=== PATIENT | female | born 1960 | race Caucasian/White ===

== ENCOUNTER → 2017-10-14 12:03 | Outpatient (CLI) | payer OTHER, SELFPAY | PROVIDERS: Family Provider Family Medicine; PCP Family Medicine; Visit Provider Family Medicine | DX: Z12.31 Encounter for screening mammogram for malignant neoplasm of breast (principal); N63.10 Unspecified lump in the right breast, unspecified quadrant | CPT/HCPCS: 77063; 77067 ==

== ENCOUNTER → 2017-10-19 12:13 | Outpatient (CLI) | payer OTHER, SELFPAY | PROVIDERS: Family Provider Family Medicine; PCP Family Medicine; Visit Provider Family Medicine | DX: R92.8 Other abnormal and inconclusive findings on diagnostic imaging of breast (principal) | CPT/HCPCS: 76642 ==

== ENCOUNTER → 2017-11-11 12:15 | Outpatient (CLI) | payer OTHER, SELFPAY ==
--- NOTE | 2017-11-11 12:17 | US_ITS ---
STUDY: ULTRASOUND BREAST - RIGHT REASON FOR EXAM: Female, 57 years old. Attempted ultrasound-guided biopsy of the 7 mm x 7 mm x 3 mm hypoechoic nodule at 11:00 position of the breast at 4 cm from the nipple. TECHNIQUE: Axial and longitudinal images of the RIGHT breast were performed with a high resolution ultrasound transducer. COMPARISON: Comparison is made with prior ultrasound dated October 19, 2017. FINDINGS: RIGHT Breast: Not technically able to do a biopsy of the mentioned nodular density due to limited visualization. US/Breast Limited Unilateral IMPRESSION: Incomplete biopsy of the hypoechoic nodular density at the 11:00 position breast at 4 cm from the nipple. A 3 month follow-up sonogram is recommended. ASSESSMENT CATEGORY: BIRADS Category 3: Probably Benign - Short-Interval Follow-up Suggested. A letter regarding these results will be sent to the patient by the facility within 30 days. Electronically Signed: Miguel Ackerman MD at 15:34 EDT Tel [phone], Service support ,
== END ==
PROVIDERS: Family Provider Family Medicine; PCP Family Medicine; Visit Provider Surgery
DX: N63.10 Unspecified lump in the right breast, unspecified quadrant (principal)
CPT/HCPCS: 76642

== ENCOUNTER → 2017-12-02 09:16 | Outpatient (CLI) | payer OTHER, SELFPAY ==
--- NOTE | 2017-12-02 09:19 | CT_ITS ---
STUDY: CT ABDOMEN AND PELVIS WITHOUT CONTRAST REASON FOR EXAM: Female, 57 years old. Kidney stone. Right lower quadrant pain x1 month. RADIATION DOSAGE (If Supplied By Facility): CTDIvol = ( 6.61 ) mGy, DLP = ( 307.08 ) mGycm TECHNIQUE: Transaxial images were obtained from the dome of the diaphragm to the symphysis pubis without oral contrast, and without intravenous contrast. Sagittal and coronal images were reconstructed. Individualized dose optimization techniques were used for this CT. COMPARISON: November 19, 2016 FINDINGS: The visualized lung bases are unremarkable. The visualized portions of the heart are within normal limits. There is a stable too small to characterize low-attenuation focus within segment 4 of the liver. Normal gallbladder and extrahepatic biliary system. Normal spleen. Normal pancreas. Normal bilateral adrenal glands. Normal right kidney. There is a nonobstructing 2.3 mm left renal calculus. Normal visualized stomach. Normal small intestine. Normal colon. There is non-visualization of the appendix. Normal abdominal aorta. Normal inferior vena cava. Normal retroperitoneum. Normal urinary bladder. Normal abdominal wall. There is degenerative disc disease noted at L5-S1. CT/Abdomen/Pelvis without Cont IMPRESSION: No acute intra-abdominal process. Nonobstructing 2.3 mm left renal calculus. L5-S1 degenerative disc disease. Electronically Signed: Radha Chung MD at 16:27 EDT Tel , Service support ,
== END ==
PROVIDERS: Family Provider Family Medicine; PCP Family Medicine; Referring Provider Urology; Visit Provider Urology
DX: N20.0 Calculus of kidney (principal); M51.37 Other intervertebral disc degeneration, lumbosacral region
CPT/HCPCS: 74176

== ENCOUNTER → 2018-11-01 09:56 | Outpatient (CLI) | payer OTHER, SELFPAY ==
[2017-10-31 13:55] VITALS: BMI 23.6
[2018-11-01 12:14] LABS: Hematocrit 40.8 % (37-47); Hemoglobin 12.9 g/dL (12.0-15.0); Mean Corp Hgb Conc 31.6 g/dL (32-36); Mean Corpuscular Hgb 31.5 pg (27.0-32.0); Mean Corpuscular Volume 99.8 fL (81-99); Mean Platelet Vol. 11.2 fl (6.2-12.0); Platelet Count 151 K/mm3 (150-450); RBC Distribution Width CV 11.9 % (11.6-14.6); RBC Distribution Width SD 43.5 fl (35.1-43.9); Red Blood Count 4.09 M/mm3 (4.2-5.4); White Blood Count 2.9 K/mm3 (4.4-11.0)
[2018-11-01 12:30] LABS: Iron 116 ug/dL (50-170)
== END ==
PROVIDERS: Family Provider Family Medicine; PCP Family Medicine; Referring Provider Internal Medicine Gastroenterology; Visit Provider Internal Medicine Gastroenterology
DX: K62.5 Hemorrhage of anus and rectum (principal); D64.9 Anemia, unspecified
CPT/HCPCS: 36415; 83540; 85027

== ENCOUNTER → 2018-11-01 10:22 | Outpatient (CLI) | payer OTHER, SELFPAY ==
[2017-10-31 13:55] VITALS: BMI 23.6
--- NOTE | 2018-11-01 10:28 | BI_ITS ---
MAMMOGRAPHY - BILATERAL SCREENING REASON FOR EXAM: Female, 58 years old. Routine annual screening examination. PERTINENT HISTORY: Grandmother with breast cancer. TECHNIQUE: Digital bilateral breast tiffanie (3D mammographic acquisition) in the CC and MLO projections. 2-D mediolateral oblique (MLO) and craniocaudad (CC) views of both breasts were obtained. CAD: Full Field Digital Mammography with Computer Added Detection was performed. COMPARISON: Comparison is made with prior examination dated October 14, 2017. FINDINGS: Breast Composition: There are scattered areas of fibroglandular density. There are no dominant masses or suspicious calcifications. The previously seen 4 mm nodule in the upper outer aspect of the right breast is not visualized at this time. No other significant abnormalities are identified. There has been no significant change since the prior study. BI/SCREEN MAMM (CAD) W/TIFFANIE BILAT IMPRESSION: Stable bilateral screening mammogram. Yearly follow-up mammogram recommended. (A) ASSESSMENT CATEGORY: BIRADS Category 2: Benign. A letter regarding these results will be sent to the patient by the facility within 30 days. Approximately 10% of breast cancers are not detected by mammography. A normal mammogram should not delay biopsy of a clinically suspicious abnormality. [id number] Electronically Signed: Miguel Ackerman, at 13:13 EDT , Service support ,
== END ==
PROVIDERS: Family Provider Family Medicine; PCP Family Medicine; Referring Provider Family Medicine; Visit Provider Family Medicine
DX: Z12.31 Encounter for screening mammogram for malignant neoplasm of breast (principal); Z80.3 Family history of malignant neoplasm of breast
CPT/HCPCS: 77063; 77067

== ENCOUNTER 2018-12-10 18:43 | Emergency (ER) | payer OTHER, SELFPAY ==
[2018-12-10 18:44] VITALS: BP 121/56; PULSE 82; RESP 12; TEMP 37.2; O2SAT 99; BMI 24.1
--- NOTE | 2018-12-10 19:28 | CT_ITS ---
STUDY: CT ABDOMEN AND PELVIS WITHOUT CONTRAST REASON FOR EXAM: Female, 58 years old. Left-sided abdominal pain. History of kidney stones. RADIATION DOSAGE (If Supplied By Facility): CTDIvol = ( 6.31 ) mGy, DLP = ( 291.64 ) mGycm TECHNIQUE: Transaxial images were obtained from the dome of the diaphragm to the symphysis pubis without oral contrast, and without intravenous contrast. Sagittal and coronal images were reconstructed. Individualized dose optimization techniques were used for this CT. COMPARISON: December 02, 2017. FINDINGS: Lung bases: Stable nonspecific 1 mm right middle lobe nodule (statistically benign given unchanged appearance; axial image 6 series 2). Minimal lingular atelectasis/scar. Heart: Unremarkable. Liver: Mild hepatic steatosis. Small hepatic hypodense lesion measuring cyst (axial image 51 series 2). Gallbladder/biliary ducts: Unremarkable. Pancreas: Unremarkable. Spleen: Unremarkable. Adrenal glands: Unremarkable. Kidneys/ureters/bladder: Mild urinary bladder underdistention/minimal wall thickening with subtle periureteral fat stranding (axial image 142 series 2). Nondilated ureters. No renal stones identified. No urinary tract stones identified. Bilateral symmetric noncontrast renal parenchyma. Uterus/adnexa: Physiologic appearance. Large bowel/small bowel: No acute process. Appendix: Unremarkable (coronal image 44 series 601). Gastroesophageal junction/stomach: Unremarkable. Retroperitoneum/lymph nodes: No intra-abdominal free air. No ascites. No pathologically enlarged lymph nodes. Vascular: Unremarkable. Osseous structures: Minimal degenerative features at L5-S1. No acute process. Subcutaneous/soft tissues: Tiny fat-containing umbilical hernia. No acute process. CT/Abdomen/Pelvis without Cont IMPRESSION: Mild urinary bladder wall thickening with stranding (suspected mild cystitis; correlate urinalysis) No obstructive uropathy or bladder/renal/ureteral stones Additional nonemergent findings, as above Electronically Signed: Eric Delatorre DO at 20:55 EDT Tel , Service support ,
--- NOTE | 2018-12-10 19:33 | ED.DCSUM_ITS ---
History of Present Illness Chief Complaint: Flank Pain Informant: Patient Onset: Days Context: Gradual Onset Timing: Intermittent Current Severity: Moderate Maximum Severity: Moderate Narrative: The patient presents to the emergency department with dysuria and flank pain. Patient has a history of kidney stone. She has required multiple lithotripsies in the past. She states over the past 3 days, she is had some pain with urination, increased frequency, urgency. She is began to have episodic flank pain. She denies any nausea vomiting. She denies any fevers or chills. She states this feels different than her normal kidney stones. Prior similar symptoms: No Recent Illness/Hospitalization: No Past Medical History - Allergies and Home Meds Allergies/Adverse Reactions: Allergies amoxicillin Allergy (Verified 12/10/18 18:44) Rash hydrocodone [From Vicodin] Allergy (Verified 12/10/18 18:44) Rash hydromorphone [From Dilaudid] Adverse Reaction (Verified 12/10/18 18:44) Other CHEYANNE BLOOD PRESSURE sulfamethoxazole [From Bactrim] Adverse Reaction (Verified 12/10/18 18:44) Nausea trimethoprim [From Bactrim] Adverse Reaction (Verified 12/10/18 18:44) Nausea Primary Care Physician: Red Hernandez MD [Primary Care Provider] - Prior records reviewed: Yes Past Medical History: - Surgical History: - - nephrolithiasis, cystoscopy, 2 c/s ablation Smoking Status: Former smoker - Family History Maternal Family History: Family History (Last Reviewed 10/31/17 @ 14:28 by Jayson Harrison MD) Daughter Cancer Asthma Father Cancer Mother Hypertension Thyroid disorder Family History: Reports: No pertinent history Paternal Family History: Family History (Last Reviewed 10/31/17 @ 14:28 by Jayson Harrison MD) Daughter Cancer Asthma Father Cancer Mother Hypertension Thyroid disorder Family History: Reports: No pertinent history Review of Systems ROS: - Recurrent kidney stone General: Denies: Chills, Fever, Sweats Eyes: Denies: Visual changes - bilaterally, Diplopia ENT: Denies: Rhinorrhea, Sore throat Cardiovascular: Denies: Chest pain, Palpitations Respiratory: Denies: Dyspnea, Cough, Dyspnea on exertion Gastrointestinal: Reports: Nausea. Denies: Abdominal pain, Vomiting, Diarrhea, Melena, Hematochezia Genitourinary: Reports: Dysuria, Hematuria, Frequency Musculoskeletal: Reports: Back pain. Denies: Extremity Pain Skin: Denies: Rash, Wounds Neurological: Denies: Headache, Weakness, Numbness Physical Exam Vital Signs/Narrative: Vital Signs Temp Pulse Resp BP Pulse Ox 12/10/18 18:44 98.9 F 82 12 121/56 H 99 Inital Vital Signs reviewed: Yes General: Well nourished, Well developed, No Acute Distress Head: Normocephalic, Atraumatic Eyes: Perrl, EOMI ENT: Moist mucous membranes, No rhinorrhea Neck: Supple, Nontender Cardiovascular: Regular rate, Regular rhythm, No murmurs Respiratory: No distress, CTA bilaterally, Chest nontender Abdomen: Soft, Nontender, Nondistended, Normal bowel sounds Back: Normal Inspection, CVA tenderness Extremities: Nontender, No edema Skin: Normal color, No rash Neurological: Alert, Oriented x3, Cranial nerves II-XII grossly intact, Normal Strength, Normal Sensation Psychological: Normal affect, Normal Mood Diagnostic/Tx/Re-eval Clinical Impression(s) from Imaging Studies Abdomen/Pelvis CT 12/10/18 19:28 IMPRESSION: Mild urinary bladder wall thickening with stranding (suspected mild cystitis; correlate urinalysis) No obstructive uropathy or bladder/renal/ureteral stones Additional nonemergent findings, as above Electronically Signed: Eric Delatorre DO at 20:55 EDT Tel , Service support , Abnormal Lab Results 12/10/18 12/10/18 12/10/18 20:00 20:05 20:05 WBC 6.7 RBC 3.94 L Hgb 12.3 Hct 39.4 MCV 100.0 H MCH 31.2 MCHC 31.2 L RDW Std Deviation 47.8 H RDW Coeff of Cathy 12.8 Plt Count 142 L MPV 10.8 Immature Gran % (Auto) 0.300 Neut % (Auto) 74.3 H Lymph % (Auto) 17.0 L Dickens % (Auto) 6.7 Eos % (Auto) 1.3 Baso % (Auto) 0.4 Absolute Neuts (auto) 5.0 Absolute Lymphs (auto) 1.14 Nucleated RBC % 0 Sodium 143 Potassium 3.7 Chloride 115 H Carbon Dioxide 24.0 Anion Gap 4 L BUN 14 Creatinine 0.98 Estim Creat Clear Calc 48.37 Est GFR (MDRD) Af Amer 76 Est GFR (MDRD) Non-Af 63 BUN/Creatinine Ratio 14.4 Glucose 89 Calcium 8.7 Urine Color Yellow Urine Clarity Cloudy Urine pH 6.0 Ur Specific [place] 1.020 Urine Protein 100 H Urine Glucose (UA) Normal Urine Ketones 5 H Urine Occult Blood 150 H Urine Nitrite Positive H Urine Bilirubin Negative Urine Urobilinogen Normal Ur Leukocyte Esterase 500 H Urine RBC 0-5 SEEN Urine WBC >100 SEEN Ur Squamous Epith Cells 0-5 SEEN Urine Bacteria 3+ Urine Mucus 0 SEEN - Medical Decision Making The patient presents to the emergency department with flank pain with dysuria. She does have history of rather large kidney stone. Her urine does appear to be infected, but I did want to rule out obstructing stone as this would complicate her recovery. The labs were obtained were unremarkable. The patient underwent CT imaging which does not show any acute renal pathology or obstructing stone. Given her allergies, the patient will be kept on Cipro. Urine culture was added. At this point, I do feel that she is safe for outpatient therapy. She is comfortable with this plan of care. Impression 1. Pyelonephritis ED Disposition - Plan for ED Patient: Instructions: PYELONEPHRITIS, Female (Adult) Prescriptions: Ciprofloxacin [Cipro] 500 mg PO BID #14 tab Prescription Printed Oxycodone HCl/Acetaminophen [Percocet 5/325] 1 tab PO Q6H PRN PRN 3 Days #12 tab PRN Reason: Pain Prescription Printed Referrals: Red Hernandez MD [Primary Care Provider] -
[2018-12-10] MEDS: 0.9% Normal Saline 1,000 ML 250 ML IV (19:59)
[2018-12-10] MEDS: Morphine 4 MG/ML Syringe IV (19:59)
[2018-12-10] MEDS: Ondansetron 4 MG/2 ML Vial IV (20:00)
[2018-12-10] MEDS: Ketorolac 30 MG/ML Syringe IV (20:00)
[2018-12-10 20:08] LABS: Mucous, Urine 0 SEEN /hpf (<or=2+)
[2018-12-10 20:10] LABS: Absolute Lymphocyte Count 1.14 X10^3/uL (0.83-4.51); Basophil# 0.03 X10^3/uL; Basophil% 0.4 % (0-1); Eosinophil# 0.09 X10^3/uL; Eosinophils% 1.3 % (0-5); Hematocrit 39.4 % (37-47); Hemoglobin 12.3 g/dL (12.0-15.0); Lymphocyte # 1.14 X10^3/ul (4.0); Mean Corp Hgb Conc 31.2 g/dL (32-36); Mean Corpuscular Hgb 31.2 pg (27.0-32.0); Mean Platelet Vol. 10.8 fl (6.2-12.0); Monocyte# 0.45 X10^3/uL; Monocyte% 6.7 % (0-10); NRBC Flagged by Analyzer 0 % (0-5); Neutrophil # 4.96 X10^3/uL (2.7-7.7); Neutrophil % 74.3 % (47-70); Platelet Count 142 K/mm3 (150-450); RBC Distribution Width CV 12.8 % (11.6-14.6); RBC Distribution Width SD 47.8 fl (35.1-43.9); Red Blood Count 3.94 M/mm3 (4.2-5.4); White Blood Count 6.7 K/mm3 (4.4-11.0)
[2018-12-10 20:11] LABS: Color, Urine Yellow (Yellow); Glucose, Dipstick Normal (Normal); Ketone-Dipstick 5 mg/dl (Negative); Leukocyte Esterase-Dipstick 500 /ul (Negative); Nitrite-Dipstick Positive (Negative); Occult Blood-Urine 150 /ul (Negative); Protein-Dipstick 100 mg/dl (Negative); Urine Bilirubin Dipstick Negative (Negative); Urine Clarity Cloudy (Clear); Urine Urobilinogen Normal (Normal)
[2018-12-10 20:19] LABS: White Blood Cells >100 SEEN /hpf (0-5)
[2018-12-10 20:20] LABS: Bacteria 3+ /hpf (None Seen); Red Blood Cells-Urine 0-5 SEEN /hpf (0-5); Squamous Epithelial Cells - UA 0-5 SEEN /hpf (5-10)
[2018-12-10 20:27] LABS: Anion Gap 4 (5-15); BUN 14 mg/dL (7-18); BUN/Creat Ratio 14.4 RATIO (10-20); Calcium,Total 8.7 mg/dL (8.5-10.1); Chloride 115 mmol/L (98-107); Creatinine, Serum 0.98 mg/dL (0.55-1.02); EST Glomerular Filtration Rate 63 mL/min (>60); Est Glom Filt Rate - Afr Amer 76 mL/min (>60); Estimated Creatinine Clearance 48.37 ml/min; Glucose 89 mg/dL (74-106); Potassium 3.7 mmol/L (3.5-5.1); Sodium Level 143 mmol/L (136-145)
[2018-12-10] MEDS: Ciprofloxacin 400 MG/200 ML BAG 200 MG IV (20:32)
[2018-12-10 21:26] VITALS: BP 111/58; PULSE 68; RESP 16; O2SAT 98
== END 2018-12-10 21:46 | disposition home or self-care (01) ==
LOC: ED 19:31
PROVIDERS: Emergency Provider Emergency Medicine; Family Provider Family Medicine; PCP Family Medicine
DX: N12 Tubulo-interstitial nephritis, not specified as acute or chronic (principal); Z87.442 Personal history of urinary calculi; Z87.891 Personal history of nicotine dependence
CPT/HCPCS: 74176; 80048; 81001; 85025; 87086; 87088; 87186; 96361; 96365; 96375; 99283; J7030; J0744; J2405

== ENCOUNTER → 2019-07-13 13:36 | Outpatient (CLI) | payer OTHER, SELFPAY ==
[2019-07-13 15:19] LABS: Color, Urine Yellow (Yellow); Glucose, Dipstick Normal (Normal); Leukocyte Esterase-Dipstick 500 /ul (Negative); Nitrite-Dipstick Negative (Negative); Occult Blood-Urine 150 /ul (Negative); Protein-Dipstick 30 mg/dl (Negative); Urine Bilirubin Dipstick Negative (Negative); Urine Clarity Clear (Clear); Urine Urobilinogen Normal (Normal)
[2019-07-13 15:24] LABS: Ketone-Dipstick 150 mg/dl (Negative)
== END ==
PROVIDERS: PCP Family Medicine; Referring Provider Urology; Visit Provider Urology
DX: N39.0 Urinary tract infection, site not specified (principal)
CPT/HCPCS: 81002; 87086

== ENCOUNTER 2020-07-22 20:35 | Observation (INO) | payer SELFPAY ==
[2020-06-11 10:02] VITALS: BMI 27.0
[2020-07-02 08:47] VITALS: BMI 27.0
--- NOTE | 2020-07-17 09:17 | EKG12_ITS ---
Test Reason : PREOP Blood Pressure : / mmHG Vent. Rate : 075 BPM Atrial Rate : 075 BPM P-R Int : 164 ms QRS Dur : 068 ms QT Int : 374 ms P-R-T Axes : 031 010 023 degrees QTc Int : 417 ms Normal sinus rhythm Low voltage QRS Borderline ECG Confirmed by ARCADIO BERGMAN, MICHELE ([id number]), supervising editor news reel HAWA CROUCH ([id number]) on 07/18/2020 10:31:59 AM Referred By: Devaughn Diaz Confirmed By:MICHELE ERVIN MD
--- NOTE | 2020-07-21 22:27 | HP.PCM_ITS ---
History and Physical Date of Admission: 07/22/20 HISTORY OF PRESENT ILLNESS Patient is a 60 year old female who presents for evaluation for abdominoplasty.? She has lost 50 lbs over the past couple years.? She is currently at a stable weight of 143 lbs.? Her ideal weight would be 120 lbs, but she states she does not know if that is a realistic weight for her. ? Because of her weight loss, she has developed redundant skin and subcutaneous tissue involving the lower anterior abdominal wall and the supra-umbilical abdominal wall.? With her history of pregnancies, she has developed permanent overstretching of her lower anterior abdominal wall and associated diastasis of her abdominal recti muscles.? She also presents with complaints of bilateral macromastia as well as associated painful symptomatology of neck pain, thoracic back pain, bilateral shoulder pain from shoulder grooving from the weight of her breasts on her bra straps, and inframammary intertrigo for which she uses powders for relief. She denies any trauma to her breasts.? Denies any nipple discharge.? She has been seeing a chiropractor for years for her neck and back pain without much relief in her painful symptomatology. ? Her last mammogram was done more than a couple of years ago.? She states her grandmother had a history of breast cancer.? She comes in today for a preop visit for her upcoming abdominoplasty surgery that is scheduled for 07/22/20. PAST MEDICAL HISTORY Anemia Chronic neck pain Chronic thoracic back pain Diastasis of rectus abdominis Excessive and redundant skin and subcutaneous tissue Excessive body weight loss Fatigue Frequent headaches Hemorrhoids HLD (hyperlipidemia) Hydronephrosis with urinary obstruction due to renal calculus Intertrigo Left ureteral stone Macromastia Nausea Nephrolithiasis Shoulder pain PAST SURGICAL HISTORY ear surgery section ALLERGIES amoxicillin hydrocodone [From Vicodin] hydromorphone [From Dilaudid] Adverse Reaction sulfamethoxazole [From Bactrim] trimethoprim [From Bactrim] MEDICATIONS topiramate FAMILY HISTORY Daughter - Thyroid cancer, Asthma Father - Cancer, bone Mother - Hypertension, Thyroid disorder, Dementia Other - Family history of breast cancer SOCIAL HISTORY Smoking Status:? Former smoker second hand exposure:? No alcohol intake:? current alcohol intake frequency: a few times a month substance use type:? does not use REVIEW OF SYSTEMS General - Denies fever, fatigue.? She has had an intentional 50 lb weight loss over the past couple years. Eyes - Denies cataracts and glaucoma. ENT - Denies nasal congestion and sore throat. History of ear surgery 2016. Endocrine - Denies excessive thirst and urination.? She does experience heat and cold intolerance. Skin - Denies suspicious lesions and skin cancer. Has inframammary intertrigo for which she uses powders for relief. Musculoskeletal - Denies joint pain, joint stiffness, weakness of muscles and joints, and arthritis. She has a history of neck and thoracic back pain.? She sees a chiropractor with no pain relief. Neuro - Has a history of headaches and migraines. Cardiovascular - Denies chest pain, fatigue, and shortness of breath with exertion. Psych - Denies anxiety and depression. Respiratory - Denies chronic cough and shortness of breath. ? Patient is a former smoker. Gastrointestinal - Denies nausea, vomiting, diarrhea, and constipation. Hematologic - Denies abnormal bruising and bleeding. She states she has a history of anemia. Genitourinary - Denies hematuria and urinary frequency.? She has a history of having x 2. PHYSICAL EXAMINATION General - Alert and oriented.? Bra size DD. HEENT - PERRL. EOMI. Throat is clear. Neck - Supple and no bony tenderness.? There is some pericervical soft tissue te nderness.? No cervical adenopathy. Lungs- Clear to auscultation. Heart - Regular rate and rhythm. Breasts - Patient has bilateral macromastia.? No breast masses palpable. No axillary adenopathy noted. Distance from midclavicular line on the left to the nipple is 27 cm and from the nipple to the inframammary fold is 10 cm. Distance from midclavicular line on the right to the nipple is 28 cm and from nipple to the inframammary fold is 10 cm. Nipple areolar complex diameter is 6 cm bilaterally.? No active inframammary intertrigo noted at this time. Abdomen - Soft and non distended. She has a low transverse scar in the pubic area.? She has redundant skin and subcutaneous tissue in the lower anterior abdominal wall and in the supra-umbilical area.? Has clinical diastasis of her abdominal recti muscles of about 5 cm. Back - No bony tenderness noted.? There is perivertebral soft tissue tenderness in the upper thoracic area. Extremities - FROM.? No axillary adenopathy.? Radial pulses are palpable. There is some bilateral shoulder tenderness with shoulder grooving from the weight of her breasts on her bra straps. Neuro - CN II-XII grossly intact. Psych - Normal mood and affect. ASSESSMENT 1.? Redundant skin and subcutaneous tissue abdominal wall. 2.? Diastasis of abdominal recti muscles. 3.? Recent weight loss. 4.? Unacceptable cosmetic appearance. 5.? Bilateral macromastia. 6.? Chronic neck pain. 7.? Chronic thoracic back pain. 8.? Bilateral shoulder pain from shoulder grooving from the weight of her breasts on her bra straps. 9.? Inframammary intertrigo. 10.? Family history of breast cancer. 11.? Former smoker. PLAN Patient is interested in rejuvenation of her abdominal wall due to redundant skin and subcutaneous tissue from recent weight loss. She has good skin elasticity.? She is a candidate for an abdominoplasty which dissects the abdominal wall skin to the subcostal margins.? The lower anterior abdominal wall skin and subcutaneous tissue would be excised.? Repair of the diastasis of her abdominal recti muscles would also be done. Discussed the extent of the scarring with the patient.? It is an horizontal incision located in the pubic area and extending laterally to the flank.? To help with contouring laterally in the flank areas, some power assisted lipoplasty may be done.? Will have drains in for several days and be maintained on antibiotics until the drains are removed.? She will wear an abdominal binder for 6 weeks. ? She will be on a lifting restriction for 6 weeks as well. Surgery would be done under general anesthesia with a surgical observation overnight stay in the hospital. Discussed with the patient that her insurance carrier will consider the abdominoplasty surgery as cosmetic, and she would be financially responsible for the procedure. She voices understanding.? Her abdominoplasty surgery is scheduled for 07/22/20. Any last minute questions the patient had with regard to her upcoming surgery were answered personally and to her satisfaction. Patient was informed of the risks and complications of the procedure including alternatives to surgery.? These were discussed with the patient personally.? Patient voices understanding and wishes to proceed. Some of the risks and complications were included in a form from the [place] [employer]. Potential risks and complications included but not inclusive of bleeding, infection, seroma, hematoma, bruising, swelling, prolonged need for drains, loss of sensation to skin, partial or complete loss of skin flap and/or nipple graft, wound breakdown, need for wound care, poor scarring, poor aesthetic outcome, intra operative cardiac or neurologic events, DVT, PE, and reaction to anesthesia. After her abdominoplasty surgery, will discuss timing of her breast reduction surgery. Discussed with the patient the procedure of breast reduction mammoplasty.? I feel this procedure would be beneficial in this patient as it would help relieve her painful symptomatology. Patient states she has not had a mammogram in a couple of years.? She will need one preoperatively.? Postoperatively, she would get a breast reduction baseline mammogram at some point. I would remove approximately 400 g of breast tissue per side.? We will send the tissue to pathology for analysis to rule out carcinoma. Discussed with patient the extent of scarring for this procedure.? The biggest risk for wound healing problems is the T-zone area.? Usually wound care and sometimes antibiotics are necessary for healing in this area. ? She would have drains in for a few days depending on the amount of tissue that is removed.? She will be on antibiotics until the drains are removed. In general, the final breast size ranges from a high B to a low C cup.? Patient voices understanding and would like to be in the C cup range. Surgery will be done under general anesthesia with a surgical observation overnight stay in the hospital. We will write a letter to her insurance carrier for medical approval after her abdominoplasty surgery. Patient was informed of the risks and complications of the procedure including alternatives to surgery.? These were discussed with her personally.? She voices understanding and wishes to proceed with the current plan of sending a letter to her insurance carrier for medical approval. Once approved for the breast reduction surgery, she will return for a preop visit to answer any last minute questions and to sign the office consent. We discussed the current risks associated with COVID-19. While it is understood that there is a community spread of COVID-19, the risk of evan COVID-19 while at [facility] ([facility]) is very low; however, the risk cannot be completely mitigated because of the community spread of the disease. We discussed in detail the risk of exposure to and/or potential harm posed by the COVID-19 virus with having a surgery/procedure at this time versus the risk of delaying the surgery/procedure. It is not possible to know either the risk of delaying the surgery or procedure or chance of getting an infection with perfect accuracy, but a joint decision was made to proceed at this time with the scheduled surgery/procedure as indicated on the consent form. Patient was notified that we will need to comply with any screening or testing WC wishes to perform or that surgery may be delayed for any positive results. Discussed with the patient that I was tested for COVID-19 on 08/23/19 which was negative and on 09/06/19 which was negative and on 09/20/19 which was negative and on 10/04/19 which was negative and on 10/18/19 which was negative and on 11/08/19 which was negative and on 11/29/19 which was negative and on 01/03/20 which was negative and on 01/24/20 which was negative and on 02/12/20 which was negative. ? My testing regimen at this time is to be COVID-19 tested every 2 weeks or so.? I received the COVID-19 vaccine (Moderna) on 02/20/20 and the second vaccine dose was received on 03/19/20.? When I was hospitalized on 04/21/20 I was tested for COVID-19 which was negative.? I was also? tested for COVID-19 on 05/06/20 which was negative and on 06/02/20 which was negative. Procedure Criteria Procedure Type:?Elective COVID Risk Discussion: The surgeon/proceduralist and patient have discussed in detail the risk of exposure to and/or potential harm posed by the COVID-19 virus with having a surgery/procedure at this time versus the risk of delaying the surgery/procedu re.? It is not possible to know either the risk of delaying the surgery or procedure or chance of getting an infection with perfect accuracy, but a joint decision was made between the patient and the surgeon/proceduralist to proceed at this time with the scheduled surgery/procedure as indicated on the consent form.
[2020-07-22] VITALS (17 sets, daily range): BP systolic 96–116; BP diastolic 49–67; PULSE 75–112; RESP 16–18; TEMP 36.2–37.2; O2SAT 94–97; BMI 27.3
[2020-07-22] MEDS: Lactated Ringers 1,000 ML 100 ML IV ×3 (06:45→13:39)
[2020-07-22] MEDS: Lidocaine 1% /Epi 1:100 (20ml) 20 ML Vial (08:59)
[2020-07-22] MEDS: Mupirocin Ointment 22gm Tube 1 APPLIC (12:35)
--- NOTE | 2020-07-22 13:47 | OP.PCM_ITS ---
Report of Operation Date of Procedure: 07/22/20 Pre-Operative Diagnosis: 1. Redundant skin and subcutaneous tissue abdominal w all. 2. Diastasis of abdominal recti muscles. 3. Recent weight loss. 4. Unacceptable cosmetic appearance. 5. Former smoker. Post-Operative Diagnosis: Same. Surgery/Procedure Performed:: Abdominoplasty. Description of Surgical Findings:: Patient is a 60 year old female who presents for evaluation for abdominoplasty. She has lost 50 lbs over the past couple years. She is currently at a stable weight of 143 lbs. Her ideal weight would be 120 lbs, but she states she does not know if that is a realistic weight for her. Because of her weight loss, she has developed redundant skin and subcutaneous tissue involving the lower anterior abdominal wall and the supra- umbilical abdominal wall. With her history of pregnancies, she has developed permanent overstretching of her lower anterior abdominal wall and associated diastasis of her abdominal recti muscles. Patient was informed of the risks and complications of the procedure including alternatives to surgery. These were discussed with the patient personally. Patient voices understanding and wishes to proceed. Some of the risks and complications were included in a form from the [employer]. Potential risks and complications included but not inclusive of bleeding, infection, seroma, hematoma, bruising, swelling, prolonged need for drains, loss of sensation to skin, partial or complete loss of skin flap and/or nipple graft, wound breakdown, need for wound care, poor scarring, poor aesthetic outcome, intra operative cardiac or neurologic events, DVT, PE, and reaction to anesthesia. I used Bk absorbable hemostat, (I used 2 vials). Reference Number - [id number]. Lot Number - [id number]. Expiration - December 18, 2024. I used 500 ml Tumescent Anesthetic Solution 0.05%. Normal Saline- 936.5 ml. Lidocaine 1% - 50 ml. Epinephrine (1 mg/ml) - 1 ml. Sodium Bicarbonate - 12.5 mEq I removed 300 ml fatty aspirate from the flank areas bilaterally. Surgeon: Devaughn Diaz paediatric thoracic physician: Charles Beltran Type of Anesthesia: General Specimen's removed: None. Drains: Mykel x2. Estimated Blood Loss (mL): 150. Fluids Replaced: 1600 ml (IV Fluids 1500 ml, Urine Output 100 ml). Description of Procedure: In the preop area, the patient stood for markings. I marked the sternum to the umbilicus and from the umbilicus to the pubic area. I sandor horizontal markings in the abdominal wall skin crease by the pubis. Laterally the markings extended to the anterior superior iliac spine. Patient was taken to OR in supine position and was placed under general anesthesia. The abdomen was prepped and draped in the usual fashion. Ioban draping was also used. SCD's were placed for DVT prophylaxis. Perioperative antibiotics were given intravenously. A florentino catheter was placed. Using xylocaine with e pinephrine, the horizontal marking was infiltrated. After waiting 5 minutes for the anesthetic to take effect, I made incision in the pubic area down through Mendez's fascia to the abdominal wall fascia. Dissection proceeded superiorly to the umbilicus. I made a marino incision in the umbilicus and dissected the abdominal wall skin flap off the umbilicus. I then proceeded with dissection up to the xiphoid. Lateral dissection was done to the lateral rectus sheath. There was about 4 cm of diastasis of his abdominal recti muscles. The wound was irrigated with saline. Hemostasis was obtained with electrocautery. Repair of her diastasis of abdominal recti muscles was done with 0 Surgipro in two layers. The first layer was horizontal mattress interrupted buried sutures. This was followed with a simple running suture. I placed two size 15 Mykel drains through separate stab incisions in the pubic area and secured to the skin with 3-0 Nylon suture. I then excised sub-Mendez's fat in the abdominal wall skin flap to minimize seroma postoperatively. I sprayed Bk absorbable hemostat into the wound also to minimize seroma formation postoperatively. I used two vials. I temporarily closed the incision with the patient flexed 30 degrees with 2-0 Vicryl interrupted sutures. The excess skin laterally was placed on a small amount of stretch and excised. After temporarily closing the incision, I placed vertical markings to aid in wound closure. I palpated the umbilicus through the skin and made an inferior V shaped incision. The temporary sutures were removed. Where the umbilical incision was made, I thinned out some of the subcutaneous tissue around the incision. I placed 3-0 Vicryl sutures from the dermis of the abdominal wall skin flap to the abdominal wall fascia and then the dermis of the umbilicus. I then placed 2-0 Vicryl sutures from the underlying fascia of the abdominal wall skin flap to the abdominal wall fascia with the flap placed on a little stretch to help minimize seroma formation. I placed 3 sutures on either side of the umbilicus. There was some redundant subcutaneous tissue in the pubic area that was excised to help with final contouring. Additional saline irrigation was done followed by Hemostasis with electrocautery. I then closed the abdominal incision with 2-0 Vicryl figure of eight interrupted sutures for Mendez's fascial layer. The deep dermis and subcutaneous tissue was approximated with 3-0 Monocryl interrupted sutures. The skin was approximated with 3-0 V lock unidirectional barbed running subcuticular suture. The 3-0 Vicryl sutures were then closed around the umbilicus in the four quadrants. Additional 3-0 Vicryl interrupted sutures were used for final umbilical closure. To help feather out and improve the contouring at the lateral ends of the incision into the flank areas, I used power assisted lipoplasty to help with the contouring in this area. I used the existing wound for the infiltration of the tumescent solution into the lateral aspects of the incision bilaterally. I infiltrated about 500 mL into the area. I then used power-assisted lipoplasty and removed about 300 mL of fatty aspirate from the lateral aspects of the incision bilaterally. I stopped when there was minimal friction and the areas felt clinically smooth and started developing some blood in the aspirate. This was followed by Histoacryl skin tissue adhesive. Kerlix gauze was placed over the lower incision followed by ABD pads for compression. An abdominal binder was then placed. Patient tolerated the procedure well and was sent to PACU in satisfactory condition. Patient will be sent home tomorrow when tolerating po analgesia. The drains will be removed in 10-14 days. She will be maintained on antibiotics until the drains are removed. She will maintain the abdominal wall binder for several weeks and keep head elevated and maintain lifting restriction. Grafts/Implants Used: None. Complications None. Admit VTE Documentation VTE Present on Admission: No VTE Mechan Device Prophylaxis: SCD's VTE Pharm Prophylaxis ordered?: Yes Addendum Addendum: Surgery Charges (This is a cosmetic procedure and the patient already paid) CPT - 36174 ICD-10 - L98.7, M62.08, R63.4, Z41.1, Z87.891 [id number] L98.7, M62.08, R63.4, Z41.1, Z87.891
[2020-07-22] MEDS: oxyCODONE 5 MG Tablet 10 MG PO ×2 (18:38→22:48)
[2020-07-22] MEDS: Juven (unflavored) Packet 1 PACKET PO (18:39)
[2020-07-22] MEDS: 0.9% Saline Lock 10 ML Syringe IV (20:42)
[2020-07-22] MEDS: Morphine 4 MG/ML Syringe IV (20:43)
[2020-07-22] MEDS: traZODone 100 MG Tablet PO (22:42)
[2020-07-22] MEDS: Docusate Sodium 100 MG Capsule PO (22:42)
[2020-07-22] MEDS: Lactated Ringers 1,000 ML 60 ML IV (22:48)
[2020-07-23] MEDS: 0.9% Saline Lock 10 ML Syringe IV (01:59)
[2020-07-23] MEDS: Morphine 4 MG/ML Syringe IV (01:59)
[2020-07-23 02:02] VITALS: BP 97/60; PULSE 96; RESP 16; TEMP 36.8; O2SAT 96
[2020-07-23] MEDS: oxyCODONE 5 MG Tablet 10 MG PO ×2 (05:37→12:48)
[2020-07-23] MEDS: Enoxaparin 40 MG/0.4 ML Syringe SC (05:42)
[2020-07-23] MEDS: Acetaminophen 500 MG Tablet PO (06:07)
[2020-07-23] MEDS: DiphenhydrAMINE 25 MG Capsule 50 MG PO ×2 (06:08→12:48)
[2020-07-23 07:30] LABS: Hematocrit 31.1 % (37-47); Hemoglobin 9.7 g/dL (12.0-15.0); Mean Corp Hgb Conc 31.2 g/dL (32-36); Mean Corpuscular Hgb 31.5 pg (27.0-32.0); Mean Platelet Vol. 10.4 fl (6.2-12.0); Platelet Count 136 K/mm3 (150-450); RBC Distribution Width CV 12.9 % (11.6-14.6); RBC Distribution Width SD 47.9 fl (35.1-43.9); Red Blood Count 3.08 M/mm3 (4.2-5.4); White Blood Count 4.1 K/mm3 (4.4-11.0)
[2020-07-23] MEDS: Juven (unflavored) Packet 1 PACKET PO (08:01)
[2020-07-23] MEDS: Docusate Sodium 100 MG Capsule PO (08:01)
[2020-07-23 08:05] VITALS: BP 98/78; PULSE 96; RESP 16; TEMP 36.6; O2SAT 95
[2020-07-23 08:06] LABS: Anion Gap 3 (5-15); BUN 9 mg/dL (7-18); BUN/Creat Ratio 11.3 RATIO (10-20); Calcium,Total 8.2 mg/dL (8.5-10.1); Chloride 107 mmol/L (98-107); EST Glomerular Filtration Rate 79 mL/min (>60); Est Glom Filt Rate - Afr Amer 95 mL/min (>60); Estimated Creatinine Clearance 57.84 ml/min; Glucose 98 mg/dL (74-106); Potassium 3.6 mmol/L (3.5-5.1); Prealbumin 17.5 mg/dL (20.0-40.0); Sodium Level 141 mmol/L (136-145)
--- NOTE | 2020-07-23 13:32 | PCM.PN.SRG ---
Subjective Subjective Postop #1 Patient resting comfortably. Has some itching probably from the Cleocin. Will send home on Levaquin until the drains are removed. She is tolerating po analgesia. Objective Data Objective Data Vital Signs: Vital Signs Temp Pulse Resp BP Pulse Ox 97.8 F 96 16 98/78 95 07/23/20 08:05 07/23/20 08:05 07/23/20 08:05 07/23/20 08:05 07/23/20 08:05 Oxygen Delivery Method Room Air Weight: 144 lb 13.499 oz Body Mass Index (BMI) 27.3 Intake & Output: Intake and Output for Last 24 Hours 07/21/20 07/22/20 07/23/20 23:59 23:59 23:59 Intake Total 3556 / 3556 2208 / 2208 Output Total 1100 / 1100 2710 / 2710 Balance 2456 / 2456 -502 / -502 Drainage 150 ml yesterday, 60 ml today. Lab / Micro Data Attestation: I reviewed the patient's lab results. Lab results narrative: Her Hgb was 9.7. Back in 2019, it was 12.3. Will start Iron supplementation. There is no clinical evidence of ongoing blood loss at this time. Will recheck a Hgb next week in the office. Result Diagrams: 07/23/20 06:25 07/23/20 06:25 Labs: Laboratory Results - last 24 hr 07/23/20 07/23/20 06:25 06:25 WBC 4.1 L RBC 3.08 L Hgb 9.7 L Hct 31.1 L MCV 101.0 H MCH 31.5 MCHC 31.2 L RDW Std Deviation 47.9 H RDW Coeff of Cathy 12.9 Plt Count 136 L MPV 10.4 Sodium 141 Potassium 3.6 Chloride 107 Carbon Dioxide 31.0 Anion Gap 3 L BUN 9 Creatinine 0.80 Estim Creat Clear Calc 57.84 Est GFR (MDRD) Af Amer 95 Est GFR (MDRD) Non-Af 79 BUN/Creatinine Ratio 11.3 Glucose 98 Calcium 8.2 L Prealbumin 17.5 L Physical Exam Const alert and oriented x3 Constitutional Narrative: She has been a little sleepy from the pain medication. General Appearance: comfortable HEENT HEENT Narrative: PERRL. EOMI. Neck no lymphadenopathy and supple Neck Narrative: nontender Skin Skin Narrative: Abdominal incision dry and intact. Umbilicus viable. No clinical evidence of hematoma. Mild bruising at skin edge. Will observe. Good abdominal contour noted. Neuro Neuro Narrative: CN II-XII grossly intact. Psych mental status grossly normal and affect normal Assessment & Plan Assessment/Plan (1) Excessive and redundant skin and subcutaneous tissue: (2) Diastasis of rectus abdominis: (3) Excessive body weight loss: (4) Elective procedure for unacceptable cosmetic appearance: (5) Former smoker: (6) Drug-induced pruritus: (7) Acute postoperative anemia due to expected blood loss: PLAN: Abdominal incision is dry and intact. No clinical evidence of hematoma. No clinical evidence of ongoing blood loss at this time. Her Hgb was 9.7. Her I's/O's are positive 2 liters so there is some IV dilution. The operative blood loss was 150 ml. The postop drainage was 150 ml yesterday and 60 ml today. Will start Iron supplementation. Will send a script for it to her Pharmacy. Will recheck a Hgb in the office next week. Her itching is better. I suspect allergy to her antibiotic, Cleocin. Switched to Levaquin. Her Prealbumin was 17.5. Encourage nutritional supplementation with protein to help the healing process. She is tolerating po analgesia. She is ambulating without problems. Will discharge home today. Wrote script for Levaquin (14 tabs) until the drains are removed. Wrote scripts for Percocet for pain, 2.5 mg, (28 tabs) and for Valium for spasm, 2 mg, (14 tabs). Wrote script for Hydroxyzine for her itching (30 tabs) and a refill. Wrote script for Iron supplementation (30 tabs) and 3 refills. Wrote scripts for Phenergan for nausea (30 tabs) and a refill and for Colace for constipation (60 tabs). Keep head elevated. Continue 20 lb lifting restriction. Continue dry dressings daily. Continue abdominal binder. Will remove the drains in the office in 10-14 days. Followup office one week.
--- NOTE | 2020-07-23 13:45 | PCM.DC ---
Discharge Instructions Diet Discharge Diet: No restrictions (encourage nutritional supplementation with protein to help the healing process.) Activity Discharge Activity: May Not Drive, May Not Shower (until the drains are removed. ) and - (keep head elevated. no heavy lifting. wear abdominal binder.) May shower in (days): 14 (after the drains are removed.) May resume sexual activity in: 4-6 weeks Weight Bearing Status: Weight bearing as tolerated Lifting Restrictions: 20 lbs. Keep extremity elevated above heart level: - (elevate head.) Dressing / Incision Call your doctor if your incision/area has: Continuous Slow Oozing, Sudden Increased Bleeding, Foul Smelling Discharge and Swelling at the incision site Call your doctor if you observe: Fever of 101 or Higher, Coldness, Increased Pain, Shortness of breath, Dizziness, Chest pain, Calf discomfort and Uncontrolled pain Suture Line Care: Avoid Pulling/Pushing (dry dressings daily followed by abdominal binder.) Change Dressing in: 1 day (dry dressings daily followed by abdominal binder.) Cleanse incision/area with: Do not get Incision Wet (until the drains are removed.) and Keep Dressing Clean & Dry Drain: Suction (davina drain x2 to bulb suction. empty and record drainage output daily.) Follow Up Care Please Follow Up With: Devaughn Diaz MD When: one week. call [phone] for appt. Test Results: Test results from this visit will be discussed in further detail at your follow-up appointment, if applicable. Discharge Plan Admission Admit Date/Time: 07/22/20 20:35 Attending Provider: Devaughn Diaz Primary Care Provider: Red Hernandez Instructions Patient Instructions: Anemia Discharge Orders/Prescriptions Prescriptions: New levofloxacin 500 mg tablet 500 mg PO DAILY Qty: 14 RF: 0 oxycodone-acetaminophen [Percocet] 2.5-325 mg tablet 1 tab PO Q6H PRN (Reason: pain (scale score 7-10)) 7 Days RF: 0 diazepam [Valium] 2 mg tablet 2 mg PO BID PRN (Reason: spasms) Qty: 14 RF: 0 iron ps [id number] acid 150-25-1 mg-mcg-mg capsule 1 cap PO DAILY Qty: 30 RF: 3 hydroxyzine HCl 25 mg tablet 25 mg PO TID PRN (Reason: itching) Qty: 30 RF: 1 docusate sodium [Colace] 100 mg capsule 100 mg PO BID Qty: 60 RF: 0 promethazine 25 mg tablet 25 mg PO Q6H PRN (Reason: nausea and vomiting) Qty: 30 RF: 1 oxycodone-acetaminophen [Percocet] 2.5-325 mg tablet 1 tab PO Q6H PRN (Reason: pain (scale score 7-10)) 7 Days Qty: 28 RF: 0 Continued trazodone 100 mg Tablet 100 mg PO QHS RF: 0 Other Ambulatory Orders: CBC-Complete Blood Cnt No Diff (Routine) Timeframe: 1 Week Facility: [facility] - Location: Laboratory, [facility] Ordered By: Dr. Devaughn Diaz Referrals / Follow Up: Red Hernandez MD [Primary Care Provider] - Disposition Disposition (needs filled in before D/C Order can be placed): Home, self care
[2020-07-23 16:00] VITALS: BP 112/62; PULSE 108; RESP 16; TEMP 36.6; O2SAT 97
== END 2020-07-23 16:15 | disposition home or self-care (01) ==
LOC: SDC 21:55 → MS3 21:55
PROVIDERS: Admitting Provider Surgery; PCP Family Medicine; Referring Provider Surgery; Visit Provider Surgery
PROC: (CPT 15830; principal; 2020-07-22 07:15)
DX: L98.7 Excessive and redundant skin and subcutaneous tissue (principal); M62.08 Separation of muscle (nontraumatic), other site; N62 Hypertrophy of breast; M54.6 Pain in thoracic spine; M25.512 Pain in left shoulder; M25.511 Pain in right shoulder; M54.2 Cervicalgia; E78.5 Hyperlipidemia, unspecified; L30.4 Erythema intertrigo; L29.9 Pruritus, unspecified; Z87.891 Personal history of nicotine dependence; Z79.899 Other long term (current) drug therapy; G25.81 Restless legs syndrome
CPT/HCPCS: 00802; 15830; 15847; 36415; 80048; 84134; 85027; 93005; 96365; 96366; 96372; 96375; 96376; 99218; 99251; J7030; J7120; A4216; G0378; G0379; G0463; J2405

== ENCOUNTER → 2020-07-30 15:42 | Outpatient (CLI) | payer OTHER, SELFPAY ==
[2020-07-30 15:25] VITALS: BMI 27.3
[2020-07-30 16:19] LABS: Hematocrit 35.3 % (37-47); Hemoglobin 11.3 g/dL (12.0-15.0); Mean Corpuscular Hgb 31.2 pg (27.0-32.0); Mean Corpuscular Volume 97.5 fL (81-99); Mean Platelet Vol. 10.1 fl (6.2-12.0); Platelet Count 220 K/mm3 (150-450); RBC Distribution Width CV 12.9 % (11.6-14.6); RBC Distribution Width SD 45.6 fl (35.1-43.9); Red Blood Count 3.62 M/mm3 (4.2-5.4); White Blood Count 4.3 K/mm3 (4.4-11.0)
== END ==
PROVIDERS: PCP Family Medicine; Referring Provider Surgery; Visit Provider Surgery
DX: D62 Acute posthemorrhagic anemia (principal)
CPT/HCPCS: 36415; 85027

== ENCOUNTER → 2020-10-10 09:05 | Outpatient (CLI) | payer OTHER, SELFPAY ==
[2020-09-18 13:35] VITALS: BMI 27.3
--- NOTE | 2020-10-10 10:16 | NEURO ---
NCS and/or EMG Patient Report Ordering Doctor: Kieran Sultana DATE OF SERVICE: 10/10/20 Indication: Tingling and intermittent numbness of the middle digits on the right hand. No associated weakness, neck pain or radicular symptoms. Findings: Nerve conduction studies were performed in the right upper extremity. The right median motor study recording the abductor pollicis brevis showed a normal amplitude, normal distal latency and normal conduction velocity. The right ulnar motor study recording the abductor digiti minimi showed a normal amplitude, normal distal latency and normal conduction velocity. No conduction block or focal slowing was present across the elbow. The right median sensory response recording digit two showed a normal amplitude, latency and conduction velocity. The right ulnar sensory response recording digit five showed a normal amplitude, latency and conduction velocity. The right radial sensory response recording over the extensor snuff box showed a normal amplitude, latency and conduction velocity. As the sensory symptoms of a C6-7 radiculopathy are similar to those of median entrapment at the wrist, additional internal comparison studies were done to help exclude a possible median neuropathy at the wrist. Right median-ulnar lumbrical / interosseous motor latencies showed a mild prolongation of the median response compared to the ulnar. Needle EMG of the right upper extremity and cervical paraspinal muscles was performed. No denervation was seen in any muscle. All motor unit morphology, activation and recruitment patterns were normal. Impression: This is a borderline study. There is no electrophysiologic evidence of cervical radiculopathy in either the right upper extremity. Please note: the electrodiagnosis of radiculopathy is made on the basis of excluding peripheral nerve lesions on nerve conduction studies and the needle EMG demonstrating denervation and/or reinnervation in the distribution of one or more nerve roots (i.e., acute and/or chronic axonal loss). Thus, electrodiagnostic studies are insensitive in detecting radiculopathy in the absence of axonal loss (e.g., in the setting of compression resulting in intermittent ischemia or mechanical deformation; or demyelination without axonal loss). Thus, clinical correlation is required in the interpretation of this negative electrodiagnostic study for radiculopathy. The mildly abnormal internal comparison study showing relative median nerve slowing at the wrist is of unclear significance. There is no other data to support an entrapment neuropathy at the carpal tunnel. If desired, a neuromuscular ultrasound of the wrist could be considered. Dionisio Ledezma D.O.
== END ==
PROVIDERS: PCP Family Medicine; Referring Provider Orthopaedic Surgery; Visit Provider Orthopaedic Surgery
DX: R20.2 Paresthesia of skin (principal)
CPT/HCPCS: 95886; 95910

== ENCOUNTER → 2021-02-03 10:28 | Outpatient (CLI) | payer OTHER, SELFPAY ==
--- NOTE | 2021-02-03 10:29 | BI_ITS ---
MAMMOGRAPHY - BILATERAL SCREENING REASON FOR EXAM: Female, 61 years old. Routine annual screening examination. PERTINENT HISTORY: Grandmothers with breast cancer. TECHNIQUE: Digital bilateral breast tiffanie (3D mammographic acquisition) in the CC and MLO projections. 2-D mediolateral oblique (MLO) and craniocaudad (CC) views of both breasts were obtained. CAD: Full Field Digital Mammography with Computer Added Detection was performed. COMPARISON: Comparison is made with prior study 11/01/2018 and 10/14/2017. FINDINGS: Breast Composition: There are scattered areas of fibroglandular density. There are no dominant masses or suspicious calcifications. No other significant abnormalities are identified. There has been no significant change since the prior study. BI/SCRN MAMM (CAD)W/TIFFANIE BILAT IMPRESSION: Stable bilateral screening mammogram. Yearly follow-up mammogram recommended. (A) ASSESSMENT CATEGORY: BIRADS Category 1: Negative. A letter regarding these results will be sent to the patient by the facility within 30 days. Approximately 10% of breast cancers are not detected by mammography. A normal mammogram should not delay biopsy of a clinically suspicious abnormality. [id number] Electronically Signed: Miguel Ackerman MD at 11:03 EST , Service support ,
== END ==
PROVIDERS: PCP Family Medicine; Visit Provider Surgery
DX: Z12.31 Encounter for screening mammogram for malignant neoplasm of breast (principal); N62 Hypertrophy of breast; Z80.3 Family history of malignant neoplasm of breast
CPT/HCPCS: 77063; 77067

== ENCOUNTER 2021-04-15 16:21 | Observation (INO) | payer OTHER, SELFPAY ==
[2021-04-15] VITALS (12 sets, daily range): BP systolic 97–110; BP diastolic 48–80; PULSE 71–98; RESP 15–16; TEMP 36.4–36.7; O2SAT 88–100; BMI 28.7
--- NOTE | 2021-04-15 | BR_PTH ---
PATIENT: MARK ANDERSON LOC: MS3 U#:[id number] AGE/SX: 61/F ROOM: [facility] [place] RE04/15/[address]: Dr. Devaughn Diaz MD : 1960 BED: 1 DIS: 04/16/2021 SPEC #: [id number] RECD: 04/15/21 15:04 STATUS: ANA SILVAPb #: [id number] ANDREY: 04/15/21 00:[address]: Devaughn Diaz DEPT: SURGICAL PATHOLOGY RECD BY: Isreal Marks ENTERED: 04/16/21 08:37 SP TYPE: MAMOPLASTY OTHR DR: Dr. Red Hernandez MD Tissues: B - Right breast, NOS A - Left breast, NOS Procedures: Surgery Specimen Level IV HEADER OPERATION: ERAS, breast reduction mammoplasty, revision painful scar PRE-OP DIAGNOSIS: Bilateral macromastia; neck and thoracic back pain; bilateral shoulder pain, inframammary intertrigo TISSUE SUBMITTED: A ? Left breast tissue, B ? Right breast tissue MICROSCOPIC DIAGNOSIS A. Left breast tissue, reduction mammoplasty: Focal nonproliferative fibrocystic change. Skin with no pathologic change. B. Right breast tissue, reduction mammoplasty: Focal nonproliferative fibrocystic change. Skin with no pathologic change. Microscopic fibroadenoma. AM:kristie 04/17/2021 MICROSCOPIC DESCRIPTION Slides are reviewed. GROSS DESCRIPTION A - Received in fixative is one container labeled with the patient's name and designated left breast tissue. The specimen consists of multiple irregular fragments of yellow-aggarwal fibrofatty tissue. Several of the larger fragments contain adherent pink-aggarwal skin with no skin lesions. The fragments range in size from 0.3-10.5 cm and in aggregate weigh 589 gm. Serial sections reveal yellow fatty tissue interrupted occasionally by dense white fibrous streaks. No distinct mass lesions are identified. Attached skin ranges in size from 6-8 cm. Electronic Bench Technician sections are submitted in five cassettes. B - Received in fixative is one container labeled with the patient's name and designated right breast tissue. The specimen consists of multiple irregular fragments of yellow-aggarwal fibrofatty tissue. Several of the larger fragments contain adherent pink-aggarwal skin with no skin lesions. The fragments range in size from 1-12 cm and in aggregate weigh 520 gm. Serial sections reveal yellow fatty tissue interrupted occasionally by dense white fibrous streaks. No distinct mass lesions are identified. Attached skin ranges in size from 3-10 cm. Electronic Bench Technician sections are submitted in five cassettes. / AM:kristie 04/16/2021 TC:5 CPT: 78732 x2
--- NOTE | 2021-04-15 01:08 | PCM.HP.BLA ---
History and Physical Date of Admission: 04/15/21 HISTORY OF PRESENT ILLNESS 61 year old woman presents with complaints of bilateral macromastia as well as associated painful symptomatology of neck pain, thoracic back pain, bilateral shoulder pain from shoulder grooving from the weight of her breasts on her bra straps, and inframammary intertrigo for which she uses powders for relief. She denies any trauma to her breasts. Denies any nipple discharge. She has been seeing a chiropractor for years for her neck and back pain without much relief in her painful symptomatology. She had a mammogram on 02/03/21. It showed There are scattered areas of fibroglandular density. There are no dominant masses or suspicious calcifications. No other significant abnormalities are identified. She states her grandmother had a history of breast cancer. She has lost 50 lbs over the past couple years. She is currently at a stable weight of 149 lbs. She presents at this time for further evaluation and treatment. PAST MEDICAL HISTORY Acute postoperative anemia due to expected blood loss Alcohol use Anemia Chronic neck pain Chronic thoracic back pain Diastasis of rectus abdominis Drug-induced pruritus Excessive and redundant skin and subcutaneous tissue Excessive body weight loss Fatigue Frequent headaches, migraine Hemorrhoids HLD (hyperlipidemia) Hydronephrosis with urinary obstruction due to renal calculus Intertrigo Left ureteral stone Macromastia Nausea Nephrolithiasis Restless legs Shoulder pain Wears glasses PAST SURGICAL HISTORY History of abdominoplasty History of ear surgery Hx of section Hx of cystoscopy (~11/17/16) Hx of tubal ligation ALLERGIES clindamycin [From Cleocin] amoxicillin hydrocodone [From Vicodin] hydromorphone [From Dilaudid] sulfamethoxazole [From Bactrim] trimethoprim [From Bactrim] MEDICATIONS trazodone FAMILY HISTORY Daughter Cancer Thyroid cancer Asthma Father Cancer bone Mother Hypertension Thyroid disorder Dementia Other Family history of breast cancer SOCIAL HISTORY Smoking Status: Former smoker second hand exposure: No alcohol intake: current alcohol intake frequency: a few times a month substance use type: does not use REVIEW OF SYSTEMS General - Denies fever, fatigue. She has had an intentional 50 lb weight loss over the past couple years. Eyes - Denies cataracts and glaucoma. ENT - Denies nasal congestion and sore throat. History of ear surgery 2016. Endocrine - Denies excessive thirst and urination. She does experience heat and cold intolerance. Has family history of breast cancer. Skin - Denies suspicious lesions and skin cancer. Has inframammary intertrigo for which she uses powders for relief. Musculoskeletal - Denies joint pain, joint stiffness, weakness of muscles and joints, and arthritis. She has a history of neck and thoracic back pain. She sees a chiropractor with no pain relief. Neuro - Has a history of headaches and migraines. Cardiovascular - Denies chest pain, fatigue, and shortness of breath with exertion. Psych - Denies anxiety and depression. Respiratory - Denies chronic cough and shortness of breath. Patient is a former smoker. Gastrointestinal - Denies nausea, vomiting, diarrhea, and constipation. Hematologic - Denies abnormal bruising and bleeding. She states she has a history of anemia. Genitourinary - Denies hematuria and urinary frequency. She has a history of having x 2. PHYSICAL EXAMINATION General - Alert and oriented. Bra size DD. HEENT - PERRL. EOMI. Throat is clear. Neck - Supple and no bony tenderness. There is some pericervical soft tissue tenderness. No cervical adenopathy. Lungs- Clear to auscultation. Heart - Regular rate and rhythm. Breasts - Patient has bilateral macromastia. No breast masses palpable. No axillary adenopathy noted. Distance from midclavicular line on the left to the nipple is 27 cm and from the nipple to the inframammary fold is 10 cm. Distance from midclavicular line on the right to the nipple is 28 cm and from nipple to the inframammary fold is 10 cm. Nipple areolar complex diameter is 6 cm bilaterally. No active inframammary intertrigo noted at this time. Abdomen - Soft and non distended. She has a low transverse abdominal wall scar that is well healed. Has some mild redundant skin laterally about 5 cm on each side. Mild tenderness to palpation. No evidence of infection. Back - No bony tenderness noted. There is perivertebral soft tissue tenderness in the upper thoracic area. Extremities - FROM. No axillary adenopathy. Radial pulses are palpable. There is some bilateral shoulder tenderness with shoulder grooving from the weight of her breasts on her bra straps. Neuro - CN II-XII grossly intact. Psych - Normal mood and affect. ASSESSMENT 1. Bilateral macromastia. 2. Neck pain. 3. Thoracic back pain. 4. Bilateral shoulder pain from shoulder grooving from the weight of the breasts on her bra straps. 5. Inframammary intertrigo. 6. Family history of breast cancer. 7. Recent weight loss. 8. Former smoker. 9. History of abdominoplasty. 10. Painful scar contour deformity abdominal wall. PLAN Discussed with the patient the procedure of breast reduction mammoplasty. I feel this procedure would be beneficial in this patient as it would help relieve her painful symptomatology. Patient had a mammogram on . It showed There are scattered areas of fibroglandular density. There are no dominant masses or suspicious calcifications. No other significant abnormalities are identified. Postoperatively, she would get a breast reduction baseline mammogram at some point. I would remove approximately 500 g of breast tissue per side. We will send the tissue to pathology for analysis to rule out carcinoma. Discussed with patient the extent of scarring for this procedure. The biggest risk for wound healing problems is the T-zone area. Usually wound care and sometimes antibiotics are necessary for healing in this area. She would have drains in for a few days depending on the amount of tissue that is removed. She will be on antibiotics until the drains are removed. In general, the final breast size ranges from a high B to a low C cup. Patient voices understanding and would like to be in the B cup range. Surgery will be done under general anesthesia with a surgical observation overnight stay in the hospital. We have received medical approval for the breast reduction surgery from her insurance carrier. Patient was informed of the risks and complications of the procedure including alternatives to surgery. These were discussed with her personally. She voices understanding and wishes to proceed. Some of the risks and complications were included in a form from the [employer]. Potential risks and complications included but not inclusive of bleeding, infection seroma, hematoma, bruising, swelling, prolonged need for drains, loss of sensation to skin, partial or complete loss of skin flap and/or nipple, wound breakdown, need for wound care, poor scarring, poor aesthetic outcome, intra operative cardiac or neurologic events, DVT, PE, and reaction to anesthesia. She returned for a preop visit to answer any last minute questions and to sign the office consent. Her answers were answered personally and to her satisfaction. At the time of the breast reduction mammaplasty, will excise the mild redundant skin contour deformity on the lateral aspects of the abdominal wall scar. We discussed the current risks associated with COVID-19. While it is understood that there is a community spread of COVID-19, the risk of evan COVID-19 while at [facility] ([facility]) is very low; however, the risk cannot be completely mitigated because of the community spread of the disease. We discussed in detail the risk of exposure to and/or potential harm posed by the COVID-19 virus with having a surgery/procedure at this time versus the risk of delaying the surgery/procedure. It is not possible to know either the risk of delaying the surgery or procedure or chance of getting an infection with perfect accuracy, but a joint decision was made to proceed at this time with the scheduled surgery/procedure as indicated on the consent form. Patient was notified that we will need to comply with any screening or testing [facility] wishes to perform or that surgery may be delayed for any positive results.
[2021-04-15 07:09] LABS: Hematocrit 41.1 % (37-47); Hemoglobin 13.4 g/dL (12.0-15.0); Mean Corp Hgb Conc 32.6 g/dL (32-36); Mean Corpuscular Hgb 31.7 pg (27.0-32.0); Mean Corpuscular Volume 97.2 fL (81-99); Mean Platelet Vol. 11.4 fl (6.2-12.0); Platelet Count 144 K/mm3 (150-450); RBC Distribution Width CV 12.2 % (11.6-14.6); RBC Distribution Width SD 43.8 fl (35.1-43.9); Red Blood Count 4.23 M/mm3 (4.2-5.4); White Blood Count 2.9 K/mm3 (4.4-11.0)
[2021-04-15] MEDS: Scopolamine 1mg/72hr Patch 1 PATCH TD (07:19)
[2021-04-15] MEDS: Acetaminophen 500 MG Tablet 1000 MG PO ×2 (07:20→23:40)
[2021-04-15] MEDS: Gabapentin 600 MG Tablet PO ×2 (07:20)
[2021-04-15] MEDS: Lactated Ringers 1,000 ML 40 ML IV ×3 (07:20→11:45)
[2021-04-15 07:49] LABS: Magnesium 2.1 mg/dL (1.6-2.6)
[2021-04-15 08:11] LABS: Bedside Glucose 71 mg/dL (70-110)
[2021-04-15] MEDS: Cefazolin 2 GM in 0.9% Normal Saline 100 ML IV (08:50)
[2021-04-15] MEDS: Lidocaine 1% /Epi 1:100 (50ml) 50 ML VIAL (09:30)
[2021-04-15] MEDS: Lactated Ringers 1,000 ML 60 ML IV ×2 (14:30→18:16)
--- NOTE | 2021-04-15 15:01 | OP.PCM_ITS ---
Problems Associated Problem List Diagnoses (1) Macromastia: (2) Chronic neck pain: (3) Chronic thoracic back pain: (4) Shoulder pain: (5) Intertrigo: (6) Family history of breast cancer: (7) Excessive body weight loss: (8) Former smoker: (9) History of abdominoplasty: Report of Operation Date of Procedure: 04/15/21 Pre-Operative Diagnosis: 1. Bilateral macromastia. 2. Neck pain. 3. Thoracic back pain. 4. Bilateral shoulder pain from shoulder grooving from the weight of the breasts on her bra straps. 5. Inframammary intertrigo. 6. Family history of breast cancer. 7. Recent weight loss. 8. Former smoker. 9. History of abdominoplasty. 10. Painful scar contour deformity abdominal wall. Post-Operative Diagnosis: Same. Surgery/Procedure Performed:: 1. Bilateral breast reduction mammoplasty. 2. Excision painful scar contour deformity abdominal wall. Description of Surgical Findings:: 61 year old woman presents with complaints of bilateral macromastia as well as associated painful symptomatology of neck pain, thoracic back pain, bilateral shoulder pain from shoulder grooving from the weight of her breasts on her bra straps, and inframammary intertrigo for which she uses powders for relief. She denies any trauma to her breasts. Denies any nipple discharge. She has been seeing a chiropractor for years for her neck and back pain without much relief in her painful symptomatology. She had a mammogram on 02/03/21. It showed There are scattered areas of fibroglandular density. There are no dominant masses or suspicious calcifications. No other significant abnormalities are identified. She states her grandmother had a history of breast cancer. She has lost 50 lbs over the past couple years. She is currently at a stable weight of 149 lbs. Patient was informed of the risks and complications of the procedure including alternatives to surgery. These were discussed with the patient personally. Patient voices understanding and wishes to proceed. Some of the risks and complications were included in a form from the [employer]. IV Fluids - 3250 ml. Urine Output - 350 ml. Tissue removed from the left breast - 584 grams. Tissue removed from the right breast - 502 grams. I used AmnioFix Placental Connective Tissue Graft, (I used 2 grafts, one in each breast at [facility]). Catalog Number - [id number]. Lot Number - [id number]. Expiration - December 22, 2025, (left breast). Catalog Number - [id number]. Lot Number - [id number]. Expiration - December 22, 2025, (right breast). I used Bk absorbable hemostat, (I used 2 vials, one in each breast). Reference Number - [id number]. Lot Number - [id number]. Expiration - December 18, 2025. Surgeon: Devaughn Diaz skip pitman: Zachery Leon Type of Anesthesia: General Specimen's removed: 1. Left breast tissue to Pathology. 2. Right breast tissue to Pathology. Drains: Mykel x2 (one in each breast). Estimated Blood Loss (mL): 250. Fluids Replaced: 3600 ml (IV Fluids - 3250 ml, Urine Output - 350 ml). Description of Procedure: In the preop area, the patient was placed in the sitting position and preoperative markings were made. The sternum midline was marked down to the umbilicus. The inframammary folds were marked bilaterally. The midclavicular line was then marked down to the nipple, then from the nipple to the inframammary fold. The inframammary fold was then superimposed on the midclavicular line and I made a point 1 cm below that to be the new position of the nipple-areolar complex. 7 cm lines were then drawn divergent from that point to encompass the nipple-areolar complex. The distance between the divergent lines was 9 cm. The patient was then placed in the supine position and taken to the operating room and placed under general anesthesia and her breasts were prepped and draped in usual fashion. Ioban draping was also used. SCDs were placed for DVT prophylaxis. Perioperative antibiotics were given intravenously. A Andrews catheter was also placed. I then sandor straight lines down from the lines drawn divergent around the nipple-areolar complex down to the inframammary fold. The width of the pedicle is 9 cm. I then used a 42 mm circular template for a new size of the nipple-areolar complex. The central markings were infiltrated with Xylocaine and epinephrine. The central skin was then deepithelialized. I started on the left side first and then went to the right side. I then mobilized medial and lateral breast flaps at the level of Mendez's fascia down to about 1-2 cm from the chest wall. This was met in the midline of the breast with dissection at the level of Mendez's fascia down to about 1-2 cm from the chest wall. Once the central breast mound pedicle was from the skin envelope, the reduction was then begun. Most of the tissue was removed from the superior aspect of the breast and the lateral aspect of the breast. I then sutured the leading edge of the medial and lateral breast flaps to the midline of the inframammary fold with 2-0 Vicryl suture. The vertical incision was approximated using surgical clips. The excess tissue from the medial and lateral breast flaps were excised and the horizontal incision was approximated using surgical clips. The patient was then placed in a sitting position. Using a vertical limb length of 5 cm, I sandor the new position of the new nipple-areolar complexes on both breasts. They were in good position on the central aspect of the breast mound. Good symmetry was noted between the left breast and the right breast. Good shape and contour and projection were noted and appeared clinically to be a B cup. The patient was then placed back in the supine position and the surgical clips were removed. The breast wounds were then irrigated with Irrisept 0.05% Chlorhexidine solution which was followed by saline irrigation. Hemostasis was obtained using electrocautery. The tissue removed from the left breast was 584 grams. The tissue removed from the right breast was 502 grams. The tissue that was removed from the breasts was sent to Pathology for analysis to rule out carcinoma. After hemostasis was obtained using electrocautery, I then sprayed Bk absorbable hemostat into both breast wounds. I used one vial for each side. I then placed a size 15 Mykel drain into each breast wound to be brought through the lateral aspect of the horizontal incision. I then closed the breast wounds by first approximating the leading edge of the medial and lateral breast flaps to the midline of the inframammary fold with 2-0 Vicryl suture. I then placed AmnioFix placental connective tissue graft into both wounds at the level of the Tzone to help with the healing process. I used 2 x 12 cm for each Tzone cut into 2 strips. The deep dermis and subcutaneous tissue of the vertical incision and the horizontal incisions were approximated using 3-0 Monocryl interrupted sutures. The horizontal incision was then approximated using 4-0 V-Loc unidirectional barbed running subcuticular suture. I also placed a few 4-0 Prolene vertical mattress interrupted sutures at the level of the Tzone. The vertical incision was then closed on the skin with 4-0 Prolene interrupted sutures. With a vertical limb length of 5 cm, I sandor a circular incision where the nipple-areolar complex would be brought through this keyhole incision. Incisions were made and the nipple areolar complex was brought through the keyhole incision. The nipple- areolar complex was secured to the breast skin using 3-0 Monocryl interrupted sutures for deep dermis and subcutaneous tissue. The skin was approximated us ing 4-0 Prolene simple interrupted sutures. This was then covered with Histoacryl skin tissue adhesive. I sutured the drains to the skin using 3-0 nylon suture. At the end of the procedure, the breasts were soft with no evidence of vascular compromise. No evidence of hematomas were noted. The nipples were viable. I then dressed the breasts with a Kerlix gauze and a compression dontrell wrap. I then excised the painful scar contour deformity in two areas down into the subcutaneous tissue. Hemostasis was obtained with electrocautery. The wounds were closed with 3-0 Monocryl interrupted sutures for the deep dermis and subcutaneous tissue. The skin was approximated with 3-0 V lock unidirectional barbed running subcuticular sutures followed by Histoacryl skin tissue adhesive. Both wounds measured 3 cm. Gauze dressing was applied. The patient tolerated the procedure well and will be sent to the recovery room in satisfactory condition. [facility] She will go home tomorrow once she is tolerating oral pain medication. I will remove the drains in a few days. She will keep her head elevated during the initial postoperative period. She will be maintained on a lifting restriction and keep her head elevated during the initial postoperative period. Post-discharge, she may get a compression sports bra as well. She will have the Andrews removed in the morning. She will be sent home on antibiotics and pain medicine. Sutures will be removed in 1-2 weeks. Grafts/Implants Used: AmnioFix x2, Bk. Complications None. Admit VTE Documentation VTE Present on Admission: No VTE Mechan Device Prophylaxis: SCD's VTE Pharm Prophylaxis ordered?: Yes Addendum Addendum: Surgery Charges CPT - 34272-30 ICD-10 - N62, M54.2, M54.6, M25.519, L30.4, Z80.3, R63.4, Z87.891, Z98.890 58802 N62, M54.2, M54.6, M25.519, L30.4, Z80.3, R63.4, Z87.891, Z98.890
[2021-04-15] MEDS: Docusate Sodium 100 MG Capsule PO (21:35)
[2021-04-15] MEDS: Cefazolin 1 GM/50 ML BAG IV (21:37)
[2021-04-16 02:09] VITALS: BP 108/69; PULSE 86; RESP 16; TEMP 37.2; O2SAT 98
[2021-04-16] MEDS: oxyCODONE 5 MG Tablet PO ×2 (03:41→09:15)
[2021-04-16] MEDS: Acetaminophen 500 MG Tablet 1000 MG PO ×2 (05:16→11:08)
[2021-04-16] MEDS: Cefazolin 1 GM/50 ML BAG IV (05:19)
[2021-04-16 05:58] VITALS: BP 106/76; PULSE 82; RESP 16; TEMP 37.2; O2SAT 97
[2021-04-16 06:33] LABS: Hematocrit 25.9 % (37-47); Hemoglobin 8.5 g/dL (12.0-15.0); Mean Corp Hgb Conc 32.8 g/dL (32-36); Mean Corpuscular Hgb 31.5 pg (27.0-32.0); Mean Corpuscular Volume 95.9 fL (81-99); Platelet Count 139 K/mm3 (150-450); RBC Distribution Width CV 12.4 % (11.6-14.6); RBC Distribution Width SD 43.3 fl (35.1-43.9); White Blood Count 7.1 K/mm3 (4.4-11.0)
[2021-04-16 06:59] LABS: Anion Gap 2 (5-15); BUN 14 mg/dL (7-18); BUN/Creat Ratio 16.8 RATIO (10-20); Calcium,Total 7.6 mg/dL (8.5-10.1); Chloride 110 mmol/L (98-107); Creatinine, Serum 0.83 mg/dL (0.55-1.02); EST Glomerular Filtration Rate 75 mL/min (>60); Est Glom Filt Rate - Afr Amer 90 mL/min (>60); Estimated Creatinine Clearance 55.07 ml/min; Glucose 114 mg/dL (74-106); Potassium 4.1 mmol/L (3.5-5.1); Prealbumin 15.7 mg/dL (20.0-40.0); Sodium Level 140 mmol/L (136-145)
[2021-04-16 07:15] VITALS: O2SAT 94
[2021-04-16 07:16] VITALS: O2SAT 94
[2021-04-16 08:50] VITALS: BP 91/51; PULSE 110; RESP 16; TEMP 36.7; O2SAT 95
[2021-04-16] MEDS: Enoxaparin 40 MG/0.4 ML Syringe SC (09:14)
[2021-04-16] MEDS: Docusate Sodium 100 MG Capsule PO (09:19)
[2021-04-16] MEDS: DiphenhydrAMINE 25 MG Capsule PO (12:39)
--- NOTE | 2021-04-16 13:07 | PCM.PN.SRG ---
Subjective Subjective Postop #1 Patient is resting comfortably. Able to ambulate without unsteadiness. Objective Data Objective Data Vital Signs: Vital Signs Temp Pulse Resp BP Pulse Ox 98.1 F 110 H 16 91/51 L 95 04/16/21 08:50 04/16/21 08:50 04/16/21 08:50 04/16/21 08:50 04/16/21 08:50 Oxygen Flow Rate (L/min) 2 Oxygen Delivery Method Room Air Weight: 152 lb 1.903 oz Body Mass Index (BMI) 28.7 Intake & Output: Intake and Output for Last 24 Hours 04/14/21 04/15/21 04/16/21 23:59 23:59 23:59 Intake Total 3761 / 3761 450 / 450 Output Total 1240 / 1240 1200 / 1200 Balance 2521 / 2521 -750 / -750 Drainage 170 ml yesterday, 100 ml today. Lab / Micro Data Attestation: I reviewed the patient's lab results. (With Hgb of 8.5, will start her on Iron and recheck in a week. Breasts are soft and symmetrical without clinical evidence of hematoma.) Result Diagrams: 04/16/21 05:40 04/16/21 05:40 Labs: Laboratory Results - last 24 hr 04/16/21 05:40: WBC 7.1, RBC 2.70 L, Hgb 8.5 L, Hct 25.9 L, MCV 95.9, MCH 31.5, MCHC 32.8, RDW Std Deviation 43.3, RDW Coeff of Cathy 12.4, Plt Count 139 L, MPV 11.0 04/16/21 05:40: Sodium 140, Potassium 4.1, Chloride 110 H, Carbon Dioxide 28.0, Anion Gap 2 L, BUN 14, Creatinine 0.83, Estim Creat Clear Calc 55.07, Est GFR (MDRD) Af Amer 90, Est GFR (MDRD) Non-Af 75, BUN/Creatinine Ratio 16.8, Glucose 114 H, Calcium 7.6 L, Prealbumin 15.7 L Micro: Microbiology 04/14/21 10:30 Interface Orders SARS-CoV-2 Antigen (Rapid) - Final Physical Exam Narrative General - Alert and Oriented HEENT - PERRL. EOMI. Neck - Supple and no bony tenderness. Breasts - soft and symmetrical. Incisions are dry and intact. No clinical evidence of hematoma. Good contour noted. Minor bruising noted on the skin flaps, mostly in the Tzone areas. Nipples are viable. Abdomen - Soft and nondistended. Lower anterior abdominal scars, present laterally. Incisions are dry and intact. Extremities - FROM. No axillary adenopathy. Radial pulses are palpable. Neuro - CN II-XII grossly intact. Psych - Normal mood and affect. Assessment & Plan Assessment/Plan (1) Macromastia: (2) Chronic neck pain: (3) Chronic thoracic back pain: (4) Shoulder pain: (5) Intertrigo: (6) Family history of breast cancer: (7) Excessive body weight loss: (8) Former smoker: (9) Acute postoperative anemia due to expected blood loss: (10) History of abdominoplasty: PLAN: Her breasts are soft and symmetrical. Incisions are dry and intact. No clinical evidence of hematoma. Good breast contour noted. Nipples are viable. Abdominal wall incisions are dry and intact. She is tolerating po analgesia and is steady on her feet with ambulation. Her Prealbumin was 15.7. Encourage nutritional supplementation with protein to help the healing process. Hgb was 8.5. Clinically there is no evidence of continued bleeding. Drainage has been 270 ml. Operative blood loss was 250 ml. Intraoperatively she was positive almost 3 liters. Some of the decrease was operative blood loss as well as IV fluid dilution from the surgery. Will start her on Iron supplements. She states she has some Iron at home to take. Will recheck a Hgb in a week in the office. Discharge home today. No showering until the drains are removed. Wrote scripts for Levaquin until the drains are removed. Wrote scripts for Percocet for pain (40 tabs) and for Valium for spasm (10 tabs). Wrote scripts for Phenergan for nausea (30 tabs) and for Colace for constipation (30 tabs). Continue head elevation, lifting restriction, and dontrell wrap compression. Followup office Tuesday04/20/21 to remove the drains.
--- NOTE | 2021-04-16 13:13 | PCM.DC ---
Discharge Instructions Diet Discharge Diet: No restrictions (Increase protein intake) Activity Discharge Activity: May Not Shower (until drains out) May resume sexual activity in: 1-2 weeks Lifting Restrictions: 20 lb weight lifting restriction Additional Activity Instructions:: Keep head elevated Dressing / Incision Call your doctor if your incision/area has: Continuous Slow Oozing, Sudden Increased Bleeding, Increased Pain/ Swelling, Increased Redness, Foul Smelling Discharge and Swelling at the incision site Call your doctor if you observe: Fever of 101 or Higher, Inability to urinate, Inability to have a bowel movement, Shortness of breath, Chest pain, Calf discomfort and Uncontrolled pain Suture Line Care: Avoid Pulling/Pushing Change Dressing in: as needed Cleanse incision/area with: Do not get Incision Wet (until drain out) Drain: Suction (empty drains and record output daily) Additional Dressing/Incision Instructions:: Wear compression over breasts, either surgical bra or OLGA wrap Follow Up Care Please Follow Up With: Dr. Diaz/Amanda When: Tuesday04/20/21. [phone] Test Results: Test results from this visit will be discussed in further detail at your follow-up appointment, if applicable. will recheck hemoglobin in one week Discharge Plan Admission Admit Date/Time: 04/15/21 16:21 Attending Provider: Devaughn Diaz Primary Care Provider: Red Hernandez Discharge Orders/Prescriptions Prescriptions: New levofloxacin 500 mg tablet 500 mg PO DAILY Qty: 5 RF: 0 oxycodone-acetaminophen [Percocet] 5-325 mg tablet 1 tab PO Q4H PRN (Reason: pain (scale score 7-10)) 7 Days Qty: 40 RF: 0 diazepam [Valium] 5 mg tablet 5 mg PO BID PRN (Reason: muscle spasm) 5 Days Qty: 10 RF: 0 docusate sodium [Colace] 100 mg capsule 100 mg PO DAILY 30 Days Qty: 30 RF: 0 diphenhydramine HCl [Benadryl] 25 mg capsule 25 mg PO TID PRN (Reason: itching) 10 Days Qty: 30 RF: 0 Continued trazodone 100 mg Tablet 100 mg PO QHS RF: 0 Referrals / Follow Up: Red Hernandez MD [Primary Care Provider] -
[2021-04-16 14:10] VITALS: BP 106/68; PULSE 100; RESP 16; TEMP 36.8; O2SAT 96
--- NOTE | 2021-04-16 14:25 | CASEMGMT ---
SHARIF CM in to pt room. Pt dressed and anxious to go home. Pt states she has had drains in the past and feels comfortable with them. She denies any issues/needs with going home.
== END 2021-04-16 14:20 | disposition home or self-care (01) ==
LOC: SDC 16:53 → MS3 16:53
PROVIDERS: Anesthesiology; Admitting Provider Surgery; PCP Family Medicine; Referring Provider Surgery; Visit Provider Surgery
PROC: 0H0U0ZZ Alteration of Left Breast, Open Approach (ICD-10-PCS; CPT 19318; principal; 2021-04-15 08:15)
DX: N62 Hypertrophy of breast (principal); M54.2 Cervicalgia; D62 Acute posthemorrhagic anemia; M25.511 Pain in right shoulder; M54.6 Pain in thoracic spine; G89.29 Other chronic pain; E78.5 Hyperlipidemia, unspecified; M25.512 Pain in left shoulder; Z87.891 Personal history of nicotine dependence; Z79.899 Other long term (current) drug therapy; L30.4 Erythema intertrigo; L90.5 Scar conditions and fibrosis of skin
CPT/HCPCS: 19318; 00402; 80048; 82962; 83735; 84134; 85027; 87426; 88305; 96365; 96366; 96372; 99218; 99251; C9803; J7120; G0378; G0463; J2405; Q9968

== ENCOUNTER 2021-04-20 15:48 | Outpatient (CLI) | payer OTHER, SELFPAY ==
[2021-04-20 16:05] LABS: Hematocrit 30.1 % (37-47); Hemoglobin 10.1 g/dL (12.0-15.0); Mean Corp Hgb Conc 33.6 g/dL (32-36); Mean Corpuscular Hgb 32.6 pg (27.0-32.0); Mean Corpuscular Volume 97.1 fL (81-99); Mean Platelet Vol. 10.5 fl (6.2-12.0); Platelet Count 191 K/mm3 (150-450); RBC Distribution Width CV 12.9 % (11.6-14.6); RBC Distribution Width SD 45.8 fl (35.1-43.9); White Blood Count 4.7 K/mm3 (4.4-11.0)
== END 2021-04-20 23:59 | disposition home or self-care (01) ==
LOC: PAVLAB 15:49
PROVIDERS: PCP Family Medicine; Referring Provider Surgery; Visit Provider Surgery
DX: D62 Acute posthemorrhagic anemia (principal); Z98.890 Other specified postprocedural states
CPT/HCPCS: 36415; 85027

== ENCOUNTER 2021-05-19 11:48 | Outpatient (CLI) | payer OTHER, SELFPAY ==
[2021-05-19 15:29] LABS: Absolute Lymphocyte Count 1.05 X10^3/uL (0.83-4.51); Basophil# 0.03 X10^3/uL; Basophil% 0.9 % (0-1); Eosinophil# 0.07 X10^3/uL; Hematocrit 36.2 % (37-47); Hemoglobin 11.6 g/dL (12.0-15.0); Lymphocyte # 1.05 X10^3/ul (0.83-4.51); Lymphocyte % 30.6 % (19-41); Mean Corpuscular Hgb 30.6 pg (27.0-32.0); Mean Corpuscular Volume 95.5 fL (81-99); Mean Platelet Vol. 11.2 fl (6.2-12.0); Monocyte# 0.23 X10^3/uL; Monocyte% 6.7 % (0-10); NRBC Flagged by Analyzer 0 % (0-5); Neutrophil # 2.04 X10^3/uL (2.7-7.7); Neutrophil % 59.5 % (47-70); Platelet Count 148 K/mm3 (150-450); RBC Distribution Width CV 13.1 % (11.6-14.6); RBC Distribution Width SD 46.5 fl (35.1-43.9); Red Blood Count 3.79 M/mm3 (4.2-5.4); White Blood Count 3.4 K/mm3 (4.4-11.0)
[2021-05-19 15:43] LABS: Iron 38 ug/dL (50-170)
== END 2021-05-19 23:59 | disposition home or self-care (01) ==
LOC: MTLAB 11:48
PROVIDERS: PCP Family Medicine; Referring Provider Family Medicine; Visit Provider Family Medicine
DX: D50.9 Iron deficiency anemia, unspecified (principal)
CPT/HCPCS: 36415; 83540; 85025

== ENCOUNTER 2021-05-22 10:21 | Outpatient (CLI) | payer OTHER, SELFPAY ==
--- NOTE | 2021-05-22 11:10 | MRI_ITS ---
EXAM: MR HEAD WITHOUT AND WITH INTRAVENOUS CONTRAST CLINICAL INDICATION: ATAXIA, DIZZINESS TECHNIQUE: Multiplanar and multisequence MR images of the brain were obtained without and with intravenous contrast. This report was created using [employer] report generation technology. CONTRAST: 13ml Dotarem via IV COMPARISON: None. FINDINGS: BRAIN AND EXTRA-AXIAL SPACES: Small less than 1 cm CSF density lesion inferior left lenticular nuclei likely represents a prominent perivascular space. No intra- or extra-axial hemorrhage. No evidence of acute infarct. No intracranial mass or mass effect. There is preservation of the sandoval/white matter interface. Posterior fossa structures are unremarkable. Basal cisterns are patent. SELLA: Unremarkable. Normal sella turcica, pituitary gland, infundibular stalk, optic chiasm and hypothalamus. AUDITORY SYSTEM: Unremarkable. The internal auditory canals are patent. BONES/JOINTS: Unremarkable. No discrete lytic or blastic abnormalities. SINUSES: Unremarkable as visualized. Clear. MASTOID AIR CELLS: Unremarkable as visualized. Clear. ORBITS: Unremarkable as visualized. Both globes, extraocular muscles, optic nerves and retrobulbar fat appear unremarkable. VASCULATURE: Unremarkable as visualized. Normal flow voids in the major intracranial circulation. MRI/Brain W/WO Contrast IMPRESSION: No acute findings in the head/brain. No masses. Electronically Signed: Shin Botello MD at 23:39 EDT ,
== END 2021-05-22 23:59 | disposition home or self-care (01) ==
LOC: MRI 10:21
PROVIDERS: PCP Family Medicine; Referring Provider Otolaryngology; Visit Provider Otolaryngology
DX: R27.0 Ataxia, unspecified (principal); R42 Dizziness and giddiness
CPT/HCPCS: 70553; A9575

== ENCOUNTER 2022-01-25 19:50 | Inpatient (IN) | payer OTHER, SELFPAY ==
[2022-01-25] VITALS (9 sets, daily range): BP systolic 121–142; BP diastolic 61–106; PULSE 95–141; RESP 16–22; TEMP 36.7–37; O2SAT 96–99; BMI 32.5
--- NOTE | 2022-01-25 20:20 | EKG12_ITS ---
Test Reason : DYSRHYTHMIA Blood Pressure : / mmHG Vent. Rate : 120 BPM Atrial Rate : 120 BPM P-R Int : 142 ms QRS Dur : 060 ms QT Int : 308 ms P-R-T Axes : 058 002 084 degrees QTc Int : 435 ms Sinus tachycardia with frequent Premature ventricular complexes Low voltage QRS Borderline ECG Confirmed by ARCADIO BERGMAN, MICHELE ([id number]), writer editor HAWA CROUCH ([id number]) on 01/27/2022 8:52:50 AM Referred By: KARIN Confirmed By:MICHELE ERVIN MD
[2022-01-25 20:29] LABS: Color, Urine Yellow (Yellow); Glucose, Dipstick Normal (Normal); Ketone-Dipstick Negative (Negative); Leukocyte Esterase-Dipstick Negative /ul (Negative); Nitrite-Dipstick Negative (Negative); Occult Blood-Urine Negative /ul (Negative); Protein-Dipstick Negative (Negative); Specific Gravity, Urine 1.005 (1.002-1.030); Urine Bilirubin Dipstick Negative (Negative); Urine Clarity Clear (Clear); Urine Urobilinogen Normal (Normal)
[2022-01-25 20:30] LABS: Bacteria 0 SEEN /hpf (None Seen); Mucous, Urine 0 SEEN /hpf (<or=2+); Red Blood Cells-Urine 0 SEEN /hpf (0-5); Squamous Epithelial Cells - UA 0 SEEN /hpf (5-10); White Blood Cells 0 SEEN /hpf (0-5)
--- NOTE | 2022-01-25 20:54 | RAD_ITS ---
EXAM: XR CHEST, 1 VIEW CLINICAL INDICATION: chest pain TECHNIQUE: Frontal view of the chest. This report was created using [employer] report generation technology. COMPARISON: None. FINDINGS: LUNGS AND PLEURAL SPACES: Unremarkable. No consolidation or edema. No pneumothorax. No effusion. HEART: Unremarkable. Cardiac silhouette not enlarged. MEDIASTINUM: Central airways and mediastinal contour are unremarkable. BONES/JOINTS: Degenerative changes of the spine and acromioclavicular joints. SOFT TISSUES: Unremarkable. RAD/Chest 1 View (Portable) IMPRESSION: No acute disease. Electronically Signed: Gualberto Wallace MD at 21:24 EST ,
[2022-01-25 21:03] LABS: Absolute Lymphocyte Count 0.24 X10^3/uL (0.83-4.51); Absolute Neutrophil Count 3.7 X10^3/uL (2.0-7.7); Basophil# 0.01 X10^3/uL; Basophil% 0.2 % (0-1); Eosinophil# 0.04 X10^3/uL; Hematocrit 41.9 % (37-47); Hemoglobin 13.6 g/dL (12.0-15.0); Lymphocyte # 0.24 X10^3/ul (0.83-4.51); Lymphocyte % 5.8 % (19-41); Mean Corp Hgb Conc 32.5 g/dL (32-36); Mean Corpuscular Hgb 30.8 pg (27.0-32.0); Mean Corpuscular Volume 94.8 fL (81-99); Mean Platelet Vol. 10.1 fl (6.2-12.0); Monocyte# 0.14 X10^3/uL; Monocyte% 3.4 % (0-10); NRBC Flagged by Analyzer 0 % (0-5); Neutrophil # 3.67 X10^3/uL (2.7-7.7); Neutrophil % 89.1 % (47-70); POSITIVE DIFFERENTIAL YES; Platelet Count 141 K/mm3 (150-450); RBC Distribution Width CV 12.4 % (11.6-14.6); RBC Distribution Width SD 43.6 fl (35.1-43.9); Red Blood Count 4.42 M/mm3 (4.2-5.4); White Blood Count 4.1 K/mm3 (4.4-11.0)
--- NOTE | 2022-01-25 21:16 | EX.ED.DYSGE1 ---
HPI History of Present Illness Chief Complaint: Palpitations Narrative Narrative: 62-year-old female presenting with palpitations and shortness of breath. She states has had it for months. She states she was initially seen by her primary care physician who did an EKG and said it was normal. She has not made any follow-up since then and reports that is progressively worse. She states she feels a sensation of palpitations especially when she walks. She can only go 6 feet. She does not have any lower extremity edema. She is never cough. She sleeps flat at night. No fevers, chills. No nausea or vomiting. She does report a headache tonight which is mild. [facility] Medical History Acute postoperative anemia due to expected blood loss Alcohol use Anemia Chronic neck pain Chronic thoracic back pain Diastasis of rectus abdominis Drug-induced pruritus Excessive and redundant skin and subcutaneous tissue Excessive body weight loss Fatigue Former smoker Frequent headaches Hemorrhoids HLD (hyperlipidemia) Hydronephrosis with urinary obstruction due to renal calculus Intertrigo Left ureteral stone Macromastia Migraine headache Nausea Nephrolithiasis Restless legs Shoulder pain Wears glasses Home Medications trazodone 100 mg tablet 100 mg PO QHS 07/15/20 [History Last Taken Unknown] Allergy/AdvReac Type Severity Reaction Status Date / Time clindamycin [From Cleocin] Allergy Mild itching Verified 01/25/22 20:44 amoxicillin Allergy Rash Verified 01/25/22 20:44 hydrocodone [From Vicodin] Allergy Rash Verified 01/25/22 20:44 hydromorphone [From Dilaudid] AdvReac Other Verified 01/25/22 20:44 sulfamethoxazole AdvReac Nausea Verified 01/25/22 20:44 [From Bactrim] trimethoprim [From Bactrim] AdvReac Nausea Verified 01/25/22 20:44 Family History Daughter Cancer Thyroid cancer Asthma Father Cancer bone Mother Hypertension Thyroid disorder Dementia Other Family history of breast cancer Surgical History History of abdominoplasty History of ear surgery Hx of section Hx of cystoscopy (~11/17/16) Hx of tubal ligation Status post bilateral breast reduction Social History Smoking Status: Former smoker second hand exposure: No alcohol intake: current alcohol intake frequency: a few times a month substance use type: does not use caffeine: No what type of physical activity do you participate in: none frequency: does not exercise seatbelt use: always additional social history: Does Not take Aspirin Does take Ibuprofen as needed ROS ROS ED Constitutional Constitutional ED: Denies chills or fever(s) Eyes Eyes: Denies change in vision ENT ENT ED: Denies rhinorrhea or sore throat Cardiovascular Cardiovascular: Reports palpitations and racing heartbeat Respiratory/Chest Respiratory/Chest: Reports dyspnea and dyspnea on exertion Gastrointestinal Gastrointestinal: Denies abdominal pain Genitourinary Genitourinary ED: Denies dysuria or hematuria Musculoskeletal Musculoskeletal: Denies back pain or neck pain Integumentary Denies abscess or Abrasions Neurologic Neurologic: Reports headache(s); Denies paresthesias or weakness Psychiatric Psychiatric: Denies anxiety or depression EXAM Physical Exam Const Vital Signs: 01/25/22 19:53 01/25/22 19:59 01/25/22 20:41 Temperature 98.6 F 98.6 F Temperature Source Temporal Temporal Pulse Rate 141 H 141 H Pulse Rate [Lying] Pulse Rate [Sitting (for 1 minute prior to obtaining)] Pulse Rate [Standing (for 1 minute prior to obtaining)] Respiratory Rate 18 18 Respiratory Effort Short of Breath Respiratory Pattern Tachypnea Blood Pressure 135/83 H 135/83 H Blood Pressure [Lying] Blood Pressure [Sitting (for 1 minute prior to obtaining)] Blood Pressure [Standing (for 1 minute prior to obtaining)] Blood Pressure Mean 100 100 Blood Pressure Mean [Lying] Blood Pressure Mean [Sitting (for 1 minute prior to obtaining)] Blood Pressure Mean [Standing (for 1 minute prior to obtaining)] Pulse Ox 96 96 Oxygen Delivery Method Room Air Room Air 01/25/22 20:56 01/25/22 20:56 01/25/22 21:00 Temperature Temperature Source Pulse Rate 113 H 112 H Pulse Rate [Lying] Pulse Rate [Sitting (for 1 minute prior to obtaining)] Pulse Rate [Standing (for 1 minute prior to obtaining)] Respiratory Rate 22 H 16 Respiratory Effort Respiratory Pattern Blood Pressure 133/61 H 126/74 H Blood Pressure [Lying] Blood Pressure [Sitting (for 1 minute prior to obtaining)] Blood Pressure [Standing (for 1 minute prior to obtaining)] Blood Pressure Mean 85 91 Blood Pressure Mean [Lying] Blood Pressure Mean [Sitting (for 1 minute prior to obtaining)] Blood Pressure Mean [Standing (for 1 minute prior to obtaining)] Pulse Ox 98 99 Oxygen Delivery Method Room Air Room Air Room Air 01/25/22 22:00 01/25/22 22:33 Temperature Temperature Source Pulse Rate 103 H Pulse Rate [Lying] 95 Pulse Rate [Sitting (for 1 minute prior to obtaining)] 130 H Pulse Rate [Standing (for 1 minute prior to obtaining)] 126 H Respiratory Rate 21 H Respiratory Effort Respiratory Pattern Blood Pressure 142/106 H Blood Pressure [Lying] 132/76 H Blood Pressure [Sitting (for 1 minute prior to obtaining)] 138/92 H Blood Pressure [Standing (for 1 minute prior to obtaining)] 138/80 H Blood Pressure Mean 118 Blood Pressure Mean [Lying] 94 Blood Pressure Mean [Sitting (for 1 minute prior to obtaining)] 107 Blood Pressure Mean [Standing (for 1 minute prior to obtaining)] 99 Pulse Ox 96 Oxygen Delivery Method Room Air MDM MDM MDM Narrative Medical decision making narrative: Patient presenting with palpitations and shortness of breath which is ongoing for months. No history of COPD or asthma. She is a former smoker from many years ago. Vital signs are stable and she is afebrile. I obtained an EKG which on my interpretation shows a sinus rhythm with a ventricular 120 bpm with frequent PVCs. There are no ST elevations or depressions. Chest x-ray my interpretation shows no acute cardiopulmonary process. Radiology services agrees. CBC shows leukopenia however this is chronic for the patient. Hemoglobin hematocrit are stable. Platelets are normal. Urinalysis negative for infection. High-sensitivity troponin is 5. D-dimer was elevated at 0.68. Patient had CTA of the chest which was negative for dissection or PE. There is no other infiltrate noted on CTA. I checked orthostatic vital signs and the patient's blood pressure stayed normal however her heart rate is 130 and she is off balance and having to grab the wall to stand. On the monitor while doing orthostatics to see if she sits forward or stands she goes into frequent PVCs and bigeminy. She was assisted to the restroom and appears to be very unsteady. Given this I feel the patient will need to be admitted. Patient amenable to this. I discussed this with the hospitalist. Impression: 1. Palpitations 2. Lightheadedness 3. PVCs 4. Bigeminy Lab Data Labs: Laboratory Results - last 24 hr 01/25/22 01/25/22 01/25/22 20:20 20:51 20:51 WBC 4.1 L RBC 4.42 Hgb 13.6 Hct 41.9 MCV 94.8 MCH 30.8 MCHC 32.5 RDW Std Deviation 43.6 RDW Coeff of Cathy 12.4 Plt Count 141 L MPV 10.1 Immature Gran % (Auto) 0.500 Neut % (Auto) 89.1 H Lymph % (Auto) 5.8 L [place] % (Auto) 3.4 Eos % (Auto) 1.0 Baso % (Auto) 0.2 Absolute Neuts (auto) 3.7 Absolute Lymphs (auto) 0.24 L Nucleated RBC % 0 Differential Comment SEE COMMENT Diff Path Review May foll Platelet Estimate SLT DEC RBC Morphology N CHROM Anisocytosis RARE Macrocytosis RARE D-Dimer Quant (PE/DVT) 0.68 H* Sodium Potassium Chloride Carbon Dioxide Anion Gap BUN Creatinine Estim Creat Clear Calc Est GFR (MDRD) Af Amer Est GFR (MDRD) Non-Af BUN/Creatinine Ratio Glucose Calcium Troponin I High Sens Urine Color Yellow Urine Clarity Clear Urine pH 7.0 Ur Specific [place] 1.005 Urine Protein Negative Urine Glucose (UA) Normal Urine Ketones Negative Urine Occult Blood Negative Urine Nitrite Negative Urine Bilirubin Negative Urine Urobilinogen Normal Ur Leukocyte Esterase Negative Urine RBC 0 SEEN Urine WBC 0 SEEN Ur Squamous Epith Cells 0 SEEN Urine Bacteria 0 SEEN Urine Mucus 0 SEEN 01/25/22 20:51 WBC RBC Hgb Hct MCV MCH MCHC RDW Std Deviation RDW Coeff of Cathy Plt Count MPV Immature Gran % (Auto) Neut % (Auto) Lymph % (Auto) [place] % (Auto) Eos % (Auto) Baso % (Auto) Absolute Neuts (auto) Absolute Lymphs (auto) Nucleated RBC % Differential Comment Diff Path Review Platelet Estimate RBC Morphology Anisocytosis Macrocytosis D-Dimer Quant (PE/DVT) Sodium 138 Potassium 4.0 Chloride 109 H Carbon Dioxide 25.0 Anion Gap 4 L BUN 20 H Creatinine 0.84 Estim Creat Clear Calc 53.74 Est GFR (MDRD) Af Amer 89 Est GFR (MDRD) Non-Af 74 BUN/Creatinine Ratio 23.9 H Glucose 114 H Calcium 9.0 Troponin I High Sens 5 Urine Color Urine Clarity Urine pH Ur Specific [place] Urine Protein Urine Glucose (UA) Urine Ketones Urine Occult Blood Urine Nitrite Urine Bilirubin Urine Urobilinogen Ur Leukocyte Esterase Urine RBC Urine WBC Ur Squamous Epith Cells Urine Bacteria Urine Mucus Radiography Diagnostic Testing: Clinical Impression(s) from Imaging Studies Chest X-Ray 01/25/22 20:54 IMPRESSION: No acute disease. Electronically Signed: Gualberto Wallace MD at 21:24 EST , Chest CTA 01/25/22 21:22 IMPRESSION: No PE, pneumonia or other acute disease. Electronically Signed: Gualberto Wallace MD at 22:11 EST , Discharge Plan Triage Chief Complaint: Palpitations ED Provider: Behzad Green Dx/Rx/DC Orders Prescriptions: No Action trazodone 100 mg Tablet 100 mg PO QHS Primary Care Provider: Red Hernandez Referrals: Red Hernandez MD [Primary Care Provider] -
[2022-01-25 21:21] LABS: D-Dimer Quantitative (DVT/PE) 0.68 FEU/ug/m (0.27-0.49)
--- NOTE | 2022-01-25 21:22 | CT_ITS ---
EXAM: CT ANGIOGRAPHY CHEST WITHOUT AND WITH INTRAVENOUS CONTRAST CLINICAL INDICATION: dyspnea TECHNIQUE: Helically acquired angiography images were obtained of the chest without and with intravenous contrast. CTDIvol = ( 11.17 ) mGy, DLP = ( 460.46 ) mGycm This CT exam was performed using one or more of the following dose reduction techniques: automated exposure control, adjustment of the mA and/or kV according to patient size, and/or use of iterative reconstruction technique. This report was created using [employer] report generation technology. MIP reconstructed images were created and reviewed. CONTRAST: IV 100mL [id number]-370 COMPARISON: None. FINDINGS: PULMONARY ARTERIES: Unremarkable. Normal in caliber. No evidence of pulmonary embolism. AORTA: Unremarkable. Normal in caliber. No evidence of dissection. GREAT VESSELS OF AORTIC ARCH: Unremarkable. Normal in caliber. No evidence of dissection. LUNGS AND PLEURAL SPACES: Unremarkable. No mass. No consolidation or edema. No pleural effusion or thickening. No pneumothorax. HEART: Unremarkable. Heart size is normal. No pericardial effusion. No signs of right heart strain, ratio of right ventricle to left ventricle measures less than 1. MEDIASTINUM: Unremarkable. No mediastinal or hilar adenopathy. Esophagus is unremarkable. No hiatal hernia. THYROID: Unremarkable. No thyroid lesions. BONES/JOINTS: Mild degenerative changes of the spine at multiple levels. No suspicious lytic or blastic abnormality. CT/CTA Chest W/WO Contrast IMPRESSION: No PE, pneumonia or other acute disease. Electronically Signed: Gualberto Wallace MD at 22:11 [facility] ,
[2022-01-25 21:27] LABS: Anion Gap 4 (5-15); BUN 20 mg/dL (7-18); BUN/Creat Ratio 23.9 RATIO (10-20); Chloride 109 mmol/L (98-107); Creatinine, Serum 0.84 mg/dL (0.55-1.02); EST Glomerular Filtration Rate 74 mL/min (>60); Est Glom Filt Rate - Afr Amer 89 mL/min (>60); Estimated Creatinine Clearance 53.74 ml/min; Glucose 114 mg/dL (74-106); Sodium Level 138 mmol/L (136-145); Troponin-I HS (w/2H Reflex) 5 pg/mL (3.0-54.0)
[2022-01-25 21:38] LABS: Differential Indicated SCAN CRITERIA MET
[2022-01-25 21:41] LABS: Anisocytosis RARE; Macrocytosis RARE; Platelet Estimate SLT DEC (ADEQ); Red Cell Morphology N CHROM NORMAL (NORM C&C)
--- NOTE | 2022-01-25 22:42 | ED.RN ---
Pt O2 with ambulation 98% to 96%. Pt HR increased from 95 to 135.
[2022-01-25] MEDS: 0.9% Normal Saline 1,000 ML 999 ML IV (22:56)
[2022-01-25 23:01] LABS: Reflex Troponin-HS? (from REC) Y
--- NOTE | 2022-01-25 23:04 | PCM.HP.STD ---
HPI - General General Date of Admission: 01/25/22 Date of Service: 01/25/22 Chief Complaint: Palpitations HPI Narrative MARK ANDERSON, is a 62 F who presents to the emergency room with chief complaint of heart palpitations. Onset of symptoms began approximately 2 months ago however,today the patient became symptomatic feeling lightheaded and she describes both legs as feeling heavy and having difficulty walking. She feels a heaviness on her mid chest that is nonradiating. The patient admits she does not like to seek medical attention and has avoided getting medical care to this point. She denies feeling shortness of breath and denies any fevers or chills recently. Laboratory studies are unremarkable however, she did have slightly elevated D-dimer and a CT angiogram of chest was obtained and was negative for pulmonary embolism. She remains tachycardic and symptomatic at the time of my evaluation. EKG reveals frequent unifocal PVCs with an underlying rhythm of sinus tachycardia. She will be admitted for further management of her tachycardia in the PCU. [facility] Medical History Acute postoperative anemia due to expected blood loss Alcohol use Anemia Chronic neck pain Chronic thoracic back pain Diastasis of rectus abdominis Drug-induced pruritus Excessive and redundant skin and subcutaneous tissue Excessive body weight loss Fatigue Former smoker Frequent headaches Hemorrhoids HLD (hyperlipidemia) Hydronephrosis with urinary obstruction due to renal calculus Intertrigo Left ureteral stone Macromastia Migraine headache Nausea Nephrolithiasis Restless legs Shoulder pain Wears glasses Home Medications trazodone 100 mg tablet 100 mg PO QHS 07/15/20 [History Last Taken Unknown] Allergy/AdvReac Type Severity Reaction Status Date / Time clindamycin [From Cleocin] Allergy Mild itching Verified 01/25/22 20:44 amoxicillin Allergy Rash Verified 01/25/22 20:44 hydrocodone [From Vicodin] Allergy Rash Verified 01/25/22 20:44 hydromorphone [From Dilaudid] AdvReac Other Verified 01/25/22 20:44 sulfamethoxazole AdvReac Nausea Verified 01/25/22 20:44 [From Bactrim] trimethoprim [From Bactrim] AdvReac Nausea Verified 01/25/22 20:44 Family History (Reviewed 06/18/21 @ 12:00 by Amanda Hays FAMILY PRACTICE MEDICAL DOCTOR, FAMILY PRACTICE MEDICAL DOCTOR-C) Daughter Cancer Thyroid cancer Asthma Father Cancer bone Mother Hypertension Thyroid disorder Dementia Other Family history of breast cancer Surgical History History of abdominoplasty History of ear surgery Hx of section Hx of cystoscopy (~11/17/16) Hx of tubal ligation Status post bilateral breast reduction Social History Smoking Status: Former smoker second hand exposure: No alcohol intake: current alcohol intake frequency: a few times a month substance use type: does not use caffeine: No what type of physical activity do you participate in: none frequency: does not exercise seatbelt use: always additional social history: Does Not take Aspirin Does take Ibuprofen as needed ROS Constitutional Constitutional: Denies chills or fever(s) Eyes Eyes: Denies change in vision ENT HEENT: Denies abnormal hearing Cardiovascular Cardiovascular: Reports chest pain and palpitations Respiratory/Chest Respiratory/Chest: Denies cough or shortness of breath at rest Gastrointestinal Gastrointestinal: Denies abdominal pain Genitourinary Genitourinary: Denies dysuria Musculoskeletal Musculoskeletal: Denies back pain Integumentary Integumentary: Denies dry skin Neurologic Neurologic: Denies abnormal speech or confusion Psychiatric Psychiatric: Reports anxiety Vital Signs Vital Signs Vital Signs: 01/25/22 19:53 01/25/22 19:59 01/25/22 20:41 Temperature 98.6 F 98.6 F Temperature Source Temporal Temporal Pulse Rate 141 H 141 H Pulse Rate [Lying] Pulse Rate [Sitting (for 1 minute prior to obtaining)] Pulse Rate [Standing (for 1 minute prior to obtaining)] Respiratory Rate 18 18 Respiratory Effort Short of Breath Respiratory Pattern Tachypnea Blood Pressure 135/83 H 135/83 H Blood Pressure [Lying] Blood Pressure [Sitting (for 1 minute prior to obtaining)] Blood Pressure [Standing (for 1 minute prior to obtaining)] Blood Pressure Mean 100 100 Blood Pressure Mean [Lying] Blood Pressure Mean [Sitting (for 1 minute prior to obtaining)] Blood Pressure Mean [Standing (for 1 minute prior to obtaining)] Pulse Ox 96 96 Oxygen Delivery Method Room Air Room Air 01/25/22 20:56 01/25/22 20:56 01/25/22 21:00 Temperature Temperature Source Pulse Rate 113 H 112 H Pulse Rate [Lying] Pulse Rate [Sitting (for 1 minute prior to obtaining)] Pulse Rate [Standing (for 1 minute prior to obtaining)] Respiratory Rate 22 H 16 Respiratory Effort Respiratory Pattern Blood Pressure 133/61 H 126/74 H Blood Pressure [Lying] Blood Pressure [Sitting (for 1 minute prior to obtaining)] Blood Pressure [Standing (for 1 minute prior to obtaining)] Blood Pressure Mean 85 91 Blood Pressure Mean [Lying] Blood Pressure Mean [Sitting (for 1 minute prior to obtaining)] Blood Pressure Mean [Standing (for 1 minute prior to obtaining)] Pulse Ox 98 99 Oxygen Delivery Method Room Air Room Air Room Air 01/25/22 22:00 01/25/22 22:33 Temperature Temperature Source Pulse Rate 103 H Pulse Rate [Lying] 95 Pulse Rate [Sitting (for 1 minute prior to obtaining)] 130 H Pulse Rate [Standing (for 1 minute prior to obtaining)] 126 H Respiratory Rate 21 H Respiratory Effort Respiratory Pattern Blood Pressure 142/106 H Blood Pressure [Lying] 132/76 H Blood Pressure [Sitting (for 1 minute prior to obtaining)] 138/92 H Blood Pressure [Standing (for 1 minute prior to obtaining)] 138/80 H Blood Pressure Mean 118 Blood Pressure Mean [Lying] 94 Blood Pressure Mean [Sitting (for 1 minute prior to obtaining)] 107 Blood Pressure Mean [Standing (for 1 minute prior to obtaining)] 99 Pulse Ox 96 Oxygen Delivery Method Room Air Weight Weight: 172 lb 6.424 oz Body Mass Index (BMI) 32.5 Results Lab / Micro Data Result Diagrams: 01/25/22 20:51 01/25/22 20:51 Labs: Laboratory Results - last 24 hr 01/25/22 20:20: Urine Color Yellow, Urine Clarity Clear, Urine pH 7.0, Ur Specific [place] 1.005, Urine Protein Negative, Urine Glucose (UA) Normal, Urine Ketones Negative, Urine Occult Blood Negative, Urine Nitrite Negative, Urine Bilirubin Negative, Urine Urobilinogen Normal, Ur Leukocyte Esterase Negative, Urine RBC 0 SEEN, Urine WBC 0 SEEN, Ur Squamous Epith Cells 0 SEEN, Urine Bacteria 0 SEEN, Urine Mucus 0 SEEN 01/25/22 20:51: WBC 4.1 L, RBC 4.42, Hgb 13.6, Hct 41.9, MCV 94.8, MCH 30.8, MCHC 32.5, RDW Std Deviation 43.6, RDW Coeff of Cathy 12.4, Plt Count 141 L, MPV 10.1, Immature Gran % (Auto) 0.500, Neut % (Auto) 89.1 H, Lymph % (Auto) 5.8 L, [place] % (Auto) 3.4, Eos % (Auto) 1.0, Baso % (Auto) 0.2, Absolute Neuts (auto) 3.7, Absolute Lymphs (auto) 0.24 L, Nucleated RBC % 0, Differential Comment SEE COMMENT, Diff Path Review May foll, Platelet Estimate SLT DEC, RBC Morphology N CHROM, Anisocytosis RARE, Macrocytosis RARE 01/25/22 20:51: D-Dimer Quant (PE/DVT) 0.68 H* 01/25/22 20:51: Sodium 138, Potassium 4.0, Chloride 109 H, Carbon Dioxide 25.0, Anion Gap 4 L, BUN 20 H, Creatinine 0.84, Estim Creat Clear Calc 53.74, Est GFR (MDRD) Af Amer 89, Est GFR (MDRD) Non-Af 74, BUN/Creatinine Ratio 23.9 H, Glucose 114 H, Calcium 9.0, Troponin I High Sens 5 Radiology Impression Chest X-Ray 01/25/22 20:54 IMPRESSION: No acute disease. Electronically Signed: Gualberto Wallace MD at 21:24 EST , Chest CTA 01/25/22 21:22 IMPRESSION: No PE, pneumonia or other acute disease. Electronically Signed: Gualberto Wallace MD at 22:11 EST , Assessment & Plan Assessment/Plan (1) Former smoker: (2) HLD (hyperlipidemia): (3) Sinus tachycardia by electrocardiogram: (4) Bigeminy: PLAN: Plan 1 palpitations?underlying rhythm sinus tachycardia with frequent PVCs and at times bigeminy?patient will be admitted to the progressive care unit, will start metoprolol 50 mg p.o. twice daily, order echocardiogram for a.m., cycle cardiac enzymes due to chest pain and add as needed nitroglycerin and supportive oxygen per routine protocol. We will consult cardiology regarding her irregular cardiac rhythm that is symptomatic at this time. 2. Hyperlipidemia?continue statin medication 3. DVT prophylaxis?low molecular weight heparin Charges/Coding Visit Charges Inpatient E&M: 98260 Init Hosp L3
[2022-01-25 23:46] LABS: Troponin-I HS 5 pg/mL (3.0-54.0)
--- NOTE | 2022-01-25 23:59 | ECHOD_ITS ---
Reason For Study: Arrhythmia Procedure This was a 2D Doppler, Color Flow transthoracic echocardiogram. Exam performed portable in patient room. Left Ventricle Normal LV size. Left ventricular systolic function is normal. The estimated ejection fraction is 55 %. No regional wall motion abnormalities noted. Right Ventricle Normal RV size. Normal systolic function. Atria Normal left atrium. Normal right atrium. Mitral Valve Normal mitral valve. Trivial eccentric mitral valve insufficiency. Tricuspid Valve Normal tricuspid valve. Mild (1+) tricuspid valve insufficiency. Pulmonary artery systolic pressure is 21 mmHg. Aortic Valve Trisinus/trileaflet aortic valve. Pulmonic Valve Normal pulmonic valve. Great Vessels Normal aortic root. The pulmonary artery is normal size. Normal inferior vena cava. Pericardium/Pleural No pericardial effusion. MMode/2D Measurements & Calculations LVIDd: 3.7 cm IVSd: 1.2 cm Ao root diam: 3.2 cm LVIDs: 2.5 cm LVPWd: 1.1 cm RVDd: 3.2 cm FS: 33.5 % LAV(MOD-bp): 36.0 ml LVAd ap4: 20.7 cm2 LVAd ap2: 25.7 cm2 LAV(MOD-bp) Indexed: 20.6 ml/m2 LVLd ap4: 7.1 cm LVLd ap2: 7.5 cm LAV(MOD-sp2): 43.4 ml EDV(MOD-sp4): 51.6 ml EDV(MOD-sp2): 73.5 ml LAV(MOD-sp4): 27.1 ml EDV(sp4-el): 51.3 ml EDV(sp2-el): 74.1 ml LVAs ap4: 12.0 cm2 LVAs ap2: 13.6 cm2 LVLs ap4: 5.9 cm LVLs ap2: 6.2 cm ESV(MOD-sp4): 21.3 ml ESV(MOD-sp2): 25.8 ml ESV(sp4-el): 20.7 ml ESV(sp2-el): 25.4 ml EF(MOD-sp4): 58.7 % EF(MOD-sp2): 65.0 % EF(sp4-el): 59.6 % SV(MOD-sp4): 30.3 ml SV(MOD-sp2): 47.7 ml SV(sp4-el): 30.6 ml LA dimension(2D): 2.8 cm LA A4 area: 13.3 cm2 RA A4 area: 14.7 cm2 Time Measurements MV dec time: 0.17 sec Doppler Measurements & Calculations MV E max tian: 76.1 cm/sec Lat Peak E' Tian: 13.3 cm/sec Med Peak E' Tian: 11.3 cm/sec MV A max tian: 70.5 cm/sec E/E' lat: 5.7 E/E' med: 6.7 MV E/A: 1.1 MV dec slope: 450.9 cm/sec2 Ao V2 max: 135.7 cm/sec LV V1 max: 99.9 cm/sec Ao max P.4 mmHg LV V1 max P.0 mmHg Ao V2 mean: 99.5 cm/sec LV V1 mean P.5 mmHg Ao mean P.4 mmHg LV V1 mean: 75.5 cm/sec Ao V2 VTI: 30.5 cm LV V1 VTI: 23.3 cm AV (velocity ratio): 0.76 PA V2 max: 65.3 cm/sec TR max tian: 211.3 cm/sec TR max P.9 mmHg ECHO/Echo Complete Interpretation Summary Normal LV size. Left ventricular systolic function is normal. The estimated ejection fraction is 55 %. Trivial eccentric mitral valve insufficiency. Pulmonary artery systolic pressure is 21 mmHg. Ordering Physician: Cristi Srivastava Referring Physician: Dylan Hernandez M.D. Performed By: Bella Hudson RDCS
[2022-01-26] VITALS (13 sets, daily range): BP systolic 90–121; BP diastolic 51–74; PULSE 69–112; RESP 18–20; TEMP 36.3–36.9; O2SAT 95–97; BMI 31.7
[2022-01-26] MEDS: 0.9% Normal Saline 1,000 ML 75 ML IV ×2 (00:26→10:47)
[2022-01-26] MEDS: 0.9% Saline Lock 10 ML Syringe IV ×2 (00:29→22:51)
[2022-01-26] MEDS: Acetaminophen 325 MG Tablet 650 MG PO ×2 (01:17→08:20)
[2022-01-26] MEDS: Metoprolol Tartrate 50 MG Tablet PO ×2 (01:17→22:42)
[2022-01-26] MEDS: traZODone 100 MG Tablet PO (01:18)
[2022-01-26 03:15] LABS: Absolute Lymphocyte Count 0.41 X10^3/uL (0.83-4.51); Absolute Neutrophil Count 2.7 X10^3/uL (2.0-7.7); Basophil# 0.01 X10^3/uL; Basophil% 0.3 % (0-1); Eosinophil# 0.02 X10^3/uL; Eosinophils% 0.6 % (0-5); Hematocrit 38.5 % (37-47); Hemoglobin 12.5 g/dL (12.0-15.0); Lymphocyte # 0.41 X10^3/ul (0.83-4.51); Lymphocyte % 12.5 % (19-41); Mean Corp Hgb Conc 32.5 g/dL (32-36); Mean Corpuscular Hgb 31.1 pg (27.0-32.0); Mean Corpuscular Volume 95.8 fL (81-99); Mean Platelet Vol. 10.1 fl (6.2-12.0); Monocyte# 0.14 X10^3/uL; Monocyte% 4.3 % (0-10); NRBC Flagged by Analyzer 0 % (0-5); Neutrophil # 2.68 X10^3/uL (2.7-7.7); POSITIVE DIFFERENTIAL YES; Platelet Count 129 K/mm3 (150-450); RBC Distribution Width CV 12.4 % (11.6-14.6); RBC Distribution Width SD 44.7 fl (35.1-43.9); Red Blood Count 4.02 M/mm3 (4.2-5.4); White Blood Count 3.3 K/mm3 (4.4-11.0)
[2022-01-26 03:32] LABS: Anion Gap 4 (5-15); BUN 14 mg/dL (7-18); BUN/Creat Ratio 18.3 RATIO (10-20); Calcium,Total 7.9 mg/dL (8.5-10.1); Chloride 113 mmol/L (98-107); Creatinine, Serum 0.77 mg/dL (0.55-1.02); EST Glomerular Filtration Rate 82 mL/min (>60); Est Glom Filt Rate - Afr Amer 99 mL/min (>60); Estimated Creatinine Clearance 58.63 ml/min; Glucose 109 mg/dL (74-106); Potassium 3.4 mmol/L (3.5-5.1); Sodium Level 142 mmol/L (136-145)
[2022-01-26 03:34] LABS: Differential Indicated SCAN CRITERIA MET
[2022-01-26 03:37] LABS: Troponin-I HS 5 pg/mL (3.0-54.0)
[2022-01-26 04:08] LABS: Differential Comment SCANNED
--- NOTE | 2022-01-26 06:48 | PCM.CONS.C ---
Assessment & Plan Assessment/Plan (1) Sinus tachycardia by electrocardiogram: PLAN: Patient appears to have symptomatic sinus tachycardia by EKG. I would recommend that we obtain a TSH and also correct her potassium as this may be causing her premature ventricular complexes. Magnesium level should also be corrected. Will like to obtain an echocardiogram to assess ventricular function and depending on the findings of the above further recommendations will be made. Thank you for allowing me to participate in the care of your patient. Please don't hesitate to call if any issues arise. HPI Consult Data Date of Consult: 01/26/22 HPI Narrative HPI Narrative: MARK ANDERSON, is a 62 F who presents to the emergency room with chief complaint of heart palpitations.? She started complaining of heaviness in her mid chest that was nonradiating and this is what brought her to the emergency room. She has been having these palpitations and yesterday became symptomatic feeling like she was going to pass out. She usually does not see physicians. She does not have a history of hypertension or previous thyroid disease. In the emergency room she was noted to have a mildly elevated D-dimer and underwent a CT scan of her chest which was unremarkable. EKG revealed sinus rhythm with premature ventricular complexes noted. Her hemoglobin was noted to be stable her potassium was low. This morning she says she still feels uncomfortable but her monitor reads sinus rhythm. [facility] Medical History Acute postoperative anemia due to expected blood loss Alcohol use Anemia Chronic neck pain Chronic thoracic back pain Diastasis of rectus abdominis Drug-induced pruritus Excessive and redundant skin and subcutaneous tissue Excessive body weight loss Fatigue Former smoker Frequent headaches Hemorrhoids HLD (hyperlipidemia) Hydronephrosis with urinary obstruction due to renal calculus Intertrigo Left ureteral stone Macromastia Migraine headache Nausea Nephrolithiasis Restless legs Shoulder pain Wears glasses Home Medications trazodone 100 mg tablet 100 mg PO QHS 07/15/20 [History Last Taken Unknown] Allergy/AdvReac Type Severity Reaction Status Date / Time clindamycin [From Cleocin] Allergy Mild itching Verified 01/25/22 20:44 amoxicillin Allergy Rash Verified 01/25/22 20:44 hydrocodone [From Vicodin] Allergy Rash Verified 01/25/22 20:44 hydromorphone [From Dilaudid] AdvReac Other Verified 01/25/22 20:44 sulfamethoxazole AdvReac Nausea Verified 01/25/22 20:44 [From Bactrim] trimethoprim [From Bactrim] AdvReac Nausea Verified 01/25/22 20:44 Family History Daughter Cancer Thyroid cancer Asthma Father Cancer bone Mother Hypertension Thyroid disorder Dementia Other Family history of breast cancer Surgical History History of abdominoplasty History of ear surgery Hx of section Hx of cystoscopy (~11/17/16) Hx of tubal ligation Status post bilateral breast reduction Social History Smoking Status: Former smoker second hand exposure: No alcohol intake: current alcohol intake frequency: a few times a month substance use type: does not use caffeine: No what type of physical activity do you participate in: none frequency: does not exercise seatbelt use: always additional social history: Does Not take Aspirin Does take Ibuprofen as needed ROS Constitutional Constitutional: Denies fever(s) or weight loss Eyes Eyes: Reports systems reviewed and no addt'l complaints, except as documented ENT HEENT: Reports systems reviewed and no addt'l complaints, except as documented Cardiovascular Cardiovascular: Denies chest pain at rest, chest pain with activity, dyspnea at rest, dyspnea on exertion, edema, palpitations or paroxysmal nocturnal dyspnea Respiratory/Chest Respiratory/Chest: Denies dyspnea on exertion, productive cough, shortness of breath at rest or shortness of breath with exertion Gastrointestinal Gastrointestinal: Denies change in bowel habits, nausea, vomiting or weight changes Genitourinary Genitourinary: Denies difficulty urinating Musculoskeletal Musculoskeletal: Denies joint stiffness or muscle weakness Integumentary Integumentary: Denies lesions Neurologic Neurologic: Denies dizziness or syncope Psychiatric Psychiatric: Denies anxiety Endocrine Endocrinology: Denies excessive sweating or fatigue Hematologic/Lymphatic Hematologic/Lymphatic: Denies anemia Allergic/Immunologic Allergic/Immunologic: Denies seasonal rhinorrhea Physical Exam Const alert, oriented x3 and no apparent distress General Appearance: cooperative HEENT hearing grossly normal bilaterally Head and Scalp: atraumatic Eyes EOMs intact bilaterally Neck General: normal visual inspection Chest inspection of chest normal and palpation of chest normal Resp normal respiratory effort Auscultation: clear to auscultation bilaterally Cardio regular rate, regular rhythm, S1 normal heart sound and S2 normal heart sound Jugular Venous Distention: JVD GI normal to inspection, nondistended, normoactive bowel sounds Extremity normal capillary refill and no pedal edema Peripheral Pulses: Yes pulses 2+ throughout and femoral pulses present Skin no rashes or lesions noted Neuro oriented x3 and CN's II-XII intact bilaterally Psych Appearance: grossly normal and appropriate Risk Stratification Risk Stratification Applicable: No Objective Data Vital Signs: Vital Signs Temp Pulse Resp BP Pulse Ox O2 Del Method 97.7 F L 78 18 101/56 L 97 Room Air 01/26/22 06:46 01/26/22 06:46 01/26/22 06:46 01/26/22 06:46 01/26/22 06:46 01/26/22 06:46 Oxygen Delivery Method Room Air Weight: 167 lb 15.876 oz Body Mass Index (BMI) 31.7 Intake & Output: Intake and Output for Last 24 Hours 01/24/22 01/25/22 01/26/22 23:59 23:59 23:59 Intake Total 1000 / 1000 Balance 1000 / 1000 Lab / Micro Data Result Diagrams: 01/26/22 02:08 01/26/22 02:08 Labs: Laboratory Results - last 24 hr 01/25/22 20:20: Urine Color Yellow, Urine Clarity Clear, Urine pH 7.0, Ur Specific [place] 1.005, Urine Protein Negative, Urine Glucose (UA) Normal, Urine Ketones Negative, Urine Occult Blood Negative, Urine Nitrite Negative, Urine Bilirubin Negative, Urine Urobilinogen Normal, Ur Leukocyte Esterase Negative, Urine RBC 0 SEEN, Urine WBC 0 SEEN, Ur Squamous Epith Cells 0 SEEN, Urine Bacteria 0 SEEN, Urine Mucus 0 SEEN 01/25/22 20:51: WBC 4.1 L, RBC 4.42, Hgb 13.6, Hct 41.9, MCV 94.8, MCH 30.8, MCHC 32.5, RDW Std Deviation 43.6, RDW Coeff of Cathy 12.4, Plt Count 141 L, MPV 10.1, Immature Gran % (Auto) 0.500, Neut % (Auto) 89.1 H, Lymph % (Auto) 5.8 L, [place] % (Auto) 3.4, Eos % (Auto) 1.0, Baso % (Auto) 0.2, Absolute Neuts (auto) 3.7, Absolute Lymphs (auto) 0.24 L, Nucleated RBC % 0, Differential Comment SEE COMMENT, Diff Path Review June dudley, Platelet Estimate SLT DEC, RBC Morphology N CHROM, Anisocytosis RARE, Macrocytosis RARE 01/25/22 20:51: D-Dimer Quant (PE/DVT) 0.68 H* 01/25/22 20:51: Sodium 138, Potassium 4.0, Chloride 109 H, Carbon Dioxide 25.0, Anion Gap 4 L, BUN 20 H, Creatinine 0.84, Estim Creat Clear Calc 53.74, Est GFR (MDRD) Af Amer 89, Est GFR (MDRD) Non-Af 74, BUN/Creatinine Ratio 23.9 H, Glucose 114 H, Calcium 9.0, Troponin I High Sens 5 01/25/22 23:15: Troponin I High Sens 5 01/26/22 02:08: WBC 3.3 L, RBC 4.02 L, Hgb 12.5, Hct 38.5, MCV 95.8, MCH 31.1, MCHC 32.5, RDW Std Deviation 44.7 H, RDW Coeff of Cathy 12.4, Plt Count 129 L, MPV 10.1, Immature Gran % (Auto) 0.300, Neut % (Auto) 82.0 H, Lymph % (Auto) 12.5 L, [place] % (Auto) 4.3, Eos % (Auto) 0.6, Baso % (Auto) 0.3, Absolute Neuts (auto) 2.7, Absolute Lymphs (auto) 0.41 L, Nucleated RBC % 0, Differential Comment SCANNED, Diff Path Review Carrie buckner 01/26/22 02:08: Sodium 142, Potassium 3.4 L, Chloride 113 H, Carbon Dioxide 25.0, Anion Gap 4 L, BUN 14, Creatinine 0.77, Estim Creat Clear Calc 58.63, Est GFR (MDRD) Af Amer 99, Est GFR (MDRD) Non-Af 82, BUN/Creatinine Ratio 18.3, Glucose 109 H, Calcium 7.9 L 01/26/22 02:08: Troponin I High Sens 5 Cardiology Labs/Tests 01/25/22 20:20: Urine Color Yellow, Urine Clarity Clear, Urine pH 7.0, Ur Specific [place] 1.005, Urine Protein Negative, Urine Glucose (UA) Normal, Urine Ketones Negative, Urine Occult Blood Negative, Urine Nitrite Negative, Urine Bilirubin Negative, Urine Urobilinogen Normal, Ur Leukocyte Esterase Negative, Urine RBC 0 SEEN, Urine WBC 0 SEEN 01/25/22 20:51: WBC 4.1 L, RBC 4.42, Hgb 13.6, Hct 41.9, MCV 94.8, MCH 30.8, MCHC 32.5, Plt Count 141 L, MPV 10.1, Immature Gran % (Auto) 0.500, Neut % (Auto) 89.1 H, Lymph % (Auto) 5.8 L, [place] % (Auto) 3.4, Eos % (Auto) 1.0, Baso % (Auto) 0.2, Absolute Neuts (auto) 3.7, Nucleated RBC % 0 01/25/22 20:51: D-Dimer Quant (PE/DVT) 0.68 H* 01/25/22 20:51: Sodium 138, Potassium 4.0, Chloride 109 H, Carbon Dioxide 25.0, Anion Gap 4 L, BUN 20 H, Creatinine 0.84, Est GFR (MDRD) Af Amer 89, Est GFR (MDRD) Non-Af 74, BUN/Creatinine Ratio 23.9 H, Glucose 114 H, Calcium 9.0 01/26/22 02:08: WBC 3.3 L, RBC 4.02 L, Hgb 12.5, Hct 38.5, MCV 95.8, MCH 31.1, MCHC 32.5, Plt Count 129 L, MPV 10.1, Immature Gran % (Auto) 0.300, Neut % (Auto) 82.0 H, Lymph % (Auto) 12.5 L, [place] % (Auto) 4.3, Eos % (Auto) 0.6, Baso % (Auto) 0.3, Absolute Neuts (auto) 2.7, Nucleated RBC % 0 01/26/22 02:08: Sodium 142, Potassium 3.4 L, Chloride 113 H, Carbon Dioxide 25.0, Anion Gap 4 L, BUN 14, Creatinine 0.77, Est GFR (MDRD) Af Amer 99, Est GFR (MDRD) Non-Af 82, BUN/Creatinine Ratio 18.3, Glucose 109 H, Calcium 7.9 L Rhythm: EKG: ECHO: Stress Test: Cardiac Cath: PCI: CT Surgery: Holter monitor: EPS: PPM: CXR: Chest CT Scan: Radiography Diagnostic Testing: Radiology Impression Chest X-Ray 01/25/22 20:54 IMPRESSION: No acute disease. Electronically Signed: Gualberto Wallace MD at 21:24 EST , Chest CTA 01/25/22 21:22 IMPRESSION: No PE, pneumonia or other acute disease. Electronically Signed: Gualberto Wallace MD at 22:11 EST ,
[2022-01-26 07:32] LABS: Magnesium 1.8 mg/dL (1.6-2.6)
[2022-01-26 07:36] LABS: Thyroid Stim Hormone (TSH) 1.03 uIU/mL (0.358-3.74)
--- NOTE | 2022-01-26 08:13 | PCM.PN.HOSP ---
Subjective Subjective Has some improved chest pain. Has had palpitations at times, but this episode last longer. Complains of near daily headaches. Worse in AM. Only sleeps 4-5 hours. Unknown if has HARRY. Objective Data Objective Data Vital Signs: Vital Signs Temp Pulse Resp BP Pulse Ox O2 Del Method 36.5 C L 73 18 101/56 L 97 Room Air 01/26/22 06:46 01/26/22 07:01 01/26/22 06:46 01/26/22 06:46 01/26/22 06:46 01/26/22 06:46 Oxygen Delivery Method Room Air Weight: 76.2 kg Body Mass Index (BMI) 31.7 Intake & Output: Intake and Output for Last 24 Hours 01/24/22 01/25/22 01/26/22 23:59 23:59 23:59 Intake Total 1000 / 1000 Balance 1000 / 1000 Lab / Micro Data Result Diagrams: 01/26/22 02:08 01/26/22 02:08 Labs: Laboratory Results - last 24 hr 01/25/22 20:20: Urine Color Yellow, Urine Clarity Clear, Urine pH 7.0, Ur Specific [place] 1.005, Urine Protein Negative, Urine Glucose (UA) Normal, Urine Ketones Negative, Urine Occult Blood Negative, Urine Nitrite Negative, Urine Bilirubin Negative, Urine Urobilinogen Normal, Ur Leukocyte Esterase Negative, Urine RBC 0 SEEN, Urine WBC 0 SEEN, Ur Squamous Epith Cells 0 SEEN, Urine Bacteria 0 SEEN, Urine Mucus 0 SEEN 01/25/22 20:51: WBC 4.1 L, RBC 4.42, Hgb 13.6, Hct 41.9, MCV 94.8, MCH 30.8, MCHC 32.5, RDW Std Deviation 43.6, RDW Coeff of Cathy 12.4, Plt Count 141 L, MPV 10.1, Immature Gran % (Auto) 0.500, Neut % (Auto) 89.1 H, Lymph % (Auto) 5.8 L, [place] % (Auto) 3.4, Eos % (Auto) 1.0, Baso % (Auto) 0.2, Absolute Neuts (auto) 3.7, Absolute Lymphs (auto) 0.24 L, Nucleated RBC % 0, Differential Comment SEE COMMENT, Diff Path Review May foll, Platelet Estimate SLT DEC, RBC Morphology N CHROM, Anisocytosis RARE, Macrocytosis RARE 01/25/22 20:51: D-Dimer Quant (PE/DVT) 0.68 H* 01/25/22 20:51: Sodium 138, Potassium 4.0, Chloride 109 H, Carbon Dioxide 25.0, Anion Gap 4 L, BUN 20 H, Creatinine 0.84, Estim Creat Clear Calc 53.74, Est GFR (MDRD) Af Amer 89, Est GFR (MDRD) Non-Af 74, BUN/Creatinine Ratio 23.9 H, Glucose 114 H, Calcium 9.0, Troponin I High Sens 5 01/25/22 23:15: Troponin I High Sens 5 01/26/22 02:08: WBC 3.3 L, RBC 4.02 L, Hgb 12.5, Hct 38.5, MCV 95.8, MCH 31.1, MCHC 32.5, RDW Std Deviation 44.7 H, RDW Coeff of Cathy 12.4, Plt Count 129 L, MPV 10.1, Immature Gran % (Auto) 0.300, Neut % (Auto) 82.0 H, Lymph % (Auto) 12.5 L, [place] % (Auto) 4.3, Eos % (Auto) 0.6, Baso % (Auto) 0.3, Absolute Neuts (auto) 2.7, Absolute Lymphs (auto) 0.41 L, Nucleated RBC % 0, Differential Comment SCANNED, Diff Path Review June01/26/22 02:08: Sodium 142, Potassium 3.4 L, Chloride 113 H, Carbon Dioxide 25.0, Anion Gap 4 L, BUN 14, Creatinine 0.77, Estim Creat Clear Calc 58.63, Est GFR (MDRD) Af Amer 99, Est GFR (MDRD) Non-Af 82, BUN/Creatinine Ratio 18.3, Glucose 109 H, Calcium 7.9 L 01/26/22 02:08: Troponin I High Sens 5 01/26/22 02:08: TSH 1.03 01/26/22 02:08: Magnesium 1.8 Radiography Diagnostic Testing: Radiology Impression Chest X-Ray 01/25/22 20:54 IMPRESSION: No acute disease. Electronically Signed: Gualberto Wallace MD at 21:24 EST , Chest CTA 01/25/22 21:22 IMPRESSION: No PE, pneumonia or other acute disease. Electronically Signed: Gualberto Wallace MD at 22:11 EST , Physical Exam Const alert and no apparent distress Resp normal respiratory effort, no retractions, no use of accessory muscles and clear to auscultation bilaterally Cardio regular rate, regular rhythm, S1 normal heart sound and S2 normal heart sound GI normal to inspection, nondistended, normoactive bowel sounds, soft to palpation, non-tender and non-distended Assessment & Plan Assessment/Plan (1) Bigeminy: PLAN: palpitations?underlying rhythm sinus tachycardia with frequent PVCs and at times bigeminy?patient will be admitted to the progressive care unit, will start metoprolol 50 mg p.o. twice daily, order echocardiogram for a.m., cycle cardiac enzymes due to chest pain and add as needed nitroglycerin and supportive oxygen per routine protocol. We will consult cardiology regarding her irregular cardiac rhythm that is symptomatic at this time. Echo shows an EF 55%. (2) Migraine: PLAN: Chronic. Ongoing for months. Takes 800 mg ibuprofen every AM when she has a migraine. More days w migraine, than without. Will administer 10 mg IV dexamethasone and Compazine and diphenhydramine Start topiramate for prophylaxis. Patient had an MRI of her brain back in May. Head CT showed 5.3 mm lacuna in the posterior aspect of the left insular cortex which was unchanged from that MRI in May. PLAN: Plan Hyperlipidemia?continue statin medication DVT prophylaxis?low molecular weight heparin Patient with migraines. We will administer the medications overnight and observe her. Patient is doing better on the seventh then we can discharge her. Patient also due for screening tests. Patient has not had colonoscopy in about 10 years. Does have a history of iron deficiency anemia and that her hemoglobin currently is 12.5. Did recommend patient follow-up with gastroenterology for colonoscopy. Greater than 35 minutes of which greater than 50% of the time was counseling the patient at bedside about the palpitations, appropriate follow-ups with specialist for screening tests and as well as discussing and getting further history regards to her chronic migraines. Charges/Coding Visit Charges Inpatient E&M: 68589 Subs Hosp L3
[2022-01-26] MEDS: Potassium Chloride Oral Tablet 20 MEQ 40 MEQ PO ×2 (08:19→16:08)
--- NOTE | 2022-01-26 09:46 | CT_ITS ---
STUDY: CT BRAIN WITHOUT CONTRAST REASON FOR EXAM: Female, 62 years old. Dizziness. Tachycardia. Near syncopal episode. RADIATION DOSAGE (If Supplied By Facility): CTDIvol = ( 44.99 ) mGy, DLP = ( 796.11 ) mGycm TECHNIQUE: Transaxial CT imaging of the brain was performed without administration of intravenous contrast material. Individualized dose optimization techniques were used for this CT. COMPARISON: Comparison is made with prior study 12/29/2012. FINDINGS: Normal soft tissue structures. Normal calvarium. Normal size ventricles and extra-axial spaces for the patient''s age. Normal white matter tracts of the cerebral hemispheres. 5.3 mm lacuna in the posterior aspect of the insular cortex of the left temporal lobe. This is unchanged from prior MRI dated 05/22/2021. Normal brainstem. Normal cerebellum. There is no intracranial hemorrhage. There are no findings of an acute ischemic infarction. Normal visualized paranasal sinuses. CT/Brain/Head without Contrast IMPRESSION: 5.3 mm lacuna in the posterior aspect of the left insular cortex. Electronically Signed: Miguel Ackerman MD at 12:19 EST ,
--- NOTE | 2022-01-26 10:25 | CASEMGMT ---
RN RENEE Face to Face with patient for initial transition planning/care coordination assessment. RN CM introduced self and role at [facility]. Patient lying in bed, alert and oriented. Patient willing to participate in assessment and is able to answer all questions appropriately. Care providers, pharmacy, and demographics verified. Patient wishes to discharge home, denies need for home health at this time. Patient states he has no further needs or concerns at this time. CM to follow for discharge planning needs that may arise. PCP: David Specialists: none Preferred Pharmacy: [facility] Insurance: MMO Prescription Benefit: yes Living Will/HPOA: yes, daughter Natasha LNOK: , daughter Living Arrangements: patient lives with in a split level home with 6 steps and railing between levels. Patient states she is independent and able to ambulate stairs. Transportation: self, DME/HHC: Patient denies DME in the home. Patient denies previous HHC Disposition Plan: Patient to discharge home with family support and follow-up plans in place. Cady ROSA, RN, CM
[2022-01-26] MEDS: DiphenhydrAMINE 50 MG/ML Syringe 25 MG IV ×3 (10:48→22:43)
[2022-01-26] MEDS: dexAMETHasone 10 MG/ML Vial IV (10:48)
[2022-01-26] MEDS: proCHLORPERazine 10 MG/2 ML Vial IV ×3 (10:49→22:47)
--- NOTE | 2022-01-26 15:42 | CHAPLAIN ---
Type of Pastoral Visit ___ Initial Visit ___ Follow-up Visit ___ On-call Visit ___ General Patient Visit ___ Spiritual Assessment ___ Family Conference ___ Bereavement ___ Rapid Response ___ Code Blue _x__ Other (describe below) Pastoral Care Referral From ___ Patient ___ Family ___ Nurse ___ Physician ___ Environmental Auditor ___ Dispatch Clerk ___ Other (describe below) Sacrament/Intervention ___ Active listening ___ Anointing ___ Methodist ___ Bereavement ___ Communion ___ Mitali exploration ___ ___ Life review ___ Prayer ___ Reconciliation ___ Sacrament of Sick ___ Supportive presence ___ Wedding ___ Other (describe below) Pastoral Comments two attempts made to visit with this patient; pt is sleeping on both occasions and family member ask that she not be awakened
[2022-01-26] MEDS: Topiramate 25 MG Tablet PO (22:42)
[2022-01-27 03:00] VITALS: PULSE 69
[2022-01-27 04:05] VITALS: BP 104/52; PULSE 64; RESP 18; TEMP 36.6; O2SAT 98
[2022-01-27] MEDS: proCHLORPERazine 10 MG/2 ML Vial IV (04:12)
[2022-01-27] MEDS: DiphenhydrAMINE 50 MG/ML Syringe 25 MG IV (04:13)
[2022-01-27] MEDS: 0.9% Saline Lock 10 ML Syringe IV (04:16)
[2022-01-27 07:01] VITALS: PULSE 53
--- NOTE | 2022-01-27 07:18 | NURSING ---
Documentation reviewed with Harriett OLGUIN.
[2022-01-27 07:35] VITALS: PULSE 69; RESP 16; O2SAT 96
[2022-01-27 07:45] VITALS: BP 102/60; PULSE 69; RESP 16; TEMP 36.8; O2SAT 96
[2022-01-27 08:23] VITALS: BP 113/78; PULSE 74
[2022-01-27] MEDS: Enoxaparin 40 MG/0.4 ML Syringe SC (08:23)
[2022-01-27] MEDS: Metoprolol Tartrate 50 MG Tablet PO (08:23)
[2022-01-27] MEDS: Potassium Chloride Oral Tablet 20 MEQ 40 MEQ PO (08:23)
--- NOTE | 2022-01-27 09:09 | PCM.PN.HOSP ---
Subjective Subjective Headache resolved. Feels great. Objective Data Objective Data Vital Signs: Vital Signs Temp Pulse Resp BP Pulse Ox O2 Del Method 36.8 C 74 16 113/78 96 Room Air 01/27/22 07:45 01/27/22 08:23 01/27/22 07:45 01/27/22 08:23 01/27/22 07:45 01/27/22 08:00 Oxygen Delivery Method Room Air Weight: 76.2 kg Body Mass Index (BMI) 31.7 Intake & Output: Intake and Output for Last 24 Hours 01/25/22 01/26/22 01/27/22 23:59 23:59 23:59 Intake Total 2362.50 / 2362.50 Balance 2362.50 / 2362.50 Lab / Micro Data Result Diagrams: 01/26/22 02:08 01/26/22 02:08 Radiography Diagnostic Testing: Radiology Impression Echocardiogram 01/25/22 23:59 Interpretation Summary Normal LV size. Left ventricular systolic function is normal. The estimated ejection fraction is 55 %. Trivial eccentric mitral valve insufficiency. Pulmonary artery systolic pressure is 21 mmHg. Ordering Physician: Cristi Srivastava Referring Physician: Dylan Hernandez M.D. Performed By: Bella Hudson RDCS Brain CT 01/26/22 09:46 IMPRESSION: 5.3 mm lacuna in the posterior aspect of the left insular cortex. Electronically Signed: Miguel Ackerman MD at 12:19 EST , Physical Exam Const alert and no apparent distress Resp normal respiratory effort, no retractions, no use of accessory muscles and clear to auscultation bilaterally Cardio regular rate, regular rhythm, S1 normal heart sound and S2 normal heart sound GI normal to inspection, nondistended, normoactive bowel sounds, soft to palpation, non-tender and non-distended Assessment & Plan Assessment/Plan (1) Bigeminy: PLAN: palpitations?underlying rhythm sinus tachycardia with frequent PVCs and at times bigeminy?patient will be admitted to the progressive care unit, will start metoprolol 50 mg p.o. twice daily, order echocardiogram for a.m., cycle cardiac enzymes due to chest pain and add as needed nitroglycerin and supportive oxygen per routine protocol. We will consult cardiology regarding her irregular cardiac rhythm that is symptomatic at this time. Echo shows an EF 55%. (2) Migraine: PLAN: Chronic. Resolved Ongoing for months. Takes 800 mg ibuprofen every AM when she has a migraine. More days w migraine, than without. Will administer 10 mg IV dexamethasone and Compazine and diphenhydramine Start topiramate for prophylaxis. Patient had an MRI of her brain back in May. Head CT showed 5.3 mm lacuna in the posterior aspect of the left insular cortex which was unchanged from that MRI in May. Continue with Topamax for migraine prophylaxis. Patient states that she had been on in the past but had stopped it due to concern about potential interaction with the trazodone that she takes for sleep. I told her that she is on a low-dose and that I would not have any concerns about safety with the trazodone. PLAN: Plan Hyperlipidemia?continue statin medication DVT prophylaxis?low molecular weight heparin Patient with migraines. We will administer the medications overnight and observe her. Patient is doing better on the seventh then we can discharge her. Patient also due for screening tests. Patient has not had colonoscopy in about 10 years. Does have a history of iron deficiency anemia and that her hemoglobin currently is 12.5. Did recommend patient follow-up with gastroenterology for colonoscopy, pulmonary for PSG for HARRY eval.
--- NOTE | 2022-01-27 09:36 | PCM.DC ---
Discharge Instructions Diet Discharge Diet: No restrictions Dressing / Incision Call your doctor if you observe: Increased palpitations (irregular heartbeat) Follow Up Care Test Results: Test results from this visit will be discussed in further detail at your follow-up appointment, if applicable. Discharge Plan Admission Admit Date/Time: 01/25/22 23:21 Primary Reason for Your Visit: Ventricular bigeminy. Migraine. Attending Provider: Eric Pulido Primary Care Provider: Red Hernandez Consulting Providers: Eric Cuevas ; Cristi Srivastava Discharge Orders/Prescriptions Prescriptions: New metoprolol tartrate 50 mg Tablet 50 mg PO BID Qty: 60 0RF topiramate 25 mg Tablet 25 mg PO QHS Qty: 30 0RF Continued trazodone 100 mg Tablet 100 mg PO QHS Referrals / Follow Up: [facility] [Provider Group] - Within 3 Months (colonoscopy screening. ) Pulmonary Medicine [facility] [Provider Group] - Within 3 Months (evaluation for HARRY.) Eric Cuevas MD [Med Staff - Active Staff] - Within 1 Month Red Hernandez MD [Primary Care Provider] - Within 2 Weeks Disposition Disposition (needs filled in before D/C Order can be placed): Home, Self Care
[2022-01-27 09:39] LABS: Pathologist Review Reviewed
--- NOTE | 2022-01-27 09:40 | DS.PCM_ITS ---
Providers Date of Admission: 01/25/22 Primary Care Physician: Dr. Red Hernandez MD Consultations 01/25/22 23:59 Consult: Cardiology Routine Consulting Provider: Erci Cuevas Reason for Consult: Palpitations with syncope EMERGENT Consult: Yes MD Notified: Yes Date Notified: 01/25/22 Time Notified: 23:23 Method of Notification: Verbal Method of Consult:: In-Person Reason For Visit: PALPITATIONS WITH NEAR SYNCOPE Diagnosis Discharge Diagnosis (1) Bigeminy: Status: Acute Code(s): I49.8 - Other specified cardiac arrhythmias Plan: palpitations?underlying rhythm sinus tachycardia with frequent PVCs and at times bigeminy?patient will be admitted to the progressive care unit, will start metoprolol 50 mg p.o. twice daily, order echocardiogram for a.m., cycle cardiac enzymes due to chest pain and add as needed nitroglycerin and supportive oxygen per routine protocol. We will consult cardiology regarding her irregular cardiac rhythm that is symptomatic at this time. Echo shows an EF 55%. (2) Migraine: Status: Acute Code(s): G43.909 - Migraine, unspecified, not intractable, without status migrainosus Plan: Chronic. Resolved Ongoing for months. Takes 800 mg ibuprofen every AM when she has a migraine. More days w migraine, than without. Will administer 10 mg IV dexamethasone and Compazine and diphenhydramine Start topiramate for prophylaxis. Patient had an MRI of her brain back in May. Head CT showed 5.3 mm lacuna in the posterior aspect of the left insular cortex which was unchanged from that MRI in May. Continue with Topamax for migraine prophylaxis. Patient states that she had been on in the past but had stopped it due to concern about potential interaction with the trazodone that she takes for sleep. I told her that she is on a low-dose and that I would not have any concerns about safety with the trazodone. Plan Hyperlipidemia?continue statin medication DVT prophylaxis?low molecular weight heparin Patient with migraines. We will administer the medications overnight and observe her. Patient is doing better on the seventh then we can discharge her. Patient also due for screening tests. Patient has not had colonoscopy in about 10 years. Does have a history of iron deficiency anemia and that her hemoglobin currently is 12.5. Did recommend patient follow-up with gastroenterology for colonoscopy, pulmonary for PSG for HARRY eval. Medications at Discharge Home Medications trazodone 100 mg tablet 100 mg PO QHS 07/15/20 metoprolol tartrate 50 mg tablet 50 mg PO BID #60 tabs 01/27/22 topiramate 25 mg tablet 25 mg PO QHS #30 tabs 01/27/22 Hospital Course Operations None Procedures 2-D Echocardiogram Summary of Care Provided Minutes Spent on Discharge: 28 Weight / BMI Weight Weight: 76.2 kg Body Mass Index (BMI) 31.7 ABG / Lab / Microbiology Data Result Diagrams: 01/26/22 02:08 01/26/22 02:08 Laboratory: Laboratory Results - last 24 hr 01/26/22 02:08: Diff Path Review Reviewed Radiography Diagnostic Testing: Radiology Impression Echocardiogram 01/25/22 23:59 Interpretation Summary Normal LV size. Left ventricular systolic function is normal. The estimated ejection fraction is 55 %. Trivial eccentric mitral valve insufficiency. Pulmonary artery systolic pressure is 21 mmHg. Ordering Physician: Cristi Srivastava Referring Physician: Dylan Hernandez M.D. Performed By: Bella Hudson RDCS Brain CT 01/26/22 09:46 IMPRESSION: 5.3 mm lacuna in the posterior aspect of the left insular cortex. Electronically Signed: Miguel Ackerman MD at 12:19 EST , D/C Instructions Discharge Diet: No restrictions Call your doctor if you observe: Increased palpitations (irregular heartbeat) Meaningful Use Info Meaningful Use Diagnoses (Choose all that apply): None applicable Discharge Plan Admission Admit Date/Time: 01/25/22 23:21 Primary Reason for Your Visit: Ventricular bigeminy. Migraine. Attending Provider: Eric Pulido Primary Care Provider: Red Hernandez Consulting Providers: Eric Cuevas ; Cristi Srivastava Discharge Orders/Prescriptions Prescriptions: New metoprolol tartrate 50 mg Tablet 50 mg PO BID Qty: 60 0RF topiramate 25 mg Tablet 25 mg PO QHS Qty: 30 0RF Continued trazodone 100 mg Tablet 100 mg PO QHS Referrals / Follow Up: [facility] [Provider Group] - Within 3 Months (colonoscopy screening. ) Pulmonary Medicine [facility] [Provider Group] - Within 3 Months (evaluation for HARRY.) Eric Cuevas MD [Med Staff - Active Staff] - Within 1 Month Red Hernandez MD [Primary Care Provider] - Within 2 Weeks Disposition Disposition (needs filled in before D/C Order can be placed): Home, Self Care Charges/Coding Visit Charges Inpatient E&M: 56892 Disch Hosp
[2022-01-27 09:42] LABS: Pathologist Review Reviewed
--- NOTE | 2022-01-27 10:51 | PHA.DC.MC ---
Pharmacy Service has performed discharge medication reconciliation and counseling for this patient. 1. METOPROLOL TARTRATE 50MG PO BID The patient's discharge medication list was reviewed for discrepancies and discrepancies were resolved. Home Medications trazodone 100 mg tablet 100 mg PO QHS sleep 07/15/20 metoprolol tartrate 50 mg tablet 50 mg PO BID #60 tabs 01/27/22 topiramate 25 mg tablet 25 mg PO QHS #30 tabs 01/27/22 The patient was counseled on the following discharge medications and changes in medications for homegoing were reviewed. The Reason for Use, instructions for use, and potential side effects were reviewed for all new medications. The patient's questions regarding all of their medications were answered. The patient was able to verbally demonstrate an understanding of their discharge medications.
== END 2022-01-27 11:11 | disposition home or self-care (01) | DRG 310 ==
LOC: ED 21:40 → PCU 01-26 04:19
PROVIDERS: Internal Medicine Cardiovascular Disease; Admitting Provider Family Medicine; Emergency Provider Student in an Organized Health Care Education/Training Program; PCP Family Medicine
DX: I49.8 Other specified cardiac arrhythmias (principal); E78.5 Hyperlipidemia, unspecified; M54.2 Cervicalgia; G43.909 Migraine, unspecified, not intractable, without status migrainosus; G89.29 Other chronic pain; R00.2 Palpitations; Z87.891 Personal history of nicotine dependence
CPT/HCPCS: 36415; 70450; 71045; 71275; 80048; 81001; 83735; 84443; 84484; 85025; 85379; 93005; 93306; 99285; J7030; Q9967; A4216

== ENCOUNTER → 2022-01-28 | Outpatient (CLI) | payer OTHER, SELFPAY ==
--- NOTE | 2022-01-28 13:03 | MRI_ITS ---
STUDY: MRI LEFT SHOULDER REASON FOR EXAM: Female, 62 years old. PAIN NO SPECIFIC INJURY, DECREASED ROM TECHNIQUE: Standardized fat and water weighted pulse sequences were obtained in all 3 orthogonal planes. COMPARISON: Chest x-ray dated January 25, 2022 FINDINGS: There is mild supraspinatus tendinosis with tendon thickening at the greater tuberosity insertion site anteriorly, but without a demonstrated tendon tear. Normal infraspinatus tendon. Normal subscapularis tendon. Normal teres minor tendon. Normal supraspinatus muscle. Normal infraspinatus muscle. Normal subscapularis muscle. Normal teres minor muscle. Normal glenohumeral articulation. A tiny joint effusion is present. Normal humeral head and visualized proximal humerus. Normal biceps labral complex. Normal intracapsular long biceps tendon. Normal labrum. Normal capsulo- ligamentous complex. Normal rotator interval. There is moderate osteoarthritis of the acromioclavicular articulations, with mild underlying impingement at the musculotendinous junction of the supraspinatus. There is a Type II morphology (curved), with a neutral orientation. There is no subacromial-subdeltoid bursal fluid. Normal visualized coracohumeral and coracoacromial ligaments. Normal quadrilateral space. Normal axillary space. Normal deltoid muscle. Normal trapezius muscle. MRI/Upper Ext Joint Only(Routine) IMPRESSION: 1. Mild supraspinatus tendinosis 2. 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
== END | disposition home or self-care (01) ==
LOC: MRI 12:47
PROVIDERS: PCP Family Medicine; Referring Provider Orthopaedic Surgery; Visit Provider Orthopaedic Surgery
DX: M25.512 Pain in left shoulder (principal)
CPT/HCPCS: 73221

== ENCOUNTER → 2022-02-26 | Outpatient (CLI) | payer OTHER, SELFPAY ==
[2022-02-26 16:45] LABS: Bacteria 0 SEEN /hpf (None Seen); Mucous, Urine 0 SEEN /hpf (<or=2+); Red Blood Cells-Urine 0 SEEN /hpf (0-5)
[2022-02-26 17:23] LABS: Color, Urine Yellow (Yellow); Glucose, Dipstick Normal (Normal); Leukocyte Esterase-Dipstick Negative /ul (Negative); Nitrite-Dipstick Negative (Negative); Occult Blood-Urine 10 /ul (Negative); Protein-Dipstick 15 mg/dl (Negative); Urine Bilirubin Dipstick Negative (Negative); Urine Clarity Clear (Clear); Urine Urobilinogen 1 mg/dl (Normal)
[2022-02-26 17:38] LABS: Ketone-Dipstick 150 mg/dl (Negative)
[2022-02-26 17:53] LABS: Squamous Epithelial Cells - UA 0-5 SEEN /hpf (5-10); White Blood Cells 0-5 SEEN /hpf (0-5)
[2022-02-26 17:54] LABS: Hyaline Cast 0-5 SEEN /lpf (0-5); Uric Acid Crystals Ur 2+ /hpf (<or=1+)
== END | disposition home or self-care (01) ==
LOC: LABSPEC 16:42
PROVIDERS: PCP Family Medicine; Referring Provider Physician Assistant Surgical; Visit Provider Physician Assistant Surgical
DX: R30.0 Dysuria (principal)
CPT/HCPCS: 81001; 87086; 87088

== ENCOUNTER 2022-03-02 19:37 | Emergency (ER) | payer OTHER, SELFPAY ==
[2022-03-02 19:38] VITALS: BP 120/76; PULSE 88; RESP 15; TEMP 37.2; O2SAT 96; BMI 29.5
--- NOTE | 2022-03-02 20:46 | ED.VIS.GI ---
HPI HPI - GI History of Present Illness Chief Complaint: Abd Pain Narrative Narrative: 62-year-old female presenting with pain all over her abdomen. She states it seems to be worse in the right upper quadrant but it hurts everywhere. Patient states this has been ongoing for 2 weeks. She has not had a bowel movement in that time. Since she has been constipated she states she has tried nothing to have a bowel movement. She states I do not know what to take. She also has not taken anything for pain such as Tylenol or ibuprofen. Patient again states I do not know what to take for this. She do not have any urinary complaints. She does have nausea and vomiting which started today but states has been difficult to eat and drink secondary to pain. She has not had a fever. She denies urinary or vaginal complaints. No diarrhea. No intra-abdominal surgeries in the past but she did have a tummy tuck couple years ago. [facility] Medical History Acute postoperative anemia due to expected blood loss Alcohol use Anemia Chronic neck pain Chronic thoracic back pain Diastasis of rectus abdominis Drug-induced pruritus Elective procedure for unacceptable cosmetic appearance Excessive and redundant skin and subcutaneous tissue Excessive body weight loss Family history of breast cancer Fatigue Former smoker Former smoker Frequent headaches Hemorrhoids HLD (hyperlipidemia) Hydronephrosis with urinary obstruction due to renal calculus Intertrigo Left ureteral stone Macromastia Migraine Migraine headache Nausea Nephrolithiasis Restless legs Shoulder pain Wears glasses Home Medications trazodone 100 mg tablet 100 mg PO QHS sleep 07/15/20 [History Last Taken Unknown] metoprolol tartrate 50 mg tablet 50 mg PO BID #60 tabs 01/27/22 [Rx Last Taken Unknown] topiramate 25 mg tablet 25 mg PO QHS #30 tabs 01/27/22 [Rx Last Taken Unknown] ondansetron HCl 8 mg tablet 8 mg PO Q8H PRN nausea and vomiting #10 tabs 02/26/22 [Rx Last Taken Unknown] ondansetron 4 mg disintegrating tablet 4 mg PO Q8H PRN nausea and vomiting #10 tabs 03/02/22 [Rx Last Taken Unknown] peg 3350-electrolytes 236 gram-22.74 gram-6.74 gram-5.86 gram solution (GaviLyte-G) 240 ml PO Q10M PRN #4,000 mL 03/02/22 [Rx Last Taken Unknown] Allergy/AdvReac Type Severity Reaction Status Date / Time clindamycin [From Cleocin] Allergy Mild itching Verified 03/02/22 19:42 amoxicillin Allergy Rash Verified 03/02/22 19:42 hydrocodone [From Vicodin] Allergy Rash Verified 03/02/22 19:42 hydromorphone [From Dilaudid] AdvReac Other Verified 03/02/22 19:42 sulfamethoxazole AdvReac Nausea Verified 03/02/22 19:42 [From Bactrim] trimethoprim [From Bactrim] AdvReac Nausea Verified 03/02/22 19:42 Family History Daughter Cancer Thyroid cancer Asthma Father Cancer bone Mother Hypertension Thyroid disorder Dementia Other Family history of breast cancer Surgical History History of abdominoplasty History of ear surgery Hx of section Hx of cystoscopy (~11/17/16) Hx of tubal ligation Status post bilateral breast reduction Social History Smoking Status: Former smoker second hand exposure: No alcohol intake: current alcohol intake frequency: a few times a month substance use type: does not use caffeine: No what type of physical activity do you participate in: none frequency: does not exercise seatbelt use: always additional social history: Does Not take Aspirin Does take Ibuprofen as needed ROS ROS ED Constitutional Constitutional ED: Denies chills, fever(s) or subjective ENT ENT ED: Denies rhinorrhea or sore throat Cardiovascular Cardiovascular: Denies chest pain or palpitations Respiratory/Chest Respiratory/Chest: Denies cough or dyspnea Gastrointestinal Gastrointestinal: Reports abdominal pain, constipation, nausea and vomiting; Denies diarrhea or melena Genitourinary Genitourinary ED: Denies dysuria or hematuria Musculoskeletal Musculoskeletal: Denies arthralgias Integumentary Denies abscess or Abrasions Neurologic Neurologic: Denies headache(s) or paresthesias Psychiatric Psychiatric: Denies anxiety or depression EXAM Physical Exam Const Vital Signs: 03/02/22 19:38 03/02/22 22:34 Temperature 98.9 F Temperature Source Temporal Pulse Rate 88 Respiratory Rate 15 Blood Pressure 120/76 Blood Pressure Mean 90 Pulse Ox 96 99 Oxygen Delivery Method Room Air Room Air Positive well nourished General Appearance ED: NAD; Negative for pallor HEENT Reports moist mucous membranes normocephalic and atraumatic Eyes PERRL and EOMs intact bilaterally General Eye ED: Negative for pale conjunctiva or scleral icterus Neck no lymphadenopathy Resp normal respiratory effort Effort and Inspection: Negative for respiratory distress Cardio regular rate and regular rhythm GI GI Narrative: Acutely tender abdomen worse in the right upper quadrant and epigastric region. Abdomen soft. Nonperitoneal Extremity full ROM Neuro CN's II-XII intact bilaterally and moves all extremities Sensorium / Orientation: alert Motor Exam: strength 5/5 throughout Psych mental status grossly normal and thought process normal Skin no wounds General Skin Exam: Negative for jaundice or pallor MDM MDM MDM Narrative Medical decision making narrative: Patient presenting with abdominal pain which is diffuse and worse in the epigastrium and right upper quadrant. She does not have a ja Bhat sign. She reports she is been constipated for 2 weeks. She is not tried anything for constipation such as a laxative, stool softener, enemas. She has not taken anything for pain such as Tylenol or ibuprofen. She reports no fever. No urinary or vaginal complaints. It sounds as if the patient is constipated and she states that she does have a history of constipation and normally goes 3 to 4 days but she is never had not had a bowel movement this long. Given her symptoms I did order basic lab work. CBC to look for leukocytosis, hemoglobin, differential. CMP was ordered to assess her liver function, electrolytes, renal function. Lipase was ordered to check her pancreas. Patient was medicated with Zofran for her nausea. She was given a liter of IV fluids due to vomiting and concern for dehydration. We did discuss holding off on narcotic pain medication at this time because the patient does not like it, and if he ends up being just constipated this would work against her. CBC shows leukopenia which she has chronically. Hemoglobin however stable. Platelets are normal. Renal function electrolytes are normal. Patient's got a slight bump in her ALT at 101 and alkaline phosphatase at 384 with a normal bilirubin. Since she is having some right upper quadrant pain I did obtain an right upper quadrant ultrasound which is negative. She also had a CT of the abdomen pelvis with IV contrast which shows constipation without other acute abnormality. I counseled the patient on all findings. She states that laxatives typically make her nauseous. I counseled her that we would give her some Zofran here as well as some GoLytely. I educated her at length on high-fiber foods because she states that she has no idea what the right foods to eat are. She is counseled stay well-hydrated. Return precautions discussed. Impression: 1. Abdominal pain 2. Nausea/vomiting 3. Constipation Lab Data Attestation: I reviewed the patient's lab results. Labs: Laboratory Results - last 24 hr 03/02/22 03/02/22 03/02/22 20:45 20:45 21:12 WBC 3.7 L RBC 4.63 Hgb 14.8 Hct 44.3 MCV 95.7 MCH 32.0 MCHC 33.4 RDW Std Deviation 47.3 H RDW Coeff of Cathy 13.4 Plt Count 194 MPV 10.2 Immature Gran % (Auto) 0.500 Neut % (Auto) 63.0 Lymph % (Auto) 23.9 [place] % (Auto) 7.5 Eos % (Auto) 4.0 Baso % (Auto) 1.1 H Absolute Neuts (auto) 2.3 Absolute Lymphs (auto) 0.89 Nucleated RBC % 0 Sodium 140 Potassium 3.7 Chloride 110 H Carbon Dioxide 25.0 Anion Gap 5 BUN 14 Creatinine 0.89 Estim Creat Clear Calc 50.72 Est GFR (MDRD) Af Amer 83 Est GFR (MDRD) Non-Af 69 BUN/Creatinine Ratio 15.7 Glucose 103 Calcium 9.0 Total Bilirubin 0.50 AST 35 ALT 101 H Alkaline Phosphatase 384 H Total Protein 6.7 Albumin 3.1 L Globulin 3.6 Albumin/Globulin Ratio 0.9 Lipase 181 Urine Color Yellow Urine Clarity Clear Urine pH 6.0 Ur Specific [place] 1.010 Urine Protein Negative Urine Glucose (UA) Normal Urine Ketones 15 H Urine Occult Blood Negative Urine Nitrite Negative Urine Bilirubin Negative Urine Urobilinogen Normal Ur Leukocyte Esterase Negative Urine RBC 0 SEEN Urine WBC 0 SEEN Ur Squamous Epith Cells 0 SEEN Urine Bacteria 0 SEEN Urine Mucus 0 SEEN Radiography Diagnostic Testing: Clinical Impression(s) from Imaging Studies Abdomen/Pelvis CT 03/02/22 20:48 IMPRESSION: No acute findings in the abdomen or pelvis. Colonic fecal burden consistent with clinical constipation. Electronically Signed: Matt Duncan MD at 22:13 EST , Gallbladder Ultrasound 03/02/22 21:51 IMPRESSION: No acute findings. Electronically Signed: Matt Duncan MD at 22:52 EST , Discharge Plan Triage Chief Complaint: Abd Pain ED Provider: Behzad Green Dx/Rx/DC Orders Instructions: ED Abdominal Pain Unkn Cause Fem, ED Constipation (Adult) Prescriptions: New peg 3350-electrolytes [GaviLyte-G] 236-22.74-6.74 -5.86 gram recon soln 240 ml PO Q10M PRN Qty: 4000 0RF Rx Instructions: until fecal effluent is clear ondansetron 4 mg tablet,disintegrating 4 mg PO Q8H PRN (Reason: nausea and vomiting) Qty: 10 0RF No Action ondansetron HCl 8 mg tablet 8 mg PO Q8H PRN (Reason: nausea and vomiting) Qty: 10 0RF trazodone 100 mg Tablet 100 mg PO QHS metoprolol tartrate 50 mg Tablet 50 mg PO BID Qty: 60 0RF topiramate 25 mg Tablet 25 mg PO QHS Qty: 30 0RF Primary Care Provider: Red Hernandez Referrals: Red Hernandez MD [Primary Care Provider] - Disposition Disposition: Home, Self Care
--- NOTE | 2022-03-02 20:48 | CT_ITS ---
INDICATION: abdominal pain EXAMINATION: CT ABDOMEN AND PELVIS WITH CONTRAST - CT Abdomen And Pelvis W/ Contrast Injection TECHNIQUE: Helically acquired images were obtained of the abdomen and pelvis following IV contrast. A radiation dose optimization technique was used for this scan. IV Contrast dosage and agent: 100 cc Isovue-370 Oral contrast: None. COMPARISON: 12/10/2018, 11/19/2016 FINDINGS: LOWER CHEST: Lung bases are clear. No cardiomegaly or pericardial effusion. LIVER: Minimal increase in size in a hypodense lesion right lobe consistent with hemangioma. No concerning focal mass. GALLBLADDER AND BILIARY TREE: No calcified gallstones. No gallbladder distension or wall edema. No intra- or extrahepatic biliary ductal dilation. PANCREAS: No focal cystic or solid mass. SPLEEN: Normal size without focal cystic or solid mass. ADRENAL GLANDS: No nodules. KIDNEYS AND URETERS: Normal renal size and position. No hydronephrosis. PERITONEUM: No ascites or free air. BOWEL: Normal appendix. No stomach or bowel distension. No focal inflammatory change. Diffusely increased colonic fecal burden. LYMPH NODES: No enlarged mesenteric or retroperitoneal lymph nodes. VESSELS: Aorta is non-dilated. URINARY BLADDER: Unremarkable. REPRODUCTIVE ORGANS: No pelvic masses. ABDOMINAL WALL: Small fat-containing umbilical hernia. BONES: No acute or aggressive osseous abnormality. CT/Abdomen/Pelvis W IV Cont ONLY IMPRESSION: No acute findings in the abdomen or pelvis. Colonic fecal burden consistent with clinical constipation. Electronically Signed: Matt Duncan MD at 22:13 EST ,
[2022-03-02 20:52] LABS: Absolute Lymphocyte Count 0.89 X10^3/uL (0.83-4.51); Absolute Neutrophil Count 2.3 X10^3/uL (2.0-7.7); Basophil# 0.04 X10^3/uL; Basophil% 1.1 % (0-1); Eosinophil# 0.15 X10^3/uL; Hematocrit 44.3 % (37-47); Hemoglobin 14.8 g/dL (12.0-15.0); Lymphocyte # 0.89 X10^3/ul (0.83-4.51); Lymphocyte % 23.9 % (19-41); Mean Corp Hgb Conc 33.4 g/dL (32-36); Mean Corpuscular Volume 95.7 fL (81-99); Mean Platelet Vol. 10.2 fl (6.2-12.0); Monocyte# 0.28 X10^3/uL; Monocyte% 7.5 % (0-10); NRBC Flagged by Analyzer 0 % (0-5); Neutrophil # 2.34 X10^3/uL (2.7-7.7); Platelet Count 194 K/mm3 (150-450); RBC Distribution Width CV 13.4 % (11.6-14.6); RBC Distribution Width SD 47.3 fl (35.1-43.9); Red Blood Count 4.63 M/mm3 (4.2-5.4); White Blood Count 3.7 K/mm3 (4.4-11.0)
[2022-03-02] MEDS: 0.9% Normal Saline 1,000 ML 999 ML IV (21:05)
[2022-03-02] MEDS: Ondansetron 4 MG/2 ML Vial IV (21:05)
[2022-03-02 21:10] LABS: ALB/GLOB Ratio 0.9 RATIO (0.9-2.4); AST(SGOT) 35 U/L (15-37); Alanine Aminotransfer ALT/SGPT 101 U/L (13-56); Albumin, Serum 3.1 g/dL (3.2-5.0); Alkaline Phosphatase 384 U/L (45-117); Anion Gap 5 (5-15); BUN 14 mg/dL (7-18); BUN/Creat Ratio 15.7 RATIO (10-20); Chloride 110 mmol/L (98-107); Creatinine, Serum 0.89 mg/dL (0.55-1.02); EST Glomerular Filtration Rate 69 mL/min (>60); Est Glom Filt Rate - Afr Amer 83 mL/min (>60); Estimated Creatinine Clearance 50.72 ml/min; Globulin 3.6 g/dL (2.2-4.2); Glucose 103 mg/dL (74-106); Lipase 181 U/L (73-393); Potassium 3.7 mmol/L (3.5-5.1); Protein, Total 6.7 g/dL (6.4-8.2); Sodium Level 140 mmol/L (136-145)
[2022-03-02 21:24] LABS: Bacteria 0 SEEN /hpf (None Seen); Mucous, Urine 0 SEEN /hpf (<or=2+); Red Blood Cells-Urine 0 SEEN /hpf (0-5); Squamous Epithelial Cells - UA 0 SEEN /hpf (5-10); White Blood Cells 0 SEEN /hpf (0-5)
[2022-03-02 21:40] LABS: Color, Urine Yellow (Yellow); Glucose, Dipstick Normal (Normal); Ketone-Dipstick 15 mg/dl (Negative); Leukocyte Esterase-Dipstick Negative /ul (Negative); Nitrite-Dipstick Negative (Negative); Occult Blood-Urine Negative /ul (Negative); Protein-Dipstick Negative (Negative); Urine Bilirubin Dipstick Negative (Negative); Urine Clarity Clear (Clear); Urine Urobilinogen Normal (Normal)
--- NOTE | 2022-03-02 21:51 | US_ITS ---
PROCEDURE: ABDOMINAL ULTRASOUND, RIGHT UPPER QUADRANT COMPARISONS: CT abdomen and pelvis same date. CLINICAL INDICATION: ruq pain TECHNIQUE: Real-time sandoval-scale abdominal ultrasound. Limited color Doppler evaluation is performed. FINDINGS: Liver: Normal in size and echogenicity. 1.2 cm cyst right lobe. Appropriate hepatopetal flow is present in the main portal vein. Gallbladder: Normal wall thickness. No gallstones. Sonographic Bhat''s sign is absent. No pericholecystic fluid is present. Biliary Tree: Nondilated. Common bile duct measures 5.5 mm. Pancreas: Limited evaluation of the head and body is unremarkable. Right kidney: Normal in size and echogenicity. No hydronephrosis or stones. The right kidney measures 10.3 cm in long axis. No free fluid. US/Gallbladder IMPRESSION: No acute findings. Electronically Signed: Matt Duncan MD at 22:52 EST ,
[2022-03-02 22:34] VITALS: O2SAT 99
== END 2022-03-02 23:19 | disposition home or self-care (01) ==
PROVIDERS: Emergency Provider Student in an Organized Health Care Education/Training Program; PCP Family Medicine; Visit Provider Student in an Organized Health Care Education/Training Program
DX: K59.00 Constipation, unspecified (principal); Z87.891 Personal history of nicotine dependence
CPT/HCPCS: 74177; 76705; 80053; 81001; 83690; 85025; 96361; 96374; 99283; J7030; Q9967; A4216; J2405

== ENCOUNTER 2022-03-05 07:24 | Day surgery (SDC) | payer OTHER, SELFPAY ==
[2022-03-04 14:53] LABS: Prothrombin Time (Protime)PT. 13.3 SECONDS (11.7-14.9)
--- NOTE | 2022-03-05 09:18 | CL.D_ITS ---
Patient Name: MARK ANDERSON Study Date: 03/05/2022 Performing: Eric Cuevas MD Ht: 61 inches 154.94 cm : 1960 Wt: 159 lbs 72.12 kg Age: 62 Gender: female BSA: 1.71 PROCEDURE(S) PERFORMED DC01-(53260)LHC/COR/LV CLINICAL PROFILE AND INDICATIONS Indications: Suspected CAD Heart Failure: None Stress/Imaging Stress/Image Study Performed: No CAD Presentations: Symptom unlikely to be ischemic. CONCLUSIONS Normal coronary arteries Normal LV size, wall motion,and systolic function RECOMMENDATIONS Medical therapy DESCRIPTION OF PROCEDURE The patient arrived to the procedure lab. The risks and benefits of the procedure as well as a full description of our services here and current unavailability of surgical backup were fully explained to the patient and/or their significant other prior to the catheterization. The Timeout was completed, verifying the correct patient and procedure. The patient's procedural site was prepped and draped in the usual fashion. Local anesthetic was given subcutaneously to right radial region with Lidocaine 2%. Using a modified Seldinger technique, arterial access was obtained via the right radial artery, a 6Fr sheath was inserted. Right Coronary Artery selective angiography was then performed in multiple views using a 5 Fr. 4.0 [place] catheter. Left Coronary Artery selective angiography was performed in multiple views using a 5 Fr. 4.0 [place] catheter. Left Ventriculography was performed in RAMIRES projection using a 5 Fr. [place] catheter. LV to AO pullback pressures were then recorded.The arterial sheath was pulled and a TR Band was applied for hemostasis CORONARY ANGIOGRAPHY DOMINANCE: Right Dominant LEFT HEART ASSESSMENT Left Ventricular Ejection Fraction: by LV Gram 60 % Normal LV wall motion LEFT MAIN: Angiographically normal LEFT ANTERIOR DESCENDING ARTERY: Angiographically normal CIRCUMFLEX ARTERY: No significant disease noted RIGHT CORONARY ARTERY: No significant disease noted COMPLICATIONS No Complications PROCEDURE MEDICATIONS Versed 1 mg IV Fentanyl 50 mcg IV Oxygen: 2 L/min via nasal cannula Benadryl 50 mg IV @ 03/05/2022 08:47:14 Heparin given IA 03/05/2022 08:51:23 Solu-medrol 125 mg IV 03/05/2022 08:47:05 SUMMARY OF HEMODYNAMIC DATA Time AIR REST ECG 07:44:15 AO 114/74 (93) SA 08:52:19 LV 113/7, 19 08:56:59 LV 104/6, 25 08:57:08 LV 103/15, 19 08:57:48 LV 106/15, 19 08:57:57 LVp 113/17, 20 08:58:00 AO 117/74 (96) 08:58:07 09:10:12 Signed By Eric Cuevas MD On 03/05/2022 09:17:18 Eric Cuevas MD
== END 2022-03-05 11:10 | disposition home or self-care (01) ==
LOC: CLSP 07:24
PROVIDERS: Physician Assistant Medical; PCP Family Medicine; Referring Provider Internal Medicine Cardiovascular Disease; Visit Provider Internal Medicine Cardiovascular Disease
DX: I25.10 Atherosclerotic heart disease of native coronary artery without angina pectoris (principal); R06.02 Shortness of breath; Z87.891 Personal history of nicotine dependence
CPT/HCPCS: 36415; 85610; 85730; 93458; 99152; 99153; J7040; C1769; C1894; Q9967

== ENCOUNTER → 2022-03-08 | Outpatient (CLI) | payer OTHER, SELFPAY ==
[2022-03-08 12:49] LABS: ALB/GLOB Ratio 0.9 RATIO (0.9-2.4); AST(SGOT) 15 U/L (15-37); Alanine Aminotransfer ALT/SGPT 39 U/L (13-56); Albumin, Serum 3.4 g/dL (3.2-5.0); Alkaline Phosphatase 233 U/L (45-117); Anion Gap 9 (5-15); BUN 13 mg/dL (7-18); Calcium,Total 9.7 mg/dL (8.5-10.1); Chloride 108 mmol/L (98-107); EST Glomerular Filtration Rate 60 mL/min (>60); Est Glom Filt Rate - Afr Amer 73 mL/min (>60); Ferritin 33 ng/mL (8-252); Globulin 3.7 g/dL (2.2-4.2); Glucose 94 mg/dL (74-106); Iron 131 ug/dL (50-170); Iron Binding Capacity,Total 375 ug/dL (250-450); PERCENT IRON SATURATION 34.9 % (15.0-55.0); Potassium 4.3 mmol/L (3.5-5.1); Protein, Total 7.1 g/dL (6.4-8.2); Sodium Level 142 mmol/L (136-145)
[2022-03-08 12:58] LABS: Vitamin D,25 Hydroxy 52.6 ng/mL
== END | disposition home or self-care (01) ==
LOC: BIMLAB 11:17
PROVIDERS: PCP Internal Medicine; Referring Provider Internal Medicine; Visit Provider Internal Medicine
DX: R94.5 Abnormal results of liver function studies (principal); E61.1 Iron deficiency; E55.9 Vitamin D deficiency, unspecified
CPT/HCPCS: 36415; 80053; 82306; 82728; 83540; 83550

== ENCOUNTER → 2022-04-02 | Outpatient (CLI) | payer OTHER, SELFPAY | END | disposition home or self-care (01) | LOC: SL 20:10 | PROVIDERS: PCP Internal Medicine; Referring Provider Internal Medicine; Visit Provider Internal Medicine | DX: G47.10 Hypersomnia, unspecified (principal); R29.818 Other symptoms and signs involving the nervous system | CPT/HCPCS: 95810 ==

== ENCOUNTER → 2022-04-13 | Outpatient (CLI) | payer OTHER, SELFPAY | END | disposition home or self-care (01) | PROVIDERS: PCP Internal Medicine; Visit Provider Physician Assistant Medical | DX: R53.82 Chronic fatigue, unspecified (principal); I49.3 Ventricular premature depolarization | CPT/HCPCS: 93225; 93226 ==

== ENCOUNTER → 2022-04-15 | Outpatient (CLI) | payer OTHER, SELFPAY ==
[2022-04-15 11:23] LABS: Creatinine, Serum 1.04 mg/dL (0.55-1.02); EST Glomerular Filtration Rate 57 mL/min (>60); Est Glom Filt Rate - Afr Amer 69 mL/min (>60)
== END | disposition home or self-care (01) ==
LOC: LAB 10:04
PROVIDERS: PCP Internal Medicine; Referring Provider Orthopaedic Surgery; Visit Provider Orthopaedic Surgery
DX: R22.32 Localized swelling, mass and lump, left upper limb (principal)
CPT/HCPCS: 36415; 82565

== ENCOUNTER → 2022-04-19 | Outpatient (CLI) | payer OTHER, SELFPAY ==
[2022-04-19 15:57] LABS: Absolute Neutrophil Count 2.4 X10^3/uL (2.0-7.7); Basophil# 0.03 X10^3/uL; Basophil% 0.8 % (0-1); Eosinophil# 0.06 X10^3/uL; Eosinophils% 1.6 % (0-5); Hematocrit 42.7 % (37-47); Hemoglobin 13.6 g/dL (12.0-15.0); Lymphocyte % 26.2 % (19-41); Mean Corp Hgb Conc 31.9 g/dL (32-36); Mean Corpuscular Hgb 31.3 pg (27.0-32.0); Mean Corpuscular Volume 98.4 fL (81-99); Mean Platelet Vol. 10.1 fl (6.2-12.0); Monocyte# 0.34 X10^3/uL; Monocyte% 8.9 % (0-10); NRBC Flagged by Analyzer 0 % (0-5); Neutrophil # 2.38 X10^3/uL (2.7-7.7); Neutrophil % 62.2 % (47-70); Platelet Count 177 K/mm3 (150-450); RBC Distribution Width CV 13.4 % (11.6-14.6); RBC Distribution Width SD 49.3 fl (35.1-43.9); Red Blood Count 4.34 M/mm3 (4.2-5.4); White Blood Count 3.8 K/mm3 (4.4-11.0)
[2022-04-19 16:18] LABS: Erythrocyte Sedimentation Rate 3 mm/hr (0-30)
[2022-04-19 16:20] LABS: AST(SGOT) 22 U/L (15-37); Alanine Aminotransfer ALT/SGPT 32 U/L (13-56); Albumin, Serum 3.4 g/dL (3.2-5.0); Alkaline Phosphatase 94 U/L (45-117); Anion Gap 4 (5-15); BUN 20 mg/dL (7-18); BUN/Creat Ratio 21.7 RATIO (10-20); CRP < 2.90 mg/L (0.0-3.0); Calcium,Total 9.2 mg/dL (8.5-10.1); Chloride 112 mmol/L (98-107); Creatinine, Serum 0.92 mg/dL (0.55-1.02); EST Glomerular Filtration Rate 66 mL/min (>60); Est Glom Filt Rate - Afr Amer 80 mL/min (>60); Globulin 3.3 g/dL (2.2-4.2); Glucose 91 mg/dL (74-106); Potassium 4.2 mmol/L (3.5-5.1); Protein, Total 6.7 g/dL (6.4-8.2); Sodium Level 140 mmol/L (136-145)
[2022-04-21 14:09] LABS: Anti-Centromere B Ab <0.2 AI (0.0-0.9); Anti-Chromatin <0.2 AI (0.0-0.9); Anti-Jo <0.2 AI (0.0-0.9); Anti-Scleroderma-70 AB <0.2 AI (0.0-0.9); RNP Ab <0.2 AI (0.0-0.9); SJOGREN'S Anti-SS-A test < 0.2 AI (0.0-0.9); SJOGREN'S Anti-SS-B test < 0.2 AI (0.0-0.9); Smith Ab <0.2 AI (0.0-0.9)
[2022-04-21 18:53] LABS: Anti-dsDNA Ab 29 IU/mL (0-9)
[2022-04-26 13:08] LABS: ANTINUCLEAR ANTIBODIES DIRECT Positive (Negative)
== END | disposition home or self-care (01) ==
LOC: BIMLAB 11:42
PROVIDERS: PCP Internal Medicine; Visit Provider Internal Medicine
DX: R53.82 Chronic fatigue, unspecified (principal)
CPT/HCPCS: 36415; 80053; 85025; 85652; 86038; 86140; 86225; 86235

== ENCOUNTER → 2022-04-27 | Outpatient (CLI) | payer OTHER, SELFPAY ==
[2022-04-27 15:22] LABS: EXAGEN MAILED SPECIMEN
[2022-04-27 17:44] LABS: Absolute Lymphocyte Count 1.31 X10^3/uL (0.83-4.51); Basophil# 0.03 X10^3/uL; Basophil% 0.6 % (0-1); Eosinophil# 0.07 X10^3/uL; Eosinophils% 1.5 % (0-5); Hematocrit 42.4 % (37-47); Hemoglobin 13.8 g/dL (12.0-15.0); Lymphocyte # 1.31 X10^3/ul (0.83-4.51); Lymphocyte % 27.8 % (19-41); Mean Corp Hgb Conc 32.5 g/dL (32-36); Mean Corpuscular Hgb 31.4 pg (27.0-32.0); Mean Corpuscular Volume 96.4 fL (81-99); Mean Platelet Vol. 9.7 fl (6.2-12.0); Monocyte# 0.33 X10^3/uL; NRBC Flagged by Analyzer 0 % (0-5); Neutrophil # 2.97 X10^3/uL (2.7-7.7); Neutrophil % 62.9 % (47-70); Platelet Count 191 K/mm3 (150-450); RBC Distribution Width CV 12.9 % (11.6-14.6); RBC Distribution Width SD 46.7 fl (35.1-43.9); White Blood Count 4.7 K/mm3 (4.4-11.0)
[2022-04-27 17:46] LABS: International Normalized Ratio 1.1; Partial Thromboplast Time 29.5 Seconds (24.1-36.2); Prothrombin Time (Protime)PT. 13.5 SECONDS (11.7-14.9)
[2022-04-27 18:01] LABS: Color, Urine Yellow (Yellow); Glucose, Dipstick Normal (Normal); Ketone-Dipstick Negative (Negative); Leukocyte Esterase-Dipstick 25 /ul (Negative); Nitrite-Dipstick Negative (Negative); Occult Blood-Urine Negative /ul (Negative); Protein-Dipstick Negative (Negative); Urine Bilirubin Dipstick Negative (Negative); Urine Clarity Clear (Clear); Urine Urobilinogen Normal (Normal)
[2022-04-27 18:06] LABS: Protein, Urine (Random) 9.7 mg/dL (<11.9); Protein:Creat Ratio 91 mg/g CRE (0-200)
[2022-04-27 18:18] LABS: ALB/GLOB Ratio 1.2 RATIO (0.9-2.4); AST(SGOT) 21 U/L (15-37); Alanine Aminotransfer ALT/SGPT 28 U/L (13-56); Albumin, Serum 3.7 g/dL (3.2-5.0); Alkaline Phosphatase 94 U/L (45-117); Anion Gap 9 (5-15); BUN 17 mg/dL (7-18); BUN/Creat Ratio 16.8 RATIO (10-20); Chloride 110 mmol/L (98-107); Creatinine, Serum 1.01 mg/dL (0.55-1.02); EST Glomerular Filtration Rate 59 mL/min (>60); Est Glom Filt Rate - Afr Amer 72 mL/min (>60); Globulin 3.1 g/dL (2.2-4.2); Glucose 95 mg/dL (74-106); Potassium 4.1 mmol/L (3.5-5.1); Protein, Total 6.8 g/dL (6.4-8.2); Sodium Level 141 mmol/L (136-145)
[2022-04-27 18:38] LABS: Hepatitis B Surface Antibody Reactive; Hepatitis B Surface Antigen Non-Reactive (Nonreactive); Hepatitis C Antibody Non-Reactive (Nonreactive)
[2022-04-29 19:36] LABS: Thrombin Time 17.8 sec (0.0-23.0)
[2022-04-30 18:07] LABS: Dilute Prothrombin Time (dPT) 44.3 sec (0.0-47.6); Dilute Russell Viper Venom 35.4 sec (0.0-47.0); Hexagonal Phase Phospholipid 5 sec (0-11); PTT-LA 35.5 sec (0.0-43.5); Thrombin Time 18.2 sec (0.0-23.0); dPT Confirm Ratio 1.14 Ratio (0.00-1.34)
[2022-04-30 20:59] LABS: Interpretation Comment: (.)
== END | disposition home or self-care (01) ==
LOC: MTLAB 14:11
PROVIDERS: PCP Internal Medicine; Referring Provider Internal Medicine Rheumatology; Visit Provider Internal Medicine Rheumatology
DX: R76.8 Other specified abnormal immunological findings in serum (principal); M06.4 Inflammatory polyarthropathy; K58.1 Irritable bowel syndrome with constipation
CPT/HCPCS: 36415; 80053; 81002; 82570; 84156; 85025; 85598; 85610; 85670; 85730; 86706; 86803; 87340

== ENCOUNTER 2022-06-02 10:22 | Inpatient (IN) | payer OTHER, SELFPAY ==
[2022-06-02] VITALS (7 sets, daily range): BP systolic 100–121; BP diastolic 53–100; PULSE 97–119; RESP 14–20; TEMP 36.6–37; O2SAT 94–98; BMI 30.2; BMI 30.4
--- NOTE | 2022-06-02 10:44 | EKG12_ITS ---
Test Reason : CP Blood Pressure : / mmHG Vent. Rate : 106 BPM Atrial Rate : 106 BPM P-R Int : 160 ms QRS Dur : 070 ms QT Int : 316 ms P-R-T Axes : 030 014 068 degrees QTc Int : 419 ms Sinus tachycardia Low voltage QRS T wave abnormality, consider anterior ischemia Abnormal ECG Confirmed by JÚNIOR JUNG ([id number]), features editor HAWA CROUCH ([id number]) on 06/08/2022 7:48:22 AM Referred By: Zachery Vanegas Confirmed By:JÚNIOR JUNG
--- NOTE | 2022-06-02 10:55 | RAD_ITS ---
STUDY: X-RAY CHEST REASON FOR EXAM: Female, 62 years old. Chest pain TECHNIQUE: Frontal view of the chest COMPARISON: 01/25/2022 FINDINGS: The lungs are clear. There are no pleural effusions. There is no pneumothorax. The heart is normal in size. The visualized osseous structures are within normal limits. RAD/Chest 1 View (Portable) IMPRESSION: No acute thoracic pathology. Electronically Signed: Joo Melissa MD at 11:09 EDT ,
[2022-06-02 11:03] LABS: Absolute Lymphocyte Count 0.97 X10^3/uL (0.83-4.51); Absolute Neutrophil Count 8.4 X10^3/uL (2.0-7.7); Basophil# 0.02 X10^3/uL; Basophil% 0.2 % (0-1); Eosinophil# 0.04 X10^3/uL; Eosinophils% 0.4 % (0-5); Hematocrit 44.1 % (37-47); Hemoglobin 14.4 g/dL (12.0-15.0); Lymphocyte # 0.97 X10^3/ul (0.83-4.51); Lymphocyte % 9.8 % (19-41); Mean Corp Hgb Conc 32.7 g/dL (32-36); Mean Corpuscular Hgb 31.8 pg (27.0-32.0); Mean Corpuscular Volume 97.4 fL (81-99); Mean Platelet Vol. 10.3 fl (6.2-12.0); Monocyte# 0.41 X10^3/uL; Monocyte% 4.1 % (0-10); NRBC Flagged by Analyzer 0 % (0-5); Neutrophil # 8.43 X10^3/uL (2.7-7.7); Platelet Count 183 K/mm3 (150-450); RBC Distribution Width CV 12.6 % (11.6-14.6); RBC Distribution Width SD 44.5 fl (35.1-43.9); Red Blood Count 4.53 M/mm3 (4.2-5.4); White Blood Count 9.9 K/mm3 (4.4-11.0)
[2022-06-02] MEDS: Ondansetron 4 MG/2 ML Vial IV ×2 (11:07→21:03)
[2022-06-02] MEDS: Morphine 4 MG/ML Syringe IV ×2 (11:07→20:56)
--- NOTE | 2022-06-02 11:12 | EX.ED.DYSGE1 ---
HPI History of Present Illness Chief Complaint: Chest Pain Detail of Chief Complaint: Left chest wall pain with a tender red rash. Informant: patient and family Onset/Context/Timing Onset: Today and Hours Context: Gradual Onset Timing: Continuous Current Severity: Mild Maximum Severity: Mild Narrative Narrative: 62-year-old female history of an inflammatory polyarthropathy and Sjogren's. States she started having left chest wall pain that hurts to touch this morning. Associated nausea. No vomiting. No diarrhea. No fever. She has no history of coronary disease with prior IL. She had a prior heart cath within the last 6 months which showed no blockage according to her. She has never had a DVT or PE. She states she noticed a red rash on her chest wall this morning also. Prior similar symptoms: No Recent Illness/Hospitalization: No PFSH [facility] Medical History Acute postoperative anemia due to expected blood loss Alcohol use Anemia Chronic neck pain Chronic thoracic back pain Diastasis of rectus abdominis Drug-induced pruritus Elective procedure for unacceptable cosmetic appearance Excessive and redundant skin and subcutaneous tissue Excessive body weight loss Family history of breast cancer Fatigue Former smoker Hemorrhoids HLD (hyperlipidemia) Hydronephrosis with urinary obstruction due to renal calculus Intertrigo Irritable bowel syndrome Left ureteral stone Macromastia Migraine headache Restless legs Shoulder pain Tachycardia UTI (urinary tract infection) Wears glasses Home Medications trazodone 100 mg tablet 150 mg PO QHS SLEEP 07/15/20 [History Last Taken 06/01/22] diltiazem HCl 120 mg capsule,extended release 24 hr 120 mg PO DAILY #30 caps 03/05/22 [Rx Last Taken Unknown] escitalopram oxalate 10 mg tablet 10 mg PO QHS 06/02/22 [History Last Taken 06/01/22] folic acid 1 mg tablet 1 mg PO BID supplement 06/02/22 [History Last Taken 3 Days Ago ~05/30/22] linaclotide 72 mcg capsule (Linzess) 72 mcg PO DAILY IRRITABLE BOWELS 06/02/22 [History Last Taken 3 Days Ago ~05/30/22] methotrexate sodium 2.5 mg tablet 12.5 mg PO SA 06/02/22 [History Last Taken 05/29/22] ondansetron 8 mg disintegrating tablet 5 mg PO DAILY NAUSEA 06/02/22 [History Last Taken Unknown] semaglutide (weight loss) 0.25 mg/0.5 mL subcutaneous pen injector 0.25 mg subcut QWEEK 06/02/22 [History Last Taken Unknown] topiramate 25 mg tablet 25 mg PO QHS MOOD 06/02/22 [History Last Taken 06/01/22] Allergy/AdvReac Type Severity Reaction Status Date / Time clindamycin [From Cleocin] Allergy Mild itching Verified 06/02/22 10:25 amoxicillin Allergy Rash Verified 06/02/22 10:25 hydrocodone [From Vicodin] Allergy Rash Verified 06/02/22 10:25 hydromorphone [From Dilaudid] AdvReac Other Verified 06/02/22 10:25 sulfamethoxazole AdvReac Nausea Verified 06/02/22 10:25 [From Bactrim] trimethoprim [From Bactrim] AdvReac Nausea Verified 06/02/22 10:25 Family History Daughter Cancer Thyroid cancer Asthma Father Cancer bone Alcoholism Mother Hypertension Thyroid disorder Dementia CAD (coronary artery disease) Sister Anemia Grandmother Cancer colon, breast Brother Alcoholism Dementia Frontal lobe Other Family history of breast cancer Surgical History History of abdominoplasty History of ear surgery History of left heart catheterization Hx of section Hx of cystoscopy (~11/17/16) Hx of tubal ligation Status post bilateral breast reduction Social History household members: spouse current occupational status: employed and retired 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 Red rash. Review of Systems ROS Unobtainable: Denies due to encephalopathy Constitutional Constitutional ED: Denies chills or fever(s) Eyes Eyes: Denies blurry vision ENT ENT ED: Denies ear pain Cardiovascular Cardiovascular: Reports chest pain Respiratory/Chest Respiratory/Chest: Denies cough or dyspnea Gastrointestinal Gastrointestinal: Reports nausea; Denies abdominal pain, diarrhea or vomiting Genitourinary Genitourinary ED: Denies dysuria or hematuria Musculoskeletal Musculoskeletal: Denies arthralgias Integumentary Denies abscess Neurologic Neurologic: Denies headache(s) Psychiatric Psychiatric: Denies anxiety or depression Hematologic/Lymphatic Hematologic/Lymphatic: Reports none Allergic/Immunologic Allergic/Immunologic ED: Denies mouth swelling or tongue swelling EXAM Physical Exam Narrative Exam Narrative: 8-year-old female no acute distress. Vital signs stable afebrile. Pulse ox 97% room air no signs hypoxia. H EENT exam unremarkable. Neck nontender no JVD. No lymphadenopathy. Lungs clear to auscultation bilaterally. Heart tachycardic rate about 150 no murmur. Chest wall her left lower breast left chest wall and left lateral rib cage has a rectangular area probably 6 inches wide and 8 to 10 inches in length of cellulitis. There is no crepitance or subcu air. There is no necrotic tissue. It is mildly tender to touch. This is cellulitis and not shingles. At this time it does not extend into her back or right chest wall. Abdomen soft nontender. Normal bowel sounds. No peritoneal signs. Moving all 4 extremities. Calves are nontender without edema or cords. Neurologic exam she is awake alert with no focal motor deficits. Const Vital Signs: 06/02/22 10:23 06/02/22 10:32 06/02/22 11:03 Temperature 98.5 F Temperature Source Temporal Pulse Rate 119 H Respiratory Rate 16 Respiratory Effort Normal Non-Labored Blood Pressure 120/100 H Blood Pressure Mean 106 Pulse Ox 97 97 Oxygen Delivery Method Room Air Room Air 06/02/22 11:29 Temperature Temperature Source Pulse Rate 97 Respiratory Rate 14 Respiratory Effort Blood Pressure 110/84 H Blood Pressure Mean 92 Pulse Ox 95 Oxygen Delivery Method Room Air Positive well nourished and well developed; Negative for obese, cachectic, contractures or unkempt General Appearance ED: well developed and NAD; Negative for unkempt, cachectic, contractures, cyanotic, diaphoretic or pallor Nutritional Appearance: Negative for cachectic or obese HEENT Reports moist mucous membranes; Denies dry mucous membranes Negative for trauma or tenderness Mouth ED: No dry mucous membranes Mouth: No dry mucous membranes Eyes PERRL and EOMs intact bilaterally General Eye ED: Negative for pale conjunctiva or scleral icterus Neck no lymphadenopathy, supple and no JVD General: Negative for tenderness Lymph Lymphatic: Negative for other Chest Wall Negative for inspection of chest normal or palpation of chest normal Chest Narrative: Rash consistent with cellulitis left lower chest wall left lower breast and left lateral rib cage. Approximately 6 inches in width and 8 to 10 inches in length. No blisters. No shingles. No crepitance. Chest: Negative for other Resp normal respiratory effort and clear to auscultation bilaterally Effort and Inspection: Negative for retractions Auscultation: Negative for rales, rhonchi or wheezes Cardio regular rhythm, S1 normal heart sound, S2 normal heart sound and no murmurs; Negative for regular rate Rate: tachycardic Rhythm: Negative for abnormal rhythm GI normal to inspection, nondistended, normoactive bowel sounds, non-tender and non-distended Inspection: Negative for abdominal distention Auscultation: normoactive bowel sounds Palpation: soft; Negative for tender or guarding Back/Spine no CVA tenderness General Back: Negative for CVA tenderness Cervical Spine: Negative for cervical spine tenderness Thoracic Spine / Upper Back: Negative for thoracic spinal tenderness Extremity normal to inspection General Extremety ED: Negative for edema or tenderness General Extremity: Negative for edema Neuro oriented x3 and CN's II-XII intact bilaterally Sensorium / Orientation: alert; Negative for orientation impaired Sensory Exam: No sensory level loss detected Motor Exam: strength 5/5 throughout Psych mental status grossly normal Appearance: Negative for unkempt Attitude: No agitated Mood & Affect: Negative for depressed, anxious or tearful Skin No no rashes or lesions noted, no wounds and skin turgor normal General Skin Exam: Negative for jaundice or pallor Lesions: No lesion noted Rashes: rashes noted Trauma: Negative for abrasion Wounds: Negative for wounds noted MDM MDM MDM Narrative Medical decision making narrative: 62-year-old female with a known inflammatory poly arthropathy with cellulitis of her left chest wall. She is allergies to penicillin will be started on IV clindamycin. They had clindamycin listed as allergy but she denies that. And cannot member any problem of her with that medication. We will do screening labs. She initially came in his chest pain even though this is chest wall pain and obvious soft tissue infection. Started on IV clindamycin morphine for pain and Zofran. Repeat exam patient is doing well at 12:40 PM. The rash is more painful. I do not see any necrotic tissue. I do not feel any subcu air. I am obtaining a CAT scan to rule out necrotizing fasciitis which I do not clinically think this is I think it is cellulitis. It is not gotten significantly worse since my initial evaluation of her. She stefanie receive IV clindamycin. I will speak to hospitalist about admission. History & Record Review Discussion w/independent historian: Patient and Family Lab Data Attestation: I reviewed the patient's lab results. Lab results narrative: CBC normal white count 9.9. H&H 14.4 and 44. Platelets 183. Chemistry is unremarkable gap 1. BUN of 12 creatinine 1. Glucose 108. Chest x-ray unremarkable. CT abdomen to evaluate for subcu air is unremarkable. Awaiting radiology formal interpretation. Labs: Laboratory Results - last 24 hr 06/02/22 06/02/22 10:55 10:55 WBC 9.9 RBC 4.53 Hgb 14.4 Hct 44.1 MCV 97.4 MCH 31.8 MCHC 32.7 RDW Std Deviation 44.5 H RDW Coeff of Cathy 12.6 Plt Count 183 MPV 10.3 Immature Gran % (Auto) 0.500 Neut % (Auto) 85.0 H Lymph % (Auto) 9.8 L [place] % (Auto) 4.1 Eos % (Auto) 0.4 Baso % (Auto) 0.2 Absolute Neuts (auto) 8.4 H Absolute Lymphs (auto) 0.97 Nucleated RBC % 0 Sodium 137 Potassium 3.5 Chloride 113 H Carbon Dioxide 23.0 Anion Gap 1 L BUN 12 Creatinine 1.07 H Estim Creat Clear Calc 42.19 Est GFR (MDRD) Af Amer 67 Est GFR (MDRD) Non-Af 56 L BUN/Creatinine Ratio 11.2 Glucose 108 H Calcium 9.4 Radiography Chest X-Ray - ED: 1 View, Read by ED Physician, Normal, Heart, Lungs, Mediastinum, Bony Structures and No Acute Disease Diagnostic Testing: Clinical Impression(s) from Imaging Studies Chest X-Ray 06/02/22 10:55 IMPRESSION: No acute thoracic pathology. Electronically Signed: Joo Melissa MD at 11:09 EDT , Chest x-ray, portable, single view, interpreted by the myself and the radiologist shows no acute abnormality. Normal cardiac silhouette mediastinum. Rhythm Strip Rhythm Strip: Sinus Tach Rate: 106 Ectopy: None EKG Initial EKG: Attestation: I personally reviewed and interpreted this EKG as follows: Interpretation: No Acute Injury Pattern and Sinus Tachycardia Comments: Sinus tachycardia rate of 106 no acute signs of IL or ischemia. Discharge Plan Dx/Rx/DC Orders Clinical Impression: Cellulitis of chest wall, Immunocompromised Disposition Disposition: Acute Care Hospital [facility] [place] [facility]
[2022-06-02 11:16] LABS: Anion Gap 1 (5-15); BUN 12 mg/dL (7-18); BUN/Creat Ratio 11.2 RATIO (10-20); Calcium,Total 9.4 mg/dL (8.5-10.1); Chloride 113 mmol/L (98-107); Creatinine, Serum 1.07 mg/dL (0.55-1.02); EST Glomerular Filtration Rate 56 mL/min (>60); Est Glom Filt Rate - Afr Amer 67 mL/min (>60); Estimated Creatinine Clearance 42.19 ml/min; Glucose 108 mg/dL (74-106); Potassium 3.5 mmol/L (3.5-5.1); Sodium Level 137 mmol/L (136-145)
--- NOTE | 2022-06-02 12:50 | CT_ITS ---
STUDY: CT ABDOMEN WITHOUT CONTRAST REASON FOR EXAM: Female, 62 years old. Abdominal pain and distention RADIATION DOSAGE (If Supplied By Facility): CTDIvol = ( 8.55 ) mGy, DLP = ( 434.60 ) mGycm TECHNIQUE: Transaxial images were obtained without intravenous contrast, and without oral contrast. Sagittal and coronal images were reconstructed. Individualized dose optimization techniques were used for this CT. COMPARISON: 03/02/2022 FINDINGS: The visualized lung bases are unremarkable. The visualized portions of the heart are within normal limits. Liver is unremarkable aside from stable simple cysts. Gallbladder is unremarkable. There is stable nonspecific dilatation of the common bile duct in the head of the pancreas but there is no obstructing stone. Common bile duct measures 7.5 mm in the head of the pancreas. Normal spleen. Normal pancreas. Normal bilateral adrenal glands. Normal right kidney. Normal left kidney. Normal visualized stomach. Normal small intestine. Normal colon. There is non-visualization of the appendix. Normal abdominal aorta. Normal inferior vena cava. Normal retroperitoneum. Normal abdominal wall. Normal osseous structures. CT/Abdomen without IV Contrast IMPRESSION: No suspicious solid organ and amount, simple hepatic cysts, no specific follow-up needed Stable nonspecific extrahepatic common bile duct dilatation at 7.5 mm but no obstructing stone is noted. No free peritoneal fluid, air, or suspicious adenopathy No significant interval change Electronically Signed: Leonardo Wan MD at 13:28 EDT ,
--- NOTE | 2022-06-02 13:06 | NURSING ---
DR STEPH JAMES
--- NOTE | 2022-06-02 13:21 | NURSING ---
MED SURG OLEGHE CHEST WALL CELLULITIS, IMMUNOCOMPROMISED
[2022-06-02] MEDS: morphine 8 MG/ML Syringe 6 MG IV (13:28)
[2022-06-02] MEDS: Clindamycin 900 MG/50 ML BAG 75 MG IV (13:28)
--- NOTE | 2022-06-02 14:10 | HP.PCM_ITS ---
HPI - General General Date of Admission: 06/02/22 Date of Service: 06/02/22 Chief Complaint: Pain, redness and swelling involving the left upper chest and upper abdomen x1 day HPI Narrative MARK ANDERSON, is a 62 F with a history of depression and anxiety, Sjogren's syndrome and inflammatory polyarthropathy for which she was recently started on methotrexate about 2 weeks ago. Presented to the hospital with 1 day history of pain, redness and swelling and exquisite tenderness involving the left lower chest, lower breast and upper abdomen and flank. Patient has a mole in the center of this area which she has been picking and she believes this may have been the inciting event. Denies any fever denies any chills per se. States she always feels cold. Denies any nausea or vomiting. [facility] Medical History Acute postoperative anemia due to expected blood loss Alcohol use Anemia Chronic neck pain Chronic thoracic back pain Diastasis of rectus abdominis Drug-induced pruritus Elective procedure for unacceptable cosmetic appearance Excessive and redundant skin and subcutaneous tissue Excessive body weight loss Family history of breast cancer Fatigue Former smoker Hemorrhoids HLD (hyperlipidemia) Hydronephrosis with urinary obstruction due to renal calculus Intertrigo Irritable bowel syndrome Left ureteral stone Macromastia Migraine headache Restless legs Shoulder pain Tachycardia UTI (urinary tract infection) Wears glasses Home Medications trazodone 100 mg tablet 150 mg PO QHS SLEEP 07/15/20 [History Last Taken 06/01/22] diltiazem HCl 120 mg capsule,extended release 24 hr 120 mg PO DAILY #30 caps 03/05/22 [Rx Last Taken Unknown] escitalopram oxalate 10 mg tablet 10 mg PO QHS 06/02/22 [History Last Taken 06/01/22] folic acid 1 mg tablet 1 mg PO BID supplement 06/02/22 [History Last Taken 3 Days Ago ~05/30/22] linaclotide 72 mcg capsule (Linzess) 72 mcg PO DAILY IRRITABLE BOWELS 06/02/22 [History Last Taken 3 Days Ago ~05/30/22] methotrexate sodium 2.5 mg tablet 12.5 mg PO SA 06/02/22 [History Last Taken 05/29/22] ondansetron 8 mg disintegrating tablet 5 mg PO DAILY NAUSEA 06/02/22 [History Last Taken Unknown] semaglutide (weight loss) 0.25 mg/0.5 mL subcutaneous pen injector 0.25 mg subcut QWEEK 06/02/22 [History Last Taken Unknown] topiramate 25 mg tablet 25 mg PO QHS MOOD 06/02/22 [History Last Taken 06/01/22] Allergy/AdvReac Type Severity Reaction Status Date / Time clindamycin [From Cleocin] Allergy Mild itching Verified 06/02/22 10:25 amoxicillin Allergy Rash Verified 06/02/22 10:25 hydrocodone [From Vicodin] Allergy Rash Verified 06/02/22 10:25 hydromorphone [From Dilaudid] AdvReac Other Verified 06/02/22 14:21 sulfamethoxazole AdvReac Nausea Verified 06/02/22 10:25 [From Bactrim] trimethoprim [From Bactrim] AdvReac Nausea Verified 06/02/22 10:25 Family History Daughter Cancer Thyroid cancer Asthma Father Cancer bone Alcoholism Mother Hypertension Thyroid disorder Dementia CAD (coronary artery disease) Sister Anemia Grandmother Cancer colon, breast Brother Alcoholism Dementia Frontal lobe Other Family history of breast cancer Surgical History History of abdominoplasty History of ear surgery History of left heart catheterization Hx of section Hx of cystoscopy (~11/17/16) Hx of tubal ligation Status post bilateral breast reduction Social History household members: spouse current occupational status: employed and retired 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 Denies any nausea vomiting. All other systems reviewed and essentially negative as above in the part of the history. Vital Signs Vital Signs Vital Signs: 06/02/22 10:23 06/02/22 10:32 06/02/22 11:03 Temperature 36.9 C Temperature Source Temporal Pulse Rate 119 H Respiratory Rate 16 Respiratory Effort Normal Non-Labored Blood Pressure 120/100 H Blood Pressure Mean 106 Pulse Ox 97 97 Oxygen Delivery Method Room Air Room Air 06/02/22 11:29 06/02/22 13:21 Temperature 36.6 C Temperature Source Temporal Pulse Rate 97 98 Respiratory Rate 14 14 Respiratory Effort Blood Pressure 110/84 H 121/61 H Blood Pressure Mean 92 81 Pulse Ox 95 98 Oxygen Delivery Method Room Air Room Air Weight Weight: 72.575 kg Body Mass Index (BMI) 30.2 Physical Exam Narrative General exam. Middle-aged man, acutely ill-appearing, anxious appearing, in painful distress HEENT. Oral mucosa dry, no pallor or jaundice. Neck. Neck Supple. Lungs. Clear to auscultation, nonlabored breathing Heart. First and second heart sounds heard no murmurs. Abdomen. Moves with respiration. Skin. Area of induration, redness, exquisite tenderness and hypersensitivity, swelling and warmth extending from the lower chest and upper abdomen anteriorly and extending to the left flank. [employer]. Conscious alert and oriented x3. Cranial nerves II 12 grossly intact Extremities. No pedal edema. All other organ systems examined and essentially normal. Results Medical Records Data Attestation: I reviewed the patient's medical records Lab / Micro Data Attestation: I reviewed the patient's lab results. Lab results narrative: No leukocytosis noted and all other blood tests largely normal. Result Diagrams: 06/02/22 10:55 06/02/22 10:55 Labs: Laboratory Results - last 24 hr 06/02/22 10:55: WBC 9.9, RBC 4.53, Hgb 14.4, Hct 44.1, MCV 97.4, MCH 31.8, MCHC 32.7, RDW Std Deviation 44.5 H, RDW Coeff of Cathy 12.6, Plt Count 183, MPV 10.3, Immature Gran % (Auto) 0.500, Neut % (Auto) 85.0 H, Lymph % (Auto) 9.8 L, [place] % (Auto) 4.1, Eos % (Auto) 0.4, Baso % (Auto) 0.2, Absolute Neuts (auto) 8.4 H, Absolute Lymphs (auto) 0.97, Nucleated RBC % 0 06/02/22 10:55: Sodium 137, Potassium 3.5, Chloride 113 H, Carbon Dioxide 23.0, Anion Gap 1 L, BUN 12, Creatinine 1.07 H, Estim Creat Clear Calc 42.19, Est GFR (MDRD) Af Amer 67, Est GFR (MDRD) Non-Af 56 L, BUN/Creatinine Ratio 11.2, Glucose 108 H, Calcium 9.4 Rhythm Strip Rhythm Strip: Sinus Tach Rate: 106 Ectopy: None Radiology Impression Chest X-Ray 06/02/22 10:55 IMPRESSION: No acute thoracic pathology. Electronically Signed: Joo Melissa MD at 11:09 EDT , Abdomen CT 06/02/22 12:50 IMPRESSION: No suspicious solid organ and amount, simple hepatic cysts, no specific follow-up needed Stable nonspecific extrahepatic common bile duct dilatation at 7.5 mm but no obstructing stone is noted. No free peritoneal fluid, air, or suspicious adenopathy No significant interval change Electronically Signed: Leonardo Wan MD at 13:28 EDT , Assessment & Plan Assessment/Plan (1) Cellulitis of chest wall: (2) Immunocompromised: PLAN: Plan 1. Chest wall cellulitis. Start on IV antibiotics with IV clindamycin 600 mg every 8 hours and vancomycin 1 g every 12 hours. Multimodal analgesics for optimal pain control. 2. Inflammatory polyarthropathy. Patient on methotrexate for this and so relatively immunocompromised. We will hold methotrexate for now. Can resume after resolution of infection. 3. Anxiety and depression. Continue antidepressant therapy. Charges/Coding Visit Charges Inpatient E&M: 64213 Init Hosp L3
[2022-06-02 14:41] LABS: Erythrocyte Sedimentation Rate 4 mm/hr (0-30)
[2022-06-02 15:10] LABS: CRP < 2.90 mg/L (0.0-3.0)
[2022-06-02] MEDS: Acetaminophen 500 MG Tablet 1000 MG PO ×2 (16:32→21:21)
[2022-06-02] MEDS: Vancomycin IV 1,000 MG/200 ML BAG 200 MG IV (16:33)
[2022-06-02] MEDS: Enoxaparin 40 MG/0.4 ML Syringe SC (16:33)
--- NOTE | 2022-06-02 16:39 | PCM.RX.CS ---
Consult Pharmacy has been consulted to manage selected antiobiotic: Vancomycin Type of Consult: New start Suspected Infection: Skin/Soft tissue Prior Doses of Antibiotics Received/Current Regimen: Received 1gm iv x 1 as initial dose. Labs: Sodium 137 mmol/L (136-145) 06/02/22 10:55 Potassium 3.5 mmol/L (3.5-5.1) 06/02/22 10:55 Chloride 113 mmol/L (98-107) H 06/02/22 10:55 Carbon Dioxide 23.0 mmol/L (21.0-32.0) 06/02/22 10:55 Anion Gap 1 (5-15) L 06/02/22 10:55 BUN 12 mg/dL (7-18) 06/02/22 10:55 Creatinine 1.07 mg/dL (0.55-1.02) H 06/02/22 10:55 Est GFR (MDRD) Af Amer 67 mL/min (>60) 06/02/22 10:55 Est GFR (MDRD) Non-Af 56 mL/min (>60) L 06/02/22 10:55 BUN/Creatinine Ratio 11.2 RATIO (10-20) 06/02/22 10:55 Glucose 108 mg/dL (74-106) H 06/02/22 10:55 Weight used for dosin kg Estimated Creatinine Clearance: ~50 ml/min Goal Trough: 10-15 mcg/mL Pharmacy Plan for Drug Dosing: A calculation of CrCl using adjusted body weight is ~50ml/min. Will start patient on dosing schedule of 750mg iv q12h per policy. Trough level ordered for before 4th total dose. Pharmacy Service will continue to monitor and adjust dosing as required. Follow-Up Labs: Trough Vancomycin - 4.14.23 @0430 before 0500 dose
[2022-06-02] MEDS: Ketorolac 30 MG/ML Syringe IV (16:43)
[2022-06-02] MEDS: 0.9% Saline Lock 10 ML Syringe IV (21:04)
[2022-06-02] MEDS: Topiramate 25 MG Tablet PO (21:20)
[2022-06-02] MEDS: Escitalopram Oxalate 10 MG Tablet PO (21:20)
[2022-06-02] MEDS: traZODone 100 MG Tablet 150 MG PO (21:21)
[2022-06-02] MEDS: Clindamycin 600 MG/50 ML BAG 100 MG IV (22:06)
[2022-06-03] MEDS: Ketorolac 30 MG/ML Syringe IV ×4 (01:46→16:54)
[2022-06-03] MEDS: 0.9% Saline Lock 10 ML Syringe IV ×4 (01:49→16:55)
[2022-06-03 03:20] VITALS: BP 93/50; PULSE 105; RESP 16; TEMP 36.8; O2SAT 97
[2022-06-03] MEDS: Acetaminophen 500 MG Tablet 1000 MG PO ×3 (05:16→21:05)
[2022-06-03 05:51] LABS: Absolute Lymphocyte Count 0.39 X10^3/uL (0.83-4.51); Basophil# 0.01 X10^3/uL; Basophil% 0.2 % (0-1); Hematocrit 38.6 % (37-47); Hemoglobin 12.5 g/dL (12.0-15.0); Lymphocyte # 0.39 X10^3/ul (0.83-4.51); Mean Corp Hgb Conc 32.4 g/dL (32-36); Mean Corpuscular Hgb 32.2 pg (27.0-32.0); Mean Corpuscular Volume 99.5 fL (81-99); Mean Platelet Vol. 10.3 fl (6.2-12.0); Monocyte# 0.13 X10^3/uL; NRBC Flagged by Analyzer 0 % (0-5); Neutrophil # 5.95 X10^3/uL (2.7-7.7); Neutrophil % 91.3 % (47-70); POSITIVE DIFFERENTIAL YES; Platelet Count 121 K/mm3 (150-450); RBC Distribution Width CV 12.7 % (11.6-14.6); RBC Distribution Width SD 46.3 fl (35.1-43.9); Red Blood Count 3.88 M/mm3 (4.2-5.4); White Blood Count 6.5 K/mm3 (4.4-11.0)
[2022-06-03 05:53] LABS: Differential Indicated SCAN CRITERIA MET
[2022-06-03 06:10] LABS: Differential Comment SCANNED
[2022-06-03 06:20] LABS: ALB/GLOB Ratio 0.9 RATIO (0.9-2.4); AST(SGOT) 22 U/L (15-37); Alanine Aminotransfer ALT/SGPT 27 U/L (13-56); Albumin, Serum 2.7 g/dL (3.2-5.0); Alkaline Phosphatase 57 U/L (45-117); Anion Gap 6 (5-15); BUN 16 mg/dL (7-18); BUN/Creat Ratio 11.5 RATIO (10-20); Calcium,Total 8.3 mg/dL (8.5-10.1); Chloride 107 mmol/L (98-107); Creatinine, Serum 1.39 mg/dL (0.55-1.02); EST Glomerular Filtration Rate 41 mL/min (>60); Est Glom Filt Rate - Afr Amer 50 mL/min (>60); Estimated Creatinine Clearance 32.48 ml/min; Globulin 2.9 g/dL (2.2-4.2); Glucose 124 mg/dL (74-106); Potassium 3.3 mmol/L (3.5-5.1); Protein, Total 5.6 g/dL (6.4-8.2); Sodium Level 134 mmol/L (136-145)
[2022-06-03] MEDS: Clindamycin 600 MG/50 ML BAG 100 MG IV (06:43)
--- NOTE | 2022-06-03 07:38 | PCM.RX.CS ---
Consult Type of Consult: Follow-up Suspected Infection: Skin/Soft tissue - chest wall cellulitis Labs: Sodium 134 mmol/L (136-145) L 06/03/22 05:15 Potassium 3.3 mmol/L (3.5-5.1) L 06/03/22 05:15 Chloride 107 mmol/L (98-107) 06/03/22 05:15 Carbon Dioxide 21.0 mmol/L (21.0-32.0) 06/03/22 05:15 Anion Gap 6 (5-15) 06/03/22 05:15 BUN 16 mg/dL (7-18) 06/03/22 05:15 Creatinine 1.39 mg/dL (0.55-1.02) H 06/03/22 05:15 Est GFR (MDRD) Af Amer 50 mL/min (>60) L 06/03/22 05:15 Est GFR (MDRD) Non-Af 41 mL/min (>60) L 06/03/22 05:15 BUN/Creatinine Ratio 11.5 RATIO (10-20) 06/03/22 05:15 Glucose 124 mg/dL (74-106) H 06/03/22 05:15 Goal Trough: 10-15 mcg/mL Pharmacy Plan for Drug Dosing: DAILY ASSESSMENT Current Vancomycin Dose: 750mg Q12H Number of Doses Received: 1000mg x1, 750mg x1 Current Renal Function: sCr 1.39 mg/dL (CrCl 39.3 mL/min using AdjBW 57.9kg) Renal Function Trend: declining Any Change in Vanc Plan: Yes - adjust Vancomycin dosing regimen to 750mg Q24H Pending Level: Vancomycin trough @ 0430 06/05/22 Pharmacy Service will continue to monitor and adjust dosing as required. Labs to be done on [date and time ordered]: Vancomycin trough @ 0430 06/05/22
[2022-06-03 08:40] VITALS: BP 84/47; PULSE 93; RESP 14; TEMP 36.6; O2SAT 96
[2022-06-03] MEDS: LINACLOTIDE 72 MCG CAPSULE PO (08:47)
[2022-06-03] MEDS: Ondansetron 4 MG/2 ML Vial IV (08:48)
[2022-06-03] MEDS: Enoxaparin 40 MG/0.4 ML Syringe SC (08:51)
[2022-06-03] MEDS: Folic Acid 1 MG Tablet PO ×2 (08:51→21:05)
[2022-06-03] MEDS: Potassium Chloride Oral Tablet 20 MEQ PO ×2 (09:11→16:55)
[2022-06-03] MEDS: 0.9% Normal Saline 1,000 ML 125 ML IV ×2 (09:11→16:55)
--- NOTE | 2022-06-03 10:39 | CON.PCM.ID_ITS ---
Assessment & Plan Assessment/Plan (1) Cellulitis of chest wall: PLAN: Seems consistent with erysipelas, concern for strep. Will treat with vanc/ceftriaxone and monitor for cross reaction with PCN allergy. Will follow, thank you, demond primary team (2) Immunocompromised: HPI Consult Data Date of Consult: 06/03/22 HPI Narrative Reason for Consultation: cellulitis HPI Narrative: MARK ANDERSON, is a 62 F on methotrexate for sjogren's and polyarthropathy, presented 06/02 with one day h/o rapidly progressive L chest/abd redness, pain, swelling, and tenderness. No fever or chills. Had been picking at a mole on that side. No prior h/o cellulitis or skin abscess. Came to ED, admitted on vanc/clinda. Some nausea. Some itching. Redness cont to spread this AM. Reports hives with PCN and amox. Full ROS performed and neg except as noted above. [facility] Medical History Acute postoperative anemia due to expected blood loss Alcohol use Anemia Anxiety Chest pain Chronic neck pain Chronic thoracic back pain Diastasis of rectus abdominis Drug-induced pruritus Elective procedure for unacceptable cosmetic appearance Excessive and redundant skin and subcutaneous tissue Excessive body weight loss Family history of breast cancer Fatigue Former smoker Hemorrhoids HLD (hyperlipidemia) Hydronephrosis with urinary obstruction due to renal calculus Intertrigo Irritable bowel syndrome Kidney stones Left ureteral stone Macromastia Migraine headache Restless legs Shoulder pain Tachycardia UTI (urinary tract infection) Wears glasses Home Medications trazodone 100 mg tablet 150 mg PO QHS SLEEP 07/15/20 [History Last Taken 06/01/22] diltiazem HCl 120 mg capsule,extended release 24 hr 120 mg PO DAILY #30 caps 03/05/22 [Rx Last Taken Unknown] escitalopram oxalate 10 mg tablet 10 mg PO QHS 06/02/22 [History Last Taken 06/01/22] folic acid 1 mg tablet 1 mg PO BID supplement 06/02/22 [History Last Taken 3 Days Ago ~05/30/22] linaclotide 72 mcg capsule (Linzess) 72 mcg PO DAILY IRRITABLE BOWELS 06/02/22 [History Last Taken 3 Days Ago ~05/30/22] methotrexate sodium 2.5 mg tablet 12.5 mg PO SA 06/02/22 [History Last Taken 05/29/22] ondansetron 8 mg disintegrating tablet 5 mg PO DAILY NAUSEA 06/02/22 [History Last Taken Unknown] semaglutide (weight loss) 0.25 mg/0.5 mL subcutaneous pen injector 0.25 mg subcut QWEEK 06/02/22 [History Last Taken Unknown] topiramate 25 mg tablet 25 mg PO QHS MOOD 06/02/22 [History Last Taken 06/01/22] Allergy/AdvReac Type Severity Reaction Status Date / Time clindamycin [From Cleocin] Allergy Mild itching Verified 06/02/22 10:25 amoxicillin Allergy Rash Verified 06/02/22 10:25 hydrocodone [From Vicodin] Allergy Rash Verified 06/02/22 10:25 hydromorphone [From Dilaudid] AdvReac Other Verified 06/02/22 14:21 sulfamethoxazole AdvReac Nausea Verified 06/02/22 10:25 [From Bactrim] trimethoprim [From Bactrim] AdvReac Nausea Verified 06/02/22 10:25 Family History Daughter Cancer Thyroid cancer Asthma Father Cancer bone Alcoholism Mother Hypertension Thyroid disorder Dementia CAD (coronary artery disease) Sister Anemia Grandmother Cancer colon, breast Brother Alcoholism Dementia Frontal lobe Other Family history of breast cancer Surgical History History of abdominoplasty History of ear surgery History of left heart catheterization Hx of section Hx of cystoscopy (~11/17/16) Hx of tubal ligation Status post bilateral breast reduction Social History household members: spouse current occupational status: employed and retired 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, 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 Smoking Status: Former smoker quit date: 02/21/89 pack-years: 20 Electronic Cigarette Use: not used second hand exposure: No alcohol intake: former details: never a heavy drinker substance use type: does not use caffeine: No what type of physical activity do you participate in: none frequency: does not exercise seatbelt use: always do you feel safe at home: Yes additional social history: Does Not take Aspirin Does take Ibuprofen as needed Physical Exam Const alert, oriented x3 and no apparent distress General Appearance: cooperative HEENT normocephalic and head/scalp atraumatic Eyes PERRL and EOMs intact bilaterally Neck supple and No nodes Resp normal air movement and clear to auscultation bilaterally Cardio regular rate and regular rhythm GI soft to palpation, non-tender and non-distended Extremity General Extremity: Negative for edema Skin Skin Narrative: L chest/abd/flank raised mildly tender and warmth erythema Neuro CN's II-XII intact bilaterally Lab / Micro Data Attestation: I reviewed the patient's lab results. Result Diagrams: 06/03/22 05:15 06/03/22 05:15 Labs: Laboratory Results - last 24 hr 06/02/22 10:55: WBC 9.9, RBC 4.53, Hgb 14.4, Hct 44.1, MCV 97.4, MCH 31.8, MCHC 32.7, RDW Std Deviation 44.5 H, RDW Coeff of Cathy 12.6, Plt Count 183, MPV 10.3, Immature Gran % (Auto) 0.500, Neut % (Auto) 85.0 H, Lymph % (Auto) 9.8 L, Eddy % (Auto) 4.1, Eos % (Auto) 0.4, Baso % (Auto) 0.2, Absolute Neuts (auto) 8.4 H, Absolute Lymphs (auto) 0.97, Nucleated RBC % 0 06/02/22 10:55: Sodium 137, Potassium 3.5, Chloride 113 H, Carbon Dioxide 23.0, Anion Gap 1 L, BUN 12, Creatinine 1.07 H, Estim Creat Clear Calc 42.19, Est GFR (MDRD) Af Amer 67, Est GFR (MDRD) Non-Af 56 L, BUN/Creatinine Ratio 11.2, Glucose 108 H, Calcium 9.4 06/02/22 10:55: ESR 4 06/02/22 10:55: C-React Prot Ext Range < 2.90 06/03/22 05:15: WBC 6.5, RBC 3.88 L, Hgb 12.5, Hct 38.6, MCV 99.5 H, MCH 32.2 H, MCHC 32.4, RDW Std Deviation 46.3 H, RDW Coeff of Cathy 12.7, Plt Count 121 L, MPV 10.3, Immature Gran % (Auto) 0.500, Neut % (Auto) 91.3 H, Lymph % (Auto) 6.0 L, Eddy % (Auto) 2.0, Eos % (Auto) 0.0, Baso % (Auto) 0.2, Absolute Neuts (auto) 6.0, Absolute Lymphs (auto) 0.39 L, Nucleated RBC % 0, Differential Comment SCANNED 06/03/22 05:15: Sodium 134 L, Potassium 3.3 L, Chloride 107, Carbon Dioxide 21.0, Anion Gap 6, BUN 16, Creatinine 1.39 H, Estim Creat Clear Calc 32.48, Est GFR (MDRD) Af Amer 50 L, Est GFR (MDRD) Non-Af 41 L, BUN/Creatinine Ratio 11.5, Glucose 124 H, Calcium 8.3 L, Total Bilirubin 0.50, AST 22, ALT 27, Alkaline Phosphatase 57, Total Protein 5.6 L, Albumin 2.7 L, Globulin 2.9, Albumin/Globulin Ratio 0.9 Rhythm Strip Rhythm Strip: Sinus Tach Rate: 106 Ectopy: None Radiology Impression Chest X-Ray 06/02/22 10:55 IMPRESSION: No acute thoracic pathology. Electronically Signed: Joo Melissa MD at 11:09 EDT , Abdomen CT 06/02/22 12:50 IMPRESSION: No suspicious solid organ and amount, simple hepatic cysts, no specific follow-up needed Stable nonspecific extrahepatic common bile duct dilatation at 7.5 mm but no obstructing stone is noted. No free peritoneal fluid, air, or suspicious adenopathy No significant interval change Electronically Signed: Leonardo Wan MD at 13:28 EDT ,
[2022-06-03 12:35] VITALS: BP 88/52; PULSE 86; RESP 14; TEMP 36.6; O2SAT 95
--- NOTE | 2022-06-03 15:55 | CASEMGMT ---
RN?CM?WEAPONS OFFICER?CM?to room to meet with patient for initial transition planning/care coordination?assessment.?RN?CM?introduced self and role at [facility].? Pt voices understanding and consents to?assessment?at this time.? Pt resting in bed. Pt c/o headache and lights are dimmed in room. Pt is A/O at this time and answers all questions appropriately.?? Care providers, pharmacy, and demographics verified/updated at this time. PCP: Dr Mcfarlane Specialists:Dr Costello-directional drill operator, [facility]/cardiology Preferred Pharmacy: [facility] Retail Insurance:MMO Prescription Benefit:?Yes Living Will/HPOA:?Pt states she does not think she has done LW, but has done a HCPOA, who is her and then dtr, Natasha, is 1st alternative. LNOK: , Devaughn. 2 dtrs. Living Arrangements: Lives w/her in split-level home w/4 steps to enter. Pt denies difficulty w/stairs. Indep. Transportation:?Pt states drives self and states no transportation concerns at this time.? also drives. DME: ? Denies using any DME and denies needs.? HHC/SNF: No hx of either. No needs identified. Pt denies need for HHC or OP therapy. Pt wishes to return home and states has no concerns with going home at time of discharge.? CM?to follow for home oxygen needs and any discharge planning/needs.? Pt voices no concerns/needs at this time.? Advised pt to ask for?CM?if any questions/concerns/needs arise.? Voices understanding. PLAN:??Home Pranav JEANN?RN?CM
[2022-06-03 16:50] VITALS: BP 100/54; PULSE 99; RESP 16; TEMP 37.3; O2SAT 97
--- NOTE | 2022-06-03 19:02 | PN.HOSP_ITS ---
Reason for Visit Reason for Visit: Diagnoses Immunodeficiency, unspecified (06/02/22) Cellulitis of chest wall (06/02/22) Subjective Subjective Patient was seen and examined today, I had infectious diseases see the patient today for evaluation of her antibiotic coverage, I talked briefly with infectious diseases and they took the patient off clindamycin. The area under the patient's left breast remains reddened and indurated at this time. Objective Data Objective Data Vital Signs: Vital Signs Temp Pulse Resp BP Pulse Ox O2 Del Method 99.1 F 99 16 100/54 L 97 Room Air 06/03/22 16:50 06/03/22 16:50 06/03/22 16:50 06/03/22 16:50 06/03/22 16:50 06/03/22 16:50 Oxygen Delivery Method Room Air Weight: 73.043 kg Body Mass Index (BMI) 30.4 Intake & Output: Intake and Output for Last 24 Hours 06/01/22 06/02/22 06/03/22 23:59 23:59 23:59 Intake Total 675 / 675 2707.91 / 2707.91 Balance 675 / 675 2707.91 / 2707.91 Lab / Micro Data Result Diagrams: 06/03/22 05:15 06/03/22 05:15 Labs: Laboratory Results - last 24 hr 06/03/22 05:15: WBC 6.5, RBC 3.88 L, Hgb 12.5, Hct 38.6, MCV 99.5 H, MCH 32.2 H, MCHC 32.4, RDW Std Deviation 46.3 H, RDW Coeff of Cathy 12.7, Plt Count 121 L, MPV 10.3, Immature Gran % (Auto) 0.500, Neut % (Auto) 91.3 H, Lymph % (Auto) 6.0 L, [place] % (Auto) 2.0, Eos % (Auto) 0.0, Baso % (Auto) 0.2, Absolute Neuts (auto) 6.0, Absolute Lymphs (auto) 0.39 L, Nucleated RBC % 0, Differential Comment SCANNED 06/03/22 05:15: Sodium 134 L, Potassium 3.3 L, Chloride 107, Carbon Dioxide 21.0, Anion Gap 6, BUN 16, Creatinine 1.39 H, Estim Creat Clear Calc 32.48, Est GFR (MDRD) Af Amer 50 L, Est GFR (MDRD) Non-Af 41 L, BUN/Creatinine Ratio 11.5, Glucose 124 H, Calcium 8.3 L, Total Bilirubin 0.50, AST 22, ALT 27, Alkaline Phosphatase 57, Total Protein 5.6 L, Albumin 2.7 L, Globulin 2.9, Albumin/Globulin Ratio 0.9 Rhythm Strip Rhythm Strip: Sinus Tach Rate: 106 Ectopy: None Physical Exam Const alert, oriented x3, no apparent distress, average body habitus and healthy appearing General Appearance: cooperative, well kempt and well developed Orientation / Consciousness: awake, oriented to person, oriented to place and oriented to time HEENT normocephalic, head/scalp atraumatic and moist oral mucous membranes Eyes PERRL, EOMs intact bilaterally and conjunctivae normal Neck supple, no JVD, thyroid normal and no carotid bruits General: trachea midline Resp normal respiratory effort and clear to auscultation bilaterally Auscultation: Negative for rales, rhonchi or wheezes Cardio regular rate, regular rhythm, no murmurs, no rub and no gallops GI normal to inspection, nondistended, normoactive bowel sounds, soft to palpation, non-tender and non-distended Extremity no clubbing, cyanosis or edema Skin Skin Narrative: The area under the patient's left breast area is indurated and reddened, this area is extensive and is several centimeters in diameter by several centimeters in width, there is a small break in the skin over the midportion of this area, there is no visible purulent drainage however. Neuro oriented x3, CN's II-XII intact bilaterally, moves all extremities, no focal motor deficits and no sensory deficits noted Sensorium / Orientation: awake, alert, oriented to person, oriented to place and oriented to time Speech: speech normal Psych affect normal Assessment & Plan Assessment/Plan (1) Cellulitis of chest wall: PLAN: Plan 1. Cellulitis of the left chest wall-antibiotic coverage per infectious diseases at this time #2 essential hypertension-patient will remain on her current medications #3 chronic depression-patient will remain on Lexapro #4 connective tissue disease-patient states she sees a website designer for Sjogren's syndrome and polyarthropathy, she takes methotrexate, this is being held at this time Total clinical time spent by myself addressing the patient's medical problems, reviewing all of her data, and collaborating with patient's care team: 35 minutes Charges/Coding Visit Charges Inpatient E&M: 55915 Subs Hosp L2
[2022-06-03 21:00] VITALS: BP 102/60; PULSE 80; RESP 16; TEMP 36.7; O2SAT 96
[2022-06-03] MEDS: traZODone 50 MG Tablet 150 MG PO (21:04)
[2022-06-03] MEDS: Escitalopram Oxalate 10 MG Tablet PO (21:05)
[2022-06-03] MEDS: Topiramate 25 MG Tablet PO (21:05)
[2022-06-03 22:21] VITALS: BP 104/60
[2022-06-03] MEDS: Morphine 4 MG/ML Syringe IV (22:22)
[2022-06-04 00:31] VITALS: BP 114/63; PULSE 96; RESP 16; TEMP 36.7; O2SAT 93
[2022-06-04] MEDS: Ketorolac 30 MG/ML Syringe IV ×5 (00:32→23:50)
[2022-06-04] MEDS: 0.9% Normal Saline 1,000 ML 125 ML IV ×3 (00:33→20:18)
[2022-06-04 05:46] VITALS: BP 119/61; PULSE 96; RESP 16; TEMP 36.7; O2SAT 93
[2022-06-04] MEDS: Acetaminophen 500 MG Tablet 1000 MG PO ×3 (05:54→22:35)
[2022-06-04] MEDS: Potassium Chloride Oral Tablet 20 MEQ PO ×2 (08:03→17:00)
[2022-06-04] MEDS: Folic Acid 1 MG Tablet PO ×2 (08:04→22:35)
[2022-06-04] MEDS: LINACLOTIDE 72 MCG CAPSULE PO (08:04)
[2022-06-04] MEDS: Ondansetron 4 MG/2 ML Vial IV ×2 (08:06→22:39)
[2022-06-04 08:23] VITALS: BP 98/61; PULSE 96; RESP 18; TEMP 36.6; O2SAT 96
[2022-06-04] MEDS: Enoxaparin 40 MG/0.4 ML Syringe SC (10:39)
[2022-06-04 12:00] VITALS: BP 96/55; PULSE 85; RESP 18; TEMP 36.8; O2SAT 95
[2022-06-04] MEDS: DiphenhydrAMINE 25 MG Capsule PO (12:50)
--- NOTE | 2022-06-04 13:17 | PCM.PN.ID ---
Physical Exam Narrative Feeling a little better, no fever, no nausea, chest less sore. Some mild itching. Const alert and no apparent distress Resp normal air movement and clear to auscultation bilaterally Cardio regular rate and regular rhythm GI soft to palpation, non-tender and non-distended Skin Skin Narrative: L chest and abd erythema no longer spreading, less raised ID ID: Route of nutrition/ use of supplements: [] Nutritional Intake: [] IV Site: [] Andrews Catheter: [] Assessment & Plan Assessment/Plan (1) Cellulitis of chest wall: PLAN: Seems consistent with erysipelas, concern for strep. Cont with vanc/ceftriaxone and monitor for cross reaction with PCN allergy. Will follow (2) Immunocompromised:
[2022-06-04 16:53] VITALS: BP 108/59; PULSE 83; RESP 18; TEMP 36.8; O2SAT 97
--- NOTE | 2022-06-04 20:02 | PCM.PN.HOSP ---
Reason for Visit Reason for Visit: Diagnoses Immunodeficiency, unspecified (06/02/22) Cellulitis of chest wall (06/02/22) Subjective Subjective Patient was seen and examined today, her left chest wall is still reddened and indurated, she remains on IV antibiotics at this time. Infectious diseases feels that her presentation is consistent with erysipelas. Objective Data Objective Data Vital Signs: Vital Signs Temp Pulse Resp BP Pulse Ox O2 Del Method 98.2 F 83 18 108/59 L 97 Room Air 06/04/22 16:53 06/04/22 16:53 06/04/22 16:53 06/04/22 16:53 06/04/22 16:53 06/04/22 16:53 Oxygen Delivery Method Room Air Weight: 73.043 kg Body Mass Index (BMI) 30.4 Intake & Output: Intake and Output for Last 24 Hours 06/02/22 06/03/22 06/04/22 23:59 23:59 23:59 Intake Total 675 / 675 2707.91 / 2707.91 2269.17 / 2269.17 Balance 675 / 675 2707.91 / 2707.91 2269.17 / 2269.17 Lab / Micro Data Result Diagrams: 06/03/22 05:15 06/03/22 05:15 Rhythm Strip Rhythm Strip: Sinus Tach Rate: 106 Ectopy: None Physical Exam Narrative alert, oriented x3, no apparent distress, average body habitus and healthy appearing General Appearance: cooperative, well kempt and well developed Orientation / Consciousness: awake, oriented to person, oriented to place and oriented to time HEENT normocephalic, head/scalp atraumatic and moist oral mucous membranes Eyes PERRL, EOMs intact bilaterally and conjunctivae normal Neck supple, no JVD, thyroid normal and no carotid bruits General: trachea midline Resp normal respiratory effort and clear to auscultation bilaterally Auscultation: Negative for rales, rhonchi or wheezes Cardio regular rate, regular rhythm, no murmurs, no rub and no gallops GI normal to inspection, nondistended, normoactive bowel sounds, soft to palpation, non-tender and non-distended Extremity no clubbing, cyanosis or edema Skin Skin Narrative: The area under the patient's left breast area is indurated and reddened, this area is extensive and is several centimeters in diameter by several centimeters in width, there is a small break in the skin over the midportion of this area, there is no visible purulent drainage however. Neuro oriented x3, CN's II-XII intact bilaterally, moves all extremities, no focal motor deficits and no sensory deficits noted Sensorium / Orientation: awake, alert, oriented to person, oriented to place and oriented to time Speech: speech normal Psych affect normal Assessment & Plan Assessment/Plan (1) Cellulitis of chest wall: (2) Immunocompromised: PLAN: Plan 1. Cellulitis of the left chest wall-antibiotic coverage per infectious diseases at this time #2 essential hypertension-patient will remain on her current medications #3 chronic depression-patient will remain on Lexapro #4 connective tissue disease-patient states she sees a field mechanical meter tester for Sjogren's syndrome and polyarthropathy, she takes methotrexate, this is being held at this time Total clinical time spent by myself addressing the patient's medical problems, reviewing all of her data, and collaborating with patient's care team: 25 minutes Charges/Coding Visit Charges Inpatient E&M: 43489 Subs Hosp L1
[2022-06-04] MEDS: Topiramate 25 MG Tablet PO (22:35)
[2022-06-04] MEDS: Escitalopram Oxalate 10 MG Tablet PO (22:35)
[2022-06-04] MEDS: traZODone 50 MG Tablet 150 MG PO (22:36)
[2022-06-04] MEDS: 0.9% Saline Lock 10 ML Syringe IV (22:39)
[2022-06-04 22:42] VITALS: BP 130/84; PULSE 88; RESP 18; TEMP 36.4; O2SAT 98
[2022-06-05 03:51] VITALS: BP 116/63; PULSE 84; RESP 18; TEMP 37.1; O2SAT 97
[2022-06-05] MEDS: 0.9% Normal Saline 1,000 ML 125 ML IV (04:31)
[2022-06-05 05:44] LABS: Vancomycin, Trough Level 5.7 ug/mL (5.0-15.0)
[2022-06-05] MEDS: Ketorolac 30 MG/ML Syringe IV (05:48)
[2022-06-05] MEDS: Acetaminophen 500 MG Tablet 1000 MG PO (05:51)
--- NOTE | 2022-06-05 06:00 | PCM.RX.CS ---
Consult Pharmacy has been consulted to manage selected antiobiotic: Vancomycin Type of Consult: Follow-up Suspected Infection: Skin/Soft tissue Prior Doses of Antibiotics Received/Current Regimen: Medications Vancomycin HCl 750 mg/ Sodium (Chloride) 265 mls @ 250 mls/hr IV Q24H [facility] Stop: 06/05/22 07:00 Last Admin: 06/05/22 05:49 Dose: 250 mls/hr Vancomycin HCl 750 mg/ Sodium (Chloride) 265 mls @ 250 mls/hr IV Q12H [facility] Labs: Sodium 134 mmol/L (136-145) L 06/03/22 05:15 Potassium 3.3 mmol/L (3.5-5.1) L 06/03/22 05:15 Chloride 107 mmol/L (98-107) 06/03/22 05:15 Carbon Dioxide 21.0 mmol/L (21.0-32.0) 06/03/22 05:15 Anion Gap 6 (5-15) 06/03/22 05:15 BUN 16 mg/dL (7-18) 06/03/22 05:15 Creatinine 1.39 mg/dL (0.55-1.02) H 06/03/22 05:15 Est GFR (MDRD) Af Amer 50 mL/min (>60) L 06/03/22 05:15 Est GFR (MDRD) Non-Af 41 mL/min (>60) L 06/03/22 05:15 BUN/Creatinine Ratio 11.5 RATIO (10-20) 06/03/22 05:15 Glucose 124 mg/dL (74-106) H 06/03/22 05:15 Vancomycin Trough 5.7 ug/mL (5.0-15.0) 06/05/22 04:52 Weight used for dosin kg Estimated Creatinine Clearance: 39 Goal Trough: 10-15 mcg/mL Pharmacy Plan for Drug Dosing: Vancomycin trough level, drawn 23 hours post-dose, was low at 5.7. Target range is 10-15. Per dosing calculator, a new dose of 750mg q12h will give an estimated trough of 15.8. Will draw another level prior to 4th dose of new regimen. Pharmacy Service will continue to monitor and adjust dosing as required. Follow-Up Labs: Trough Vancomycin Labs to be done on [date and time ordered]: 06/06/22 @0162
[2022-06-05] MEDS: Ondansetron 4 MG/2 ML Vial IV (09:36)
[2022-06-05] MEDS: Magnesium Hydroxide 30 ML UDC PO (09:37)
[2022-06-05] MEDS: Potassium Chloride Oral Tablet 20 MEQ PO (09:39)
[2022-06-05] MEDS: Enoxaparin 40 MG/0.4 ML Syringe SC (09:39)
[2022-06-05] MEDS: LINACLOTIDE 72 MCG CAPSULE PO (09:39)
[2022-06-05] MEDS: Folic Acid 1 MG Tablet PO (09:39)
[2022-06-05 09:50] VITALS: BP 105/79; PULSE 67; RESP 14; TEMP 36.6; O2SAT 98
--- NOTE | 2022-06-05 10:30 | NURSING ---
0600 dose of Vancomycin scanned at 0549 by HS RN. Medication spiked but clamp locked so medication did not infuse. This RN instructed by pharmacist to infuse medication at this time. Medication infusing at 1030.
--- NOTE | 2022-06-05 13:43 | DCINST_ITS ---
Discharge Instructions Diet Discharge Diet: No restrictions Activity Discharge Activity: Return to Normal Activity Weight Bearing Status: Full weight bearing Follow Up Care Test Results: Test results from this visit will be discussed in further detail at your follow- up appointment, if applicable. Discharge Plan Admission Admit Date/Time: 06/02/22 19:25 Primary Reason for Your Visit: cellulitis Attending Provider: Peterson Cordoba Primary Care Provider: Jayla Mcfarlane Consulting Providers: Quiana Dodd ; Herb Valenzuela Discharge Orders/Prescriptions Prescriptions: New cephalexin 500 mg capsule 500 mg PO Q8H Qty: 21 0RF Rx Instructions: start 06/06/22 prochlorperazine maleate [Compazine] 5 mg tablet 5 mg PO TID PRN (Reason: nausea and vomiting) Qty: 20 0RF Rx Instructions: one or two three times a day as needed for nausea Continued trazodone 100 mg Tablet 150 mg PO QHS ondansetron 8 mg tablet,disintegrating 5 mg PO DAILY folic acid 1 mg tablet 1 mg PO BID topiramate 25 mg tablet 25 mg PO QHS escitalopram oxalate 10 mg tablet 10 mg PO QHS Linzess 72 mcg capsule 72 mcg PO DAILY semaglutide (weight loss) 0.25 mg/0.5 mL Pen Injector 0.25 mg SUBCUT QWEEK Rx Instructions: administer weeks 1 through 4 of therapy diltiazem HCl 120 mg capsule,extended release 24hr 120 mg PO DAILY Qty: 30 6RF Held methotrexate sodium 2.5 mg tablet 12.5 mg PO SA Hold Instructions: hold for one more week Referrals / Follow Up: Jayla Mcfarlane MD [Primary Care Provider] - In 1 Week Disposition Disposition (needs filled in before D/C Order can be placed): Home, Self Care
--- NOTE | 2022-06-05 13:59 | DS.PCM_ITS ---
Providers Date of Admission: 06/02/22 Date of Discharge: 06/05/22 Primary Care Physician: Dr. Jayla Mcfarlane MD Consultations 06/03/22 08:46 Consult: Infectious Disease Routine Consulting Provider: Herb Valenzuela Reason for Consult: cellulitis and multiple allergies to atb EMERGENT Consult: No MD Notified: Yes Date Notified: 06/03/22 Time Notified: 08:46 Method of Notification: Text Reason For Visit: CELLULITIS Diagnosis Discharge Diagnosis (1) Cellulitis of chest wall: Status: Acute Code(s): L03.313 - Cellulitis of chest wall (2) Immunocompromised: Status: Acute Code(s): D84.9 - Immunodeficiency, unspecified Plan 1. 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 for Sjogren's syndrome and polyarthropathy, she takes methotrexate, this is being held at this time Total clinical time spent by myself addressing the patient's medical problems, reviewing all of her data, and collaborating with patient's care team: 35 minutes Medications at Discharge Home Medications trazodone 100 mg tablet 150 mg PO QHS SLEEP 07/15/20 escitalopram oxalate 10 mg tablet 10 mg PO QHS 06/02/22 folic acid 1 mg tablet 1 mg PO BID supplement 06/02/22 linaclotide 72 mcg capsule (Linzess) 72 mcg PO DAILY IRRITABLE BOWELS 06/02/22 methotrexate sodium 2.5 mg tablet 12.5 mg PO SA 06/02/22 ondansetron 8 mg disintegrating tablet 5 mg PO DAILY NAUSEA 06/02/22 semaglutide (weight loss) 0.25 mg/0.5 mL subcutaneous pen injector 0.25 mg subcut QWEEK 06/02/22 topiramate 25 mg tablet 25 mg PO QHS MOOD 06/02/22 cephalexin 500 mg capsule 500 mg PO Q8H #21 caps 06/05/22 prochlorperazine maleate 5 mg tablet (Compazine) 5 mg PO TID PRN nausea and vomiting #20 tabs 06/05/22 diltiazem HCl 120 mg capsule,extended release 24 hr 120 mg PO DAILY #90 caps 06/07/22 Hospital Course Operations None Procedures None Summary of Care Provided Minutes Spent on Discharge: 31 Hospital Course: Patient was seen in the emergency room at [facility] with a chief complaint of redness and induration of her skin over the left side of her chest wall extending around to her left mid back area. Labs obtained on the patient showed a normal white blood cell count, chemistry profile was remarkable for creatinine 1.07. Patient was admitted to PCU, she was placed on IV antibiotics and seen in consultation by infectious diseases, they recommended antibiotic changes, patient improved during her hospitalization. On 06/05/2022, patient was seen and examined:alert, oriented x3, no apparent distress, average body habitus and healthy appearing General Appearance: cooperative, well kempt and well developed Orientation / Consciousness: awake, oriented to person, oriented to place and oriented to time HEENT normocephalic, head/scalp atraumatic and moist oral mucous membranes Eyes PERRL, EOMs intact bilaterally and conjunctivae normal Neck supple, no JVD, thyroid normal and no carotid bruits General: trachea midline Resp normal respiratory effort and clear to auscultation bilaterally Auscultation: Negative for rales, rhonchi or wheezes Cardio regular rate, regular rhythm, no murmurs, no rub and no gallops GI normal to inspection, nondistended, normoactive bowel sounds, soft to palpation, non-tender and non-distended Extremity no clubbing, cyanosis or edema Skin Skin Narrative: The area under the patient's left breast area is indurated and reddened, this area is extensive and is several centimeters in diameter by several centimeters in width, there is a small break in the skin over the midportion of this area, there is no visible purulent drainage however. Neuro oriented x3, CN's II-XII intact bilaterally, moves all extremities, no focal motor deficits and no sensory deficits noted Sensorium / Orientation: awake, alert, oriented to person, oriented to place and oriented to time Speech: speech normal Psych affect normal Patient was felt to be stable for discharge home on 06/05/2022 Weight / BMI Weight Weight: 73.043 kg Body Mass Index (BMI) 30.4 ABG / Lab / Microbiology Data Result Diagrams: 06/03/22 05:15 06/03/22 05:15 Laboratory: Laboratory Results - last 24 hr 04/15/23 04:52: Vancomycin Trough 5.7 D/C Instructions Discharge Diet: No restrictions Weight Bearing Status: Full weight bearing Meaningful Use Info Meaningful Use Diagnoses (Choose all that apply): None applicable Discharge Plan Admission Admit Date/Time: 06/02/22 19:25 Primary Reason for Your Visit: cellulitis Attending Provider: Peterson Cordoba Primary Care Provider: Jayla Mcfarlane Consulting Providers: Quiana Dodd ; Herb Valenzuela Discharge Orders/Prescriptions Prescriptions: New cephalexin 500 mg capsule 500 mg PO Q8H Qty: 21 0RF Rx Instructions: start 06/06/22 prochlorperazine maleate [Compazine] 5 mg tablet 5 mg PO TID PRN (Reason: nausea and vomiting) Qty: 20 0RF Rx Instructions: one or two three times a day as needed for nausea Continued trazodone 100 mg Tablet 150 mg PO QHS ondansetron 8 mg tablet,disintegrating 5 mg PO DAILY folic acid 1 mg tablet 1 mg PO BID topiramate 25 mg tablet 25 mg PO QHS escitalopram oxalate 10 mg tablet 10 mg PO QHS Linzess 72 mcg capsule 72 mcg PO DAILY semaglutide (weight loss) 0.25 mg/0.5 mL Pen Injector 0.25 mg SUBCUT QWEEK Rx Instructions: administer weeks 1 through 4 of therapy Held methotrexate sodium 2.5 mg tablet 12.5 mg PO SA Hold Instructions: hold for one more week No Action diltiazem HCl 120 mg capsule,extended release 24hr 120 mg PO DAILY Qty: 90 3RF Referrals / Follow Up: Jayla Mcfarlane MD [Primary Care Provider] - In 1 Week Disposition Disposition (needs filled in before D/C Order can be placed): Home, Self Care Charges/Coding Visit Charges Inpatient E&M: 95296 Disch Hosp >30min
[2022-06-05] MEDS: proCHLORPERazine 5 MG Tablet 10 MG PO (14:50)
[2022-06-05 14:53] VITALS: BP 112/66; PULSE 72; RESP 12; TEMP 36.7; O2SAT 97
== END 2022-06-05 15:11 | disposition home or self-care (01) | DRG 603 ==
LOC: ED 12:53 → PCU 19:32
PROVIDERS: Admitting Provider Internal Medicine; Emergency Provider Emergency Medicine; PCP Internal Medicine; Referring Provider Emergency Medicine; Visit Provider Internal Medicine
DX: L03.313 Cellulitis of chest wall (principal); D84.9 Immunodeficiency, unspecified; M06.4 Inflammatory polyarthropathy; M35.00 Sjogren syndrome, unspecified; I10 Essential (primary) hypertension; F32.A Depression, unspecified; B95.5 Unspecified streptococcus as the cause of diseases classified elsewhere; Z79.899 Other long term (current) drug therapy; Z87.891 Personal history of nicotine dependence
CPT/HCPCS: 36415; 71045; 74150; 80048; 80053; 80202; 85025; 85652; 86140; 93005; 99285; J7030; J7040; J7050; Q9957; Q9967; A4216; J0696; J2405

== ENCOUNTER → 2022-07-07 | Outpatient (CLI) | payer OTHER, SELFPAY ==
[2022-07-07 12:38] LABS: Absolute Lymphocyte Count 1.48 X10^3/uL (0.83-4.51); Absolute Neutrophil Count 3.4 X10^3/uL (2.0-7.7); Basophil# 0.05 X10^3/uL; Basophil% 0.9 % (0-1); Eosinophil# 0.09 X10^3/uL; Eosinophils% 1.7 % (0-5); Hematocrit 42.3 % (37-47); Hemoglobin 13.5 g/dL (12.0-15.0); Lymphocyte # 1.48 X10^3/ul (0.83-4.51); Lymphocyte % 27.8 % (19-41); Mean Corp Hgb Conc 31.9 g/dL (32-36); Mean Corpuscular Hgb 31.9 pg (27.0-32.0); Monocyte% 5.6 % (0-10); NRBC Flagged by Analyzer 0 % (0-5); Neutrophil # 3.39 X10^3/uL (2.7-7.7); Neutrophil % 63.8 % (47-70); Platelet Count 180 K/mm3 (150-450); RBC Distribution Width CV 13.3 % (11.6-14.6); RBC Distribution Width SD 48.8 fl (35.1-43.9); Red Blood Count 4.23 M/mm3 (4.2-5.4); White Blood Count 5.3 K/mm3 (4.4-11.0)
[2022-07-07 12:39] LABS: ALB/GLOB Ratio 1.1 RATIO (0.9-2.4); AST(SGOT) 24 U/L (15-37); Alanine Aminotransfer ALT/SGPT 24 U/L (13-56); Albumin, Serum 3.6 g/dL (3.2-5.0); Alkaline Phosphatase 89 U/L (45-117); Anion Gap 6 (5-15); BUN 16 mg/dL (7-18); BUN/Creat Ratio 19.5 RATIO (10-20); Chloride 107 mmol/L (98-107); Creatinine, Serum 0.82 mg/dL (0.55-1.02); EST Glomerular Filtration Rate 75 mL/min (>60); Est Glom Filt Rate - Afr Amer 91 mL/min (>60); Globulin 3.2 g/dL (2.2-4.2); Glucose 88 mg/dL (74-106); Potassium 3.9 mmol/L (3.5-5.1); Protein, Total 6.8 g/dL (6.4-8.2); Sodium Level 138 mmol/L (136-145)
== END | disposition home or self-care (01) ==
LOC: MTLAB 10:21
PROVIDERS: PCP Internal Medicine; Referring Provider Internal Medicine Rheumatology; Visit Provider Internal Medicine Rheumatology
DX: M06.4 Inflammatory polyarthropathy (principal); M79.7 Fibromyalgia; R76.8 Other specified abnormal immunological findings in serum; Z79.899 Other long term (current) drug therapy
CPT/HCPCS: 36415; 80053; 85025

== ENCOUNTER → 2022-09-03 | Outpatient (CLI) | payer OTHER, SELFPAY ==
[2022-09-03 12:33] LABS: Absolute Lymphocyte Count 1.02 X10^3/uL (0.83-4.51); Absolute Neutrophil Count 1.5 X10^3/uL (2.0-7.7); Basophil# 0.02 X10^3/uL; Basophil% 0.7 % (0-1); Eosinophil# 0.04 X10^3/uL; Eosinophils% 1.4 % (0-5); Hematocrit 39.3 % (37-47); Hemoglobin 12.7 g/dL (12.0-15.0); Lymphocyte # 1.02 X10^3/ul (0.83-4.51); Lymphocyte % 35.5 % (19-41); Mean Corp Hgb Conc 32.3 g/dL (32-36); Mean Corpuscular Hgb 32.3 pg (27.0-32.0); Mean Platelet Vol. 10.8 fl (6.2-12.0); Monocyte# 0.28 X10^3/uL; Monocyte% 9.8 % (0-10); NRBC Flagged by Analyzer 0 % (0-5); Neutrophil # 1.51 X10^3/uL (2.7-7.7); Neutrophil % 52.6 % (47-70); Platelet Count 158 K/mm3 (150-450); RBC Distribution Width CV 13.2 % (11.6-14.6); Red Blood Count 3.93 M/mm3 (4.2-5.4); White Blood Count 2.9 K/mm3 (4.4-11.0)
[2022-09-03 12:52] LABS: ALB/GLOB Ratio 1.2 RATIO (0.9-2.4); AST(SGOT) 20 U/L (15-37); Alanine Aminotransfer ALT/SGPT 21 U/L (13-56); Albumin, Serum 3.4 g/dL (3.2-5.0); Alkaline Phosphatase 70 U/L (45-117); Anion Gap 4 (5-15); BUN 10 mg/dL (7-18); BUN/Creat Ratio 10.6 RATIO (10-20); Calcium,Total 8.9 mg/dL (8.5-10.1); Chloride 111 mmol/L (98-107); Creatinine, Serum 0.94 mg/dL (0.55-1.02); EST Glomerular Filtration Rate 64 mL/min (>60); Est Glom Filt Rate - Afr Amer 78 mL/min (>60); Globulin 2.8 g/dL (2.2-4.2); Glucose 86 mg/dL (74-106); Potassium 3.8 mmol/L (3.5-5.1); Protein, Total 6.2 g/dL (6.4-8.2); Sodium Level 141 mmol/L (136-145)
== END | disposition home or self-care (01) ==
LOC: MTLAB 09:52
PROVIDERS: PCP Internal Medicine; Referring Provider Internal Medicine Rheumatology; Visit Provider Internal Medicine Rheumatology
DX: M06.4 Inflammatory polyarthropathy (principal); R76.8 Other specified abnormal immunological findings in serum; M79.7 Fibromyalgia; Z79.899 Other long term (current) drug therapy
CPT/HCPCS: 36415; 80053; 85025

== ENCOUNTER → 2022-09-27 | Outpatient (CLI) | payer OTHER, SELFPAY ==
[2022-09-27 09:57] LABS: Mucous, Urine 0 SEEN /hpf (<or=2+); Red Blood Cells-Urine 0 SEEN /hpf (0-5)
[2022-09-27 12:19] LABS: Color, Urine Yellow (Yellow); Glucose, Dipstick Normal (Normal); Ketone-Dipstick 5 mg/dl (Negative); Leukocyte Esterase-Dipstick 500 /ul (Negative); Nitrite-Dipstick Positive (Negative); Occult Blood-Urine 25 /ul (Negative); Protein-Dipstick 30 mg/dl (Negative); Specific Gravity, Urine 1.025 (1.002-1.030); Urine Bilirubin Dipstick 1 mg/dL (Negative); Urine Clarity Sl. Cloudy (Clear); Urine Urobilinogen Normal (Normal)
[2022-09-27 12:38] LABS: Bacteria 1+ /hpf (None Seen); Squamous Epithelial Cells - UA 0-5 SEEN /hpf (5-10); White Blood Cells 50-100 SEEN /hpf (0-5)
== END | disposition home or self-care (01) ==
LOC: LABSPEC 09:56
PROVIDERS: PCP Internal Medicine; Referring Provider Internal Medicine; Visit Provider Internal Medicine
DX: R30.0 Dysuria (principal)
CPT/HCPCS: 81001

== ENCOUNTER → 2022-11-08 | Outpatient (CLI) | payer OTHER, SELFPAY ==
[2022-11-08 12:19] LABS: Absolute Lymphocyte Count 1.11 X10^3/uL (0.83-4.51); Absolute Neutrophil Count 2.3 X10^3/uL (2.0-7.7); Basophil# 0.04 X10^3/uL; Basophil% 1.1 % (0-1); Eosinophil# 0.04 X10^3/uL; Eosinophils% 1.1 % (0-5); Hematocrit 42.7 % (37-47); Hemoglobin 13.6 g/dL (12.0-15.0); Lymphocyte # 1.11 X10^3/ul (0.83-4.51); Lymphocyte % 29.8 % (19-41); Mean Corp Hgb Conc 31.9 g/dL (32-36); Mean Corpuscular Hgb 31.9 pg (27.0-32.0); Mean Platelet Vol. 10.3 fl (6.2-12.0); Monocyte# 0.26 X10^3/uL; NRBC Flagged by Analyzer 0 % (0-5); Neutrophil # 2.27 X10^3/uL (2.7-7.7); Platelet Count 178 K/mm3 (150-450); RBC Distribution Width CV 11.9 % (11.6-14.6); RBC Distribution Width SD 43.5 fl (35.1-43.9); Red Blood Count 4.27 M/mm3 (4.2-5.4); White Blood Count 3.7 K/mm3 (4.4-11.0)
[2022-11-08 13:12] LABS: ALB/GLOB Ratio 1.2 RATIO (0.9-2.4); AST(SGOT) 17 U/L (15-37); Alanine Aminotransfer ALT/SGPT 25 U/L (13-56); Albumin, Serum 3.7 g/dL (3.2-5.0); Alkaline Phosphatase 90 U/L (45-117); Anion Gap 8 (5-15); BUN 10 mg/dL (7-18); BUN/Creat Ratio 10.5 RATIO (10-20); Calcium,Total 9.1 mg/dL (8.5-10.1); Chloride 108 mmol/L (98-107); Creatinine, Serum 0.95 mg/dL (0.55-1.02); EST Glomerular Filtration Rate 64 mL/min (>60); Est Glom Filt Rate - Afr Amer 77 mL/min (>60); Globulin 3.1 g/dL (2.2-4.2); Glucose 128 mg/dL (74-106); Potassium 3.7 mmol/L (3.5-5.1); Protein, Total 6.8 g/dL (6.4-8.2); Sodium Level 140 mmol/L (136-145)
[2022-11-10 16:09] LABS: G6PD Quant Test 283 (127-427); Red Blood Cell Count Test/G6PD 4.24 x10E6/uL (3.77-5.28)
== END | disposition home or self-care (01) ==
LOC: MTLAB 10:39
PROVIDERS: PCP Internal Medicine; Referring Provider Internal Medicine Rheumatology; Visit Provider Internal Medicine Rheumatology
DX: M06.4 Inflammatory polyarthropathy (principal); K58.1 Irritable bowel syndrome with constipation; R76.8 Other specified abnormal immunological findings in serum; Z79.899 Other long term (current) drug therapy
CPT/HCPCS: 36415; 80053; 82955; 85025

== ENCOUNTER → 2022-11-24 | Outpatient (CLI) | payer OTHER, SELFPAY ==
--- NOTE | 2022-11-24 10:27 | RAD_ITS ---
STUDY: X-RAY - ABDOMEN/PELVIS REASON FOR EXAM: Female, 62 years old. Constipation . Sitz markers. TECHNIQUE: Single AP view of the abdomen / pelvis. COMPARISON: None. FINDINGS: There is an abundance of fecal material throughout the colon. The majority of the Stitz markers are seen in the left hemicolon. The visualized liver, spleen and kidneys are grossly normal in size and morphology. Normal soft tissue structures. Normal visualized osseous structures. RAD/Abdomen Single View IMPRESSION: The majority of the Stitz markers are within the left hemicolon. Electronically Signed: Miguel Ackerman MD at 9:01 EDT ,
== END | disposition home or self-care (01) ==
LOC: RAD 10:24
PROVIDERS: PCP Internal Medicine; Referring Provider Internal Medicine Gastroenterology; Visit Provider Internal Medicine Gastroenterology
DX: K59.04 Chronic idiopathic constipation (principal)
CPT/HCPCS: 74018

== ENCOUNTER → 2022-11-26 | Outpatient (CLI) | payer OTHER, SELFPAY ==
--- NOTE | 2022-11-26 10:10 | RAD_ITS ---
INDICATION: constipation COMPARISON: Abdominal radiograph 11/24/2022. FINDINGS: 2 frontal views of the abdomen. Nonobstructive bowel gas pattern. No obvious free air. No definite suspicious calcifications. No mass appreciated. RAD/Abdomen Single View IMPRESSION: Unremarkable abdomen. Electronically Signed: Leon Luevano MD at 7:11 EDT ,
== END | disposition home or self-care (01) ==
LOC: RAD 09:57
PROVIDERS: PCP Internal Medicine; Referring Provider Internal Medicine Gastroenterology; Visit Provider Internal Medicine Gastroenterology
DX: K59.04 Chronic idiopathic constipation (principal)
CPT/HCPCS: 74018

== ENCOUNTER → 2022-11-30 | Outpatient (CLI) | payer OTHER, SELFPAY ==
--- NOTE | 2022-12-01 10:38 | NM_ITS ---
CLINICAL: 62-year-old female with history of abdominal pain. SEMI-SOLID PHASE 99m Tc SULFUR COLLOID GASTRIC EMPTYING STUDY COMPARISON: None available FINDINGS: The patient was administered 1.1 mCi of 99m Tc sulfur colloid mixed with oatmeal and consumed per os. Image acquisitions in the anterior-posterior projections were obtained for 60 minutes. There is prompt visualization of the stomach. There is no gastroesophageal reflux identified. The T ? raw data emptying was calculated to be 26.32 minutes, (Normal: 12-56 minutes). NM/Gastric Emptying Study IMPRESSION: 1. NORMAL 99m Tc sulfur colloid semi-solid phase (oatmeal) gastric emptying imaging examination. A. There is normal and preserved semi-solid phase gastric emptying compared to normal controls. (Jorge Luis et al, J Nucl Med Tech 38: 186, 2010). Electronically Signed: Tian Su DO at 23:22 EDT ,
== END | disposition home or self-care (01) ==
PROVIDERS: PCP Internal Medicine; Referring Provider Internal Medicine Gastroenterology; Visit Provider Internal Medicine Gastroenterology
DX: K59.04 Chronic idiopathic constipation (principal); R11.0 Nausea
CPT/HCPCS: 78264; A9541

== ENCOUNTER → 2022-12-14 | Outpatient (CLI) | payer OTHER, SELFPAY ==
[2022-12-14 12:32] LABS: Absolute Lymphocyte Count 1.02 X10^3/uL (0.83-4.51); Absolute Neutrophil Count 1.8 X10^3/uL (2.0-7.7); Basophil# 0.02 X10^3/uL; Basophil% 0.6 % (0-1); Eosinophil# 0.04 X10^3/uL; Eosinophils% 1.3 % (0-5); Hematocrit 40.8 % (37-47); Hemoglobin 12.9 g/dL (12.0-15.0); Lymphocyte # 1.02 X10^3/ul (0.83-4.51); Lymphocyte % 32.5 % (19-41); Mean Corp Hgb Conc 31.6 g/dL (32-36); Mean Corpuscular Hgb 31.5 pg (27.0-32.0); Mean Corpuscular Volume 99.5 fL (81-99); Mean Platelet Vol. 10.7 fl (6.2-12.0); Monocyte# 0.25 X10^3/uL; NRBC Flagged by Analyzer 0 % (0-5); Neutrophil % 57.3 % (47-70); Platelet Count 169 K/mm3 (150-450); RBC Distribution Width CV 11.4 % (11.6-14.6); RBC Distribution Width SD 41.9 fl (35.1-43.9); White Blood Count 3.1 K/mm3 (4.4-11.0)
== END | disposition home or self-care (01) ==
LOC: MTLAB 10:49
PROVIDERS: PCP Internal Medicine; Referring Provider Internal Medicine Rheumatology; Visit Provider Internal Medicine Rheumatology
DX: M06.4 Inflammatory polyarthropathy (principal); M79.7 Fibromyalgia; R76.8 Other specified abnormal immunological findings in serum; Z79.899 Other long term (current) drug therapy
CPT/HCPCS: 36415; 85025

== ENCOUNTER → 2023-01-24 | Outpatient (CLI) | payer OTHER, SELFPAY ==
[2023-01-24 12:33] LABS: Absolute Lymphocyte Count 1.26 X10^3/uL (0.83-4.51); Absolute Neutrophil Count 2.4 X10^3/uL (2.0-7.7); Basophil# 0.02 X10^3/uL; Basophil% 0.5 % (0-1); Eosinophil# 0.03 X10^3/uL; Eosinophils% 0.8 % (0-5); Hematocrit 42.3 % (37-47); Hemoglobin 13.5 g/dL (12.0-15.0); Lymphocyte # 1.26 X10^3/ul (0.83-4.51); Lymphocyte % 31.7 % (19-41); Mean Corp Hgb Conc 31.9 g/dL (32-36); Mean Corpuscular Hgb 31.3 pg (27.0-32.0); Mean Corpuscular Volume 97.9 fL (81-99); Mean Platelet Vol. 10.7 fl (6.2-12.0); Monocyte# 0.28 X10^3/uL; Monocyte% 7.1 % (0-10); NRBC Flagged by Analyzer 0 % (0-5); Neutrophil # 2.38 X10^3/uL (2.7-7.7); Neutrophil % 59.9 % (47-70); Platelet Count 181 K/mm3 (150-450); RBC Distribution Width CV 11.8 % (11.6-14.6); RBC Distribution Width SD 42.9 fl (35.1-43.9); Red Blood Count 4.32 M/mm3 (4.2-5.4)
[2023-01-24 13:55] LABS: ALB/GLOB Ratio 1.2 RATIO (0.9-2.4); AST(SGOT) 23 U/L (15-37); Alanine Aminotransfer ALT/SGPT 25 U/L (13-56); Albumin, Serum 3.6 g/dL (3.2-5.0); Alkaline Phosphatase 76 U/L (45-117); Anion Gap 5 (5-15); BUN 12 mg/dL (7-18); BUN/Creat Ratio 13.1 RATIO (10-20); Chloride 108 mmol/L (98-107); Creatinine, Serum 0.92 mg/dL (0.55-1.02); EST Glomerular Filtration Rate 66 mL/min (>60); Est Glom Filt Rate - Afr Amer 80 mL/min (>60); Globulin 2.9 g/dL (2.2-4.2); Glucose 82 mg/dL (74-106); Potassium 4.3 mmol/L (3.5-5.1); Protein, Total 6.5 g/dL (6.4-8.2); Sodium Level 139 mmol/L (136-145)
== END | disposition home or self-care (01) ==
PROVIDERS: PCP Internal Medicine; Referring Provider Internal Medicine Rheumatology; Visit Provider Internal Medicine Rheumatology
DX: M06.4 Inflammatory polyarthropathy (principal); Z79.899 Other long term (current) drug therapy; R76.8 Other specified abnormal immunological findings in serum; M79.7 Fibromyalgia
CPT/HCPCS: 36415; 80053; 85025

== ENCOUNTER → 2023-07-25 | Outpatient (CLI) | payer OTHER, SELFPAY ==
[2023-07-25 17:35] LABS: Absolute Lymphocyte Count 1.36 X10^3/uL (0.83-4.51); Absolute Neutrophil Count 1.7 X10^3/uL (2.0-7.7); Basophil# 0.02 X10^3/uL; Basophil% 0.6 % (0-1); Eosinophil# 0.08 X10^3/uL; Eosinophils% 2.4 % (0-5); Hematocrit 38.8 % (37-47); Hemoglobin 12.5 g/dL (12.0-15.0); Lymphocyte # 1.36 X10^3/ul (0.83-4.51); Lymphocyte % 40.2 % (19-41); Mean Corp Hgb Conc 32.2 g/dL (32-36); Mean Corpuscular Hgb 31.1 pg (27.0-32.0); Mean Corpuscular Volume 96.5 fL (81-99); Mean Platelet Vol. 10.2 fl (6.2-12.0); Monocyte# 0.24 X10^3/uL; Monocyte% 7.1 % (0-10); NRBC Flagged by Analyzer 0 % (0-5); Neutrophil # 1.68 X10^3/uL (2.7-7.7); Neutrophil % 49.7 % (47-70); Platelet Count 177 K/mm3 (150-450); RBC Distribution Width CV 12.4 % (11.6-14.6); RBC Distribution Width SD 44.2 fl (35.1-43.9); Red Blood Count 4.02 M/mm3 (4.2-5.4); White Blood Count 3.4 K/mm3 (4.4-11.0)
[2023-07-25 17:55] LABS: Erythrocyte Sedimentation Rate 1 mm/hr (0-30)
[2023-07-25 18:05] LABS: ALB/GLOB Ratio 1.2 RATIO (0.9-2.4); AST(SGOT) 18 U/L (15-37); Alanine Aminotransfer ALT/SGPT 20 U/L (13-56); Albumin, Serum 3.5 g/dL (3.2-5.0); Alkaline Phosphatase 70 U/L (45-117); Anion Gap 6 (5-15); BUN 16 mg/dL (7-18); BUN/Creat Ratio 18.5 RATIO (10-20); CRP < 2.90 mg/L (0.0-3.0); Calcium,Total 9.1 mg/dL (8.5-10.1); Chloride 106 mmol/L (98-107); Creatinine, Serum 0.87 mg/dL (0.55-1.02); EST Glomerular Filtration Rate 71 mL/min (>60); Est Glom Filt Rate - Afr Amer 85 mL/min (>60); Glucose 82 mg/dL (74-106); Potassium 3.7 mmol/L (3.5-5.1); Protein, Total 6.5 g/dL (6.4-8.2); Sodium Level 137 mmol/L (136-145)
== END | disposition home or self-care (01) ==
PROVIDERS: PCP Internal Medicine; Referring Provider Internal Medicine Rheumatology; Visit Provider Internal Medicine Rheumatology
DX: M06.4 Inflammatory polyarthropathy (principal); R76.8 Other specified abnormal immunological findings in serum; M79.7 Fibromyalgia; Z79.899 Other long term (current) drug therapy
CPT/HCPCS: 36415; 80053; 85025; 85652; 86140

== ENCOUNTER 2023-09-16 05:56 | Day surgery (SDC) | payer OTHER, SELFPAY ==
[2023-09-16] VITALS (8 sets, daily range): BP systolic 95–105; BP diastolic 47–69; PULSE 72–90; RESP 14–16; TEMP 36.1–36.6; O2SAT 94–99; BMI 24.2
[2023-09-16] MEDS: Lactated Ringers 1,000 ML 15 ML IV (06:25)
--- NOTE | 2023-09-16 06:33 | HP.PCM_ITS ---
History and Physical Date of Admission: 09/16/23 MARK ANDERSON, is a 63 F who presents to the office today for follow up. OV 6.11.24 pt reports continued constipation; reports a firm painful bm once every 4-5 days; denies blood in the stool. Pt reports N/V, abdominal pain, and bloating that she reports go along with not being able to have a bm. ROS Const Constitutional: Positive for fatigue and headache(s); No fever(s) or weight change ENT ENT: Positive for headache(s); No difficulty swallowing Gastro GI: Positive for abdominal pain, bloating, constipation, excessive flatus, nausea/dyspepsia and vomiting; No belching, change in bowel habits, change in stool character, coffee ground emesis, cramping, diarrhea, heartburn, difficulty swallowing, feeling full early, incontinent of stools, Vomiting blood/hematemesis, Blood in stool, loose stools, Black,tarry stools, pain with swallowing or other Musc Musculoskeletal: Positive for joint pain, back pain, numbness, stiffness, tingling, Arthritis and restless legs Skin Skin: No yellowing of the eye or itchy eyes Neuro Neurology: Positive for headache(s), numbness, tingling and restless legs Psych Psychiatric: Positive for anxiety and No depression Endo Endocrine: Positive for fatigue; No weight change Aller/Imm Allergy/Immunologic: No itchy eyes Dani/Lymp Hematologic/Lymphatic: Positive for easy bruising; No easy bleeding Exam Const General: cooperative, healthy appearing, no acute distress, well developed, not diaphoretic and not ill appearing Nutritional Appearance: well nourished Orientation: alert and oriented x3 Limitations: mental status not altered [facility] Head: normal to inspection, normocephalic and atraumatic Ears: hearing grossly normal bilaterally Face and sinus: normal facial exam Mouth: oral mucosae normal and moist mucous membranes Teeth and gingiva: dentition normal Throat: posterior oropharynx normal Eyes Conjunctivae: conjunctivae normal Sclera: sclerae normal Pupils: PERRL Chest Chest palpation & inspection: normal inspection of the chest Resp Effort & Inspection: normal respiratory effort, able to speak in complete sentences, no audible wheezes and no cough Auscultation: Bilateral: Clear to Auscultation Cardio Rate: regular rate Rhythm: regular rhythm Heart Sounds: S1 normal, S2 normal and no murmurs GI Inspection: non-distended Auscultation: normal bowel sounds Palpation: soft and no hepatosplenomegaly Skin General: no rashes or lesions noted and dry skin Wounds: no wounds Neuro General: patient alert and patient oriented x3 Cranial Nerves: PERRL Speech: speech normal Extrem General: normal to inspection and no edema Psych Appearance: grossly normal Mental Status: mental status grossly normal Affect: normal affect Attitude: cooperative Assessment and Plan Assessment and Plan (1) Nausea alone: Status: Acute Plan: Nausea with early satiety for least the last year. Patient does admit that she may have a eating disorder. However she is not binging and avoiding food probably. She wants to lose weight. She used to take laxatives to avoid gaining weight. She does not take any laxatives at this time. She gets very bloated and gassy. She also has a recent diagnosis of Sjogren syndrome. We went over the GI effects of Sjogren syndrome including delayed gastric emptying and delayed small bowel intestinal motility. I think she should undergo a gastric emptying study to evaluate the motility in her stomach and she should undergo an MR enterography. (2) Constipation: Status: Acute Qualifiers: Constipation type: chronic idiopathic constipation Qualified Code(s): K59.04 - Chronic idiopathic constipation Plan: The differential diagnosis for her includes slow transit constipation versus pelvic floor dysfunction. 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 She had a normal colonoscopy almost 10 years ago. She does not have any obstructive symptoms. She has agreed to undergo screening colonoscopy. She had nausea and diarrhea after taking prucalopride. I would like to get a sits marker test first to evaluate her colonic transit time as we evaluate her gastric transit time and small bowel. Her sits marker test is still slow transit constipation without any signs of pelvic floor dysfunction. Also displayed severe chronic constipation. Depending on what those studies show she may need endoscopy however a lot of her issues could be autoimmune disease affecting the GI tract. I have examined the patient and the H&P has been reviewed. There are no clinical changes since date of exam.
--- NOTE | 2023-09-16 07:07 | PCM.PRE.AN2 ---
ASA Classification* ASA Classification ASA Classification: 2 Assessment & Plan Anesthesia* Anesthesia Assessment Anesthesia Assessment: Discussed sedation and/or anesthesia options, risks, benefits, and alternatives with patient/parents/legal guardian/POA. Questions invited. The patient/parents/legal guardian/POA seems to understand and agrees to proceed with anesthesia plan. Reviewed the physical assessment, medical history, allergy history and patient home medications list prior to surgery/procedure/anesthetic and documented any changes. Performed airway and anesthesia risk assessments. Anesthesia Type Anesthesia Type: MAC Anesthesia Focused Assessment* Temperature: 97.8 F Pulse Rate: 90 Blood Pressure: 100/47 Respiratory Rate: 16 Pulse Ox: 97 Airway Assessment Mouth opens: >3 cm Mallampati Score: II Focused Labs Anesthesia Preop lab: CBC WBC 3.4 K/mm3 (4.4-11.0) L 07/25/23 15:53 RBC 4.02 M/mm3 (4.2-5.4) L 07/25/23 15:53 Hgb 12.5 g/dL (12.0-15.0) 07/25/23 15:53 Hct 38.8 % (37-47) 07/25/23 15:53 Plt Count 177 K/mm3 (150-450) 07/25/23 15:53 CHEMISTRY Potassium 3.7 mmol/L (3.5-5.1) 07/25/23 15:53 Sodium 137 mmol/L (136-145) 07/25/23 15:53 Magnesium 1.8 mg/dL (1.6-2.6) 01/26/22 02:08 BUN 16 mg/dL (7-18) 07/25/23 15:53 Creatinine 0.87 mg/dL (0.55-1.02) 07/25/23 15:53 Glucose 82 mg/dL (74-106) 07/25/23 15:53 POC Glucose 71 mg/dL (70-110) 04/15/21 07:11 TSH 1.03 uIU/mL (0.358-3.74) 01/26/22 02:08 COAG PT 13.5 SECONDS (11.7-14.9) 04/27/22 14:22 Urine Test Negative Negative 01/17/16 16:00 Pre-Assessment Diagnosis/Proposed Procedure Planned Operative Procedure(s): COLONOSCOPY Anesthesia History Anesthesia History - trimmer operator three 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 When Was Last Pacemaker Check QUESTION #4 FULL TEXT: You/Your Family Experience fever (hyperthermia) with Anesthesia Last Oral Intake Last Oral intake: Last Oral Intake NPO since 23:00 09/16/23 06:17 Meds taken in AM with sips of No 09/16/23 06:17 water? Meds patient instructed to take am of surgery PONV PONV - trimmer operator three knife: PONV - trimmer operator three knife Female Yes 08/22/23 10:57 HX of Motion Sickness No 08/22/23 10:57 HX of N/V After Surgery No 08/22/23 10:57 Non-Smoker Yes 08/22/23 10:57 Duration of Surgery greater No 08/22/23 10:57 than 60 minutes Number of Risk Factors 2 08/22/23 10:57 PONV Score Moderate Risk 08/22/23 10:57 Height & Weight Height & Weight: Anesthesia: Height & Weight Height 5 ft 1 in 09/16/23 06:17 Weight: 58.1 kg 09/16/23 06:17 Body Mass Index (BMI) 24.2 09/16/23 06:17 Respiratory Assessment Respiratory Assessment - trimmer operator three knife: Respiratory Tract Infection Hx - trimmer operator three knife Hx Respiratory Tract Infection No 08/22/23 10:57 STOP Sleep Apnea STOP Sleep Apnea - trimmer operator three knife: STOP Sleep Apnea - trimmer operator three knife Hx Hypertension No 08/22/23 10:57 Hx Sleep Apnea No 08/22/23 10:57 CPAP No 02/25/23 10:30 BIPAP No 02/25/23 10:30 Do you snore loudly (louder No 08/22/23 10:57 than talking or can be heard Do you often feel tired/ No 08/22/23 10:57 fatigued/ sleepy during daytime? Has anyone observed you stop No 08/22/23 10:57 breathing during sleep? STOP Results Negative 08/22/23 10:57 QUESTION #5 FULL TEXT : Do you snore loudly (louder than talking or can be heard through closed doors)? 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 Specify any problems Hx of Preganancy in last 3 No 08/22/23 10:57 Months Nurse Filling Out Transfusion VANIA 08/22/23 10:57 & Questions: Date: 08/22/23 08/22/23 10:57 Time: 11:01 08/22/23 10:57 Patient unable to answer at this time (ie. confused, unrespo /Reproduction History /Reproductive History - trimmer operator three knife: /Reproductive Hx- trimmer operator three knife Hx Now No 08/22/23 10:57 Gestational Age (in weeks): EDC: Hx Hx Para Hx Section SAB No 08/22/23 10:57 Active Medications Active Medications: Current Medications Generic Name Dose Route Start Last Admin Trade Name Freq PRN Reason Stop Dose Admin Lactated Ringer's 1,000 mls @ 15 mls/hr 09/16/23 06:15 09/16/23 06:25 IV 15 mls/hr .Q48H JULIAN Administration PFSH Medical History Sjogren syndrome Post-menopausal History of steroid therapy Rheumatoid arthritis Anemia History of echocardiogram Cardiology follow-up encounter Chronic constipation Anxiety Kidney stones Chest pain UTI (urinary tract infection) Irritable bowel syndrome Tachycardia Former smoker Acute postoperative anemia due to expected blood loss Drug-induced pruritus Wears glasses Alcohol use Restless legs Migraine headache Family history of breast cancer Intertrigo Shoulder pain Chronic thoracic back pain Chronic neck pain Macromastia Elective procedure for unacceptable cosmetic appearance Diastasis of rectus abdominis Excessive and redundant skin and subcutaneous tissue Excessive body weight loss Anemia Hemorrhoids Fatigue Hydronephrosis with urinary obstruction due to renal calculus HLD (hyperlipidemia) Left ureteral stone Home Medications ?Medication ?Instructions ?Recorded ?Last Taken ?Type hydroxychloroquine 200 mg tablet 200 mg PO DAILY 05/11/23 Unknown History (Plaquenil) escitalopram oxalate 20 mg tablet 20 mg PO QHS #90 TABLETS 05/13/23 Unknown Rx duloxetine 40 mg capsule,delayed 40 mg PO DAILY #90 caps 07/25/23 Unknown Rx release trazodone 100 mg tablet 100 mg PO QHS for insomnia #90 07/27/23 Unknown Rx TABLETS sumatriptan succinate 25 mg tablet See Rx Instructions PO .COMPLEX 08/22/23 Unknown History (Imitrex) PRN migraine headache peg 3350-electrolytes 236 240 ml PO Q10M #4,000 mL 08/26/23 Unknown Rx gram-22.74 gram-6.74 gram-5.86 gram solution (Golytely) Allergy/AdvReac Type Severity Reaction Status Date / Time clindamycin (From Cleocin) Allergy Mild itching Verified 09/16/23 06:16 amoxicillin Allergy Rash Verified 09/16/23 06:16 hydrocodone (From Vicodin) Allergy Rash Verified 09/16/23 06:16 doxycycline AdvReac Intermediate Rash Verified 09/16/23 06:16 hydromorphone (From Dilaudid) AdvReac Other Verified 09/16/23 06:16 sulfamethoxazole (From AdvReac Nausea Verified 09/16/23 06:16 Bactrim) trimethoprim (From Bactrim) AdvReac Nausea Verified 09/16/23 06:16 Family History Daughter Cancer Thyroid cancer Asthma Father Cancer bone Alcoholism Mother Hypertension Thyroid disorder Dementia CAD (coronary artery disease) Sister Anemia Grandmother Cancer colon, breast Brother Alcoholism Dementia Frontal lobe Other Family history of breast cancer Surgical History History of left heart catheterization Status post bilateral breast reduction History of abdominoplasty Hx of tubal ligation Hx of cystoscopy (~11/17/16) History of ear surgery Hx of section Social History household members: spouse current occupational status: employed and retired 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, 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
--- NOTE | 2023-09-16 07:33 | OP.COLON_ITS ---
Patient Name: Stella Benítez Procedure Date: 09/16/2023 7:05 AM Date of : 1960 Age: 63 Procedure: Colonoscopy Indications: Screening for colorectal malignant neoplasm Providers: Panchito Khan DO Referring MD: Jayla Mcfarlane Md Medicines: Monitored Anesthesia Care Patient Profile: This is a 63 year old female. Refer to note in patient chart for documentation of history and physical. Last Colonoscopy: date unknown. Unable to locate last colonoscopy report. Complications: No immediate complications. Procedure: Pre-Anesthesia Assessment: - Prior to the procedure, a History and Physical was performed, and patient medications and allergies were reviewed. The risks and benefits of the procedure and the sedation options and risks were discussed with the patient. All questions were answered and informed consent was obtained. Patient identification and proposed procedure were verified by the physician in the pre-procedure area. Mental Status Examination: alert and oriented. Airway Examination: normal oropharyngeal airway and neck mobility. Respiratory Examination: clear to auscultation. CV Examination: normal. Prophylactic Antibiotics: The patient does not require prophylactic antibiotics. Prior Anticoagulants: The patient has taken no anticoagulant or antiplatelet agents. ASA Grade Assessment: II - A patient with mild systemic disease. After reviewing the risks and benefits, the patient was deemed in satisfactory condition to undergo the procedure. The anesthesia plan was to use monitored anesthesia care (MAC). Immediately prior to administration of medications, the patient was re-assessed for adequacy to receive sedatives. The heart rate, respiratory rate, oxygen saturations, blood pressure, adequacy of pulmonary ventilation, and response to care were monitored throughout the procedure. The physical status of the patient was re-assessed after the procedure. After I obtained informed consent, the scope was passed under direct vision. Throughout the procedure, the patient's blood pressure, pulse, and oxygen saturations were monitored continuously. The Colonoscope was introduced through the anus and advanced to the cecum, identified by appendiceal orifice and ileocecal valve. The colonoscopy was performed without difficulty. The patient tolerated the procedure well. The quality of the bowel preparation was inadequate. The ileocecal valve and the appendiceal orifice were photographed. Scope In: 7:12:56 AM Scope Withdrawal Time 0 hours 4 minutes 32 seconds Scope Out: 7:23:14 AM Total Procedure Duration Time 0 hours 10 minutes 18 seconds Findings: The perianal and digital rectal examinations were normal. Multiple small and large-mouthed diverticula were found in the recto-sigmoid colon and sigmoid colon. A large amount of liquid semi-liquid semi-solid solid stool was found in the entire colon, precluding visualization. Impression: - Preparation of the colon was inadequate. - Diverticulosis in the recto-sigmoid colon and in the sigmoid colon. - Stool in the entire examined colon. - No specimens collected. Recommendation: - Discharge patient to home. - Resume previous diet. - Continue present medications. - Repeat colonoscopy at the next available appointment because the bowel preparation was suboptimal. Procedure Code(s): --- Professional --- G0121, Colorectal cancer screening; colonoscopy on individual not meeting criteria for high risk CPT copyright 2021 [employer]. All rights reserved. The codes documented in this report are preliminary and upon metalizing machine operator automatic review may be revised to meet current compliance requirements. Panchito Khan DO 09/16/2023 7:32:55 AM This report has been signed electronically. Number of Addenda: 0 Note Initiated On: 09/16/2023 7:05 AM
--- NOTE | 2023-09-16 07:33 | OP.CCLET_ITS ---
09/16/2023 Jayla Mcfarlane Md Re : Colonoscopy procedure for Stella Benítez Dear Denys This procedure was performed on Saturday, September 16, 2023. My impressions and recommendations are as follows: Impressions : - Preparation of the colon was inadequate. - Diverticulosis in the recto-sigmoid colon and in the sigmoid colon. - Stool in the entire examined colon. - No specimens collected. Recommendations : - Discharge patient to home. - Resume previous diet. - Continue present medications. - Repeat colonoscopy at the next available appointment because the bowel preparation was suboptimal. My findings are described in the full procedure note, which is enclosed. If I can be of further assistance, please feel free to contact me at . Sincerely, Panchito Khan, 09/16/2023 7:32:55 AM This report has been signed electronically.
--- NOTE | 2023-09-16 07:33 | PCM.POST.ANE ---
Anesthesia: Postop Eval I Current Vital Signs Temperature: 97.2 F Pulse Rate: 72 Blood Pressure: 105/66 Respiratory Rate: 16 Pulse Ox: 99 Oxygen Delivery Method: Room Air Assessment Airway patent: Yes Spontaneous unlabored respirations: Yes Mental status: Asleep nausea: No Vomiting: No Anesthesia Complication: No Fluid Hydration Crystalloid volume administer (ml): 1,000 Total IV fluid infused: 1,000 Progress Note Anesthesia document: Postop Eval 1 completed: Yes
--- NOTE | 2023-09-16 07:35 | PCM.POSTANE2 ---
Anesthesia Postop Eval I Sum Postop Eval Completion status Anesthesia document: Postop Eval 1 completed: Yes Anesthesia Postop Eval I Summary Anesthesia Postop Eval I Summary: Anesthesia Postop Eval I: Assessment Summary Airway patent Yes 09/16/23 07:34 [email or web address] Spontaneous unlabored Yes 09/16/23 07:34 [email or web address] respirations Mental status Asleep 09/16/23 07:34 [email or web address] nausea No 09/16/23 07:34 [email or web address] Vomiting No 09/16/23 07:34 [email or web address] Anesthesia Postop Eval I: Fluid Summary Crystalloid volume administer 1,000 09/16/23 07:34 [email or web address] (ml) Colloids volume administered ( ml) Blood Product volume administered (ml) Total IV fluid infused 1,000 09/16/23 07:34 [email or web address] Anesthesia Postop Eval I: Summary Notes Anesthesia Complication No 09/16/23 07:34 [email or web address] Anesthesia Complication Comment: Post-operative progress note Anesthesia: Postop Eval II Evaluation Mental status: Awake Pain Level: 0 nausea: No Vomiting: No Complications Anesthesia Complication: No
== END 2023-09-16 08:14 | disposition home or self-care (01) ==
LOC: EN 05:56 → AC 05:56
PROVIDERS: PCP Internal Medicine; Referring Provider Internal Medicine; Visit Provider Internal Medicine Gastroenterology
PROC: 0DJD8ZZ Inspection of Lower Intestinal Tract, Via Natural or Artificial Opening Endoscopic (ICD-10-PCS; CPT 45378; principal; 2023-09-16 06:55)
DX: Z12.11 Encounter for screening for malignant neoplasm of colon (principal); K57.30 Diverticulosis of large intestine without perforation or abscess without bleeding; Z79.899 Other long term (current) drug therapy; Z87.891 Personal history of nicotine dependence
CPT/HCPCS: G0121; J7120; J2405

== ENCOUNTER → 2023-12-12 | Outpatient (CLI) | payer OTHER, SELFPAY ==
[2023-12-12 15:48] LABS: Vitamin B12 405 pg/mL (211-911)
[2023-12-12 15:53] LABS: Cholesterol 200 mg/dL (200); High Density Lipoprotein 66 mg/dL; Triglycerides 47 mg/dL; Very Low Density Lipoprotein 9 mg/dL (5-40)
== END | disposition home or self-care (01) ==
LOC: BIMLAB 13:37
PROVIDERS: PCP Internal Medicine; Referring Provider Internal Medicine; Visit Provider Internal Medicine
DX: D89.89 Other specified disorders involving the immune mechanism, not elsewhere classified (principal); Z13.6 Encounter for screening for cardiovascular disorders
CPT/HCPCS: 36415; 80061; 82607

== ENCOUNTER → 2024-01-11 | Outpatient (CLI) | payer OTHER, SELFPAY ==
[2024-01-11 12:20] LABS: Absolute Lymphocyte Count 0.99 X10^3/uL (0.83-4.51); Absolute Neutrophil Count 1.7 X10^3/uL (2.0-7.7); Basophil# 0.03 X10^3/uL; Eosinophil# 0.03 X10^3/uL; Hematocrit 40.4 % (37-47); Hemoglobin 12.8 g/dL (12.0-15.0); Lymphocyte # 0.99 X10^3/ul (0.83-4.51); Mean Corp Hgb Conc 31.7 g/dL (32-36); Mean Corpuscular Hgb 31.1 pg (27.0-32.0); Mean Corpuscular Volume 98.3 fL (81-99); Mean Platelet Vol. 10.3 fl (6.2-12.0); Monocyte% 6.9 % (0-10); NRBC Flagged by Analyzer 0 % (0-5); Neutrophil # 1.65 X10^3/uL (2.7-7.7); Neutrophil % 56.8 % (47-70); Platelet Count 157 K/mm3 (150-450); RBC Distribution Width CV 11.7 % (11.6-14.6); RBC Distribution Width SD 42.5 fl (35.1-43.9); Red Blood Count 4.11 M/mm3 (4.2-5.4); White Blood Count 2.9 K/mm3 (4.4-11.0)
[2024-01-11 12:43] LABS: ALB/GLOB Ratio 1.2 RATIO (0.9-2.4); AST(SGOT) 18 U/L (15-37); Alanine Aminotransfer ALT/SGPT 20 U/L (13-56); Albumin, Serum 3.5 g/dL (3.2-5.0); Alkaline Phosphatase 70 U/L (45-117); Anion Gap 4 (5-15); BUN 13 mg/dL (7-18); BUN/Creat Ratio 14.6 RATIO (10-20); Chloride 109 mmol/L (98-107); Creatinine, Serum 0.89 mg/dL (0.55-1.02); EST Glomerular Filtration Rate 68 mL/min (>60); Est Glom Filt Rate - Afr Amer 82 mL/min (>60); Globulin 2.8 g/dL (2.2-4.2); Glucose 89 mg/dL (74-106); Potassium 4.3 mmol/L (3.5-5.1); Protein, Total 6.3 g/dL (6.4-8.2); Sodium Level 140 mmol/L (136-145)
== END | disposition home or self-care (01) ==
LOC: MTLAB 09:57
PROVIDERS: PCP Internal Medicine; Referring Provider Internal Medicine Rheumatology; Visit Provider Internal Medicine Rheumatology
DX: M06.4 Inflammatory polyarthropathy (principal); R76.8 Other specified abnormal immunological findings in serum; M79.7 Fibromyalgia; Z79.899 Other long term (current) drug therapy
CPT/HCPCS: 36415; 80053; 85025

== ENCOUNTER → 2024-04-04 | Outpatient (CLI) | payer OTHER, SELFPAY ==
[2024-04-04 12:42] LABS: Absolute Neutrophil Count 1.9 X10^3/uL (2.0-7.7); Basophil# 0.03 X10^3/uL; Basophil% 0.9 % (0-1); Eosinophil# 0.04 X10^3/uL; Eosinophils% 1.2 % (0-5); Hematocrit 39.5 % (37-47); Hemoglobin 12.5 g/dL (12.0-15.0); Lymphocyte % 35.4 % (19-41); Mean Corp Hgb Conc 31.6 g/dL (32-36); Mean Corpuscular Hgb 30.4 pg (27.0-32.0); Mean Corpuscular Volume 96.1 fL (81-99); Mean Platelet Vol. 10.3 fl (6.2-12.0); Monocyte# 0.21 X10^3/uL; Monocyte% 6.2 % (0-10); NRBC Flagged by Analyzer 0 % (0-5); Platelet Count 168 K/mm3 (150-450); Red Blood Count 4.11 M/mm3 (4.2-5.4); White Blood Count 3.4 K/mm3 (4.4-11.0)
[2024-04-04 13:10] LABS: ALB/GLOB Ratio 1.2 RATIO (0.9-2.4); AST(SGOT) 28 U/L (15-37); Alanine Aminotransfer ALT/SGPT 32 U/L (13-56); Albumin, Serum 3.6 g/dL (3.2-5.0); Alkaline Phosphatase 75 U/L (45-117); Anion Gap 4 (5-15); BUN 16 mg/dL (7-18); BUN/Creat Ratio 17.7 RATIO (10-20); Calcium,Total 9.3 mg/dL (8.5-10.1); Chloride 109 mmol/L (98-107); EST Glomerular Filtration Rate 67 mL/min (>60); Est Glom Filt Rate - Afr Amer 81 mL/min (>60); Globulin 2.9 g/dL (2.2-4.2); Glucose 87 mg/dL (74-106); Potassium 4.4 mmol/L (3.5-5.1); Protein, Total 6.5 g/dL (6.4-8.2); Sodium Level 141 mmol/L (136-145)
== END | disposition home or self-care (01) ==
LOC: MTLAB 09:57
PROVIDERS: PCP Internal Medicine; Referring Provider Internal Medicine Rheumatology; Visit Provider Internal Medicine Rheumatology
DX: M06.4 Inflammatory polyarthropathy (principal); R76.8 Other specified abnormal immunological findings in serum; M79.7 Fibromyalgia; Z79.899 Other long term (current) drug therapy
CPT/HCPCS: 36415; 80053; 85025

== ENCOUNTER → 2024-07-31 | Outpatient (CLI) | payer OTHER, SELFPAY ==
--- NOTE | 2024-07-31 16:55 | CT_ITS ---
PROCEDURE: ABDOMEN/PELVIS WITH CONTRAST 07/31/2024 REASON FOR EXAM: CHRONIC CONSTIPATION, NAUSEA TECHNIQUE: Abdomen and pelvis CT with intravenous contrast. Coronal and Sagittal reconstruction series were provided. PATIENT PREPARATION: Per protocol ORAL CONTRAST TYPE: Patient ingested oral contrast. CONTRAST: Isovue-350 VOLUME: 100 mL One or more dose reduction techniques were used (e.g., Automated exposure control, adjustment of the mA and/or kV according to patient size, use of iterative reconstruction technique. RADIATION DOSE SUMMARY: CTDlvol: 8.59 mGy DLP: 451 mGycm COMPARISON: 06/02/2022. FINDINGS: Unchanged scattered simple hepatic cysts. Unchanged nonspecific dilatation of the common bile duct in the head of the pancreas without obstructing stone. The common bile duct measures 7.5 mm in the head of the pancreas, unchanged. Moderate amount of fecal residue in the large bowels, probably constipation. The visualized lung bases are unremarkable. Normal remaining liver. Normal gallbladder and remaining biliary system. Normal spleen. Normal pancreas. Normal bilateral adrenal glands. Normal size of the right kidney. There is no right renal mass. There are no right renal calculi. There is no right hydronephrosis. Normal visualized right ureter. Normal size of the left kidney. There is no left renal mass. There are no left renal calculi. There is no left hydronephrosis. Normal visualized left ureter. Normal visualized stomach. Normal small intestine. The appendix is visualized and appears normal. There is no demonstrated peritoneal fluid. Normal abdominal aorta. Normal inferior vena cava. Normal retroperitoneum. Normal urinary bladder. There is no pelvic mass lesion or lymphadenopathy. There is no pelvic fluid. Normal abdominal wall. Mild diffuse spondylosis. CT/Abdomen/Pelvis WITH Contrast IMPRESSION: Unchanged scattered simple hepatic cysts. Unchanged nonspecific dilatation of the common bile duct in the head of the lee creas without obstructing stone. The common bile duct measures 7.5 mm in the head of the pancreas, unchanged. Moderate amount of fecal residue in the large bowels, probably constipation. Reading Location: [place] [id number]
== END | disposition home or self-care (01) ==
LOC: CT 16:38
PROVIDERS: PCP Internal Medicine; Referring Provider Internal Medicine Gastroenterology; Visit Provider Internal Medicine Gastroenterology
DX: R11.0 Nausea (principal); K59.09 Other constipation
CPT/HCPCS: 74177; Q9967

== ENCOUNTER → 2024-09-13 | Outpatient (CLI) | payer OTHER, SELFPAY ==
--- NOTE | 2024-09-13 13:55 | EKG12_ITS ---
Test Reason : PRE OP Blood Pressure : */* mmHG Vent. Rate : 77 BPM Atrial Rate : 77 BPM P-R Int : 166 ms QRS Dur : 70 ms QT Int : 368 ms P-R-T Axes : 24 4 53 degrees QTcB Int : 416 ms Normal sinus rhythm Low voltage QRS Borderline ECG Confirmed by RANDY BERGMAN, MARY ANN ([id number]), photograph editor ELIZABETH BROWN ([id number]) on 09/14/2024 1:21:55 PM Referred By: Jayla Mcfarlane Confirmed By: MARY ANN PADILLA MD
--- NOTE | 2024-09-13 14:00 | RAD_ITS ---
PROCEDURE: CHEST PA AND LATERAL 09/13/2024 REASON FOR EXAM: PREOPERATIVE CLEARANCE TECHNIQUE: CHEST PA AND LATERAL COMPARISON: 06/02/2022 FINDINGS: No focal consolidation. No pleural effusion or pneumothorax. Cardiac silhouette is within normal limits. No acute fractures. RAD/Chest PA and Lateral IMPRESSION: No focal consolidations. Reading Location: [id number]
[2024-09-13 15:33] LABS: Hematocrit 39.4 % (37-47); Hemoglobin 12.8 g/dL (12.0-15.0); Immature Granulocytes Count 0.010 X10^3/uL (0.0-0.0); Mean Corp Hgb Conc 32.5 g/dL (32-36); Mean Corpuscular Volume 96.1 fL (81-99); Mean Platelet Vol. 10.3 fl (6.2-12.0); NRBC Flagged by Analyzer 0 % (0-5); Platelet Count 168 K/mm3 (150-450); RBC Distribution Width CV 12.1 % (11.6-14.6); RBC Distribution Width SD 42.6 fl (35.1-43.9); Red Blood Count 4.10 M/mm3 (4.2-5.4); White Blood Count 5.1 K/mm3 (4.4-11.0)
[2024-09-13 15:53] LABS: AST(SGOT) 29 U/L (<=31); Alanine Aminotransfer ALT/SGPT 19 U/L (<=34); Albumin, Serum 4.2 g/dL (3.4-4.8); Alkaline Phosphatase 76 U/L (35-104); Anion Gap 9 (5-15); BUN 11 mg/dL (4-19); BUN/Creat Ratio 11.7 RATIO (10-20); Calcium,Total 9.1 mg/dL (7.6-11.0); Carbon Dioxide 24.7 mmol/L (21.0-32.0); Chloride 105 mmol/L (98-108); Globulin 2.2 g/dL (2.2-4.2); Glucose 93 mg/dL (70-99); Potassium 3.9 mmol/L (3.3-5.1)
== END | disposition home or self-care (01) ==
PROVIDERS: PCP Internal Medicine; Referring Provider Internal Medicine; Visit Provider Internal Medicine
DX: Z01.818 Encounter for other preprocedural examination (principal)
CPT/HCPCS: 36415; 71046; 80053; 85025; 93005

== ENCOUNTER → 2024-09-20 | Outpatient (CLI) | payer OTHER, SELFPAY ==
--- OUTSIDE RECORDS SUMMARY | 2024-09-20 07:09 | XMS RPT_ITS | CCD ---
Author Organization [facility] Providers Care Core Java Engineer Name Role Phone KristynluisaNa trevino Unavailable Unavailable PROVIDER, UNKNOWN Unavailable Ritesh Rodriguez Unavailable Unavailable Dr. Ritesh Antonio Primary Care Provider Dr. Devaughn Diaz Attending Provider Dr. Devaughn Diaz Referring Provider Dr. Devaughn Diaz Other Provider Dr. Devaughn Diaz Admit Provider Dr. Ritesh Antonio Referring Provider Lis SKEWER UP, SKEWER UP-Joshua Lin Attending Provider DR RITESH ANTONIO MD Primary Care Physician Ritesh Antonio MD Primary Care Provider Ritesh Antonio MD Primary Care Provider NAHEED BERGMAN, MANOJ Attending Evan ANTONIO MD., DR. AWAD Primary Care MANOJ Gomes MD Attending Evan ANTONIO MD., DR. AWAD Primary Care Dr. Ritesh Cardozo Primary Care Provider Dr. Behzad Green Emergency Provider Dr. Cristi Srivastava Admit Provider Dr. Cristi Srivastava Attending Provider [phone] Dr. Cristi Srivastava Other Provider Dr. Eric Cuevas Attending Provider Dr. Eric Cuevas Other Provider Dr. Eric Pulido Attending Provider Dr. Eric Pulido Other Provider Ritesh Antonio MD Primary Care Provider Dr. Ritesh Antonio Referring Provider RENETTA Orta Attending Provider RITESH ANTONIO Attending Unavailab le MARISELA, RITESH RIVERA Primary Care Unavailab le MARISELA, RITESH RIVERA Referring Unavailab le MARISELA, RITESH RIVERA Primary Care Unavailab le KAMALJIT BROWN Attending Unavailable MARISELA, RITESH RIVERA Primary Care Unavailab le KAMALJIT BROWN Referring Unavailable MARISELA, RITESH RIVERA Primary Care Unavailab le RENETTA Fierro Attending Provider Dr. Violetta Mcfarlane Attending Provider Dr. Violetta Mcfarlane Primary Care Provider Ritesh Antonio MD Primary Care Provider Violetta Mcfarlane MD Primary Care Provider Unava ilable Dr. Ritesh Antonio Primary Care Provider Dr. Ritesh Antonio Referring Provider RENETTA Orta Attending Provider RENETTA Fierro Attending Provider Dr. Violetta Mcfarlane Attending Provider Dr. Violetta Mcfarlane Primary Care Provider Dr. Zachery Vanegas Referring Provider Dr. Zachery Vanegas Emergency Provider Dr. Quiana Dodd Admit Provider Dr. Quiana Dodd Attending Provider Dr. Quiana Dodd Other Provider Dr. Peterson Cordoba Attending Provider Dr. Peterson Cordoba Other Provider Dr. Herb Valenzuela Other Provider [phone] Dr. Violetta Mcfarlane Primary Care Provider Dr. Violetta Mcfarlane Attending Provider [phone]) Dr. Violetta Mcfarlane Referring Provider [phone]) Bre JACKSON, RENETTA Mcnulty Attending Provider Dr. Violetta Mcfarlane Primary Care Provider Dr. Violetta Mcfarlane Attending Provider 1(330) Dr. Violetta Mcfarlane Referring Provider 1(330) Erin, Dr. Flanagan Attending Provider 1(330) Dr. Violetta Mcfarlane Primary Care Provider Dr. Violetta Mcfarlane Attending Provider 1(330) Dr. Violetta Mcfarlane Referring Provider 1(330) Friend, Dr. Flanagan Attending Provider 1(330) DENYS, VIOLETTA G Primary Care Unavailable DENYS, VIOLETTA G Primary Care Unavailable DENYS, VIOLETTA G Primary Care Unavailable Dr. Violetta Mcfarlane MD Primary Care Provider 1( [phone]) Dr. Violetta Mcfarlane MD Referring Provider Friend Dr. Panchito CARTER Attending Provider Dr. Herb Simons MD Attending Provider Friend Dr. Panchito CARTER Referring Provider Dr. Violetta Mcfarlane MD Attending Provider Denys, Violetta Primary Care Unavailable Denys, Violetta Attending Unavailable [place], Violetta Referring Unavailable Denys, Violetta Primary Care Unavailable Denys, Violetta Attending Unavailable Denys, Violetta Referring Unavailable Denys, Violetta Primary Care Unavailable Vellanki, America Attending Unavailable Vellanki, America Referring Unavailable [place], Violetta Primary Care Unavailable Vellanki, America Attending Unavailable Vellanki, America Referring Unavailable Denys, Violetta Primary Care Unavailable Friend, Panchito Attending Unavailable Friend, Panchito Referring Unavailable Denys, Violetta Primary Care Unavailable [place], Violetta Attending Unavailable [place], Violetta Referring Unavailable Denys, Violetta Primary Care Unavailable Friend, Panchito Consulting Unavailable Friend, Panchito Attending Unavailable Denys, Violetta Referring Unavailable Denys, Violetta Primary Care Unavailable Friend, Panchito Attending Unavailable Denys, Violetta Referring Unavailable [place], Violetta Primary Care Unavailable Friend, Panchito Attending Unavailable [place], Violetta Referring Unavailable [place], Violetta Primary Care Unavailable Denys, Violetta Referring Unavailable Herb Simons Attending Unavailable Denys, Violetta Referring Unavailable [place], Violetta Primary Care Unavailable Denys, Violetta Attending Unavailable Friend, Panchito Attending Unavailable [place], Violetta Referring Unavailable Denys, Violetta Attending Unavailable Elisabeth Mcgill Attending Unavailable Denys, Violetta Primary Care Unavailable [place], Violetta Referring Unavailable Allergies Allergy Classification Reported Allergen(s) Allergy Type Date of Onset Reaction(s) Facility (20 sources) Amoxicillin; Translations: [amoxicillin] Drug Allergy 5 Eruption of skin (disorder), Rash, Hives, Itching [facility] Work Phone: (20 sources) Clindamycin Drug Allergy [address] [facility] (20 sources) HYDROcodone Drug Allergy [address] [facility] (20 sources) HYDROmorphone Drug Allergy [address] [facility] Comment on above: LOw BLOOD PRESSURE, makes her crazy (20 sources) Sulfamethoxazole Drug Allergy [address] [facility] (20 sources) Trimethoprim Drug Allergy [address] [facility] (11 sources) Acetaminophen / HYDROcodone; Translations: [acetaminophen-hydro codone] Drug Allergy 4 Mental state finding (finding), Rash, Hives, Itching, Mental Status Change [facility] (11 sources) Penicillins; Translations: [PENICILLINS] Drug Allergy 5 Hives, Itching, Rash [facility] (11 sources) rosuvastatin; Translations: [ROSUVASTATIN] Drug Allergy 9 Other: See Comments [facility] (2 sources) Acetaminophen / HYDROcodone; Translations: [HYDROCODONE-ACETAMI NOPHEN] Drug Allergy 4 [facility] Rep[facility] (3 sources) Doxycycline Drug Allergy [address] [facility] Comment on above: vomitting, rash (1 source) Amoxicillin Drug Allergy 5 [facility] Repository (1 source) Clindamycin Drug Allergy 5 [facility] (1 source) Doxycycline Drug Allergy 5 [facility] (1 source) HYDROcodone Drug Allergy 5 [facility] Rep[facility] (1 source) HYDROmorphone Drug Allergy 5 [facility] Rep[facility] (1 source) Sulfamethoxazole Drug Allergy 5 [facility] Rep[facility] (1 source) Trimethoprim Drug Allergy 5 [facility] Rep[facility] Medications Current Medications Medication Drug Class(es) Dates Sig (Normalized) Sig (Original) doxycycline monohydrate 100 mg oral tablet (2 sources) Tetracycline-clas s Drug Start: 09-06-2021 End: 09-11-2021 take 1 tablet by mouth twice daily doxycycline monohydrate 100 mg tablet Take 1 tablet by mouth twice daily for 5 days. 10 tablet 0 09/06/2021 09/11/2021 Active Start: 06-30-2018 End: 09-06-2021 take 1 capsule by mouth twice daily doxycycline monohydrate (MONODOX) 100 mg capsule Indications: Sinobronchitis Take 1 capsule by mouth twice daily. 20 capsule 0 06/30/2018 09/06/2021 Discontinued Comment on above: Take 1 tablet by chayo th twice daily for 5 days. Take 1 capsule by mo [facility] twice daily. magnesium citrate (3 sources) Start: take 1 mL by mouth twice daily as needed for constipation Magnesium Citrate solution Active 300 mL PO TWICE A DAY as needed for constipation 600 30 10 June 26, 2024 12:00am Start: 06-26-2024 take 1 mL by mouth t wice daily as needed for constipation Magnesium Citrate solution Active 300 mL PO TWICE A DAY as needed for constipation 600 30 June 26, 2024 12:00am Semaglutide 2 mg/dose (8 mg/3 mL) pen injector (3 sources) Start: 09-19-2023 Semaglutide 2 mg/dose (8 mg/3 mL) pen injector Active 2 mg SC EVERY WEEK September 19, 2023 12:00am traZODone hydrochloride 100 mg oral tablet (20 sources) Serotonin Reuptake Inhibitor Start: 12-12-2023 End: 02-23-2024 take 1 tablet by mouth at bedtime as needed Trazodone 100 mg tablet Active 100 mg PO AT BEDTIME as needed for for insomnia 90 0 February 23, 2024 8:41am Start: 10-12-2023 End: 12-12-2023 take 1 tablet by mouth at bedtime as needed Trazodone 50 mg tablet Discontinued 50 mg PO AT BEDTIME as needed for for insomnia 60 2 December 12, 2023 11:06am December 12, 2023 1:31pm Start: 09-27-2022 End: 10-12-2023 take 1 tablet by mouth at bedtime Trazodone 100 mg tablet Discontinued 100 mg PO AT BEDTIME 90 0 July 27, 2023 4:12pm October 12, 2023 4:52pm for insomnia Start: 10-12-2021 End: 10-12-2022 take 1.5 tablets by mouth once daily at bedtime traZODone (DESYREL) 100 mg tablet Take 1.5 tablets by mouth daily at bedtime. 135 tablet 3 10/12/2021 10/12/2022 Active Start: 07-15-2020 End: 09-27-2022 Trazodone 100 mg Tablet Disc ontinued 150 mg PO AT BEDTIME July 15, 2020 12:00am September 27, 2022 9:53am SLEEP Start: 07-15-2020 End: 09-27-2022 take 150 mg by mouth at bedtime Trazodone Discontinued 150 MG PO AT BEDTIME July 14, 2020 11:00pm September 27, 2022 8:53am Start: 10-31-2017 End: 10-12-2021 take 1 tablet by mouth at bedtime Trazodone 100 mg tablet Discontinued 100 mg PO AT BEDTIME October 31, 2017 12:00am June 11, 2020 10:04am Comment on above: TAKE ONE TABLET BY M OUTH AT BEDTIME Take 1.5 tablets by mouth daily at bedtime. Completed/Discontinued Medications Medication Drug Class(es) Dates Sig (Normalized) Sig (Original) acarbose 25 mg oral tablet (3 sources) alpha-Glucosidas e Inhibitor Start: 09-11-2015 End: 10-12-2021 take 1 tablet by mouth three times daily at mealtime Acarbose 25 mg tablet Indications: Reactive hypoglycemia , Impaired glucose tolerance test Take 25 mg by mouth three times daily with meals. 90 tablet 4 09/11/2015 10/12/2021 Discontinued Comment on above: Take 25 mg by mouth three times daily with meals. acetaminophen 325 mg / oxyCODONE hydrochloride 5 mg oral tablet (20 sources) Opioid Agonist Start: 04-16-2021 End: 04-28-2021 Oxycodone-Acetaminop hen (Percocet) 5-325 mg tablet Discontinued 1 {tbl} PO Q4H as needed for pain (scale score 7-10) 40 7 0 April 16, 2021 April 28, 2021 11:52am Acute postoperative pain Other acute postprocedural pain Start: 07-23-2020 End: 01-06-2021 take 7-10 tablets by mouth every six hours as needed for pain Oxycodone-Acetaminophen (Percocet) 2.5-325 mg tablet Discontinued 1 {tbl} PO EVERY 6 HOURS as needed for pain (scale score 7-10) 28 7 0 July 23, 2020 January 06, 2021 2:32pm Acute postoperative pain Other acute postprocedural pain 28 tabs (twenty-eight) Start: 12-10-2018 End: 12-21-2018 Oxycodone-Acetaminophen 1 TA BLET tablet Discontinued 1 {tbl} PO EVERY 6 HOURS NEEDED as needed for Pain 12 3 0 December 10, 2018 December 12, 2018 12:00am December 21, 2018 12:09am Calculus of left ureter Calculus of ureter Start: 12-10-2018 End: 12-21-2018 take 1 tablet by mouth every six hours as needed Oxycodone-Acetaminophen Discontinued 1 TABLET PO EVERY 6 HOURS NEEDED 12 3 December 10, 2018 December 20, 2018 11:09pm Start: 11-17-2016 End: 10-31-2017 Oxycodone-Acetaminophen 1 TA BLET tablet Discontinued 1 - 2 {tbl} PO EVERY 6 HOURS NEEDED as needed for Pain 10 November 17, 2016 12:00am October 31, 2017 1:57pm Start: 11-17-2016 End: 10-31-2017 take 1 tablet by mouth every six hours as needed Oxycodone-Acetaminophen Discontinued 1 - 2 TABLET PO EVERY 6 HOURS NEEDED November 16, 2016 11:00pm October 31, 2017 12:57pm Start: 11-07-2016 End: 10-31-2017 Oxycodone-Acetaminophen 1 TA BLET tablet Discontinued 1 {tbl} PO EVERY 4 HOURS NEEDED as needed for Pain November 07, 2016 12:00am October 31, 2017 1:57pm Start: 11-07-2016 End: 10-31-2017 take 1 tablet by mouth every four hours as needed Oxycodone-Acetaminophen Discontinued 1 TABLET PO EVERY 4 HOURS NEEDED November 06, 2016 11:00pm October 31, 2017 12:57pm aspirin 81 mg chewable tablet (15 sources) Platelet Aggregation Inhibitor, Nonsteroidal Anti-inflammatory Drug Start: 03-05-2022 End: 03-08-2022 take 1 tablet by mouth once daily Aspirin (Baby Aspirin) 81 mg Tablet,Chewable Discontinued 81 mg PO DAILY March 05, 2022 1:00am March 08, 2022 10:52am azithromycin 250 mg oral tablet (3 sources) Macrolide Antimicrobial Start: 02-25-2023 End: 03-03-2023 Azithromycin (Zithromax Z-Chu) 250 mg tablet Discontinued 0 PO .COMPLEX 6 0 February 25, 2023 1:00am March 03, 2023 3:03pm For 250 mg dose pack: take 500 mg today (day 1), then 250 mg for 4 days (days 2-5) PO cephalexin 500 mg oral capsule (12 sources) Cephalosporin Antibacterial Start: 03-03-2023 End: 03-13-2023 take 1 capsule by mouth every twelve hours Cephalexin 500 mg capsule Discontinued 500 mg PO Q12H 20 10 0 March 03, 2023 1:00am March 12, 2023 1:00am March 13, 2023 1:04am Start: 06-05-2022 End: 06-15-2022 take 1 capsule by mouth every eight hours Cephalexin 500 mg capsule Discontinued 500 mg PO Q8H 21 0 June 05, 2022 12:00am June 15, 2022 1:34pm start 06/06/22 ciprofloxacin 500 mg oral tablet (20 sources) Quinolone Antimicrobial Start: 12-10-2018 End: 06-11-2020 take 1 tablet by mouth twice daily Ciprofloxacin Hcl 500 MG tablet Discontinued 500 mg PO TWICE A DAY 14 0 December 10, 2018 12:00am June 11, 2020 9:51am Start: 11-17-2016 End: 10-31-2017 take 1 tablet by mouth twice daily Ciprofloxacin Hcl 250 MG tablet Discontinued 250 mg PO TWICE A DAY 8 0 November 17, 2016 12:00am October 31, 2017 1:57pm Start: 11-07-2016 End: 10-31-2017 take 1 tablet by mouth twice daily Ciprofloxacin Hcl 500 MG tablet Discontinued 500 mg PO TWICE A DAY 6 0 November 07, 2016 12:00am October 31, 2017 1:57pm diazePAM 5 mg oral tablet (20 sources) Benzodiazepine Start: 04-16-2021 End: 04-28-2021 take 1 tablet by mouth twice daily as needed for muscle spasms Diazepam (Valium) 5 mg tablet Discontinued 5 mg PO TWICE A DAY as needed for muscle spasm 10 5 0 April 16, 2021 1:00am April 28, 2021 11:51am Start: 07-23-2020 End: 09-18-2020 take 1 tablet by mouth twice daily as needed for muscle spasms Diazepam (Valium) 2 mg tablet Discontinued 2 mg PO TWICE A DAY as needed for spasms 14 0 July 23, 2020 12:00am September 18, 2020 1:34pm 14 tabs (fourteen) 24 hr dilTIAZem hydrochloride 120 mg extended release oral capsule (20 sources) Calcium Channel Reese Start: 03-05-2022 End: 10-18-2022 take 1 capsule by mouth once daily Diltiazem Hcl 120 mg capsule,extended release 24hr Discontinued 120 mg PO DAILY 90 3 June 07, 2022 4:42pm October 18, 2022 11:15am diphenhydrAMINE hydrochloride 25 mg oral capsule (20 sources) Histamine-1 Receptor Antagonist Start: 04-16-2021 End: 04-28-2021 take 1 capsule by mouth three times daily as needed Diphenhydramine Hcl (Benadryl) 25 mg capsule Discontinued 25 mg PO THREE TIMES A DAY as needed for itching 30 10 0 April 16, 2021 1:00am April 28, 2021 11:52am docusate sodium 100 mg oral capsule (20 sources) Start: 04-16-2021 End: 05-19-2021 take 1 capsule by mouth once daily Docusate Sodium (Colace) 100 mg capsule Discontinued 100 mg PO DAILY 30 30 0 April 16, 2021 1:00am May 19, 2021 10:59am Start: 07-23-2020 End: 01-06-2021 take 1 capsule by mouth twice daily Docusate Sodium (Colace) 100 mg capsule Discontinued 100 mg PO TWICE A DAY 60 0 July 23, 2020 12:00am January 06, 2021 2:32pm DULoxetine 40 mg delayed release oral capsule (20 sources) Serotonin and Norepinephrine Reuptake Inhibitor Start: 12-09-2023 End: 08-08-2024 take 1 capsule by mouth once daily Duloxetine 40 mg capsule,delayed release(DR/EC) Discontinued 40 mg PO daily 90 0 May 27, 2024 8:33pm August 08, 2024 9:11am Start: 12-09-2023 End: 12-09-2023 Duloxetine 40 mg capsule,del ayed release(DR/EC) Discontinued 40 mg PO .q48 60 0 December 09, 2023 7:59am December 09, 2023 9:48am Start: 11-07-2023 End: 12-09-2023 Duloxetine 20 mg capsule,del ayed release(DR/EC) Discontinued 20 mg PO .q48 30 0 November 07, 2023 11:59am December 09, 2023 7:59am Start: 10-12-2023 End: 11-07-2023 take 1 capsule by mouth once daily Duloxetine 20 mg capsule,delayed release(DR/EC) Discontinued 20 mg PO DAILY 60 0 October 12, 2023 4:51pm November 07, 2023 12:01pm Start: 05-11-2023 End: 10-12-2023 take 1 capsule by mouth once daily Duloxetine 40 mg capsule,delayed release(DR/EC) Discontinued 40 mg PO DAILY 90 0 July 25, 2023 8:22am October 12, 2023 4:52pm Start: 09-27-2022 End: 05-11-2023 take 1 capsule by mouth once daily Duloxetine (Cymbalta) 20 mg capsule,delayed release(DR/EC) Discontinued 20 mg PO DAILY 90 0 March 01, 2023 5:27pm May 11, 2023 11:25am escitalopram 10 mg oral tablet (20 sources) Serotonin Reuptake Inhibitor Start: 03-13-2024 End: 09-04-2024 take 5 mg by mouth at bedtime Escitalopram Oxalate 10 mg tablet Discontinued 5 mg PO AT BEDTIME March 13, 2024 2:15pm September 04, 2024 2:16pm Start: 12-12-2023 End: 03-13-2024 take 1 tablet by mouth at bedtime Escitalopram Oxalate 10 mg tablet Discontinued 10 mg PO AT BEDTIME 90 0 February 23, 2024 8:41am March 13, 2024 2:15pm Start: 09-27-2022 End: 12-12-2023 take 1 tablet by mouth at bedtime Escitalopram Oxalate 20 mg tablet Discontinued 20 mg PO AT BEDTIME 30 0 November 07, 2023 12:00pm December 12, 2023 1:31pm Start: 06-15-2022 End: 09-27-2022 Escitalopram Oxalate 10 mg t ablet Discontinued 15 mg PO AT BEDTIME June 15, 2022 2:22pm September 27, 2022 9:53am Start: 06-15-2022 End: 09-27-2022 take 15 mg by mouth at bedtime Escitalopram Oxalate Di scontinued 15 MG PO AT BEDTIME June 15, 2022 1:22pm September 27, 2022 8:53am Start: 04-26-2022 End: 06-15-2022 take 1 tablet by mouth at bedtime Escitalopram Oxalate 10 mg tablet Discontinued 10 mg PO AT BEDTIME June 02, 2022 11:53am June 15, 2022 2:23pm Start: 04-19-2022 End: 04-26-2022 take 5 mg by mouth once daily Escitalopram Oxalate 10 mg tablet Discontinued 5 mg PO DAILY 90 1 April 19, 2022 12:33pm April 26, 2022 9:58am Start: 04-19-2022 End: 04-26-2022 take 5 mg by mouth once daily Escitalopram Oxalate Dis continued 5 MG PO DAILY April 19, 2022 11:33am April 26, 2022 8:58am Start: 03-08-2022 End: 04-19-2022 take 1 tablet by mouth once daily Escitalopram Oxalate (Lexapro) 5 mg tablet Discontinued 5 mg PO DAILY 22 03March 30, 2022 4:05pm April 19, 2022 12:35pm fluticasone propionate 0.05 mg/actuat metered dose nasal spray (3 sources) Corticosteroid Start: 06-30-2018 End: 10-12-2021 take 2 spray(s) by mouth once daily fluticasone (FLONASE) 50 mcg/actuation nasal spray Indications: Sinobronchitis Use 2 Sprays in each nostril once daily. Rinse mouth after use. 1 Bottle 0 06/30/2018 10/12/2021 Discontinued (Course of therapy completed) Comment on above: Use 2 Sprays in each nostril once daily. Rinse mouth after use. folic acid 1 mg oral tablet (10 sources) Start: 06-02-2022 End: 09-27-2022 take 1 tablet by mouth twice daily Folic Acid 1 mg tablet Discontinued 1 mg PO TWICE A DAY June 02, 2022 12:00am September 27, 2022 8:44am supplement folic acid 1 mg / polysaccharide iron complex 150 mg / vitamin b12 0.025 mg oral capsule (20 sources) Vitamin B12 Start: 06-23-2021 End: 01-28-2022 take 1 capsule by mouth once daily POLY-IRON 150 FORTE 150-25-1 mg-mcg-mg cap Take 1 capsule by mouth once daily. 0 06/23/2021 01/28/2022 Discontinued Start: 04-16-2021 take 1 capsule by [facility] once daily Iron Ps [id number] Acid (Poly-Iron 150 Forte) 150-25-1 mg-mcg-mg capsule Active 1 CAP PO DAILY April 16, 2021 2:40pm Start: 07-23-2020 End: 01-06-2021 Iron Ps [id number] Ac id 150-25-1 mg-mcg-mg capsule Discontinued 1 NMA PO DAILY 30 July 23, 2020 12:00am January 06, 2021 2:33pm Start: 07-23-2020 End: 01-06-2021 take 1 capsule by mouth once daily Iron Ps [id number]-R76-[id number] Acid Discontinued 1 CAP PO DAILY July 22, 2020 11:00pm January 06, 2021 1:33pm Comment on above: Take 1 capsule by [facility] once daily. 12 hr guaiFENesin 600 mg extended release oral tablet (3 sources) Start: 2018 End: 2021 take 2 tablets by mouth twice daily guaiFENesin (MUCINEX) 600 mg 12 hr tablet Indications: Bronchitis Take 2 tablets by mouth twice daily. 60 tablet 0 06/07/2018 10/12/2021 Discontinued (Course of therapy completed) Comment on above: Take 2 tablets by [facility] twice daily. hydroxychloroquine sulfate 200 mg oral tablet (3 sources) Antimalarial, Antirheumatic Agent Start: 2023 End: 2023 take 1 tablet by mouth once daily Hydroxychloroquine (Plaquenil) 200 mg tablet Discontinued 200 mg PO DAILY May 11, 2023 12:00am December 12, 2023 12:51pm hydrOXYzine hydrochloride 25 mg oral tablet (20 sources) Antihistamine Start: 2020 End: 2020 take 1 tablet by mouth three times daily as needed Hydroxyzine Hcl 25 mg tablet Discontinued 25 mg PO THREE TIMES A DAY as needed for itching 22 03July 23, 2020 12:00am January 06, 2021 2:34pm Lactulose (3 sources) Osmotic Laxative Start: 2024 End: 2024 take 10 g by mouth once daily Lactulose 10 gram/15 mL solution Discontinued 10 g PO daily 473 0 April 16, 2024 1:00am June 26, 2024 10:38am Start: 04-16-2024 End: 06-26-2024 take 10 g by mouth once daily Lactulose 10 gram/15 mL solution Discontinued 10 g PO daily April 16, 2024 1:00am June 26, 2024 10:38am levoFLOXacin 500 mg oral tablet (20 sources) Quinolone Antimicrobial Start: 04-16-2021 End: 04-28-2021 take 1 tablet by mouth once daily Levofloxacin 500 mg tablet Discontinued 500 mg PO DAILY 5 April 16, 2021 1:00am April 28, 2021 11:52am Start: 07-23-2020 End: 01-06-2021 take 1 tablet by mouth once daily Levofloxacin 500 mg tablet Discontinued 500 mg PO DAILY 14 July 23, 2020 12:00am January 06, 2021 2:33pm linaclotide 0.072 mg oral capsule (20 sources) Guanylate Cyclase-C Agonist Start: 01-05-2023 End: 01-10-2023 take 1 capsule by mouth once daily Linaclotide (Linzess) 72 mcg capsule Discontinued 72 ug PO DAILY 30 30 January 05, 2023 1:00am January 10, 2023 3:52pm Start: 06-15-2022 End: 10-18-2022 take 1 capsule by mouth once daily Linaclotide 145 mcg capsule Discontinued 145 ug PO DAILY 90 September 06, 2022 8:17am October 18, 2022 11:16am IRRITABLE BOWELS Start: 04-19-2022 End: 06-15-2022 take 1 capsule by mouth once daily Linaclotide (Linzess) 72 mcg capsule Discontinued 72 ug PO DAILY June 02, 2022 11:53am June 15, 2022 2:22pm IRRITABLE BOWELS loratadine 10 mg oral tablet (3 sources) Start: 06-30-2018 End: 10-12-2021 take 1 tablet by mouth once daily loratadine (CLARITIN) 10 mg tablet Indications: Sinobronchitis Take 1 tablet by mouth once daily. 30 tablet 0 06/30/2018 10/12/2021 Discontinued (Course of therapy completed) Comment on above: Take 1 tablet by [facility] once daily. lubiprostone 0.024 mg oral capsule (10 sources) Chloride Channel Activator Start: 01-10-2023 End: 08-22-2023 take 1 capsule by mouth once daily Lubiprostone (Amitiza) 24 mcg capsule Discontinued 24 ug PO DAILY 30 June 17, 2023 10:56am August 22, 2023 10:48am Magnesium Citrate,Mag Oxide 250 mg capsule (3 sources) Start: 03-26-2024 End: 06-26-2024 take 4 capsules by mouth twice daily Magnesium Citrate,Mag Oxide 250 mg capsule Discontinued 1000 mg PO TWICE A DAY 240 30 March 26, 2024 1:00am June 26, 2024 10:39am Start: 03-26-2024 End: 06-26-2024 take 4 capsules by mouth twice daily Magnesium Citrate,Mag Oxide 250 mg capsule Discontinued 1000 mg PO TWICE A DAY 240 March 26, 2024 1:00am June 26, 2024 10:39am meclizine hydrochloride 25 mg oral tablet (2 sources) Antiemetic Start: 04-22-2021 End: 10-12-2021 take 1 tablet by mouth every eight hours as needed meclizine (ANTIVERT) 25 mg tab Take 1 tablet by mouth three times daily as needed. 0 04/22/2021 10/12/2021 Discontinued (Course of therapy completed) Comment on above: Take 1 tablet by chayo th three times daily as needed. methotrexate 2.5 mg oral tablet (10 sources) Folate Analog Metabolic Inhibitor Start: 06-02-2022 End: 09-27-2022 take 5 tablets by mouth once Methotrexate Sodium 2.5 mg tablet Discontinued 12.5 mg PO SA June 02, 2022 12:00am September 27, 2022 8:44am On Hold: hold for one more week Start: 06-02-2022 End: 09-27-2022 Methotrexate Sodium Disconti nued 12.5 MG PO June 01, 2022 11:00pm September 27, 2022 7:44am methylPREDNISolone 4 mg oral tablet (3 sources) Corticosteroid Start: 03-03-2023 End: 03-09-2023 take 1 tablet by mouth once Methylprednisolone (Medrol (Chu)) 4 mg tablets,dose pack Discontinued 4 mg PO per package directions 21 6 0 March 03, 2023 1:00am March 08, 2023 1:00am March 09, 2023 1:05am metoclopramide 5 mg oral tablet (6 sources) Dopamine-2 Receptor Antagonist Start: 03-26-2024 End: 06-26-2024 take 1 tablet by mouth twice daily Metoclopramide Hcl 5 mg tablet Discontinued 5 mg PO TWICE A DAY 60 0 March 26, 2024 1:00am June 26, 2024 10:38am Start: 12-26-2023 End: 01-16-2024 take 1 tablet by mouth twice daily 30 minutes before mealtime Metoclopramide Hcl 5 mg tablet Discontinued 5 mg PO TWICE A DAY 42 21 0 December 26, 2023 1:00am January 15, 2024 1:00am January 16, 2024 1:08am administer 30 minutes before meals metoprolol tartrate 50 mg oral tablet (20 sources) beta-Adrenergic Reese Start: 01-27-2022 End: 03-05-2022 take 1 tablet by mouth twice daily Metoprolol Tartrate 50 mg Tablet Discontinued 50 mg PO TWICE A DAY 60 0 January 27, 2022 1:00am March 05, 2022 10:23am Comment on above: Take 1 tablet by chayo th twice daily. miconazole nitrate 40 mg/ml vaginal cream (8 sources) Azole Antifungal Start: 06-15-2022 End: 06-18-2022 Miconazole Nitrate (Monistat 3) 200 mg/5 gram (4 %) cream Discontinued 1 NMA VAGINAL AT BEDTIME 15 3 0 June 15, 2022 12:00am June 17, 2022 12:00am June 18, 2022 12:05am Start: 06-15-2022 End: 06-18-2022 Miconazole Nitrate (Monistat 3) 200 mg/5 gram (4 %) cream Discontinued 1 APPFUL VAGINAL AT BEDTIME 15 3 June 14, 2022 11:00pm June 17, 2022 11:05pm nitrofurantoin, macrocrystals 25 mg / nitrofurantoin, monohydrate 75 mg oral capsule (7 sources) Nitrofuran Antibacterial Start: 09-27-2022 End: 10-02-2022 take 1 capsule by mouth every twelve hours at mealtime Nitrofurantoin Monohyd/M-Cryst (Macrobid) 100 mg capsule Discontinued 100 mg PO Q12H 10 5 0 September 27, 2022 12:00am October 01, 2022 12:00am October 02, 2022 12:10am must administer with a meal/food ondansetron 8 mg disintegrating oral tablet (20 sources) Serotonin-3 Receptor Antagonist Start: 06-02-2022 End: 06-15-2022 take 5 mg by mouth once daily Ondansetron 8 mg tablet,disintegrati ng Discontinued 5 mg PO DAILY June 02, 2022 12:00am June 15, 2022 1:35pm NAUSEA Start: 06-02-2022 End: 06-15-2022 take 5 mg by mouth once daily Ondansetron Discontinued 5 MG PO DAILY June 01, 2022 11:00pm June 15, 2022 12:35pm Start: 03-02-2022 End: 03-08-2022 take 1 tablet by mouth every eight hours as needed for nausea and vomiting Ondansetron 4 mg tablet,disintegrating Discontinued 4 mg PO Q8H as needed for nausea and vomiting 10 0 March 02, 2022 1:00am March 08, 2022 10:53am Start: 02-26-2022 End: 03-08-2022 take 1 tablet by mouth every eight hours as needed for nausea and vomiting Ondansetron Hcl 8 mg tablet Discontinued 8 mg PO Q8H as needed for nausea and vomiting 10 0 February 26, 2022 1:00am March 08, 2022 10:53am phentermine hydrochloride 37.5 mg oral tablet (5 sources) Sympathomimetic Amine Anorectic Start: 09-11-2021 End: 01-28-2022 take 1 tablet by mouth once daily 1 hour(s) after mealtime Phentermine HCl 37.5 mg tablet TAKE 1 TABLET BY MOUTH EVERY DAY AT LEAST 1 HOUR AFTER MEALS 0 09/11/2021 01/28/2022 Discontinued Comment on above: TAKE 1 TABLET BY CHAYO EVERY DAY AT LEAST 1 HOUR AFTER MEALS plecanatide 3 mg oral tablet (3 sources) Start: 09-20-2023 End: 12-26-2023 take 1 tablet by mouth once daily Plecanatide (Trulance) 3 mg tablet Discontinued 3 mg PO DAILY 30 0 September 20, 2023 12:00am December 26, 2023 1:51pm polyethylene glycol 3350 50823 mg powder for oral solution (20 sources) Osmotic Laxative Start: 01-17-2016 End: 10-31-2017 Polyethylene Glycol 3350 17 GM packet Discontinued 17 g PO NEEDED as needed for Constipation January 17, 2016 1:00am October 31, 2017 1:58pm polyethylene glycol 3350 356309 mg / potassium chloride 2970 mg / sodium bicarbonate 6740 mg / sodium chloride 5860 mg / sodium sulfate 91310 mg powder for oral solution (20 sources) Osmotic Laxative Start: 08-26-2023 End: 09-19-2023 Peg 3350-Electrolytes (Golytely) 236-22.74-6.74 -5.86 gram recon soln Discontinued 240 mL PO Q10M 4000 0 August 26, 2023 12:00am September 19, 2023 11:08am until fecal effluent is clear Start: 03-03-2022 End: 05-12-2022 GAVILYTE-G 236-22.74-6.74 -5 .86 gram suspension Start: 03-02-2022 End: 03-08-2022 Peg 3350-Electrolytes (Gavil yte-G) 236-22.74-6.74 -5.86 gram recon soln Discontinued 240 mL PO EVERY 10 MINUTES NEEDED 4000 0 March 02, 2022 1:00am March 08, 2022 10:53am until fecal effluent is clear Start: 03-02-2022 End: 03-08-2022 Peg 3350-Electrolytes (Gavil yte-G) 236-22.74-6.74 -5.86 gram recon soln Discontinued 240 ML PO EVERY 10 MINUTES NEEDED 3999March 02, 2022 12:00am March 08, 2022 9:53am until fecal effluent is clear polysaccharide iron complex 150 mg oral capsule (2 sources) Start: 09-12-2021 End: 10-12-2021 iron polysaccharide complex (FERREX-150) 150 mg iron capsule Take 150 mg by mouth once daily. 0 09/12/2021 10/12/2021 Discontinued (Course of therapy completed) Comment on above: Take 150 mg by mouth once daily. potassium citrate 15 meq extended release oral tablet (20 sources) Start: 11-07-2016 End: 10-31-2017 take 1 tablet by mouth twice daily Potassium Citrate 15 MEQ tablet extended release Discontinued 15 meq PO TWICE A DAY 60 November 07, 2016 12:00am October 31, 2017 1:58pm prochlorperazine 5 mg oral tablet (20 sources) Phenothiazine Start: 06-05-2022 End: 09-27-2022 take 1 tablet by mouth three times daily as needed for nausea and vomiting Prochlorperazine Maleate (Compazine) 5 mg tablet Discontinued 5 mg PO THREE TIMES A DAY as needed for nausea and vomiting 20 August 04, 2022 10:50am September 27, 2022 8:43am promethazine hydrochloride 25 mg oral tablet (20 sources) Phenothiazine Start: 07-23-2020 End: 01-06-2021 take 1 tablet by mouth every six hours as needed for nausea and vomiting Promethazine 25 mg tablet Discontinued 25 mg PO EVERY 6 HOURS as needed for nausea and vomiting 30 July 23, 2020 12:00am January 06, 2021 2:33pm Semaglutide (Weight Loss) (10 sources) Start: 06-02-2022 End: 10-18-2022 Semaglutide (Weight Loss) 0.25 mg/0.5 mL Pen Injector Discontinued 0.25 mg SC EVERY WEEK June 02, 2022 12:00am October 18, 2022 11:16am administer weeks 1 through 4 of therapy Start: 06-02-2022 End: 10-18-2022 Semaglutide (Weight Loss) Di scontinued 0.25 MG SC EVERY WEEK June 01, 2022 11:00pm October 18, 2022 10:16am administer weeks 1 through 4 of therapy Start: 06-02-2022 End: 10-18-2022 Semaglutide (Weight Loss) Di scontinued 0.25 MG SC EVERY WEEK June 02, 2022 12:00am October 18, 2022 11:16am administer weeks 1 through 4 of therapy Start: 06-02-2022 Semaglutide (W eight Loss) Active 0.25 MG SC EVERY WEEK June 02, 2022 12:00am administer weeks 1 through 4 of therapy SUMAtriptan 25 mg oral tablet (20 sources) Serotonin-1b and Serotonin-1d Receptor Agonist Start: 08-22-2023 End: 12-12-2023 take 1 tablet by mouth every hour as needed for headache Sumatriptan Succinate (Imitrex) 25 mg tablet Discontinued 0 mg PO .COMPLEX as needed for migraine headache August 22, 2023 12:00am December 12, 2023 3:26pm take 1 tab at onset of headache; if no relief may repeat 1 tab after at least 2 hrs; max = 4 tabs/24 hr orally PRN; Start: 10-18-2022 End: 08-22-2023 take 1 tablet by mouth every two hours Sumatriptan Succinate (Imitrex) 25 mg tablet Discontinued 0 PO .COMPLEX 10 December 15, 2022 8:32am February 25, 2023 4:59pm take 1 tab at onset of headache; if no relief may repeat 1 tab after at least 2 hrs; max = 4 tabs/24 hr PO Tenapanor (Ibsrela) 50 mg tablet (3 sources) Start: 03-14-2024 End: 06-26-2024 take 1 tablet by mouth once daily at dinner Tenapanor (Ibsrela) 50 mg tablet Discontinued 50 mg PO TWICE A DAY 60 5 March 14, 2024 1:00am June 26, 2024 10:38am must administer immediately before first meal of day/breakfast and dinner Start: 03-14-2024 End: 06-26-2024 take 1 tablet by mouth once daily at dinner Tenapanor (Ibsrela) 50 mg tablet Discontinued 50 mg PO TWICE A DAY 60 March 14, 2024 1:00am June 26, 2024 10:38am must administer immediately before first meal of day/breakfast and dinner Tenapanor 50 mg tablet (6 sources) Start: 12-27-2023 End: 06-26-2024 take 1 tablet by mouth once daily at dinner Tenapanor 50 mg tablet Discontinued 50 mg PO TWICE A DAY 60 2 December 27, 2023 8:13am June 26, 2024 10:38am must administer immediately before first meal of day/breakfast and dinner Start: 12-27-2023 End: 06-26-2024 take 1 tablet by mouth once daily at dinner Tenapanor 50 mg tablet Discontinued 50 mg PO TWICE A DAY 60 December 27, 2023 8:13am June 26, 2024 10:38am must administer immediately before first meal of day/breakfast and dinner Start: 12-26-2023 End: 12-27-2023 take 1 tablet by mouth once daily at dinner Tenapanor 50 mg tablet Discontinued 50 mg PO TWICE A DAY 60 2 December 26, 2023 1:00am December 27, 2023 8:21am must administer immediately before first meal of day/breakfast and dinner Start: 12-26-2023 End: 12-27-2023 take 1 tablet by mouth once daily at dinner Tenapanor 50 mg tablet Discontinued 50 mg PO TWICE A DAY 60 December 26, 2023 1:00am December 27, 2023 8:21am must administer immediately before first meal of day/breakfast and dinner topiramate 25 mg oral tablet (20 sources) Start: 01-27-2022 End: 06-25-2022 take 1 tablet by mouth at bedtime Topiramate 25 mg tablet Discontinued 25 mg PO AT BEDTIME 30 2 May 12, 2022 2:49pm June 02, 2022 11:54am End: 10-12-2021 take 1 tablet by mouth once daily at bedtime topiramate 200 mg tablet Take 200 mg by mouth daily at bedtime. 0 10/12/2021 Discontinued Comment on above: Take 200 mg by mouth daily at bedtime. Take 1 tablet by chayo th once daily. Problems Active Problems Problem Classification Problem Date Documented Da te Episodic/Chronic Acute bronchitis (3 sources) Acute bronchitis; Translations: [Acute bronchitis, unspecified] 03-03-2023 Episodic Acute posthemorrhagic anemia (20 sources) Anemia following acute postoperative blood loss; Translations: [Acute posthemorrhagic anemia] Onset: 2 Episodic Comment on above: will begin Iron supp lements and recheck in a week Administrative/social admission (6 sources) Persons encountering health services in other specified circumstances; Translations: [Other reasons for seeking consultation] 03-08-2022 Episodic Anxiety disorders (20 sources) Anxiety disorder, unspecified; Translations: [Anxiety state, unspecified] 03-08-2022 Chronic Cardiac dysrhythmias (20 sources) Ventricular bigeminy; Translations: [Other specified cardiac arrhythmias] Onset: 2 Chronic Cardiac dysrhythmias (20 sources) Palpitations; Translations: [Palpitations] Onset: 2 10-09-2021 Episodic Deficiency and other anemia (20 sources) Anemia; Translations: [Anemia, unspecified] Onset: 2 10-09-2021 Episodic Comment on above: IN THE PAST Disorders of lipid metabolism (20 sources) Hyperlipidemia; Translations: [Hyperlipidemia, unspecified] Onset: 2 10-09-2021 Chronic E Codes: Adverse effects of medical drugs (3 sources) Adverse reaction to drug; Translations: [Adverse effect of unspecified drugs, medicaments and biological substances, initial encounter] 02-25-2023 Episodic Genitourinary symptoms and ill-defined conditions (3 sources) Dysuria; Translations: [Dysuria] 09-27-2022 Episodic Headache; including migraine (20 sources) Migraine; Translations: [Migraine, unspecified, not intractable, without status migrainosus] Onset: 2 Chronic Immunity disorders (20 sources) Patient immunocompromised; Translations: [Immunodeficiency, unspecified] Onset: 4 06-02-2022 Chronic Immunizations and screening for infectious disease (20 sources) Contact with and (suspected) exposure to other viral communicable diseases; Translations: [Contact with or suspected exposure to other viral communicable disease] Episodic Malaise and fatigue (20 sources) Malaise and fatigue; Translations: [Other malaise] Onset: 6 12-31-2005 Episodic Mood disorders (19 sources) Major depressive disorder, single episode, moderate; Translations: [Major depressive affective disorder, single episode, moderate] 03-08-2022 Chronic Nausea and vomiting (20 sources) Nausea; Translations: [Nausea] Onset: 2 10-09-2021 Episodic Comment on above: r/t GLP-1 Nonmalignant breast conditions (20 sources) Large breast; Translations: [Hypertrophy of breast] Onset: 2 Episodic Nutritional deficiencies (6 sources) Vitamin D deficiency, unspecified; Translations: [Unspecified vitamin D deficiency] 03-08-2022 Chronic Nutritional deficiencies (6 sources) Iron deficiency; Translations: [Iron deficiency anemia, unspecified] 03-08-2022 Episodic Other aftercare (4 sources) Encounter for follow-up examination after completed treatment for conditions other than malignant neoplasm; Translations: [Other follow-up examination] Onset: 8 06-15-2022 Episodic Other connective tissue disease (20 sources) Diastasis recti; Translations: [Separation of muscle (nontraumatic), other site] 02-04-2022 Episodic Other connective tissue disease (6 sources) Other symptoms and signs involving the nervous system; Translations: [Other symptoms involving nervous and musculoskeletal systems] 03-08-2022 Episodic Other connective tissue disease (1 source) Ganglion cyst; Translations: [Ganglion, unspecified site] 09-04-2024 Episodic Other ear and sense organ disorders (3 sources) Other specified disorders of ear, unspecified ear; Translations: [Other disorders of ear] 10-18-2022 Episodic Other endocrine disorders (10 sources) Reactive hypoglycemia; Translations: [Other hypoglycemia] Onset: 6 09-11-2015 Chronic Other female genital disorders (2 sources) Other specified noninflammatory disorders of vagina; Translations: [Pruritus of genital organs] 06-15-2022 Episodic Other gastrointestinal disorders (19 sources) Irritable bowel syndrome with constipation; Translations: [Irritable bowel syndrome] 03-08-2022 Chronic Other gastrointestinal disorders (2 sources) Irritable bowel syndrome characterized by constipation; Translations: [Irritable bowel syndrome with constipation] 09-04-2024 Chronic Other gastrointestinal disorders (9 sources) Constipation; Translations: [Constipation, unspecified] 11-03-2022 Episodic Other gastrointestinal disorders (3 sources) Constipation, unspecified; Translations: [Constipation, unspecified] 11-03-2022 Episodic Other gastrointestinal disorders (3 sources) Chronic constipation; Translations: [Other constipation] 08-02-2023 Episodic Other hereditary and degenerative nervous system conditions (9 sources) Restless legs; Translations: [Restless legs syndrome] Onset: 7 10-09-2021 Chronic Other inflammatory condition of skin (20 sources) Intertrigo; Translations: [Erythema intertrigo] Onset: 2 10-09-2021 Episodic Comment on above: inframammary intertr igo Other inflammatory condition of skin (20 sources) Pruritus caused by drug; Translations: [Other pruritus] Onset: 2 10-09-2021 Episodic Comment on above: probably medication related from the [facility] add to allergy list Other inflammatory condition of skin (5 sources) Erythema intertrigo; Translations: [Other specified erythematous conditions] Episodic Other liver diseases (1 source) Elevated liver enzymes level; Translations: [Abnormal levels of other serum enzymes] Episodic Other liver diseases (6 sources) Abnormal levels of other serum enzymes; Translations: [Other nonspecific abnormal serum enzyme levels] 03-08-2022 Episodic Other lower respiratory disease (15 sources) Dyspnea on exertion; Translations: [Other forms of dyspnea] 03-04-2022 Episodic Other lower respiratory disease (7 sources) Other forms of dyspnea; Translations: [Other respiratory abnormalities] Episodic Other nervous system disorders (20 sources) Acute postoperative pain; Translations: [Other acute postprocedural pain] Onset: 2 10-09-2021 Episodic Other nervous system disorders (1 source) Other acute postprocedural pain; Translations: [Other acute postoperative pain] Episodic Other non-traumatic joint disorders (20 sources) Shoulder pain; Translations: [Pain in unspecified shoulder] Onset: 2 10-09-2021 Episodic Comment on above: bilateral shoulder p ain from shoulder grooving from the weight of her breasts on her bra straps Other non-traumatic joint disorders (5 sources) Pain in unspecified shoulder; Translations: [Pain in joint, shoulder region] Episodic Other non-traumatic joint disorders (1 source) Pain in left shoulder; Translations: [Left shoulder pain] 09-04-2024 Episodic Other nutritional; endocrine; and metabolic disorders (9 sources) Disorder of ketone metabolism; 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] Onset: 8 10-09-2021 Chronic Other nutritional; endocrine; and metabolic disorders (20 sources) Excessive weight loss; Translations: [Abnormal weight loss] Onset: 2 10-09-2021 Episodic Comment on above: 50 lbs over 2 years Other nutritional; endocrine; and metabolic disorders (5 sources) Abnormal weight loss; Translations: [Loss of weight] Episodic Other nutritional; endocrine; and metabolic disorders (10 sources) Abnormal weight gain; Translations: [Abnormal weight gain] 04-19-2022 Episodic Other skin disorders (20 sources) Disorder of skin and/or subcutaneous tissue; Translations: [Excessive and redundant skin and subcutaneous tissue] Onset: 2 10-09-2021 Episodic Other upper respiratory disease (1 source) Congestion of nasal sinus; Translations: [Nasal congestion] Episodic Other upper respiratory infections (3 sources) Acute sinusitis; Translations: [Acute sinusitis, unspecified] 02-25-2023 Episodic Comment on above: Patient has a histor y of recurrent sinusitis and has followed with ENT in the past. Symptoms have been present for 14 days, reasonable to pursue antibiotic treatment. Patient has multiple allergies to antibiotics most recently doxycycline. She states she has had success with Zithromax in the past. We discussed high resistance rates to Zithromax per recent studies however patient would like to continue with Zithromax therapy. Will prescribe Z-Chu with caution given duloxetine. Will avoid fluoroquinolones currently as patient is on both duloxetine and trazodone which are QT prolonging medications. Try to avoid trazodone over the next 5 days while on zithromax.Patient encouraged to try intranasal steroids she states she has tried this in the past with little to no relief. Patient also encouraged may try nasal saline irrigation. Drink plenty of fluids to thin secretions. If no improvement, symptoms worsen call office. Residual codes; unclassified (6 sources) Family history of malignant neoplasm of breast; Translations: [Family history of malignant neoplasm of breast] Onset: 8 Episodic Residual codes; unclassified (20 sources) Procedure related finding; Translations: [Encounter for cosmetic surgery] 02-04-2022 Episodic Residual codes; unclassified (20 sources) Family history of breast cancer; Translations: [Family history of malignant neoplasm of breast] Onset: 8 10-09-2021 Episodic Residual codes; unclassified (4 sources) Other specified postprocedural states; Translations: [Other postprocedural status] Episodic Residual codes; unclassified (6 sources) Procedure and treatment not carried out because of patient's decision for unspecified reasons; Translations: [Surgical or other procedure not carried out because of patient's decision] 03-08-2022 Episodic Residual codes; unclassified (6 sources) Immunization not carried out because of patient refusal; Translations: [Vaccination not carried out because of patient refusal] 03-08-2022 Episodic Residual codes; unclassified (6 sources) Patient encounter status; Translations: [Encounter for cosmetic surgery] 07-15-2024 Episodic Rheumatoid arthritis and related disease (1 source) Inflammatory polyarthropathy; Translations: [Inflammatory polyarthropathy] Onset: 5 Chronic Screening and history of mental health and substance abuse codes (20 sources) Ex-smoker; Translations: [Personal history of nicotine dependence] Onset: 2 Episodic Skin and subcutaneous tissue infections (16 sources) Cellulitis of chest wall ; Translations: [Cellulitis of chest wall] 06-02-2022 Episodic Spondylosis; intervertebral disc disorders; other back problems (20 sources) Chronic thoracic back pain; Translations: [Pain in thoracic spine] Onset: 2 Episodic Substance-related disorders (9 sources) Chronic abuse of laxatives; Translations: [Abuse of laxatives] Onset: 10-09-2021 Chronic Viral infection (1 source) Viral disease; Translations: [Viral infection, unspecified] Episodic Past or Other Problems Problem Classification Problem Date Documented Da te Episodic/Chronic Calculus of urinary tract (9 sources) Kidney stone; Translations: [Calculus of kidney] Onset: 06-16-2017 10-09-2021 Episodic Conditions associated with dizziness or vertigo (9 sources) Dizziness; Translations: [Dizziness and giddiness] Onset: 04-22-2021 10-09-2021 Episodic Deficiency and other anemia (10 sources) Iron deficiency anemia; Translations: [Iron deficiency anemia, unspecified] Onset: 05-18-2021 10-09-2021 Episodic Deficiency and other anemia (1 source) Other iron deficiency anemias; Translations: [Other iron deficiency anemia] Onset: 10-09-2021 Episodic Hemorrhoids (9 sources) Hemorrhoids; Translations: [Unspecified hemorrhoids] Onset: 10-09-2021 10-09-2021 Episodic Other and unspecified benign neoplasm (9 sources) Melanocytic nevus; Translations: [Melanocytic nevi, unspecified] Onset: 03-17-2018 10-09-2021 Episodic Other connective tissue disease (9 sources) Disorder of tendon; Translations: [Unspecified disorder of synovium and tendon, unspecified site] Onset: 03-17-2018 10-09-2021 Episodic Other diseases of kidney and ureters (9 sources) Hydronephrosis; Translations: [Unspecified hydronephrosis] Onset: 10-09-2021 10-09-2021 Episodic Other eye disorders (9 sources) Disorder of eye region; Translations: [Unspecified disorder of eye and adnexa] Onset: 10-08-2016 10-09-2021 Episodic Other screening for suspected conditions (not mental disorders or infectious disease) (20 sources) Other abnormal and inconclusive findings on diagnostic imaging of breast; Translations: [Mammography abnormal] Onset: 09-29-2017 10-09-2021 Episodic Other skin disorders (9 sources) Skin tag; Translations: [Other hypertrophic disorders of the skin] Onset: 01-27-2018 10-09-2021 Episodic Residual codes; unclassified (9 sources) Insomnia; Translations: [Insomnia, unspecified] Onset: 05-20-2017 10-09-2021 Episodic Results Test Name Value Interpretation Reference Range Facility Electrocardiogram reportOrde red By: Ana Salinas on 09-14-2024 EKG study [facility] [address] [place] [address] 12 Lead EKG 09/13/24 1359 MR#: [id number] Acct: [id number] Name: MARK ANDERSON MAURICIO Rep #:[id number] : 1960 64 From: Aan hall MD Attending Dr: Dr. Violetta Mcfarlane MD Status: REG CLI Ordering Dr: Violetta Mcfarlane MD Date: 09/13/24 Location: [facility] Sex: F C Admitted: Test Reason : PRE OP Blood Pressure : */* mmHG Vent. Rate : 77 BPM Atrial Rate : 77 BPM P-R Int : 166 ms QRS Dur : 70 ms QT Int : 368 ms P-R-T Axes : 24 4 53 degrees QTcB Int : 416 ms Normal sinus rhythm Low voltage QRS Borderline ECG Confirmed by RANDY BERGMAN, MARY ANN ([id number]), editor continuity and script ELIZABETH BROWN ([id number]) on 09/14/2024 1:21:55 PM Referred By: Violetta Mcfarlane Confirmed By: MARY ANN SALINAS MD 09/14/24 1322 Date _ Ana Salinas MD CC: Dr. Violetta Mcfarlane MD ~ Signed [facility] Other Phone: 12 Lead EKGon 09-13-2024 12 Lead EKG [facility] [address] [place] [address] 12 Lead EKG 09/13/24 1359 MR#: [id number] Acct: [id number] Name: MARK ANDERSON MAURICIO Rep #: [id number] : 1960 64 From: Ana Salinas MD Attending Dr: Dr. Violetta Mcfarlane MD Status: RE G CLI Ordering Dr: Violetta Mcfarlane MD Date: 09/13/24 Location: [facility] Sex: F C Admitted: Test Reason : PRE OP Blood Pressure : */* mmHG Vent. Rate : 77 BPM Atrial Rate : 77 BPM P-R Int : 166 ms QRS Dur : 70 ms QT Int : 368 ms P-R-T Axes : 24 4 53 degrees QTcB Int : 416 ms Normal sinus rhythm Low voltage QRS Borderline ECG Confirmed by RANDY BERGMAN, MARY ANN ([id number]), editor continuity and script ELIZABETH BROWN ([id number]) on 09/14/2024 1:21:55 PM Referred By: Violetta Mcfarlane Confirmed By: MARY ANN SALINAS MD 09/14/24 1322 Date Ana Salinas MD CC: Dr. Violetta Mcfarlane MD Signed Normal [facility] Absolute lymphocyte countOrd ered By: Violetta Mcfarlane on 09-13-2024 Lymphocytes Auto (Unsp spec) [#/Vol] 1.45 10*3/uL 0.83-4.51 [facility] Absolute neutrophil countOrd ered By: Violetta Mcfarlane on 09-13-2024 Neutrophils (Bld) [#/Vol] 3.3 10*3/uL 2.0-7.7 [facility] Anion gap in Serum or Plasma Ordered By: Violetta Mcfarlane on 09-13-2024 Anion gap [Moles/Vol] 9 mmol/L 5-15 [facility] Automated lymphocyte count a s percentage of total leukocytesOrdered By: Violetta Mcfarlane on 09-13-2024 Lymphocytes/100 WBC Auto (Unsp spec) 28.7 % 19-41 [facility] BUN/creatinine ratioOrdered By: Violetta Mcfarlane on 09-13-2024 Urea nitrogen/Creatinine [Mass ratio] 11.7 mg/mg 10-20 [facility] Basophil percentageOrdered B y: Violetta Mcfarlane on 09-13-2024 Basophils/100 WBC (Bld) 0.6 % 0-1 [facility] Bilirubin, totalOrdered By: Violetta Mcfarlane on 09-13-2024 Bilirubin [Mass/Vol] 0.41 mg/dL 0.00-1.30 [facility] CBC W/Diff, Automatedon 08-22 Absolute Lymph 1.45 X10 3/uL Normal 0.83-4.51 [facility] Comment on above: Performed By: #### L 100.0100, L500.4050 ####[facility] [address] [place], [address] Absolute Neut 3.3 X10 3/uL Normal 2.0-7.7 [facility] Comment on above: Performed By: #### L 100.0100, L500.4050 ####[facility] [address] [place], [address] Basophils/100 WBC (Bld) 0.6 % Normal 0-1 [facility] Comment on above: Performed By: #### L 100.0100, L500.4050 ####[facility] [address] [place], [address] Eosinophils/100 WBC (Bld) 0.8 % Normal 0-5 [facility] Comment on above: Performed By: #### L 100.0100, L500.4050 ####[facility] [address] [place], [address] Erythrocyte distribution width (RBC) [Ratio] 12.1 % Normal 11.6-14.6 [facility] Comment on above: Performed By: #### L 100.0100, L500.4050 ####[facility] [address] [place], [address] Hematocrit (Bld) [Volume fraction] 39.4 % Normal 37-47 [facility] Comment on above: Performed By: #### L 100.0100, L500.4050 ####[facility] [address] [place], [address] Hemoglobin (Bld) [Mass/Vol] 12.8 g/dL Normal 12.0-15.0 [facility] Comment on above: Performed By: #### L 100.0100, L500.4050 ####[facility] [address] [place], [address] IG% 0.200 Normal 0.0-0.9 [facility] Comment on above: Result Comment: IG% - Immature Granulocytes (promyelocytes, myelocytes and metamyelocytes) > 1% indicates that a LEFT SHIFT is Present. Performed By: #### L 100.0100, L500.4050 ####[facility] [address] [place], [address] Lymphocytes/100 WBC (Bld) 28.7 % Normal 19-41 [facility] Comment on above: Performed By: #### L 100.0100, L500.4050 ####[facility] [address] [place], [address] MCH (RBC) [Entitic mass] 31.2 pg Normal 27.0-32.0 [facility] Comment on above: Performed By: #### L 100.0100, L500.4050 ####[facility] [address] [place], [address] MCHC (RBC) [Mass/Vol] 32.5 g/dL Normal 32-36 [facility] Comment on above: Performed By: #### L 100.0100, L500.4050 ####[facility] [address] [place], [address] MCV (RBC) [Entitic vol] 96.1 fL Normal 81-99 [facility] Comment on above: Performed By: #### L 100.0100, L500.4050 ####[facility] [address] [place], [address] Monocytes/100 WBC (Bld) 5.3 % Normal 0-10 [facility] Comment on above: Performed By: #### L 100.0100, L500.4050 ####[facility] [address] [place], [address] Neutrophils/100 WBC (Bld) 64.4 % Normal 47-70 [facility] Comment on above: Performed By: #### L 100.0100, L500.4050 ####[facility] [address] [place], [address] Nucleated RBC (Bld) [#/Vol] 0 10*3/uL Normal 0-5 [facility] Comment on above: Performed By: #### L 100.0100, L500.4050 ####[facility] [address] [place], [address] Platelet mean volume (Bld) [Entitic vol] 10.3 fL Normal 6.2-12.0 [facility] Comment on above: Performed By: #### L 100.0100, L500.4050 ####[facility] [address] [place], [address] Platelets (Bld) [#/Vol] 168 10*3/uL Normal 150-450 [facility] Comment on above: Performed By: #### L 100.0100, L500.4050 ####[facility] [address] [place], [address] RBC (Bld) [#/Vol] 4.10 10*6/uL Low 4.2-5.4 [facility] Comment on above: Performed By: #### L 100.0100, L500.4050 ####[facility] [address] [place], [address] RDW SD 42.6 fl Normal 35.1-43.9 [facility] Comment on above: Performed By: #### L 100.0100, L500.4050 ####[facility] [address] [place], [address] WBC (Bld) [#/Vol] 5.1 10*3/uL Normal 4.4-11.0 [facility] Comment on above: Performed By: #### L 100.0100, L500.4050 ####[facility] [address] [place], [address] Carbon dioxide, total [Moles /volume] in Central venous bloodOrdered By: Violetta Mcfarlane on 09-13-2024 CO2 [Moles/Vol] 24.7 mmol/L 21.0-32.0 [facility] Chest PA and Lateralon 09-13 Chest PA and Lateral [facility] [address] [place] [address] Chest PA and Lateral MR#: [id number] Acct: [id number] Name: MARK ANDERSON Rep #: [id number] : 1960 F 64 From: Tawny Braswell PCP: Dr. Violetta Mcfarlane MD Status: REG CLI Study: Chest PA and Lateral Date of Exam: 09/13/24 Exam# [id number] Ordering Dr: Violetta Mcfarlane MD PROCEDURE: CHEST PA AND LATERAL 09/13/2024 REASON FOR EXAM: PREOPERATIVE CLEARANCE TECHNIQUE: CHEST PA AND LATERAL COMPARISON: 06/02/2022 FINDINGS: No focal consolidation. No pleural effusion or pneumothorax. Cardiac silhouette is within normal limits. No acute fractures. RAD/Chest PA and Lateral IMPRESSION: No focal consolidations. Reading Location: [facility] CC: Dr. Violetta Mcfarlane MD Spa Associate: Signed Normal [facility] Chloride assayOrdered By: Bob Mcfarlane on 09-13-2024 Chloride [Moles/Vol] 105 mmol/L 98-108 [facility] Comprehensive Metabolic Prof ilon 09-13-2024 Albumin [Mass/Vol] 4.2 g/dL Normal 3.4-4.8 [facility] Comment on above: Performed By: #### L 100.0100, L500.4050 ####[facility] [address] [place], [address] Albumin/Globulin [Mass ratio] 1.9 {ratio} Normal 0.9-2.4 [facility] Comment on above: Performed By: #### L 100.0100, L500.4050 ####[facility] [address] [place], [address] ALK PHOS 76 U/L Normal 35-104 [facility] Comment on above: Performed By: #### L 100.0100, L500.4050 ####[facility] [address] [place], [address] ALT [Catalytic activity/Vol] 19 U/L Normal <=34 [facility] Comment on above: Performed By: #### L 100.0100, L500.4050 ####[facility] [address] [place], [address] AST [Catalytic activity/Vol] 29 U/L Normal <=31 [facility] Comment on above: Performed By: #### L 100.0100, L500.4050 ####[facility] [address] [place], [address] Bilirubin [Mass/Vol] 0.41 mg/dL Normal 0.00-1.30 [facility] Comment on above: Performed By: #### L 100.0100, L500.4050 ####[facility] [address] [place], [address] BUN/CRE 11.7 RATIO Normal 10-20 [facility] Comment on above: Performed By: #### L 100.0100, L500.4050 ####[facility] [address] [place], [address] Calcium [Mass/Vol] 9.1 mg/dL Normal 7.6-11.0 [facility] Comment on above: Performed By: #### L 100.0100, L500.4050 ####[facility] [address] [place], [address] Chloride [Moles/Vol] 105 mmol/L Normal 98-108 [facility] Comment on above: Performed By: #### L 100.0100, L500.4050 ####[facility] [address] [place], [address] CO2 [Moles/Vol] 24.7 mmol/L Normal 21.0-32.0 [facility] Comment on above: Performed By: #### L 100.0100, L500.4050 ####[facility] [address] [place], [address] Creatinine [Mass/Vol] 0.92 mg/dL Normal 0.70-1.20 [facility] Comment on above: Performed By: #### L 100.0100, L500.4050 ####[facility] [address] [place], [address] GAP 9 Normal 5-15 [facility] Comment on above: Performed By: #### L 100.0100, L500.4050 ####[facility] [address] [place], [address] GFR/1.73 sq M.predicted among non-blacks MDRD (S/P/Bld) [Vol rate/Area] 70 mL/min/{1.73_m2} Normal >60 [facility] Comment on above: Result Comment: mL/m in/1.73m2 CKD-EPI Creatinine Equation (2020) Performed By: #### L 100.0100, L500.4050 ####[facility] [address] [place], [address] Globulin (S) [Mass/Vol] 2.2 g/dL Normal 2.2-4.2 [facility] Comment on above: Performed By: #### L 100.0100, L500.4050 ####[facility] [address] [place], [address] Glucose [Mass/Vol] 93 mg/dL Normal 70-99 [facility] Comment on above: Performed By: #### L 100.0100, L500.4050 ####[facility] [address] [place], [address] Potassium [Moles/Vol] 3.9 mmol/L Normal 3.3-5.1 [facility] Comment on above: Performed By: #### L 100.0100, L500.4050 ####[facility] [address] [place], [address] Sodium [Moles/Vol] 139 mmol/L Normal 133-145 [facility] Comment on above: Performed By: #### L 100.0100, L500.4050 ####[facility] [address] [place], [address] T PROT 6.4 g/dL Normal 5.9-8.4 [facility] Comment on above: Performed By: #### L 100.0100, L500.4050 ####[facility] [address] [place], [address] Urea nitrogen [Mass/Vol] 11 mg/dL Normal 4-19 [facility] Comment on above: Performed By: #### L 100.0100, L500.4050 ####[facility] [address] [place], [address] Eosinophil percentageOrdered By: Violetta Mcfarlane on 09-13-2024 Eosinophils/100 WBC (Bld) 0.8 % 0-5 [facility] Erythrocyte distribution wid th ratioOrdered By: Violetta Mcfarlane on 09-13-2024 Erythrocyte distribution width (RBC) [Ratio] 12.1 % 11.6-14.6 [facility] Erythrocyte distribution wid th standard deviationOrdered By: Violetta Mcfarlane on 09-13-2024 Erythrocyte distribution width (RBC) [Ratio] 42.6 fl 35.1-43.9 [facility] Glomerular filtration rate ( GFR) estimation/1.73 sq m using serum, plasma, or whole bOrdered By: Violetta Mcfarlane on 09-13-2024 GFR/1.73 sq M.predicted among non-blacks MDRD (S/P/Bld) [Vol rate/Area] 70 mL/min/{1.73_m2} >60 [facility] Comment on above: mL/min/1.73m2 CKD-EP I Creatinine Equation (2020) Hematocrit Auto (Bld) [Volum e fraction]Ordered By: Violetta Mcfarlane on 09-13-2024 Hematocrit (Bld) [Volume fraction] 39.4 % 37-47 [facility] Hemoglobin measurementOrdere d By: Violetta Mcfarlane on 09-13-2024 Hemoglobin (Bld) [Mass/Vol] 12.8 g/dL 12.0-15.0 [facility] Immature granulocytes/100 WB C Auto (Bld)Ordered By: Violetta Mcfarlane on 09-13-2024 Immature granulocytes/100 WBC (Bld) 0.200 % 0.0-0.9 [facility] Comment on above: IG% - Immature Granu locytes (promyelocytes, myelocytes and metamyelocytes) > 1% indicates that a LEFT SHIFT is Present. Laboratory - Chemistry and C hemistry - challengeOrdered By: Violetta Mcfarlane on 09-13-2024 AST [Catalytic activity/Vol] 29 U/L <32 [facility] MCV (mean corpuscular volume ) determinationOrdered By: Violetta Mcfarlane on 09-13-2024 MCV (RBC) [Entitic vol] 96.1 fL 81-99 [facility] Mean corpuscular hemoglobin (MCH) determinationOrdered By: Violetta Mcfarlane on 09-13-2024 MCH (RBC) [Entitic mass] 31.2 pg 27.0-32.0 [facility] Mean corpuscular hemoglobin concentration (MCHC) determinationOrdered By: Violetta Mcfarlane on 09-13-2024 MCHC (RBC) [Mass/Vol] 32.5 g/dL 32-36 [facility] Mean platelet volume determi nationOrdered By: Violetta Mcfarlane on 09-13-2024 Platelet mean volume (Bld) [Entitic vol] 10.3 fL 6.2-12.0 [facility] Monocyte percentageOrdered B y: Violetta Mcfarlane on 09-13-2024 Monocytes/100 WBC (Bld) 5.3 % 0-10 [facility] Neutrophil percentageOrdered By: Violetta Mcfarlane on 09-13-2024 Neutrophils/100 WBC (Bld) 64.4 % 47-70 [facility] Nucleated red blood cell per centageOrdered By: Violetta Mcfarlane on 09-13-2024 Nucleated RBC/100 WBC (Bld) [Ratio] 0 % 0-5 [facility] Platelet countOrdered By: Bob Mcfarlane on 09-13-2024 Platelets (Bld) [#/Vol] 168 10*3/uL 150-450 [facility] Potassium measurement (mass/ volume)Ordered By: Violetta Mcfarlane on 09-13-2024 Potassium (Unsp spec) [Mass/Vol] 3.9 mmol/L 3.3-5.1 [facility] RBC Auto (Bld) [#/Vol]Ordere d By: Violetta Mcfarlane on 09-13-2024 RBC (Bld) [#/Vol] 4.10 10*6/uL Low 4.2-5.4 [facility] Serum creatinine measurement (mass/volume)Ordered By: Violetta Mcfarlane on 09-13-2024 Creatinine [Mass/Vol] 0.92 mg/dL 0.70-1.20 [facility] Serum globulin measurementOr dered By: Violetta Mcfarlane on 09-13-2024 Globulin (S) [Mass/Vol] 2.2 g/dL 2.2-4.2 [facility] Serum glucose measurement (m ass/volume)Ordered By: Violetta Mcfarlane on 09-13-2024 Glucose [Mass/Vol] 93 mg/dL 70-99 [facility] Serum or plasma alanine xie otransferase (ALT) measurementOrdered By: Violetta Mcfarlane on 09-13-2024 ALT [Catalytic activity/Vol] 19 U/L <35 [facility] Serum or plasma albumin elijah urement (mass/volume)Ordered By: Violetta Mcfarlane on 09-13-2024 Albumin [Mass/Vol] 4.2 g/dL 3.4-4.8 [facility] Serum or plasma albumin/glob ulin mass ratioOrdered By: Violetta Mcfarlane on 09-13-2024 Albumin/Globulin [Mass ratio] 1.9 {ratio} 0.9-2.4 [facility] Serum or plasma alkaline ulises sphatase measurementOrdered By: Violetta Mcfarlane on 09-13-2024 ALP [Catalytic activity/Vol] 76 U/L 35-104 [facility] Serum or plasma calcium elijah urement (mass/volume)Ordered By: Violetta Mcfarlane on 09-13-2024 Calcium [Mass/Vol] 9.1 mg/dL 7.6-11.0 [facility] Serum or plasma urea nitroge n measurement (mass/volume)Ordered By: Violetta Mcfarlane on 09-13-2024 Urea nitrogen [Mass/Vol] 11 mg/dL 4-19 [facility] Sodium levelOrdered By: Adalid Mcfarlane on 09-13-2024 Sodium [Moles/Vol] 139 mmol/L 133-145 [facility] Total proteinOrdered By: Edgar Mcfarlane on 09-13-2024 Protein [Mass/Vol] 6.4 g/dL 5.9-8.4 [facility] White blood cell (WBC) count Ordered By: Violetta Mcfarlane on 09-13-2024 WBC (Bld) [#/Vol] 5.1 10*3/uL 4.4-11.0 [facility] Internal Medicine Office Vis iton 09-03-2024 Internal Medicine Office Visit [facility] [address] [place], [place] [address] OFFICE VISIT Date of Service: 09/04/24 MR#: [id number] Acct: [id number] Name: MARK ANDERSON Rep #: [id number] : 1960 Provider: Dr. 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 Accompanied by: Self Is patient in pain?: No Allergies clindamycin (From Cleocin) Allergy (Mild, Verified 09/04/24 13:46) itching amoxicillin Allergy (Verified 09/04/24 13:46) Rash hydrocodone (From Vicodin) Allergy (Verified 09/04/24 13:46) Rash doxycycline Adverse Reaction (Intermediate, Verified 09/04/24 13:46) Rash hydromorphone (From Dilaudid) Adverse Reaction (Verified 09/04/24 13:46) Other sulfamethoxazole (From Bactrim) Adverse Reaction (Verified 09/04/24 13:46) Nausea trimethoprim (From Bactrim) Adverse Reaction (Verified 09/04/24 13:46) Nausea Medications ???Medication ???Instructions ???Recorded ???Confirmed ???Type semaglutide 2 mg/dose (8 mg/3 mL) 2 mg subcut QWEEK 09/19/23 History subcutaneous pen injector trazodone 100 mg tablet 100 mg PO QHS PRN for insomnia #90 02/23/24 09/04/24 Rx TABLETS magnesium citrate 300 ml PO BID PRN constipation 1 0 06/26/24 09/04/24 Rx month #600 mL duloxetine 40 mg capsule,delayed 40 mg PO QDAY #90 caps 08/08/24 Rx release Nurse's Note: surgical clearance for ganglion cyst on left foot PFSH Medical History Sjogren syndrome Post-menopausal History of steroid therapy Rheumatoid arthritis Anemia History of echocardiogram Cardiology follow-up encounter Chronic constipation Anxiety Kidney stones Chest pain UTI (urinary tract infection) Irritable bowel syndrome Tachycardia Former smoker Acute postoperative anemia due to expected blood loss Drug-induced pruritus Wears glasses Alcohol use Restless legs Migraine headache Family history of breast cancer Intertrigo Shoulder pain Chronic thoracic back pain Chronic neck pain Macromastia Elective procedure for unacceptable cosmetic appearance Diastasis of rectus abdominis Excessive and redundant skin and subcutaneous tissue Excessive body weight loss Anemia Hemorrhoids Fatigue Hydronephrosis with urinary obstruction due to renal calculus HLD (hyperlipidemia) Left ureteral stone Surgical History History of left heart catheterization Status post bilateral breast reduction History of abdominoplasty Hx of tubal ligation Hx of cystoscopy ( 11/17/16) History of ear surgery Hx of section Family History Daughter Cancer Thyroid cancer Asthma Father Cancer bone Alcoholism Mother Hypertension Thyroid disorder Dementia CAD (coronary artery disease) Sister Anemia Grandmother Cancer colon, breast Brother Alcoholism Dementia Frontal lobe Other Family history of breast cancer Social History household members: spouse current occupational status: employed and retired 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 HPI HPI Chief Complaint: SGY CLEARANCE Details: MARK ANDERSON, is a 64 F who presents to the office today for a follow up.??? She is up to date on her routine blood work.??? She is up to date on her colon cancer screening. She previously declined any other screening nor any immunizations.??? She doesn't smoke and does need refills today.??? She reports she is eating healthy. She reports her activity level is about the same. The patient continues to follow with GI for her chronic constipation. She last saw them in June and had her medications changed again. She continues to (more content not included)... Normal [facility] Abdomen/Pelvis WITH Contrast on 07-31-2024 Abdomen/Pelvis WITH Contrast [facility] [address] [place] [address] Abdomen/Pelvis WITH Contrast MR#: [id number] Acct: [id number] Name: MARK ANDERSON Rep #: [id number] : 1960 F 64 From: Kristal cintron MD PCP: Dr. Violetta Mcfarlane MD Status: REG CLI Study: Abdomen/Pelvis WITH Contrast Date of Exam: 12/15 Exam# [id number] Ordering Dr: Panchito Khan DO PROCEDURE: ABDOMEN/PELVIS WITH CONTRAST 07/31/2024 REASON FOR EXAM: CHRONIC CONSTIPATION, NAUSEA TECHNIQUE: Abdomen and pelvis CT with intravenous contrast. Coronal and Sagittal reconstruction series were provided. PATIENT PREPARATION: Per protocol ORAL CONTRAST TYPE: Patient ingested oral contrast. CONTRAST: Isovue-350 VOLUME: 100 mL One or more dose reduction techniques were used (e.g., Automated exposure control, adjustment of the mA and/or kV according to patient size, use of iterative reconstruction technique. RADIATION DOSE SUMMARY: CTDlvol: 8.59 mGy DLP: 451 mGycm COMPARISON: 06/02/2022. FINDINGS: Unchanged scattered simple hepatic cysts. Unchanged nonspecific dilatation of the common bile duct in the head of the pancreas without obstructing stone. The common bile duct measures 7.5 mm in the head of the pancreas, unchanged. Moderate amount of fecal residue in the large bowels, probably constipation. The visualized lung bases are unremarkable. Normal remaining liver. Normal gallbladder and remaining biliary system. Normal spleen. Normal pancreas. Normal bilateral adrenal glands. Normal size of the right kidney. There is no right renal mass. There are no right renal calculi. There is no right hydronephrosis. Normal visualized right ureter. Normal size of the left kidney. There is no left renal mass. There are no left renal calculi. There is no left hydronephrosis. Normal visualized left ureter. Normal visualized stomach. Normal small intestine. The appendix is visualized and appears normal. There is no demonstrated peritoneal fluid. Normal abdominal aorta. Normal inferior vena cava. Normal retroperitoneum. Normal urinary bladder. There is no pelvic mass lesion or lymphadenopathy. There is no pelvic fluid. Normal abdominal wall. Mild diffuse spondylosis. CT/Abdomen/Pelvis WITH Contrast IMPRESSION: Unchanged scattered simple hepatic cysts. Unchanged nonspecific dilatation of the common bile duct in the head of the pancreas without obstructing stone. The common bile duct measures 7.5 mm in the head of the pancreas, unchanged. Moderate amount of fecal residue in the large bowels, probably constipation. Reading Location: [place] [address] CC: Dr. Violetta Mcfarlane MD; Panchito Khan DO Spa Associate: Signed Normal [facility] Plastic Surgery Visit Report on 07-13-2024 Plastic Surgery Visit Report [facility] Pl[facility] Surgery [address] [facility], [address] [place] [address] OFFICE VISIT Date of Service: 07/13/24 MR#: [id number] Acct: [id number] Name: MARK ANDERSON Rep #: [id number] : 1960 Provider: Dr. Herb Simons MD Age/Sex: 64/F Location: [facility] Status: Signed Intake Vital Signs 03/13/24 12:46 07/13/24 15:17 Height 5 ft 1 in 5 ft Weight: 124 lb 129 lb BMI 23.4 25.2 BP 118/62 102/71 Blood Pressure Location Lt brachial Lt brachial Position Sitting Sitting Respiration 16 16 Pulse 102 H 75 Pulse Source Monitor Temp 97.1 F L 97.7 F L Temp Source Temporal Temporal Pulse Oximetry (%) 97 95 Oxygen Delivery Method room air room air Intake Visit Reasons: LIPOSUCTION Chief Complaint: liposuction Allergies clindamycin (From Cleocin) Allergy (Mild, Verified 07/13/24 15:11) itching amoxicillin Allergy (Verified 07/13/24 15:11) Rash hydrocodone (From Vicodin) Allergy (Verified 07/13/24 15:11) Rash doxycycline Adverse Reaction (Intermediate, Verified 07/13/24 15:11) Rash hydromorphone (From Dilaudid) Adverse Reaction (Verified 07/13/24 15:11) Other sulfamethoxazole (From Bactrim) Adverse Reaction (Verified 07/13/24 15:11) Nausea trimethoprim (From Bactrim) Adverse Reaction (Verified 07/13/24 15:11) Nausea Medications ???Medication ???Instructions ???Recorded ???Confirmed ???Type semaglutide 2 mg/dose (8 mg/3 mL) 2 mg subcut QWEEK 09/19/23 History subcutaneous pen injector trazodone 100 mg tablet 100 mg PO QHS PRN for insomnia #90 02/23/24 07/13/24 Rx TABLETS escitalopram oxalate 10 mg tablet 5 mg PO QHS 03/13/24 06/26/24 His tory duloxetine 40 mg capsule,delayed 40 mg PO QDAY #90 caps 05/27/24 Rx release magnesium citrate 300 ml PO BID PRN constipation 1 0 06/26/24 06/26/24 Rx month #600 mL Have you fallen in the past year?: No Nurse's Note: pt here for liposuction upper abdomen, and back flanks PFSH Medical History Sjogren syndrome Post-menopausal History of steroid therapy Rheumatoid arthritis Anemia History of echocardiogram Cardiology follow-up encounter Chronic constipation Anxiety Kidney stones Chest pain UTI (urinary tract infection) Irritable bowel syndrome Tachycardia Former smoker Acute postoperative anemia due to expected blood loss Drug-induced pruritus Wears glasses Alcohol use Restless legs Migraine headache Family history of breast cancer Intertrigo Shoulder pain Chronic thoracic back pain Chronic neck pain Macromastia Elective procedure for unacceptable cosmetic appearance Diastasis of rectus abdominis Excessive and redundant skin and subcutaneous tissue Excessive body weight loss Anemia Hemorrhoids Fatigue Hydronephrosis with urinary obstruction due to renal calculus HLD (hyperlipidemia) Left ureteral stone Surgical History History of left heart catheterization Status post bilateral breast reduction History of abdominoplasty Hx of tubal ligation Hx of cystoscopy ( 11/17/16) History of ear surgery Hx of section Family History Daughter Cancer Thyroid cancer Asthma Father Cancer bone Alcoholism Mother Hypertension Thyroid disorder Dementia CAD (coronary artery disease) Sister Anemia Grandmother Cancer colon, breast Brother Alcoholism Dementia Frontal lobe Other Family history of breast cancer Social History household members: spouse current occupational status: employed and retired 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 Diaz several years ago who presents today for further body contouring consultation in the setting of further weight loss (approximately 20 pounds) since the other procedures. Patient is very healthy and stays active. She is most concerned about the (more content not included)... Normal [facility] Gastroenterology Visit Repor ton 06-26-2024 Gastroenterology Visit Report [facility] [address] [place] [address] OFFICE VISIT Date of Service: 06/26/24 MR#: [id number] Acct: [id number] Name: MARK ANDERSON Rep #: [id number] : 1960 Provider: Panchito Khan DO Age/Sex: 64/F Location: [facility] [place] Status: Signed Intake Vital Signs 03/13/24 12:46 Height 5 ft 1 in Weight: 124 lb BMI 23.4 BP 118/62 Blood Pressure Location Lt brachial Position Sitting Respiration 16 Pulse 102 H Pulse Source Monitor Temp 97.1 F L Temp Source Temporal Pulse Oximetry (%) 97 Oxygen Delivery Method room air Intake Visit Reasons: 3 M FU Chief Complaint: follow up Allergies clindamycin (From Cleocin) Allergy (Mild, Verified 03/13/24 12:43) itching amoxicillin Allergy (Verified 03/13/24 12:43) Rash hydrocodone (From Vicodin) Allergy (Verified 03/13/24 12:43) Rash doxycycline Adverse Reaction (Intermediate, Verified 03/13/24 12:43) Rash hydromorphone (From Dilaudid) Adverse Reaction (Verified 03/13/24 12:43) Other sulfamethoxazole (From Bactrim) Adverse Reaction (Verified 03/13/24 12:43) Nausea trimethoprim (From Bactrim) Adverse Reaction (Verified 03/13/24 12:43) Nausea Medications ???Medication ???Instructions ???Recorded ???Confirmed ???Type semaglutide 2 mg/dose (8 mg/3 mL) 2 mg subcut QWEEK 09/19/23 History subcutaneous pen injector trazodone 100 mg tablet 100 mg PO QHS PRN for insomnia #90 02/23/24 06/26/24 Rx TABLETS escitalopram oxalate 10 mg tablet 5 mg PO QHS 03/13/24 06/26/24 His tory duloxetine 40 mg capsule,delayed 40 mg PO QDAY #90 caps 05/27/24 Rx release magnesium citrate 300 ml PO BID PRN constipation 1 0 06/26/24 06/26/24 Rx month #600 mL PFSH Medical History Sjogren syndrome Post-menopausal History of steroid therapy Rheumatoid arthritis Anemia History of echocardiogram Cardiology follow-up encounter Chronic constipation Anxiety Kidney stones Chest pain UTI (urinary tract infection) Irritable bowel syndrome Tachycardia Former smoker Acute postoperative anemia due to expected blood loss Drug-induced pruritus Wears glasses Alcohol use Restless legs Migraine headache Family history of breast cancer Intertrigo Shoulder pain Chronic thoracic back pain Chronic neck pain Macromastia Elective procedure for unacceptable cosmetic appearance Diastasis of rectus abdominis Excessive and redundant skin and subcutaneous tissue Excessive body weight loss Anemia Hemorrhoids Fatigue Hydronephrosis with urinary obstruction due to renal calculus HLD (hyperlipidemia) Left ureteral stone Surgical History History of left heart catheterization Status post bilateral breast reduction History of abdominoplasty Hx of tubal ligation Hx of cystoscopy ( 11/17/16) History of ear surgery Hx of section Family History Daughter Cancer Thyroid cancer Asthma Father Cancer bone Alcoholism Mother Hypertension Thyroid disorder Dementia CAD (coronary artery disease) Sister Anemia Grandmother Cancer colon, breast Brother Alcoholism Dementia Frontal lobe Other Family history of breast cancer Social History household members: spouse current occupational status: employed and retired 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 SITZ day 3 The majority of the Stitz markers are within the left hemicolon. day 5 Unremarkable abdomen. GET 10..23 normal 26.32 minutes OV 6.24 pt reports continued constipation; reports a firm painful bm once every 4-5 days; denies blood in the stool. Pt reports N/V, abdominal pain, and bloating that she reports go along with not being able to have a bm. Colonoscopy 09.16.23 Preparation of the colon was inadequate. Diverticulosis in the recto-sigmoid colon and in the sigmoid colon. Stool in the entire examined colon. No specimens collected. OV 7. pt reports daily nausea since starting Ozempic a little over a y (more content not included)... Normal [facility] CBC W/Diff, Automatedon 03-24 Absolute Lymph 1.20 X10 3/uL Normal 0.83-4.51 [facility] Comment on above: Performed By: #### L 500.4050, L100.0100 #### [facility] [address] [place], [address] Absolute Neut 1.9 X10 3/uL Low 2.0-7.7 [facility] Comment on above: Performed By: #### L 500.4050, L100.0100 #### [facility] [address] [place], [address] Basophils/100 WBC (Bld) 0.9 % Normal 0-1 [facility] Comment on above: Performed By: #### L 500.4050, L100.0100 #### [facility] [address] [place], [address] Eosinophils/100 WBC (Bld) 1.2 % Normal 0-5 [facility] Comment on above: Performed By: #### L 500.4050, L100.0100 #### [facility] [address] [place], [address] Erythrocyte distribution width (RBC) [Ratio] 12.0 % Normal 11.6-14.6 [facility] Comment on above: Performed By: #### L 500.4050, L100.0100 #### [facility] [address] [place], [address] Hematocrit (Bld) [Volume fraction] 39.5 % Normal 37-47 [facility] Comment on above: Performed By: #### L 500.4050, L100.0100 #### [facility] [address] [place], [address] Hemoglobin (Bld) [Mass/Vol] 12.5 g/dL Normal 12.0-15.0 [facility] Comment on above: Performed By: #### L 500.4050, L100.0100 #### [facility] [address] [place], [address] IG% 0.300 Normal 0.0-0.9 [facility] Comment on above: Result Comment: IG% - Immature Granulocytes (promyelocytes, myelocytes and metamyelocytes) > 1% indicates that a LEFT SHIFT is Present. Performed By: #### L 500.4050, L100.0100 #### [facility] [address] [place], [address] Lymphocytes/100 WBC (Bld) 35.4 % Normal 19-41 [facility] Comment on above: Performed By: #### L 500.4050, L100.0100 #### [facility] [address] [place], [address] MCH (RBC) [Entitic mass] 30.4 pg Normal 27.0-32.0 [facility] Comment on above: Performed By: #### L 500.4050, L100.0100 #### [facility] [address] [place], [address] MCHC (RBC) [Mass/Vol] 31.6 g/dL Low 32-36 [facility] Comment on above: Performed By: #### L 500.4050, L100.0100 #### [facility] [address] [place], [address] MCV (RBC) [Entitic vol] 96.1 fL Normal 81-99 [facility] Comment on above: Performed By: #### L 500.4050, L100.0100 #### [facility] [address] [place], [address] Monocytes/100 WBC (Bld) 6.2 % Normal 0-10 [facility] Comment on above: Performed By: #### L 500.4050, L100.0100 #### [facility] [address] [place], [address] Neutrophils/100 WBC (Bld) 56.0 % Normal 47-70 [facility] Comment on above: Performed By: #### L 500.4050, L100.0100 #### [facility] [address] [place], [address] Nucleated RBC (Bld) [#/Vol] 0 10*3/uL Normal 0-5 [facility] Comment on above: Performed By: #### L 500.4050, L100.0100 #### [facility] [address] [place], [address] Platelet mean volume (Bld) [Entitic vol] 10.3 fL Normal 6.2-12.0 [facility] Comment on above: Performed By: #### L 500.4050, L100.0100 #### [facility] [address] [place], [address] Platelets (Bld) [#/Vol] 168 10*3/uL Normal 150-450 [facility] Comment on above: Performed By: #### L 500.4050, L100.0100 #### [facility] [address] [place], [address] RBC (Bld) [#/Vol] 4.11 10*6/uL Low 4.2-5.4 [facility] Comment on above: Performed By: #### L 500.4050, L100.0100 #### [facility] [address] [place], [address] RDW SD 42.0 fl Normal 35.1-43.9 [facility] Comment on above: Performed By: #### L 500.4050, L100.0100 #### [facility] [address] [place], [address] WBC (Bld) [#/Vol] 3.4 10*3/uL Low 4.4-11.0 [facility] Comment on above: Performed By: #### L 500.4050, L100.0100 #### [facility] [address] [place], [address] Comprehensive Metabolic Prof ilon 04-04-2024 Albumin [Mass/Vol] 3.6 g/dL Normal 3.2-5.0 [facility] Comment on above: Performed By: #### L 500.4050, L100.0100 #### [facility] [address] [place], [address] Albumin/Globulin [Mass ratio] 1.2 {ratio} Normal 0.9-2.4 [facility] Comment on above: Performed By: #### L 500.4050, L100.0100 #### [facility] [address] [place], [address] ALK P 75 U/L Normal 45-117 [facility] Comment on above: Performed By: #### L 500.4050, L100.0100 #### [facility] [address] [place], [address] ALT [Catalytic activity/Vol] 32 U/L Normal 13-56 [facility] Comment on above: Performed By: #### L 500.4050, L100.0100 #### [facility] [address] [place], [address] AST [Catalytic activity/Vol] 28 U/L Normal 15-37 [facility] Comment on above: Performed By: #### L 500.4050, L100.0100 #### [facility] [address] [place], [address] Bilirubin [Mass/Vol] 0.40 mg/dL Normal 0.20-1.00 [facility] Comment on above: Result Comment: For patients on eltrombopag therapy, use of Dimension [place] TBIL is not recommended. Performed By: #### L 500.4050, L100.0100 #### [facility] [address] [place], [address] BUN/CRE 17.7 RATIO Normal 10-20 [facility] Comment on above: Performed By: #### L 500.4050, L100.0100 #### [facility] [address] [place], [address] CA,Total 9.3 mg/dL Normal 8.5-10.1 [facility] Comment on above: Performed By: #### L 500.4050, L100.0100 #### [facility] [address] [place], [address] Chloride [Moles/Vol] 109 mmol/L High 98-107 [facility] Comment on above: Performed By: #### L 500.4050, L100.0100 #### [facility] [address] [place], [address] CO2 [Moles/Vol] 28.0 mmol/L Normal 21.0-32.0 [facility] Comment on above: Performed By: #### L 500.4050, L100.0100 #### [facility] [address] [place], [address] Creatinine [Mass/Vol] 0.90 mg/dL Normal 0.55-1.02 [facility] Comment on above: Result Comment: The validity of the calculated GFR GFRAA in patients over 70 years has not been determined. Clinical correlation is essential. Performed By: #### L 500.4050, L100.0100 #### [facility] [address] [place], [address] EST GFR - AA 81 mL/min Normal >60 [facility] Comment on above: Result Comment: Afri can [place]olan GFR Calc Performed By: #### L 500.4050, L100.0100 #### [facility] [address] [place], [address] GAP 4 Low 5-15 [facility] Comment on above: Performed By: #### L 500.4050, L100.0100 #### [facility] [address] [place], [address] GFR/1.73 sq M.predicted among non-blacks MDRD (S/P/Bld) [Vol rate/Area] 67 mL/min/{1.73_m2} Normal >60 [facility] Comment on above: Result Comment: Non- GFR Calc Performed By: #### L 500.4050, L100.0100 #### [facility] [address] [place], [address] Globulin (S) [Mass/Vol] 2.9 g/dL Normal 2.2-4.2 [facility] Comment on above: Performed By: #### L 500.4050, L100.0100 #### [facility] [address] [place], [address] Glucose [Mass/Vol] 87 mg/dL Normal 74-106 [facility] Comment on above: Performed By: #### L 500.4050, L100.0100 #### [facility] [address] [place], [address] Potassium [Moles/Vol] 4.4 mmol/L Normal 3.5-5.1 [facility] Comment on above: Performed By: #### L 500.4050, L100.0100 #### [facility] [address] [place], [address] Sodium [Moles/Vol] 141 mmol/L Normal 136-145 [facility] Comment on above: Performed By: #### L 500.4050, L100.0100 #### [facility] [address] [place], [address] T PROT 6.5 g/dL Normal 6.4-8.2 [facility] Comment on above: Performed By: #### L 500.4050, L100.0100 #### [facility] [address] [place], [address] Urea nitrogen [Mass/Vol] 16 mg/dL Normal 7-18 [facility] Comment on above: Performed By: #### L 500.4050, L100.0100 #### [facility] [address] [place], [address] Gastroenterology Visit Repor ton 03-26-2024 Gastroenterology Visit Report [facility] [address] [place] [address] OFFICE VISIT Date of Service: 03/26/24 MR#: [id number] Acct: [id number] Name: MARK ANDERSON Rep #: [id number] : 1960 Provider: Pnachito Khan DO Age/Sex: 64/F Location: [facility] [place] Status: Signed Intake Vital Signs 12/12/23 12:52 03/13/24 12:46 Height 5 ft 1 in 5 ft 1 in Weight: 124 lb BMI 23.4 BP 118/62 Blood Pressure Location Lt brachial Position Sitting Respiration 16 Pulse 102 H Pulse Source Monitor Temp 97.1 F L Temp Source Temporal Pulse Oximetry (%) 97 Oxygen Delivery Method room air Intake Visit Reasons: 3 M FU Chief Complaint: follow up Allergies clindamycin (From Cleocin) Allergy (Mild, Verified 03/13/24 12:43) itching amoxicillin Allergy (Verified 03/13/24 12:43) Rash hydrocodone (From Vicodin) Allergy (Verified 03/13/24 12:43) Rash doxycycline Adverse Reaction (Intermediate, Verified 03/13/24 12:43) Rash hydromorphone (From Dilaudid) Adverse Reaction (Verified 03/13/24 12:43) Other sulfamethoxazole (From Bactrim) Adverse Reaction (Verified 03/13/24 12:43) Nausea trimethoprim (From Bactrim) Adverse Reaction (Verified 03/13/24 12:43) Nausea Medications ???Medication ???Instructions ???Recorded ???Confirmed ???Type semaglutide 2 mg/dose (8 mg/3 mL) 2 mg subcut QWEEK 09/19/23 History subcutaneous pen injector tenapanor 50 mg tablet 50 mg PO BID #60 tabs 12/27/2305/15 Rx trazodone 100 mg tablet 100 mg PO QHS PRN for insomnia #90 02/23/24 03/26/24 Rx TABLETS duloxetine 40 mg capsule,delayed 40 mg PO QDAY #90 caps 03/13/24 Rx release escitalopram oxalate 10 mg tablet 5 mg PO QHS 03/13/24 03/26/24 His tory tenapanor 50 mg tablet (Ibsrela) 50 mg PO BID #60 tabs 03/14/2405/15 Rx magnesium citrate,mag oxide 250 mg 1,000 mg (4 x 250 mg) PO BID 30 03/26/24 03/26/24 Rx capsule days #240 caps metoclopramide HCl 5 mg tablet 5 mg PO BID #60 tabs 03/26/2405/15 Rx PFSH Medical History Sjogren syndrome Post-menopausal History of steroid therapy Rheumatoid arthritis Anemia History of echocardiogram Cardiology follow-up encounter Chronic constipation Anxiety Kidney stones Chest pain UTI (urinary tract infection) Irritable bowel syndrome Tachycardia Former smoker Acute postoperative anemia due to expected blood loss Drug-induced pruritus Wears glasses Alcohol use Restless legs Migraine headache Family history of breast cancer Intertrigo Shoulder pain Chronic thoracic back pain Chronic neck pain Macromastia Elective procedure for unacceptable cosmetic appearance Diastasis of rectus abdominis Excessive and redundant skin and subcutaneous tissue Excessive body weight loss Anemia Hemorrhoids Fatigue Hydronephrosis with urinary obstruction due to renal calculus HLD (hyperlipidemia) Left ureteral stone Surgical History History of left heart catheterization Status post bilateral breast reduction History of abdominoplasty Hx of tubal ligation Hx of cystoscopy ( 11/17/16) History of ear surgery Hx of section Family History Daughter Cancer Thyroid cancer Asthma Father Cancer bone Alcoholism Mother Hypertension Thyroid disorder Dementia CAD (coronary artery disease) Sister Anemia Grandmother Cancer colon, breast Brother Alcoholism Dementia Frontal lobe Other Family history of breast cancer Social History household members: spouse current occupational status: employed and retired 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 OV 08.02.23 pt reports continued constipation; reports a firm painful bm once every 4-5 days; denies blood in the stool. Pt reports N/V, abdominal pain, and bloating that she reports go along with not being able to have a bm. Colonoscopy 09.16.23 Preparation of the colon was inadequate. Diverticulosis in the recto-sigmoid colon and in the sigmoid colon. Stool in (more content not included)... Normal [facility] Internal Medicine Office Vis amadou 03-12-2024 Internal Medicine Office Visit [facility] [place] [address] [place] [address] OFFICE VISIT Date of Service: 03/13/24 MR#: [id number] Acct: [id number] Name: MARK ANDERSON Rep #: [id number] : 1960 Provider: Dr. 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 Accompanied by: Self Is patient in pain?: No Allergies clindamycin (From Cleocin) Allergy (Mild, Verified 03/13/24 12:43) itching amoxicillin Allergy (Verified 03/13/24 12:43) Rash hydrocodone (From Vicodin) Allergy (Verified 03/13/24 12:43) Rash doxycycline Adverse Reaction (Intermediate, Verified 03/13/24 12:43) Rash hydromorphone (From Dilaudid) Adverse Reaction (Verified 03/13/24 12:43) Other sulfamethoxazole (From Bactrim) Adverse Reaction (Verified 03/13/24 12:43) Nausea trimethoprim (From Bactrim) Adverse Reaction (Verified 03/13/24 12:43) Nausea Medications ???Medication ???Instructions ???Recorded ???Confirmed ???Type semaglutide 2 mg/dose (8 mg/3 mL) 2 mg subcut QWEEK 09/19/23 03/13/24 History subcutaneous pen injector tenapanor 50 mg tablet 50 mg PO BID #60 tabs 12/27/23 03/13/24 Rx trazodone 100 mg tablet 100 mg PO QHS PRN for insomnia #90 02/23/24 03/13/24 Rx TABLETS duloxetine 40 mg capsule,delayed 40 mg PO QDAY #90 caps 03/13/24 03/13/24 Rx release escitalopram oxalate 10 mg tablet 5 mg PO QHS 03/13/24 History PFSH Medical History Sjogren syndrome Post-menopausal History of steroid therapy Rheumatoid arthritis Anemia History of echocardiogram Cardiology follow-up encounter Chronic constipation Anxiety Kidney stones Chest pain UTI (urinary tract infection) Irritable bowel syndrome Tachycardia Former smoker Acute postoperative anemia due to expected blood loss Drug-induced pruritus Wears glasses Alcohol use Restless legs Migraine headache Family history of breast cancer Intertrigo Shoulder pain Chronic thoracic back pain Chronic neck pain Macromastia Elective procedure for unacceptable cosmetic appearance Diastasis of rectus abdominis Excessive and redundant skin and subcutaneous tissue Excessive body weight loss Anemia Hemorrhoids Fatigue Hydronephrosis with urinary obstruction due to renal calculus HLD (hyperlipidemia) Left ureteral stone Surgical History History of left heart catheterization Status post bilateral breast reduction History of abdominoplasty Hx of tubal ligation Hx of cystoscopy ( 11/17/16) History of ear surgery Hx of section Family History Daughter Cancer Thyroid cancer Asthma Father Cancer bone Alcoholism Mother Hypertension Thyroid disorder Dementia CAD (coronary artery disease) Sister Anemia Grandmother Cancer colon, breast Brother Alcoholism Dementia Frontal lobe Other Family history of breast cancer Social History household members: spouse current occupational status: employed and retired 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 She is up to date on her routine blood work.??? She is up to date on her colon cancer screening. She previously declined any other screening nor any immunizations.??? She doesn't smoke and does need refills today.??? She reports she is eating healthy. She remains limited in terms of her activity level, and states it is even less with the cold weather. The patient continues to follow with GI for her chronic constipation. She last saw them in December and had her medications changed again. She states she still has ongoing symptoms. She was again counseled on the semaglutide as a contributor to her s (more content not included)... Normal [facility] CBC W/Diff, Automatedon 12-23 Absolute Lymph 0.99 X10 3/uL Normal 0.83-4.51 [facility] Comment on above: Performed By: #### L 100.0100, L500.4050 ####[facility] [address] [place], [address] Absolute Neut 1.7 X10 3/uL Low 2.0-7.7 [facility] Comment on above: Performed By: #### L 100.0100, L500.4050 ####[facility] [address] [place], [address] Basophils/100 WBC (Bld) 1.0 % Normal 0-1 [facility] Comment on above: Performed By: #### L 100.0100, L500.4050 ####[facility] [address] [place], [address] Eosinophils/100 WBC (Bld) 1.0 % Normal 0-5 [facility] Comment on above: Performed By: #### L 100.0100, L500.4050 ####[facility] [address] [place], [address] Erythrocyte distribution width (RBC) [Ratio] 11.7 % Normal 11.6-14.6 [facility] Comment on above: Performed By: #### L 100.0100, L500.4050 ####[facility] [address] [place], [address] Hematocrit (Bld) [Volume fraction] 40.4 % Normal 37-47 [facility] Comment on above: Performed By: #### L 100.0100, L500.4050 ####[facility] [address] [place], [address] Hemoglobin (Bld) [Mass/Vol] 12.8 g/dL Normal 12.0-15.0 [facility] Comment on above: Performed By: #### L 100.0100, L500.4050 ####[facility] [address] [place], [address] IG% 0.300 Normal 0.0-0.9 [facility] Comment on above: Result Comment: IG% - Immature Granulocytes (promyelocytes, myelocytes and metamyelocytes) > 1% indicates that a LEFT SHIFT is Present. Performed By: #### L 100.0100, L500.4050 ####[facility] [address] [place], [address] Lymphocytes/100 WBC (Bld) 34.0 % Normal 19-41 [facility] Comment on above: Performed By: #### L 100.0100, L500.4050 ####[facility] [address] [place], [address] MCH (RBC) [Entitic mass] 31.1 pg Normal 27.0-32.0 [facility] Comment on above: Performed By: #### L 100.0100, L500.4050 ####[facility] [address] [place], [address] MCHC (RBC) [Mass/Vol] 31.7 g/dL Low 32-36 [facility] Comment on above: Performed By: #### L 100.0100, L500.4050 ####[facility] [address] [place], [address] MCV (RBC) [Entitic vol] 98.3 fL Normal 81-99 [facility] Comment on above: Performed By: #### L 100.0100, L500.4050 ####[facility] [address] [place], [address] Monocytes/100 WBC (Bld) 6.9 % Normal 0-10 [facility] Comment on above: Performed By: #### L 100.0100, L500.4050 ####[facility] [address] [place], [address] Neutrophils/100 WBC (Bld) 56.8 % Normal 47-70 [facility] Comment on above: Performed By: #### L 100.0100, L500.4050 ####[facility] [address] [place], [address] Nucleated RBC (Bld) [#/Vol] 0 10*3/uL Normal 0-5 [facility] Comment on above: Performed By: #### L 100.0100, L500.4050 ####[facility] [address] [place], [address] Platelet mean volume (Bld) [Entitic vol] 10.3 fL Normal 6.2-12.0 [facility] Comment on above: Performed By: #### L 100.0100, L500.4050 ####[facility] [address] [place], [address] Platelets (Bld) [#/Vol] 157 10*3/uL Normal 150-450 [facility] Comment on above: Performed By: #### L 100.0100, L500.4050 ####[facility] [address] [place], [address] RBC (Bld) [#/Vol] 4.11 10*6/uL Low 4.2-5.4 [facility] Comment on above: Performed By: #### L 100.0100, L500.4050 ####[facility] [address] [place], [address] RDW SD 42.5 fl Normal 35.1-43.9 [facility] Comment on above: Performed By: #### L 100.0100, L500.4050 ####[facility] [address] [place], [address] WBC (Bld) [#/Vol] 2.9 10*3/uL Low 4.4-11.0 [facility] Comment on above: Performed By: #### L 100.0100, L500.4050 ####[facility] [address] [place], [address] Comprehensive Metabolic Prof [facility] 01-11-2024 Albumin [Mass/Vol] 3.5 g/dL Normal 3.2-5.0 [facility] Comment on above: Performed By: #### L 100.0100, L500.4050 ####[facility] [address] [place], [address] Albumin/Globulin [Mass ratio] 1.2 {ratio} Normal 0.9-2.4 [facility] Comment on above: Performed By: #### L 100.0100, L500.4050 ####[facility] [address] [place], [address] ALK P 70 U/L Normal 45-117 [facility] Comment on above: Performed By: #### L 100.0100, L500.4050 ####[facility] [address] [place], [address] ALT [Catalytic activity/Vol] 20 U/L Normal 13-56 [facility] Comment on above: Performed By: #### L 100.0100, L500.4050 ####[facility] [address] [place], [address] AST [Catalytic activity/Vol] 18 U/L Normal 15-37 [facility] Comment on above: Performed By: #### L 100.0100, L500.4050 ####[facility] [address] [place], [address] Bilirubin [Mass/Vol] 0.50 mg/dL Normal 0.20-1.00 [facility] Comment on above: Result Comment: For patients on eltrombopag therapy, use of Dimension [place] TBIL is not recommended. Performed By: #### L 100.0100, L500.4050 ####[facility] [address] [place], [address] BUN/CRE 14.6 RATIO Normal 10-20 [facility] Comment on above: Performed By: #### L 100.0100, L500.4050 ####[facility] [address] [place], [address] CA,Total 9.0 mg/dL Normal 8.5-10.1 [facility] Comment on above: Performed By: #### L 100.0100, L500.4050 ####[facility] [address] [place], [address] Chloride [Moles/Vol] 109 mmol/L High 98-107 [facility] Comment on above: Performed By: #### L 100.0100, L500.4050 ####[facility] [address] [place], [address] CO2 [Moles/Vol] 27.0 mmol/L Normal 21.0-32.0 [facility] Comment on above: Performed By: #### L 100.0100, L500.4050 ####[facility] [address] [place], [address] Creatinine [Mass/Vol] 0.89 mg/dL Normal 0.55-1.02 [facility] Comment on above: Result Comment: The validity of the calculated GFR GFRAA in patients over 70 years has not been determined. Clinical correlation is essential. Performed By: #### L 100.0100, L500.4050 ####[facility] [address] [place], [address] EST GFR - AA 82 mL/min Normal >60 [facility] Comment on above: Result Comment: Afri can Angolan GFR Calc Performed By: #### L 100.0100, L500.4050 ####[facility] [address] [place], [address] GAP 4 Low 5-15 [facility] Comment on above: Performed By: #### L 100.0100, L500.4050 ####[facility] [address] [place], [address] GFR/1.73 sq M.predicted among non-blacks MDRD (S/P/Bld) [Vol rate/Area] 68 mL/min/{1.73_m2} Normal >60 [facility] Comment on above: Result Comment: Non- GFR Calc Performed By: #### L 100.0100, L500.4050 ####[facility] [address] [place], [address] Globulin (S) [Mass/Vol] 2.8 g/dL Normal 2.2-4.2 [facility] Comment on above: Performed By: #### L 100.0100, L500.4050 ####[facility] [address] [place], [address] Glucose [Mass/Vol] 89 mg/dL Normal 74-106 [facility] Comment on above: Performed By: #### L 100.0100, L500.4050 ####[facility] [address] [place], [address] Potassium [Moles/Vol] 4.3 mmol/L Normal 3.5-5.1 [facility] Comment on above: Performed By: #### L 100.0100, L500.4050 ####[facility] [address] [place], [address] Sodium [Moles/Vol] 140 mmol/L Normal 136-145 [facility] Comment on above: Performed By: #### L 100.0100, L500.4050 ####[facility] [address] [place], [address] T PROT 6.3 g/dL Low 6.4-8.2 [facility] Comment on above: Performed By: #### L 100.0100, L500.4050 ####[facility] [address] [place], [address] Urea nitrogen [Mass/Vol] 13 mg/dL Normal 7-18 [facility] Comment on above: Performed By: #### L 100.0100, L500.4050 ####[facility] [address] [place], [id number] Gastroenterology Visit Repor ton 12-26-2023 Gastroenterology Visit Report [facility] [address] [place] [address] OFFICE VISIT Date of Service: 12/26/23 MR#: [id number] Acct: [id number] Name: MARK ANDERSON Rep #: [id number] : 1960 Provider: CATHIE hess Age/Sex: 63/F Location: [facility] Status: Signed Intake Vital Signs 09/16/23 06:17 12/12/23 12:52 Height 5 ft 1 in 5 ft 1 in Intake Visit Reasons: 4 Month f/u Chief Complaint: follow up Allergies clindamycin (From Cleocin) Allergy (Mild, Verified 12/26/23 12:27) itching amoxicillin Allergy (Verified 12/26/23 12:27) Rash hydrocodone (From Vicodin) Allergy (Verified 12/26/23 12:27) Rash doxycycline Adverse Reaction (Intermediate, Verified 12/26/23 12:27) Rash hydromorphone (From Dilaudid) Adverse Reaction (Verified 12/26/23 12:27) Other sulfamethoxazole (From Bactrim) Adverse Reaction (Verified 12/26/23 12:27) Nausea trimethoprim (From Bactrim) Adverse Reaction (Verified 12/26/23 12:27) Nausea Medications ???Medication ???Instructions ???Recorded ???Confirmed ???Type semaglutide 2 mg/dose (8 mg/3 mL) 2 mg subcut QWEEK 09/19/23 12/26/23 History subcutaneous pen injector duloxetine 40 mg capsule,delayed 40 mg PO QDAY #60 caps 12/09/23 12/26/23 Rx release escitalopram oxalate 10 mg tablet 10 mg PO QHS #90 TABLETS 12/12/23 12/26/23 Rx trazodone 100 mg tablet 100 mg PO QHS PRN for insomnia #90 12/12/23 12/26/23 Rx TABLETS metoclopramide HCl 5 mg tablet 5 mg PO BID 3 weeks #42 tabs 12/26/23 12/26/23 Rx tenapanor 50 mg tablet 50 mg PO BID #60 tabs 12/26/23 12/26/23 Rx PFSH Medical History Sjogren syndrome Post-menopausal History of steroid therapy Rheumatoid arthritis Anemia History of echocardiogram Cardiology follow-up encounter Chronic constipation Anxiety Kidney stones Chest pain UTI (urinary tract infection) Irritable bowel syndrome Tachycardia Former smoker Acute postoperative anemia due to expected blood loss Drug-induced pruritus Wears glasses Alcohol use Restless legs Migraine headache Family history of breast cancer Intertrigo Shoulder pain Chronic thoracic back pain Chronic neck pain Macromastia Elective procedure for unacceptable cosmetic appearance Diastasis of rectus abdominis Excessive and redundant skin and subcutaneous tissue Excessive body weight loss Anemia Hemorrhoids Fatigue Hydronephrosis with urinary obstruction due to renal calculus HLD (hyperlipidemia) Left ureteral stone Surgical History History of left heart catheterization Status post bilateral breast reduction History of abdominoplasty Hx of tubal ligation Hx of cystoscopy ( 11/17/16) History of ear surgery Hx of section Family History Daughter Cancer Thyroid cancer Asthma Father Cancer bone Alcoholism Mother Hypertension Thyroid disorder Dementia CAD (coronary artery disease) Sister Anemia Grandmother Cancer colon, breast Brother Alcoholism Dementia Frontal lobe Other Family history of breast cancer Social History household members: spouse current occupational status: employed and retired 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, 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.) Smoking Status: Former smoker quit date: 02/21/89 pack-years: 20 Electronic Cigarette Use: not used second hand exposure: No alcohol intake: former details: never a heavy drinker substance use type: does not use caffeine: No what type of physical activity do you participate in: none frequency: does not exercise seatbelt use: always do you feel safe at home: Yes additional social history: Does Not take Aspirin Does take Ibuprofen as needed HPI HPI Chief Complaint: follow up Details: MARK ANDERSON, is a 63 F who presents to the office today for OV 6 pt reports continued constipation; reports a firm painful bm once every 4-5 days; denies blood in the stool. Pt reports N/V, abdominal pain, and bloating that she reports go along with not being able to have a bm. Colonoscopy 09.16.23 Preparation of the colon was inadequate. Diverticulosis in the recto-sigmoid colon and in the sigmoid colon. Stool in the entire examined colon. No specimens collected. OV 09.19.23 pt reports daily nausea since starting Ozempic a little over a year ago. Pt also reports continued constipation; denies blood in the stool. Notes difficulty swallowing her saliva and having dry mouth since starting duloxetine a few months ago. OV 12.26.23 pt continues to report daily nausea, abdominal bloating, BMs firm, painful 4-5 times week w/tenesmus. Failed Austin Salmeron, now [place] (more content not included)... Normal [facility] Lipid Profileon 12-12-2023 Cholesterol [Mass/Vol] 200 mg/dL Normal 200 [facility] Comment on above: Result Comment: <200 mg/dL Desirable 200-240 mg/dL Borderline >240 mg/dL High Risk Performed By: #### L 500.4100, L503.0105 ####[facility] [address] [place], [address] Cholesterol in HDL [Mass/Vol] 66 mg/dL Normal [facility] Comment on above: Result Comment: The drugs N-Acetylcysteine and Metamizole may falsely depress this assay. Reference Range HDL <40 mg/dL Low HDL Cholesterol HDL >or= 60 mg/dL High HDL Cholesterol Performed By: #### L 500.4100, L503.0105 ####[facility] [address] [place], [address] Cholesterol in LDL [Mass/Vol] 125 mg/dL Normal 0-130 [facility] Comment on above: Performed By: #### L 500.4100, L503.0105 ####[facility] [address] [place], [address] Cholesterol in VLDL [Mass/Vol] 9 mg/dL Normal 5-40 [facility] Comment on above: Performed By: #### L 500.4100, L503.0105 ####[facility] [address] [place], [address] Triglyceride [Mass/Vol] 47 mg/dL Normal [facility] Comment on above: Result Comment: The drugs N-Acetylcysteine and Metamizole may falsely depress this assay. Serum Triglycerides Reference Interval Normal <150 mg/dL Borderline high 150 - 199 mg/dL High 200 - 499 mg/dL Very High > or = 500 mg/dL Performed By: #### L 500.4100, L503.0105 ####[facility] [address] [place], [address] Vitamin B12on 12-12-2023 Cobalamin (Vitamin B12) [Mass/Vol] 405 pg/mL Normal 211-911 [facility] Comment on above: Performed By: #### L 500.4100, L503.0105 ####[facility] [address] [place], [address] Internal Medicine Office Vis amadou 12-08-2023 Internal Medicine Office Visit [facility] [address] [place] [address] [place] [address] OFFICE VISIT Date of Service: 12/12/23 MR#: [id number] Acct: [id number] Name: MARK ANDERSON Rep #: [id number] : 1960 Provider: Dr. 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 Accompanied by: Self Is patient in pain?: No Allergies clindamycin (From Cleocin) Allergy (Mild, Verified 12/12/23 12:47) itching amoxicillin Allergy (Verified 12/12/23 12:47) Rash hydrocodone (From Vicodin) Allergy (Verified 12/12/23 12:47) Rash doxycycline Adverse Reaction (Intermediate, Verified 12/12/23 12:47) Rash hydromorphone (From Dilaudid) Adverse Reaction (Verified 12/12/23 12:47) Other sulfamethoxazole (From Bactrim) Adverse Reaction (Verified 12/12/23 12:47) Nausea trimethoprim (From Bactrim) Adverse Reaction (Verified 12/12/23 12:47) Nausea Medications ???Medication ???Instructions ???Recorded ???Confirmed ???Type semaglutide 2 mg/dose (8 mg/3 mL) 2 mg subcut QWEEK 09/19/23 12/12/23 History subcutaneous pen injector plecanatide 3 mg tablet (Trulance) 3 mg PO DAILY #30 tabs 09/20/23 12/12/23 Rx duloxetine 40 mg capsule,delayed 40 mg PO QDAY #60 caps 12/09/23 12/12/23 Rx release escitalopram oxalate 10 mg tablet 10 mg PO QHS #90 TABLETS 12/12/23 12/12/23 Rx trazodone 100 mg tablet 100 mg PO QHS PRN for insomnia #90 12/12/23 12/12/23 Rx TABLETS PFSH Medical History Sjogren syndrome Post-menopausal History of steroid therapy Rheumatoid arthritis Anemia History of echocardiogram Cardiology follow-up encounter Chronic constipation Anxiety Kidney stones Chest pain UTI (urinary tract infection) Irritable bowel syndrome Tachycardia Former smoker Acute postoperative anemia due to expected blood loss Drug-induced pruritus Wears glasses Alcohol use Restless legs Migraine headache Family history of breast cancer Intertrigo Shoulder pain Chronic thoracic back pain Chronic neck pain Macromastia Elective procedure for unacceptable cosmetic appearance Diastasis of rectus abdominis Excessive and redundant skin and subcutaneous tissue Excessive body weight loss Anemia Hemorrhoids Fatigue Hydronephrosis with urinary obstruction due to renal calculus HLD (hyperlipidemia) Left ureteral stone Surgical History History of left heart catheterization Status post bilateral breast reduction History of abdominoplasty Hx of tubal ligation Hx of cystoscopy ( 11/17/16) History of ear surgery Hx of section Family History Daughter Cancer Thyroid cancer Asthma Father Cancer bone Alcoholism Mother Hypertension Thyroid disorder Dementia CAD (coronary artery disease) Sister Anemia Grandmother Cancer colon, breast Brother Alcoholism Dementia Frontal lobe Other Family history of breast cancer Social History household members: spouse current occupational status: employed and retired 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 She hasn't done her lipid panel as previously ordered.??? She is up to date on her colon cancer screening. She previously still doesn't want to do any other screening nor any immunizations.??? She doesn't smoke and does need refills today.??? She reports she is eating healthy. She remains limited in terms of her activity level. The patient continues to follow with GI for her chronic constipation. At her most recent visit in August, she had her medications adjusted. She reports that her trulance is still not helping. She goes back to him nex (more content not included)... Normal [facility] Gastroenterology Visit Repor ton 09-19-2023 Gastroenterology Visit Report [facility] [address] [place] [address] OFFICE VISIT Date of Service: 09/19/23 MR#: [id number] Acct: [id number] Name: MARK ANDERSON MAURICIO Rep #: [id number] : 1960 Provider: Panchito Khan, Age/Sex: 63/F Location: [facility] [place] Status: Signed Intake Vital Signs 05/11/23 10:43 09/16/23 06:17 Height 5 ft 1 in 5 ft 1 in Intake Visit Reasons: 3 M FU Chief Complaint: follow up Allergies clindamycin (From Cleocin) Allergy (Mild, Verified 09/16/23 06:16) itching amoxicillin Allergy (Verified 09/16/23 06:16) Rash hydrocodone (From Vicodin) Allergy (Verified 09/16/23 06:16) Rash doxycycline Adverse Reaction (Intermediate, Verified 09/16/23 06:16) Rash hydromorphone (From Dilaudid) Adverse Reaction (Verified 09/16/23 06:16) Other sulfamethoxazole (From Bactrim) Adverse Reaction (Verified 09/16/23 06:16) Nausea trimethoprim (From Bactrim) Adverse Reaction (Verified 09/16/23 06:16) Nausea Medications ???Medication ???Instructions ???Recorded ???Confirmed ???Type hydroxychloroquine 200 mg tablet 200 mg PO DAILY 05/11/23 09/19/23 History (Plaquenil) escitalopram oxalate 20 mg tablet 20 mg PO QHS #90 TABLETS 05/13/23 09/19/23 Rx duloxetine 40 mg capsule,delayed 40 mg PO DAILY #90 caps 07/25/23 09/19/23 Rx release trazodone 100 mg tablet 100 mg PO QHS for insomnia #90 07/27/23 09/19/23 Rx TABLETS sumatriptan succinate 25 mg tablet See Rx Instructions PO .COMPLEX 08/22/23 09/19/23 History (Imitrex) PRN migraine headache semaglutide 2 mg/dose (8 mg/3 mL) 2 mg subcut QWEEK 09/19/23 09/19/23 History subcutaneous pen injector [facility] Medical History Sjogren syndrome Post-menopausal History of steroid therapy Rheumatoid arthritis Anemia History of echocardiogram Cardiology follow-up encounter Chronic constipation Anxiety Kidney stones Chest pain UTI (urinary tract infection) Irritable bowel syndrome Tachycardia Former smoker Acute postoperative anemia due to expected blood loss Drug-induced pruritus Wears glasses Alcohol use Restless legs Migraine headache Family history of breast cancer Intertrigo Shoulder pain Chronic thoracic back pain Chronic neck pain Macromastia Elective procedure for unacceptable cosmetic appearance Diastasis of rectus abdominis Excessive and redundant skin and subcutaneous tissue Excessive body weight loss Anemia Hemorrhoids Fatigue Hydronephrosis with urinary obstruction due to renal calculus HLD (hyperlipidemia) Left ureteral stone Surgical History History of left heart catheterization Status post bilateral breast reduction History of abdominoplasty Hx of tubal ligation Hx of cystoscopy ( 11/17/16) History of ear surgery Hx of section Family History Daughter Cancer Thyroid cancer Asthma Father Cancer bone Alcoholism Mother Hypertension Thyroid disorder Dementia CAD (coronary artery disease) Sister Anemia Grandmother Cancer colon, breast Brother Alcoholism Dementia Frontal lobe Other Family history of breast cancer Social History household members: spouse current occupational status: employed and retired 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 OV 6 pt reports continued constipation; reports a firm painful bm once every 4-5 days; denies blood in the stool. Pt reports N/V, abdominal pain, and bloating that she reports go along with not being able to have a bm. Colonoscopy 09.16.23 Preparation of the colon was inadequate. Diverticulosis in the recto- sigmoid colon and in the sigmoid colon. Stool in the entire examined colon. No specimens collected. OV 09.19.23 pt reports daily nausea since starting Ozempic a little over a year ago. Pt also reports continued constipation; denies blood in the stool. Notes difficulty swallowing her saliva and having dry mouth since starting duloxetine a few months ago. ROS Const Constitutional: Positive for fatigue, headache(s) and weight hamilton (more content not included)... Normal [facility] Colonoscopy Reporton 024 Colonoscopy Report [facility] Medical Records Department [address] [place] [address] Colonoscopy Report MR#: [id number] Acct: [id number] Name: MARK ANDERSON Rep #: [id number] : 1960 63 From: Panchito Khan DO PCP: Dr. Violetta Mcfarlane MD [place] [facility] Name: Mark Anderson Procedure Date: 09/16/2023 7:05 AM Date of : 1960 Age: 63 Procedure: Colonoscopy Indications: Screening for colorectal malignant neoplasm Providers: Panchito Khan DO Referring MD: Violetta Mcfarlane Md Medicines: Monitored Anesthesia Care Patient Profile: This is a 63 year old female. Refer to note in patient chart for documentation of history and physical. Last Colonoscopy: date unknown. Unable to locate last colonoscopy report. Complications: No immediate complications. Procedure: Pre-Anesthesia Assessment: - Prior to the procedure, a History and Physical was performed, and patient medications and allergies were reviewed. The risks and benefits of the procedure and the sedation options and risks were discussed with the patient. All questions were answered and informed consent was obtained. Patient identification and proposed procedure were verified by the physician in the pre-procedure area. Mental Status Examination: alert and oriented. Airway Examination: normal oropharyngeal airway and neck mobility. Respiratory Examination: clear to auscultation. CV Examination: normal. Prophylactic Antibiotics: The patient does not require prophylactic antibiotics. Prior Anticoagulants: The patient has taken no anticoagulant or antiplatelet agents. ASA Grade Assessment: II - A patient with mild systemic disease. After reviewing the risks and benefits, the patient was deemed in satisfactory condition to undergo the procedure. The anesthesia plan was to use monitored anesthesia care (MAC). Immediately prior to administration of medications, the patient was re-assessed for adequacy to receive sedatives. The heart rate, respiratory rate, oxygen saturations, blood pressure, adequacy of pulmonary ventilation, and response to care were monitored throughout the procedure. The physical status of the patient was re-assessed after the procedure. After I obtained informed consent, the scope was passed under direct vision. Throughout the procedure, the patient's blood pressure, pulse, and oxygen saturations were monitored continuously. The Colonoscope was introduced through the anus and advanced to the cecum, identified by appendiceal orifice and ileocecal valve. The colonoscopy was performed without difficulty. The patient tolerated the procedure well. The quality of the bowel preparation was inadequate. The ileocecal valve and the appendiceal orifice were photographed. Scope In: 7:12:56 AM Scope Withdrawal Time 0 hours 4 minutes 32 seconds Scope Out: 7:23:14 AM Total Procedure Duration Time 0 hours 10 minutes 18 seconds Findings: The perianal and digital rectal examinations were normal. Multiple small and large-mouthed diverticula were found in the recto-sigmoid colon and sigmoid colon. A large amount of liquid semi-liquid semi-solid solid stool was found in the entire colon, precluding visualization. Impression: - Preparation of the colon was inadequate. - Diverticulosis in the recto-sigmoid colon and in the sigmoid colon. - Stool in the entire examined colon. - No specimens collected. Recommendation: - Discharge patient to home. - Resume previous diet. - Continue present medications. - Repeat colonoscopy at the next available appointment because the bowel preparation was suboptimal. Procedure Code(s): --- Professional --- G0121, Colorectal cancer screening; colonoscopy on individual not meeting criteria for high risk CPT copyright 2021 [employer]. All rights reserved. The codes documented in this report are preliminary and upon rad tech review may be revised to meet current compliance requirements. Panchito Khan DO 09/16/2023 7:32:55 AM This report has been signed electronically. Number of Addenda: 0 Note Initiated On: 09/16/2023 7:05 AM 09/16/23 0733 Date Panchito Cloud Signature: Date (if indicated) CC: Dr. Violetta Mcfarlane MD; Panchito Khan, Date Dictated: 09/16/23704 Date Transcribed: Spa Associate: RF Signed [facility] MR/POSTOP.ANEon 09-16-2023 MR/POSTOP.[facility] Medical Records Department [address] [place] [address] Anesthesia Postop Eval I 09/16/23732 MR#: [id number] Acct: [id number] Name: MARK ANDERSON Rep #: [id number] : 1960 63 From: Erivn Cornejo PCP: Dr. Violetta Mcfarlane MD [place] [facility] Race: C Location: [place] [address] Anesthesia: Postop Eval I Current Vital Signs Temperature: 97.2 F Pulse Rate: 72 Blood Pressure: 105/66 Respiratory Rate: 16 Pulse Ox: 99 Oxygen Delivery Method: Room Air Assessment Airway patent: Yes Spontaneous unlabored respirations: Yes Mental status: Asleep nausea: No Vomiting: No Anesthesia Complication: No Fluid Hydration Crystalloid volume administer (ml): 1,000 Total IV fluid infused: 1,000 Progress Note Anesthesia document: Postop Eval 1 completed: Yes 09/16/23733 Date Ervin Fried Signature: Date CC: Signed [facility] MR/LHEPBPLB6ph 09-16-2023 MR/POSTOPAN2 [facility] Medical Records Department [address] [place] [address] Anesthesia Postop Eval II 09/16/23734 MR#: [id number] Acct: [id number] Name: MARK ANDERSON Rep #: [id number] : 1960 63 From: Andrea Carter MD PCP: Dr. Violetta Mcfarlane MD Status:REG [facility] Y Race: C Location: [facility] Anesthesia Postop Eval I Sum Postop Eval Completion status Anesthesia document: Postop Eval 1 completed: Yes Anesthesia Postop Eval I Summary Anesthesia Postop Eval I Summary: Anesthesia Postop Eval I: Assessment Summary Airway patent Yes 09/16/23 07:34 [email or web address] Spontaneous unlabored Yes 09/16/23 07:34 [email or web address] respirations Mental status Asleep 09/16/23 07:34 [email or web address] nausea No 09/16/23 07:34 [email or web address] Vomiting No 09/16/23 07:34 [email or web address] Anesthesia Postop Eval I: Fluid Summary Crystalloid volume administer 1,000 09/16/23 07:34 [email or web address] (ml) Colloids volume administered ( ml) Blood Product volume administered (ml) Total IV fluid infused 1,000 09/16/23 07:34 [email or web address] Anesthesia Postop Eval I: Summary Notes Anesthesia Complication No 09/16/23 07:34 [email or web address] Anesthesia Complication Comment: Post-operative progress note Anesthesia: Postop Eval II Evaluation Mental status: Awake Pain Level: 0 nausea: No Vomiting: No Complications Anesthesia Complication: No 09/16/23 0735 Date [facility] Carter MD [facility] Signature: Date CC: Signed [facility] CNOVon 02-24-2023 CNOV Office Visit (UCWSTR ) MARK ANDERSON ([id number]) 1960 F Date Time Provider Department 02/24/23 4:45 PM DANY HOOK WSTR During your visit today, we recorded the following information about you: Temperature Pulse Respiration Blood pressure 97.9 degrees 78/minute 18/minute 136/84 Weight 64.4 kg Dany Hook PA-C 02/24/2023 4:17 PM Signed Flonase and decongestants otc Dany Hook PA-C 02/24/2023 4:44 PM Signed This note was created using NoteWriter. Subjective Mark Anderson is a 63 year old female. HPI Presents with a chief complaint of sinus pressure and congestion worsening over the past 12 days. She did have a cough with that but that seems to have improved. She did try some Robitussin cough and cold medicine [id number]. She denies chest pain or shortness of breath. No fever. She did not do a home COVID test. Review of Systems Constitutional: Negative. HENT: Positive for congestion, ear pain, postnasal drip, sinus pressure and sinus pain. Respiratory: Positive for cough. Negative for shortness of breath and wheezing. All other systems reviewed and are negative. PAST MEDICAL HISTORY Diagnosis Date Anemia B12 deficiency Hypoglycemia Irregular menstrual bleeding s/p ablation Migraine headache Current Outpatient Medications Medication Sig Dispense Refill traZODone (DESYREL) 100 mg tablet TAKE 1 AND 1/2 TABLETS AT BEDTIME 135 tablet 3 escitalopram oxalate (LEXAPRO) 10 mg tablet doxycycline (VIBRA-TABS) 100 mg tablet Take 1 tablet by mouth two times a day for 7 days. 14 tablet 0 topiramate (TOPAMAX) 25 mg tablet Take 1 tablet by mouth once daily. (Patient not taking: Reported on 09/13/2022) 90 tablet 0 metoprolol tartrate, short acting, (LOPRESSOR) 50 mg tablet Take 1 tablet by mouth twice daily. (Patient not taking: Reported on 09/13/2022) 180 tablet 0 No current facility-administered medications for this visit. PAST SURGICAL HISTORY Procedure Laterality Date PAST SURGICAL HISTORY OF 2 PAST SURGICAL HISTORY OF kidney stone = lithotripsy PAST SURGICAL HISTORY OF ablation uterus FAMILY HISTORY Problem Relation Age of Onset Cancer Father lung other (thyroid cancer [Other]) Daughter Thyroid Mother Lipids Mother Cancer Maternal Grandmother colon Cancer Paternal Grandmother breast Social History Tobacco Use Smoking status: Former Types: Cigarettes Quit date: 11/18/1989 Years since quittin.2 Passive exposure: Never Smokeless tobacco: Never Vaping Use Vaping Use: Never used Substance Use Topics Alcohol use: Yes Comment: Socially Drug use: No Objective BP 136/84 Pulse 78 Temp 36.6 ?C (97.9 ?F) (Tympanic) Resp 18 Wt 64.4 kg (142 lb) SpO2 96% BMI 26.83 kg/m? Physical Exam Vitals reviewed. Constitutional: Appearance: Normal appearance. HENT: Head: Normocephalic and atraumatic. Right Ear: Tympanic membrane, ear canal and external ear normal. Left Ear: Tympanic membrane, ear canal and external ear normal. Nose: Congestion present. Right Sinus: Maxillary sinus tenderness and frontal sinus tenderness present. Left Sinus: Maxillary sinus tenderness and frontal sinus tenderness present. Cardiovascular: Rate and Rhythm: Normal rate and regular rhythm. Heart sounds: Normal heart sounds. Pulmonary: Effort: Pulmonary effort is normal. Breath sounds: Normal breath sounds. Musculoskeletal: Cervical back: Neck supple. Skin: General: Skin is warm and dry. Neurological: Mental Status: She is alert. Assessment and Plan ASSESSMENT/PLAN: 1. Acute non-recurrent pansinusitis - ICD9: 461.8, ICD10: J01.40 - Will begin treatment with Doxycycline d/t pcn allergy, recommend flonase otc. - Follow up in 3-5 days if symptoms persist or worsen. PRO SteinerC Allergies As of Date: 02/24/2023 Noted Allergy Reaction AMOXIL (AMOXICILLIN) 11/18/2004 2 - Rash 4 - Hives 9 - Itching HYDROCODONE-ACETAMINO PHEN 03/15/2013 2 - Rash 4 - Hives 9 - Itching 1 - Mental Status Change PENICILLINS 11/18/2004 4 - Hives 9 - Itching 2 - Rash ROSUVASTATIN 10/09/2018 14 - Other: See Comments Date Reviewed: 09/13/2022 Reviewed by: Bushra Lemus - Fully Assessed Reason for Visit: Ear Pain [817] Cmt: Bilateral ear pain and sinus x 12 days Primary Visit Diagnosis:Acute non-recurrent pansinusitis [J01.40] Order(s):doxycycline (VIBRA-TABS) 100 mg tabletTake 1 tablet by mouth two times a day for 7 days.Disp: 14 tabletRfl: 0 Prescriptions as of 02/24/2023 - doxycycline (VIBRA-TABS) 100 mg tablet Take 1 tablet by mouth two times a day for 7 days. - traZODone (DESYREL) 100 mg tablet TAKE 1 AND 1/2 TABLETS AT BEDTIME - escitalopram oxalate (LEXAPRO) 10 mg tablet - topiramate (TOPAMAX) 25 mg tablet Take 1 tablet by mouth once daily. - metoprolol tartrate, short acting, (LOPRESSOR) 50 m (more content not included)... Normal [facility] Absolute lymphocyte countOrd ered By: America Costello on 01-24-2023 Lymphocytes Auto (Unsp spec) [#/Vol] 1.26 10*3/uL 0.83-4.51 [facility] Basophil percentageOrdered B y: America Costello on 01-24-2023 Basophils/100 WBC (Bld) 0.5 % 0-1 [facility] Bilirubin [Mass/Vol] 0.40 mg/dL 0.20-1.00 [facility] Comment on above: For patients on eltr ombopag therapy, use of Dimension [place] TBIL is not recommended. Chloride [Moles/Vol] 108 mmol/L 98-107 [facility] Eosinophils/100 WBC (Bld) 0.8 % 0-5 [facility] Glucose [Mass/Vol] 82 mg/dL 74-106 [facility] Neutrophils (Bld) [#/Vol] 2.4 10*3/uL 2.0-7.7 [facility] Neutrophils/100 WBC (Bld) 59.9 % 47-70 [facility] Potassium [Moles/Vol] 4.3 mmol/L 3.5-5.1 [facility] Protein [Mass/Vol] 6.5 g/dL 6.4-8.2 [facility] Sodium [Moles/Vol] 139 mmol/L 136-145 [facility] WBC (Bld) [#/Vol] 4.0 10*3/uL 4.4-11.0 [facility] Blood erythrocytes count (nu mber/volume)Ordered By: America Costello on 01-24-2023 RBC (Bld) [#/Vol] 4.32 10*6/uL 4.2-5.4 [facility] Blood hemoglobin measurement (mass/volume)Ordered By: America Costello on 01-24-2023 Hemoglobin (Bld) [Mass/Vol] 13.5 g/dL 12.0-15.0 [facility] Blood lymphocytes/100 leukoc ytesOrdered By: America Costello on 01-24-2023 Lymphocytes/100 WBC (Bld) 31.7 % 19-41 [facility] Blood monocytes/100 leukocyt esOrdered By: America Costello on 01-24-2023 Monocytes/100 WBC (Bld) 7.1 % 0-10 [facility] Blood platelet mean volumeOr dered By: America Costello on 01-24-2023 Platelet mean volume (Bld) [Entitic vol] 10.7 fL 6.2-12.0 [facility] Determination of erythrocyte mean corpuscular volume (MCV)Ordered By: America Costello on 01-24-2023 MCV (RBC) [Entitic vol] 97.9 fL 81-99 [facility] Hematocrit Auto (Bld) [Volum e fraction]Ordered By: America Costello on 01-24-2023 Hematocrit (Bld) [Volume fraction] 42.3 % 37-47 [facility] Laboratory - Chemistry and C hemistry - challengeOrdered By: America Costello on 01-24-2023 ALP [Catalytic activity/Vol] 76 U/L 45-117 [facility] ALT [Catalytic activity/Vol] 25 U/L 13-56 [facility] CO2 [Moles/Vol] 26.0 mmol/L 21.0-32.0 [facility] Globulin (S) [Mass/Vol] 2.9 g/dL 2.2-4.2 [facility] Urea nitrogen/Creatinine [Mass ratio] 13.1 mg/mg 10-20 [facility] Laboratory - Hematology and Cell countsOrdered By: America Costello on 01-24-2023 Erythrocyte distribution width (RBC) [Entitic vol] 42.9 fL 35.1-43.9 [facility] Erythrocyte distribution width (RBC) [Ratio] 11.8 % 11.6-14.6 [facility] Immature granulocytes/100 WBC (Bld) 0.000 % 0.0-0.9 [facility] Comment on above: IG% - Immature Granu locytes (promyelocytes, myelocytes and metamyelocytes) > 1% indicates that a LEFT SHIFT is Present. MCH (RBC) [Entitic mass] 31.3 pg 27.0-32.0 [facility] Nucleated RBC/100 WBC (Bld) [Ratio] 0 % 0-5 [facility] MCHC Auto (RBC) [Mass/Vol]Or dered By: America Costello on 01-24-2023 MCHC (RBC) [Mass/Vol] 31.9 g/dL 32-36 [facility] No Panel InformationOrdered By: America Costello on 01-24-2023 Estimated GFR (MDRD) Amer 80 mL/min >60 [facility] Comment on above: GFR Calc Estimated GFR (MDRD) Non-Af Amer 66 mL/min >60 [facility] Comment on above: Non- GFR Calc Platelets bldOrdered By: Naga Costello on 01-24-2023 Platelets (Bld) [#/Vol] 181 10*3/uL 150-450 [facility] Serum or plasma albumin elijah urement (mass/volume)Ordered By: America Costello on 01-24-2023 Albumin [Mass/Vol] 3.6 g/dL 3.2-5.0 [facility] Serum or plasma albumin/glob ulin mass ratioOrdered By: America Costello on 01-24-2023 Albumin/Globulin [Mass ratio] 1.2 {ratio} 0.9-2.4 [facility] Serum or plasma calcium elijah urement (mass/volume)Ordered By: America Costello on 01-24-2023 Calcium [Mass/Vol] 9.0 mg/dL 8.5-10.1 [facility] Serum or plasma creatinine m easurement (mass/volume)Ordered By: America Costello on 01-24-2023 Creatinine [Mass/Vol] 0.92 mg/dL 0.55-1.02 [facility] Comment on above: The validity of the calculated GFR & GFRAA in patients over 70 years has not been determined. Clinical correlation is essential. Serum or plasma urea nitroge n measurement (mass/volume)Ordered By: America Costello on 01-24-2023 Urea nitrogen [Mass/Vol] 12 mg/dL 7-18 [facility] Thin prep Papanicolaou smear with manual screeningOrdered By: America Costello on 01-24-2023 Thin prep Papanicolaou smear with manual screening 23 U/L 15-37 [facility] Thin prep Papanicolaou smear with manual screening 5 5-15 [facility] Absolute lymphocyte countOrd ered By: Amreica Costello on 12-14-2022 Lymphocytes Auto (Unsp spec) [#/Vol] 1.02 10*3/uL 0.83-4.51 [facility] Basophil percentageOrdered B y: America Costello on 12-14-2022 Basophils/100 WBC (Bld) 0.6 % 0-1 [facility] Eosinophils/100 WBC (Bld) 1.3 % 0-5 [facility] Neutrophils (Bld) [#/Vol] 1.8 10*3/uL 2.0-7.7 [facility] Neutrophils/100 WBC (Bld) 57.3 % 47-70 [facility] WBC (Bld) [#/Vol] 3.1 10*3/uL 4.4-11.0 [facility] Blood erythrocytes count (nu mber/volume)Ordered By: America Costello on 12-14-2022 RBC (Bld) [#/Vol] 4.10 10*6/uL 4.2-5.4 [facility] Blood hemoglobin measurement (mass/volume)Ordered By: America Costello on 12-14-2022 Hemoglobin (Bld) [Mass/Vol] 12.9 g/dL 12.0-15.0 [facility] Blood lymphocytes/100 leukoc ytesOrdered By: America Costello on 12-14-2022 Lymphocytes/100 WBC (Bld) 32.5 % 19-41 [facility] Blood monocytes/100 leukocyt esOrdered By: America Costello on 12-14-2022 Monocytes/100 WBC (Bld) 8.0 % 0-10 [facility] Blood platelet mean volumeOr dered By: America Costello on 12-14-2022 Platelet mean volume (Bld) [Entitic vol] 10.7 fL 6.2-12.0 [facility] Determination of erythrocyte mean corpuscular volume (MCV)Ordered By: America Costello on 12-14-2022 MCV (RBC) [Entitic vol] 99.5 fL 81-99 [facility] Hematocrit Auto (Bld) [Volum e fraction]Ordered By: America Costello on 12-14-2022 Hematocrit (Bld) [Volume fraction] 40.8 % 37-47 [facility] Laboratory - Hematology and Cell countsOrdered By: America Costello on 12-14-2022 Erythrocyte distribution width (RBC) [Entitic vol] 41.9 fL 35.1-43.9 [facility] Erythrocyte distribution width (RBC) [Ratio] 11.4 % 11.6-14.6 [facility] Immature granulocytes/100 WBC (Bld) 0.300 % 0.0-0.9 [facility] Comment on above: IG% - Immature Granu locytes (promyelocytes, myelocytes and metamyelocytes) > 1% indicates that a LEFT SHIFT is Present. MCH (RBC) [Entitic mass] 31.5 pg 27.0-32.0 [facility] Nucleated RBC/100 WBC (Bld) [Ratio] 0 % 0-5 [facility] MCHC Auto (RBC) [Mass/Vol]Or dered By: America Costello on 12-14-2022 MCHC (RBC) [Mass/Vol] 31.6 g/dL 32-36 [facility] Platelets bldOrdered By: Naga Costello on 12-14-2022 Platelets (Bld) [#/Vol] 169 10*3/uL 150-450 [facility] Absolute lymphocyte countOrd ered By: America Costello on 11-08-2022 Lymphocytes Auto (Unsp spec) [#/Vol] 1.11 10*3/uL 0.83-4.51 [facility] Basophil percentageOrdered B y: America Costello on 11-08-2022 Basophils/100 WBC (Bld) 1.1 % 0-1 [facility] Bilirubin [Mass/Vol] 0.60 mg/dL 0.20-1.00 [facility] Comment on above: For patients on eltr ombopag therapy, use of Dimension [place] TBIL is not recommended. Chloride [Moles/Vol] 108 mmol/L 98-107 [facility] Eosinophils/100 WBC (Bld) 1.1 % 0-5 [facility] Glucose [Mass/Vol] 128 mg/dL 74-106 [facility] Comment on above: Fasting Glucose resu lt greater than or equal to 126 mg/dL suggests DIABETES MELLITUS per A.D.A. criteria. Neutrophils (Bld) [#/Vol] 2.3 10*3/uL 2.0-7.7 [facility] Neutrophils/100 WBC (Bld) 61.0 % 47-70 [facility] Potassium [Moles/Vol] 3.7 mmol/L 3.5-5.1 [facility] Protein [Mass/Vol] 6.8 g/dL 6.4-8.2 [facility] Sodium [Moles/Vol] 140 mmol/L 136-145 [facility] WBC (Bld) [#/Vol] 3.7 10*3/uL 4.4-11.0 [facility] Blood erythrocytes count (nu mber/volume)Ordered By: America Costello on 11-08-2022 RBC (Bld) [#/Vol] 4.27 10*6/uL 4.2-5.4 [facility] RBC (Bld) [#/Vol] 4.24 10*6/uL 3.77-5.28 [facility] Blood hemoglobin measurement (mass/volume)Ordered By: America Costello on 11-08-2022 Hemoglobin (Bld) [Mass/Vol] 13.6 g/dL 12.0-15.0 [facility] Blood lymphocytes/100 leukoc ytesOrdered By: America Costello on 11-08-2022 Lymphocytes/100 WBC (Bld) 29.8 % 19-41 [facility] Blood monocytes/100 leukocyt esOrdered By: America Costello on 11-08-2022 Monocytes/100 WBC (Bld) 7.0 % 0-10 [facility] Blood platelet mean volumeOr dered By: America Costello on 11-08-2022 Platelet mean volume (Bld) [Entitic vol] 10.3 fL 6.2-12.0 [facility] Determination of erythrocyte mean corpuscular volume (MCV)Ordered By: America Costello on 11-08-2022 MCV (RBC) [Entitic vol] 100.0 fL 81-99 [facility] Erythrocyte [id number] ate dehydrogenase (enzymatic activity/mass)Ordered By: America Costello on 11-08-2022 G6PD (RBC) [Catalytic activity/Mass] 283 206-427 [facility] Comment on above: Result Units: U/10E1 2 RBCWhen decreased, G-6-PD, Quant. values are associated withacute hemolytic anemia when deficient individuals areexposed to oxidative stress, such as with certainmedications (e.g., primaquine), infection, or ingestion offava beans. Caution: In patients with acute hemolysis(e.g., abnormally low RBC values), testing for G-6-PD maybe falsely normal because older erythrocytes with a higherenzyme deficiency have been hemolyzed. Young erythrocytesand reticulocytes have normal or near-normal enzymeactivity. Normal values of G-6-PD may be measured forseveral weeks following a hemolytic event.Performed at: [facility] [address] [id number] Director: Kody Miller PhD, Phone: [phone] at: - [facility] [id number] Director: Matteo Gale MD, Phone: [phone] Hematocrit Auto (Bld) [Volum e fraction]Ordered By: America Costello on 11-08-2022 Hematocrit (Bld) [Volume fraction] 42.7 % 37-47 [facility] Laboratory - Chemistry and C hemistry - challengeOrdered By: America Costello on 11-08-2022 ALP [Catalytic activity/Vol] 90 U/L 45-117 [facility] ALT [Catalytic activity/Vol] 25 U/L 13-56 [facility] CO2 [Moles/Vol] 24.0 mmol/L 21.0-32.0 [facility] Globulin (S) [Mass/Vol] 3.1 g/dL 2.2-4.2 [facility] Urea nitrogen/Creatinine [Mass ratio] 10.5 mg/mg 10-20 [facility] Laboratory - Hematology and Cell countsOrdered By: America Costello on 11-08-2022 Erythrocyte distribution width (RBC) [Entitic vol] 43.5 fL 35.1-43.9 [facility] Erythrocyte distribution width (RBC) [Ratio] 11.9 % 11.6-14.6 [facility] Immature granulocytes/100 WBC (Bld) 0.000 % 0.0-0.9 [facility] Comment on above: IG% - Immature Granu locytes (promyelocytes, myelocytes and metamyelocytes) > 1% indicates that a LEFT SHIFT is Present. MCH (RBC) [Entitic mass] 31.9 pg 27.0-32.0 [facility] Nucleated RBC/100 WBC (Bld) [Ratio] 0 % 0-5 [facility] MCHC Auto (RBC) [Mass/Vol]Or dered By: America Costello on 11-08-2022 MCHC (RBC) [Mass/Vol] 31.9 g/dL 32-36 [facility] No Panel InformationOrdered By: America Costello on 11-08-2022 Estimated GFR (MDRD) Amer 77 mL/min >60 [facility] Comment on above: GFR Calc Estimated GFR (MDRD) Non-Af Amer 64 mL/min >60 [facility] Comment on above: Non- GFR Calc Platelets bldOrdered By: Naga Costello on 11-08-2022 Platelets (Bld) [#/Vol] 178 10*3/uL 150-450 [facility] Serum or plasma albumin elijah urement (mass/volume)Ordered By: America Costello on 11-08-2022 Albumin [Mass/Vol] 3.7 g/dL 3.2-5.0 [facility] Serum or plasma albumin/glob ulin mass ratioOrdered By: America Costello on 11-08-2022 Albumin/Globulin [Mass ratio] 1.2 {ratio} 0.9-2.4 [facility] Serum or plasma calcium elijah urement (mass/volume)Ordered By: America Costello on 11-08-2022 Calcium [Mass/Vol] 9.1 mg/dL 8.5-10.1 [facility] Serum or plasma creatinine m easurement (mass/volume)Ordered By: America Costello on 11-08-2022 Creatinine [Mass/Vol] 0.95 mg/dL 0.55-1.02 [facility] Comment on above: The validity of the calculated GFR & GFRAA in patients over 70 years has not been determined. Clinical correlation is essential. Serum or plasma urea nitroge n measurement (mass/volume)Ordered By: America Costello on 11-08-2022 Urea nitrogen [Mass/Vol] 10 mg/dL 7-18 [facility] Thin prep Papanicolaou smear with manual screeningOrdered By: America Costello on 11-08-2022 Thin prep Papanicolaou smear with manual screening 17 U/L 15-37 [facility] Thin prep Papanicolaou smear with manual screening 8 5-15 [facility] Basophil percentageOrdered B y: Violetta Mcfarlane on 09-27-2022 Basophil percentage 50-100 SEEN /hpf 0-5 [facility] Bilirubin Test strip Ql (U)O rdered By: Violetta Mcfarlane on 09-27-2022 Bilirubin Ql (U) 1 mg/dL Negative [facility] Comment on above: COLOR OF URINE MAY A FFECT DIPSTICK RESULTS. Ketones Test strip Ql (U)Ord ered By: Violetta Mcfarlane on 09-27-2022 Ketones Ql (U) 5 mg/dl Negative [facility] Mucus LM Ql (Urine sed)Order ed By: Violetta Mcfarlane on 09-27-2022 Mucus Ql (Urine sed) 0 SEEN /hpf [facility] Nitrite Test strip Ql (U)Ord ered By: Violetta Mcfarlane on 09-27-2022 Nitrite Ql (U) Positive Negative [facility] Protein Test strip Ql (U)Ord ered By: Violetta Mcfarlane on 08-07-2023 Protein Ql (U) 30 mg/dl Negative [facility] Squamous epithelial cells de tection in urine sediment by light microscopyOrdered By: Violetta Mcfarlane on 09-27-2022 Epithelial cells.squamous LM Ql (Urine sed) 0-5 SEEN /hpf 5-10 [facility] Urine blood detectionOrdered By: Violetta Mcfarlane on 09-27-2022 RBC Ql (U) 25 /ul Negative [facility] RBC Ql (U) 0 SEEN /hpf 0-5 [facility] Urine clarityOrdered By: Edgar Mcfarlane on 09-27-2022 Clarity (U) Sl. Cloudy Clear [facility] Urine color determinationOrd ered By: Violetta Mcfarlane on 09-27-2022 Color (U) Yellow Yellow [facility] Urine glucose detectionOrder ed By: Violetta Mcfarlane on 09-27-2022 Glucose Ql (U) Normal mg/dl Normal [facility] Urine leukocyte esterase det ection by dipstickOrdered By: Violetta Mcfarlane on 09-27-2022 Leukocyte esterase Test strip Ql (U) 500 /ul Negative [facility] Urine pHOrdered By: Violetta christy on 09-27-2022 pH (U) 5.0 [pH] 5.0 - 8.0 [facility] Urine sediment bacteria coun t by microscopy (number/high power field)Ordered By: Violetta Mcfarlane on 09-27-2022 Bacteria LM.HPF (Urine sed) [#/Area] 1 /[HPF] None Seen [facility] Urine specific gravity measu rementOrdered By: Violetta Mcfarlane on 09-27-2022 Specific gravity (U) [Rel density] 1.025 1.002-1.030 [facility] Urobilinogen Auto test strip Ql (U)Ordered By: Violetta Mcfarlane on 09-27-2022 Urobilinogen Ql (U) Normal mg/dl Normal [facility] CNOVon 09-13-2022 CNOV Office Visit (UCWSTR ) MARK ANDERSON ([id number]) 1960 F Date Time Provider Department 09/13/22 2:30 PM DANY HOOK WSTR During your visit today, we recorded the following information about you: Temperature Pulse Respiration Blood pressure 98.4 degrees 100/minute 16/minute 106/64 Weight 66.7 kg Dany Hook, MICKI 09/13/2022 4:12 PM Signed This note was created using [employer]. Subjective Mark Anderson is a 62 year old female. HPI Presents with left eye matting over the past 2 weeks. She noticed this morning and had worsening. She has had some redness off and on as well. She denies any cough or congestion. No fever. No vomiting or diarrhea. She has had a headache off and on as well. No weakness, numbness or tingling. Review of Systems Constitutional: Negative. HENT: Negative. Eyes: Positive for pain, discharge, redness and itching. Negative for photophobia and visual disturbance. Respiratory: Negative. Cardiovascular: Negative. Gastrointestinal: Negative. Genitourinary: Negative. Musculoskeletal: Negative. All other systems reviewed and are negative. PAST MEDICAL HISTORY Diagnosis Date Anemia B12 deficiency Hypoglycemia Irregular menstrual bleeding s/p ablation Migraine headache Current Outpatient Medications Medication Sig Dispense Refill traZODone (DESYREL) 100 mg tablet TAKE 1 AND 1/2 TABLETS AT BEDTIME 135 tablet 3 escitalopram oxalate (LEXAPRO) 10 mg tablet ofloxacin (OCUFLOX) 0.3 % ophthalmic solution Use 2 Drops in the left eye every 4 hours for 7 days. 5 mL 0 topiramate (TOPAMAX) 25 mg tablet Take 1 tablet by mouth once daily. (Patient not taking: Reported on 09/13/2022) 90 tablet 0 metoprolol tartrate, short acting, (LOPRESSOR) 50 mg tablet Take 1 tablet by mouth twice daily. (Patient not taking: Reported on 09/13/2022) 180 tablet 0 No current facility-administered medications for this visit. PAST SURGICAL HISTORY Procedure Laterality Date PAST SURGICAL HISTORY OF 2 PAST SURGICAL HISTORY OF kidney stone = lithotripsy PAST SURGICAL HISTORY OF ablation uterus FAMILY HISTORY Problem Relation Age of Onset Cancer Father lung other (thyroid cancer [Other]) Daughter Thyroid Mother Lipids Mother Cancer Maternal Grandmother colon Cancer Paternal Grandmother breast Social History Tobacco Use Smoking status: Former Types: Cigarettes Quit date: 11/18/1989 Years since quittin.8 Passive exposure: Never Smokeless tobacco: Never Vaping Use Vaping Use: Never used Substance Use Topics Alcohol use: Yes Comment: Socially Drug use: No Objective BP 106/64 Pulse 100 Temp 36.9 ?C (98.4 ?F) Resp 16 Wt 66.7 kg (147 lb) SpO2 96% BMI 27.78 kg/m? Physical Exam Vitals reviewed. Constitutional: Appearance: Normal appearance. HENT: Head: Normocephalic and atraumatic. Right Ear: Tympanic membrane, ear canal and external ear normal. Left Ear: Tympanic membrane, ear canal and external ear normal. Nose: Nose normal. Mouth/Throat: Mouth: Mucous membranes are moist. Pharynx: Oropharynx is clear. Eyes: Extraocular Movements: Extraocular movements intact. Comments: Patient has ptosis slightly of the left upper eyelid. Pupils are equil round and reactive bilaterally. Some slight erythema of the left conjunctiva. Watering of the eye. Cardiovascular: Rate and Rhythm: Normal rate and regular rhythm. Heart sounds: Normal heart sounds. Pulmonary: Effort: Pulmonary effort is normal. Breath sounds: Normal breath sounds. Musculoskeletal: Cervical back: Neck supple. Skin: General: Skin is warm and dry. Neurological: General: No focal deficit present. Mental Status: She is alert and oriented to person, place, and time. Cranial Nerves: No cranial nerve deficit. Sensory: No sensory deficit. Motor: No weakness. Coordination: Coordination normal. Assessment and Plan ASSESSMENT/PLAN: 1. Eye irritation - ICD9: 379.99, ICD10: H57.89 (primary diagnosis) Will treat with ofloxacin. Discussed the ptosis of the eyelid, patient states she has had issues with this in the past, seems to be worsening recently. Recommended she see her eye doctor tomorrow. 2. Ptosis of eyelid, left - ICD9: 374.30, ICD10: H02.402 Otherwise neurologically intact on exam. Recommend close followup with eye doctor. Dany Hook PA-C Allergies As of Date: 09/13/2022 Noted Allergy Reaction AMOXIL (AMOXICILLIN) 11/18/2004 2 - Rash 4 - Hives 9 - Itching HYDROCODONE-ACETAMINO PHEN 03/15/2013 2 - Rash 4 - Hives 9 - Itching 1 - Mental Status Change PENICILLINS 11/18/2004 4 - Hives 9 - Itching 2 - Rash ROSUVASTATIN 10/09/2018 14 - Other: See Comments Date Reviewed: 09/13/2022 Reviewed by: Bushra Lemus - Fully Assessed Reason for Visit: Eye Problem [43] Cmt: left eye swollen and matting x off and (more content not included)... Normal [facility] Absolute lymphocyte countOrd ered By: America Costello on 09-03-2022 Lymphocytes Auto (Unsp spec) [#/Vol] 1.02 10*3/uL 0.83-4.51 [facility] Basophil percentageOrdered B y: America Costello on 09-03-2022 Basophils/100 WBC (Bld) 0.7 % 0-1 [facility] Bilirubin [Mass/Vol] 0.40 mg/dL 0.20-1.00 [facility] Comment on above: For patients on eltr ombopag therapy, use of Dimension [place] TBIL is not recommended. Chloride [Moles/Vol] 111 mmol/L 98-107 [facility] Eosinophils/100 WBC (Bld) 1.4 % 0-5 [facility] Glucose [Mass/Vol] 86 mg/dL 74-106 [facility] Neutrophils (Bld) [#/Vol] 1.5 10*3/uL 2.0-7.7 [facility] Neutrophils/100 WBC (Bld) 52.6 % 47-70 [facility] Potassium [Moles/Vol] 3.8 mmol/L 3.5-5.1 [facility] Protein [Mass/Vol] 6.2 g/dL 6.4-8.2 [facility] Sodium [Moles/Vol] 141 mmol/L 136-145 [facility] WBC (Bld) [#/Vol] 2.9 10*3/uL 4.4-11.0 [facility] Blood erythrocytes count (nu mber/volume)Ordered By: America Costello on 09-03-2022 RBC (Bld) [#/Vol] 3.93 10*6/uL 4.2-5.4 [facility] Blood hemoglobin measurement (mass/volume)Ordered By: America Costello on 09-03-2022 Hemoglobin (Bld) [Mass/Vol] 12.7 g/dL 12.0-15.0 [facility] Blood lymphocytes/100 leukoc ytesOrdered By: America Costello on 09-03-2022 Lymphocytes/100 WBC (Bld) 35.5 % 19-41 [facility] Blood monocytes/100 leukocyt esOrdered By: America Costello on 09-03-2022 Monocytes/100 WBC (Bld) 9.8 % 0-10 [facility] Blood platelet mean volumeOr dered By: America Costello on 09-03-2022 Platelet mean volume (Bld) [Entitic vol] 10.8 fL 6.2-12.0 [facility] Determination of erythrocyte mean corpuscular volume (MCV)Ordered By: America Costello on 09-03-2022 MCV (RBC) [Entitic vol] 100.0 fL 81-99 [facility] Hematocrit Auto (Bld) [Volum e fraction]Ordered By: America Costello on 09-03-2022 Hematocrit (Bld) [Volume fraction] 39.3 % 37-47 [facility] Laboratory - Chemistry and C hemistry - challengeOrdered By: America Costello on 09-03-2022 ALP [Catalytic activity/Vol] 70 U/L 45-117 [facility] ALT [Catalytic activity/Vol] 21 U/L 13-56 [facility] CO2 [Moles/Vol] 26.0 mmol/L 21.0-32.0 [facility] Globulin (S) [Mass/Vol] 2.8 g/dL 2.2-4.2 [facility] Urea nitrogen/Creatinine [Mass ratio] 10.6 mg/mg 10-20 [facility] Laboratory - Hematology and Cell countsOrdered By: America Costello on 09-03-2022 Erythrocyte distribution width (RBC) [Entitic vol] 48.0 fL 35.1-43.9 [facility] Erythrocyte distribution width (RBC) [Ratio] 13.2 % 11.6-14.6 [facility] Immature granulocytes/100 WBC (Bld) 0.000 % 0.0-0.9 [facility] Comment on above: IG% - Immature Granu locytes (promyelocytes, myelocytes and metamyelocytes) > 1% indicates that a LEFT SHIFT is Present. MCH (RBC) [Entitic mass] 32.3 pg 27.0-32.0 [facility] Nucleated RBC/100 WBC (Bld) [Ratio] 0 % 0-5 [facility] MCHC Auto (RBC) [Mass/Vol]Or dered By: America Costello on 09-03-2022 MCHC (RBC) [Mass/Vol] 32.3 g/dL 32-36 [facility] No Panel InformationOrdered By: America Costello on 09-03-2022 Estimated GFR (MDRD) Amer 78 mL/min >60 [facility] Comment on above: GFR Calc Estimated GFR (MDRD) Non-Af Amer 64 mL/min >60 [facility] Comment on above: Non- GFR Calc Platelets bldOrdered By: Naga Costello on 09-03-2022 Platelets (Bld) [#/Vol] 158 10*3/uL 150-450 [facility] Serum or plasma albumin elijah urement (mass/volume)Ordered By: America Costello on 09-03-2022 Albumin [Mass/Vol] 3.4 g/dL 3.2-5.0 [facility] Serum or plasma albumin/glob ulin mass ratioOrdered By: Amreica Costello on 09-03-2022 Albumin/Globulin [Mass ratio] 1.2 {ratio} 0.9-2.4 [facility] Serum or plasma calcium elijah urement (mass/volume)Ordered By: America Costello on 09-03-2022 Calcium [Mass/Vol] 8.9 mg/dL 8.5-10.1 [facility] Serum or plasma creatinine m easurement (mass/volume)Ordered By: America Costello on 09-03-2022 Creatinine [Mass/Vol] 0.94 mg/dL 0.55-1.02 [facility] Comment on above: The validity of the calculated GFR & GFRAA in patients over 70 years has not been determined. Clinical correlation is essential. Serum or plasma urea nitroge n measurement (mass/volume)Ordered By: America Costello on 09-03-2022 Urea nitrogen [Mass/Vol] 10 mg/dL 7-18 [facility] Thin prep Papanicolaou smear with manual screeningOrdered By: America Costello on 09-03-2022 Thin prep Papanicolaou smear with manual screening 20 U/L 15-37 [facility] Thin prep Papanicolaou smear with manual screening 4 5-15 [facility] Absolute lymphocyte countOrd ered By: America Costello on 07-07-2022 Lymphocytes Auto (Unsp spec) [#/Vol] 1.48 10*3/uL 0.83-4.51 [facility] Basophil percentageOrdered B y: America Costello on 07-07-2022 Basophils/100 WBC (Bld) 0.9 % 0-1 [facility] Bilirubin [Mass/Vol] 0.30 mg/dL 0.20-1.00 [facility] Comment on above: For patients on eltr ombopag therapy, use of Dimension [place] TBIL is not recommended. Chloride [Moles/Vol] 107 mmol/L 98-107 [facility] Eosinophils/100 WBC (Bld) 1.7 % 0-5 [facility] Glucose [Mass/Vol] 88 mg/dL 74-106 [facility] Neutrophils (Bld) [#/Vol] 3.4 10*3/uL 2.0-7.7 [facility] Neutrophils/100 WBC (Bld) 63.8 % 47-70 [facility] Potassium [Moles/Vol] 3.9 mmol/L 3.5-5.1 [facility] Protein [Mass/Vol] 6.8 g/dL 6.4-8.2 [facility] Sodium [Moles/Vol] 138 mmol/L 136-145 [facility] WBC (Bld) [#/Vol] 5.3 10*3/uL 4.4-11.0 [facility] Blood erythrocytes count (nu mber/volume)Ordered By: America Costello on 07-07-2022 RBC (Bld) [#/Vol] 4.23 10*6/uL 4.2-5.4 [facility] Blood hemoglobin measurement (mass/volume)Ordered By: America Costello on 07-07-2022 Hemoglobin (Bld) [Mass/Vol] 13.5 g/dL 12.0-15.0 [facility] Blood lymphocytes/100 leukoc ytesOrdered By: America Costello on 07-07-2022 Lymphocytes/100 WBC (Bld) 27.8 % 19-41 [facility] Blood monocytes/100 leukocyt esOrdered By: America Costello on 07-07-2022 Monocytes/100 WBC (Bld) 5.6 % 0-10 [facility] Blood platelet mean volumeOr dered By: America Costello on 07-07-2022 Platelet mean volume (Bld) [Entitic vol] 11.0 fL 6.2-12.0 [facility] Determination of erythrocyte mean corpuscular volume (MCV)Ordered By: America Costello on 07-07-2022 MCV (RBC) [Entitic vol] 100.0 fL 81-99 [facility] Hematocrit Auto (Bld) [Volum e fraction]Ordered By: America Costello on 07-07-2022 Hematocrit (Bld) [Volume fraction] 42.3 % 37-47 [facility] Laboratory - Chemistry and C hemistry - challengeOrdered By: America Costello on 07-07-2022 ALP [Catalytic activity/Vol] 89 U/L 45-117 [facility] ALT [Catalytic activity/Vol] 24 U/L 13-56 [facility] CO2 [Moles/Vol] 25.0 mmol/L 21.0-32.0 [facility] Globulin (S) [Mass/Vol] 3.2 g/dL 2.2-4.2 [facility] Urea nitrogen/Creatinine [Mass ratio] 19.5 mg/mg 10-20 [facility] Laboratory - Hematology and Cell countsOrdered By: America Costello on 07-07-2022 Erythrocyte distribution width (RBC) [Entitic vol] 48.8 fL 35.1-43.9 [facility] Erythrocyte distribution width (RBC) [Ratio] 13.3 % 11.6-14.6 [facility] Immature granulocytes/100 WBC (Bld) 0.200 % 0.0-0.9 [facility] Comment on above: IG% - Immature Granu locytes (promyelocytes, myelocytes and metamyelocytes) > 1% indicates that a LEFT SHIFT is Present. MCH (RBC) [Entitic mass] 31.9 pg 27.0-32.0 [facility] Nucleated RBC/100 WBC (Bld) [Ratio] 0 % 0-5 [facility] MCHC Auto (RBC) [Mass/Vol]Or dered By: America Costello on 07-07-2022 MCHC (RBC) [Mass/Vol] 31.9 g/dL 32-36 [facility] No Panel InformationOrdered By: America Costello on 07-07-2022 Estimated GFR (MDRD) Amer 91 mL/min >60 [facility] Comment on above: GFR Calc Estimated GFR (MDRD) Non-Af Amer 75 mL/min >60 [facility] Comment on above: Non- GFR Calc Platelets bldOrdered By: Naga Costello on 07-07-2022 Platelets (Bld) [#/Vol] 180 10*3/uL 150-450 [facility] Serum or plasma albumin elijah urement (mass/volume)Ordered By: America Costello on 07-07-2022 Albumin [Mass/Vol] 3.6 g/dL 3.2-5.0 [facility] Serum or plasma albumin/glob ulin mass ratioOrdered By: America Costello on 07-07-2022 Albumin/Globulin [Mass ratio] 1.1 {ratio} 0.9-2.4 [facility] Serum or plasma calcium elijah urement (mass/volume)Ordered By: America Costello on 07-07-2022 Calcium [Mass/Vol] 9.0 mg/dL 8.5-10.1 [facility] Serum or plasma creatinine m easurement (mass/volume)Ordered By: America Costello on 07-07-2022 Creatinine [Mass/Vol] 0.82 mg/dL 0.55-1.02 [facility] Comment on above: The validity of the calculated GFR & GFRAA in patients over 70 years has not been determined. Clinical correlation is essential. Serum or plasma urea nitroge n measurement (mass/volume)Ordered By: America Costello on 07-07-2022 Urea nitrogen [Mass/Vol] 16 mg/dL 7- [facility] Thin prep Papanicolaou smear with manual screeningOrdered By: America Costello on 07-07-2022 Thin prep Papanicolaou smear with manual screening 24 U/L 15 [facility] Thin prep Papanicolaou smear with manual screening 6 5- [facility] Vancomycin troughOrdered By: Dr. Dodd on 06-05-2022 Vancomycin trough [Mass/Vol] 5.7 ug/mL 5.0-15.0 [facility] Comment on above: VANCOMYCIN STANDARED DRUG THERAPY TROUGH LEVEL: 5.0 - 15.0 mg/L VANCOMYCIN HIGH INTENSITY THERAPY TROUGH LEVEL: 15.0 - 20.0 mg/L High Intensity therapy recommended for serious lifethreatening infections include:- Fjltupoikc-Hzvkaworqpjp-Gughznfhd (Ventilator/Healtcare Associated)-Sepsis PLEASE CONTACT PHARMACY SERVICES (#[id number]) FOR INTERPRETATIONOF RESULTS. Absolute lymphocyte countOrd ered By: Dr. Dodd on 06-03-2022 Lymphocytes Auto (Unsp spec) [#/Vol] 0.39 10*3/uL 0.83-4.51 [facility] Basophil percentageOrdered B y: Dr. Dodd on 06-03-2022 Basophils/100 WBC (Bld) 0.2 % 0-1 [facility] Bilirubin [Mass/Vol] 0.50 mg/dL 0.20-1.00 [facility] Comment on above: For patients on eltr ombopag therapy, use of Dimension [place] TBIL is not recommended. Chloride [Moles/Vol] 107 mmol/L 98-107 [facility] Eosinophils/100 WBC (Bld) 0.0 % 0-5 [facility] Glucose [Mass/Vol] 124 mg/dL 74-106 [facility] Comment on above: Fasting Glucose resu lt from 100 to 125 mg/dL suggests IMPAIRED HOMEOSTASIS per A.D.A. criteria. Neutrophils (Bld) [#/Vol] 6.0 10*3/uL 2.0-7.7 [facility] Neutrophils/100 WBC (Bld) 91.3 % 47-70 [facility] Potassium [Moles/Vol] 3.3 mmol/L 3.5-5.1 [facility] Protein [Mass/Vol] 5.6 g/dL 6.4-8.2 [facility] Sodium [Moles/Vol] 134 mmol/L 136-145 [facility] WBC (Bld) [#/Vol] 6.5 10*3/uL 4.4-11.0 [facility] Blood erythrocytes count (nu mber/volume)Ordered By: Dr. Dodd on 06-03-2022 RBC (Bld) [#/Vol] 3.88 10*6/uL 4.2-5.4 [facility] Blood hemoglobin measurement (mass/volume)Ordered By: Dr. Dodd on 06-03-2022 Hemoglobin (Bld) [Mass/Vol] 12.5 g/dL 12.0-15.0 [facility] Blood lymphocytes/100 leukoc ytesOrdered By: Dr. Dodd on 06-03-2022 Lymphocytes/100 WBC (Bld) 6.0 % 19-41 [facility] Blood manual differential co mment interpretation (narrative result)Ordered By: Dr. Dodd on 06-03-2022 Manual differential comment Justin (Bld) [Interp] SCANNED [facility] Comment on above: LYMPHOPENIA NOTED Blood monocytes/100 leukocyt esOrdered By: Dr. Dodd on 06-03-2022 Monocytes/100 WBC (Bld) 2.0 % 0-10 [facility] Blood platelet mean volumeOr dered By: Dr. Dodd on 06-03-2022 Platelet mean volume (Bld) [Entitic vol] 10.3 fL 6.2-12.0 [facility] Determination of erythrocyte mean corpuscular volume (MCV)Ordered By: Dr. Dodd on 06-03-2022 MCV (RBC) [Entitic vol] 99.5 fL 81-99 [facility] Hematocrit Auto (Bld) [Volum e fraction]Ordered By: Dr. Dodd on 06-03-2022 Hematocrit (Bld) [Volume fraction] 38.6 % 37-47 [facility] Laboratory - Chemistry and C hemistry - challengeOrdered By: Dr. Dodd on 06-03-2022 ALP [Catalytic activity/Vol] 57 U/L 45-117 [facility] ALT [Catalytic activity/Vol] 27 U/L 13-56 [facility] CO2 [Moles/Vol] 21.0 mmol/L 21.0-32.0 [facility] Globulin (S) [Mass/Vol] 2.9 g/dL 2.2-4.2 [facility] Urea nitrogen/Creatinine [Mass ratio] 11.5 mg/mg 10-20 [facility] Laboratory - Hematology and Cell countsOrdered By: Dr. Dodd on 06-03-2022 Erythrocyte distribution width (RBC) [Entitic vol] 46.3 fL 35.1-43.9 [facility] Erythrocyte distribution width (RBC) [Ratio] 12.7 % 11.6-14.6 [facility] Immature granulocytes/100 WBC (Bld) 0.500 % 0.0-0.9 [facility] Comment on above: IG% - Immature Granu locytes (promyelocytes, myelocytes and metamyelocytes) > 1% indicates that a LEFT SHIFT is Present. MCH (RBC) [Entitic mass] 32.2 pg 27.0-32.0 [facility] Nucleated RBC/100 WBC (Bld) [Ratio] 0 % 0-5 [facility] MCHC Auto (RBC) [Mass/Vol]Or dered By: Dr. Dodd on 06-03-2022 MCHC (RBC) [Mass/Vol] 32.4 g/dL 32-36 [facility] No Panel InformationOrdered By: Dr. Dodd on 06-03-2022 Estimated Creatinine Clearance Calc 32.48 ml/min [facility] Estimated GFR (MDRD) Amer 50 mL/min >60 [facility] Comment on above: GFR Calc Estimated GFR (MDRD) Non-Af Amer 41 mL/min >60 [facility] Comment on above: Non- GFR Calc Platelets bldOrdered By: Dr. Dodd on 06-03-2022 Platelets (Bld) [#/Vol] 121 10*3/uL 150-450 [facility] Serum or plasma albumin elijah urement (mass/volume)Ordered By: Dr. Dodd on 06-03-2022 Albumin [Mass/Vol] 2.7 g/dL 3.2-5.0 [facility] Serum or plasma albumin/glob ulin mass ratioOrdered By: Dr. Dodd on 06-03-2022 Albumin/Globulin [Mass ratio] 0.9 {ratio} 0.9-2.4 [facility] Serum or plasma calcium elijah urement (mass/volume)Ordered By: Dr. Dodd on 06-03-2022 Calcium [Mass/Vol] 8.3 mg/dL 8.5-10.1 [facility] Serum or plasma creatinine m easurement (mass/volume)Ordered By: Dr. Dodd on 06-03-2022 Creatinine [Mass/Vol] 1.39 mg/dL 0.55-1.02 [facility] Comment on above: The validity of the calculated GFR & GFRAA in patients over 70 years has not been determined. Clinical correlation is essential. Serum or plasma urea nitroge n measurement (mass/volume)Ordered By: Dr. Dodd on 06-03-2022 Urea nitrogen [Mass/Vol] 16 mg/dL 7-18 [facility] Thin prep Papanicolaou smear with manual screeningOrdered By: Dr. Dodd on 06-03-2022 Thin prep Papanicolaou smear with manual screening 22 U/L 15-37 [facility] Thin prep Papanicolaou smear with manual screening 6 5-15 [facility] Absolute lymphocyte countOrd ered By: Dr. Vanegas on 06-02-2022 Lymphocytes Auto (Unsp spec) [#/Vol] 0.97 10*3/uL 0.83-4.51 [facility] Basophil percentageOrdered B y: Dr. Vanegas on 06-02-2022 Basophils/100 WBC (Bld) 0.2 % 0-1 [facility] Chloride [Moles/Vol] 113 mmol/L 98-107 [facility] Eosinophils/100 WBC (Bld) 0.4 % 0-5 [facility] Glucose [Mass/Vol] 108 mg/dL 74-106 [facility] Comment on above: Fasting Glucose resu lt from 100 to 125 mg/dL suggests IMPAIRED HOMEOSTASIS per A.D.A. criteria. Neutrophils (Bld) [#/Vol] 8.4 10*3/uL 2.0-7.7 [facility] Neutrophils/100 WBC (Bld) 85.0 % 47-70 [facility] Potassium [Moles/Vol] 3.5 mmol/L 3.5-5.1 [facility] Sodium [Moles/Vol] 137 mmol/L 136-145 [facility] WBC (Bld) [#/Vol] 9.9 10*3/uL 4.4-11.0 [facility] Blood erythrocytes count (nu mber/volume)Ordered By: Dr. Vanegas on 06-02-2022 RBC (Bld) [#/Vol] 4.53 10*6/uL 4.2-5.4 [facility] Blood hemoglobin measurement (mass/volume)Ordered By: Dr. Vanegas on 06-02-2022 Hemoglobin (Bld) [Mass/Vol] 14.4 g/dL 12.0-15.0 [facility] Blood lymphocytes/100 leukoc ytesOrdered By: Dr. Vanegas on 06-02-2022 Lymphocytes/100 WBC (Bld) 9.8 % 19-41 [facility] Blood monocytes/100 leukocyt esOrdered By: Dr. Vanegas on 06-02-2022 Monocytes/100 WBC (Bld) 4.1 % 0-10 [facility] Blood platelet mean volumeOr dered By: Dr. Vanegas on 06-02-2022 Platelet mean volume (Bld) [Entitic vol] 10.3 fL 6.2-12.0 [facility] Determination of erythrocyte mean corpuscular volume (MCV)Ordered By: Dr. Vanegas on 06-02-2022 MCV (RBC) [Entitic vol] 97.4 fL 81-99 [facility] Erythrocyte sedimentation ra teOrdered By: Dr. Dodd on 06-02-2022 ESR (Bld) [Velocity] 4 mm/h 0-30 [facility] Hematocrit Auto (Bld) [Volum e fraction]Ordered By: Dr. Vanegas on 06-02-2022 Hematocrit (Bld) [Volume fraction] 44.1 % 37-47 [facility] Laboratory - Chemistry and C hemistry - challengeOrdered By: Dr. Vanegas on 06-02-2022 CO2 [Moles/Vol] 23.0 mmol/L 21.0-32.0 [facility] Urea nitrogen/Creatinine [Mass ratio] 11.2 mg/mg 10-20 [facility] Laboratory - Hematology and Cell countsOrdered By: Dr. Vanegas on 06-02-2022 Erythrocyte distribution width (RBC) [Entitic vol] 44.5 fL 35.1-43.9 [facility] Erythrocyte distribution width (RBC) [Ratio] 12.6 % 11.6-14.6 [facility] Immature granulocytes/100 WBC (Bld) 0.500 % 0.0-0.9 [facility] Comment on above: IG% - Immature Granu locytes (promyelocytes, myelocytes and metamyelocytes) > 1% indicates that a LEFT SHIFT is Present. MCH (RBC) [Entitic mass] 31.8 pg 27.0-32.0 [facility] Nucleated RBC/100 WBC (Bld) [Ratio] 0 % 0-5 [facility] MCHC Auto (RBC) [Mass/Vol]Or dered By: Dr. Vanegas on 06-02-2022 MCHC (RBC) [Mass/Vol] 32.7 g/dL 32-36 [facility] No Panel InformationOrdered By: Dr. Vanegas on 06-02-2022 Estimated Creatinine Clearance Calc 42.19 ml/min [facility] Estimated GFR (MDRD) Amer 67 mL/min >60 [facility] Comment on above: GFR Calc Estimated GFR (MDRD) Non-Af Amer 56 mL/min >60 [facility] Comment on above: Non- GFR Calc Platelets bldOrdered By: Dr. Vanegas on 06-02-2022 Platelets (Bld) [#/Vol] 183 10*3/uL 150-450 [facility] Serum or plasma C reactive p rotein measurement (mass/volume)Ordered By: Dr. Dodd on 06-02-2022 CRP [Mass/Vol] mg/L 0.0-3.0 [facility] Comment on above: C-Reactive Protein ( CRP) provides useful information for thediagnosis, therapy and monitoring of inflammatory processesand associated diseases. For the evaluation of Relative Riskfor Cardiovascular Disease, a High Sensitivity CRP (HSCRP)should be ordered. Serum or plasma calcium elijah urement (mass/volume)Ordered By: Dr. Vanegas on 06-02-2022 Calcium [Mass/Vol] 9.4 mg/dL 8.5-10.1 [facility] Serum or plasma creatinine m easurement (mass/volume)Ordered By: Dr. Vanegas on 06-02-2022 Creatinine [Mass/Vol] 1.07 mg/dL 0.55-1.02 [facility] Comment on above: The validity of the calculated GFR & GFRAA in patients over 70 years has not been determined. Clinical correlation is essential. Serum or plasma urea nitroge n measurement (mass/volume)Ordered By: Dr. Vanegas on 06-02-2022 Urea nitrogen [Mass/Vol] 12 mg/dL 7-18 [facility] Thin prep Papanicolaou smear with manual screeningOrdered By: Dr. Vanegas on 06-02-2022 Thin prep Papanicolaou smear with manual screening 1 5-15 [facility] CNOVon 05-12-2022 CN Office Visit (UCWSTR ) MARK ANEDRSON ([id number]) 1960 F Date Time Provider Department 05/12/22 10:30 AM AWAIS ZHANG [facility] During your visit today, we recorded the following information about you: Temperature Pulse Respiration Blood pressure 98.1 degrees 77/minute 21/minute 108/78 Weight 77.1 kg Awais Zhang MD 05/12/2022 10:45 AM Signed Patient presents with: Sinus Problem: Congestion, MATHEW x 15 days HPI: Feeling sick for 15 days. Positive symptoms: Cough, Wheezing, Sore throat, Sinus pressure, Nasal Congestion, Rhinorrhea, Post nasal drainage, Headache, Negative symptoms: Fever, Vomiting, Diarrhea, OTC: Lozenges, allergy medicine, vicks, tylenol History of migraine headaches. This does not feel similar. Home COVID tests were negative. MEDICATIONS: Current Outpatient Medications Medication Sig escitalopram oxalate (LEXAPRO) 10 mg tablet topiramate (TOPAMAX) 25 mg tablet Take 1 tablet by mouth once daily. metoprolol tartrate, short acting, (LOPRESSOR) 50 mg tablet Take 1 tablet by mouth twice daily. traZODone (DESYREL) 100 mg tablet Take 1.5 tablets by mouth daily at bedtime. GAVILYTE-G 236-22.74-6.74 -5.86 gram suspension (Patient not taking: Reported on 05/12/2022) No current facility-administered medications for this visit. ALLERGIES: ALLERGIES Allergen Reactions Amoxil [Amoxicillin] Rash, Hives, Itching Hydrocodone-Acetami* Rash, Hives, Itching, Mental Status Change Penicillins Hives, Itching, Rash Rosuvastatin Other: See Comments VITALS: BP 108/78 Pulse 77 Temp 36.7 ?C (98.1 ?F) Resp 21 Wt 77.1 kg (170 lb) SpO2 96% BMI 32.12 kg/m? PHYSICAL EXAM: GEN: mildly ill appearing HEENT: PERRL, EOMI, conjunctiva clear Ears: canals clear. TMs without erythema, bulge, or effusion Sinuses: tender frontal sinus, tender maxillary sinuses Throat: moist mucous membranes, mild erythema, no exudate Neck: supple, no thyromegaly, no lymphadenopathy HEART: regular rate and rhythm, no murmurs LUNGS: clear to auscultation, no wheezes or crackles, no increased WOB ASSESSMENT/PLAN: 1. Acute non-recurrent sinusitis, unspecified location - ICD9: 461.9, ICD10: J01.90 - Discussed supportive care treatment with rest, cold medicine, and analgesia. - DOXYCYCLINE MONOHYDRATE 100 MG TABLET Awais Zhang MD Allergies As of Date: 05/12/2022 Noted Allergy Reaction AMOXIL (AMOXICILLIN) 11/18/2004 2 - Rash 4 - Hives 9 - Itching HYDROCODONE-ACETAMINO PHEN 03/15/2013 2 - Rash 4 - Hives 9 - Itching 1 - Mental Status Change PENICILLINS 11/18/2004 4 - Hives 9 - Itching 2 - Rash ROSUVASTATIN 10/09/2018 14 - Other: See Comments Date Reviewed: 05/12/2022 Reviewed by: Trish Escamilla MA - Fully Assessed Reason for Visit: Sinus Problem [99] Cmt: Congestion, MATHEW x 15 days Primary Visit Diagnosis:Acute non-recurrent sinusitis, unspecified location [J01.90] Order(s):doxycycline monohydrate 100 mg tabletTake 1 tablet by mouth twice daily for 5 days.Disp: 10 tabletRfl: 0 Prescriptions as of 05/12/2022 - escitalopram oxalate (LEXAPRO) 10 mg tablet - doxycycline monohydrate 100 mg tablet Take 1 tablet by mouth twice daily for 5 days. - topiramate (TOPAMAX) 25 mg tablet Take 1 tablet by mouth once daily. - metoprolol tartrate, short acting, (LOPRESSOR) 50 mg tablet Take 1 tablet by mouth twice daily. - traZODone (DESYREL) 100 mg tablet Take 1.5 tablets by mouth daily at bedtime. 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 Abnormal mammogram [R92.8] 11/25/2017 Acute postoperative pain [G89.18] 10/09/2021 Anemia [D64.9] 10/09/2021 Chronic laxative abuse [F55.2] 10/09/2018 Chronic thoracic back pain [M54.6, G89.29] 10/09/2021 Disorder of tendon [M67.90] 03/17/2018 Dizziness [R42] 04/22/2021 Drug-induced pruritus [L29.8, T50.905A] 10/09/2021 Excessive weight loss [R63.4] 10/09/2021 Family history of malignant neoplasm of breast *11/25/2017 Fatigue [R53.83] 10/09/2018 Former smoker [Z87.891] 10/09/2021 Hemorrhoids [K64.9] 10/09/2021 History of section [Z98.891] 10/09/2021 History of surgical procedure [Z98.890] 10/09/2021 Hydronephrosis [N13.30] 10/09/2021 Hyperlipidemia [E78.5] 10/09/2021 Intertrigo [L30.4] 10/09/2021 Insomnia [G47.00] 05/20/2017 Palpitations [R00.2] 04/22/2021 Nausea [R11.0] 10/09/2021 Melanocytic nevus [D22.9] 03/17/2018 Large breasts [N62] 10/09/2021 Iron deficiency anemia [D50.9] 05/18/2021 Postoperative anemia due to acute blood loss [D*10/09/2021 Restless leg syndrome [G25.81] 10/07/2016 Shoulder pain [M25.519] 10/09/2021 Skin tag [L91.8] 12/ (more content not included)... Normal [facility] Absolute lymphocyte countOrd ered By: Dr. Costello on 04-27-2022 Lymphocytes Auto (Unsp spec) [#/Vol] 1.31 10*3/uL 0.83-4.51 [facility] Basophil percentageOrdered B y: Dr. Costello on 04-27-2022 Basophils/100 WBC (Bld) 0.6 % 0-1 [facility] Bilirubin [Mass/Vol] 0.70 mg/dL 0.20-1.00 [facility] Comment on above: For patients on eltr ombopag therapy, use of Dimension [place] TBIL is not recommended. Chloride [Moles/Vol] 110 mmol/L 98-107 [facility] Eosinophils/100 WBC (Bld) 1.5 % 0-5 [facility] Glucose [Mass/Vol] 95 mg/dL 74-106 [facility] Neutrophils (Bld) [#/Vol] 3.0 10*3/uL 2.0-7.7 [facility] Neutrophils/100 WBC (Bld) 62.9 % 47-70 [facility] Potassium [Moles/Vol] 4.1 mmol/L 3.5-5.1 [facility] Protein [Mass/Vol] 6.8 g/dL 6.4-8.2 [facility] Sodium [Moles/Vol] 141 mmol/L 136-145 [facility] WBC (Bld) [#/Vol] 4.7 10*3/uL 4.4-11.0 [facility] Bilirubin Test strip Ql (U)O rdered By: Dr. Costello on 04-27-2022 Bilirubin Ql (U) Negative Negative [facility] Blood erythrocytes count (nu mber/volume)Ordered By: Dr. Costello on 04-27-2022 RBC (Bld) [#/Vol] 4.40 10*6/uL 4.2-5.4 [facility] Blood hemoglobin measurement (mass/volume)Ordered By: Dr. Costello on 04-27-2022 Hemoglobin (Bld) [Mass/Vol] 13.8 g/dL 12.0-15.0 [facility] Blood lymphocytes/100 leukoc ytesOrdered By: Dr. Costello on 04-27-2022 Lymphocytes/100 WBC (Bld) 27.8 % 19-41 [facility] Blood monocytes/100 leukocyt esOrdered By: Dr. Costello on 04-27-2022 Monocytes/100 WBC (Bld) 7.0 % 0-10 [facility] Blood platelet mean volumeOr dered By: Dr. Costello on 04-27-2022 Platelet mean volume (Bld) [Entitic vol] 9.7 fL 6.2-12.0 [facility] Determination of erythrocyte mean corpuscular volume (MCV)Ordered By: Dr. Costello on 04-27-2022 MCV (RBC) [Entitic vol] 96.4 fL 81-99 [facility] Dilute Dejon's viper venom timeOrdered By: Dr. Costello on 04-27-2022 dRVVT Coag (PPP) [Time] 35.4 s 0.0-47.0 [facility] Hematocrit Auto (Bld) [Volum e fraction]Ordered By: Dr. Costello on 04-27-2022 Hematocrit (Bld) [Volume fraction] 42.4 % 37-47 [facility] INR in Blood by Coagulation assayOrdered By: Dr. Costello on 04-27-2022 INR Coag (Bld) [Relative time] 1.1 {INR} [facility] Ketones Test strip Ql (U)Ord ered By: Dr. Costello on 04-27-2022 Ketones Ql (U) Negative Negative [facility] Laboratory - Chemistry and C hemistry - challengeOrdered By: Dr. Costello on 04-27-2022 ALP [Catalytic activity/Vol] 94 U/L 45-117 [facility] ALT [Catalytic activity/Vol] 28 U/L 13-56 [facility] CO2 [Moles/Vol] 22.0 mmol/L 21.0-32.0 [facility] Globulin (S) [Mass/Vol] 3.1 g/dL 2.2-4.2 [facility] Urea nitrogen/Creatinine [Mass ratio] 16.8 mg/mg 10-20 [facility] Laboratory - CoagulationOrde red By: Dr. Costello on 04-27-2022 aPTT Coag (Bld) [Time] 29.5 s 24.1-36.2 [facility] PT Coag (PPP) [Time] 13.5 s 11.7-14.9 [facility] Laboratory - Hematology and Cell countsOrdered By: Dr. Costello on 04-27-2022 Erythrocyte distribution width (RBC) [Entitic vol] 46.7 fL 35.1-43.9 [facility] Erythrocyte distribution width (RBC) [Ratio] 12.9 % 11.6-14.6 [facility] Immature granulocytes/100 WBC (Bld) 0.200 % 0.0-0.9 [facility] Comment on above: IG% - Immature Granu locytes (promyelocytes, myelocytes and metamyelocytes) > 1% indicates that a LEFT SHIFT is Present. MCH (RBC) [Entitic mass] 31.4 pg 27.0-32.0 [facility] Nucleated RBC/100 WBC (Bld) [Ratio] 0 % 0-5 [facility] Laboratory - Miscellaneous t estsOrdered By: Dr. Costello on 04-27-2022 Service comment (Unsp spec) [Interp] Comment . [facility] Comment on above: Results do not indic ate the presence of a LupusAnticoagulant: abnormal high screening results (PTT-LA,dRVVT, mixing studies), may be due to medication (heparin,warfarin, aspirin), Factor inhibitors, anticardiolipinantibodies, or poor specimen integrity.Performed at: [address] [id number] Director: Matteo Gale MD, Phone: [phone] [facility] Auto (RBC) [Mass/Vol]Or dered By: Dr. Costello on 04-27-2022 MCHC (RBC) [Mass/Vol] 32.5 g/dL 32-36 [facility] Nitrite Test strip Ql (U)Ord ered By: Dr. Costello on 04-27-2022 Nitrite Ql (U) Negative Negative [facility] No Panel InformationOrdered By: Dr. Costello on 04-27-2022 Estimated GFR (MDRD) Amer 72 mL/min >60 [facility] Comment on above: GFR Calc Estimated GFR (MDRD) Non-Af Amer 59 mL/min >60 [facility] Comment on above: Non- GFR Calc Hepatitis B Surface Antigen Non-Reactive Nonreactive [facility] Hepatitis C Antibody Non-Reactive Nonreactive [facility] Comment on above: Non Reactive: < 0.8 Equivocal: >/= 0.8 to < 1.0 Reactive: >/= 1.0The CDC recommends that a reactive/equivocal HCV antibody result be followed up by the HCV Nucleic Acid Amplificationtest ([id number]) Miscellaneous Test Comment MAILED SPECIMEN [facility] Platelets bldOrdered By: Dr. Costello on 04-27-2022 Platelets (Bld) [#/Vol] 191 10*3/uL 150-450 [facility] Protein Test strip Ql (U)Ord ered By: Dr. Costello on 04-27-2022 Protein Ql (U) Negative Negative [facility] Serum hepatitis B virus surf dontrell antibody IgG detectionOrdered By: Dr. Costello on 04-27-2022 HBV surface IgG Ql (S) Reactive [facility] Comment on above: Non Reactive: Incons istent with immunity less than <10 mIU/mL Reactive: Consistent with immunity greater than or equal to 10 mIU/mL Serum or plasma albumin elijah urement (mass/volume)Ordered By: Dr. Costello on 04-27-2022 Albumin [Mass/Vol] 3.7 g/dL 3.2-5.0 [facility] Serum or plasma albumin/glob ulin mass ratioOrdered By: Dr. Costello on 04-27-2022 Albumin/Globulin [Mass ratio] 1.2 {ratio} 0.9-2.4 [facility] Serum or plasma calcium elijah urement (mass/volume)Ordered By: Dr. Costello on 04-27-2022 Calcium [Mass/Vol] 9.0 mg/dL 8.5-10.1 [facility] Serum or plasma creatinine m easurement (mass/volume)Ordered By: Dr. Costello on 04-27-2022 Creatinine [Mass/Vol] 1.01 mg/dL 0.55-1.02 [facility] Comment on above: The validity of the calculated GFR & GFRAA in patients over 70 years has not been determined. Clinical correlation is essential. Serum or plasma urea nitroge n measurement (mass/volume)Ordered By: Dr. Costello on 04-27-2022 Urea nitrogen [Mass/Vol] 17 mg/dL 7-18 [facility] Thin prep Papanicolaou smear with manual screeningOrdered By: Dr. Costello on 04-27-2022 Thin prep Papanicolaou smear with manual screening 21 U/L 15-37 [facility] Thin prep Papanicolaou smear with manual screening 9 5-15 [facility] Thin prep Papanicolaou smear with manual screening 44.3 sec 0.0-47.6 [facility] Thin prep Papanicolaou smear with manual screening 1.14 Ratio 0.00-1.34 [facility] Thin prep Papanicolaou smear with manual screening 35.5 sec 0.0-43.5 [facility] Thin prep Papanicolaou smear with manual screening Comment: . [facility] Comment on above: No lupus anticoagula nt was detected. Thrombin time in platelet po or plasmaOrdered By: Dr. Costello on 04-27-2022 Thrombin time Coag (PPP) [Time] 18.2 sec 0.0-23.0 [facility] Urine blood detectionOrdered By: Dr. Costello on 04-27-2022 RBC Ql (U) Negative Negative [facility] Urine clarityOrdered By: Dr. Costello on 04-27-2022 Clarity (U) Clear Clear [facility] Urine color determinationOrd ered By: Dr. Costello on 04-27-2022 Color (U) Yellow Yellow [facility] Urine creatinine measurement (mass/volume)Ordered By: Dr. Costello on 04-27-2022 Creatinine (U) [Mass/Vol] 107.00 mg/dL NO RANGE EST. [facility] Urine glucose detectionOrder ed By: Dr. Costello on 04-27-2022 Glucose Ql (U) Normal mg/dl Normal [facility] Urine leukocyte esterase det ection by dipstickOrdered By: Dr. Costello on 04-27-2022 Leukocyte esterase Test strip Ql (U) 25 /ul Negative [facility] Urine pHOrdered By: Dr. Julio stringer on 04-27-2022 pH (U) 6.0 [pH] 5.0 - 8.0 [facility] Urine protein measurement (m ass/volume)Ordered By: Dr. Costello on 04-27-2022 Protein (U) [Mass/Vol] 9.7 mg/dL 0.0-11.8 [facility] Urine protein/creatinine mas s ratioOrdered By: Dr. Costello on 04-27-2022 Protein/Creatinine (U) [Mass ratio] 91 mg/g CRE 0-200 [facility] Urine specific gravity measu rementOrdered By: Dr. Costello on 04-27-2022 Specific gravity (U) [Rel density] 1.020 1.002-1.030 [facility] Urobilinogen Auto test strip Ql (U)Ordered By: Dr. Costello on 04-27-2022 Urobilinogen Ql (U) Normal mg/dl Normal [facility] Absolute lymphocyte countOrd ered By: Dr. Mcfarlane on 04-19-2022 Lymphocytes Auto (Unsp spec) [#/Vol] 1.00 10*3/uL 0.83-4.51 [facility] Basophil percentageOrdered B y: Dr. Mcfarlane on 04-19-2022 Basophil percentage < 0.2 AI 0.0-0.9 [facility] Basophils/100 WBC (Bld) 0.8 % 0-1 [facility] Bilirubin [Mass/Vol] 0.30 mg/dL 0.20-1.00 [facility] Comment on above: For patients on eltr ombopag therapy, use of Dimension [place] TBIL is not recommended. Chloride [Moles/Vol] 112 mmol/L 98-107 [facility] Eosinophils/100 WBC (Bld) 1.6 % 0-5 [facility] Glucose [Mass/Vol] 91 mg/dL 74-106 [facility] Neutrophils (Bld) [#/Vol] 2.4 10*3/uL 2.0-7.7 [facility] Neutrophils/100 WBC (Bld) 62.2 % 47-70 [facility] Potassium [Moles/Vol] 4.2 mmol/L 3.5-5.1 [facility] Protein [Mass/Vol] 6.7 g/dL 6.4-8.2 [facility] Sodium [Moles/Vol] 140 mmol/L 136-145 [facility] WBC (Bld) [#/Vol] 3.8 10*3/uL 4.4-11.0 [facility] Blood erythrocytes count (nu mber/volume)Ordered By: Dr. Mcfarlane on 04-19-2022 RBC (Bld) [#/Vol] 4.34 10*6/uL 4.2-5.4 [facility] Blood hemoglobin measurement (mass/volume)Ordered By: Dr. Mcfarlane on 04-19-2022 Hemoglobin (Bld) [Mass/Vol] 13.6 g/dL 12.0-15.0 [facility] Blood lymphocytes/100 leukoc ytesOrdered By: Dr. Mcfarlane on 04-19-2022 Lymphocytes/100 WBC (Bld) 26.2 % 19-41 [facility] Blood monocytes/100 leukocyt esOrdered By: Dr. Mcfarlane on 04-19-2022 Monocytes/100 WBC (Bld) 8.9 % 0-10 [facility] Blood platelet mean volumeOr dered By: Dr. Mcfarlane on 04-19-2022 Platelet mean volume (Bld) [Entitic vol] 10.1 fL 6.2-12.0 [facility] Determination of erythrocyte mean corpuscular volume (MCV)Ordered By: Dr. Mcfarlane on 04-19-2022 MCV (RBC) [Entitic vol] 98.4 fL 81-99 [facility] Erythrocyte sedimentation ra teOrdered By: Dr. Mcfarlane on 04-19-2022 ESR (Bld) [Velocity] 3 mm/h 0-30 [facility] Hematocrit Auto (Bld) [Volum e fraction]Ordered By: Dr. Mcfarlane on 04-19-2022 Hematocrit (Bld) [Volume fraction] 42.7 % 37-47 [facility] Laboratory - Chemistry and C hemistry - challengeOrdered By: Dr. Mcfarlane on 04-19-2022 ALP [Catalytic activity/Vol] 94 U/L 45-117 [facility] ALT [Catalytic activity/Vol] 32 U/L 13-56 [facility] CO2 [Moles/Vol] 24.0 mmol/L 21.0-32.0 [facility] Globulin (S) [Mass/Vol] 3.3 g/dL 2.2-4.2 [facility] Urea nitrogen/Creatinine [Mass ratio] 21.7 mg/mg 10-20 [facility] Laboratory - Hematology and Cell countsOrdered By: Dr. Mcfarlane on 04-19-2022 Erythrocyte distribution width (RBC) [Entitic vol] 49.3 fL 35.1-43.9 [facility] Erythrocyte distribution width (RBC) [Ratio] 13.4 % 11.6-14.6 [facility] Immature granulocytes/100 WBC (Bld) 0.300 % 0.0-0.9 [facility] Comment on above: IG% - Immature Granu locytes (promyelocytes, myelocytes and metamyelocytes) > 1% indicates that a LEFT SHIFT is Present. MCH (RBC) [Entitic mass] 31.3 pg 27.0-32.0 [facility] Nucleated RBC/100 WBC (Bld) [Ratio] 0 % 0-5 [facility] MCHC Auto (RBC) [Mass/Vol]Or dered By: Dr. Mcfarlane on 04-19-2022 MCHC (RBC) [Mass/Vol] 31.9 g/dL 32-36 [facility] No Panel InformationOrdered By: Dr. Mcfarlane on 04-19-2022 Anti-Nuclear Antibody Screen Not Reportable [facility] Anti-Nuclear Antibody Screen Positive Negative [facility] Centromere B Antibody <0.2 AI 0.0-0.9 [facility] Estimated GFR (MDRD) Amer 80 mL/min >60 [facility] Comment on above: GFR Calc Estimated GFR (MDRD) Non-Af Amer 66 mL/min >60 [facility] Comment on above: Non- GFR Calc DESKTOP ADMINISTRATOR Antibody <0.2 AI 0.0-0.9 [facility] Platelets bldOrdered By: Dr. Mcfarlane on 04-19-2022 Platelets (Bld) [#/Vol] 177 10*3/uL 150-450 [facility] Serum DNA double strand anti body assay (units/volume)Ordered By: Dr. Mcfarlane on 04-19-2022 DNA double strand Ab Qn (S) 29 [IU]/mL 0-9 [facility] Comment on above: Negative <5 Equivoca l 5 - 9 Positive >9 Serum Josefina-1 antibody assay (u nits/volume)Ordered By: Dr. Mcfarlane on 04-19-2022 Josefina-1 extractable nuclear Ab Qn (S) <0.2 AI 0.0-0.9 [facility] Serum Scl-70 extractable nuc lear antibody assay (units/volume)Ordered By: Dr. Mcfarlane on 04-19-2022 SCL-70 extractable nuclear Ab Qn (S) <0.2 AI 0.0-0.9 [facility] Serum Zambrano extractable nucl ear antibody detectionOrdered By: Dr. Mcfarlane on 04-19-2022 Zambrano extractable nuclear Ab Ql (S) <0.2 AI 0.0-0.9 [facility] Serum or plasma C reactive p rotein measurement (mass/volume)Ordered By: Dr. Mcfarlane on 04-19-2022 CRP [Mass/Vol] mg/L 0.0-3.0 [facility] Comment on above: C-Reactive Protein ( CRP) provides useful information for thediagnosis, therapy and monitoring of inflammatory processesand associated diseases. For the evaluation of Relative Riskfor Cardiovascular Disease, a High Sensitivity CRP (HSCRP)should be ordered. Serum or plasma albumin elijah urement (mass/volume)Ordered By: Dr. Mcfarlane on 04-19-2022 Albumin [Mass/Vol] 3.4 g/dL 3.2-5.0 [facility] Serum or plasma albumin/glob ulin mass ratioOrdered By: Dr. Mcfarlane on 04-19-2022 Albumin/Globulin [Mass ratio] 1.0 {ratio} 0.9-2.4 [facility] Serum or plasma calcium elijah urement (mass/volume)Ordered By: Dr. Mcfarlane on 04-19-2022 Calcium [Mass/Vol] 9.2 mg/dL 8.5-10.1 [facility] Serum or plasma creatinine m easurement (mass/volume)Ordered By: Dr. Mcfarlane on 04-19-2022 Creatinine [Mass/Vol] 0.92 mg/dL 0.55-1.02 [facility] Comment on above: The validity of the calculated GFR & GFRAA in patients over 70 years has not been determined. Clinical correlation is essential. Serum or plasma urea nitroge n measurement (mass/volume)Ordered By: Dr. Mcfarlane on 04-19-2022 Urea nitrogen [Mass/Vol] 20 mg/dL 7-18 [facility] Thin prep Papanicolaou smear with manual screeningOrdered By: Dr. Mcfarlane on 04-19-2022 Thin prep Papanicolaou smear with manual screening 22 U/L 15-37 [facility] Thin prep Papanicolaou smear with manual screening 4 5-15 [facility] No Panel InformationOrdered By: Dr. Hdez on 04-15-2022 Estimated GFR (MDRD) Amer 69 mL/min >60 [facility] Comment on above: GFR Calc Estimated GFR (MDRD) Non-Af Amer 57 mL/min >60 [facility] Comment on above: Non- GFR Calc Serum or plasma creatinine m easurement (mass/volume)Ordered By: Dr. Hdez on 04-15-2022 Creatinine [Mass/Vol] 1.04 mg/dL 0.55-1.02 [facility] Comment on above: The validity of the calculated GFR & GFRAA in patients over 70 years has not been determined. Clinical correlation is essential. Basophil percentageOrdered B y: Dr. Mcfarlane on 03-08-2022 Bilirubin [Mass/Vol] 0.40 mg/dL 0.20-1.00 [facility] Comment on above: For patients on eltr ombopag therapy, use of Dimension [place] TBIL is not recommended. Chloride [Moles/Vol] 108 mmol/L 98-107 [facility] Glucose [Mass/Vol] 94 mg/dL 74-106 [facility] Potassium [Moles/Vol] 4.3 mmol/L 3.5-5.1 [facility] Protein [Mass/Vol] 7.1 g/dL 6.4-8.2 [facility] Sodium [Moles/Vol] 142 mmol/L 136-145 [facility] Iron measurement (mass/mass) Ordered By: Dr. Mcfarlane on 03-08-2022 Iron (Unsp spec) [Mass/Mass] 131 ug/dL 50-170 [facility] Laboratory - Chemistry and C hemistry - challengeOrdered By: Dr. Mcfarlane on 03-08-2022 ALP [Catalytic activity/Vol] 233 U/L 45-117 [facility] ALT [Catalytic activity/Vol] 39 U/L 13-56 [facility] CO2 [Moles/Vol] 25.0 mmol/L 21.0-32.0 [facility] Globulin (S) [Mass/Vol] 3.7 g/dL 2.2-4.2 [facility] Urea nitrogen/Creatinine [Mass ratio] 13.0 mg/mg 10-20 [facility] No Panel InformationOrdered By: Dr. Mcfarlane on 03-08-2022 Estimated GFR (MDRD) Amer 73 mL/min >60 [facility] Comment on above: GFR Calc Estimated GFR (MDRD) Non-Af Amer 60 mL/min >60 [facility] Comment on above: Non- GFR Calc Total Iron Binding Capacity 375 ug/dL 250-450 [facility] Vitamin D 25-Hydroxy 52.6 ng/mL [facility] Comment on above: Vitamin D 25(OH) Sta tus Range Deficiency <20 ng/mL (50nmol/L) Insufficiency 20 - 30 ng/mL (50 - 75 nmol/L) Sufficiency 30 - 100 ng/mL (75 - 250 nmol/L) Toxicity >100 ng/mL (>250 nmol/L) Serum or plasma albumin elijah urement (mass/volume)Ordered By: Dr. Mcfarlane on 03-08-2022 Albumin [Mass/Vol] 3.4 g/dL 3.2-5.0 [facility] Serum or plasma albumin/glob ulin mass ratioOrdered By: Dr. Mcfarlane on 03-08-2022 Albumin/Globulin [Mass ratio] 0.9 {ratio} 0.9-2.4 [facility] Serum or plasma calcium elijah urement (mass/volume)Ordered By: Dr. Mcfarlane on 03-08-2022 Calcium [Mass/Vol] 9.7 mg/dL 8.5-10.1 [facility] Serum or plasma creatinine m easurement (mass/volume)Ordered By: Dr. Mcfarlane on 03-08-2022 Creatinine [Mass/Vol] 1.00 mg/dL 0.55-1.02 [facility] Comment on above: The validity of the calculated GFR & GFRAA in patients over 70 years has not been determined. Clinical correlation is essential. Serum or plasma ferritin reina surement (mass/volume)Ordered By: Dr. Mcfarlane on 03-08-2022 Ferritin [Mass/Vol] 33 ng/mL 8-252 [facility] Serum or plasma iron saturat ion measurement (mass fraction)Ordered By: Dr. Mcfarlane on 03-08-2022 Iron saturation [Mass fraction] 34.9 % 15.0-55.0 [facility] Serum or plasma urea nitroge n measurement (mass/volume)Ordered By: Dr. Mcfarlane on 03-08-2022 Urea nitrogen [Mass/Vol] 13 mg/dL 7-18 [facility] Thin prep Papanicolaou smear with manual screeningOrdered By: Dr. Mcfarlane on 03-08-2022 Thin prep Papanicolaou smear with manual screening 15 U/L 15-37 [facility] Thin prep Papanicolaou smear with manual screening 9 5-15 [facility] INR in Blood by Coagulation assayOrdered By: Linda Díaz on 03-04-2022 INR Coag (Bld) [Relative time] 1.0 {INR} [facility] Laboratory - CoagulationOrde red By: Linda Díaz on 03-04-2022 aPTT Coag (Bld) [Time] 28.0 s 24.1-36.2 [facility] PT Coag (PPP) [Time] 13.3 s 11.7-14.9 [facility] CNPNon 03-03-2022 ALTHEAN Telephone (FAMMAS) MARK ANDERSON ([id number]) 1960 F Date Time Provider Department 03/03/22 RITESH ANTONIO During your visit today, we recorded the following information about you: Josias De Dios LPN 03/03/2022 2:22 PM Signed Patient stated she was in the ER for severe constipation last night, patient stated they gave her colonoscopy prep to help, but she feels it is a blockage. This nurse advised for patient to schedule with Dr. Antonio for treatment if feels she needs to see him. Patient was transferred to schedule an appointment Josias De Dios LPN March 03, 2022 2:22 PM Allergies As of Date: 03/03/2022 Noted Allergy Reaction AMOXIL (AMOXICILLIN) 11/18/2004 2 - Rash 4 - Hives 9 - Itching HYDROCODONE-ACETAMINO PHEN 03/15/2013 2 - Rash 4 - Hives 9 - Itching 1 - Mental Status Change PENICILLINS 11/18/2004 4 - Hives 9 - Itching 2 - Rash ROSUVASTATIN 10/09/2018 14 - Other: See Comments Date Reviewed: 01/28/2022 Reviewed by: Kamaljit Brown, GOLF COURSE DESIGNER.[employer]ER WIND UP HELPER - Fully Assessed Reason for Visit: Patient Update [1234] Prescriptions as of 03/03/2022 - topiramate (TOPAMAX) 25 mg tablet Take 1 tablet by mouth once daily. - metoprolol tartrate, short acting, (LOPRESSOR) 50 mg tablet Take 1 tablet by mouth twice daily. - traZODone (DESYREL) 100 mg tablet Take 1.5 tablets by mouth daily at bedtime. 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 Abnormal mammogram [R92.8] 11/25/2017 Acute postoperative pain [G89.18] 10/09/2021 Anemia [D64.9] 10/09/2021 Chronic laxative abuse [F55.2] 10/09/2018 Chronic thoracic back pain [M54.6, G89.29] 10/09/2021 Disorder of tendon [M67.90] 03/17/2018 Dizziness [R42] 04/22/2021 Drug-induced pruritus [L29.8, T50.905A] 10/09/2021 Excessive weight loss [R63.4] 10/09/2021 Family history of malignant neoplasm of breast *11/25/2017 Fatigue [R53.83] 10/09/2018 Former smoker [Z87.891] 10/09/2021 Hemorrhoids [K64.9] 10/09/2021 History of section [Z98.891] 10/09/2021 History of surgical procedure [Z98.890] 10/09/2021 Hydronephrosis [N13.30] 10/09/2021 Hyperlipidemia [E78.5] 10/09/2021 Intertrigo [L30.4] 10/09/2021 Insomnia [G47.00] 05/20/2017 Palpitations [R00.2] 04/22/2021 Nausea [R11.0] 10/09/2021 Melanocytic nevus [D22.9] 03/17/2018 Large breasts [N62] 10/09/2021 Iron deficiency anemia [D50.9] 05/18/2021 Postoperative anemia due to acute blood loss [D*10/09/2021 Restless leg syndrome [G25.81] 10/07/2016 Shoulder pain [M25.519] 10/09/2021 Skin tag [L91.8] 01/27/2018 Unspecified disorder of eye and adnexa [H57.9] 10/08/2016 Visit for screening mammogram [Z12.31] 09/29/2017 Well adult health check [Z00.00] 10/08/2016 Sinus tachycardia by electrocardiography [R00.0]01/27/2022 Ventricular bigeminy [I49.8] 01/27/2022 Encounter Status:Closed by JOSIAS DE DIOS on 03/03/22 [facility] Absolute lymphocyte countOrd ered By: Dr. Green on 03-02-2022 Lymphocytes Auto (Unsp spec) [#/Vol] 0.89 10*3/uL 0.83-4.51 [facility] Basophil percentageOrdered B y: Dr. Green on 03-02-2022 Basophil percentage 0 SEEN /hpf 0-5 [facility] Basophils/100 WBC (Bld) 1.1 % 0-1 [facility] Bilirubin [Mass/Vol] 0.50 mg/dL 0.20-1.00 [facility] Comment on above: For patients on eltr ombopag therapy, use of Dimension [place] TBIL is not recommended. Chloride [Moles/Vol] 110 mmol/L 98-107 [facility] Eosinophils/100 WBC (Bld) 4.0 % 0-5 [facility] Glucose [Mass/Vol] 103 mg/dL 74-106 [facility] Comment on above: Fasting Glucose resu lt from 100 to 125 mg/dL suggests IMPAIRED HOMEOSTASIS per A.D.A. criteria. Neutrophils (Bld) [#/Vol] 2.3 10*3/uL 2.0-7.7 [facility] Neutrophils/100 WBC (Bld) 63.0 % 47-70 [facility] Potassium [Moles/Vol] 3.7 mmol/L 3.5-5.1 [facility] Protein [Mass/Vol] 6.7 g/dL 6.4-8.2 [facility] Sodium [Moles/Vol] 140 mmol/L 136-145 [facility] WBC (Bld) [#/Vol] 3.7 10*3/uL 4.4-11.0 [facility] Bilirubin Test strip Ql (U)O rdered By: Dr. Green on 03-02-2022 Bilirubin Ql (U) Negative Negative [facility] Blood erythrocytes count (nu mber/volume)Ordered By: Dr. Green on 03-02-2022 RBC (Bld) [#/Vol] 4.63 10*6/uL 4.2-5.4 [facility] Blood hemoglobin measurement (mass/volume)Ordered By: Dr. Green on 03-02-2022 Hemoglobin (Bld) [Mass/Vol] 14.8 g/dL 12.0-15.0 [facility] Blood lymphocytes/100 leukoc ytesOrdered By: Dr. Green on 03-02-2022 Lymphocytes/100 WBC (Bld) 23.9 % 19-41 [facility] Blood monocytes/100 leukocyt esOrdered By: Dr. Green on 03-02-2022 Monocytes/100 WBC (Bld) 7.5 % 0-10 [facility] Blood platelet mean volumeOr dered By: Dr. Green on 03-02-2022 Platelet mean volume (Bld) [Entitic vol] 10.2 fL 6.2-12.0 [facility] Determination of erythrocyte mean corpuscular volume (MCV)Ordered By: Dr. Green on 03-02-2022 MCV (RBC) [Entitic vol] 95.7 fL 81-99 [facility] Hematocrit Auto (Bld) [Volum e fraction]Ordered By: Dr. Green on 03-02-2022 Hematocrit (Bld) [Volume fraction] 44.3 % 37-47 [facility] Ketones Test strip Ql (U)Ord ered By: Dr. Green on 03-02-2022 Ketones Ql (U) 15 mg/dl Negative [facility] Laboratory - Chemistry and C hemistry - challengeOrdered By: Dr. Green on 03-02-2022 ALP [Catalytic activity/Vol] 384 U/L 45-117 [facility] ALT [Catalytic activity/Vol] 101 U/L 13-56 [facility] CO2 [Moles/Vol] 25.0 mmol/L 21.0-32.0 [facility] Globulin (S) [Mass/Vol] 3.6 g/dL 2.2-4.2 [facility] Lipase [Catalytic activity/Vol] 181 U/L 73-393 [facility] Urea nitrogen/Creatinine [Mass ratio] 15.7 mg/mg 10-20 [facility] Laboratory - Hematology and Cell countsOrdered By: Dr. Green on 03-02-2022 Erythrocyte distribution width (RBC) [Entitic vol] 47.3 fL 35.1-43.9 [facility] Erythrocyte distribution width (RBC) [Ratio] 13.4 % 11.6-14.6 [facility] Immature granulocytes/100 WBC (Bld) 0.500 % 0.0-0.9 [facility] Comment on above: IG% - Immature Granu locytes (promyelocytes, myelocytes and metamyelocytes) > 1% indicates that a LEFT SHIFT is Present. MCH (RBC) [Entitic mass] 32.0 pg 27.0-32.0 [facility] Nucleated RBC/100 WBC (Bld) [Ratio] 0 % 0-5 [facility] MCHC Auto (RBC) [Mass/Vol]Or dered By: Dr. Green on 03-02-2022 MCHC (RBC) [Mass/Vol] 33.4 g/dL 32-36 [facility] Mucus LM Ql (Urine sed)Order ed By: Dr. Green on 03-02-2022 Mucus Ql (Urine sed) 0 SEEN /hpf [facility] Nitrite Test strip Ql (U)Ord ered By: Dr. Green on 03-02-2022 Nitrite Ql (U) Negative Negative [facility] No Panel InformationOrdered By: Dr. Green on 03-02-2022 Estimated Creatinine Clearance Calc 50.72 ml/min [facility] Estimated GFR (MDRD) Amer 83 mL/min >60 [facility] Comment on above: GFR Calc Estimated GFR (MDRD) Non-Af Amer 69 mL/min >60 [facility] Comment on above: Non- GFR Calc Platelets bldOrdered By: Dr. Green on 03-02-2022 Platelets (Bld) [#/Vol] 194 10*3/uL 150-450 [facility] Protein Test strip Ql (U)Ord ered By: Dr. Green on 03-02-2022 Protein Ql (U) Negative Negative [facility] Serum or plasma albumin elijah urement (mass/volume)Ordered By: Dr. Green on 03-02-2022 Albumin [Mass/Vol] 3.1 g/dL 3.2-5.0 [facility] Serum or plasma albumin/glob ulin mass ratioOrdered By: Dr. Green on 03-02-2022 Albumin/Globulin [Mass ratio] 0.9 {ratio} 0.9-2.4 [facility] Serum or plasma calcium elijah urement (mass/volume)Ordered By: Dr. Green on 03-02-2022 Calcium [Mass/Vol] 9.0 mg/dL 8.5-10.1 [facility] Serum or plasma creatinine m easurement (mass/volume)Ordered By: Dr. Green on 03-02-2022 Creatinine [Mass/Vol] 0.89 mg/dL 0.55-1.02 [facility] Comment on above: The validity of the calculated GFR & GFRAA in patients over 70 years has not been determined. Clinical correlation is essential. Serum or plasma urea nitroge n measurement (mass/volume)Ordered By: Dr. Green on 03-02-2022 Urea nitrogen [Mass/Vol] 14 mg/dL 7-18 [facility] Squamous epithelial cells de tection in urine sediment by light microscopyOrdered By: Dr. Green on 03-02-2022 Epithelial cells.squamous LM Ql (Urine sed) 0 SEEN /hpf 5-10 [facility] Thin prep Papanicolaou smear with manual screeningOrdered By: Dr. Green on 03-02-2022 Thin prep Papanicolaou smear with manual screening 35 U/L 15-37 [facility] Thin prep Papanicolaou smear with manual screening 5 5-15 [facility] Urine blood detectionOrdered By: Dr. Green on 03-02-2022 RBC Ql (U) Negative Negative [facility] RBC Ql (U) 0 SEEN /hpf 0-5 [facility] Urine clarityOrdered By: Dr. Green on 03-02-2022 Clarity (U) Clear Clear [facility] Urine color determinationOrd ered By: Dr. Green on 03-02-2022 Color (U) Yellow Yellow [facility] Urine glucose detectionOrder ed By: Dr. Green on 03-02-2022 Glucose Ql (U) Normal mg/dl Normal [facility] Urine leukocyte esterase det ection by dipstickOrdered By: Dr. Green on 03-02-2022 Leukocyte esterase Test strip Ql (U) Negative Negative [facility] Urine pHOrdered By: Dr. Phoenix owens on 03-02-2022 pH (U) 6.0 [pH] 5.0 - 8.0 [facility] Urine sediment bacteria coun t by microscopy (number/high power field)Ordered By: Dr. Green on 03-02-2022 Bacteria LM.HPF (Urine sed) [#/Area] 0 /[HPF] None Seen [facility] Urine specific gravity measu rementOrdered By: Dr. Green on 03-02-2022 Specific gravity (U) [Rel density] 1.010 1.002-1.030 [facility] Urobilinogen Auto test strip Ql (U)Ordered By: Dr. Green on 03-02-2022 Urobilinogen Ql (U) Normal mg/dl Normal [facility] Culture, urineOrdered By: Gill Rangel on 02-28-2022 Bacteria identified Cx Nom (U) Positive [facility] Basophil percentageOrdered B y: Ricardo Rangel on 02-26-2022 Basophil percentage 0-5 SEEN /hpf 0-5 [facility] Bilirubin Test strip Ql (U)O rdered By: Ricardo Rangel on 02-26-2022 Bilirubin Ql (U) Negative Negative [facility] Hyaline casts LM.LPF (Urine sed) [#/Area]Ordered By: Ricardo Rangel on 02-26-2022 Hyaline casts (Urine sed) [#/Area] 0 /[LPF] 0-5 [facility] Ketones Test strip Ql (U)Ord ered By: Ricardo Rangel on 02-26-2022 Ketones Ql (U) 150 mg/dl Negative [facility] Comment on above: CRITICAL VALUE *HCRI TICAL VALUE VERIFIED. CALLED TO [id number]/06/23 Karolina Berry.RESULTS READ BACK BY SAME . Laboratory - Chemistry and C hemistry - challengeon 02-26-2022 Bilirubin Ql (U) Small (1+) [facility] Glucose Ql (U) Negative [facility] Ketones Ql (U) Large (80+) [facility] pH (U) 5.0 [pH] [facility] Specific gravity (U) [Rel density] 1.020 [facility] Urobilinogen (U) [Mass/Vol] 0.8084041 mg/dL [facility] Laboratory - Hematology and Cell countson 02-26-2022 Hemoglobin Ql (U) Negative [facility] Laboratory - Microbiology an d Antimicrobial susceptibilityon 02-26-2022 SARS-CoV-2 (COVID-19) RNA SALVATORE+probe Ql (Unsp spec) Not detected [facility] Laboratory - Specimen inform ationon 02-26-2022 Clarity (U) Clear [facility] Color (U) Yellow [facility] Laboratory - Urinalysison Nitrite Ql (U) Negative [facility] Protein Ql (U) Negative [facility] Mucus LM Ql (Urine sed)Order ed By: Ricardo Rangel on 02-26-2022 Mucus Ql (Urine sed) 0 SEEN /hpf [facility] Nitrite Test strip Ql (U)Ord ered By: Ricardo Rangel on 02-26-2022 Nitrite Ql (U) Negative Negative [facility] No Panel Informationon 02-[address] [facility] Urine Non-Hemolyzed Blood Negative [facility] Influenza Types A,B Rapid (Clinic) Not detected [facility] Protein Test strip Ql (U)Ord ered By: Ricardo Rangel on 02-26-2022 Protein Ql (U) 15 mg/dl Negative [facility] Squamous epithelial cells de tection in urine sediment by light microscopyOrdered By: Ricardo Rangel on 02-26-2022 Epithelial cells.squamous LM Ql (Urine sed) 0-5 SEEN /hpf 5-10 [facility] Urine blood detectionOrdered By: Ricardo Rangel on 02-26-2022 RBC Ql (U) 10 /ul Negative [facility] RBC Ql (U) 0 SEEN /hpf 0-5 [facility] Urine clarityOrdered By: Tutu Rangel on 02-26-2022 Clarity (U) Clear Clear [facility] Urine color determinationOrd ered By: Ricardo Rangel on 02-26-2022 Color (U) Yellow Yellow [facility] Urine glucose detectionOrder ed By: Ricardo Rangel on 02-26-2022 Glucose Ql (U) Normal mg/dl Normal [facility] Urine leukocyte esterase det ection by dipstickOrdered By: Ricardo Rangel on 02-26-2022 Leukocyte esterase Test strip Ql (U) Negative Negative [facility] Urine pHOrdered By: Ricardo lindsay on 02-26-2022 pH (U) 6.0 [pH] 5.0 - 8.0 [facility] Urine sediment bacteria coun t by microscopy (number/high power field)Ordered By: Ricardo Rangel on 02-26-2022 Bacteria LM.HPF (Urine sed) [#/Area] 0 /[HPF] None Seen [facility] Urine sediment uric acid cry stal count by microscopy (number/high power field)Ordered By: Ricardo Rangel on 02-26-2022 Urate crystals LM.HPF (Urine sed) [#/Area] 2 /[HPF] [facility] Urine specific gravity measu rementOrdered By: Ricardo Rangel on 02-26-2022 Specific gravity (U) [Rel density] 1.020 1.002-1.030 [facility] Urobilinogen Auto test strip Ql (U)Ordered By: Ricardo Rangel on 02-26-2022 Urobilinogen Ql (U) 1 mg/dl Normal [facility] 01-29-2022 ALTHEAN Telephone (MARIA TERESA) MARK ANDERSON ([id number]) 1960 F Date Time Provider Department 01/29/22 KAMALJIT BROWN During your visit today, we recorded the following information about you: Kamaljit Brown APRN.[facility] 02/01/2022 10:34 AM Addendum Please call and inform patient that her recent labs indicate and underactive thyroid. Patient to have repeat TSH, free T4, and TPO labs drawn in 2 weeks for reevaluation. Orders entered. Also, her liver enzymes are elevated. Patient to avoid alcohol and is to have repeat CMP in 2 weeks along with thyroid labs. Orders entered. Danuta Barrera LPN 02/01/2022 10:52 AM Signed I spoke with patient Mark Anderson and advised her of all information and instructions per Zachery's note. Patient did voice understanding and is agreeable. Danuta Barrera LPN February 01, 2022 10:52 AM Allergies As of Date: 01/29/2022 Noted Allergy Reaction AMOXIL (AMOXICILLIN) 11/18/2004 2 - Rash 4 - Hives 9 - Itching HYDROCODONE-ACETAMINO PHEN 03/15/2013 2 - Rash 4 - Hives 9 - Itching 1 - Mental Status Change PENICILLINS 11/18/2004 4 - Hives 9 - Itching 2 - Rash ROSUVASTATIN 10/09/2018 14 - Other: See Comments Date Reviewed: 01/28/2022 Reviewed by: Kamaljit Brown APRN.[employer] HEL[employer] - Fully Assessed Reason for Visit: Results [95] Primary Visit Diagnosis:Elevated TSH [R79.89] Other Visit Diagnosis:Elevated liver enzymes [R74.8] Order(s):TSH BLD [SQTSH] Order #: [id number] FUTURE T4 FREE/FREE THYROX [SQFT4] Order #: [id number] FUTURE THYROGLOBULIN AB [SQTGAB] Order #: [id number] FUTURE COMP METABOLIC PANEL [SQCMP] Order #: [id number] FUTURE Prescriptions as of 02/01/2022 - topiramate (TOPAMAX) 25 mg tablet Take 1 tablet by mouth once daily. - metoprolol tartrate, short acting, (LOPRESSOR) 50 mg tablet Take 1 tablet by mouth twice daily. - traZODone (DESYREL) 100 mg tablet Take 1.5 tablets by mouth daily at bedtime. 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] 02/21/2017 Abnormal mammogram [R92.8] 11/25/2017 Acute postoperative pain [G89.18] 10/09/2021 Anemia [D64.9] 10/09/2021 Chronic laxative abuse [F55.2] 10/09/2018 Chronic thoracic back pain [M54.6, G89.29] 10/09/2021 Disorder of tendon [M67.90] 03/17/2018 Dizziness [R42] 04/22/2021 Drug-induced pruritus [L29.8, T50.905A] 10/09/2021 Excessive weight loss [R63.4] 10/09/2021 Family history of malignant neoplasm of breast *11/25/2017 Fatigue [R53.83] 10/09/2018 Former smoker [Z87.891] 10/09/2021 Hemorrhoids [K64.9] 10/09/2021 History of section [Z98.891] 10/09/2021 History of surgical procedure [Z98.890] 10/09/2021 Hydronephrosis [N13.30] 10/09/2021 Hyperlipidemia [E78.5] 10/09/2021 Intertrigo [L30.4] 10/09/2021 Insomnia [G47.00] 05/20/2017 Palpitations [R00.2] 04/22/2021 Nausea [R11.0] 10/09/2021 Melanocytic nevus [D22.9] 03/17/2018 Large breasts [N62] 10/09/2021 Iron deficiency anemia [D50.9] 05/18/2021 Postoperative anemia due to acute blood loss [D*10/09/2021 Restless leg syndrome [G25.81] 10/07/2016 Shoulder pain [M25.519] 10/09/2021 Skin tag [L91.8] 01/27/2018 Unspecified disorder of eye and adnexa [H57.9] 10/08/2016 Visit for screening mammogram [Z12.31] 09/29/2017 Well adult health check [Z00.00] 10/08/2016 Sinus tachycardia by electrocardiography [R00.0]01/27/2022 Ventricular bigeminy [I49.8] 01/27/2022 Encounter Status:Closed by DANUTA BARRERA on 02/01/22 [facility] CBC W Auto Differential pane l (Bld)on 01-28-2022 Basophils (Bld) [#/Vol] 0.05 10*3/uL <0.11 k/uL [facility] Basophils/100 WBC (Bld) 1.1 % [facility] Differential cell count method Nom (Bld) Auto [facility] Eosinophils (Bld) [#/Vol] 0.07 10*3/uL <0.46 k/uL [facility] Eosinophils/100 WBC (Bld) 1.5 % [facility] Erythrocyte distribution width (RBC) [Ratio] 12.6 % 11.5 - 15.0 % [facility] Hematocrit (Bld) [Volume fraction] 41.4 % 36.0 - 46.0 % [facility] Hemoglobin (Bld) [Mass/Vol] 13.3 g/dL 11.5 - 15.5 g/dL [facility] Immature granulocytes (Bld) [#/Vol] <0.10 k/uL [facility] Immature granulocytes/100 WBC (Bld) 0.0 % [facility] Lymphocytes (Bld) [#/Vol] 1.85 10*3/uL 1.00 - 4.00 k/uL [facility] Lymphocytes/100 WBC (Bld) 39.6 % [facility] MCH (RBC) [Entitic mass] 30.6 pg 26.0 - 34.0 pg [facility] MCHC (RBC) [Mass/Vol] 32.1 g/dL 30.5 - 36.0 g/dL [facility] MCV (RBC) [Entitic vol] 95.4 fL 80.0 - 100.0 fL [facility] Monocytes (Bld) [#/Vol] 0.49 10*3/uL <0.87 k/uL [facility] Monocytes/100 WBC (Bld) 10.5 % [facility] Neutrophils (Bld) [#/Vol] 2.21 10*3/uL 1.45 - 7.50 k/uL [facility] Neutrophils/100 WBC (Bld) 47.3 % [facility] Nucleated RBC (Bld) [#/Vol] <0.01 k/uL [facility] Nucleated RBC/100 WBC (Bld) [Ratio] 0.0 /100 WBC [facility] Platelet mean volume (Bld) [Entitic vol] 11.0 fL 9.0 - 12.7 fL [facility] Platelets (Bld) [#/Vol] 168 10*3/uL 150 - 400 k/uL [facility] RBC (Bld) [#/Vol] 4.34 10*6/uL 3.90 - 5.2 0 m/uL [facility] WBC (Bld) [#/Vol] 4.67 10*3/uL 3.70 - 11. 00 k/uL [facility] Basophils (Bld) [#/Vol] 0.05 10*3/uL Normal <0.11 [facility] Comment on above: Order Comment: Speci men Type: BLOOD SPECIMEN Ordering Facility: [facility] Address: [address] [address] Performed By: #### 5 7021-8 #### [facility] CLIA [id number] [address] [place] [address] [place] Basophils/100 WBC (Bld) 1.1 % Normal [facility] Comment on above: Order Comment: Speci men Type: BLOOD SPECIMEN Ordering Facility: [facility] Address: [address] [place] [address] Performed By: #### 5 7021-8 #### [facility] CLIA [id number] [address] [place] [address] [place] Differential cell count method Nom (Bld) Auto Normal [facility] Comment on above: Order Comment: Speci men Type: BLOOD SPECIMEN Ordering Facility: [facility] Address: [address] [address] Performed By: #### 5 7021-8 #### [facility] CLIA [id number] [address] [place] [address] [place] Eosinophils (Bld) [#/Vol] 0.07 10*3/uL Normal <0.46 [facility] Comment on above: Order Comment: Speci men Type: BLOOD SPECIMEN Ordering Facility: [facility] Address: [address] [address] Performed By: #### 5 7021-8 #### [facility] CLIA [id number] [address] [place] [address] [place] Eosinophils/100 WBC (Bld) 1.5 % Normal [facility] Comment on above: Order Comment: Speci men Type: BLOOD SPECIMEN Ordering Facility: [facility] Address: [address] [address] Performed By: #### 5 7021-8 #### [facility] CLIA [id number] [address] [place] [address] [place] Erythrocyte distribution width (RBC) [Ratio] 12.6 % Normal 11.5-15.0 [facility] Comment on above: Order Comment: Speci men Type: BLOOD SPECIMEN Ordering Facility: [facility] Address: [address] Performed By: #### 5 7021-8 #### [facility] CLIA [id number] [address] [place] [address] [place] Hematocrit (Bld) [Volume fraction] 41.4 % Normal 36.0-46.0 [facility] Comment on above: Order Comment: Speci men Type: BLOOD SPECIMEN Ordering Facility: [facility] Address: [address] Performed By: #### 5 7021-8 #### [facility] CLIA [id number] [address] [place] [address] [place] Hemoglobin (Bld) [Mass/Vol] 13.3 g/dL Normal 11.5-15.5 [facility] Comment on above: Order Comment: Speci men Type: BLOOD SPECIMEN Ordering Facility: [facility] Address: [address] Performed By: #### 5 7021-8 #### [facility] CLIA [id number] [address] [place] [address] [place] Immature granulocytes (Bld) [#/Vol] 10*3/uL Normal <0.10 [facility] Comment on above: Order Comment: Speci men Type: BLOOD SPECIMEN Ordering Facility: [facility] Address: [address] [address] Performed By: #### 5 7021-8 #### [facility] CLIA [id number] [address] [place] [address] [place] Immature granulocytes/100 WBC (Bld) 0.0 % Normal [facility] Comment on above: Order Comment: Speci men Type: BLOOD SPECIMEN Ordering Facility: [facility] Address: [address] [place] [address] Performed By: #### 5 7021-8 #### [facility] CLIA [id number] [address] [place] [address] [place] Lymphocytes (Bld) [#/Vol] 1.85 10*3/uL Normal 1.00-4.00 [facility] Comment on above: Order Comment: Speci men Type: BLOOD SPECIMEN Ordering Facility: [facility] Address: [address] [place] [address] Performed By: #### 5 7021-8 #### [facility] CLIA [id number] [address] [place] [address] [place] Lymphocytes/100 WBC (Bld) 39.6 % Normal [facility] Comment on above: Order Comment: Speci men Type: BLOOD SPECIMEN Ordering Facility: [facility] Address: [address] [place] [address] Performed By: #### 5 7021-8 #### [facility] CLIA [id number] [address] [place] [address] [place] MCH (RBC) [Entitic mass] 30.6 pg Normal 26.0-34.0 [facility] Comment on above: Order Comment: Speci men Type: BLOOD SPECIMEN Ordering Facility: [facility] Address: [address] Performed By: #### 5 7021-8 #### [facility] CLIA [id number] [address] [place] [address] [place] MCHC (RBC) [Mass/Vol] 32.1 g/dL Normal 30.5-36.0 [facility] Comment on above: Order Comment: Speci men Type: BLOOD SPECIMEN Ordering Facility: [facility] Address: [address] [address] Performed By: #### 5 7021-8 #### [facility] CLIA [id number] [address] [place] [address] [place] MCV (RBC) [Entitic vol] 95.4 fL Normal 80.0-100.0 [facility] Comment on above: Order Comment: Speci men Type: BLOOD SPECIMEN Ordering Facility: [facility] Address: [address] [address] Performed By: #### 5 7021-8 #### [facility] CLIA [id number] [address] [place] [address] [place] Monocytes (Bld) [#/Vol] 0.49 10*3/uL Normal <0.87 [facility] Comment on above: Order Comment: Speci men Type: BLOOD SPECIMEN Ordering Facility: [facility] Address: [address] [address] Performed By: #### 5 7021-8 #### [facility] CLIA [id number] [address] [place] [address] [place] Monocytes/100 WBC (Bld) 10.5 % Normal [facility] Comment on above: Order Comment: Speci men Type: BLOOD SPECIMEN Ordering Facility: [facility] Address: [address] [address] Performed By: #### 5 7021-8 #### [facility] CLIA [id number] [address] [place] [address] [place] Neutrophils (Bld) [#/Vol] 2.21 10*3/uL Normal 1.45-7.50 [facility] Comment on above: Order Comment: Speci men Type: BLOOD SPECIMEN Ordering Facility: [facility] Address: [address] [address] Performed By: #### 5 7021-8 #### [facility] CLIA [id number] [address] [place] [address] [place] Neutrophils/100 WBC (Bld) 47.3 % Normal [facility] Comment on above: Order Comment: Speci men Type: BLOOD SPECIMEN Ordering Facility: [facility] Address: [address] Performed By: #### 5 7021-8 #### [facility] CLIA [id number] [address] [place] [address] [place] Nucleated RBC (Bld) [#/Vol] 10*3/uL Normal <0.01 [facility] Comment on above: Order Comment: Speci men Type: BLOOD SPECIMEN Ordering Facility: [facility] Address: [address] Performed By: #### 5 7021-8 #### [facility] CLIA [id number] [address] [place] [address] [place] Nucleated RBC/100 WBC (Bld) [Ratio] 0.0 /100 WBC Normal [facility] Comment on above: Order Comment: Speci men Type: BLOOD SPECIMEN Ordering Facility: [facility] Address: [address] Performed By: #### 5 7021-8 #### [facility] CLIA [id number] [address] [place] [address] [place] Platelet mean volume (Bld) [Entitic vol] 11.0 fL Normal 9.0-12.7 [facility] Comment on above: Order Comment: Speci men Type: BLOOD SPECIMEN Ordering Facility: [facility] Address: [address] Performed By: #### 5 7021-8 #### [facility] CLIA [id number] [address] [place] [address] [place] Platelets (Bld) [#/Vol] 168 10*3/uL Normal 150-400 [facility] Comment on above: Order Comment: Dorothea roche Type: BLOOD SPECIMEN Ordering Facility: [facility] Address: [address] [place] [address] Performed By: #### 5 7021-8 #### [facility] CLIA [id number] [address] [place] [address] [place] RBC (Bld) [#/Vol] 4.34 10*6/uL Normal 3.90-5.20 [facility] Comment on above: Order Comment: Speci men Type: BLOOD SPECIMEN Ordering Facility: [facility] Address: [address] [place] [address] Performed By: #### 5 7021-8 #### [facility] CLIA [id number] [address] [place] [address] [place] WBC (Bld) [#/Vol] 4.67 10*3/uL Normal 3.70-11.00 [facility] Comment on above: Order Comment: Krissyi kaley Type: BLOOD SPECIMEN Ordering Facility: [facility] Address: [address] [place] [address] Performed By: #### 5 7021-8 #### [facility] CLIA [id number] [address] [place] [address] OF RONNIE CNOVon 01-28-2022 CNOV Office Visit (FAMMAS ) MARK ANDERSON ([id number]) 1960 F Date Time Provider Department 01/28/22 10:00 AM KEVIN, JEFFERIE M FAMMAS During your visit today, we recorded the following information about you: Temperature Pulse Respiration Blood pressure 96.9 degrees 85/minute 14/minute 120/86 Weight Height 76.6 kg 1.549 m Kamaljit Brown APRN.CNP 01/28/2022 10:28 AM Signed - Follow up with cardiology, pulmonary, and GI as instructed by [facility] - Notify office if you have any difficulty getting appointments with these specialists - Continue current medication - Go back to ER if you experience any recurrent symptoms - Complete labs as ordered Kamaljit Brown APRN.CNP 01/28/2022 10:39 AM Signed This note was created using [employer]. Subjective Mark Anderson is a 62 year old female. Mark presents to the office today for a hospital follow up visit after being admitted to [facility] on 01/25/2022 and discharged on 01/27/2022 due to heart palpitations, shortness of breath, and migraines. Patient underwent a significant work up in the hospital, please see discharge summary for details. EKG and cardiac monitoring in hospital revealed sinus tachycardia with PVC's. Patient was initially found to have mild hypokalemia which may have contributed to palpitations. Patient was discharged from the hospital with metoprolol tartrate 50mg by mouth twice a day and topamax 25mg daily. Patient reports that since being discharged she has not been experiencing any chest pain, pressure, palpitations, racing heart beats, or shortness of breath. Patient reports that she does feel good. She was given referrals to follow up with cardiology, pulmonary for sleep apnea evaluation, and GI for colon cancer screening. Patient has not yet scheduled follow up visits with these specialists but she plans to call and schedule appointments with them. Patient would like to return to work and needs return to work paperwork completed. 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 Review of Systems Constitutional: Negative. HENT: Negative. Eyes: Negative. Respiratory: Negative. Cardiovascular: Negative. Gastrointestinal: Negative. Endocrine: Negative. Genitourinary: Negative. Musculoskeletal: Negative. Skin: Negative. Allergic/Immunologic: Negative. Neurological: Negative. Hematological: Negative. Psychiatric/Behaviora l: Negative. Objective BP 120/86 (BP Site: Left Arm, BP Position: Sitting) Pulse 85 Temp 36.1 ?C (96.9 ?F) (Temporal) Resp 14 Ht 154.9 cm (5' 1) Wt 76.6 kg (168 lb 12.8 oz) SpO2 97% BMI 31.89 kg/m? Physical Exam Constitutional: General: She is not in acute distress. Appearance: Normal appearance. She is obese. She is not ill-appearing, toxic-appearing or diaphoretic. HENT: Head: Normocephalic and atraumatic. Right Ear: Tympanic membrane, ear canal and external ear normal. Left Ear: Tympanic membrane, ear canal and external ear normal. Nose: Nose normal. Mouth/Throat: Mouth: Mucous membranes are moist. Pharynx: Oropharynx is clear. Eyes: Extraocular Movements: Extraocular movements intact. Conjunctiva/sclera: Conjunctivae normal. Pupils: Pupils are equal, round, and reactive to light. Cardiovascular: Rate and Rhythm: Normal rate and regular rhythm. Pulses: Normal pulses. Heart sounds: Normal heart sounds. No murmur heard. Pulmonary: Effort: Pulmonary effort is normal. No respiratory distress. Breath sounds: Normal breath sounds. Abdominal: General: Bowel sounds are normal. There is no distension. Palpations: Abdomen is soft. Musculoskeletal: General: Normal range of motion. Cervical back: Normal range of motion and neck supple. No rigidity. Skin: General: Skin is warm and dry. Capillary Refill: Capillary refill takes less than 2 seconds. Neurological: General: No focal deficit present. Mental Status: She is alert and oriented to person, place, and time. Psychiatric: Mood and Affect: Mood normal. Behavior: Behavior normal. Thought Content: Thought content normal. Judgment: Judgment normal. Assessment and Plan ASSESSMENT/PLAN: 1. Sinus tachycardia by electrocardiography - ICD9: 785.0, ICD10: R00.0 (primary diagnosis) Symptoms have resolved. Patient as regular rate and rhythm per auscultation in office today. Patient to continue medications listed below. Obtain labs below. Patient to follow up with cardiology for further evaluation as instructed when discharged from [facility] - METOPROLOL TARTRATE 50 MG TABLET - CBC + DIFF - COMP METABOLIC PANEL - MAGNESIUM BLD - TSH BLD 2. PVC (premature ventricular contraction) - ICD9: 427.69, ICD10: I49.3 Symptoms have resolved. Patient to follow up with cardiology 3. Migraine without aura and wit (more content not included)... Normal [facility] Comprehensive metabolic 2000 panelon 01-28-2022 Albumin [Mass/Vol] 3.6 g/dL 3.2 - 5.0 g/dL [facility] ALP [Catalytic activity/Vol] 136 U/L High 45 - 117 U/L [facility] ALT [Catalytic activity/Vol] 68 U/L High 13 - 61 U/L [facility] Anion gap [Moles/Vol] 7 mmol/L 5 - 16 mmol/L [facility] AST [Catalytic activity/Vol] 58 U/L High 8 - 34 U/L [facility] Bilirubin [Mass/Vol] 0.3 mg/dL 0.2 - 1 .0 mg/dL [facility] Calcium [Mass/Vol] 9.4 mg/dL 8.5 - 10. 5 mg/dL [facility] Chloride [Moles/Vol] 107 mmol/L 98 - 10 7 mmol/L [facility] CO2 [Moles/Vol] 27 mmol/L 21 - 32 mmol/L [facility] Creatinine [Mass/Vol] 0.98 mg/dL High 0.51 - 0.95 mg/dL [facility] Estimated Glomerular Filtration Rate 66 mL/min/1.73m >=60 mL/min/1.73m [facility] Glucose [Mass/Vol] 81 mg/dL 70 - 100 mg/dL [facility] Potassium [Moles/Vol] 4.7 mmol/L 3.5 - 5.1 mmol/L [facility] Protein [Mass/Vol] 6.2 g/dL 6.0 - 8.5 g/dL [facility] Sodium [Moles/Vol] 141 mmol/L 136 - 145 mmol/L [facility] Urea nitrogen [Mass/Vol] 20 mg/dL 7 - 26 mg/dL [facility] Albumin [Mass/Vol] 3.6 g/dL Normal 3.2-5.0 [facility] Comment on above: Order Comment: Speci men Type: BLOOD SPECIMEN Ordering Facility: [facility] Address: [address] [facility] [place] [address] Performed By: #### 2 4323-8, 21683-8, 3016-3 #### [facility] CLIA [id number] [address] [place] [address] [place] ALP [Catalytic activity/Vol] 136 U/L High 45-117 [facility] Comment on above: Order Comment: Speci kaley Type: BLOOD SPECIMEN Ordering Facility: [facility] Address: [address] [place] [address] Performed By: #### 2 4323-8, 51774-7, 3016-3 #### [facility] CLIA [id number] [address] [place] [address] [place] [facility] [place] ALT [Catalytic activity/Vol] 68 U/L High 13-61 [facility] Comment on above: Order Comment: Speci men Type: BLOOD SPECIMEN Ordering Facility: [facility] Address: [address] [place] [address] Result Comment: Resu lts may be falsely depressed after the administration of Sulfasalazine and/or Sulfapyridine. Performed By: #### 2 4323-8, 69125-3, 3015-3 #### [facility] CLIA [id number] [address] [place] [address] Anion gap [Moles/Vol] 7 mmol/L Normal 5-16 [facility] Comment on above: Order Comment: Dorothea roche Type: BLOOD SPECIMEN Ordering Facility: [facility] Address: [address] [place] [address] Performed By: #### 2 4323-8, 72515-1, 6-3 #### [facility] CLIA [id number] [address] [place] [address] [place] AST [Catalytic activity/Vol] 58 U/L High 8-34 [facility] Comment on above: Order Comment: Krissyi kaley Type: BLOOD SPECIMEN Ordering Facility: [facility] Address: [address] [place] [address] Result Comment: Resu lts may be falsely depressed after the administration of Sulfasalazine and/or Sulfapyridine. Performed By: #### 2 4323-8, 63605-1, 6-3 #### [facility] CLIA [id number] [address] [place] [address] [place] Bilirubin [Mass/Vol] 0.3 mg/dL Normal 0.2-1.0 [facility] Comment on above: Order Comment: Speci men Type: BLOOD SPECIMEN Ordering Facility: [facility] Address: [address] [place] [address] Performed By: #### 2 4323-8, 34201-3, 3015-3 #### [facility] CLIA [id number] [address] [place] [address] [place] Calcium [Mass/Vol] 9.4 mg/dL Normal 8.5-10.5 [facility] Comment on above: Order Comment: Speci men Type: BLOOD SPECIMEN Ordering Facility: [facility] Address: [address] [place] [address] Performed By: #### 2 4323-8, , 3 #### [facility] CLIA [id number] [address] [place] [address] [place] Chloride [Moles/Vol] 107 mmol/L Normal 98-107 [facility] Comment on above: Order Comment: Speci men Type: BLOOD SPECIMEN Ordering Facility: [facility] Address: [address] [place] [address] Performed By: #### 2 4323-8, , 3 #### [facility] CLIA [id number] [address] [place] [address] [place] CO2 [Moles/Vol] 27 mmol/L Normal 21-32 [facility] Comment on above: Order Comment: Speci men Type: BLOOD SPECIMEN Ordering Facility: [facility] Address: [address] [place] [address] Performed By: #### 2 4323-8, , 3 #### [facility] CLIA [id number] [address] [place] [address] [place] Creatinine [Mass/Vol] 0.98 mg/dL High 0.51-0.95 [facility] Comment on above: Order Comment: Speci men Type: BLOOD SPECIMEN Ordering Facility: [facility] Address: [place] [address] Result Comment: Josiane ents receiving either N-Acetylcysteine (NAC) or Metamizole prior to venipuncture, may have falsely depressed results. Performed By: #### 2 4323-8, 04424-1, 3015-3 #### [facility] CLIA [id number] [address] [place] [address] [place] ESTIMATED GLOMERULAR FILTRATION RATE 66 mL/min/1.73m??? Normal >=60 [facility] Comment on above: Order Comment: Dorothea roche Type: BLOOD SPECIMEN Ordering Facility: [facility] Address: [place] [address] Result Comment: Mirian mated Glomerular Filtration Rate (eGFR) is calculated using the 2020 CKD-EPI creatinine equation. This equation utilizes serum creatinine, sex, and age as parameters. The creatinine assay has traceable calibration to isotope dilution-mass spectrometry. Refer to KDIGO guidelines for clinical interpretation. In patients with unstable renal function, e.g. those with acute kidney injury, the eGFR may not accurately reflect actual GFR. Performed By: #### 2 4323-8, 39893-1, 3 #### [facility] CLIA [id number] [address] [place], [place] [address] [place] Glucose [Mass/Vol] 81 mg/dL Normal 70-100 [facility] Comment on above: Order Comment: Dorothea roche Type: BLOOD SPECIMEN Ordering Facility: [facility] Address: [place] [address] Result Comment: The [place] [employer] (ADA) provides guidance for cutoff values for fasting glucose and random glucose. The ADA defines fasting as no caloric intake for at least 8 hours. Fasting plasma glucose results between 100 to 125 mg/dL indicate increased risk for diabetes (prediabetes). Fasting plasma glucose results greater than or equal to 126 mg/dL meet the criteria for diagnosis of diabetes. In the absence of unequivocal hyperglycemia, results should be confirmed by repeat testing. In a patient with classic symptoms of hyperglycemia or hyperglycemic crisis, random plasma glucose results greater than or equal to 200 mg/dL meet the criteria for diagnosis of diabetes. Reference: Standards of Medical Care in Diabetes 2016, [place] [employer]. Diabetes Care. 2016.39(Suppl 1). Results may be falsely elevated after the administration of Sulfapyridine. Results may be falsely depressed after the administration of Sulfasalazine. Performed By: #### 2 4323-8, 10844-6, 3015-3 #### [facility] CLIA [id number] [address] [place], [place] [address] [place] Potassium [Moles/Vol] 4.7 mmol/L Normal 3.5-5.1 [facility] Comment on above: Order Comment: Speci men Type: BLOOD SPECIMEN Ordering Facility: [facility] Address: [address] [place] [address] Performed By: #### 2 4323-8, , 3 #### [facility] CLIA [id number] [address] [place] [address] [place] Protein [Mass/Vol] 6.2 g/dL Normal 6.0-8.5 [facility] Comment on above: Order Comment: Speci men Type: BLOOD SPECIMEN Ordering Facility: [facility] Address: [address] [place] [address] Performed By: #### 2 4323-8, , 3 #### [facility] CLIA [id number] [address] [place] [id number] [place] Sodium [Moles/Vol] 141 mmol/L Normal 136-145 [facility] Comment on above: Order Comment: Speci men Type: BLOOD SPECIMEN Ordering Facility: [facility] Address: [address] Performed By: #### 2 4323-8, , 3 #### [facility] CLIA [id number] [address] [place], [place] [id number] [place] Urea nitrogen [Mass/Vol] 20 mg/dL Normal 7-26 [facility] Comment on above: Order Comment: Speci men Type: BLOOD SPECIMEN Ordering Facility: [facility] Address: [place] [address] Performed By: #### 2 4323-8, , 3 #### [facility] CLIA [id number] [address] [place] [address] [place] MAGNESIUM BLDon 01-28-2022 Magnesium [Mass/Vol] 1.8 mg/dL 1.6 - 2 .6 mg/dL [facility] Magnesium SerPl-mCncon 01-28 Magnesium [Mass/Vol] 1.8 mg/dL Normal 1.6-2.6 [facility] Comment on above: Order Comment: Speci men Type: BLOOD SPECIMEN Ordering Facility: [facility] Address: [address] Performed By: #### 2 4323-8, , 3015-04 #### [facility] CLIA [id number] [address] [place] [address] [place] TSH BLDon 01-28-2022 TSH Qn 6.688 m[IU]/L High 0.358 - 3.740 mIU/L [facility] TSH SerPl-aCncon 01-28-2022 TSH Qn 6.688 m[IU]/L High 0.358-3.740 [facility] Comment on above: Order Comment: Speci men Type: BLOOD SPECIMENOrdering Facility: [facility] Address: [address] [place] [id number] Result Comment: 3rd generation ultra sensitive TSH. Performed By: #### 2 4323-8, , 3015-04 ####[facility] [id number] [place] [address] [place] Absolute lymphocyte countOrd ered By: Dr. Srivastava on 01-26-2022 Lymphocytes Auto (Unsp spec) [#/Vol] 0.41 10*3/uL 0.83-4.51 [facility] Basophil percentageOrdered B y: Dr. Srivastava on 01-26-2022 Basophils/100 WBC (Bld) 0.3 % 0-1 [facility] Chloride [Moles/Vol] 113 mmol/L 98-107 [facility] Eosinophils/100 WBC (Bld) 0.6 % 0-5 [facility] Glucose [Mass/Vol] 109 mg/dL 74-106 [facility] Comment on above: Fasting Glucose resu lt from 100 to 125 mg/dL suggests IMPAIRED HOMEOSTASIS per A.D.A. criteria. Neutrophils (Bld) [#/Vol] 2.7 10*3/uL 2.0-7.7 [facility] Neutrophils/100 WBC (Bld) 82.0 % 47-70 [facility] Potassium [Moles/Vol] 3.4 mmol/L 3.5-5.1 [facility] Sodium [Moles/Vol] 142 mmol/L 136-145 [facility] WBC (Bld) [#/Vol] 3.3 10*3/uL 4.4-11.0 [facility] Blood erythrocytes count (nu mber/volume)Ordered By: Dr. Srivastava on 01-26-2022 RBC (Bld) [#/Vol] 4.02 10*6/uL 4.2-5.4 [facility] Blood hemoglobin measurement (mass/volume)Ordered By: Dr. Srivastava on 01-26-2022 Hemoglobin (Bld) [Mass/Vol] 12.5 g/dL 12.0-15.0 [facility] Blood lymphocytes/100 leukoc ytesOrdered By: Dr. Srivastava on 01-26-2022 Lymphocytes/100 WBC (Bld) 12.5 % 19-41 [facility] Blood manual differential co mment interpretation (narrative result)Ordered By: Dr. Srivastava on 01-26-2022 Manual differential comment Justin (Bld) [Interp] SCANNED [facility] Blood monocytes/100 leukocyt esOrdered By: Dr. Srivastava on 01-26-2022 Monocytes/100 WBC (Bld) 4.3 % 0-10 [facility] Blood platelet mean volumeOr dered By: Dr. Srivastava on 01-26-2022 Platelet mean volume (Bld) [Entitic vol] 10.1 fL 6.2-12.0 [facility] Determination of erythrocyte mean corpuscular volume (MCV)Ordered By: Dr. Srivastava on 01-26-2022 MCV (RBC) [Entitic vol] 95.8 fL 81-99 [facility] Hematocrit Auto (Bld) [Volum e fraction]Ordered By: Dr. Srivastava on 01-26-2022 Hematocrit (Bld) [Volume fraction] 38.5 % 37-47 [facility] Laboratory - Chemistry and C hemistry - challengeOrdered By: Dr. Srivastava on 01-26-2022 CO2 [Moles/Vol] 25.0 mmol/L 21.0-32.0 [facility] Urea nitrogen/Creatinine [Mass ratio] 18.3 mg/mg 10-20 [facility] Laboratory - Chemistry and C hemistry - challengeOrdered By: Dr. Cuevas on 01-26-2022 Magnesium [Mass/Vol] 1.8 mg/dL 1.6-2.6 [facility] - Hematology and Cell countsOrdered By: Dr. Srivastava on 01-26-2022 Erythrocyte distribution width (RBC) [Entitic vol] 44.7 fL 35.1-43.9 [facility] Erythrocyte distribution width (RBC) [Ratio] 12.4 % 11.6-14.6 [facility] Immature granulocytes/100 WBC (Bld) 0.300 % 0.0-0.9 [facility] Comment on above: IG% - Immature Granu locytes (promyelocytes, myelocytes and metamyelocytes) > 1% indicates that a LEFT SHIFT is Present. MCH (RBC) [Entitic mass] 31.1 pg 27.0-32.0 [facility] Nucleated RBC/100 WBC (Bld) [Ratio] 0 % 0-5 [facility] MCHC Auto (RBC) [Mass/Vol]Or dered By: Dr. Srivastava on 01-26-2022 MCHC (RBC) [Mass/Vol] 32.5 g/dL 32-36 [facility] No Panel InformationOrdered By: Dr. Srivastava on 01-26-2022 Estimated Creatinine Clearance Calc 58.63 ml/min [facility] Estimated GFR (MDRD) Amer 99 mL/min >60 [facility] Comment on above: GFR Calc Estimated GFR (MDRD) Non-Af Amer 82 mL/min >60 [facility] Comment on above: Non- GFR Calc Troponin I High Sensitivity 5 pg/mL 3.0-54.0 [facility] Comment on above: Please Note: New Lillian t Units and Gender Specific Reference Ranges. For more information see Policy Stat Procedure [place] High Sensitivity Troponin (TNIH) and attachments. No Panel InformationOrdered By: Dr. Cuevas on 01-26-2022 Thyroid Stimulating Hormone (TSH) 1.03 uIU/mL 0.358-3.74 [facility] Platelets bldOrdered By: Dr. Srivastava on 01-26-2022 Platelets (Bld) [#/Vol] 129 10*3/uL 150-450 [facility] Review by pathologistOrdered By: Dr. Srivastava on 01-26-2022 Pathologist review Justin (Unsp spec) [Interp] Reviewed [facility] Comment on above: Previous reported re sult: Carrie buckner Edited by: DAVID on 01/27/22:0938LeukopeniaClinical correlation necessary.Ousmane Bowling M.D. 01/27/22 AMENDED REPORT 01/27/22 0938 PATH REV previously reported as: Carrie buckner Serum or plasma calcium elijah urement (mass/volume)Ordered By: Dr. Srivastava on 01-26-2022 Calcium [Mass/Vol] 7.9 mg/dL 8.5-10.1 [facility] Serum or plasma creatinine m easurement (mass/volume)Ordered By: Dr. Srivastava on 01-26-2022 Creatinine [Mass/Vol] 0.77 mg/dL 0.55-1.02 [facility] Comment on above: The validity of the calculated GFR & GFRAA in patients over 70 years has not been determined. Clinical correlation is essential. Serum or plasma urea nitroge n measurement (mass/volume)Ordered By: Dr. Srivastava on 01-26-2022 Urea nitrogen [Mass/Vol] 14 mg/dL 7-18 [facility] Thin prep Papanicolaou smear with manual screeningOrdered By: Dr. Srivastava on 01-26-2022 Thin prep Papanicolaou smear with manual screening 4 5-15 [facility] Absolute lymphocyte counton 01-25-2022 Lymphocytes Auto (Unsp spec) [#/Vol] 0.24 10*3/uL 0.83-4.51 [facility] Work Phone: Basophil percentageon 2021 Basophils/100 WBC (Bld) 0.2 % 0-1 [facility] Work Phone: Chloride [Moles/Vol] 109 mmol/L 98-107 [facility] Work Phone: Eosinophils/100 WBC (Bld) 1.0 % 0-5 [facility] Work Phone: Glucose [Mass/Vol] 114 mg/dL 74-106 [facility] Work Phone: Comment on above: Fasting Glucose resu lt from 100 to 125 mg/dL suggests IMPAIRED HOMEOSTASIS per A.D.A. criteria. Neutrophils (Bld) [#/Vol] 3.7 10*3/uL 2.0-7.7 [facility] Work Phone: Neutrophils/100 WBC (Bld) 89.1 % 47-70 [facility] Work Phone: Potassium [Moles/Vol] 4.0 mmol/L 3.5-5.1 [facility] Work Phone: Sodium [Moles/Vol] 138 mmol/L 136-145 [facility] Work Phone: WBC (Bld) [#/Vol] 4.1 10*3/uL 4.4-11.0 [facility] Work Phone: Basophil percentageOrdered B y: ED PROVIDER on 01-25-2022 Basophil percentage 0 SEEN /hpf 0-5 [facility] Bilirubin Test strip Ql (U)O rdered By: ED PROVIDER on 01-25-2022 Bilirubin Ql (U) Negative Negative [facility] Blood erythrocytes count (nu mber/volume)on 01-25-2022 RBC (Bld) [#/Vol] 4.42 10*6/uL 4.2-5.4 [facility] Work Phone: Blood hemoglobin measurement (mass/volume)on 01-25-2022 Hemoglobin (Bld) [Mass/Vol] 13.6 g/dL 12.0-15.0 [facility] Work Phone: Blood lymphocytes/100 leukoc yteson 01-25-2022 Lymphocytes/100 WBC (Bld) 5.8 % 19-41 [facility] Work Phone: Blood manual differential co mment interpretation (narrative result)on 01-25-2022 Manual differential comment Justin (Bld) [Interp] SEE COMMENT [facility] Work Phone: Comment on above: LYMPHOPENIA NOTED Blood monocytes/100 leukocyt eson 01-25-2022 Monocytes/100 WBC (Bld) 3.4 % 0-10 [facility] Work Phone: Blood platelet adequacy dete ction by light microscopyOrdered By: Dr. Green on 01-25-2022 Platelets LM Ql (Bld) SLT DEC ADEQ [facility] Blood platelet mean volumeon 01-25-2022 Platelet mean volume (Bld) [Entitic vol] 10.1 fL 6.2-12.0 [facility] Work Phone: Determination of erythrocyte mean corpuscular volume (MCV)on 01-25-2022 MCV (RBC) [Entitic vol] 94.8 fL 81-99 [facility] Work Phone: Hematocrit Auto (Bld) [Volum e fraction]on 01-25-2022 Hematocrit (Bld) [Volume fraction] 41.9 % 37-47 [facility] Work Phone: Ketones Test strip Ql (U)Ord ered By: ED PROVIDER on 01-25-2022 Ketones Ql (U) Negative Negative [facility] Laboratory - Chemistry and C hemistry - challengeon 01-25-2022 CO2 [Moles/Vol] 25.0 mmol/L 21.0-32.0 [facility] Work Phone: Urea nitrogen/Creatinine [Mass ratio] 23.9 mg/mg 10-20 [facility] Work Phone: [phone] Laboratory - Hematology and Cell countsOrdered By: Dr. Green on 01-25-2022 Anisocytosis Ql (Bld) RARE [facility] Laboratory - Hematology and Cell countson 01-25-2022 Erythrocyte distribution width (RBC) [Entitic vol] 43.6 fL 35.1-43.9 [facility] Work Phone: Erythrocyte distribution width (RBC) [Ratio] 12.4 % 11.6-14.6 [facility] Work Phone: Immature granulocytes/100 WBC (Bld) 0.500 % 0.0-0.9 [facility] Work Phone: Comment on above: IG% - Immature Granu locytes (promyelocytes, myelocytes and metamyelocytes) > 1% indicates that a LEFT SHIFT is Present. MCH (RBC) [Entitic mass] 30.8 pg 27.0-32.0 [facility] Work Phone: Nucleated RBC/100 WBC (Bld) [Ratio] 0 % 0-5 [facility] Work Phone: MCHC Auto (RBC) [Mass/Vol]on 01-25-2022 MCHC (RBC) [Mass/Vol] 32.5 g/dL 32-36 [facility] Work Phone: Macrocytes detectionOrdered By: Dr. Green on 01-25-2022 Macrocytes Ql (Bld) RARE [facility] Mucus LM Ql (Urine sed)Order ed By: ED PROVIDER on 01-25-2022 Mucus Ql (Urine sed) 0 SEEN /hpf [facility] Nitrite Test strip Ql (U)Ord ered By: ED PROVIDER on 01-25-2022 Nitrite Ql (U) Negative Negative [facility] No Panel Informationon 01-25 Troponin I High Sensitivity 5 pg/mL 3.0-54.0 [facility] Work Phone: Comment on above: Please Note: New Lillian t Units and Gender Specific Reference Ranges. For more information see Policy Stat Procedure [place] High Sensitivity Troponin (TNIH) and attachments. Estimated Creatinine Clearance Calc 53.74 ml/min [facility] Work Phone: Estimated GFR (MDRD) Amer 89 mL/min >60 [facility] Work Phone: Comment on above: GFR Calc Estimated GFR (MDRD) Non-Af Amer 74 mL/min >60 [facility] Work Phone: Comment on above: Non- GFR Calc No Panel InformationOrdered By: Dr. Green on 01-25-2022 D-Dimer Quantitative (PE/DVT) 0.68 FEU/ug/m 0.27-0.49 [facility] Comment on above: CRITICAL VALUE VERIF IED. CALLED TO TALHA BROWER RN ED01/25/[id number] Shin Colmenares.RESULTS READ BACK BY SAME . D-Dimer ELEVATED (>0.49): Additional studies and clinicalassessments are indicated to conclude diagnosis of:Deep Vein Thrombosis (DVT) or Pulmonary Embolism (PE) Platelets bldon 01-25-2022 Platelets (Bld) [#/Vol] 141 10*3/uL 150-450 [facility] Work Phone: Protein Test strip Ql (U)Ord ered By: ED PROVIDER on 01-25-2022 Protein Ql (U) Negative Negative [facility] RBC morphologyOrdered By: Dr Morena Green on 01-25-2022 RBC morphology finding Nom (Bld) N CHROM NORMAL NORM C&C [facility] Review by pathologistallegra Pathologist review Justin (Unsp spec) [Interp] June dudley [facility] Work Phone: Serum or plasma calcium elijah urement (mass/volume)on 01-25-2022 Calcium [Mass/Vol] 9.0 mg/dL 8.5-10.1 [facility] Work Phone: Serum or plasma creatinine m easurement (mass/volume)on 01-25-2022 Creatinine [Mass/Vol] 0.84 mg/dL 0.55-1.02 [facility] Work Phone: Comment on above: The validity of the calculated GFR & GFRAA in patients over 70 years has not been determined. Clinical correlation is essential. Serum or plasma urea nitroge n measurement (mass/volume)on 01-25-2022 Urea nitrogen [Mass/Vol] 20 mg/dL 7-18 [facility] Work Phone: Squamous epithelial cells de tection in urine sediment by light microscopyOrdered By: ED PROVIDER on 01-25-2022 Epithelial cells.squamous LM Ql (Urine sed) 0 SEEN /hpf 5-10 [facility] Thin prep Papanicolaou smear with manual screeningon 01-25-2022 Thin prep Papanicolaou smear with manual screening 4 5-15 [facility] Work Phone: Urine blood detectionOrdered By: ED PROVIDER on 01-25-2022 RBC Ql (U) Negative Negative [facility] RBC Ql (U) 0 SEEN /hpf 0-5 [facility] Urine clarityOrdered By: ED PROVIDER on 01-25-2022 Clarity (U) Clear Clear [facility] Urine color determinationOrd ered By: ED PROVIDER on 01-25-2022 Color (U) Yellow Yellow [facility] Urine glucose detectionOrder ed By: ED PROVIDER on 01-25-2022 Glucose Ql (U) Normal mg/dl Normal [facility] Urine leukocyte esterase det ection by dipstickOrdered By: ED PROVIDER on 01-25-2022 Leukocyte esterase Test strip Ql (U) Negative Negative [facility] Urine pHOrdered By: ED PROVI DMITRY on 01-25-2022 pH (U) 7.0 [pH] 5.0 - 8.0 [facility] Urine sediment bacteria coun t by microscopy (number/high power field)Ordered By: ED PROVIDER on 01-25-2022 Bacteria LM.HPF (Urine sed) [#/Area] 0 /[HPF] None Seen [facility] Urine specific gravity measu rementOrdered By: ED PROVIDER on 01-25-2022 Specific gravity (U) [Rel density] 1.005 1.002-1.030 [facility] Urobilinogen Auto test strip Ql (U)Ordered By: ED PROVIDER on 01-25-2022 Urobilinogen Ql (U) Normal mg/dl Normal [facility] CBC W Auto Differential pane l (Bld)on 10-12-2021 Basophils (Bld) [#/Vol] 0.05 10*3/uL Normal <0.11 [facility] Comment on above: Order Comment: Speci men Type: BLOOD SPECIMEN Ordering Facility: [facility] Address: [address] [place] [address] Performed By: #### 5 7021-8 #### [facility] CLIA [id number] [address] [place] [address] [place] Basophils/100 WBC (Bld) 1.4 % Normal [facility] Comment on above: Order Comment: Speci men Type: BLOOD SPECIMEN Ordering Facility: [facility] Address: [address] [place] [address] Performed By: #### 5 7021-8 #### [facility] CLIA [id number] [address] [place] [address] [place] Differential cell count method Nom (Bld) Auto Normal [facility] Comment on above: Order Comment: Speci men Type: BLOOD SPECIMEN Ordering Facility: [facility] Address: [address] [place] [address] Performed By: #### 5 7021-8 #### [facility] CLIA [id number] [address] [place] [address] [place] Eosinophils (Bld) [#/Vol] 0.06 10*3/uL Normal <0.46 [facility] Comment on above: Order Comment: Speci men Type: BLOOD SPECIMEN Ordering Facility: [facility] Address: [address] [place] [address] Performed By: #### 5 7021-8 #### [facility] CLIA [id number] [address] [place] [address] [place] Eosinophils/100 WBC (Bld) 1.6 % Normal [facility] Comment on above: Order Comment: Speci men Type: BLOOD SPECIMEN Ordering Facility: [facility] Address: [address] [place] [address] Performed By: #### 5 7021-8 #### [facility] CLIA [id number] [address] [place] [address] [place] Erythrocyte distribution width (RBC) [Ratio] 14.2 % Normal 11.5-15.0 [facility] Comment on above: Order Comment: Speci men Type: BLOOD SPECIMEN Ordering Facility: [facility] Address: [address] [place] [address] Performed By: #### 5 7021-8 #### [facility] CLIA [id number] [address] [place] [address] [place] Hematocrit (Bld) [Volume fraction] 41.6 % Normal 36.0-46.0 [facility] Comment on above: Order Comment: Speci men Type: BLOOD SPECIMEN Ordering Facility: [facility] Address: [address] [place] [address] Performed By: #### 5 7021-8 #### [facility] CLIA [id number] [address] [place] [address] [place] Hemoglobin (Bld) [Mass/Vol] 13.5 g/dL Normal 11.5-15.5 [facility] Comment on above: Order Comment: Speci men Type: BLOOD SPECIMEN Ordering Facility: [facility] Address: [address] [place] [address] Performed By: #### 5 7021-8 #### [facility] CLIA [id number] [address] [place] [address] [place] IMMATURE GRAN % 0.0 % Normal [facility] Comment on above: Order Comment: Speci men Type: BLOOD SPECIMEN Ordering Facility: [facility] Address: [address] [place], [place] [address] Performed By: #### 5 7021-8 #### [facility] CLIA [id number] [address] [place] [address] [place] IMMATURE GRAN ABS <0.03 Normal <0.10 [facility] Comment on above: Order Comment: Speci men Type: BLOOD SPECIMEN Ordering Facility: [facility] Address: [address] [place] [address] Performed By: #### 5 7021-8 #### [facility] CLIA [id number] [address] [place] [address] [place] Lymphocytes (Bld) [#/Vol] 1.41 10*3/uL Normal 1.00-4.00 [facility] Comment on above: Order Comment: Speci men Type: BLOOD SPECIMEN Ordering Facility: [facility] Address: [address] [place] [address] Performed By: #### 5 7021-8 #### [facility] CLIA [id number] [address] [place] [address] [place] Lymphocytes/100 WBC (Bld) 38.6 % Normal [facility] Comment on above: Order Comment: Speci men Type: BLOOD SPECIMEN Ordering Facility: [facility] Address: [address] [place] [address] Performed By: #### 5 7021-8 #### [facility] CLIA [id number] [address] [place] [address] [place] MCH (RBC) [Entitic mass] 29.9 pg Normal 26.0-34.0 [facility] Comment on above: Order Comment: Speci men Type: BLOOD SPECIMEN Ordering Facility: [facility] Address: [address] [place] [address] Performed By: #### 5 7021-8 #### [facility] CLIA [id number] [address] [place] [address] [place] MCHC (RBC) [Mass/Vol] 32.5 g/dL Normal 30.5-36.0 [facility] Comment on above: Order Comment: Speci men Type: BLOOD SPECIMEN Ordering Facility: [facility] Address: [address] [place] [address] Performed By: #### 5 7021-8 #### [facility] CLIA [id number] [address] [place] [address] [place] MCV (RBC) [Entitic vol] 92.2 fL Normal 80.0-100.0 [facility] Comment on above: Order Comment: Speci men Type: BLOOD SPECIMEN Ordering Facility: [facility] Address: [address] Performed By: #### 5 7021-8 #### [facility] CLIA [id number] [address] [place] [address] [place] Monocytes (Bld) [#/Vol] 0.30 10*3/uL Normal <0.87 [facility] Comment on above: Order Comment: Speci men Type: BLOOD SPECIMEN Ordering Facility: [facility] Address: [address] [place], [place] [address] Performed By: #### 5 7021-8 #### [facility] CLIA [id number] [address] [place] [address] [place] Monocytes/100 WBC (Bld) 8.2 % Normal [facility] Comment on above: Order Comment: Speci men Type: BLOOD SPECIMEN Ordering Facility: [facility] Address: [address] [place], [place] [address] Performed By: #### 5 7021-8 #### [facility] CLIA [id number] [address] [place] [address] [place] Neutrophils (Bld) [#/Vol] 1.83 10*3/uL Normal 1.45-7.50 [facility] Comment on above: Order Comment: Speci men Type: BLOOD SPECIMEN Ordering Facility: [facility] Address: [address] [place], [place] [address] Performed By: #### 5 7021-8 #### [facility] CLIA [id number] [address] [place] [address] [place] Neutrophils/100 WBC (Bld) 50.2 % Normal [facility] Comment on above: Order Comment: Speci men Type: BLOOD SPECIMEN Ordering Facility: [facility] Address: [address] [place], [place] [address] Performed By: #### 5 7021-8 #### [facility] CLIA [id number] [address] [place] [address] [place] Nucleated RBC (Bld) [#/Vol] 10*3/uL Normal <0.01 [facility] Comment on above: Order Comment: Speci men Type: BLOOD SPECIMEN Ordering Facility: [facility] Address: [address] Performed By: #### 5 7021-8 #### [facility] CLIA [id number] [address] [place] [address] [place] Nucleated RBC/100 WBC (Bld) [Ratio] 0.0 /100 WBC Normal [facility] Comment on above: Order Comment: Speci men Type: BLOOD SPECIMEN Ordering Facility: [facility] Address: [address] [place], [place] [address] Performed By: #### 5 7021-8 #### [facility] CLIA [id number] [address] [place] [address] [place] Platelet mean volume (Bld) [Entitic vol] 10.9 fL Normal 9.0-12.7 [facility] Comment on above: Order Comment: Speci men Type: BLOOD SPECIMEN Ordering Facility: [facility] Address: [address] [place], [place] [address] Performed By: #### 5 7021-8 #### [facility] CLIA [id number] [address] [place] [address] [place] Platelets (Bld) [#/Vol] 171 10*3/uL Normal 150-400 [facility] Comment on above: Order Comment: Speci men Type: BLOOD SPECIMEN Ordering Facility: [facility] Address: [address] Performed By: #### 5 7021-8 #### [facility] CLIA [id number] [address] [place] [address] [place] RBC (Bld) [#/Vol] 4.51 10*6/uL Normal 3.90-5.20 [facility] Comment on above: Order Comment: Speci men Type: BLOOD SPECIMEN Ordering Facility: [facility] Address: [address] [place], [place] [address] Performed By: #### 5 7021-8 #### [facility] CLIA [id number] [address] [place] [id number] [place] WBC (Bld) [#/Vol] 3.65 10*3/uL Low 3.70-11.00 [facility] Comment on above: Order Comment: Speci men Type: BLOOD SPECIMEN Ordering Facility: [facility] Address: [facility] [place] [address] Performed By: #### 5 7021-8 #### [facility] CLIA [id number] [address] [place] [address] [facility] CNOVon 10-12-2021 CNOV Office Visit (FAMMAS ) MARK ANDERSON ([id number]) 1960 F Date Time Provider Department 10/12/21 2:00 PM RITESH ANTONIO During your visit today, we recorded the following information about you: Temperature Pulse Respiration Blood pressure 96.8 degrees 106/minute 14/minute 120/78 Weight Height 70.1 kg 1.549 m Ritesh Antonio MD 10/12/2021 2:30 PM Signed This note was created using [employer]. Subjective Mark Anderson is a 61 year old female. Mark presents today for annual wellness exam. She is doing well. She has no new complaints today. Review of Systems Constitutional: Negative. HENT: Negative. Eyes: Negative. Respiratory: Negative. Cardiovascular: Negative. Gastrointestinal: Negative. Endocrine: Negative. Genitourinary: Negative. Musculoskeletal: Negative. Skin: Negative. Allergic/Immunologic: Negative. Neurological: Negative. Hematological: Negative. Psychiatric/Behaviora l: Negative. Objective BP 120/78 (BP Site: Left Arm, BP Cuff Size: Large Adult) Pulse 106 Temp 36 ?C (96.8 ?F) (Temporal) Resp 14 Ht 154.9 cm (5' 1) Wt 70.1 kg (154 lb 9.6 oz) SpO2 97% BMI 29.21 kg/m? Physical Exam Vitals reviewed. Constitutional: Appearance: Normal appearance. HENT: Head: Normocephalic and atraumatic. Nose: Nose normal. Eyes: Extraocular Movements: Extraocular movements intact. Pupils: Pupils are equal, round, and reactive to light. Cardiovascular: Rate and Rhythm: Normal rate and regular rhythm. Pulmonary: Effort: Pulmonary effort is normal. Breath sounds: Normal breath sounds. Abdominal: General: Bowel sounds are normal. Palpations: Abdomen is soft. Musculoskeletal: General: Normal range of motion. Cervical back: Normal range of motion and neck supple. Skin: General: Skin is warm and dry. Capillary Refill: Capillary refill takes less than 2 seconds. Neurological: General: No focal deficit present. Mental Status: She is alert and oriented to person, place, and time. Mental status is at baseline. Psychiatric: Mood and Affect: Mood normal. Behavior: Behavior normal. Assessment and Plan Mark was seen today for yearly exam. Diagnoses and all orders for this visit: Wellness examination - COMP METABOLIC PANEL; Future Mixed hyperlipidemia - LIPID PANEL BASIC; Future Other iron deficiency anemia - CBC + DIFF; Future Other orders - traZODone (DESYREL) 100 mg tablet; Take 1.5 tablets by mouth daily at bedtime. Referring Provider: SELF [200] Allergies As of Date: 10/12/2021 Noted Allergy Reaction AMOXIL (AMOXICILLIN) 11/18/2004 2 - Rash 4 - Hives 9 - Itching HYDROCODONE-ACETAMINO PHEN 03/15/2013 2 - Rash 4 - Hives 9 - Itching 1 - Mental Status Change PENICILLINS 11/18/2004 4 - Hives 9 - Itching 2 - Rash ROSUVASTATIN 10/09/2018 14 - Other: See Comments Date Reviewed: 10/12/2021 Reviewed by: Niharika Álvarez LPN - Fully Assessed Reason for Visit: Yearly Exam [187] Cmt: Work physical has questions about trazodone Primary Visit Diagnosis:Wellness examination [Z00.00] Other Visit Diagnoses:Mixed hyperlipidemia [E78.2] Other iron deficiency anemia [D50.8] Order(s):CBC + DIFF [SQCBCDIF] Order #: [id number] FUTURE COMP METABOLIC PANEL [SQCMP] Order #: [id number] FUTURE LIPID PANEL BASIC [SQLIPB] Order #: [id number] FUTURE traZODone (DESYREL) 100 mg tabletTake 1.5 tablets by mouth daily at bedtime.Disp: 135 tabletRfl: 3 Prescriptions as of 10/12/2021 - traZODone (DESYREL) 100 mg tablet Take 1.5 tablets by mouth daily at bedtime. - Phentermine HCl 37.5 mg tablet TAKE 1 TABLET BY MOUTH EVERY DAY AT LEAST 1 HOUR AFTER MEALS - POLY-IRON 150 FORTE 150-25-1 mg-mcg-mg cap Take 1 capsule by mouth once daily. 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 Abnormal mammogram [R92.8] 11/25/2017 Acute postoperative pain [G89.18] 10/09/2021 Anemia [D64.9] 10/09/2021 Chronic laxative abuse [F55.2] 10/09/2018 Chronic thoracic back pain [M54.6, G89.29] 10/09/2021 Disorder of tendon [M67.90] 03/17/2018 Dizziness [R42] 04/22/2021 Drug-induced pruritus [L29.8, T50.905A] 10/09/2021 Excessive weight loss [R63.4] 10/09/2021 Family history of malignant neoplasm of breast *11/25/2017 Fatigue [R53.83] 10/09/2018 Former smoker [Z87.891] 10/09/2021 Hemorrhoids [K64.9] 10/09/2021 History of section [Z98.891] 10/09/2021 History of surgical procedure [Z98.890] 10/09/2021 Hydronephrosis [N13.30] 10/09/2021 Hyperlipidemia [E78.5] 10/09/2021 Intertrigo [L30.4] 10/09/2021 Insomnia [G47.00] 05/20/2017 Palpitations [R00.2] 04/22/2021 Nausea (more content not included)... Normal [facility] Comprehensive metabolic 2000 panelon 10-12-2021 Albumin [Mass/Vol] 4.1 g/dL Normal 3.2-5.0 [facility] Comment on above: Order Comment: Speci men Type: BLOOD SPECIMEN Ordering Facility: [facility] Address: [address] [place] [address] Performed By: #### 2 4323-8 #### [facility] CLIA [id number] [address] [place] [address] #### 41645-1 #### [facility] CLIA [id number] [address] [place], [place] [address]N LAB CLIA [id number] [address] [place], [place] [address] [place] [address] STATES [facility] ALP [Catalytic activity/Vol] 69 U/L Normal 45-117 [facility] Comment on above: Order Comment: Speci men Type: BLOOD SPECIMEN Ordering Facility: [facility] Address: [address] [place] [address] Performed By: #### 2 4323-8 #### [facility] CLIA [id number] [address] [place] [address] OF [place] #### 42104-8 #### [facility] CLIA [id number] [address] [place], [place] [address] [place] OF [facility] [place]NOTE 2][place] [facility] CLIA [id number] [address] [place] [address] [place] ALT [Catalytic activity/Vol] 16 U/L Normal 13-61 [facility] Comment on above: Order Comment: Speci men Type: BLOOD SPECIMEN Ordering Facility: [facility] Address: [address] [place], [place] [address] Result Comment: Resu lts may be falsely depressed after the administration of Sulfasalazine and/or Sulfapyridine. Performed By: #### 2 4323-8 #### [facility] CLIA [id number] [address] [place] [address] [place] #### 11729-5 #### [facility] CLIA [id number] [address] [place], [place] [address] [facility] CLIA [id number] [address] [place] [address] STATES [facility] Anion gap [Moles/Vol] 5 mmol/L Normal 5-16 [facility] Comment on above: Order Comment: Speci men Type: BLOOD SPECIMEN Ordering Facility: [facility] Address: [address] [place] [address] Performed By: #### 2 4323-8 #### [facility] CLIA [id number] [address] [place] [address] #### 98568-2 #### [facility] CLIA [id number] [address] [place], [place] [address]N LAB CLIA [id number] [address] [place] [address] [place] AST [Catalytic activity/Vol] 20 U/L Normal 8-34 [facility] Comment on above: Order Comment: Speci men Type: BLOOD SPECIMEN Ordering Facility: [facility] Address: [address] [place] [address] Result Comment: Resu lts may be falsely depressed after the administration of Sulfasalazine and/or Sulfapyridine. Performed By: #### 2 4323-8 #### [facility] CLIA [id number] [address] [place] [address] [place] #### 71840-9 #### [facility] CLIA [id number] [address] [place], [place] [address]N LAB CLIA [id number] [address] [place] [address] OF [place] Bilirubin [Mass/Vol] 0.6 mg/dL Normal 0.2-1.0 [facility] Comment on above: Order Comment: Speci men Type: BLOOD SPECIMEN Ordering Facility: [facility] Performed By: #### 2 4323-8 #### [facility] CLIA [id number] [address] [place] [address] [place] #### 76802-8 #### [facility] CLIA [id number] [address] [place], [place] [address] [place] OF [facility] CLIA [id number] [address] STATES OF [facility] Calcium [Mass/Vol] 9.8 mg/dL Normal 8.5-10.5 [facility] Comment on above: Order Comment: Speci men Type: BLOOD SPECIMEN Ordering Facility: [facility] Address: [address] [place], [place] [address] [address] Performed By: #### 2 4323-8 #### [facility] CLIA [id number] [address] [place] [address] [place] #### 70238-7 #### [facility] CLIA [id number] [address] [place], [place] [address] [place] [facility] CLIA [id number] [address] [place] [address] [place] Chloride [Moles/Vol] 106 mmol/L Normal 98-107 [facility] Comment on above: Order Comment: Speci men Type: BLOOD SPECIMEN Ordering Facility: [facility] Address: [facility] [place] [address] Performed By: #### 2 4323-8 #### [facility] CLIA [id number] [address] [place] [address] [place] #### 07807-0 #### [facility] CLIA [id number] [address] [place], [place] [address] [facility] CLIA [id number] [address] [place] [address] [place] [facility] CO2 [Moles/Vol] 28 mmol/L Normal 21-32 [facility] Comment on above: Order Comment: Speci men Type: BLOOD SPECIMEN Ordering Facility: [facility] Address: [address] [place] [address] Performed By: #### 2 4323-8 #### [facility] CLIA [id number] [address] [place] [address] OF [place] #### 79640-5 #### [facility] CLIA [id number] [address] [place], [place] [address] [facility] CLIA [id number] [address] [place] [address] [place] Creatinine [Mass/Vol] 0.91 mg/dL Normal 0.51-0.95 [facility] Comment on above: Order Comment: Speci men Type: BLOOD SPECIMEN Ordering Facility: [facility] Address: [address] [place] [address] Result Comment: Josiane ents receiving either N-Acetylcysteine (NAC) or Metamizole prior to venipuncture, may have falsely depressed results. Performed By: #### 2 4323-8 #### [facility] CLIA [id number] [address] [place] [address] STATES OF [place] #### 83497-2 #### [facility] CLIA [id number] [address] [place], [place] [address] [facility] CLIA [id number] [address] [place] [address] STATES OF [place] ESTIMATED GLOMERULAR FILTRATION RATE 73 mL/min/1.73m??? Normal >=60 [facility] Comment on above: Order Comment: Speci men Type: BLOOD SPECIMEN Ordering Facility: [facility] Address: [address] [place] [address] Result Comment: Mirian mated Glomerular Filtration Rate (eGFR) is calculated using the 2020 CKD-EPI creatinine equation. This equation utilizes serum creatinine, sex, and age as parameters. The creatinine assay has traceable calibration to isotope dilution-mass spectrometry. Refer to KDIGO guidelines for clinical interpretation. In patients with unstable renal function, e.g. those with acute kidney injury, the eGFR may not accurately reflect actual GFR. Performed By: #### 2 4323-8 #### [facility] CLIA [id number] [address] [place] [address] #### 30637-5 #### [facility] CLIA [id number] [address] [place] [address] LAB CLIA [id number] [address] [place] [address] [facility] Glucose [Mass/Vol] 98 mg/dL Normal 70-100 [facility] Comment on above: Order Comment: Speci men Type: BLOOD SPECIMEN Ordering Facility: [facility] Address: [address] [place] [address] Result Comment: The [place] Diabetes Association (ADA) provides guidance for cutoff values for fasting glucose and random glucose. The ADA defines fasting as no caloric intake for at least 8 hours. Fasting plasma glucose results between 100 to 125 mg/dL indicate increased risk for diabetes (prediabetes). Fasting plasma glucose results greater than or equal to 126 mg/dL meet the criteria for diagnosis of diabetes. In the absence of unequivocal hyperglycemia, results should be confirmed by repeat testing. In a patient with classic symptoms of hyperglycemia or hyperglycemic crisis, random plasma glucose results greater than or equal to 200 mg/dL meet the criteria for diagnosis of diabetes. Reference: Standards of Medical Care in Diabetes 2016, [place] Diabetes Association. Diabetes Care. 2016.39(Suppl 1). Results may be falsely elevated after the administration of Sulfapyridine. Results may be falsely depressed after the administration of Sulfasalazine. Performed By: #### 2 4323-8 #### [facility] CLIA [id number] [address] [place] [address] #### 77229-6 #### [facility] CLIA [id number] [address] [place] [id number] [facility] CLIA [id number] [address] [place] [address] [place] Potassium [Moles/Vol] 3.9 mmol/L Normal 3.5-5.1 [facility] Comment on above: Order Comment: Speci men Type: BLOOD SPECIMEN Ordering Facility: [facility] Address: [address] [place] [address] Performed By: #### 2 4323-8 #### [facility] CLIA [id number] [address] [place] [address] [place] #### 25136-7 #### [facility] CLIA [id number] [address] [place] [address] [place] [facility] CLIA [id number] [address] [place] [address] [place] Protein [Mass/Vol] 6.6 g/dL Normal 6.0-8.5 [facility] Comment on above: Order Comment: Speci men Type: BLOOD SPECIMEN Ordering Facility: [facility] Address: [address] [place] [address] Performed By: #### 2 4323-8 #### [facility] CLIA [id number] [address] [place] [address] [place] #### 49745-9 #### [facility] CLIA [id number] [address] [place], [place] [address] [place] [facility] CLIA [id number] [address] [place] [address] [place] Sodium [Moles/Vol] 139 mmol/L Normal 136-145 [facility] Comment on above: Order Comment: Speci men Type: BLOOD SPECIMEN Ordering Facility: [facility] Address: [facility] [address] Performed By: #### 2 4323-8 #### [facility] CLIA [id number] [address] [place] [address] [place] #### 14294-6 #### [facility] CLIA [id number] [address] [place] [address] [place] [facility] CLIA [id number] [address] [place] [address] [place] Urea nitrogen [Mass/Vol] 10 mg/dL Normal 7-26 [facility] Comment on above: Order Comment: Speci men Type: BLOOD SPECIMEN Ordering Facility: [facility] Address: [address] [place], [place] [address] Performed By: #### 2 4323-8 #### [facility] CLIA [id number] [address] [place] [address] [place] #### 98529-8 #### [facility] CLIA [id number] [address] [place], [place] [address] [place] [facility] CLIA [id number] [address] [place] [address] [place] Lipid 1996 panelon 2 Cholesterol [Mass/Vol] 219 mg/dL High 0-199 [facility] Comment on above: Order Comment: Speci men Type: BLOOD SPECIMEN Ordering Facility: [facility] Address: [address] [place] [address] Result Comment: <200 mg/dL, Desirable 200-239 mg/dL, Borderline high >239 mg/dL, High Performed By: #### 2 4323-8 #### [facility] CLIA [id number] [address] [place] [address] [place] #### 80721-6 #### [facility] CLIA [id number] [address] [place] [address] [place] [facility] CLIA [id number] [address] [place], [place] [address] [place] [address] STATES OF [place] Cholesterol in HDL [Mass/Vol] 63 mg/dL Normal >40 [facility] Comment on above: Order Comment: Dorothea roche Type: BLOOD SPECIMEN Ordering Facility: [facility] Address: [address] [place], [place] [address] Result Comment: 40-5 9 mg/dL, Acceptable >59 mg/dL, High: Negative risk factor for coronary heart disease <40 mg/dL, Low: Positive risk factor for coronary heart disease Performed By: #### 2 4323-8 #### [facility] CLIA [id number] [address] [place] [address] OF [place] #### 52375-2 #### [facility] CLIA [id number] [address] [place], [place] [address]N LAB CLIA [id number] [address] [place] [address] Cholesterol in LDL [Mass/Vol] 141 mg/dL High 0-129 [facility] Comment on above: Order Comment: Dorothea roche Type: BLOOD SPECIMEN Ordering Facility: [facility] Address: [address] [place], [place] [address] Result Comment: <100 mg/dL, Optimal 100-129 mg/dL, Near optimal/above optimal 130-159 mg/dL, Borderline high 160-189 mg/dL, High >189 mg/dL, Very high Secondary prevention optimal LDL Cholesterol levels are recommended to be < 70 mg/dL Performed By: #### 2 4323-8 #### [facility] CLIA [id number] [address] [place] [address] OF [place] #### 58950-5 #### [facility] CLIA [id number] [address] [place], [place] [address] [facility] CLIA [id number] [address] [place] [address] Cholesterol in LDL/Cholesterol in HDL [Mass ratio] 2.24 {ratio} Normal <2.54 [facility] Comment on above: Order Comment: Dorothea roche Type: BLOOD SPECIMEN Ordering Facility: [facility] Address: [address] [place], [place] [address] Result Comment: Mely duarte: 1. National Cholesterol Education Program ATP III Guideline At-A-Glance Quick Desk Reference: National Heart, Lung, and Blood [place]. National Institutes of Health. 2001: NIH Publication No. 01-3305. 2. An International Atherosclerosis Society position paper: global recommendations for the management of dyslipidemia: executive summary, Atherosclerosis. 2014: 232(2):410-413. Performed By: #### 2 4323-8 #### [facility] CLIA [id number] [address] [place] [address] STATES OF [place] #### 66195-4 #### [facility] CLIA [id number] [address] [place] [address] [facility] CLIA [id number] [address] [place] [address] STATES OF [place] Cholesterol in VLDL [Mass/Vol] 15 mg/dL Normal <30 [facility] Comment on above: Order Comment: Dorothea roche Type: BLOOD SPECIMEN Ordering Facility: [facility] Address: [address] [place] [place] [id number] Performed By: #### 2 4323-8 #### [facility] CLIA [id number] [address] [place] [address] STATES OF [place] #### 41431-2 #### [facility] CLIA [id number] [address] [place] [address] STATES OF [facility] [place] [facility] CLIA [id number] [address] [place] [address] OF [place] Cholesterol non HDL [Mass/Vol] 156 mg/dL High <130 [facility] Comment on above: Order Comment: Dorothea roche Type: BLOOD SPECIMEN Ordering Facility: [facility] Address: [address] [id number] Result Comment: <130 mg/dL, Optimal 130-159 mg/dL, Near optimal/above optimal 160-189 mg/dL, Borderline high 190-219 mg/dL, High >219 mg/dL, Very high Secondary prevention optimal non HDL Cholesterol levels are recommended to be <100 mg/dL Performed By: #### 2 4323-8 #### [facility] CLIA [id number] [address] [place] [address] OF [place] #### 91824-0 #### [facility] CLIA [id number] [address] [place], [place] [address] [facility] CLIA [id number] [address] [place] [address] Cholesterol.total/Shelly sterol in HDL [Mass ratio] 3.48 {ratio} Normal <5.10 [facility] Comment on above: Order Comment: Speci men Type: BLOOD SPECIMEN Ordering Facility: [facility] Address: [address] [place] [address] Performed By: #### 2 4323-8 #### [facility] CLIA [id number] [address] [place] [address] OF [facility] #### 22858-7 #### [facility] CLIA [id number] [address] [place], [place] [address] [facility] [place] CLIA [id number] [address] [place] [address] FASTING TIME 12 hrs Normal [facility] Comment on above: Order Comment: Speci men Type: BLOOD SPECIMEN Ordering Facility: [facility] Address: [address] [place] [address] Performed By: #### 2 4323-8 #### [facility] CLIA [id number] [address] [place] [address] STATES OF [place] #### 54607-2 #### [facility] CLIA [id number] [address] [place], [place] [address] [place] STATES OF [facility], [facility] [place] [facility] CLIA [id number] [address] [place] [address] [place] Triglyceride [Mass/Vol] 76 mg/dL Normal 30-149 [facility] Comment on above: Order Comment: Speci men Type: BLOOD SPECIMEN Ordering Facility: [facility] Address: [place] [address] Result Comment: <150 mg/dL, Normal 150-199 mg/dL, Borderline high 200-499 mg/dL, High >499 mg/dL, Very high Patients receiving either N-Acetylcysteine (NAC) or Metamizole prior to venipuncture, may have falsely depressed results. Performed By: #### 2 4323-8 #### [facility] CLIA [id number] [address] [place] [address] [facility] #### 24830-2 #### [facility] CLIA [id number] [address] [place] [address] [facility] CLIA [id number] [address] [place] [address] [facility] CORTAon 08-28-2021 Cortisol, AM 29.7 mcg/dL High 6.5-26.0 [facility] ([place]) Comment on above: Order Comment: to be done 30 min and 60 min after cosyntropyn is given Performed By: #### G FR, VIDH, CMP, IBC, A1C, CRP, FERR, FE, TSH, FT4, FT3, LIPID #### [address] [address] #### THYAB, CORTA, DHEAS, INSLN, GINO #### [address] [address] Cortisol, AM 22.1 mcg/dL Normal 6.5-26.0 [facility] ([place]) Comment on above: Order Comment: to be done 30 min and 60 min after cosyntropyn is given Performed By: #### G FR, VIDH, CMP, IBC, A1C, CRP, FERR, FE, TSH, FT4, FT3, LIPID #### [address] [address] #### THYAB, CORTA, DHEAS, INSLN, GINO #### [address] [address] .RFon 07-18-2021 Rheumatoid Factor (sendout) <10 Normal <16 [facility] ([place]) Comment on above: Result Comment: Perf ormed By: [facility] [place] [address] [place] [address] Leaf Binner: David Cottrell III, M.D. CLIA#: [id number] Performed By: #### G FR, VIDH, CMP, IBC, A1C, CRP, FERR, FE, TSH, FT4, FT3, LIPID #### [address] [address] #### THYAB, CORTA, DHEAS, INSLN, GINO #### [address] [address] ANAon 07-17-2021 Nuclear Ab IF (S) [Titer] 40 {titer} Normal Neg 40 [facility] ([place]) Comment on above: Result Comment: GINO Screen and Titer methodology is an immunofluorescent technique utilizing Hep2 Substrate. Performed By: #### G FR, VIDH, CMP, IBC, A1C, CRP, FERR, FE, TSH, FT4, FT3, LIPID #### [place] [address] #### THYAB, CORTA, DHEAS, INSLN, GINO #### [address] [address] .Auto Diffon 07-16-2021 Basophil, Absolute 0.0 10 3/mcL Normal 0.0-0.2 [facility] ([place]) Comment on above: Performed By: #### G FR, VIDH, CMP, IBC, A1C, CRP, FERR, FE, TSH, FT4, FT3, LIPID #### [place] [address] #### THYAB, CORTA, DHEAS, INSLN, GINO #### [address] [address] Basophils/100 WBC (Bld) 1.1 % Normal 0.0-2.5 [facility] ([place]) Comment on above: Performed By: #### G FR, VIDH, CMP, IBC, A1C, CRP, FERR, FE, TSH, FT4, FT3, LIPID #### [address] [address] #### THYAB, CORTA, DHEAS, INSLN, GINO #### [address] [address] Eosinophil, Absolute 0.1 10 3/mcL Normal 0.0-0.4 [facility] ([place]) Comment on above: Performed By: #### G FR, VIDH, CMP, IBC, A1C, CRP, FERR, FE, TSH, FT4, FT3, LIPID #### [address] [address] #### THYAB, CORTA, DHEAS, INSLN, GINO #### [address] [address] Eosinophils/100 WBC (Bld) 1.9 % Normal 0.0-7.0 [facility] ([place]) Comment on above: Performed By: #### G FR, VIDH, CMP, IBC, A1C, CRP, FERR, FE, TSH, FT4, FT3, LIPID #### [address] [address] #### THYAB, CORTA, DHEAS, INSLN, GINO #### [address] [address] Lymphocyte, Absolute 1.1 10 3/mcL Normal 0.8-3.9 [facility] ([place]) Comment on above: Performed By: #### G FR, VIDH, CMP, IBC, A1C, CRP, FERR, FE, TSH, FT4, FT3, LIPID #### [address] [address] #### THYAB, CORTA, DHEAS, INSLN, GINO #### [address] [address] Lymphocytes/100 WBC (Bld) 32.7 % Normal 10.0-50.0 [facility] ([place]) Comment on above: Performed By: #### G FR, VIDH, CMP, IBC, A1C, CRP, FERR, FE, TSH, FT4, FT3, LIPID #### [address] [address] #### THYAB, CORTA, DHEAS, INSLN, GINO #### [address] [address] Monocyte, Absolute 0.2 10 3/mcL Normal 0.2-1.0 [facility] ([place]) Comment on above: Performed By: #### G FR, VIDH, CMP, IBC, A1C, CRP, FERR, FE, TSH, FT4, FT3, LIPID #### [address] [address] #### THYAB, CORTA, DHEAS, INSLN, GINO #### [address] [address] Monocytes/100 WBC (Bld) 7.4 % Normal 1.7-13.0 [facility] ([place]) Comment on above: Performed By: #### G FR, VIDH, CMP, IBC, A1C, CRP, FERR, FE, TSH, FT4, FT3, LIPID #### [address] [address] #### THYAB, CORTA, DHEAS, INSLN, GINO #### [address] [address] Neutrophils/100 WBC (Bld) 56.9 % Normal 37.0-80.0 [facility] ([place]) Comment on above: Performed By: #### G FR, VIDH, CMP, IBC, A1C, CRP, FERR, FE, TSH, FT4, FT3, LIPID #### [address] [address] #### THYAB, CORTA, DHEAS, INSLN, GINO #### [address] [address] .GFRon 07-16-2021 GFR Non- 58 ml/min/1.73sqm Normal [facility] ([place]) Comment on above: Result Comment: GFR Population mean for , Non- Americans Ages 20-29 = 116 mL/min/1.73 sq.m. Ages 30-39 = 107 mL/min/1.73 sq.m. Ages 40-49 = 99 mL/min/1.73 sq.m. Ages 50-59 = 93 mL/min/1.73 sq.m. Ages 60-69 = 85 mL/min/1.73 sq.m. Ages 70+ = 75 mL/min/1.73 sq.m. Chronic Kidney Disease: Less than 60 mL/min/1.73 square meters End Stage Renal Disease: Less than 15 mL/min/1.73 square meters Performed By: #### G FR, VIDH, CMP, IBC, A1C, CRP, FERR, FE, TSH, FT4, FT3, LIPID #### [address] [address] #### THYAB, CORTA, DHEAS, INSLN, GINO #### [address] [address] GFR 70 ml/min/1.73sqm Normal [facility] ([place]) Comment on above: Result Comment: GFR Population mean for , Non- Americans Ages 20-29 = 116 mL/min/1.73 sq.m. Ages 30-39 = 107 mL/min/1.73 sq.m. Ages 40-49 = 99 mL/min/1.73 sq.m. Ages 50-59 = 93 mL/min/1.73 sq.m. Ages 60-69 = 85 mL/min/1.73 sq.m. Ages 70+ = 75 mL/min/1.73 sq.m. Chronic Kidney Disease: Less than 60 mL/min/1.73 square meters End Stage Renal Disease: Less than 15 mL/min/1.73 square meters Performed By: #### G FR, VIDH, CMP, IBC, A1C, CRP, FERR, FE, TSH, FT4, FT3, LIPID #### [address] [address] #### THYAB, CORTA, DHEAS, INSLN, GINO #### [address] [address] .[facility] 07-16-2021 Monocyte Distribution Width Not performed Normal 0.00-20.00 [facility] ([place]) Comment on above: Result Comment: MDW testing performed only on adult ER patients between the ages of 18-89 years. Performed By: #### G FR, VIDH, CMP, IBC, A1C, CRP, FERR, FE, TSH, FT4, FT3, LIPID #### [place] [address] #### THYAB, CORTA, DHEAS, INSLN, GINO #### [place] [address] .NEUABSon 07-16-2021 Neutrophil, Absolute 1.9 10 3/mcL Low 2.9-6.2 [facility] ([place]) Comment on above: Performed By: #### G FR, VIDH, CMP, IBC, A1C, CRP, FERR, FE, TSH, FT4, FT3, LIPID #### [place] [address] #### THYAB, CORTA, DHEAS, INSLN, GINO #### [place] [address] A1Con 07-16-2021 HbA1c (Bld) [Mass fraction] 5.6 % Normal 4.3-6.4 [facility] ([place]) Comment on above: Performed By: #### G FR, VIDH, CMP, IBC, A1C, CRP, FERR, FE, TSH, FT4, FT3, LIPID #### [place] [address] #### THYAB, CORTA, DHEAS, INSLN, GINO #### [place] [address] CBCon 07-16-2021 Erythrocyte distribution width (RBC) [Ratio] 14.7 % High 11.5-14.5 [facility] ([place]) Comment on above: Performed By: #### G FR, VIDH, CMP, IBC, A1C, CRP, FERR, FE, TSH, FT4, FT3, LIPID #### [place] [address] #### THYAB, CORTA, DHEAS, INSLN, GINO #### [address] [address] Hematocrit (Bld) [Volume fraction] 37.7 % Normal 37.0-47.0 [facility] ([place]) Comment on above: Performed By: #### G FR, VIDH, CMP, IBC, A1C, CRP, FERR, FE, TSH, FT4, FT3, LIPID #### [place] [id number] #### THYAB, CORTA, DHEAS, INSLN, GINO #### [address] [address] Hgb 12.2 G/dL Normal 12.0-16.0 [facility] ([place]) Comment on above: Performed By: #### G FR, VIDH, CMP, IBC, A1C, CRP, FERR, FE, TSH, FT4, FT3, LIPID #### [place] [address] #### THYAB, CORTA, DHEAS, INSLN, GINO #### [address] [address] MCH (RBC) [Entitic mass] 28.4 pg Normal 27.0-31.2 [facility] ([place]) Comment on above: Performed By: #### G FR, VIDH, CMP, IBC, A1C, CRP, FERR, FE, TSH, FT4, FT3, LIPID #### [place] [id number] #### THYAB, CORTA, DHEAS, INSLN, GINO #### [address] [address] MCHC 32.2 G/dL Low 33.0-37.0 [facility] ([place]) Comment on above: Performed By: #### G FR, VIDH, CMP, IBC, A1C, CRP, FERR, FE, TSH, FT4, FT3, LIPID #### [place] [id number] #### THYAB, CORTA, DHEAS, INSLN, GINO #### [address] [address] MCV (RBC) [Entitic vol] 88.2 fL Normal 80.0-94.0 [facility] ([place]) Comment on above: Performed By: #### G FR, VIDH, CMP, IBC, A1C, CRP, FERR, FE, TSH, FT4, FT3, LIPID #### [address] [address] #### THYAB, CORTA, DHEAS, INSLN, GINO #### [address] [address] Platelet 152 10 3/mcL Normal 130-400 [facility] ([place]) Comment on above: Performed By: #### G FR, VIDH, CMP, IBC, A1C, CRP, FERR, FE, TSH, FT4, FT3, LIPID #### [place] [address] #### THYAB, CORTA, DHEAS, INSLN, GINO #### [address] [address] Platelet mean volume (Bld) [Entitic vol] 8.5 fL Normal 7.4-10.4 [facility] ([place]) Comment on above: Performed By: #### G FR, VIDH, CMP, IBC, A1C, CRP, FERR, FE, TSH, FT4, FT3, LIPID #### [address] [address] #### THYAB, CORTA, DHEAS, INSLN, GINO #### [address] [address] RBC 4.28 10 6/mcL Normal 4.20-5.40 [facility] ([place]) Comment on above: Performed By: #### G FR, VIDH, CMP, IBC, A1C, CRP, FERR, FE, TSH, FT4, FT3, LIPID #### [place] [id number] #### THYAB, CORTA, DHEAS, INSLN, GINO #### [address] [address] WBC 3.4 10 3/mcL Low 4.6-10.8 [facility] ([place]) Comment on above: Performed By: #### G FR, VIDH, CMP, IBC, A1C, CRP, FERR, FE, TSH, FT4, FT3, LIPID #### [address] [address] #### THYAB, CORTA, DHEAS, INSLN, GINO #### [address] [address] CMPon 07-16-2021 Albumin Level 3.6 G/dL Normal 3.5-5.0 [facility] ([place]) Comment on above: Performed By: #### G FR, VIDH, CMP, IBC, A1C, CRP, FERR, FE, TSH, FT4, FT3, LIPID #### [place] [address] #### THYAB, CORTA, DHEAS, INSLN, GINO #### [address] [address] Albumin/Globulin [Mass ratio] 1.2 {ratio} Normal 1.1-2.5 [facility] ([place]) Comment on above: Performed By: #### G FR, VIDH, CMP, IBC, A1C, CRP, FERR, FE, TSH, FT4, FT3, LIPID #### [place] [address] #### THYAB, CORTA, DHEAS, INSLN, GINO #### [address] [address] ALP [Catalytic activity/Vol] 87 U/L Normal 40-135 [facility] ([place]) Comment on above: Performed By: #### G FR, VIDH, CMP, IBC, A1C, CRP, FERR, FE, TSH, FT4, FT3, LIPID #### [address] [address] #### THYAB, CORTA, DHEAS, INSLN, GINO #### [address] [address] ALT [Catalytic activity/Vol] 27 U/L Normal 14-59 [facility] ([place]) Comment on above: Performed By: #### G FR, VIDH, CMP, IBC, A1C, CRP, FERR, FE, TSH, FT4, FT3, LIPID #### [address] [address] #### THYAB, CORTA, DHEAS, INSLN, GINO #### [address] [address] AST [Catalytic activity/Vol] 20 U/L Normal 10-40 [facility] ([place]) Comment on above: Performed By: #### G FR, VIDH, CMP, IBC, A1C, CRP, FERR, FE, TSH, FT4, FT3, LIPID #### [address] [address] #### THYAB, CORTA, DHEAS, INSLN, GINO #### [address] [address] Bili Total 0.3 mg/dL Normal 0.2-1.0 [facility] ([place]) Comment on above: Result Comment: Use of this assay is not recommended for patients undergoing treatment with eltrombopag due to the potential for falsely elevated results. Performed By: #### G FR, VIDH, CMP, IBC, A1C, CRP, FERR, FE, TSH, FT4, FT3, LIPID #### [address] [address] #### THYAB, CORTA, DHEAS, INSLN, GINO #### [address] [address] BUN/Creatinine Ratio 17 ratio Normal 7-27 [facility] ([place]) Comment on above: Performed By: #### G FR, VIDH, CMP, IBC, A1C, CRP, FERR, FE, TSH, FT4, FT3, LIPID #### [address] [address] #### THYAB, CORTA, DHEAS, INSLN, GINO #### [address] [address] Calcium [Mass/Vol] 9.0 mg/dL Normal 8.4-10.2 [facility] ([place]) Comment on above: Performed By: #### G FR, VIDH, CMP, IBC, A1C, CRP, FERR, FE, TSH, FT4, FT3, LIPID #### [address] [address] #### THYAB, CORTA, DHEAS, INSLN, GINO #### [address] [address] Chloride [Moles/Vol] 107 mmol/L Normal 98-107 [facility] ([place]) Comment on above: Performed By: #### G FR, VIDH, CMP, IBC, A1C, CRP, FERR, FE, TSH, FT4, FT3, LIPID #### [address] [address] #### THYAB, CORTA, DHEAS, INSLN, GINO #### [address] [address] CO2 [Moles/Vol] 29 mmol/L Normal 22-29 [facility] ([place]) Comment on above: Performed By: #### G FR, VIDH, CMP, IBC, A1C, CRP, FERR, FE, TSH, FT4, FT3, LIPID #### [address] [address] #### THYAB, CORTA, DHEAS, INSLN, GINO #### [address] [address] Creatinine [Mass/Vol] 0.98 mg/dL Normal 0.55-1.02 [facility] ([place]) Comment on above: Performed By: #### G FR, VIDH, CMP, IBC, A1C, CRP, FERR, FE, TSH, FT4, FT3, LIPID #### [address] [address] #### THYAB, CORTA, DHEAS, INSLN, GINO #### [address] [address] Electrolyte Balance 7.0 mEq/L Normal 4.0-15.0 [facility] ([place]) Comment on above: Performed By: #### G FR, VIDH, CMP, IBC, A1C, CRP, FERR, FE, TSH, FT4, FT3, LIPID #### [address] [address] #### THYAB, CORTA, DHEAS, INSLN, GINO #### [address] [address] Globulin 3.0 G/dL Normal [facility] ([place]) Comment on above: Performed By: #### G FR, VIDH, CMP, IBC, A1C, CRP, FERR, FE, TSH, FT4, FT3, LIPID #### [address] [address] #### THYAB, CORTA, DHEAS, INSLN, GINO #### [address] [address] Glucose [Mass/Vol] 84 mg/dL Normal 70-105 [facility] ([place]) Comment on above: Performed By: #### G FR, VIDH, CMP, IBC, A1C, CRP, FERR, FE, TSH, FT4, FT3, LIPID #### [address] [address] #### THYAB, CORTA, DHEAS, INSLN, GINO #### [address] [address] Potassium [Moles/Vol] 4.3 mmol/L Normal 3.5-5.1 [facility] ([place]) Comment on above: Performed By: #### G FR, VIDH, CMP, IBC, A1C, CRP, FERR, FE, TSH, FT4, FT3, LIPID #### [address] [address] #### THYAB, CORTA, DHEAS, INSLN, GINO #### [address] [address] Sodium [Moles/Vol] 143 mmol/L Normal 136-145 [facility] ([place]) Comment on above: Performed By: #### G FR, VIDH, CMP, IBC, A1C, CRP, FERR, FE, TSH, FT4, FT3, LIPID #### [address] [address] #### THYAB, CORTA, DHEAS, INSLN, GINO #### [address] [address] Total Protein 6.6 G/dL Normal 6.4-8.2 [facility] ([place]) Comment on above: Performed By: #### G FR, VIDH, CMP, IBC, A1C, CRP, FERR, FE, TSH, FT4, FT3, LIPID #### [address] [address] #### THYAB, CORTA, DHEAS, INSLN, GINO #### [address] [address] Urea nitrogen [Mass/Vol] 17 mg/dL Normal 7-18 [facility] ([place]) Comment on above: Performed By: #### G FR, VIDH, CMP, IBC, A1C, CRP, FERR, FE, TSH, FT4, FT3, LIPID #### [address] [address] #### THYAB, CORTA, DHEAS, INSLN, GINO #### [address] [address] CORTAon 07-16-2021 Cortisol, AM 3.8 mcg/dL Low 6.5-26.0 [facility] ([place]) Comment on above: Performed By: #### G FR, VIDH, CMP, IBC, A1C, CRP, FERR, FE, TSH, FT4, FT3, LIPID #### [address] [address] #### THYAB, CORTA, DHEAS, INSLN, GINO #### [address] [address] CRPon 07-16-2021 CRP [Mass/Vol] mg/L Normal 0.0-0.9 [facility] ([place]) Comment on above: Performed By: #### G FR, VIDH, CMP, IBC, A1C, CRP, FERR, FE, TSH, FT4, FT3, LIPID #### [address] [address] #### THYAB, CORTA, DHEAS, INSLN, GINO #### [address] [address] DHEASon 07-16-2021 DHEA-SO4 43.26 mcg/dL Normal 25.90-460.20 [facility] ([place]) Comment on above: Result Comment: No te - New Reference Range in effect 19 Performed By: #### G FR, VIDH, CMP, IBC, A1C, CRP, FERR, FE, TSH, FT4, FT3, LIPID #### [address] [address] #### THYAB, CORTA, DHEAS, INSLN, GINO #### [place] [id number] FEon 07-16-2021 Iron [Mass/Vol] 26 ug/dL Low 50-170 [facility] ([place]) Comment on above: Performed By: #### G FR, VIDH, CMP, IBC, A1C, CRP, FERR, FE, TSH, FT4, FT3, LIPID #### [address] [address] #### THYAB, CORTA, DHEAS, INSLN, GINO #### [address] [address] Sydnee 07-16-2021 Ferritin [Mass/Vol] 10.0 ng/mL Normal 8.0-252.0 [facility] ([place]) Comment on above: Performed By: #### G FR, VIDH, CMP, IBC, A1C, CRP, FERR, FE, TSH, FT4, FT3, LIPID #### [address] [address] #### THYAB, CORTA, DHEAS, INSLN, GINO #### [address] [address] FT3on 07-16-2021 Free T3 [Mass/Vol] 2.47 pg/mL Normal 2.30-4.00 [facility] ([place]) Comment on above: Performed By: #### G FR, VIDH, CMP, IBC, A1C, CRP, FERR, FE, TSH, FT4, FT3, LIPID #### [place] [address] #### THYAB, CORTA, DHEAS, INSLN, GINO #### [place] [address] FT4on 07-16-2021 Free T4 [Mass/Vol] 1.05 ng/dL Normal 0.76-1.46 [facility] ([place]) Comment on above: Performed By: #### G FR, VIDH, CMP, IBC, A1C, CRP, FERR, FE, TSH, FT4, FT3, LIPID #### [place] [address] #### THYAB, CORTA, DHEAS, INSLN, GINO #### [place] [address] IBCon 07-16-2021 TIBC 348 mcg/dL Normal 250-450 [facility] ([place]) Comment on above: Performed By: #### G FR, VIDH, CMP, IBC, A1C, CRP, FERR, FE, TSH, FT4, FT3, LIPID #### [place] [address] #### THYAB, CORTA, DHEAS, INSLN, GINO #### [place] [address] INSLNon 07-16-2021 Insulin 6.62 munit/L Normal 2.60-37.60 [facility] ([place]) Comment on above: Performed By: #### G FR, VIDH, CMP, IBC, A1C, CRP, FERR, FE, TSH, FT4, FT3, LIPID #### [place] [address] #### THYAB, CORTA, DHEAS, INSLN, GINO #### [place] [address] LABORATORYOrdered By: Cash Fall on 07-16-2021 Albumin BCP dye [Mass/Vol] 3.6 G/dL Invalid Interpretation Code 3.5 - 5.0 G/dL AO ADM SS Albumin/Globulin [Mass ratio] 1.2 {ratio} Invalid Interpretation Code 1.1 - 2.5 ratio AO ADM SS ALP [Catalytic activity/Vol] 87 U/L Invalid Interpretation Code 40 - 135 U/L AO ADM SS ALT With P-5'-P [Catalytic activity/Vol] 27 U/L Invalid Interpretation Code 14 - 59 U/L AO ADM SS AST With P-5'-P [Catalytic activity/Vol] 20 U/L Invalid Interpretation Code 10 - 40 U/L AO ADM SS Bilirubin [Mass/Vol] 0.3 mg/dL Invalid Interpretation Code 0.2 - 1.0 mg/dL AO ADM SS C-Reactive Protein mg/dL Invalid Interpretation Code 0.0 - 0.9 mg/dL AO Chemistry S Calcium [Mass/Vol] 9.0 mg/dL Invalid Interpretation Code 8.4 - 10.2 mg/dL AO ADM SS Chloride [Moles/Vol] 107 mmol/L Invalid Interpretation Code 98 - 107 mmol/L AO ADM SS Cholesterol [Mass/Vol] 225 mg/dL Invalid Interpretation Code 0 - 200 mg/dL AO ADM SS Cholesterol in HDL [Mass/Vol] 73 mg/dL Invalid Interpretation Code 40 - 60 mg/dL AO ADM SS Cholesterol in LDL [Mass/Vol] 144 mg/dL Invalid Interpretation Code 0 - 130 mg/dL AO ADM SS CO2 [Moles/Vol] 29 mmol/L Invalid Interpretation Code 22 - 29 mmol/L AO ADM SS Creatinine [Mass/Vol] 0.98 mg/dL Invalid Interpretation Code 0.55 - 1.02 mg/dL AO ADM SS Electrolyte Balance 7.0 mEq/L Invalid Interpretation Code 4.0 - 15.0 mEq/L AO ADM SS Ferritin [Mass/Vol] 10.0 ng/mL Invalid Interpretation Code 8.0 - 252.0 ng/mL AO ADM SS Free T3 [Mass/Vol] 2.47 pg/mL Invalid Interpretation Code 2.30 - 4.00 pg/mL AO ADM SS Free T4 [Mass/Vol] 1.05 ng/dL Invalid Interpretation Code 0.76 - 1.46 ng/dL AO ADM SS Globulin 3.0 G/dL Invalid Interpretation Code AO ADM SS Glucose [Mass/Vol] 84 mg/dL Invalid Interpretation Code 70 - 105 mg/dL AO ADM SS Iron [Mass/Vol] 26 ug/dL Invalid Interpretation Code 50 - 170 mcg/dL AO ADM SS Iron binding capacity [Mass/Vol] 348 mcg/dL Invalid Interpretation Code 250 - 450 mcg/dL AO ADM SS Potassium [Moles/Vol] 4.3 mmol/L Invalid Interpretation Code 3.5 - 5.1 mmol/L AO ADM SS Protein [Mass/Vol] 6.6 G/dL Invalid Interpretation Code 6.4 - 8.2 G/dL AO ADM SS Sodium [Moles/Vol] 143 mmol/L Invalid Interpretation Code 136 - 145 mmol/L AO ADM SS Triglyceride [Mass/Vol] 39 mg/dL Invalid Interpretation Code 0 - 150 mg/dL AO ADM SS TSH Qn 1.17 m[IU]/L Invalid Interpretation Code 0.36 - 3.74 mcIU/mL AO ADM SS Urea nitrogen [Mass/Vol] 17 mg/dL Invalid Interpretation Code 7 - 18 mg/dL AO ADM SS Urea nitrogen/Creatinine [Mass ratio] 17 ratio Invalid Interpretation Code 7 - 27 ratio AO ADM SS Vit. D 25-Hydroxy 65.4 ng/mL Invalid Interpretation Code AO ADM SS LABORATORYOrdered By: Huang Martinez on 07-16-2021 Basophil, Absolute 0.0 103/mcL Invalid Interpretation Code 0.0 - 0.2 10^3/mcL AO Workflow SS Basophils/100 WBC (Bld) 1.1 % Invalid Interpretation Code 0.0 - 2.5 % AO Workflow SS Eosinophil, Absolute 0.1 103/mcL Invalid Interpretation Code 0.0 - 0.4 10^3/mcL AO Workflow SS Eosinophils/100 WBC (Bld) 1.9 % Invalid Interpretation Code 0.0 - 7.0 % AO Workflow SS Erythrocyte distribution width (RBC) [Ratio] 14.7 % Invalid Interpretation Code 11.5 - 14.5 % AO Workflow SS Hematocrit (Bld) [Volume fraction] 37.7 % Invalid Interpretation Code 37.0 - 47.0 % AO Workflow SS Hgb 12.2 G/dL Invalid Interpretation Code 12.0 - 16.0 G/dL AO Workflow SS Lymphocyte, Absolute 1.1 103/mcL Invalid Interpretation Code 0.8 - 3.9 10^3/mcL AO Workflow SS Lymphocytes/100 WBC (Bld) 32.7 % Invalid Interpretation Code 10.0 - 50.0 % AO Workflow SS MCH (RBC) [Entitic mass] 28.4 pg Invalid Interpretation Code 27.0 - 31.2 pg AO Workflow SS MCHC 32.2 G/dL Invalid Interpretation Code 33.0 - 37.0 G/dL AO Workflow SS MCV (RBC) [Entitic vol] 88.2 fL Invalid Interpretation Code 80.0 - 94.0 fL AO Workflow SS Monocyte, Absolute 0.2 103/mcL Invalid Interpretation Code 0.2 - 1.0 10^3/mcL AO Workflow SS Monocytes/100 WBC (Bld) 7.4 % Invalid Interpretation Code 1.7 - 13.0 % AO Workflow SS Neutrophil, Absolute 1.9 103/mcL Invalid Interpretation Code 2.9 - 6.2 10^3/mcL AO Workflow SS Neutrophils/100 WBC (Bld) 56.9 % Invalid Interpretation Code 37.0 - 80.0 % AO Workflow SS Platelet 152 103/mcL Invalid Interpretation Code 130 - 400 10^3/mcL AO Workflow SS Platelet mean volume (Bld) [Entitic vol] 8.5 fL Invalid Interpretation Code 7.4 - 10.4 fL AO Workflow SS RBC 4.28 106/mcL Invalid Interpretation Code 4.20 - 5.40 10^6/mcL AO Workflow SS WBC 3.4 103/mcL Invalid Interpretation Code 4.6 - 10.8 10^3/mcL AO Workflow SS LABORATORYOrdered By: SYSTEM SYSTEM on 07-16-2021 Cortisol [Mass/Vol] 3.8 ug/dL Invalid Interpretation Code 6.5 - 26.0 mcg/dL AH ADM SS DHEA-S [Mass/Vol] 43.26 ug/dL Invalid Interpretation Code 25.90 - 460.20 mcg/dL AH ADM SS GFR 70 ml/min/1.73sqm Invalid Interpretation Code AO Chemistry S GFR Non- 58 ml/min/1.73sqm Invalid Interpretation Code AO Chemistry S Insulin Qn 6.62 munit/L Invalid Interpretation Code 2.60 - 37.60 mU/L AH ADM SS Monocyte distribution width Auto (Bld) [Entitic vol] Not Performed 1 *NA* (07/16/21 11:13 AM) Invalid Interpretation Code 0.00 - 20.00 AO Hematology S Comment on above: Result Comment: MDW testing performed only on adult ER patients between the ages of 18-89 years. Thyroglobulin Ab IA Qn unit/mL Invalid Interpretation Code 15 - 60 unit/mL AH ADM SS TPO Ab IA Qn 50 unit/mL Invalid Interpretation Code 0 - 60 unit/mL AH ADM SS LABORATORYOrdered By: Stefania Crowder on 07-16-2021 HbA1c (Bld) [Mass fraction] 5.6 % Invalid Interpretation Code 4.3 - 6.4 % AO ADM SS LIPIDon 07-16-2021 Cholesterol [Mass/Vol] 225 mg/dL High 0-200 [facility] ([place]) Comment on above: Result Comment: Chol esterol Reference Interval: Less than 200 Desirable 200-239 Borderline high risk 240 and above High risk Performed By: #### G FR, VIDH, CMP, IBC, A1C, CRP, FERR, FE, TSH, FT4, FT3, LIPID #### [place] [id number] #### THYAB, CORTA, DHEAS, INSLN, GINO #### [address] [address] Cholesterol in HDL [Mass/Vol] 73 mg/dL High 40-60 [facility] ([place]) Comment on above: Performed By: #### G FR, VIDH, CMP, IBC, A1C, CRP, FERR, FE, TSH, FT4, FT3, LIPID #### [address] [id number] #### THYAB, CORTA, DHEAS, INSLN, GINO #### [address] [address] Cholesterol in LDL [Mass/Vol] 144 mg/dL High 0-130 [facility] ([place]) Comment on above: Performed By: #### G FR, VIDH, CMP, IBC, A1C, CRP, FERR, FE, TSH, FT4, FT3, LIPID #### [address] [id number] #### THYAB, CORTA, DHEAS, INSLN, GINO #### [address] [address] Triglyceride [Mass/Vol] 39 mg/dL Normal 0-150 [facility] ([place]) Comment on above: Result Comment: Trig lyceride Reference Interval: Less than 150 Normal 150-199 Borderline high risk 200-499 High risk 500 or higher Very high risk Performed By: #### G FR, VIDH, CMP, IBC, A1C, CRP, FERR, FE, TSH, FT4, FT3, LIPID #### [place] [id number] #### THYAB, CORTA, DHEAS, INSLN, GINO #### [place] [address] THYABon 07-16-2021 anti-Thyroid Peroxidase 50 units/ml Normal 0-60 [facility] ([place]) Comment on above: Result Comment: No te - New Reference Range in effect 19 Performed By: #### G FR, VIDH, CMP, IBC, A1C, CRP, FERR, FE, TSH, FT4, FT3, LIPID #### [place] [id number] #### THYAB, CORTA, DHEAS, INSLN, GINO #### [place] [id number] Thyroglobulin Ab Qn [IU]/mL Normal 15-60 [facility] ([place]) Comment on above: Result Comment: No te - New Reference Range in effect 19 Performed By: #### G FR, VIDH, CMP, IBC, A1C, CRP, FERR, FE, TSH, FT4, FT3, LIPID #### [place] [id number] #### THYAB, CORTA, DHEAS, INSLN, GINO #### [place] [address] TSHon 07-16-2021 TSH Qn 1.17 m[IU]/L Normal 0.36-3.74 [facility] ([place]) Comment on above: Performed By: #### G FR, VIDH, CMP, IBC, A1C, CRP, FERR, FE, TSH, FT4, FT3, LIPID #### [address] [address] #### THYAB, CORTA, DHEAS, INSLN, GINO #### [address] [address] VIDHon 07-16-2021 Vit. D 25-Hydroxy 65.4 ng/mL Normal [facility] ([place]) Comment on above: Result Comment: Inte rpretive Values Based on Total 25(OH) Vitamin D: Deficient <20 ng/mL Insufficient 20 - <30 ng/mL Sufficient 30-100 ng/mL Performed By: #### G FR, VIDH, CMP, IBC, A1C, CRP, FERR, FE, TSH, FT4, FT3, LIPID #### [address] [address] #### THYAB, CORTA, DHEAS, INSLN, GINO #### [address] [address] Absolute lymphocyte counton 05-19-2021 Lymphocytes Auto (Unsp spec) [#/Vol] 1.05 10*3/uL 0.83-4.51 [facility] Work Phone: Basophil percentageon 2021 Basophils/100 WBC (Bld) 0.9 % 0-1 [facility] Work Phone: Eosinophils/100 WBC (Bld) 2.0 % 0-5 [facility] Work Phone: Neutrophils (Bld) [#/Vol] 2.0 10*3/uL 2.0-7.7 [facility] Work Phone: Neutrophils/100 WBC (Bld) 59.5 % 47-70 [facility] Work Phone: WBC (Bld) [#/Vol] 3.4 10*3/uL 4.4-11.0 [facility] Work Phone: Blood erythrocytes count (nu mber/volume)on 05-19-2021 RBC (Bld) [#/Vol] 3.79 10*6/uL 4.2-5.4 [facility] Work Phone: Blood hemoglobin measurement (mass/volume)on 05-19-2021 Hemoglobin (Bld) [Mass/Vol] 11.6 g/dL 12.0-15.0 [facility] Work Phone: Blood lymphocytes/100 leukoc yteson 05-19-2021 Lymphocytes/100 WBC (Bld) 30.6 % 19-41 [facility] Work Phone: [phone] Blood monocytes/100 leukocyt eson 05-19-2021 Monocytes/100 WBC (Bld) 6.7 % 0-10 [facility] Work Phone: [phone] Blood platelet mean volumeon 05-19-2021 Platelet mean volume (Bld) [Entitic vol] 11.2 fL 6.2-12.0 [facility] Work Phone: Determination of erythrocyte mean corpuscular volume (MCV)on 05-19-2021 MCV (RBC) [Entitic vol] 95.5 fL 81-99 [facility] Work Phone: Hematocrit Auto (Bld) [Volum e fraction]on 05-19-2021 Hematocrit (Bld) [Volume fraction] 36.2 % 37-47 [facility] Work Phone: Iron measurement (mass/mass) on 05-19-2021 Iron (Unsp spec) [Mass/Mass] 38 ug/dL 50-170 [facility] Work Phone: Laboratory - Hematology and Cell countson 05-19-2021 Erythrocyte distribution width (RBC) [Entitic vol] 46.5 fL 35.1-43.9 [facility] Work Phone: [phone] Erythrocyte distribution width (RBC) [Ratio] 13.1 % 11.6-14.6 [facility] Work Phone: [phone] Immature granulocytes/100 WBC (Bld) 0.300 % 0.0-0.9 [facility] Work Phone: Comment on above: IG% - Immature Granu locytes (promyelocytes, myelocytes and metamyelocytes) > 1% indicates that a LEFT SHIFT is Present. MCH (RBC) [Entitic mass] 30.6 pg 27.0-32.0 [facility] Work Phone: [phone] Nucleated RBC/100 WBC (Bld) [Ratio] 0 % 0-5 [facility] Work Phone: [phone] MCHC Auto (RBC) [Mass/Vol]on 05-19-2021 MCHC (RBC) [Mass/Vol] 32.0 g/dL 32-36 [facility] Work Phone: [phone] Platelets bldon 05-19-2021 Platelets (Bld) [#/Vol] 148 10*3/uL 150-450 [facility] Work Phone: [phone] Basophil percentageon 2021 WBC (Bld) [#/Vol] 4.7 10*3/uL 4.4-11.0 [facility] Work Phone: [phone] Blood erythrocytes count (nu mber/volume)on 04-20-2021 RBC (Bld) [#/Vol] 3.10 10*6/uL 4.2-5.4 [facility] Work Phone: [phone] Blood hemoglobin measurement (mass/volume)on 04-20-2021 Hemoglobin (Bld) [Mass/Vol] 10.1 g/dL 12.0-15.0 [facility] Work Phone: [phone] Blood platelet mean volumeon 04-20-2021 Platelet mean volume (Bld) [Entitic vol] 10.5 fL 6.2-12.0 [facility] Work Phone: [phone] Determination of erythrocyte mean corpuscular volume (MCV)on 04-20-2021 MCV (RBC) [Entitic vol] 97.1 fL 81-99 [facility] Work Phone: [phone] Hematocrit Auto (Bld) [Volum e fraction]on 04-20-2021 Hematocrit (Bld) [Volume fraction] 30.1 % 37-47 [facility] Work Phone: [phone] Laboratory - Hematology and Cell countson 04-20-2021 Erythrocyte distribution width (RBC) [Entitic vol] 45.8 fL 35.1-43.9 [facility] Work Phone: [phone] Erythrocyte distribution width (RBC) [Ratio] 12.9 % 11.6-14.6 [facility] Work Phone: [phone] MCH (RBC) [Entitic mass] 32.6 pg 27.0-32.0 [facility] Work Phone: [phone] MCHC Auto (RBC) [Mass/Vol]on 04-20-2021 MCHC (RBC) [Mass/Vol] 33.6 g/dL 32-36 [facility] Work Phone: [phone] Platelets bldon 04-20-2021 Platelets (Bld) [#/Vol] 191 10*3/uL 150-450 [facility] Work Phone: [phone] Basophil percentageon 2021 Chloride [Moles/Vol] 110 mmol/L 98-107 [facility] Work Phone: [phone] Glucose [Mass/Vol] 114 mg/dL 74-106 [facility] Work Phone: [phone] Comment on above: Fasting Glucose resu lt from 100 to 125 mg/dL suggests IMPAIRED HOMEOSTASIS per A.D.A. criteria. Potassium [Moles/Vol] 4.1 mmol/L 3.5-5.1 [facility] Work Phone: [phone] Sodium [Moles/Vol] 140 mmol/L 136-145 [facility] Work Phone: [phone] WBC (Bld) [#/Vol] 7.1 10*3/uL 4.4-11.0 [facility] Work Phone: [phone] Blood erythrocytes count (nu mber/volume)on 04-16-2021 RBC (Bld) [#/Vol] 2.70 10*6/uL 4.2-5.4 [facility] Work Phone: [phone] Blood hemoglobin measurement (mass/volume)on 04-16-2021 Hemoglobin (Bld) [Mass/Vol] 8.5 g/dL 12.0-15.0 [facility] Work Phone: [phone] Blood platelet mean volumeon 04-16-2021 Platelet mean volume (Bld) [Entitic vol] 11.0 fL 6.2-12.0 [facility] Work Phone: [phone] Determination of erythrocyte mean corpuscular volume (MCV)on 04-16-2021 MCV (RBC) [Entitic vol] 95.9 fL 81-99 [facility] Work Phone: [phone] Hematocrit Auto (Bld) [Volum e fraction]on 04-16-2021 Hematocrit (Bld) [Volume fraction] 25.9 % 37-47 [facility] Work Phone: [phone] Laboratory - Chemistry and C hemistry - challengeon 04-16-2021 CO2 [Moles/Vol] 28.0 mmol/L 21.0-32.0 [facility] Work Phone: [phone] Urea nitrogen/Creatinine [Mass ratio] 16.8 mg/mg 10-20 [facility] Work Phone: [phone] Laboratory - Hematology and Cell countson 04-16-2021 Erythrocyte distribution width (RBC) [Entitic vol] 43.3 fL 35.1-43.9 [facility] Work Phone: [phone] Erythrocyte distribution width (RBC) [Ratio] 12.4 % 11.6-14.6 [facility] Work Phone: [phone] MCH (RBC) [Entitic mass] 31.5 pg 27.0-32.0 [facility] Work Phone: [phone] MCHC Auto (RBC) [Mass/Vol]on 04-16-2021 MCHC (RBC) [Mass/Vol] 32.8 g/dL 32-36 [facility] Work Phone: [phone] Panel Informationon 04-16 Estimated Creatinine Clearance Calc 55.07 ml/min [facility] Work Phone: [phone] Estimated GFR (MDRD) Amer 90 mL/min >60 [facility] Work Phone: [phone] Comment on above: GFR Calc Estimated GFR (MDRD) Non-Af Amer 75 mL/min >60 [facility] Work Phone: Comment on above: Non- GFR Calc Platelets bldon 04-16-2021 Platelets (Bld) [#/Vol] 139 10*3/uL 150-450 [facility] Work Phone: Serum or plasma calcium elijah urement (mass/volume)on 04-16-2021 Calcium [Mass/Vol] 7.6 mg/dL 8.5-10.1 [facility] Work Phone: Serum or plasma creatinine m easurement (mass/volume)on 04-16-2021 Creatinine [Mass/Vol] 0.83 mg/dL 0.55-1.02 [facility] Work Phone: Comment on above: The validity of the calculated GFR & GFRAA in patients over 70 years has not been determined. Clinical correlation is essential. Serum or plasma transthyreti n measurement (mass/volume)on 04-16-2021 Prealbumin [Mass/Vol] 15.7 mg/dL 20.0-40.0 [facility] Work Phone: Serum or plasma urea nitroge n measurement (mass/volume)on 04-16-2021 Urea nitrogen [Mass/Vol] 14 mg/dL 7-18 [facility] Work Phone: Thin prep Papanicolaou smear with manual screeningon 04-16-2021 Thin prep Papanicolaou smear with manual screening 2 5-15 [facility] Work Phone: Glucose Glucometer (dC) [M ass/Vol]on 04-15-2021 Glucose [Mass/Vol] 71 mg/dL 70-110 [facility] Work Phone: Comment on above: MANAGEMENT OF PATIEN T CARE PER NURSING PROTOCOL Laboratory - Chemistry and C hemistry - challengeon 04-15-2021 Magnesium [Mass/Vol] 2.1 mg/dL 1.6-2.6 [facility] Work Phone: No Panel Informationon 04-14 SARS-CoV-2 Antigen (Rapid) [facility] Work Phone: CBC W/DIFFon 10-08-2020 BASO ABS 0.00 K/CU MM Normal 0-0.2 [facility] Comment on above: Performed By: #### L 200.09860 #### [facility] [address] [place] [address] Basophils/100 WBC (Bld) 0.8 % Normal 0-2 [facility] Comment on above: Performed By: #### L 200.35305 #### [facility] [address] [place] [address] EOS ABS 0.00 K/CU MM Normal 0-0.5 [facility] Comment on above: Performed By: #### L 200.05369 #### [facility] [address] [place] [address] Eosinophils/100 WBC (Bld) 0.8 % Normal 0-5 [facility] Comment on above: Performed By: #### L 200.44845 #### [facility] [address] [place] [address] Erythrocyte distribution width (RBC) [Ratio] 12.1 % Normal 11-14.5 [facility] Comment on above: Performed By: #### L 200.54012 #### [facility] [address] [place] [address] Hematocrit (Bld) [Volume fraction] 41.4 % Normal 35.0-47.0 [facility] Comment on above: Performed By: #### L 200.64105 #### [facility] [address] [place], [place] [id number] Hemoglobin (Bld) [Mass/Vol] 13.5 g/dL Normal 11.5-15.5 [facility] Comment on above: Performed By: #### L 200.36710 #### [facility] [address] [place] [address] IMMATR GRAN ABS 0.00 K/CU MM Normal Less than 2 [facility] Comment on above: Performed By: #### L 200.47243 #### [facility] [address] [place] [address] IMMATURE GRAN % 0.3 % Normal Less than 2 [facility] Comment on above: Performed By: #### L 200.39086 #### [facility] [address] [place] [address] LYMPH ABS 0.80 K/CU MM Low 0.9-4.4 [facility] Comment on above: Performed By: #### L 200.15348 #### [facility] [address] [place] [address] Lymphocytes/100 WBC (Bld) 20.2 % Normal 20-40 [facility] Comment on above: Performed By: #### L 200.02551 #### [facility] [address] [place] [address] MCHC (RBC) [Mass/Vol] 32.6 g/dL Normal 32.0-36.0 [facility] Comment on above: Performed By: #### L 200.92372 #### [facility] [address] [place] [address] MCV (RBC) [Entitic vol] 95.0 fL Normal 80.0-99.0 [facility] Comment on above: Performed By: #### L 200.81636 #### [facility] [address] [place] [address] MONO ABS 0.20 K/CU MM Normal 0.1-1.1 [facility] Comment on above: Performed By: #### L 200.47392 #### [facility] [address] [place] [address] Monocytes/100 WBC (Bld) 4.9 % Normal 2-10 [facility] Comment on above: Performed By: #### L 200.97510 #### [facility] [address] [place] [address] NEUTROPHIL ABS 2.70 K/CU MM Normal 2.0-8.3 [facility] Comment on above: Performed By: #### L 200.70853 #### [facility] [address] [place] [address] Neutrophils/100 WBC (Bld) 73.0 % Normal 45-75 [facility] Comment on above: Performed By: #### L 200.00916 #### [facility] [address] [place] [address] Nucleated RBC/100 WBC (Bld) [Ratio] 0.0 % Normal Less than 1 [facility] Comment on above: Performed By: #### L 200.04649 #### [facility] [address] [place] [address] Platelet mean volume (Bld) [Entitic vol] 11.1 fL Normal 9.4-12.4 [facility] Comment on above: Performed By: #### L 200.18230 #### [facility] [address] [place] [address] PLT 197 K/CU MM Normal 150-450 [facility] Comment on above: Performed By: #### L 200.53876 #### [facility] [address] [place] [address] RBC 4.36 M/CU MM Normal 3.90-5.30 [facility] Comment on above: Performed By: #### L 200.58790 #### [facility] [address] [place] [address] WBC 3.7 K/CUMM Low 4.5-11.0 [facility] Comment on above: Performed By: #### L 200.53656 #### [facility] [address] [place] [address] [facility] Albumin [Mass/Vol] 3.9 g/dL Normal 3.2-5.0 [facility] Comment on above: Performed By: #### L 500.56678, L500.19460, L500.27424, L500.91649 #### [facility] [address] [place] [address] Albumin/Globulin [Mass ratio] 1.3 {ratio} Normal 0.8-2.0 [facility] Comment on above: Performed By: #### L 500.05139, L500.72944, L500.10406, L500.29175 #### [facility] [address] [place] [address] ALK PHOS 94 U/L Normal 45-117 [facility] Comment on above: Performed By: #### L 500.54594, L500.04948, L500.78776, L500.50915 #### [facility] [address] [place] [address] ALT [Catalytic activity/Vol] 21 U/L Normal 13-61 [facility] Comment on above: Result Comment: RESU LTS MAY BE FALSELY DEPRESSED AFTER THE ADMINISTRATION OF SULFASALAZINE AND/OR SULFAPYRIDINE. Performed By: #### L 500.75088, L500.15971, L500.07162, L500.05020 #### [facility] [address] [place], [place] [id number] Anion gap [Moles/Vol] 4 mmol/L Low 5-16 [facility] Comment on above: Performed By: #### L 500.79404, L500.00830, L500.69793, L500.50513 #### [facility] [address] [place] [address] AST [Catalytic activity/Vol] 28 U/L Normal 8-34 [facility] Comment on above: Result Comment: RESU LTS MAY BE FALSELY DEPRESSED AFTER THE ADMINISTRATION OF SULFASALAZINE AND/OR SULFAPYRIDINE. Performed By: #### L 500.84660, L500.13408, L500.90349, L500.37426 #### [facility] [address] [place] [address] BILI TOTAL 0.50 MG/DL Normal 0.2-1.0 [facility] Comment on above: Performed By: #### L 500.33137, L500.17157, L500.94937, L500.90945 #### [facility] [address] [place] [address] Calcium [Mass/Vol] 9.8 mg/dL Normal 8.5-10.5 [facility] Comment on above: Result Comment: NOTE NEW NORMAL RANGE DUE TO REAGENT CHANGE Performed By: #### L 500.90682, L500.34254, L500.52167, L500.60102 #### [facility] [address] [place] [address] Chloride [Moles/Vol] 109 mmol/L High 98-107 [facility] Comment on above: Performed By: #### L 500.36665, L500.44835, L500.69540, L500.91220 #### [facility] [address] [place] [address] CO2 [Moles/Vol] 28.0 mmol/L Normal 21-32 [facility] Comment on above: Performed By: #### L 500.91137, L500.86401, L500.96480, L500.72749 #### [facility] [address] [place] [address] Creatinine [Mass/Vol] 0.99 mg/dL High 0.510-0.950 [facility] Comment on above: Result Comment: Josiane ents receiving either N-Acetylcysteine (NAC) or Metamizole prior to venipuncture, may have falsely depressed results. Performed By: #### L 500.59172, L500.42603, L500.80363, L500.68049 #### [facility] [address] [place] [address] Globulin (S) [Mass/Vol] 2.9 g/dL Normal 2.2-4.2 [facility] Comment on above: Performed By: #### L 500.85721, L500.58700, L500.44689, L500.15957 #### [facility] [address] [place] [address] Glucose [Mass/Vol] 105 mg/dL High 70-100 [facility] Comment on above: Result Comment: 70-1 00- Normal Fasting; 100-125 Impaired Fasting; greater than 126 on more than one result- Diabetes. ADA guidelines. Results may be falsely elevated after the administration of Sulfapyridine. Results may be falsely depressed after the administration of Sulfasalazine. Performed By: #### L 500.69505, L500.87734, L500.83949, L500.34720 #### [facility] [address] [place] [address] Potassium [Moles/Vol] 4.4 mmol/L Normal 3.5-5.1 [facility] Comment on above: Performed By: #### L 500.35432, L500.86052, L500.62115, L500.68101 #### [facility] [address] [place] [address] Protein [Mass/Vol] 6.8 g/dL Normal 6.0-8.5 [facility] Comment on above: Performed By: #### L 500.12491, L500.51657, L500.82069, L500.28612 #### [facility] [address] [place], [place] [address] Sodium [Moles/Vol] 141 mmol/L Normal 136-145 [facility] Comment on above: Performed By: #### L 500.72512, L500.11363, L500.02006, L500.32949 #### [facility] [address] [place] [address] Urea nitrogen [Mass/Vol] 11 mg/dL Normal 7-26 [facility] Comment on above: Performed By: #### L 500.59513, L500.15956, L500.51058, L500.35427 #### [facility] [address] [place] [address] Urea nitrogen/Creatinine [Mass ratio] 11 mg/mg Low 15-24 [facility] Comment on above: Performed By: #### L 500.83236, L500.52426, L500.66132, L500.49909 #### [facility] [address] [place] [address] GFR ESTon 10-08-2020 IF AMER Greater than 60 Normal [facility] Comment on above: Performed By: #### L 500.14621, L500.13272, L500.54646, L500.70406 #### [facility] [address] [place], [place] [address] IF non-AFR AMER 58 Normal [facility] Comment on above: Performed By: #### L 500.82937, L500.21004, L500.25584, L500.38863 #### [facility] [address] [place] [address] LIPIDon 10-08-2020 CHOL 232 MG/dL High 0-199 [facility] Comment on above: Performed By: #### L 500.94331, L500.55700, L500.89519, L500.06945 #### [facility] [address] [place] [address] Cholesterol in HDL [Mass/Vol] 77 mg/dL Normal GREATER THAN 40 [facility] Comment on above: Result Comment: Josiane ents receiving Metamizole prior to venipuncture, may have falsely depressed results. Performed By: #### L 500.00910, L500.97048, L500.59677, L500.53367 #### [facility] [address] [place] [address] Cholesterol in LDL [Mass/Vol] 143 mg/dL Normal [facility] Comment on above: Result Comment: ___C HOLESTEROL/HDL RATIO RISK___ CHD RISK = Total CHOL LDL HDL (CHOL/HDL) Recommended <200 <130 >40 <3.4 Borderline 200-239 130-159 3.4-4.99 High >240 >160 >5.0 Performed By: #### L 500.60093, L500.98125, L500.29462, L500.04951 #### [facility] [place] [address] Triglyceride [Mass/Vol] 62 mg/dL Normal 30-149 [facility] Comment on above: Result Comment: Josiane ents receiving either N-Acetylcysteine (NAC) or Metamizole prior to venipuncture, may have falsely depressed results. Performed By: #### L 500.85118, L500.76113, L500.40362, L500.58612 #### [facility] [address] [place] [address] TSHon 10-08-2020 TSH 1.519 UIU/ML Normal 0.358-3.740 [facility] Comment on above: Result Comment: 3rd generation ultra sensitive TSH Performed By: #### L 500.46289, L500.26888, L500.26613, L500.48598 #### [facility] [address] [place] [address] MG Breast Tomosynthesis Diag nostic Righton 12-16-2017 MG Breast Tomosynthesis Diagnostic Right Patient Name: MARK ANDERSON Mammography Exam Date/Time 12/16/2017 08:37:36 EDT Exam MG Breast Tomosynthesis Uni Ordering Physician Tracy ULLOA VICTORIA Accession Number [id number] CPT4 Codes 70410 (MG Breast Tomosynthesis Right), 69555 (MG MAMMO 2D DIAGNOSTIC) Reason For Exam abnormal mammogram Report PATIENT HISTORY: Family history of breast cancer at age 50 or over in maternal grandmother, breast cancer at age 50 or over in paternal grandmother. US BX Breast 1st Lesion Image RT of the right breast, November 11, 2017. Took hormonal contraceptives for 5 years. Patient is a former smoker. Patient's BMI is 23.6. TIME SINCE LAST MAMMOGRAM: Last mammogram was performed 2 months ago. REASON FOR EXAM: addl evaluation requested from abnormal screening. PROCEDURE: MG BREAST TOMOSYNTHESIS RIGHT: DECEMBER 16, 2017 - 2D/3D Procedure 3D views: Spot compression CC, spot compression MLO, ML, CCRL, and CCRM view(s) were taken of the right breast. 2D views: Spot compression CC, spot compression MLO, ML, CCRL, and CCRM view(s) were taken of the right breast. Prior study comparison: October 14, 2017, bilateral screening mammogram, performed at [facility]. August 30, 2008, bilateral screening mammogram, performed at [facility]. TISSUE DENSITY: There are scattered fibroglandular densities. . FINDINGS: The patient is a 57-year-old who imaging in an outside institution on 10/14/2017 which demonstrated a 4 mm nodule in the middle third of the superior right breast. On 10/19/2017 the patient underwent ultrasound which demonstrated a small hypoechoic nodule described at the 11:00 position 4 cm from the nipple. Biopsy was recommended. At the time of biopsy lesion could not be reproduced and biopsy was canceled. The patient presents today to be reevaluated. A diagnostic mammogram demonstrates a vague density in the middle third of the right breast in the CC view without correlate in an orthogonal view. Rolled views were performed which failed to demonstrate a persisting asymmetry. No discrete mass or parenchymal distortion is identified. As a precaution ultrasound was performed. Targeted ultrasound was performed at the 11:00 position. No solid or cystic masses are identified. The background echogenicity is homogeneous. IMPRESSION: Asymmetry described on a mammogram from an outside institution was felt to represent overlapping tissue. No persisting mass asymmetry or parenchymal distortion is appreciated and there is no sonographic correlate. The patient may resume routine screening in one year. Markings on images: BB's = Nipples; skin lesions Open shoalwater = Palpable Line = Scar US BREAST LIMITED RIGHT: DECEMBER 16, 2017 - Standard views. 2D digital mammography and tomosynthesis imaging were performed and reviewed with CAD. ASSESSMENT: Category 1 Negative (Overall) RECOMMENDATION: Routine screening mammogram of both breasts in 1 year. . Report Dictated on Final Signed Date and Time: 12/16/2017 9:57 am Signed by: MD PIMENTEL LAUREN [facility] US Breast Limited Righton US Breast Limited Right Patient Name: MARK ANDERSON Ultrasound Exam Date/Time 12/16/2017 09:43:20 EDT Exam US Breast Limited Right Ordering Physician Tracy ULLOA VICTORIA Accession Number [id number] CPT4 Codes 85127 () Reason For Exam abnormal mammogram Report PATIENT HISTORY: Family history of breast cancer at age 50 or over in maternal grandmother, breast cancer at age 50 or over in paternal grandmother. US BX Breast 1st Lesion Image RT of the right breast, November 11, 2017. Took hormonal contraceptives for 5 years. Patient is a former smoker. Patient's BMI is 23.6. TIME SINCE LAST MAMMOGRAM: Last mammogram was performed 2 months ago. REASON FOR EXAM: addl evaluation requested from abnormal screening. PROCEDURE: MG BREAST TOMOSYNTHESIS RIGHT: DECEMBER 16, 2017 - 2D/3D Procedure 3D views: Spot compression CC, spot compression MLO, ML, CCRL, and CCRM view(s) were taken of the right breast. 2D views: Spot compression CC, spot compression MLO, ML, CCRL, and CCRM view(s) were taken of the right breast. Prior study comparison: October 14, 2017, bilateral screening mammogram, performed at [facility]. August 30, 2008, bilateral screening mammogram, performed at [facility]. TISSUE DENSITY: There are scattered fibroglandular densities. . FINDINGS: The patient is a 57-year-old who imaging in an outside institution on 10/14/2017 which demonstrated a 4 mm nodule in the middle third of the superior right breast. On 10/19/2017 the patient underwent ultrasound which demonstrated a small hypoechoic nodule described at the 11:00 position 4 cm from the nipple. Biopsy was recommended. At the time of biopsy lesion could not be reproduced and biopsy was canceled. The patient presents today to be reevaluated. A diagnostic mammogram demonstrates a vague density in the middle third of the right breast in the CC view without correlate in an orthogonal view. Rolled views were performed which failed to demonstrate a persisting asymmetry. No discrete mass or parenchymal distortion is identified. As a precaution ultrasound was performed. Targeted ultrasound was performed at the 11:00 position. No solid or cystic masses are identified. The background echogenicity is homogeneous. IMPRESSION: Asymmetry described on a mammogram from an outside institution was felt to represent overlapping tissue. No persisting mass asymmetry or parenchymal distortion is appreciated and there is no sonographic correlate. The patient may resume routine screening in one year. Markings on images: BB's = Nipples; skin lesions Open [place] = Palpable Line = Scar US BREAST LIMITED RIGHT: DECEMBER 16, 2017 - Standard views. 2D digital mammography and tomosynthesis imaging were performed and reviewed with CAD. ASSESSMENT: Category 1 Negative (Overall) RECOMMENDATION: Routine screening mammogram of both breasts in 1 year. . Report Dictated on Final Signed Date and Time: 12/16/2017 9:57 am Signed by: MD MARGARITO, JOSIAS [facility] Culture, urine Bacteria identified Cx Nom (U) Positive [facility] Work Phone: Vital Signs Date Time Vital Sign Value Performing Clinician Facility 09-04-2024 13:49-0400 Body height 152.[address] Violetta Mcfarlane MD Work Phone: [facility] 09-04-2024 13:49-0400 Body mass index (BMI) [Ratio] 25.2 kg/m2 Dr. Violetta Mcfarlane MD Work Phone: [facility] 09-04-2024 13:49-0400 Body temperature 97.4 [degF] Dr. Violetta Mcfarlane MD Work Phone: [facility] 09-04-2024 13:49-0400 Body weight 58.[address] Violetta Mcfarlane MD Work Phone: [facility] 09-04-2024 13:49-0400 Diastolic blood pressure 60 mm[Hg] Dr. Violetta Mcfarlane MD Work Phone: [facility] 09-04-2024 13:49-0400 Heart rate 95 /min Dr. Violetta Mcfarlane MD Work Phone: [facility] 09-04-2024 13:49-0400 Respiratory rate 16 /min Dr. Violetta Mcfarlane MD Work Phone: [facility] 09-04-2024 13:49-0400 SaO2% (BldA) [Mass fraction] 98 % Dr. Violetta Mcfarlane MD Work Phone: [facility] 09-04-2024 13:49-0400 Systolic blood pressure 98 mm[Hg] Dr. Violetta Mcfarlane MD Work Phone: [facility] 07-13-2024 15:17-0400 Body height 152.[address] Violetta Mcfarlane MD Work Phone: [facility] 07-13-2024 15:17-0400 Body mass index (BMI) [Ratio] 25.2 kg/m2 Dr. Violetta Mcfarlane MD Work Phone: [facility] 07-13-2024 15:17-0400 Body temperature 97.7 [degF] Dr. Violetta Mcfarlane MD Work Phone: [facility] 07-13-2024 15:17-0400 Body weight 58.[address] Violetta Mcfarlane MD Work Phone: [facility] 07-13-2024 15:17-0400 Diastolic blood pressure 71 mm[Hg] Dr. Violetta Mcfarlane MD Work Phone: [facility] 07-13-2024 15:17-0400 Heart rate 75 /min Dr. Violetta Mcfarlane MD Work Phone: [facility] 07-13-2024 15:17-0400 Respiratory rate 16 /min Dr. Violetta Mcfarlane MD Work Phone: [facility] 07-13-2024 15:17-0400 SaO2% (BldA) [Mass fraction] 95 % Dr. Violetta Mcfarlane MD Work Phone: [facility] 07-13-2024 15:17-0400 Systolic blood pressure 102 mm[Hg] Dr. Violetta Mcfarlane MD Work Phone: [facility] 10-18-2022 11:17-0400 Body height 154.[address] Violetta Mcfarlane Work Phone: [facility] 10-18-2022 11:17-0400 Body mass index (BMI) [Ratio] 27.1 kg/m2 Dr. Violetta Mcfarlane Work Phone: [facility] 10-18-2022 11:17-0400 Body temperature 95.4 [degF] Dr. Violetta Mcfarlane Work Phone: [facility] 10-18-2022 11:17-0400 Body weight 65.[address] Violetta Mcfarlane Work Phone: [facility] 10-18-2022 11:17-0400 Diastolic blood pressure 76 mm[Hg] Dr. Violetta Mcfarlane Work Phone: [facility] 10-18-2022 11:17-0400 Heart rate 85 /min Dr. Violetta Mcfarlane Work Phone: [facility] 10-18-2022 11:17-0400 Respiratory rate 18 /min Dr. Violetta Mcfarlane Work Phone: [facility] 10-18-2022 11:17-0400 SaO2% (BldA) [Mass fraction] 98 % Dr. Violetta Mcfarlane Work Phone: [facility] 10-18-2022 11:17-0400 Systolic blood pressure 106 mm[Hg] Dr. Violetta Mcfarlane Work Phone: [facility] 09-27-2022 08:44-0400 Body height 154.[address] Violetta Mcfarlane Work Phone: [facility] 09-27-2022 08:44-0400 Body mass index (BMI) [Ratio] 27.6 kg/m2 Dr. Violetta Mcfarlane Work Phone: [facility] 09-27-2022 08:44-0400 Body temperature 96.3 [degF] Dr. Violetta Mcfarlane Work Phone: [facility] 09-27-2022 08:44-0400 Body weight 66.[address] Violetta Mcfarlane Work Phone: [facility] 09-27-2022 08:44-0400 Diastolic blood pressure 72 mm[Hg] Dr. Violetta Mcfarlane Work Phone: [facility] 09-27-2022 08:44-0400 Heart rate 94 /min Dr. Violetta Mcfarlane Work Phone: [facility] 09-27-2022 08:44-0400 Respiratory rate 16 /min Dr. Violetta Mcfarlane Work Phone: [facility] 09-27-2022 08:44-0400 SaO2% (BldA) [Mass fraction] 97 % Dr. Violetta Mcfarlane Work Phone: [facility] 09-27-2022 08:44-0400 Systolic blood pressure 112 mm[Hg] Dr. Violetta Mcfarlane Work Phone: [facility] 06-25-2022 11:27-0400 Body height 154.[address] Violetta Mcfarlane Work Phone: [facility] 06-25-2022 11:27-0400 Body mass index (BMI) [Ratio] 29.5 kg/m2 Dr. Violetta Mcfarlane Work Phone: [facility] 06-25-2022 11:27-0400 Body weight 70.[address] Violetta Mcfarlane Work Phone: [facility] 06-25-2022 11:27-0400 Diastolic blood pressure 70 mm[Hg] Dr. Violetta Mcfarlane Work Phone: [facility] 06-25-2022 11:27-0400 Heart rate 83 /min Dr. Violetta Mcfarlane Work Phone: [facility] 06-25-2022 11:27-0400 Respiratory rate 16 /min Dr. Violetta Mcfarlane Work Phone: [facility] 06-25-2022 11:27-0400 Systolic blood pressure 101 mm[Hg] Dr. Violetta Mcfarlane Work Phone: [facility] 06-15-2022 13:38-0400 Body mass index (BMI) [Ratio] 30.6 kg/m2 Dr. Violetta Mcfarlane Work Phone: [facility] 06-15-2022 13:38-0400 Body temperature 95.7 [degF] Dr. Violetta Mcfarlane Work Phone: [facility] 06-15-2022 13:38-0400 Body weight 73.[address] Violetta Mcfarlane Work Phone: [facility] 06-15-2022 13:38-0400 Diastolic blood pressure 90 mm[Hg] Dr. Violetta Mcfarlane Work Phone: [facility] 06-15-2022 13:38-0400 Heart rate 96 /min Dr. Violetta Mcfarlane Work Phone: [facility] 06-15-2022 13:38-0400 Respiratory rate 20 /min Dr. Violetta Mcfarlane Work Phone: [facility] 06-15-2022 13:38-0400 SaO2% (BldA) [Mass fraction] 97 % Dr. Violetta Mcfarlane Work Phone: [facility] 06-15-2022 13:38-0400 Systolic blood pressure 124 mm[Hg] Dr. Violetta Mcfarlane Work Phone: [facility] 06-05-2022 14:53-0400 Body temperature 98 [degF] Dr. Ritesh Antonio Work Phone: [facility] 06-05-2022 14:53-0400 Diastolic blood pressure 66 mm[Hg] Dr. Ritesh Antonio Work Phone: [facility] 06-05-2022 14:53-0400 Heart rate 72 /min Dr. Ritesh Antonio Work Phone: [facility] 06-05-2022 14:53-0400 Respiratory rate 12 /min Dr. Ritesh Antonio Work Phone: [facility] 06-05-2022 14:53-0400 SaO2% (BldA) [Mass fraction] 97 % Dr. Ritesh Antonio Work Phone: [facility] 06-05-2022 14:53-0400 Systolic blood pressure 112 mm[Hg] Dr. Ritesh Antonio Work Phone: [facility] 06-02-2022 15:34-0400 Body height 154.[address] Ritesh Antonio Work Phone: [facility] 06-02-2022 15:34-0400 Body mass index (BMI) [Ratio] 30.4 kg/m2 Dr. Ritesh Antonio Work Phone: [facility] 06-02-2022 15:34-0400 Body weight 73.[address] Ritesh Antonio Work Phone: [facility] 06-02-2022 14:21-0400 Diastolic blood pressure 53 mm[Hg] Dr. Ritesh Antonio Work Phone: [facility] 06-02-2022 14:21-0400 Systolic blood pressure 104 mm[Hg] Dr. Ritesh Antonio Work Phone: [facility] 06-02-2022 13:21-0400 Body temperature 98 [degF] Dr. Ritesh Antonio Work Phone: [facility] 06-02-2022 13:21-0400 Heart rate 98 /min Dr. Ritesh Antonio Work Phone: [facility] 06-02-2022 13:21-0400 Respiratory rate 14 /min Dr. Ritesh Antonio Work Phone: [facility] 06-02-2022 13:21-0400 SaO2% (BldA) [Mass fraction] 98 % Dr. Ritesh Antonio Work Phone: [facility] 06-02-2022 10:23-0400 Body height 154.[address] Ritesh Antonio Work Phone: [facility] 06-02-2022 10:23-0400 Body mass index (BMI) [Ratio] 30.2 kg/m2 Dr. Ritesh Antonio Work Phone: [facility] 06-02-2022 10:23-0400 Body weight 72.[address] Ritesh Antonio Work Phone: [facility] 04-19-2022 11:07-0500 Body height 154.[address] Ritesh Antonio Work Phone: [facility] 04-19-2022 11:07-0500 Body mass index (BMI) [Ratio] 31.4 kg/m2 Dr. Ritesh Antonio Work Phone: [facility] 04-19-2022 11:07-0500 Body temperature 98.4 [degF] Dr. Ritesh Antonio Work Phone: [facility] 04-19-2022 11:07-0500 Body weight 75.[address] Ritesh Antonio Work Phone: [facility] 04-19-2022 11:07-0500 Diastolic blood pressure 78 mm[Hg] Dr. Ritesh Antonio Work Phone: [facility] 04-19-2022 11:07-0500 Heart rate 83 /min Dr. Ritesh Antonio Work Phone: [facility] 04-19-2022 11:07-0500 Respiratory rate 16 /min Dr. Ritesh Antonio Work Phone: [facility] 04-19-2022 11:07-0500 SaO2% (BldA) [Mass fraction] 97 % Dr. Ritesh Antonio Work Phone: [facility] 04-19-2022 11:07-0500 Systolic blood pressure 102 mm[Hg] Dr. Ritesh Antonio Work Phone: [facility] 04-01-2022 13:03-0500 Body mass index (BMI) [Ratio] 30.9 kg/m2 Dr. Ritesh Antonio Work Phone: [facility] 04-01-2022 13:03-0500 Body weight 74.[address] Ritesh Antonio Work Phone: [facility] 04-01-2022 13:03-0500 Diastolic blood pressure 80 mm[Hg] Dr. Ritesh Antonio Work Phone: [facility] 04-01-2022 13:03-0500 Heart rate 91 /min Dr. Ritesh Antonio Work Phone: [facility] 04-01-2022 13:03-0500 Respiratory rate 18 /min Dr. Ritesh Antonio Work Phone: [facility] 04-01-2022 13:03-0500 SaO2% (BldA) [Mass fraction] 96 % Dr. Ritesh Antonio Work Phone: [facility] 04-01-2022 13:03-0500 Systolic blood pressure 119 mm[Hg] Dr. Ritesh Antonio Work Phone: [facility] 03-08-2022 10:07-0500 Body height 154.[address] Ritesh Antonio Work Phone: [facility] 03-08-2022 10:07-0500 Body mass index (BMI) [Ratio] 30.2 kg/m2 Dr. Ritesh Antonio Work Phone: [facility] 03-08-2022 10:07-0500 Body temperature 98.2 [degF] Dr. Ritesh Antonio Work Phone: [facility] 03-08-2022 10:07-0500 Body weight 72.[address] Ritesh Antonio Work Phone: [facility] 03-08-2022 10:07-0500 Diastolic blood pressure 86 mm[Hg] Dr. Ritesh Antonio Work Phone: [facility] 03-08-2022 10:07-0500 Heart rate 98 /min Dr. Ritesh Antonio Work Phone: [facility] 03-08-2022 10:07-0500 Respiratory rate 16 /min Dr. Ritesh Antonio Work Phone: [facility] 03-08-2022 10:07-0500 SaO2% (BldA) [Mass fraction] 98 % Dr. Ritesh Antonio Work Phone: [facility] 03-08-2022 10:07-0500 Systolic blood pressure 124 mm[Hg] Dr. Ritesh Antonio Work Phone: [facility] 03-05-2022 07:44-0500 Body height 154.[address] Ritesh Antonio Work Phone: [facility] Work Phone: 03-05-2022 07:44-0500 Body weight 72.[address] Ritesh Antonio Work Phone: [facility] 03-04-2022 14:44-0500 Body mass index (BMI) [Ratio] 30 kg/m2 Dr. Ritesh Antonio Work Phone: [facility] 03-04-2022 08:42-0500 Body mass index (BMI) [Ratio] 30 kg/m2 Dr. Rtiesh Antonio Work Phone: [facility] 03-04-2022 08:42-0500 Body temperature 95 [degF] Dr. Ritesh Antonio Work Phone: [facility] 03-04-2022 08:42-0500 Body weight 72.[address] Ritesh Antonio Work Phone: [facility] 03-04-2022 08:42-0500 Diastolic blood pressure 68 mm[Hg] Dr. Ritesh Antonio Work Phone: [facility] 03-04-2022 08:42-0500 Heart rate 85 /min Dr. Ritesh Antonio Work Phone: [facility] 03-04-2022 08:42-0500 Respiratory rate 18 /min Dr. Ritesh Antonio Work Phone: [facility] 03-04-2022 08:42-0500 Systolic blood pressure 102 mm[Hg] Dr. Ritesh Antonio Work Phone: [facility] 03-02-2022 22:34-0500 SaO2% (BldA) [Mass fraction] 99 % Dr. Ritesh Antonio Work Phone: [facility] 03-02-2022 19:38-0500 Body height 154.[address] Ritesh Antonio Work Phone: [facility] Work Phone: 03-02-2022 19:38-0500 Body mass index (BMI) [Ratio] 29.5 kg/m2 Dr. Ritesh Antonio Work Phone: [facility] 03-02-2022 19:38-0500 Body temperature 98.9 [degF] Dr. Ritesh Antonio Work Phone: [facility] 03-02-2022 19:38-0500 Body weight 71.[address] Ritesh Antonio Work Phone: [facility] 03-02-2022 19:38-0500 Diastolic blood pressure 76 mm[Hg] Dr. Ritesh Antonio Work Phone: [facility] 03-02-2022 19:38-0500 Heart rate 88 /min Dr. Ritesh Antonio Work Phone: [facility] 03-02-2022 19:38-0500 Respiratory rate 15 /min Dr. Ritesh Antonio Work Phone: [facility] 03-02-2022 19:38-0500 Systolic blood pressure 120 mm[Hg] Dr. Ritesh Antonio Work Phone: [facility] 02-26-2022 14:22-0500 Body mass index (BMI) [Ratio] 29.5 kg/m2 Dr. Ritesh Antonio Work Phone: [facility] 02-26-2022 14:22-0500 Body temperature 97.9 [degF] Dr. Ritesh Antonio Work Phone: [facility] 02-26-2022 14:22-0500 Body weight 70.[address] Ritesh Antonio Work Phone: [facility] 02-26-2022 14:22-0500 Diastolic blood pressure 72 mm[Hg] Dr. Ritesh Antonio Work Phone: [facility] 02-26-2022 14:22-0500 Heart rate 105 /min Dr. Ritesh Antonio Work Phone: [facility] 02-26-2022 14:22-0500 Respiratory rate 16 /min Dr. Ritesh Antonio Work Phone: [facility] 02-26-2022 14:22-0500 SaO2% (BldA) [Mass fraction] 98 % Dr. Ritesh Antonio Work Phone: [facility] 02-26-2022 14:22-0500 Systolic blood pressure 104 mm[Hg] Dr. Ritesh Antonio Work Phone: [facility] 01-28-2022 09:59-0500 Body height 154.9 cm Kamaljit Brown APRN.[employer] Work Phone: [facility] 01-28-2022 09:59-0500 Body temperature 96.91 [degF] Kamaljit Brown APRN.[employer] Work Phone: [facility] 01-28-2022 09:59-0500 Body weight 76.57 kg Jefferie Kevin [employer] Work Phone: [facility] 01-28-2022 09:59-0500 Diastolic blood pressure 86 mm[Hg] Kamaljit Brown CLAUDIA.[employer] Work Phone: [facility] 01-28-2022 09:59-0500 Heart rate 85 /min Kamaljit Brown [employer] DESIGNER.[employer] Work Phone: [facility] 01-28-2022 09:59-0500 Respiratory rate 14 /min Kamaljit Brown [employer] DESIGNER.[employer] Work Phone: [facility] 01-28-2022 09:59-0500 SaO2% (BldA) [Mass fraction] 97 % Zacherymarcianodelia Medinam [employer]OL[employer] DESIGNER.[employer] Work Phone: [facility] 01-28-2022 09:59-0500 Systolic blood pressure 120 mm[Hg] Zacherymarcianodelia FineKevinlia [employer] Work Phone: [facility] 01-27-2022 08:23-0500 Diastolic blood pressure 78 mm[Hg] Dr. Ritesh Antonio Work Phone: [facility] 01-27-2022 08:23-0500 Heart rate 74 /min Dr. Ritesh Antonio Work Phone: [facility] 01-27-2022 08:23-0500 Systolic blood pressure 113 mm[Hg] Dr. Ritesh Antonio Work Phone: [facility] 01-27-2022 07:45-0500 Body temperature 98.2 [degF] Dr. Ritesh Antonio Work Phone: [facility] 01-27-2022 07:45-0500 Respiratory rate 16 /min Dr. Ritesh Antonio Work Phone: [facility] 01-27-2022 07:45-0500 SaO2% (BldA) [Mass fraction] 96 % Dr. Ritesh Antonio Work Phone: [facility] 01-26-2022 00:00-0500 Body mass index (BMI) [Ratio] 31.7 kg/m2 Dr. Ritesh Antonio Work Phone: [facility] 01-26-2022 00:00-0500 Body weight 76.[address] Ritesh Antonio Work Phone: [facility] 01-25-2022 23:56-0500 Body temperature 98.6 [degF] Dr. Ritesh Antonio Work Phone: [facility] Work Phone: 01-25-2022 23:56-0500 Diastolic blood pressure 106 mm[Hg] Dr. Ritesh Antonio Work Phone: [facility] Work Phone: 01-25-2022 23:56-0500 Heart rate 103 /min Dr. Ritesh Antonio Work Phone: [facility] Work Phone: 01-25-2022 23:56-0500 Respiratory rate 21 /min Dr. Ritesh Antonio Work Phone: [facility] Work Phone: 01-25-2022 23:56-0500 SaO2% (BldA) [Mass fraction] 96 % Dr. Ritesh Antonio Work Phone: [facility] Work Phone: 01-25-2022 23:56-0500 Systolic blood pressure 142 mm[Hg] Dr. Ritesh Antonio Work Phone: [facility] Work Phone: 01-25-2022 19:53-0500 Body height 154.[address] Ritesh Antonio Work Phone: [facility] Work Phone: 01-25-2022 19:53-0500 Body mass index (BMI) [Ratio] 32.5 kg/m2 Dr. Ritesh Antonio Work Phone: [facility] Work Phone: 01-25-2022 19:53-0500 Body weight 78.[address] Ritesh Antonio Work Phone: [facility] Work Phone: 10-22-2021 10:47-0400 Body temperature 98.29 [degF] [facility] [employer] DESIGNER.[employer] Work Phone: [facility] 10-22-2021 10:47-0400 Body [facility] [employer] Work Phone: [facility] 10-22-2021 10:47-0400 Diastolic blood pressure 76 mm[Hg] [facility] [employer] DES[employer]ER.[employer] Work Phone: [facility] 10-22-2021 10:47-0400 Heart rate 92 /min [facility] [employer] DESIGNER.[employer] Work Phone: [facility] 10-22-2021 10:47-0400 Respiratory rate 21 /min [facility] [employer] DESIGNER.[employer] Work Phone: [facility] 10-22-2021 10:47-0400 SaO2% (BldA) [Mass fraction] 99 % [facility] [employer] DES[employer]ER.[employer] Work Phone: [facility] 10-22-2021 10:47-0400 Systolic blood pressure 114 mm[Hg] [facility] [employer] DESIGNER.[employer] Work Phone: [facility] 10-12-2021 14:00-0400 Body height 154.9 cm Ritesh Antonio MD Work Phone: [facility] 10-12-2021 14:00-0400 Body temperature 96.8 [degF] Ritesh Antonio MD Work Phone: [facility] 10-12-2021 14:00-0400 Body weight 70.13 kg Ritesh Antonio MD Work Phone: [facility] 10-12-2021 14:00-0400 Diastolic blood pressure 78 mm[Hg] Ritesh Antonio MD Work Phone: [facility] 08-22-2022 14:00-0400 Heart rate 106 /min Ritesh Antonio MD Work Phone: [facility] 10-12-2021 14:00-0400 Respiratory rate 14 /min Ritesh Antonio MD Work Phone: [facility] 10-12-2021 14:00-0400 SaO2% (BldA) [Mass fraction] 97 % Ritesh Antonio MD Work Phone: [facility] 10-12-2021 14:00-0400 Systolic blood pressure 120 mm[Hg] Ritesh Antonio MD Work Phone: [facility] 09-06-2021 13:07-0400 Body temperature 98.29 [degF] Corie Cantor APRN.[employer] Work Phone: [facility] 09-06-2021 13:07-0400 Body weight 70.31 kg Corie Cantor APRN.[employer] Work Phone: [facility] 09-06-2021 13:07-0400 Diastolic blood pressure 82 mm[Hg] Corie Cantor APRN.[employer] Work Phone: [facility] 09-06-2021 13:07-0400 Heart rate 90 /min Corie Cantor APRN.[employer] Work Phone: [facility] 09-06-2021 13:07-0400 Respiratory rate 16 /min Corie Cantor APRN.[employer] Work Phone: [facility] 09-06-2021 13:07-0400 SaO2% (BldA) [Mass fraction] 98 % Corie Cantor APRN.[employer] Work Phone: [facility] 09-06-2021 13:07-0400 Systolic blood pressure 126 mm[Hg] Corie Cantor APRN.[employer] Work Phone: [facility] 05-19-2021 10:58-0400 Body temperature 98.1 [degF] Dr. Ritesh Antonio Work Phone: [facility] Work Phone: 03-29-2022 10:58-0400 Heart rate 82 /min Dr. Ritesh Antonio Work Phone: [facility] Work Phone: 05-19-2021 10:58-0400 Respiratory rate 16 /min Dr. Ritesh Antonio Work Phone: [facility] Work Phone: 05-19-2021 10:58-0400 SaO2% (BldA) [Mass fraction] 98 % Dr. Ritesh Antonio Work Phone: [facility] Work Phone: 05-05-2021 10:52-0400 Body temperature 98.5 [degF] Dr. Ritesh Antonio Work Phone: [facility] Work Phone: 05-05-2021 10:52-0400 Heart rate 103 /min Dr. Ritesh Antonio Work Phone: [facility] Work Phone: 05-05-2021 10:52-0400 Respiratory rate 16 /min Dr. Ritesh Antonio Work Phone: [facility] Work Phone: 05-05-2021 10:52-0400 SaO2% (BldA) [Mass fraction] 94 % Dr. Ritesh Antonio Work Phone: [facility] Work Phone: 04-22-2021 14:30-0500 Body temperature 97.11 [degF] Ritesh Antonio MD Work Phone: [facility] 04-22-2021 14:30-0500 Body weight 67.13 kg Ritesh Antonio MD Work Phone: [facility] 04-22-2021 14:30-0500 Diastolic blood pressure 78 mm[Hg] Ritesh Antonio MD Work Phone: [facility] 04-22-2021 14:30-0500 Heart rate 102 /min Ritesh Antonio MD Work Phone: [facility] 04-22-2021 14:30-0500 Respiratory rate 18 /min Ritesh Antonio MD Work Phone: [facility] 04-22-2021 14:30-0500 SaO2% (BldA) [Mass fraction] 96 % Ritesh Antonio MD Work Phone: [facility] 04-22-2021 14:30-0500 Systolic blood pressure 138 mm[Hg] Ritesh Antonio MD Work Phone: [facility] 04-20-2021 14:22-0500 Body temperature 98.9 [degF] Dr. Ritesh Antonio Work Phone: [facility] Work Phone: 04-20-2021 14:22-0500 Heart rate 127 /min Dr. Ritesh Antonio Work Phone: [facility] Work Phone: 04-20-2021 14:22-0500 Respiratory rate 16 /min Dr. Ritesh Antonio Work Phone: [facility] Work Phone: 04-20-2021 14:22-0500 SaO2% (BldA) [Mass fraction] 94 % Dr. Ritesh Antonio Work Phone: [facility] Work Phone: 04-16-2021 13:10-0500 Body temperature 98.2 [degF] Dr. Ritesh Antonio Work Phone: [facility] Work Phone: 04-16-2021 13:10-0500 Diastolic blood pressure 68 mm[Hg] Dr. Ritesh Antonio Work Phone: [facility] Work Phone: 04-16-2021 13:10-0500 Heart rate 100 /min Dr. Ritesh Antonio Work Phone: [facility] Work Phone: 04-16-2021 13:10-0500 Respiratory rate 16 /min Dr. Ritesh Antonio Work Phone: [facility] Work Phone: 04-16-2021 13:10-0500 SaO2% (BldA) [Mass fraction] 96 % Dr. Ritesh Antonio Work Phone: [facility] Work Phone: 04-16-2021 13:10-0500 Systolic blood pressure 106 mm[Hg] Dr. Ritesh Antonio Work Phone: [facility] Work Phone: 04-15-2021 06:14-0500 Body height 154.[address] Ritesh Antonio Work Phone: [facility] Work Phone: 04-15-2021 06:14-0500 Body mass index (BMI) [Ratio] 28.7 kg/m2 Dr. Ritesh Antonio Work Phone: [facility] Work Phone: 04-15-2021 06:14-0500 Body weight [address] Ritesh Antonio Work Phone: [facility] Work Phone: Encounters Encounter Date Encounter Type Care Provider Facility Start: 09-13-2024 Encounter for other preprocedural examination Violetta Diazlay [facility] Start: 09-13-2024 End: 09-13-[address] Violetta Mcfarlane MD -Pulmonary Services/Neurology Work Phone: Start: 09-13-2024 End: 09-13-2024 ambulatory Violetta Diazlay Facility:[facility] Start: 09-04-2024 End: 09-04-[address] Violetta Mcfarlane MD [facility] Work Phone: Start: 09-04-2024 End: 09-04-[address] Violetta Mcfarlane MD [facility] Start: 09-04-2024 End: 09-04-[address] Violetta Mcfarlane MD Work Phone: -[facility] Start: 07-31-2024 End: 07-31-[address] Violetta Mcfarlane MD Work Phone: [facility] Work Phone: Start: 07-31-2024 End: 07-31-2024 Patient encounter procedure Panchito Khan DO -Cat Scan WC H Work Phone: Start: 07-31-2024 End: 07-31-2024 ambulatory Violetta [place] Facility:[facility] Start: 07-13-2024 End: 07-13-[address] Herb Simons MD -[facility] Work Phone: Start: 07-13-2024 End: 07-13-2024 ambulatory Violetta Bronx Facility:[facility] Start: 06-26-2024 End: 06-26-2024 Patient encounter procedure Panchito Khan DO -[facility] Work Phone: Start: 06-26-2024 End: 06-26-2024 ambulatory Violetta Denys Facility:[facility] Start: 04-04-2024 End: 04-04-2024 ambulatory Violetta [place] Facility:[facility] Start: 03-26-2024 End: 03-26-2024 ambulatory Violetta Denys Facility:[facility] Start: 03-13-2024 End: 03-13-2024 ambulatory Ivoletta Bronx Facility:[facility] Start: 01-11-2024 End: 01-11-2024 ambulatory Violetta [place] Facility:[facility] Start: 12-26-2023 End: 12-26-2023 ambulatory Elisabeth Mcgill Facility:[facility] Start: 12-12-2023 End: 12-12-2023 ambulatory Violetta Denys Facility:[facility] Start: 12-12-2023 End: 12-12-2023 ambulatory Violetta [place] Facility:[facility] Start: 09-19-2023 End: 09-19-2023 ambulatory Panchito Khan Facility:[facility] Start: 09-16-2023 ambulatory Violetta Mcfarlane Facility :[facility] Start: 02-24-2023 End: 02-24-2023 ambulatory VIOLETTA MCFARLANE Facility:[facility] Start: 01-24-2023 End: 01-24-[address] Violetta Mcfarlane Work Phone: [facility] Work Phone: Start: 01-24-2023 End: 01-24-[address] Violetta Mcfarlane Work Phone: [facility] Work Phone: Start: 12-14-2022 End: 12-14-[address] Violetta Mcfarlane Work Phone: [facility] Work Phone: Start: 11-30-2022 End: 11-30-[address] Violetta Mcfalrane Work Phone: [facility] Work Phone: Start: 11-30-2022 End: 11-30-[address] Violet[facility] Mc[facility]arlane [facility] Work Phone: Start: 11-26-2022 End: 11-26-[address] Violetta Mcfarlane Work Phone: [facility] Work Phone: Start: 11-24-2022 End: 11-24-[address] Violetta Mcfarlane Work Phone: [facility] Work Phone: Start: 11-08-2022 End: 11-08-[address] Violetta Mcfarlane Work Phone: [facility] Work Phone: Start: 11-08-2022 End: 11-08-[address] Violetta Mcfarlane Work Phone: [facility] Work Phone: Start: 11-03-2022 End: 11-03-[address] Violetta Mcfarlane Work Phone: [facility] Gastro[facility] Work Phone: Start: 10-18-2022 End: 10-18-[address] Violetta Mcfarlane Work Phone: [facility] Internal [facility] Work Phone: Start: 09-27-2022 End: 09-27-[address] Violetta Mcfarlane Work Phone: [facility] Work Phone: Start: 09-27-2022 End: 09-27-[address] Violetta Mcfarlane Work Phone: [facility] Work Phone: Start: 09-27-2022 End: 09-27-[address] Violetta Mcfarlane Work Phone: [facility] Internal Medicine Work Phone: Start: 09-13-2022 End: 09-13-2022 ambulatory VIOLETTA MCFARLANE Facility:[facility] Start: 09-03-2022 End: 09-03-[address] Violetta Mcfarlane Work Phone: [facility] Work Phone: Start: 09-03-2022 End: 09-03-[address] Violetta Mcfarlane Work Phone: [facility] [place] Work Phone: Start: 07-07-2022 End: 07-07-[address] Violetta Mcfarlane Work Phone: [facility] [place] Work Phone: Start: 06-25-2022 End: 06-25-[address] Violetta Mcfarlane Work Phone: [facility] Work Phone: Start: 06-15-2022 End: 06-15-[address] Viloetta Mcfarlane Work Phone: [facility] Internal Medicine Work Phone: Start: 06-05-2022 Non-patient / Non-visit Dr. Hatfield Work Phone: [facility] Inpatient Physicians Work Phone: Start: 06-04-2022 Non-patient / Non-visit Dr. Hatfield Work Phone: [facility] Work Phone: Start: 06-03-2022 Non-patient / Non-visit Dr. Ra latrell Antonio Work Phone: [facility] Inpatient Physicians Start: 06-02-2022 End: 06-05-2022 Evaluation and management of inpatient Dr. Ritesh Antonio Work Phone: [facility]-Progressive Care Unit Start: 06-02-2022 Non-patient / Non-visit Dr. Ra latrell Antonio Work Phone: [facility] Phys[facility] Start: 06-02-2022 Evaluation and manag ement of inpatient Dr. Ritesh Antonio Work Phone: [facility] Start: 05-12-2022 End: 05-12-2022 ambulatory VIOLETTA MCFARLANE Facility:[facility] Start: 05-11-2022 Shan fitzgerald APRN.CALENDER WIND UP HELPER Work Phone: [facility] Comment on above: Refill Request Start: 05-02-2022 Refill Kamaljit Mcnulty Stefanie lia SHARON Work Phone: [facility] Comment on above: Refill Request Start: 04-27-2022 End: 04-27-[address] Ritesh Antonio Work Phone: [facility] Start: 04-19-2022 End: 04-19-[address] Ritesh Antonio Work Phone: [facility] Work Phone: Start: 04-19-2022 End: 04-19-[address] Ritesh Antonio Work Phone: [facility] Internal Medicine Start: 04-15-2022 End: 04-15-[address] Ritesh Antonio Work Phone: [facility] Work Phone: Start: 04-15-2022 End: 04-15-[address] Ritesh Antonio [facility] Phone: [facility] Start: 04-13-2022 End: 04-13-[address] Ritesh Antonio Work Phone: [facility] Work Phone: Start: 04-13-2022 End: 04-13-[address] Ritesh Antonio Work Phone: [facility]-Pulmonary Services/Neurology Start: 04-02-2022 End: 04-02-[address] Ritesh Antonio Work Phone: [facility]-Sleep Lab Start: 04-01-2022 End: 04-01-[address] Ritesh Antonio Work Phone: [facility] Start: 03-08-2022 End: 03-08-[address] Ritesh Antonio Work Phone: [facility] Work Phone: Start: 03-08-2022 End: 03-08-[address] Ritesh Antonio Work Phone: [facility] Start: 03-08-2022 End: 03-08-[address] Ritesh Antonio Work Phone: [facility] Internal Medicine Start: 03-05-2022 End: 03-05-2022 Admission to same day surgery center Dr. Ritesh Antonio Work Phone: [facility]-Technology Coach/Special Procedures Start: 03-05-2022 End: 03-05-[address] Ritesh Antonio Work Phone: [facility] Work Phone: Start: 03-04-2022 End: 03-04-[address] Ritesh Antonio Work Phone: [facility] Start: 03-03-2022 Telephone encounter Ritesh Antonio MD Work Phone: [facility] Comment on above: Patient Update Start: 03-02-2022 End: 03-02-2022 Emergency department patient visit Dr. Ritesh Antonio Work Phone: [facility]-Emergency Department Start: 02-26-2022 End: 02-26-[address] Ritesh Antonio Work Phone: [facility] Start: 02-26-2022 End: 02-26-[address] Ritesh Antonio Work Phone: [facility] Start: 01-29-2022 Telephone encounter Kamaljit Brown APRN.CNP Work Phone: [facility] Comment on above: Results Start: 01-28-2022 End: 01-28-[address] Ritesh Antonio Work Phone: [facility] Start: 01-28-2022 End: 01-29-[address] Ritesh Antonio Work Phone: [facility] Work Phone: Start: 01-28-2022 End: 01-28-2022 ambulatory KAMALJIT BROWN Facility:[id number] Start: 01-28-2022 End: 01-28-2022 Transitional care manage srvc 14 day discharge Kamaljit Brown GOLF COURSE DESIGNER.[employer]ENDER WIND UP HELPER Work Phone: [facility] Comment on above: Sinus tachycardia by electrocardiography (Primary Dx); PVC (premature ventricular contraction); Migraine without aura and without status migrainosus, not intractable Start: 01-27-2022 Non-patient / Non-visit Dr. Ra latrell Antonio Work Phone: [facility] Start: 01-26-2022 Non-patient / Non-visit Dr. Ra latrell Antonio Work Phone: [facility] Start: 01-26-2022 Non-patient / Non-visit Dr. Ra latrell Antonio Work Phone: [facility] Start: 01-25-2022 Non-patient / Non-visit Dr. Ra latrell Antonio Work Phone: [facility] Start: 01-25-2022 End: 01-27-2022 Evaluation and management of inpatient Dr. Ritesh Antonio Work Phone: [facility]-Progressive Care Unit Start: 11-02-2021 Patient encounter procedure [facility]cf Prov ider [facility] Department Start: 10-22-2021 End: 10-22-2021 Patient encounter procedure Kieran Newsome GOLF COURSE DESIGNER.CALENDER WIND UP HELPER Work Phone: [facility] Comment on above: Viral illness (Prima ry Dx) Start: 10-12-2021 End: 10-13-2021 ambulatory RITESH ANTONIO Facility:[id number] Start: 10-12-2021 Encounter for genera l adult medical examination without abnormal findings RITESH ANTONIO [facility] Start: 10-12-2021 End: 10-12-2021 Patient encounter status Ritesh Antonio MD Work Phone: [facility] Start: 10-12-2021 End: 10-12-2021 Periodic preventive med est patient 40-64yrs Ritesh Antonio MD Work Phone: [facility] Comment on above: Wellness examination (Primary Dx); Mixed hyperlipidemia; Other iron deficiency anemia Start: 10-09-2021 Chart abstracting Ritesh Antonio MD Work Phone: [facility] Start: 10-09-2021 Patient encounter status Jean Antonio MD Work Phone: [facility] Start: 09-06-2021 End: 09-06-2021 Patient encounter procedure Corie Cantor APRN.[facility] Work Phone: [facility] Comment on above: Sinus congestion (Pr imary Dx) Start: 08-28-2021 End: 08-28-2021 ambulatory MANOJ FARFAN MD Facility:[facility] Start: 07-16-2021 End: 07-17-2021 ambulatory MANOJ FARFAN MD Facility:[facility] Start: 07-16-2021 End: 07-16-2021 Patient encounter procedure MANOJ FARFAN MD [facility] Start: 05-22-2021 End: 05-22-[address] Ritesh Antonio Work Phone: [facility] Start: 05-19-2021 End: 05-19-[address] Ritesh Antonio Work Phone: [facility] Start: 05-19-2021 End: 05-19-[address] Ritesh Antonio Work Phone: [facility] Start: 05-05-2021 End: 05-05-[address] Ritesh Antonio Work Phone: [facility] Start: 04-28-2021 End: 04-28-[address] Ritesh Antonio Work Phone: [facility] Start: 04-20-2021 End: 04-20-[address] Ritesh Antonio Work Phone: [facility]-Laboratory, OP Pavilion Start: 04-16-2021 Non-patient / Non-visit Dr. Ra latrell Antonio Work Phone: [facility] Start: 04-15-2021 End: 04-16-2021 Evaluation and management of inpatient Dr. Ritesh Antonio Work Phone: [facility]-Medical Surgical 3 Start: 04-15-2021 Non-patient / Non-visit Dr. Ra lartell Antonio Work Phone: [facility] Start: 02-03-[address] Morena Antonio Work Phone: [facility]-Outpatient Breast Imaging Start: 12-16-2017 Patient encounter procedure [facility] Procedures Date Procedure Procedure Detail Performing Clinician Start: 09-13-2024 X-ray of chest, PA a nd lateral views Dr. Violetta Mcfarlane MD Work Phone: Start: 07-31-2024 Computed tomography of abdomen and pelvis with contrast Dr. Violetta Mcfarlane MD Work Phone: Start: 12-01-2022 Radionuclide gastric emptying study Dr. Violetta Mcfarlane Work Phone: Start: 11-26-2022 Diagnostic radiograp hy of abdomen Dr. Violetta Mcfarlane Work Phone: Start: 11-24-2022 Diagnostic radiograp hy of abdomen Dr. Violetta Mcfarlane Work Phone: Start: 06-02-2022 CT of abdomen withou t contrast Dr. Ritesh Antonio Work Phone: Start: 06-02-2022 Plain chest X-ray Dr. Matheus Antonio Work Phone: Start: 03-02-2022 US scan of gallbladder Dr. Ritesh Antonio Work Phone: Start: 03-02-2022 Computed tomography of abdomen and pelvis with intravenous contrast Dr. Ritesh Antonio Work Phone: Start: 01-28-2022 MRI of joint of lowe r extremity Dr. Ritesh Antonio Work Phone: Start: 01-26-2022 CT of head without contrast Dr. Ritesh Antonio Work Phone: Start: 01-25-2022 CT angiography of ch est with contrast Dr. Ritesh Antonio Work Phone: Start: 01-25-2022 Plain chest X-ray Dr. Matheus Antonio Work Phone: Start: 10-12-2021 Adult depression screening assessment Ritesh Antonio MD Work Phone: Start: 10-09-2021 H/O: section History of section Ritesh Antonio MD Work Phone: Start: 10-09-2021 H/O: surgery History of sage gical procedure Ritesh Antonio MD Work Phone: Start: 05-22-2021 MRI of brain with contrast Dr. Ritesh Antonio Work Phone: Start: 04-14-2021 SARS-CoV-2 Antigen (Rapid) Dr. Ritesh Antonio Work Phone: Start: 02-03-2021 End: 02-03-[address] Ritesh Antonio Work Phone: H/O: surgery History of abdominoplasty Dr. Ritesh Antonio Work Phone: Comment on above: Abdominoplasty - 07/22 History of reduction of breast Status post bilateral breast reduction Dr. Ritesh Antonio Work Phone: Comment on above: 1. Bilateral breast reduction mammaplasty. 2. Excision painful scar contour deformity abdominal wall - 04/15/[address] Ritesh Fitzgerald son Work Phone: Urine culture Dr. Ritesh Fitzgerald son Work Phone: Plan of Treatment Date Care Activity Detail Author Start: 10-12-2026 LIPID SCREEN LIPID SCREEN [facility] Start: 10-08-2025 LIPID SCREEN LIPID SCREEN [facility] Start: 02-12-2025 DIABETES SCREEN DIABETES SCREEN [facility] Start: 01-28-2025 DIABETES SCREEN DIABETES SCREEN [facility] Start: 10-12-2024 DIABETES SCREEN DIABETES SCREEN [facility] Start: 10-09-2023 DIABETES SCREEN DIABETES SCREEN [facility] Start: 10-12-2022 Adult depression scr eening assessment DEPRESSION SCREENING [facility] Start: 06-15-2022 Patient referral [facility] Work Phone: Start: 06-05-[address] [facility] Start: 06-05-2022 Care planning and pr oblem solving actions [facility] Start: 06-03-2022 Consultation [facility] Start: 06-03-2022 [facility] Start: 06-02-2022 Admission procedure [facility] Start: 06-02-2022 Following clinical p athway protocol [facility] Start: 06-02-[address] [facility] Start: 06-02-2022 Assessment of risk o f venous thromboembolism [facility] Start: 06-02-2022 Insertion of cathete r into peripheral vein [facility] Start: 06-02-2022 Providing care accor ding to standard [facility] Start: 06-02-2022 Verification routine [facility] Start: 06-02-2022 [facility] Start: 06-02-2022 [facility] Start: 04-19-2022 [facility] Start: 02-21-2022 DEPRESSION ASSESSMENT DEPRESSION ASS ESSMENT [facility] Start: 02-12-2022 End: 04-14-2022 Comprehensive metabolic 2000 panel - Serum or Plasma COMP METABOLIC PANEL Lab Routine Elevated liver enzymes Expected: 02/12/2022, Expires: 04/14/2022 [facility] Work Phone: Comment on above: Expected: 02/12/2022 , Expires: 04/14/2022 Start: 02-12-2022 End: 04-14-2022 Thyroglobulin Ab [Units/volume] in Serum or Plasma THYROGLOBULIN AB Lab Routine Elevated TSH Expected: 02/12/2022, Expires: 04/14/2022 [facility] Work Phone: Comment on above: Expected: 02/12/2022 , Expires: 04/14/2022 Start: 02-12-2022 End: 04-14-2022 Thyrotropin [Units/volume] in Serum or Plasma TSH BLD Lab Routine Elevated TSH Expected: 02/12/2022, Expires: 04/14/2022 [facility] Work Phone: Comment on above: Expected: 02/12/2022 , Expires: 04/14/2022 Start: 02-12-2022 End: 04-14-2022 Thyroxine (T4) free [Mass/volume] in Serum or Plasma T4 FREE/FREE THYROX Lab Routine Elevated TSH Expected: 02/12/2022, Expires: 04/14/2022 [facility] Work Phone: Comment on above: Expected: 02/12/2022 , Expires: 04/14/2022 Start: 02-03-2022 Mammography MAMMOGRAM [facility] Start: 01-27-[address] [facility] Start: 01-26-2022 Following clinical p athway protocol [facility] Start: 01-25-[address] [facility] Start: 01-25-2022 Assessment of risk o f venous thromboembolism [facility] Start: 01-25-2022 Insertion of cathete r into peripheral vein [facility] Start: 01-25-2022 Measuring intake and output [facility] Start: 01-25-2022 Providing care accor ding to standard [facility] Start: 01-25-2022 Referral to care team coordinator scheduler [facility] Start: 01-25-2022 [facility] Start: 01-25-2022 Admission procedure [facility] Start: 01-25-2022 Verification routine [facility] Work Phone: Start: 01-25-2022 [facility] Start: 10-22-2021 Influenza vaccination INFLUENZA (#1) [facility] Start: 10-12-2021 End: 12-12-2021 CBC W Auto Differential panel - Blood [facility] Work Phone: Comment on above: Expected: 10/12/2021 , Expires: 12/12/2021 Start: 10-12-2021 End: 12-12-2021 Comprehensive metabolic 2000 panel - Serum or Plasma [facility] Work Phone: Comment on above: Expected: 10/12/2021 , Expires: 12/12/2021 Start: 10-12-2021 End: 12-12-2021 Lipid 1996 panel - Serum or Plasma [facility] Work Phone: Comment on above: Expected: 10/12/2021 , Expires: 12/12/2021 Start: 04-15-2021 Anesthesia reconstru ction breast ANESTH SURGERY OF BREAST [facility] Work Phone: Start: 04-15-2021 Reduction mammaplasty BREAST REDUCTI ON [facility] Work Phone: Start: 02-21-2021 DEPRESSION ASSESSMENT DEPRESSION ASS ESSMENT [facility] Start: 12-03-2020 COVID-19 VACCINE (3 - Booster for Moderna series) COVID-19 VACCINE (3 - Booster for Moderna series) [facility] Start: 08-28-2020 COVID-19 VACCINE (3 - Booster for Moderna series) COVID-19 VACCINE (3 - Booster for Moderna series) [facility] Start: 01-03-2012 SHINGRIX VACCINE (1 of 2) ROBERTS GRIX VACCINE (1 of 2) [facility] Start: 2007 COLOGUARD (FIT-DNA) COLOGUARD (FIT-D NA) [facility] Start: 2007 Colonoscopy COLONOSCOPY [facility] Start: 2007 COLORECTAL CANCER SCREENING COLORECTAL CANCER SCREENING [facility] Start: [address] COLONOGRAPHY [facility] Start: 2007 FECAL OCCULT BLOOD FECAL OCCULT BLOO D [facility] Start: 2007 SIGMOIDOSCOPY SIGMOIDOSCOPY [facility] Start: 2002 Mammography MAMMOGRAM [facility] Start: 01-03-1992 HPV TESTING HPV TESTING [facility] Start: 1983 PAP TESTING PAP TESTING [facility] Start: 1981 Urine microalbumin profile DTAP,TDAP ,TD (1 - Tdap) [facility] Start: 01-03-1980 HEPATITIS C SCREENING HEPATITIS C SC REENING [facility] Start: 01-03-1980 HIV SCREENING HIV SCREENING [facility] Start: 1974 Adult depression scr eening assessment DEPRESSION SCREENING [facility] Alanine aminotransfe rase [Enzymatic activity/volume] in Serum or Plasma [facility] Albumin [Mass/volume ] in Serum or Plasma [facility] Alkaline phosphatase [Enzymatic activity/volume] in Serum or Plasma [facility] Anion gap measurement [facility] Antibody to lupus [place] protein measurement [facility] Antibody to SS-A measurement [facility] Aspartate aminotrans ferase [Enzymatic activity/volume] in Serum or Plasma [facility] Bilirubin, total measurement [facility] BUN/Creatinine ratio [facility] Calcium [Mass/volume ] in Serum or Plasma [facility] Carbon dioxide, tota l [Moles/volume] in Serum or Plasma [facility] C[facility]ter[facility] Work Phone: [facility] Centromere protein B Ab [Units/volume] in Serum [facility] Chloride [Moles/volu me] in Serum or Plasma [facility] Chromatin Ab [Units/volume] in Serum or Plasma [facility] Creatinine [Moles/vo lume] in Serum or Plasma [facility] DNA double strand Ab [Units/volume] in Serum [facility] Glucose [Mass/volume ] in Serum or Plasma [facility] Hematocrit [Volume Fraction] of Blood [facility] Hemoglobin [Mass/vol ume] in Blood [facility] Josefina-1 extractable nuc lear Ab [Units/volume] in Serum [facility] Leukocytes [#/volume ] in Blood [facility] Mean corpuscular hemoglobin concentration determination [facility] Mean corpuscular hemoglobin determination [facility] Measurement of renal function [facility] Neutrophil count [facility] Neutrophil percent differential count [facility] Patient Education ED Abdominal P ain Unkn Cause Fem ED Constipation (Adult) [facility] Work Phone: Patient referral [facility] Work Phone: Platelets [#/volume] in Blood [facility] Polysomnography [facility] Potassium [Moles/vol ume] in Serum or Plasma [facility] Red blood cell count [facility] Red cell distributio n width determination [facility] SCL-70 extractable n uclear Ab [Units/volume] in Serum by Immunoassay [facility] Zambrano extractable nu clear Ab [Presence] in Serum [facility] Sodium [Moles/volume ] in Serum or Plasma [facility] Total protein measurement [facility] Urea nitrogen [Mass/volume] in Serum or [place] [facility] [place] Immunization Date Immunization Notes Care Provider Harriet cele 07-03-2020 Covid (Moderna) Dr. Ritesh Antonio Work Phone: [facility] 06-05-2020 Covid ([place]) Dr. Ritesh Antonio Work Phone: [facility] Payers Date Payer Category Payer Self-pay [id number] 2021 Unknown 2021 Unknown [id number] 2021 Unknown MMO MMO SU[employer] PLUS [id number] 2021-Present [phone] [address] [place] [address] PPO [id number] 1960 Unknown [id number] 1960 Unknown [id number] [id number] 1960 Unknown [id number] 2..[id number] Unknown [id number] [id number] Unknown [id number] 2..840.1.872874.3.579.2.462 Unknown [id number] 2..840.1.863957.3.579.2.462 Unknown [id number] 2..840.1.975869.3.579.2.462 Unknown [id number] 2..840.1.487483.3.579.2.462 Unknown [id number] 2..840.1.151784.3.579.2.462 Unknown [id number] 2.16.840.1.881108.3.579.2.462 Unknown [id number] 2..840.1.445878.3.579.2.462 Unknown [id number] 2..840.1.604404.3.579.2.462 Unknown [id number] 2.16.840.1.692684.3.579.2.462 Unknown [id number] 2.16.840.1.803035.3.579.2.462 Unknown [id number] 2.16.840.1.530070.3.579.2.462 Unknown [id number] [id number] Unknown [id number] 2..[id number] Social History Date Type Detail Facility [facility] Work Phone: Start: 05-19-2021 End: 11-03-2022 Tobacco smoking status NHIS Unknown if ever smoked [facility] Start: 07-15-2020 Non-smoker [facility] Start: 1960 Sex Assigned At Female [facility] Start: 07-16-2021 Tobacco smoking status Never s moked tobacco (finding) [facility] Sex Assigned At Sex [facility] Start: 03-15-2013 End: 07-13-2024 Tobacco smoking status NHIS Ex-smoker [facility] Work Phone: End: 11-18-1989 History of tobacco use Current smoker [facility] Start: 09-06-2021 End: 01-28-2022 Alcohol intake Current drinker of alcohol (finding) [facility] Start: 03-15-2013 History SDOH Alcohol Comment Socially [facility] Start: 1960 Sex Assigned At Not on file [facility] End: 11-18-1989 History of tobacco use Cigarette Smoker [facility] Start: 03-15-2013 End: 10-12-2021 Tobacco use and exposure Smokeless tobacco non-user [facility] Start: 09-27-2021 End: 10-22-2021 Exposure to SARS-CoV-2 (event) Not sure [facility] Start: 10-12-2021 History SDOH Alcohol Frequency 2 [facility] Start: 10-12-2021 History SDOH Alcohol Std Drinks 1 [facility] Start: 10-12-2021 History SDOH Social Connections Phone 5 [facility] Start: 10-12-2021 History SDOH Social Connections Living 3 [facility] Start: 10-12-2021 History SDOH Physica l Activity DPW 0 [facility] Start: 11-09-2016 None [facility] NEGATED: Highlighted rowStart: NINF History of tobacco use Passive smoker [facility] Medical Equipment Procedure Code Equipment Code Equipment Origin al Text Equipment Identifier Dates Breast reduction AMNIOFIX, 2 x12CM FDA S tart: 04-15-2021 Breast reduction AMNIOFIX, 2 x12CM FDA S tart: 04-15-2021 Breast reduction Plant polysacch aride haemostatic agent, bioabsorbable [id number] FDA Start: 04-15-2021 Breast reduction AMNIOFIX, 2 x12CM FDA S tart: 04-15-2021 Breast reduction AMNIOFIX, 2 x12CM FDA S tart: 04-15-2021 Breast reduction AMNIOFIX, 2 x12CM FDA S tart: 04-15-2021 Breast reduction AMNIOFIX, 2 x12CM FDA S tart: 04-15-2021 Breast reduction AMNIOFIX, 2 x12CM FDA S tart: 04-15-2021 Breast reduction AMNIOFIX, 2 x12CM FDA S tart: 04-15-2021 Breast reduction AMNIOFIX, 2 x12CM FDA S tart: 04-15-2021 Breast reduction AMNIOFIX, 2 x12CM FDA S tart: 04-15-2021 Breast reduction AMNIOFIX, 2 x12CM FDA S tart: 04-15-2021 Breast reduction AMNIOFIX, 2 x12CM FDA S tart: 04-15-2021 Breast reduction AMNIOFIX, 2 x12CM FDA S tart: 04-15-2021 Breast reduction AMNIOFIX, 2 x12CM FDA S tart: 04-15-2021 Breast reduction AMNIOFIX, 2 x12CM FDA S tart: 04-15-2021 Breast reduction AMNIOFIX, 2 x12CM FDA S tart: 04-15-2021 Breast reduction AMNIOFIX, 2 x12CM [facility] S tart: 04-15-2021 Breast reduction AMNIOFIX, 2 x12CM FDA S tart: 04-15-2021 Breast reduction AMNIOFIX, 2 x12CM FDA S tart: 04-15-2021 Breast reduction AMNIOFIX, 2 x12CM [facility] S tart: 04-15-2021 Breast reduction AMNIOFIX, 2 x12CM [facility] S tart: 04-15-2021 Breast reduction AMNIOFIX, 2 x12CM FDA S tart: 04-15-2021 Breast reduction AMNIOFIX, 2 x12CM FDA S tart: 04-15-2021 Breast reduction AMNIOFIX, 2 x12CM FDA S tart: 04-15-2021 Breast reduction AMNIOFIX, 2 x12CM FDA S tart: 04-15-2021 Breast reduction AMNIOFIX, 2 x12CM FDA S tart: 04-15-2021 Breast reduction AMNIOFIX, 2 x12CM FDA S tart: 04-15-2021 Breast reduction AMNIOFIX, 2 x12CM FDA S tart: 04-15-2021 Breast reduction AMNIOFIX, 2 x12CM FDA S tart: 04-15-2021 Breast reduction AMNIOFIX, 2 x12CM FDA S tart: 04-15-2021 Breast reduction AMNIOFIX, 2 x12CM FDA S tart: 04-15-2021 Breast reduction AMNIOFIX, 2 x12CM FDA S tart: 04-15-2021 Breast reduction AMNIOFIX, 2 x12CM FDA S tart: 04-15-2021 Breast reduction AMNIOFIX, 2 x12CM FDA S tart: 04-15-2021 Breast reduction AMNIOFIX, 2 x12CM FDA S tart: 04-15-2021 Breast reduction AMNIOFIX, 2 x12CM FDA S tart: 04-15-2021 Breast reduction AMNIOFIX, 2 x12CM FDA S tart: 04-15-2021 Breast reduction AMNIOFIX, 2 x12CM FDA S tart: 04-15-2021 Breast reduction AMNIOFIX, 2 x12CM FDA S tart: 04-15-2021 Breast reduction AMNIOFIX, 2 x12CM FDA S tart: 04-15-2021 Abdominoplasty MISTY 3GRM HEMO STAT ABS FDA Start: 07-22-2020 Abdominoplasty MISTY 3GRM HEMO STAT ABS FDA Start: 07-22-2020 Abdominoplasty MISTY 3GRM HEMO STAT ABS FDA Start: 07-22-2020 Abdominoplasty MISTY 3GRM HEMO STAT ABS FDA Start: 07-22-2020 Abdominoplasty MISTY 3GRM HEMO STAT ABS FDA Start: 07-22-2020 Abdominoplasty MISTY 3GRM HEMO STAT ABS FDA Start: 07-22-2020 Abdominoplasty MISTY 3GRM HEMO STAT ABS FDA Start: 07-22-2020 Abdominoplasty MISTY 3GRM HEMO STAT ABS FDA Start: 07-22-2020 Abdominoplasty MISTY 3GRM HEMO STAT ABS FDA Start: 07-22-2020 Abdominoplasty MISTY 3GRM HEMO STAT ABS FDA Start: 07-22-2020 Abdominoplasty MISTY 3GRM HEMO STAT ABS FDA Start: 07-22-2020 Abdominoplasty MISTY 3GRM HEMO STAT ABS FDA Start: 07-22-2020 Abdominoplasty MISTY 3GRM HEMO STAT ABS FDA Start: 07-22-2020 Abdominoplasty MISTY 3GRM HEMO STAT ABS FDA Start: 07-22-2020 Abdominoplasty MISTY 3GRM HEMO STAT ABS FDA Start: 07-22-2020 Abdominoplasty MISTY 3GRM HEMO STAT ABS FDA Start: 07-22-2020 Abdominoplasty MISTY 3GRM HEMO STAT ABS FDA Start: 07-22-2020 Abdominoplasty MISTY 3GRM HEMO STAT ABS FDA Start: 07-22-2020 Abdominoplasty MISTY 3GRM HEMO STAT ABS FDA Start: 07-22-2020 Abdominoplasty MISTY 3GRM HEMO STAT ABS FDA Start: 07-22-2020 Abdominoplasty MISTY 3GRM HEMO STAT ABS FDA Start: 07-22-2020 Abdominoplasty MISTY 3GRM HEMO STAT ABS FDA Start: 07-22-2020 Abdominoplasty MISTY 3GRM HEMO STAT ABS FDA Start: 07-22-2020 Abdominoplasty MISTY 3GRM HEMO STAT ABS FDA Start: 07-22-2020 Abdominoplasty MISTY 3GRM HEMO STAT ABS FDA Start: 07-22-2020 Abdominoplasty MISTY 3GRM HEMO STAT ABS FDA Start: 07-22-2020 Abdominoplasty MISTY 3GRM HEMO STAT ABS FDA Start: 07-22-2020 Abdominoplasty MISTY 3GRM HEMO STAT ABS FDA Start: 07-22-2020 Abdominoplasty MISTY 3GRM HEMO STAT ABS FDA Start: 07-22-2020 Abdominoplasty MISTY 3GRM HEMO STAT ABS FDA Start: 07-22-2020 Abdominoplasty MISTY 3GRM HEMO STAT ABS FDA Start: 07-22-2020 Abdominoplasty MISTY 3GRM HEMO STAT ABS FDA Start: 07-22-2020 Abdominoplasty MISTY 3GRM HEMO STAT ABS FDA Start: 07-22-2020 Abdominoplasty MISTY 3GRM HEMO STAT ABS FDA Start: 07-22-2020 Abdominoplasty MISTY 3GRM HEMO STAT ABS FDA Start: 07-22-2020 Abdominoplasty MISTY 3GRM HEMO STAT ABS FDA Start: 07-22-2020 Abdominoplasty MISTY 3GRM HEMO STAT ABS FDA Start: 07-22-2020 Abdominoplasty MISTY 3GRM HEMO STAT ABS FDA Start: 07-22-2020 Abdominoplasty MISTY 3GRM HEMO STAT ABS FDA Start: 07-22-2020 Abdominoplasty IMSTY 3GRM HEMO STAT ABS FDA Start: 07-22-2020 Goals Date Patient Goal Desired Activity /State Functional Status Date Assessment Result Facility 06-05-2022 Functional status Activity Ability Indepe ndent [facility] Work Phone: 06-05-2022 Functional status Bathroom Privilege [facility] Work Phone: 01-27-2022 Functional status Ambulates;Up ad fransisca [facility] Work Phone: 04-16-2021 Functional status Up ad fransisca;Chair [facility] Work Phone: Mental Status Date Assessment Result Facility 06-05-2022 Cognitive function Voice/Name [facility] Work Phone: 06-02-2022 Cognitive function Voice/Name [facility] Work Phone: 01-27-2022 Cognitive function Voice/Name [facility] Work Phone: 01-25-2022 Cognitive function Patient Elaine newsome Person;Place;Time [facility] Work Phone: 04-16-2021 Cognitive function Level Of Cons ciousness Awake;Alert;Appropriate;Follow s Commands [facility] Work Phone: 04-16-2021 Cognitive function Voice/Name [facility] Work Phone: Clinical Notes 09-06-2021 to 09-14-2024 Note Date & Type Note Facility 09-14-2024 Radiology Diagnostic study note [facility] [address] [place] [address] Chest PA and Lateral MR#: [id number] Acct: [id number] Name: MARK ANDERSON MAURICIO Rep #: [id number] : 1960 F 64 From: Windy Aldridge MD PCP: Dr. Violetta Mcfarlane MD Status: REG CLI Study:Chest PA and Lateral Date of Exam: 09/13/24 Exam# [id number] Ordering Dr: Violetta Mcfarlane MD PROCEDURE: CHEST PA AND LATERAL 09/13/2024 REASON FOR EXAM: PREOPERATIVE CLEARANCE TECHNIQUE: CHEST PA AND LATERAL COMPARISON: 06/02/2022 FINDINGS: No focal consolidation. No pleural effusion or pneumothorax. Cardiac silhouette is within normal limits. No acute fractures. RAD/Chest PA and Lateral IMPRESSION: No focal consolidations. Reading Location: [facility] CC: Dr. Violetta Mcfarlane MD ~ Spa Associate: Signed [facility] 08-02-2024 Radiology Diagnostic study note [facility] [address] [place] [address] Abdomen/Pelvis WITH Contrast MR#: [id number] Acct: [id number] Name: JUSTINMARK Rep #: [id number] : 1960 F 64 From: Betsy Kaur MD PCP: Dr. Violetta Mcfarlane MD Status: REG CLI Study:Abdomen/Pelvis WITH Contrast Date of Ex am: 07/31/24 Exam# [id number] Ordering Dr: Matheus Khan DO PROCEDURE: ABDOMEN/PELVIS WITH CONTRAST 07/31/2024 REASON FOR EXAM: CHRONIC CONSTIPATION, NAUSEA TECHNIQUE: Abdomen and pelvis CT with intravenous contrast. Coronal and Sagittal reconstruction series were provided. PATIENT PREPARATION: Per protocol ORAL CONTRAST TYPE: Patient ingested oral contrast. CONTRAST: Isovue-350 VOLUME: 100 mL One or more dose reduction techniques were used (e.g., Automated exposure control, adjustment of the mA and/or kV according to patient size, use of iterative reconstruction technique. RADIATION DOSE SUMMARY: CTDlvol: 8.59 mGy DLP: 451 mGycm COMPARISON: 06/02/2022. FINDINGS: Unchanged scattered simple hepatic cysts. Unchanged nonspecific dilatation of the common bile duct in the head of the pancreas without obstructing stone. The common bile duct measures 7.5 mm in the head of the pancreas, unchanged. Moderate amount of fecal residue in the large bowels, probably constipation. The visualized lung bases are unremarkable. Normal remaining liver. Normal gallbladder and remaining biliary system. Normal spleen. Normal pancreas. Normal bilateral adrenal glands. Normal size of the right kidney. There is no right renal mass. There are no right renal calculi. There is no right hydronephrosis. Normal visualized right ureter. Normal size of the left kidney. There is no left renal mass. There are no leftrenal calculi. There is no left hydronephrosis. Normal visualized left ureter. Normal visualized stomach. Normal small intestine. The appendix is visualized and appears normal. There is no demonstrated peritoneal fluid. Normal abdominal aorta. Normal inferior vena cava. Normal retroperitoneum. Normal urinary bladder. There is no pelvic mass lesion or lymphadenopathy. There is no pelvic fluid. Normal abdominal wall. Mild diffuse spondylosis. CT/Abdomen/Pelvis WITH Contrast IMPRESSION: Unchanged scattered simple hepatic cysts. Unchanged nonspecific dilatation of the common bile duct in the head of the pancreas without obstructing stone. The common bile duct measures 7.5 mm in the head of the pancreas, unchanged. Moderate amount of fecal residue in the large bowels, probably constipation. [facility] CC: Dr. Violetta Mcfarlane MD; Panchito Friend, DO ~ Spa Associate: Gus [facility] 06-26-2024 Evaluation note Diagnosis Onset Date Resolution Nausea alone acute June 26 10:08am Constipation chronic June 26 10:08am Encounter for cosmetic surgery acute July 13, 2024 2 :12pm [facility] Work Phone: 1(336) 718-448505-06-2025 Evaluation note* Diagnosis Onset Date Resolution Status Admit Date Nausea alone acute June 26 10:08am Constipation chronic June 26 10:08am Encounter for cosmetic surgery acute July 13, 2024 2:12pm Migraine acute September 04 1:40pm Preoperative clearance noneactive [facility] 2024 1:40pm Autoimmune disorder noneactive September 04, 2024 1:40pm Anxiety and depression noneactive [facility] 2024 1:40pm Left shoulder pain noneactive August 212024 1:40pm Irritable bowel syndrome wit h constipation noneactive September 04, 2024 1:40pm [facility] Work Phone: 1(921) 458-575305-06-2025 Evaluation note* Diagnosis Onset Date Resolution Status Admit Date Nausea alone acute June 26 10:08am Constipation chronic June 26 10:08am Encounter for cosmetic surgery acute July 13, 2024 2:12pm Migraine acute September 04 1:40pm Ganglion cyst noneactive September 04, 2024 1:40pm Preoperative clearance noneactive [facility] 2024 1:40pm Autoimmune disorder noneactive September 04, 2024 1:40pm Anxiety and depression noneactive [facility] 2024 1:40pm Irritable bowel syndrome wit h constipation noneactive September 04, 2024 1:40pm [facility] Work Phone: 1(458) 428-686507-26-2024 [facility] Medical Records Department [address] [place] [address] History Physical Exam 09/16/23 0633 MR#: [id number] Acct: [id number] Name: MARK ANDERSON Rep #: [id number] : 1960 63 From: [facility] Friend DO PCP: Dr. Violetta Mcfarlane MD Status:[place] [facility] [place]: [place] [address] History and Physical Date of Admission: 09/16/23 MARK ANDERSON, is a 63 F who presents to the office today for follow up. OV 6.11.24 pt reports continued constipation; reports a firm painful bm once every 4-5 days; denies blood in the stool. Pt reports N/V, abdominal pain, and bloating that she reports go along with not being able to have a bm. ROS Const Constitutional: Positive for fatigue and headache(s); No fever(s) or weight change ENT ENT: Positive for headache(s); No difficulty swallowing Gastro GI: Positive for abdominal pain, bloating, constipation, excessive flatus, nausea/dyspepsia and vomiting; No belching, change in bowel habits, change in stool character, coffee ground emesis, cramping, diarrhea, heartburn, difficulty swallowing, feeling full early, incontinent of stools, Vomiting blood/hematemesis, Blood in stool, loose stools, Black,tarry stools, pain with swallowing or other Musc Musculoskeletal: Positive for joint pain, back pain, numbness, stiffness, tingling, Arthritis and restless legs Skin Skin: No yellowing of the eye or itchy eyes Neuro Neurology: Positive for headache(s), numbness, tingling and restless legs Psych Psychiatric: Positive for anxiety and No depression Endo Endocrine: Positive for fatigue; No weight change Aller/Imm Allergy/Immunologic: No itchy eyes Dani/Lymp Hematologic/Lymphatic: Positive for easy bruising; No easy bleeding Exam Const General: cooperative, healthy appearing, no acute distress, well developed, not diaphoretic and not ill appearing Nutritional Appearance: well nourished Orientation: alert and oriented x3 Limitations: mental status not altered [facility] Head: normal to inspection, normocephalic and atraumatic Ears: hearing grossly normal bilaterally Face and sinus: normal facial exam Mouth: oral mucosae normal and moist mucous membranes Teeth and gingiva: dentition normal Throat: posterior oropharynx normal Eyes Conjunctivae: conjunctivae normal Sclera: sclerae normal Pupils: PERRL Chest Chest palpation inspection: normal inspection of the chest Resp Effort Inspection: normal respiratory effort, able to speak in complete sentences, no audible wheezes and no cough Auscultation: Bilateral: Clear to Auscultation Cardio Rate: regular rate Rhythm: regular rhythm Heart Sounds: S1 normal, S2 normal and no murmurs GI Inspection: non-distended Auscultation: normal bowel sounds Palpation: soft and no hepatosplenomegaly Skin General: no rashes or lesions noted and dry skin Wounds: no wounds Neuro General: patient alert and patient oriented x3 Cranial Nerves: PERRL Speech: speech normal Extrem General: normal to inspection and no edema Psych Appearance: grossly normal Mental Status: mental status grossly normal Affect: normal affect Attitude: cooperative Assessment and Plan Assessment and Plan (1) Nausea alone: Status: Acute Plan: Nausea with early satiety for least the last year. Patient does admit that she may have a eating disorder. However she is not binging and avoiding food probably. She wants to lose weight. She used to take laxatives to avoid gaining weight. She does not take any laxatives at this time. She gets very bloated and gassy. She also has a recent diagnosis of Sjogren syndrome. We went over the GI effects of Sjogren syndrome including delayed gastric emptying and delayed small bowel intestinal motility. I think she should undergo a gastric emptying study to evaluate the motility in her stomach and she should undergo an MR enterography. (2) Constipation: Status: Acute Qualifiers: Constipation type: chronic idiopathic constipation Qualified Code(s): K59.04 - Chronic idiopathic constipation Plan: The differential diagnosis for her includes slow transit constipation versus pelvic floor dysfunction. 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 She had a normal colonoscopy almost 10 years ago. She does not have any obstructive symptoms. She has agreed to undergo screening colonoscopy. She had nausea and diarrhea after taking prucalopride. I would like to get a sits marker test first to evaluate her colonic transit time as we evaluate her gastric transit time and small bowel. Her sits marker test is still slow transit constipation without any signs of pelvic floor dysfunction. Also displayed severe chronic constipation. Depending on what those studies show she may need endoscopy however a lot of her issues coul (more content not included)...[facility] 02-24-2023 NoteHNO ID: [id number] Author: DANY HOOK PA-C Service: ? Author Type: Physician Dietary Assistant Type: Progress Notes Filed: 02/24/2023 16:44 Note Text: This note was created using [employer]. Subjective Mark Anderson is a 63 year old female. HPI Presents with a chief complaint of sinus pressure and congestion worsening over the past 12 days. She did have a cough with that but that seems to have improved. She did try some Robitussin cough and cold medicine [id number]. She denies chest pain or shortness of breath. No fever. She did not do a home COVID test. Review of Systems Constitutional: Negative. HENT: Positive for congestion, ear pain, postnasal drip, sinus pressure and sinus pain. Respiratory: Positive for cough. Negative for shortness of breath and wheezing. All other systems reviewed and are negative. PAST MEDICAL HISTORY Diagnosis Date Anemia B12 deficiency Hypoglycemia Irregular menstrual bleeding s/p ablation Migraine headache Current Outpatient Medications Medication Sig Dispense Refill traZODone (DESYREL) 100 mg tablet TAKE 1 AND 1/2 TABLETS AT BEDTIME 135 tablet 3 escitalopram oxalate (LEXAPRO) 10 mg tablet doxycycline (VIBRA-TABS) 100 mg tablet Take 1 tablet by mouth two times a day for 7 days. 14 tablet 0 topiramate (TOPAMAX) 25 mg tablet Take 1 tablet by mouth once daily. (Patient not taking: Reported on 09/13/2022) 90 tablet 0 metoprolol tartrate, short acting, (LOPRESSOR) 50 mg tablet Take 1 tablet by mouth twice daily. (Patient not taking: Reported on 09/13/2022) 180 tablet 0 No current facility-administered medications for this visit. PAST SURGICAL HISTORY Procedure Laterality Date PAST SURGICAL HISTORY OF 2 PAST SURGICAL HISTORY OF kidney stone = lithotripsy PAST SURGICAL HISTORY OF ablation uterus FAMILY HISTORY Problem Relation Age of Onset Cancer Father lung other (thyroid cancer [Other]) Daughter Thyroid Mother Lipids Mother Cancer Maternal Grandmother colon Cancer Paternal Grandmother breast Social History Tobacco Use Smoking status: Former Types: Cigarettes Quit date: 11/18/1989 Years since quittin.2 Passive exposure: Never Smokeless tobacco: Never Vaping Use Vaping Use: Never used Substance Use Topics Alcohol use: Yes Comment: Socially Drug use: No Objective BP 136/84 Pulse 78 Temp 36.6 ?C (97.9 ?F) (Tympanic) Resp 18 Wt 64.4 kg (142 lb) SpO2 96% BMI 26.83 kg/m? Physical Exam Vitals reviewed. Constitutional: Appearance: Normal appearance. HENT: Head: Normocephalic and atraumatic. Right Ear: Tympanic membrane, ear canal and external ear normal. Left Ear: Tympanic membrane, ear canal and external ear normal. Nose: Congestion present. Right Sinus: Maxillary sinus tenderness and frontal sinus tenderness present. Left Sinus: Maxillary sinus tenderness and frontal sinus tenderness present. Cardiovascular: Rate and Rhythm: Normal rate and regular rhythm. Heart sounds: Normal heart sounds. Pulmonary: Effort: Pulmonary effort is normal. Breath sounds: Normal breath sounds. Musculoskeletal: Cervical back: Neck supple. Skin: General: Skin is warm and dry. Neurological: Mental Status: She is alert. Assessment and Plan ASSESSMENT/PLAN: 1. Acute non-recurrent pansinusitis - ICD9: 461.8, ICD10: J01.40 - Will begin treatment with Doxycycline d/t pcn allergy, recommend flonase otc. - Follow up in 3-5 days if symptoms persist or worsen. [facility] NoteHNO ID: [id number] Author: Dany Hook PA-C Service: ? Author Type: Physician Dietary Assistant Type: Progress Notes Filed: 09/13/2022 4:12 PM Note Text: This note was created using NoteWriter. Subjective Mark Anderson is a 62 year old female. HPI Presents with left eye matting over the past 2 weeks. She noticed this morning and had worsening. She has had some redness off and on as well. She denies any cough or congestion. No fever. No vomiting or diarrhea. She has had a headache off and on as well. No weakness, numbness or tingling. Review of Systems Constitutional: Negative. HENT: Negative. Eyes: Positive for pain, discharge, redness and itching. Negative for photophobia and visual disturbance. Respiratory: Negative. Cardiovascular: Negative. Gastrointestinal: Negative. Genitourinary: Negative. Musculoskeletal: Negative. All other systems reviewed and are negative. PAST MEDICAL HISTORY Diagnosis Date Anemia B12 deficiency Hypoglycemia Irregular menstrual bleeding s/p ablation Migraine headache Current Outpatient Medications Medication Sig Dispense Refill traZODone (DESYREL) 100 mg tablet TAKE 1 AND 1/2 TABLETS AT BEDTIME 135 tablet 3 escitalopram oxalate (LEXAPRO) 10 mg tablet ofloxacin (OCUFLOX) 0.3 % ophthalmic solution Use 2 Drops in the left eye every 4 hours for 7 days. 5 mL 0 topiramate (TOPAMAX) 25 mg tablet Take 1 tablet by mouth once daily. (Patient not taking: Reported on 09/13/2022) 90 tablet 0 metoprolol tartrate, short acting, (LOPRESSOR) 50 mg tablet Take 1 tablet by mouth twice daily. (Patient not taking: Reported on 09/13/2022) 180 tablet 0 No current facility-administered medications for this visit. PAST SURGICAL HISTORY Procedure Laterality Date PAST SURGICAL HISTORY OF 2 PAST SURGICAL HISTORY OF kidney stone = lithotripsy PAST SURGICAL HISTORY OF ablation uterus FAMILY HISTORY Problem Relation Age of Onset Cancer Father lung other (thyroid cancer [Other]) Daughter Thyroid Mother Lipids Mother Cancer Maternal Grandmother colon Cancer Paternal Grandmother breast Social History Tobacco Use Smoking status: Former Types: Cigarettes Quit date: 11/18/1989 Years since quittin.8 Passive exposure: Never Smokeless tobacco: Never Vaping Use Vaping Use: Never used Substance Use Topics Alcohol use: Yes Comment: Socially Drug use: No Objective BP 106/64 Pulse 100 Temp 36.9 ?C (98.4 ?F) Resp 16 Wt 66.7 kg (147 lb) SpO2 96% BMI 27.78 kg/m? Physical Exam Vitals reviewed. Constitutional: Appearance: Normal appearance. HENT: Head: Normocephalic and atraumatic. Right Ear: Tympanic membrane, ear canal and external ear normal. Left Ear: Tympanic membrane, ear canal and external ear normal. Nose: Nose normal. Mouth/Throat: Mouth: Mucous membranes are moist. Pharynx: Oropharynx is clear. Eyes: Extraocular Movements: Extraocular movements intact. Comments: Patient has ptosis slightly of the left upper eyelid. Pupils are equil round and reactive bilaterally. Some slight erythema of the left conjunctiva. Watering of the eye. Cardiovascular: Rate and Rhythm: Normal rate and regular rhythm. Heart sounds: Normal heart sounds. Pulmonary: Effort: Pulmonary effort is normal. Breath sounds: Normal breath sounds. Musculoskeletal: Cervical back: Neck supple. Skin: General: Skin is warm and dry. Neurological: General: No focal deficit present. Mental Status: She is alert and oriented to person, place, and time. Cranial Nerves: No cranial nerve deficit. Sensory: No sensory deficit. Motor: No weakness. Coordination: Coordination normal. Assessment and Plan ASSESSMENT/PLAN: 1. Eye irritation - ICD9: 379.99, ICD10: H57.89 (primary diagnosis) Will treat with ofloxacin. Discussed the ptosis of the eyelid, patient states she has had issues with this in the past, seems to be worsening recently. Recommended she see her eye doctor tomorrow. 2. Ptosis of eyelid, left - ICD9: 374.30, ICD10: H02.402 Otherwise neurologically intact on exam. Recommend close followup with eye doctor. RENETTA [facility]04-14-[address]a [facility] June 04, 2022 1:18pm Note Date/Time June 04, 2022 1:1 8pm [facility] Medical Records Department [address] [place] [address] Progress Note - Infect Disease 06/04/227 MR#: [id number] Acct: [id number] Name: MARK ANDERSON Rep #:[id number] : 1960 62 From: Herb pond MD PCP: Dr. Violetta Mcfarlane MD Status:ADM IN Location: [place] [address] Physical Exam Narrative Feeling a little better, no fever, no nausea, chest less sore. Some mild itching. Const alert and no apparent distress Resp normal air movement and clear to auscultation bilaterally Cardio regular rate and regular rhythm GI soft to palpation, non-tender and non-distended Skin Skin Narrative: L chest and abd erythema no longer spreading, less raised ID ID: Route of nutrition/ use of supplements: [] Nutritional Intake: [] IV Site: [] Andrews Catheter: [] Assessment & Plan Assessment/Plan (1) Cellulitis of chest wall: PLAN: Seems consistent with erysipelas, concern for strep. Cont with vanc/ceftriaxone and monitor for cross reaction with PCN allergy. Will follow (2) Immunocompromised: 06/04/22 1318 <Electronically signed by Herb Valenzuela MD> Cosigner Signature (if applicable): CC: ~ Signed [facility] Work Phone: 1(352) 852-811404-13-[address] [facility] June 03, 2022 7:08pm Note Date/Time June 03, 2022 7:0 8pm [facility] Medical Records Department [address] [place] [address] Progress Note - Hospitalist 06/03/221901 MR#: [id number] Acct: [id number] Name: MARK ANDERSON Rep #:[id number] : 1960 62 From: Peterson Cordoba DO PCP: Dr. Violetta Mcfarlane MD Status:ADM IN Location: [place] [address] Reason for Visit Reason for Visit: Diagnoses Immunodeficiency, unspecified (06/02/22) Cellulitis of chest wall (06/02/22) Subjective Subjective Patient was seen and examined today, I had infectious diseases see the patient today for evaluation of her antibiotic coverage, I talked briefly with infectious diseases and they took the patient off clindamycin. The area under the patient's left breast remains reddened and indurated at this time. Objective Data Objective Data Vital Signs: Vital Signs Temp Pulse Resp BP Pulse Ox O2 Del Method 99.1 F 99 16 100/54 L 97 Room Air 06/03/22 16:50 06/03/22 16:50 06/03/22 16:50 06/03/22 16:50 06/03/22 16:50 06/03/22 16:50 Oxygen Delivery Method Room Air Weight: 73.043 kg Body Mass Index (BMI) 30.4 Intake & Output: Intake and Output for Last 24 Hours 06/01/22 06/02/22 06/03/22 23:59 23:59 23:59 Intake Total 675 / 675 2707.91 / 2707.91 Balance 675 / 675 2707.91 / 2707.91 Lab / Micro Data Result Diagrams: 06/03/22 05:15 06/03/22 05:15 Labs: Laboratory Results - last 24 hr 06/03/22 05:15: WBC 6.5, RBC 3.88 L, Hgb 12.5, Hct 38.6, MCV 99.5 H, MCH 32.2 H,MCHC 32.4, RDW Std Deviation 46.3 H, RDW Coeff of Cathy 12.7, Plt Count 121 L, MPV10.3, Immature Gran % (Auto) 0.500, Neut % (Auto) 91.3 H, Lymph % (Auto) 6.0 L, Hamlin % (Auto) 2.0, Eos % (Auto) 0.0, Baso % (Auto) 0.2, Absolute Neuts (auto) 6.0, Absolute Lymphs (auto) 0.39 L, Nucleated RBC % 0, Differential Comment SCANNED 06/03/22 05:15: Sodium 134 L, Potassium 3.3 L, Chloride 107, Carbon Dioxide 21.0, Anion Gap 6, BUN 16, Creatinine 1.39 H, Estim Creat Clear Calc 32.48, Est GFR (MDRD) Af Amer 50 L, Est GFR (MDRD) Non-Af 41 L, BUN/Creatinine Ratio 11.5, Glucose 124 H, Calcium 8.3 L, Total Bilirubin 0.50, AST 22, ALT 27, Alkaline Phosphatase 57, Total Protein 5.6 L, Albumin 2.7 L, Globulin 2.9, Albumin/Globulin Ratio 0.9 Rhythm Strip Rhythm Strip: Sinus Tach Rate: 106 Ectopy: None Physical Exam Const alert, oriented x3, no apparent distress, average body habitus and healthy appearing General Appearance: cooperative, well kempt and well developed Orientation / Consciousness: awake, oriented to person, oriented to place and oriented to time HEENT normocephalic, head/scalp atraumatic and moist oral mucous membranes Eyes PERRL, EOMs intact bilaterally and conjunctivae normal Neck supple, no JVD, thyroid normal and no carotid bruits General: trachea midline Resp normal respiratory effort and clear to auscultation bilaterally Auscultation: Negative for rales, rhonchi or wheezes Cardio regular rate, regular rhythm, no murmurs, no rub and no gallops GI normal to inspection, nondistended, normoactive bowel sounds, soft to palpation,non-tender and non-distended Extremity no clubbing, cyanosis or edema Skin Skin Narrative: The area under the patient's left breast area is indurated and reddened, this area is extensive and is several centimeters in diameter by several centimeters in width, there is a small break in the skin over the midportion of this area, there is no visible purulent drainage however. Neuro oriented x3, CN's II-XII intact bilaterally, moves all extremities, no focal motor deficits and no sensory deficits noted Sensorium / Orientation: awake, alert, oriented to person, oriented to place andoriented to time Speech: speech normal Psych affect normal Assessment & Plan Assessment/Plan (1) Cellulitis of chest wall: PLAN: Plan 1. Cellulitis of the left chest wall-antibiotic coverage per infectious diseases at this time #2 essential hypertension-patient will remain on her current medications #3 chronic depression-patient will remain on Lexapro #4 connective tissue disease-patient states she sees a pocket secretary assembler for Sjogren's syndrome and polyarthropathy, she takes methotrexate, this is being held at this time Total clinical time spent by myself addressing the patient's medical problems, reviewing all of her data, and collaborating with patient's care team: 35 minutes Charges/Coding Visit Charges Inpatient E&M: 42357 Subs Hosp L2 06/03/221907 <Electronically signed by Peterson Cordoba DO> Cosigner Signature (if applicable): CC: ~ Signed [facility] Work Phone: 1(401) 814-258104-13-[address] [facility] June 03, 2022 3:21pm Note Date/Time June 02, 2022 11: 19am [facility] Medical Records Department [address] [place] [address] Emergency Department Summary 06/02/22 MR#: [id number] Acct: [id number] Name: MARK ANDERSON Rep #:[id number] : 1960 62 From: Zachery Vanegas MD PCP: Dr. Violetta Mcfarlane MD Status:ADM IN Location: [place] [address] HPI History of Present Illness Chief Complaint: Chest Pain Detail of Chief Complaint: Left chest wall pain with a tender red rash. Informant: patient and family Onset/Context/Timing Onset: Today and Hours Context: Gradual Onset Timing: Continuous Current Severity: Mild Maximum Severity: Mild Narrative Narrative: 62-year-old female history of an inflammatory polyarthropathy and Sjogren's. States she started having left chest wall pain that hurts to touch this morning. Associated nausea. No vomiting. No diarrhea. No fever. She has no history of coronary disease with prior AZ. She had a prior heart cath within the last 6months which showed no blockage according to her. She has never had a DVT or PE. She states she noticed a red rash on her chest wall this morning also. Prior similar symptoms: No Recent Illness/Hospitalization: No PFSH PFSH Medical History Acute postoperative anemia due to expected blood loss Alcohol use Anemia Chronic neck pain Chronic thoracic back pain Diastasis of rectus abdominis Drug-induced pruritus Elective procedure for unacceptable cosmetic appearance Excessive and redundant skin and subcutaneous tissue Excessive body weight loss Family history of breast cancer Fatigue Former smoker Hemorrhoids HLD (hyperlipidemia) Hydronephrosis with urinary obstruction due to renal calculus Intertrigo Irritable bowel syndrome Left ureteral stone Macromastia Migraine headache Restless legs Shoulder pain Tachycardia UTI (urinary tract infection) Wears glasses Home Medications trazodone 100 mg tablet 150 mg PO QHS SLEEP 07/15/20 [History Last Taken 06/01/22] diltiazem HCl 120 mg capsule,extended release 24 hr 120 mg PO DAILY #30 caps 03/05/22 [Rx Last Taken Unknown] escitalopram oxalate 10 mg tablet 10 mg PO QHS 06/02/22 [History Last Taken 06/01/22] folic acid 1 mg tablet 1 mg PO BID supplement 06/02/22 [History Last Taken 3 Days Ago ~05/30/22] linaclotide 72 mcg capsule (Linzess) 72 mcg PO DAILY IRRITABLE BOWELS 06/02/22 [History Last Taken 3 Days Ago ~05/30/22] methotrexate sodium 2.5 mg tablet 12.5 mg PO SA 06/02/22 [History Last Taken 05/29/22] ondansetron 8 mg disintegrating tablet 5 mg PO DAILY NAUSEA 06/02/22 [History Last Taken Unknown] semaglutide (weight loss) 0.25 mg/0.5 mL subcutaneous pen injector 0.25 mg subcut QWEEK 06/02/22 [History Last Taken Unknown] topiramate 25 mg tablet 25 mg PO QHS MOOD 06/02/22 [History Last Taken 06/01/22] Allergy/AdvReac Type Severity Reaction Status Date / Time clindamycin [From Cleocin] Allergy Mild itching Verified 06/02/22 10:25 amoxicillin Allergy Rash Verified 06/02/22 10:25 hydrocodone [From Vicodin] Allergy Rash Verified 06/02/22 10:25 hydromorphone [From Dilaudid] AdvReac Other Verified 06/02/22 10:25 sulfamethoxazole AdvReac Nausea Verified 06/02/22 10:25 [From Bactrim] trimethoprim [From Bactrim] AdvReac Nausea Verified 06/02/22 10:25 Family History Daughter Cancer Thyroid cancer Asthma Father Cancer bone Alcoholism Mother Hypertension Thyroid disorder Dementia CAD (coronary artery disease) Sister Anemia Grandmother Cancer colon, breast Brother Alcoholism Dementia Frontal lobe Other Family history of breast cancer Surgical History History of abdominoplasty History of ear surgery History of left heart catheterization Hx of section Hx of cystoscopy (~11/17/16) Hx of tubal ligation Status post bilateral breast reduction Social History household members: spouse current occupational status: employed and retired 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 Red rash. Review of Systems ROS Unobtainable: Denies due to encephalopathy Constitutional Constitutional ED: Denies chills or fever(s) Eyes Eyes: Denies blurry vision ENT ENT ED: Denies ear pain Cardiovascular Cardiovascular: Reports chest pain Respiratory/Chest Respiratory/Chest: Denies cough or dyspnea Gastrointestinal Gastrointestinal: Reports nausea; Denies abdominal pain, diarrhea or vomiting Genitourinary Genitourinary ED: Denies dysuria or hematuria Musculoskeletal Musculoskeletal: Denies arthralgias Integumentary Denies abscess Neurologic Neurologic: Denies headache(s) Psychiatric Psychiatric: Denies anxiety or depression Hematologic/Lymphatic Hematologic/Lymphatic: Reports none Allergic/Immunologic Allergic/Immunologic ED: Denies mouth swelling or tongue swelling EXAM Physical Exam Narrative Exam Narrative: 8-year-old female no acute distress. Vital signs stable afebrile. Pulse ox 97%room air no signs hypoxia. H EENT exam unremarkable. Neck nontender no JVD. No lymphadenopathy. Lungs clear to auscultation bilaterally. Heart tachycardicrate about 150 no murmur. Chest wall her left lower breast left chest wall and left lateral rib cage has a rectangular area probably 6 inches wide and 8 to 10 inches in length of cellulitis. There is no crepitance or subcu air. There is no necrotic tissue. It is mildly tender to touch. This is cellulitis and not shingles. At this time it does not extend into her back or right chest wall. Abdomen soft nontender. Normal bowel sounds. No peritoneal signs. Moving all 4 extremities. Calves are nontender without edema or cords. Neurologic exam she is awake alert with no focal motor deficits. Const Vital Signs: 06/02/22 10:23 06/02/22 10:32 06/02/22 11:03 Temperature 98.5 F Temperature Source Temporal Pulse Rate 119 H Respiratory Rate 16 Respiratory Effort Normal Non-Labored Blood Pressure 120/100 H Blood Pressure Mean 106 Pulse Ox 97 97 Oxygen Delivery Method Room Air Room Air 06/02/22 11:29 Temperature Temperature Source Pulse Rate 97 Respiratory Rate 14 Respiratory Effort Blood Pressure 110/84 H Blood Pressure Mean 92 Pulse Ox 95 Oxygen Delivery Method Room Air Positive well nourished and well developed; Negative for obese, cachectic, contractures or unkempt General Appearance ED: well developed and NAD; Negative for unkempt, cachectic, contractures, cyanotic, diaphoretic or pallor Nutritional Appearance: Negative for cachectic or obese HEENT Reports moist mucous membranes; Denies dry mucous membranes Negative for trauma or tenderness Mouth ED: No dry mucous membranes Mouth: No dry mucous membranes Eyes PERRL and EOMs intact bilaterally General Eye ED: Negative for pale conjunctiva or scleral icterus Neck no lymphadenopathy, supple and no JVD General: Negative for tenderness Lymph Lymphatic: Negative for other Chest Wall Negative for inspection of chest normal or palpation of chest normal Chest Narrative: Rash consistent with cellulitis left lower chest wall left lower breast and leftlateral rib cage. Approximately 6 inches in width and 8 to 10 inches in length. No blisters. No shingles. No crepitance. Chest: Negative for other Resp normal respiratory effort and clear to auscultation bilaterally Effort and Inspection: Negative for retractions Auscultation: Negative for rales, rhonchi or wheezes Cardio regular rhythm, S1 normal heart sound, S2 normal heart sound and no murmurs; Negative for regular rate Rate: tachycardic Rhythm: Negative for abnormal rhythm GI normal to inspection, nondistended, normoactive bowel sounds, non-tender and non-distended Inspection: Negative for abdominal distention Auscultation: normoactive bowel sounds Palpation: soft; Negative for tender or guarding Back/Spine no CVA tenderness General Back: Negative for CVA tenderness Cervical Spine: Negative for cervical spine tenderness Thoracic Spine / Upper Back: Negative for thoracic spinal tenderness Extremity normal to inspection General Extremety ED: Negative for edema or tenderness General Extremity: Negative for edema Neuro oriented x3 and CN's II-XII intact bilaterally Sensorium / Orientation: alert; Negative for orientation impaired Sensory Exam: No sensory level loss detected Motor Exam: strength 5/5 throughout Psych mental status grossly normal Appearance: Negative for unkempt Attitude: No agitated Mood & Affect: Negative for depressed, anxious or tearful Skin No no rashes or lesions noted, no wounds and skin turgor normal General Skin Exam: Negative for jaundice or pallor Lesions: No lesion noted Rashes: rashes noted Trauma: Negative for abrasion Wounds: Negative for wounds noted MDM MDM MDM Narrative Medical decision making narrative: 62-year-old female with a known inflammatory poly arthropathy with cellulitis ofher left chest wall. She is allergies to penicillin will be started on IV clindamycin. They had clindamycin listed as allergy but she denies that. And cannot member any problem of her with that medication. We will do screening labs. She initially came in his chest pain even though this is chest wall pain and obvious soft tissue infection. Started on IV clindamycin morphine for pain and Zofran. Repeat exam patient is doing well at 12:40 PM. The rash is more painful. I do not see any necrotic tissue. I do not feel any subcu air. I am obtaining a CATscan to rule out necrotizing fasciitis which I do not clinically think this is Ithink it is cellulitis. It is not gotten significantly worse since my initial evaluation of her. She stefanie receive IV clindamycin. I will speak to hospitalistabout admission. History & Record Review Discussion w/independent historian: Patient and Family Lab Data Attestation: I reviewed the patient's lab results. Lab results narrative: CBC normal white count 9.9. H&H 14.4 and 44. Platelets 183. Chemistry is unremarkable gap 1. BUN of 12 creatinine 1. Glucose 108. Chest x-ray unremarkable. CT abdomen to evaluate for subcu air is unremarkable. Awaiting radiology formal interpretation. Labs: Laboratory Results - last 24 hr 06/02/22 06/02/22 10:55 10:55 WBC 9.9 RBC 4.53 Hgb 14.4 Hct 44.1 MCV 97.4 MCH 31.8 MCHC 32.7 RDW Std Deviation 44.5 H RDW Coeff of Cathy 12.6 Plt Count 183 MPV 10.3 Immature Gran % (Auto) 0.500 Neut % (Auto) 85.0 H Lymph % (Auto) 9.8 L Hamlin % (Auto) 4.1 Eos % (Auto) 0.4 Baso % (Auto) 0.2 Absolute Neuts (auto) 8.4 H Absolute Lymphs (auto) 0.97 Nucleated RBC % 0 Sodium 137 Potassium 3.5 Chloride 113 H Carbon Dioxide 23.0 Anion Gap 1 L BUN 12 Creatinine 1.07 H Estim Creat Clear Calc 42.19 Est GFR (MDRD) Af Amer 67 Est GFR (MDRD) Non-Af 56 L BUN/Creatinine Ratio 11.2 Glucose 108 H Calcium 9.4 Radiography Chest X-Ray - ED: 1 View, Read by ED Physician, Normal, Heart, Lungs, Mediastinum, Bony Structures and No Acute Disease Diagnostic Testing: Clinical Impression(s) from Imaging Studies Chest X-Ray 06/02/22 10:55 IMPRESSION: No acute thoracic pathology. Electronically Signed: Joo Melissa MD at 11:09 EDT , Chest x-ray, portable, single view, interpreted by the myself and the radiologist shows no acute abnormality. Normal cardiac silhouette mediastinum. Rhythm Strip Rhythm Strip: Sinus Tach Rate: 106 Ectopy: None EKG Initial EKG: Attestation: I personally reviewed and interpreted this EKG as follows: Interpretation: No Acute Injury Pattern and Sinus Tachycardia Comments: Sinus tachycardia rate of 106 no acute signs of AZ or ischemia. Discharge Plan Dx/Rx/DC Orders Clinical Impression: Cellulitis of chest wall, Immunocompromised Disposition Disposition: Acute Care Hospital [facility] What to do if you have Problems For any increased pain, shortness of breath, bleeding, nausea or vomiting, chestpain, or any unexpected problems, contact your Primary Care Provider. Call [employer] [facility] ([phone]) or report to the closest Emergency Room. Call 911 if necessary. 06/03/22 1521 <Electronically signed by Zachery Vanegas MD> Cosigner Signature (if applicable): CC: Dr. Violetta Mcfarlane MD ~ Signed [facility] Work Phone: [phone]) [phone]a [facility] June 03, 2022 10:43am Note Date/Time June 03, 2022 10: 43am [facility] Medical Records Department [address] [place] [address] Consultation - Infectious Dx 06/03/22 1039 MR#: [id number] Acct: [id number] Name: MARK ANDERSON Rep #:[id number] : 1960 62 From: Herb pond MD PCP: Dr. Violetta Mcfarlane MD Status:ADM IN Location: [place] [address] Assessment & Plan Assessment/Plan (1) Cellulitis of chest wall: PLAN: Seems consistent with erysipelas, concern for strep. Will treat with vanc/ceftriaxone and monitor for cross reaction with PCN allergy. Will follow, thank you, dw primary team (2) Immunocompromised: HPI Consult Data Date of Consult: 06/03/22 HPI Narrative Reason for Consultation: cellulitis HPI Narrative: MARK ANDERSON, is a 62 F on methotrexate for sjogren's and polyarthropathy, presented 06/02 with one day h/o rapidly progressive L chest/abd redness, pain, swelling, and tenderness. No fever or chills. Had been picking at a mole on that side. No prior h/o cellulitis or skin abscess. Came to ED, admitted on vanc/clinda. Some nausea. Some itching. Redness cont to spread this AM. Reports hives with PCN and amox. Full ROS performed and neg except as noted above. [facility] Medical History Acute postoperative anemia due to expected blood loss Alcohol use Anemia Anxiety Chest pain Chronic neck pain Chronic thoracic back pain Diastasis of rectus abdominis Drug-induced pruritus Elective procedure for unacceptable cosmetic appearance Excessive and redundant skin and subcutaneous tissue Excessive body weight loss Family history of breast cancer Fatigue Former smoker Hemorrhoids HLD (hyperlipidemia) Hydronephrosis with urinary obstruction due to renal calculus Intertrigo Irritable bowel syndrome Kidney stones Left ureteral stone Macromastia Migraine headache Restless legs Shoulder pain Tachycardia UTI (urinary tract infection) Wears glasses Home Medications trazodone 100 mg tablet 150 mg PO QHS SLEEP 07/15/20 [History Last Taken 06/01/22] diltiazem HCl 120 mg capsule,extended release 24 hr 120 mg PO DAILY #30 caps 03/05/22 [Rx Last Taken Unknown] escitalopram oxalate 10 mg tablet 10 mg PO QHS 06/02/22 [History Last Taken 06/01/22] folic acid 1 mg tablet 1 mg PO BID supplement 06/02/22 [History Last Taken 3 Days Ago ~05/30/22] linaclotide 72 mcg capsule (Linzess) 72 mcg PO DAILY IRRITABLE BOWELS 06/02/22 [History Last Taken 3 Days Ago ~05/30/22] methotrexate sodium 2.5 mg tablet 12.5 mg PO SA 06/02/22 [History Last Taken 05/29/22] ondansetron 8 mg disintegrating tablet 5 mg PO DAILY NAUSEA 06/02/22 [History Last Taken Unknown] semaglutide (weight loss) 0.25 mg/0.5 mL subcutaneous pen injector 0.25 mg subcut QWEEK 06/02/22 [History Last Taken Unknown] topiramate 25 mg tablet 25 mg PO QHS MOOD 06/02/22 [History Last Taken 06/01/22] Allergy/AdvReac Type Severity Reaction Status Date / Time clindamycin [From Cleocin] Allergy Mild itching Verified 06/02/22 10:25 amoxicillin Allergy Rash Verified 06/02/22 10:25 hydrocodone [From Vicodin] Allergy Rash Verified 06/02/22 10:25 hydromorphone [From Dilaudid] AdvReac Other Verified 06/02/22 14:21 sulfamethoxazole AdvReac Nausea Verified 06/02/22 10:25 [From Bactrim] trimethoprim [From Bactrim] AdvReac Nausea Verified 06/02/22 10:25 Family History Daughter Cancer Thyroid cancer Asthma Father Cancer bone Alcoholism Mother Hypertension Thyroid disorder Dementia CAD (coronary artery disease) Sister Anemia Grandmother Cancer colon, breast Brother Alcoholism Dementia Frontal lobe Other Family history of breast cancer Surgical History History of abdominoplasty History of ear surgery History of left heart catheterization Hx of section Hx of cystoscopy (~11/17/16) Hx of tubal ligation Status post bilateral breast reduction Social History household members: spouse current occupational status: employed and retired 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, 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 Smoking Status: Former smoker quit date: 02/21/89 pack-years: 20 Electronic Cigarette Use: not used second hand exposure: No alcohol intake: former details: never a heavy drinker substance use type: does not use caffeine: No what type of physical activity do you participate in: none frequency: does not exercise seatbelt use: always do you feel safe at home: Yes additional social history: Does Not take Aspirin Does take Ibuprofen as needed Physical Exam Const alert, oriented x3 and no apparent distress General Appearance: cooperative HEENT normocephalic and head/scalp atraumatic Eyes PERRL and EOMs intact bilaterally Neck supple and No nodes Resp normal air movement and clear to auscultation bilaterally Cardio regular rate and regular rhythm GI soft to palpation, non-tender and non-distended Extremity General Extremity: Negative for edema Skin Skin Narrative: L chest/abd/flank raised mildly tender and warmth erythema Neuro CN's II-XII intact bilaterally Lab / Micro Data Attestation: I reviewed the patient's lab results. Result Diagrams: 06/03/22 05:15 06/03/22 05:15 Labs: Laboratory Results - last 24 hr 06/02/22 10:55: WBC 9.9, RBC 4.53, Hgb 14.4, Hct 44.1, MCV 97.4, MCH 31.8, MCHC 32.7, RDW Std Deviation 44.5 H, RDW Coeff of Cathy 12.6, Plt Count 183, MPV 10.3, Immature Gran % (Auto) 0.500, Neut % (Auto) 85.0 H, Lymph % (Auto) 9.8 L, Hamlin %(Auto) 4.1, Eos % (Auto) 0.4, Baso % (Auto) 0.2, Absolute Neuts (auto) 8.4 H, Absolute Lymphs (auto) 0.97, Nucleated RBC % 0 06/02/22 10:55: Sodium 137, Potassium 3.5, Chloride 113 H, Carbon Dioxide 23.0, Anion Gap 1 L, BUN 12, Creatinine 1.07 H, Estim Creat Clear Calc 42.19, Est GFR (MDRD) Af Amer 67, Est GFR (MDRD) Non-Af 56 L, BUN/Creatinine Ratio 11.2, Glucose 108 H, Calcium 9.4 06/02/22 10:55: ESR 4 06/02/22 10:55: C-React Prot Ext Range < 2.90 06/03/22 05:15: WBC 6.5, RBC 3.88 L, Hgb 12.5, Hct 38.6, MCV 99.5 H, MCH 32.2 H,MCHC 32.4, RDW Std Deviation 46.3 H, RDW Coeff of Cathy 12.7, Plt Count 121 L, MPV10.3, Immature Gran % (Auto) 0.500, Neut % (Auto) 91.3 H, Lymph % (Auto) 6.0 L, Hamlin % (Auto) 2.0, Eos % (Auto) 0.0, Baso % (Auto) 0.2, Absolute Neuts (auto) 6.0, Absolute Lymphs (auto) 0.39 L, Nucleated RBC % 0, Differential Comment SCANNED 06/03/22 05:15: Sodium 134 L, Potassium 3.3 L, Chloride 107, Carbon Dioxide 21.0, Anion Gap 6, BUN 16, Creatinine 1.39 H, Estim Creat Clear Calc 32.48, Est GFR (MDRD) Af Amer 50 L, Est GFR (MDRD) Non-Af 41 L, BUN/Creatinine Ratio 11.5, Glucose 124 H, Calcium 8.3 L, Total Bilirubin 0.50, AST 22, ALT 27, Alkaline Phosphatase 57, Total Protein 5.6 L, Albumin 2.7 L, Globulin 2.9, Albumin/Globulin Ratio 0.9 Rhythm Strip Rhythm Strip: Sinus Tach Rate: 106 Ectopy: None Radiology Impression Chest X-Ray 06/02/22 10:55 IMPRESSION: No acute thoracic pathology. Electronically Signed: Joo Melissa MD at 11:09 EDT , Abdomen CT 06/02/22 12:50 IMPRESSION: No suspicious solid organ and amount, simple hepatic cysts, no specific follow-up needed Stable nonspecific extrahepatic common bile duct dilatation at 7.5 mm but no obstructing stone is noted. No free peritoneal fluid, air, or suspicious adenopathy No significant interval change Electronically Signed: Leonardo Wan MD at 13:28 EDT , 06/03/22 1043 <Electronically signed by Herb Valenzuela MD> Cosigner Signature (if applicable): CC: Dr. Violetta Mcfarlane MD; Dr. Quiana Dodd MD; Dr. Zachery Vanegas MD; Dr. Herb Valenzuela MD~ Signed [facility] Work Phone: [phone]) 875-467404-12-2023 History and physical note Author Dr. Dodd [facility] June 02, 2022 7:41pm Note Date/Time June 02, 2022 2:[address] [facility] Medical Records Department [address] [place] [id number] History & Physical Exam 06/02/22 1410 MR#: [id number] Acct: [id number] Name: MARK ANDERSON Rep #:[id number] : 1960 62 From: Quiana Braswell PCP: Dr. Violetta Mcfarlane MD Status:ADM IN Location: [place] [address] HPI - General General Date of Admission: 06/02/22 Date of Service: 06/02/22 Chief Complaint: Pain, redness and swelling involving the left upper chest and upper abdomen x1 day HPI Narrative MARK ANDERSON, is a 62 F with a history of depression and anxiety, Sjogren's syndrome and inflammatory polyarthropathy for which she was recently started on methotrexate about 2 weeks ago. Presented to the hospital with 1 day history ofpain, redness and swelling and exquisite tenderness involving the left lower chest, lower breast and upper abdomen and flank. Patient has a mole in the center of this area which she has been picking and she believes this may have been the inciting event. Denies any fever denies any chills per se. States shealways feels cold. Denies any nausea or vomiting. [facility] Medical History Acute postoperative anemia due to expected blood loss Alcohol use Anemia Chronic neck pain Chronic thoracic back pain Diastasis of rectus abdominis Drug-induced pruritus Elective procedure for unacceptable cosmetic appearance Excessive and redundant skin and subcutaneous tissue Excessive body weight loss Family history of breast cancer Fatigue Former smoker Hemorrhoids HLD (hyperlipidemia) Hydronephrosis with urinary obstruction due to renal calculus Intertrigo Irritable bowel syndrome Left ureteral stone Macromastia Migraine headache Restless legs Shoulder pain Tachycardia UTI (urinary tract infection) Wears glasses Home Medications trazodone 100 mg tablet 150 mg PO QHS SLEEP 07/15/20 [History Last Taken 06/01/22] diltiazem HCl 120 mg capsule,extended release 24 hr 120 mg PO DAILY #30 caps 03/05/22 [Rx Last Taken Unknown] escitalopram oxalate 10 mg tablet 10 mg PO QHS 06/02/22 [History Last Taken 06/01/22] folic acid 1 mg tablet 1 mg PO BID supplement 06/02/22 [History Last Taken 3 Days Ago ~05/30/22] linaclotide 72 mcg capsule (Linzess) 72 mcg PO DAILY IRRITABLE BOWELS 06/02/22 [History Last Taken 3 Days Ago ~05/30/22] methotrexate sodium 2.5 mg tablet 12.5 mg PO SA 06/02/22 [History Last Taken 05/29/22] ondansetron 8 mg disintegrating tablet 5 mg PO DAILY NAUSEA 06/02/22 [History Last Taken Unknown] semaglutide (weight loss) 0.25 mg/0.5 mL subcutaneous pen injector 0.25 mg subcut QWEEK 06/02/22 [History Last Taken Unknown] topiramate 25 mg tablet 25 mg PO QHS MOOD 06/02/22 [History Last Taken 06/01/22] Allergy/AdvReac Type Severity Reaction Status Date / Time clindamycin [From Cleocin] Allergy Mild itching Verified 06/02/22 10:25 amoxicillin Allergy Rash Verified 06/02/22 10:25 hydrocodone [From Vicodin] Allergy Rash Verified 06/02/22 10:25 hydromorphone [From Dilaudid] AdvReac Other Verified 06/02/22 14:21 sulfamethoxazole AdvReac Nausea Verified 06/02/22 10:25 [From Bactrim] trimethoprim [From Bactrim] AdvReac Nausea Verified 06/02/22 10:25 Family History Daughter Cancer Thyroid cancer Asthma Father Cancer bone Alcoholism Mother Hypertension Thyroid disorder Dementia CAD (coronary artery disease) Sister Anemia Grandmother Cancer colon, breast Brother Alcoholism Dementia Frontal lobe Other Family history of breast cancer Surgical History History of abdominoplasty History of ear surgery History of left heart catheterization Hx of section Hx of cystoscopy (~11/17/16) Hx of tubal ligation Status post bilateral breast reduction Social History household members: spouse current occupational status: employed and retired 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 Denies any nausea vomiting. All other systems reviewed and essentially negative as above in the part of the history. Vital Signs Vital Signs Vital Signs: 06/02/22 10:23 06/02/22 10:32 06/02/22 11:03 Temperature 36.9 C Temperature Source Temporal Pulse Rate 119 H Respiratory Rate 16 Respiratory Effort Normal Non-Labored Blood Pressure 120/100 H Blood Pressure Mean 106 Pulse Ox 97 97 Oxygen Delivery Method Room Air Room Air 06/02/22 11:29 06/02/22 13:21 Temperature 36.6 C Temperature Source Temporal Pulse Rate 97 98 Respiratory Rate 14 14 Respiratory Effort Blood Pressure 110/84 H 121/61 H Blood Pressure Mean 92 81 Pulse Ox 95 98 Oxygen Delivery Method Room Air Room Air Weight Weight: 72.575 kg Body Mass Index (BMI) 30.2 Physical Exam Narrative General exam. Middle-aged man, acutely ill-appearing, anxious appearing, in painful distress HEENT. Oral mucosa dry, no pallor or jaundice. Neck. Neck Supple. Lungs. Clear to auscultation, nonlabored breathing Heart. First and second heart sounds heard no murmurs. Abdomen. Moves with respiration. Skin. Area of induration, redness, exquisite tenderness and hypersensitivity, swelling and warmth extending from the lower chest and upper abdomen anteriorly and extending to the left flank. 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 Conscious alert and oriented x3. Cranial nerves II 12 grossly intact Extremities. No pedal edema. All other organ systems examined and essentially normal. Results Medical Records Data Attestation: I reviewed the patient's medical records Lab / Micro Data Attestation: I reviewed the patient's lab results. Lab results narrative: No leukocytosis noted and all other blood tests largely normal. Result Diagrams: 06/02/22 10:55 06/02/22 10:55 Labs: Laboratory Results - last 24 hr 06/02/22 10:55: WBC 9.9, RBC 4.53, Hgb 14.4, Hct 44.1, MCV 97.4, MCH 31.8, MCHC 32.7, RDW Std Deviation 44.5 H, RDW Coeff of Cathy 12.6, Plt Count 183, MPV 10.3, Immature Gran % (Auto) 0.500, Neut % (Auto) 85.0 H, Lymph % (Auto) 9.8 L, Hamlin %(Auto) 4.1, Eos % (Auto) 0.4, Baso % (Auto) 0.2, Absolute Neuts (auto) 8.4 H, Absolute Lymphs (auto) 0.97, Nucleated RBC % 0 06/02/22 10:55: Sodium 137, Potassium 3.5, Chloride 113 H, Carbon Dioxide 23.0, Anion Gap 1 L, BUN 12, Creatinine 1.07 H, Estim Creat Clear Calc 42.19, Est GFR (MDRD) Af Amer 67, Est GFR (MDRD) Non-Af 56 L, BUN/Creatinine Ratio 11.2, Glucose 108 H, Calcium 9.4 Rhythm Strip Rhythm Strip: Sinus Tach Rate: 106 Ectopy: None Radiology Impression Chest X-Ray 06/02/22 10:55 IMPRESSION: No acute thoracic pathology. Electronically Signed: Joo Melissa MD at 11:09 EDT , Abdomen CT 06/02/22 12:50 IMPRESSION: No suspicious solid organ and amount, simple hepatic cysts, no specific follow-up needed Stable nonspecific extrahepatic common bile duct dilatation at 7.5 mm but no obstructing stone is noted. No free peritoneal fluid, air, or suspicious adenopathy No significant interval change Electronically Signed: Leonardo Wan MD at 13:28 EDT , Assessment & Plan Assessment/Plan (1) Cellulitis of chest wall: (2) Immunocompromised: PLAN: Plan 1. Chest wall cellulitis. Start on IV antibiotics with IV clindamycin 600 mg every 8 hours and vancomycin 1 g every 12 hours. Multimodal analgesics for optimal pain control. 2. Inflammatory polyarthropathy. Patient on methotrexate for this and so relatively immunocompromised. We will hold methotrexate for now. Can resume after resolution of infection. 3. Anxiety and depression. Continue antidepressant therapy. Charges/Coding Visit Charges Inpatient E&M: 23295 Init Hosp L3 06/02/22 1424 <Electronically signed by Quiana Dodd MD> Cosigner Signature (if applicable): CC: Dr. Violetta Mcfarlane MD; Dr. Quiana Dodd MD~ Signed ADDENDUM by Dr. Quiana Dodd MD on 06/02/22 at 1941 Visit Charges Inpatient E&M: 19513 Init Hosp L2 06/02/221940<Electronically signed by Quiana Dodd MD> Cosigner Signature (if applicable): cc: Dr. Violetta Mcfarlane MD; Dr. Quiana Dodd MD ~* Signed [facility] Work Phone: 1(989) 475-269503-22-2023 NoteHNO ID: [id number] Author: Awais Zhang MD Service: ? Author Type: Physician Type: Progress Notes Filed: 05/12/2022 10:45 AM Note Text: Patient presents with: Sinus Problem: Congestion, MATHEW x 15 days HPI: Feeling sick for 15 days. Positive symptoms: Cough, Wheezing, Sore throat, Sinus pressure, Nasal Congestion, Rhinorrhea, Post nasal drainage, Headache, Negative symptoms: Fever, Vomiting, Diarrhea, OTC: Lozenges, allergy medicine, vicks, tylenol History of migraine headaches. This does not feel similar. Home COVID tests were negative. MEDICATIONS: Current Outpatient Medications Medication Sig escitalopram oxalate (LEXAPRO) 10 mg tablet topiramate (TOPAMAX) 25 mg tablet Take 1 tablet by mouth once daily. metoprolol tartrate, short acting, (LOPRESSOR) 50 mg tablet Take 1 tablet by mouth twice daily. traZODone (DESYREL) 100 mg tablet Take 1.5 tablets by mouth daily at bedtime. GAVILYTE-G 236-22.74-6.74 -5.86 gram suspension (Patient not taking: Reported on 05/12/2022) No current facility-administered medications for this visit. ALLERGIES: ALLERGIES Allergen Reactions Amoxil [Amoxicillin] Rash, Hives, Itching Hydrocodone-Acetami* Rash, Hives, Itching, Mental Status Change Penicillins Hives, Itching, Rash Rosuvastatin Other: See Comments VITALS: BP 108/78 Pulse 77 Temp 36.7 ?C (98.1 ?F) Resp 21 Wt 77.1 kg (170 lb) SpO2 96% BMI 32.12 kg/m? PHYSICAL EXAM: GEN: mildly ill appearing HEENT: PERRL, EOMI, conjunctiva clear Ears: canals clear. TMs without erythema, bulge, or effusion Sinuses: tender frontal sinus, tender maxillary sinuses Throat: moist mucous membranes, mild erythema, no exudate Neck: supple, no thyromegaly, no lymphadenopathy HEART: regular rate and rhythm, no murmurs LUNGS: clear to auscultation, no wheezes or crackles, no increased WOB ASSESSMENT/PLAN: 1. Acute non-recurrent sinusitis, unspecified location - ICD9: 461.9, ICD10: J01.90 - Discussed supportive care treatment with rest, cold medicine, and analgesia. - DOXYCYCLINE MONOHYDRATE 100 MG TABLET Awais Zhang, [facility]01-11-2023 Miscellaneous Notes* Telephone Encounter - Josias De Dios LPN - 03/03/2022 2:14 PM EST Patient stated she was in the ER for severe constipation last night, patient stated they gave her colonoscopy prep to help, but she feels it is a blockage. This nurse advised for patient to schedule with Dr. Antonio for treatment if feels she needs to see him. Patient was transferred to schedule an appointment Josias De Dios LPN March 03, 2022 2:22 PM [facility] Miscellaneous Notes* Telephone Encounter - Danuta Barrera LPN - 02/01/2022 10:51 AM EST I spoke with patient Mark Anderson and advised her of all information and instructions per Zachery's note. Patient did voice understanding and is agreeable. Danuta Barrera LPN February 01, 2022 10:52 AM * Telephone Encounter - Kamaljit Brown APRN.[facility] - 01/29/2022 11:13 AM EST Please call and inform patient that her recent labs indicate and underactive thyroid. Patient to have repeat TSH, free T4, and TPO labs drawn in 2 weeks for reevaluation. Orders entered. Also, her liver enzymes are elevated. Patient to avoid alcohol and is to have repeat CMP in 2 weeksalong with thyroid labs. Orders entered. documented in [facility]12-[facility]-2022 NoteHNO ID: [id number] Author: Kamaljit Brown APRN.[facility] Service: ? Author Type: Nurse Practitioner Type: Progress Notes Filed: 01/28/2022 10:39 AM Note Text: This note was created using [employer]. Subjective Mark Anderson is a 62 year old female. Mark presents to the office today for a hospital follow up visit after being admitted to [facility] on 01/25/2022 and discharged on 01/27/2022 due to heart palpitations, shortness of breath, and migraines. Patient underwent a significant work up in the hospital, please see discharge summary for details. EKG and cardiac monitoring in hospital revealed sinus tachycardia with PVC's. Patient was initially found to have mild hypokalemia which may have contributed to palpitations. Patient was discharged from the hospital with metoprolol tartrate 50mg by mouth twice a day and topamax 25mg daily. Patient reports that since being discharged she has not been experiencing any chest pain, pressure, palpitations, racing heart beats, or shortness of breath. Patient reports that she does feel good. She was given referrals to follow up with cardiology, pulmonary for sleep apnea evaluation, and GI for colon cancer screening. Patient has not yet scheduled follow up visits with these specialists but she plans to call and schedule appointments with them. Patient would like to return to work and needs return to work paperwork completed. 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 Review of Systems Constitutional: Negative. HENT: Negative. Eyes: Negative. Respiratory: Negative. Cardiovascular: Negative. Gastrointestinal: Negative. Endocrine: Negative. Genitourinary: Negative. Musculoskeletal: Negative. Skin: Negative. Allergic/Immunologic: Negative. Neurological: Negative. Hematological: Negative. Psychiatric/Behavioral: Negative. Objective BP 120/86 (BP Site: Left Arm, BP Position: Sitting) Pulse 85 Temp 36.1 ?C (96.9 ?F) (Temporal) Resp 14 Ht 154.9 cm (5' 1) Wt 76.6 kg (168 lb 12.8 oz) SpO2 97% BMI 31.89 kg/m? Physical Exam Constitutional: General: She is not in acute distress. Appearance: Normal appearance. She is obese. She is not ill-appearing, toxic-appearing or diaphoretic. HENT: Head: Normocephalic and atraumatic. Right Ear: Tympanic membrane, ear canal and external ear normal. Left Ear: Tympanic membrane, ear canal and external ear normal. Nose: Nose normal. Mouth/Throat: Mouth: Mucous membranes are moist. Pharynx: Oropharynx is clear. Eyes: Extraocular Movements: Extraocular movements intact. Conjunctiva/sclera: Conjunctivae normal. Pupils: Pupils are equal, round, and reactive to light. Cardiovascular: Rate and Rhythm: Normal rate and regular rhythm. Pulses: Normal pulses. Heart sounds: Normal heart sounds. No murmur heard. Pulmonary: Effort: Pulmonary effort is normal. No respiratory distress. Breath sounds: Normal breath sounds. Abdominal: General: Bowel sounds are normal. There is no distension. Palpations: Abdomen is soft. Musculoskeletal: General: Normal range of motion. Cervical back: Normal range of motion and neck supple. No rigidity. Skin: General: Skin is warm and dry. Capillary Refill: Capillary refill takes less than 2 seconds. Neurological: General: No focal deficit present. Mental Status: She is alert and oriented to person, place, and time. Psychiatric: Mood and Affect: Mood normal. Behavior: Behavior normal. Thought Content: Thought content normal. Judgment: Judgment normal. Assessment and Plan ASSESSMENT/PLAN: 1. Sinus tachycardia by electrocardiography - ICD9: 785.0, ICD10: R00.0 (primary diagnosis) Symptoms have resolved. Patient as regular rate and rhythm per auscultation in office today. Patient to continue medications listed below. Obtain labs below. Patient to follow up with cardiology for further evaluation as instructed when discharged from [facility] - METOPROLOL TARTRATE 50 MG TABLET - CBC + DIFF - COMP METABOLIC PANEL - MAGNESIUM BLD - TSH BLD 2. PVC (premature ventricular contraction) - ICD9: 427.69, ICD10: I49.3 Symptoms have resolved. Patient to follow up with cardiology 3. Migraine without aura and without status migrainosus, not intractable - ICD9: 346.10, ICD10: G43.009 Symptoms have resolved. Continue medication as listed below - TOPIRAMATE 25 MG TABLET Kamaljit Brown APRN.[facility]12-08-2022 History of Present illness Narrative* Kamaljit Brown APRN.[facility] - 01/28/2022 10:30 AM EST This note was created using [employer]. Subjective Mark Anderson is a 62 year old female. Mark presents to the office today for a hospital follow up visit after being admitted to [facility] on 01/25/2022 and discharged on 01/27/2022 due to heart palpitations, shortness of breath, and migraines. Patient underwent a significant work up in the hospital, please see discharge summary for details. EKG and cardiac monitoring in hospital revealed sinus tachycardia with PVC's. Patient was initially found to have mild hypokalemia which may have contributed to palpitations. Patient was discharged from the hospital with metoprolol tartrate 50mg by mouth twice a day and topamax 25mg daily. Patient reports that since being discharged she has not been experiencing any chest pain, pressure, palpitations, racing heart beats, or shortness of breath. Patient reports that she does feel good. She was given referrals to follow up with cardiology, pulmonary for sleep apnea evaluation, and GI for colon cancer screening. Patient has not yet scheduled follow up visits with these specialists but she plans to call and schedule appointments with them. Patient would like to return to work and needs return to work paperwork completed. 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 Review of Systems Constitutional: Negative. HENT: Negative. Eyes: Negative. Respiratory: Negative. Cardiovascular: Negative. Gastrointestinal: Negative. Endocrine: Negative. Genitourinary: Negative. Musculoskeletal: Negative. Skin: Negative. Allergic/Immunologic: Negative. Neurological: Negative. Hematological: Negative. Psychiatric/Behavioral: Negative. Objective BP 120/86 (BP Site: Left Arm, BP Position: Sitting) Pulse 85 Temp 36.1 C (96.9 F) (Temporal) Resp 14 Ht 154.9 cm (5' 1) Wt 76.6 kg (168 lb 12.8 oz) SpO2 97% BMI 31.89 kg/m Physical Exam Constitutional: General: She is not in acute distress. Appearance: Normal appearance. She is obese. She is not ill-appearing, toxic- appearing or diaphoretic. HENT: Head: Normocephalic and atraumatic. Right Ear: Tympanic membrane, ear canal and external ear normal. Left Ear: Tympanic membrane, ear canal and external ear normal. Nose: Nose normal. Mouth/Throat: Mouth: Mucous membranes are moist. Pharynx: Oropharynx is clear. Eyes: Extraocular Movements: Extraocular movements intact. Conjunctiva/sclera: Conjunctivae normal. Pupils: Pupils are equal, round, and reactive to light. Cardiovascular: Rate and Rhythm: Normal rate and regular rhythm. Pulses: Normal pulses. Heart sounds: Normal heart sounds. No murmur heard. Pulmonary: Effort: Pulmonary effort is normal. No respiratory distress. Breath sounds: Normal breath sounds. Abdominal: General: Bowel sounds are normal. There is no distension. Palpations: Abdomen is soft. Musculoskeletal: General: Normal range of motion. Cervical back: Normal range of motion and neck supple. No rigidity. Skin: General: Skin is warm and dry. Capillary Refill: Capillary refill takes less than 2 seconds. Neurological: General: No focal deficit present. Mental Status: She is alert and oriented to person, place, and time. Psychiatric: Mood and Affect: Mood normal. Behavior: Behavior normal. Thought Content: Thought content normal. Judgment: Judgment normal. Assessment and Plan ASSESSMENT/PLAN: 1. Sinus tachycardia by electrocardiography - ICD9: 785.0, ICD10: R00.0 (primary diagnosis) Symptoms have resolved. Patient as regular rate and rhythm per auscultation in office today. Patient to continue medications listed below. Obtain labs below. Patient to follow up with cardiology for further evaluation as instructed when discharged from [facility] - METOPROLOL TARTRATE 50 MG TABLET - CBC + DIFF - COMP METABOLIC PANEL - MAGNESIUM BLD - TSH BLD 2. PVC (premature ventricular contraction) - ICD9: 427.69, ICD10: I49.3 Symptoms have resolved. Patient to follow up with cardiology 3. Migraine without aura and without status migrainosus, not intractable - ICD9: 346.10, ICD10: G43.009 Symptoms have resolved. Continue medication as listed below - TOPIRAMATE 25 MG TABLET Kamaljit Brown APRN.CNP [facility] Instructions* Patient Instructions* Kamaljit Brown APRN.CNP - 01/28/2022 10:28 AM EST - Follow up with cardiology, pulmonary, and GI as instructed by [facility] - Notify office if you have any difficulty getting appointments with these specialists - Continue current medication - Go back to ER if you experience any recurrent symptoms - Complete labs as ordered documented in this encounterA[facility] History of Present illness Narrative* Kieran Newsome APRN.ALTHEA - 10/22/2021 10:57 AM EDT Subjective HPI Nontoxic-appearing female presents urgent care chief complaint cough sinus congestion. Duration of symptoms 5 days. Associated symptoms nasal congestion and cough. Patient states she has been coughing up some clear secretions. States cough has became slightly more productive. States history of bronchitis. Concerned she is possibly developing bronchitis. Denies smoking. No history of COPD or asthma. No known sick contacts. Negative COVID home 19 test. Denies any OTC medication use today. Denies any pain. Denies any fever body aches chills chest pain shortness of breath pleuritic pain hemoptysis nausea vomiting abdominal pain change in bowel or bladder habits. Past medical history prescription medication use allergies reviewed. .Patient presents with: Chest Congestion: Cough x 5 days PAST MEDICAL HISTORY Diagnosis Date Anemia B12 deficiency Hypoglycemia Irregular menstrual bleeding s/p ablation PAST SURGICAL HISTORY Procedure Laterality Date PAST SURGICAL HISTORY OF 2 PAST SURGICAL HISTORY OF kidney stone = lithotripsy PAST SURGICAL HISTORY OF ablation uterus ALLERGIES Amoxil [Amoxicillin], Hydrocodone-Acetaminophen, Penicillins, and Rosuvastatin MEDICATIONS traZODone (DESYREL) 100 mg tablet Take 1.5 tablets by mouth daily at bedtime. Phentermine HCl 37.5 mg tablet TAKE 1 TABLET BY MOUTH EVERY DAY AT LEAST 1 HOUR AFTER MEALS POLY-IRON 150 FORTE 150-25-1 mg-mcg-mg cap Take 1 capsule by mouth once daily. FAMILY HISTORY Problem Relation Age of Onset Cancer Father lung other (thyroid cancer [Other]) Daughter Thyroid Mother Lipids Mother Cancer Maternal Grandmother colon Cancer Paternal Grandmother breast Social History Tobacco Use Smoking status: Former Types: Cigarettes Quit date: 11/18/1989 Years since quittin.9 Passive exposure: Never Smokeless tobacco: Never Vaping Use Vaping Use: Never used Substance Use Topics Alcohol use: Yes Comment: Socially Drug use: No BP 114/76 Pulse 92 Temp 36.8 C (98.3 F) Resp 21 Wt 69.4 kg (153 lb) SpO2 99% BMI 28.91 kg/m Review of Systems Constitutional: Negative for chills, fever and malaise/fatigue. HENT: Positive for congestion. Negative for ear discharge, ear pain, sinus pain and sore throat. Eyes: Negative for blurred vision, pain, discharge and redness. Respiratory: Positive for cough. Negative for hemoptysis, sputum production, shortness of breath, wheezing and stridor. Cardiovascular: Negative for chest pain. Gastrointestinal: Negative for abdominal pain, diarrhea, nausea and vomiting. Musculoskeletal: Negative for myalgias. Skin: Negative for itching and rash. Neurological: Negative for dizziness and headaches. Objective Physical Exam Constitutional: General: She is not in acute distress. Appearance: She is not diaphoretic. HENT: Head: Normocephalic. Nose: Congestion present. Mouth/Throat: Mouth: Mucous membranes are moist. Pharynx: Oropharynx is clear. No oropharyngeal exudate or posterior oropharyngeal erythema. Eyes: Conjunctiva/sclera: Conjunctivae normal. Pupils: Pupils are equal, round, and reactive to light. Cardiovascular: Rate and Rhythm: Normal rate and regular rhythm. Heart sounds: Normal heart sounds. Pulmonary: Effort: Pulmonary effort is normal. No tachypnea, accessory muscle usage or respiratory distress. Breath sounds: Normal breath sounds. No stridor. No wheezing, rhonchi or rales. Abdominal: Palpations: Abdomen is soft. Tenderness: There is no abdominal tenderness. Musculoskeletal: Cervical back: Normal range of motion and neck supple. No rigidity or tenderness. Lymphadenopathy: Cervical: No cervical adenopathy. Skin: General: Skin is warm and dry. Neurological: Mental Status: She is alert and oriented to person, place, and time. ASSESSMENT/PLAN: 1. Viral illness - ICD9: 079.99, ICD10: B34.9 Patient diagnosed with viral illness. No evidence of bacterial infection at this time. Patient was educated on supportive therapies. Patient will follow up with primary care provider as needed. Patient was instructed to immediately proceed to emergency room for any new, worsening, or symptoms lasting longer than anticipated. The patient's clinical presentation is otherwise unremarkable at this time. Based on exam and clinical finding, the patient is stable for discharge. Plan of care was discussed with patient. Patient verbalizes understanding and agrees to plan of care. This note was generated using [employer] software. It may contain errors in wording, punctuation, or spelling. Kieran Newsome APRN.[employer] UP HELPER documented in this encounterA[facility]08-22-2022 NoteHNO ID: [id number] Author: Ritesh Antonio MD Service: ? Author Type: Physician Type: Progress Notes Filed: 10/12/2021 2:30 PM Note Text: This note was created using [employer]. Subjective Mark Anderson is a 61 year old female. Mark presents today for annual wellness exam. She is doing well. She has no new complaints today. Review of Systems Constitutional: Negative. HENT: Negative. Eyes: Negative. Respiratory: Negative. Cardiovascular: Negative. Gastrointestinal: Negative. Endocrine: Negative. Genitourinary: Negative. Musculoskeletal: Negative. Skin: Negative. Allergic/Immunologic: Negative. Neurological: Negative. Hematological: Negative. Psychiatric/Behavioral: Negative. Objective BP 120/78 (BP Site: Left Arm, BP Cuff Size: Large Adult) Pulse 106 Temp 36 ?C (96.8 ?F) (Temporal) Resp 14 Ht 154.9 cm (5' 1) Wt 70.1 kg (154 lb 9.6 oz) SpO2 97% BMI 29.21 kg/m? Physical Exam Vitals reviewed. Constitutional: Appearance: Normal appearance. HENT: Head: Normocephalic and atraumatic. Nose: Nose normal. Eyes: Extraocular Movements: Extraocular movements intact. Pupils: Pupils are equal, round, and reactive to light. Cardiovascular: Rate and Rhythm: Normal rate and regular rhythm. Pulmonary: Effort: Pulmonary effort is normal. Breath sounds: Normal breath sounds. Abdominal: General: Bowel sounds are normal. Palpations: Abdomen is soft. Musculoskeletal: General: Normal range of motion. Cervical back: Normal range of motion and neck supple. Skin: General: Skin is warm and dry. Capillary Refill: Capillary refill takes less than 2 seconds. Neurological: General: No focal deficit present. Mental Status: She is alert and oriented to person, place, and time. Mental status is at baseline. Psychiatric: Mood and Affect: Mood normal. Behavior: Behavior normal. Assessment and Plan Mark was seen today for yearly exam. Diagnoses and all orders for this visit: Wellness examination - COMP METABOLIC PANEL; Future Mixed hyperlipidemia - LIPID PANEL BASIC; Future Other iron deficiency anemia - CBC + DIFF; Future Other orders - traZODone (DESYREL) 100 mg tablet; Take 1.5 tablets by mouth daily at bedtime.[facility]08-22-[facility] History of Present illness Narrative* Ritseh Antonio MD - 10/12/2021 2:28 PM EDT This note was created using [employer]. Subjective Mark Anderson is a 61 year old female. Mark presents today for annual wellness exam. She is doing well. She has no new complaints today. Review of Systems Constitutional: Negative. HENT: Negative. Eyes: Negative. Respiratory: Negative. Cardiovascular: Negative. Gastrointestinal: Negative. Endocrine: Negative. Genitourinary: Negative. Musculoskeletal: Negative. Skin: Negative. Allergic/Immunologic: Negative. Neurological: Negative. Hematological: Negative. Psychiatric/Behavioral: Negative. Objective BP 120/78 (BP Site: Left Arm, BP Cuff Size: Large Adult) Pulse 106 Temp 36 C (96.8 F) (Temporal) Resp 14 Ht 154.9 cm (5' 1) Wt 70.1 kg (154 lb 9.6 oz) SpO2 97% BMI 29.21 kg/m Physical Exam Vitals reviewed. Constitutional: Appearance: Normal appearance. HENT: Head: Normocephalic and atraumatic. Nose: Nose normal. Eyes: Extraocular Movements: Extraocular movements intact. Pupils: Pupils are equal, round, and reactive to light. Cardiovascular: Rate and Rhythm: Normal rate and regular rhythm. Pulmonary: Effort: Pulmonary effort is normal. Breath sounds: Normal breath sounds. Abdominal: General: Bowel sounds are normal. Palpations: Abdomen is soft. Musculoskeletal: General: Normal range of motion. Cervical back: Normal range of motion and neck supple. Skin: General: Skin is warm and dry. Capillary Refill: Capillary refill takes less than 2 seconds. Neurological: General: No focal deficit present. Mental Status: She is alert and oriented to person, place, and time. Mental status is at baseline. Psychiatric: Mood and Affect: Mood normal. Behavior: Behavior normal. Assessment and Plan Mark was seen today for yearly exam. Diagnoses and all orders for this visit: Wellness examination - COMP METABOLIC PANEL; Future Mixed hyperlipidemia - LIPID PANEL BASIC; Future Other iron deficiency anemia - CBC + DIFF; Future Other orders - traZODone (DESYREL) 100 mg tablet; Take 1.5 tablets by mouth daily at bedtime. documented in this encounterA[facility]07-17-[facility]22 History of Present illness Narrative* Corie Cantor APRN.[employer] UP HELPER - 09/06/2021 1:21 PM EDT CC: Patient presents with: Nasal Congestion: drainage x couple months HPI: Mark Anderson is a 61 year old female who presents to the office with complaint of head congestion, cough, nonproductive and sinus symptoms for 2 months. Symptoms are staying the same. Associated symptoms includes nasal congestion and facial pain/pressure. Denies headache, body aches, fever, rash, wheezing, dyspnea, fatigue, nausea, vomiting and diarrhea. Treatments tried include nothing so far. with no relief of symptoms. Sick contacts: unknown. History of asthma, frequent episodes of bronchitis, chronic bronchitis, bronchiectasis or COPD: No Smoker: No Seasonal/environmental allergies: No The ROS is otherwise negative. The patient's pmh, medications, allergies, and past visits are reviewed. PHYSICAL EXAM: BP 126/82 Pulse 90 Temp 36.8 C (98.3 F) Resp 16 Wt 70.3 kg (155 lb) SpO2 98% BMI 28.89 kg/m General appearance: alert, cooperative, pleasant, in no acute distress Head: Normocephalic Eyes: EOM's intact, conjunctiva pink and moist, no icterus, sclera white, non-injected Ears: Right ear: External ear/canal- Normal, TM - clear with good landmarks. Left ear: External ear/canal- Normal, TM - clear with good landmarks Oropharynx:moist without lesions, No erythema, exudates or tonsillar hypertrophy. Heart: Negative. RRR without obvious murmur, gallop, or rubs. No ectopy. Lungs: clear to auscultation, without rales or wheeze, good air exchange PAST MEDICAL HISTORY Diagnosis Date Anemia B12 deficiency Hypoglycemia Irregular menstrual bleeding s/p ablation PAST SURGICAL HISTORY Procedure Laterality Date PAST SURGICAL HISTORY OF 2 PAST SURGICAL HISTORY OF kidney stone = lithotripsy PAST SURGICAL HISTORY OF ablation uterus ALLERGIES Amoxil [Amoxicillin] and Vicodin [Hydrocodone-Acetaminophen] MEDICATIONS fluticasone (FLONASE) 50 mcg/actuation nasal spray Use 2 Sprays in each nostril once daily. Rinse mouth after use. traZODone (DESYREL) 100 mg tablet TAKE ONE TABLET BY MOUTH AT BEDTIME doxycycline monohydrate 100 mg tablet Take 1 tablet by mouth twice daily for 5 days. loratadine (CLARITIN) 10 mg tablet Take 1 tablet by mouth once daily. guaiFENesin (MUCINEX) 600 mg 12 hr tablet Take 2 tablets by mouth twice daily. Acarbose 25 mg tablet Take 25 mg by mouth three times daily with meals. topiramate 200 mg tablet Take 200 mg by mouth daily at bedtime. FAMILY HISTORY Problem Relation Age of Onset Cancer Father lung other (thyroid cancer [Other]) Daughter Thyroid Mother Lipids Mother Cancer Maternal Grandmother colon Cancer Paternal Grandmother breast Social History Tobacco Use Smoking status: Former Smoker Quit date: 11/18/1989 Years since quittin.8 Smokeless tobacco: Never Used Substance Use Topics Alcohol use: Yes Comment: Socially Drug use: No ASSESSMENT/PLAN: 1. Sinus congestion - ICD9: 478.19, ICD10: R09.81 doxycycline bid for 5 days also instructed to add an allergy Medication daily to help dry up secretions. Prescription instructions reviewed with patient as applicable. Potential red flag symptoms discussed with the patient. Reviewed appropriate action plan to take if red flag symptoms occur. Patient agreeable to treatment plan. Corie Cantor APRN.ALTHEA documented in this encounterNew Market ClinicDischar summary Author Dr. Cordoba [facility] June 05, 2022 1:59pm Note Date/Time June 05, 2022 1:4 5pm [facility] Medical Records Department [address] [place] [address] Instructions for Home/Discharge Instructions 06/05/22 1343 MR#: [id number] Acct: [id number] Name: MARK ANDERSON Rep #:[id number] : 1960 62 From: Peterson Cordoba DO PCP: Dr. Violetta Mcfarlane MD Status:ADM IN Discharge Instructions Diet Discharge Diet: No restrictions Activity Discharge Activity: Return to Normal Activity Weight Bearing Status: Full weight bearing Follow Up Care Test Results: Test results from this visit will be discussed in further detail at your follow- up appointment, if applicable. Discharge Plan Admission Admit Date/Time: 06/02/22 19:25 Primary Reason for Your Visit: cellulitis Attending Provider: Peterson Cordoba Primary Care Provider: Violetta Mcfarlane Consulting Providers: Quiana Dodd ; Herb Valenzuela Discharge Orders/Prescriptions Prescriptions: New cephalexin 500 mg capsule 500 mg PO Q8H Qty: 21 0RF Rx Instructions: start 06/06/22 prochlorperazine maleate [Compazine] 5 mg tablet 5 mg PO TID PRN (Reason: nausea and vomiting) Qty: 20 0RF Rx Instructions: one or two three times a day as needed for nausea Continued trazodone 100 mg Tablet 150 mg PO QHS ondansetron 8 mg tablet,disintegrating 5 mg PO DAILY folic acid 1 mg tablet 1 mg PO BID topiramate 25 mg tablet 25 mg PO QHS escitalopram oxalate 10 mg tablet 10 mg PO QHS Linzess 72 mcg capsule 72 mcg PO DAILY semaglutide (weight loss) 0.25 mg/0.5 mL Pen Injector 0.25 mg SUBCUT QWEEK Rx Instructions: administer weeks 1 through 4 of therapy diltiazem HCl 120 mg capsule,extended release 24hr 120 mg PO DAILY Qty: 30 6RF Held methotrexate sodium 2.5 mg tablet 12.5 mg PO SA Hold Instructions: hold for one more week Referrals / Follow Up: Violetta Mcfarlane MD [Primary Care Provider] - In 1 Week Disposition Disposition (needs filled in before D/C Order can be placed): Home, Self Care 06/05/22 [id number]<Electronically signed by Peterson Cordoba DO>Peterson Cordoba DO CC: Dr. Violetta Mcfarlane MD; Dr. Quiana Dodd MD; Dr. Herb Valenzuela MD ~ Signed [facility] Work Phone: Evaluation + Plan note Future Appointments Appointment Date:08/13/2021 08:00:00 AM Scheduled Provider:MANOJ FARFAN MD Location:[facility] Appointment Type:[facility] Diagnostic Tests Pending * Antinuclear Antibody Screen, Serum 07/16/21 * Rheumatoid Factor 07/16/21 [facility] Evaluation note* Diagnosis Onset Date Resolution Status Acute postoperative anemia due to expected blood loss acute History of abdominoplasty ac [place] Chronic neck pain chronic Chronic thoracic back pain c hronic Excessive body weight loss c hronic Family history of breast cancer chronic Former smoker chronic Intertrigo chronic Macromastia chronic Shoulder pain chronic Acute postoperative anemia due to expected blood loss acute History of abdominoplasty [place] Chronic neck pain chronic Chronic thoracic back pain c hronic Excessive body weight loss c hronic Family history of breast cancer chronic Former smoker chronic Intertrigo chronic Macromastia chronic Shoulder pain chronic Acute post-operative pain ac [place] Acute postoperative anemia due to expected blood loss acute History of abdominoplasty [place] Chronic neck pain chronic Chronic thoracic back pain c hronic Excessive body weight loss c hronic Former smoker chronic Intertrigo chronic Macromastia chronic Shoulder pain chronic Acute postoperative anemia due to expected blood loss acute History of abdominoplasty ac [place] Chronic neck pain chronic Chronic thoracic back pain c hronic Excessive body weight loss c hronic Family history of breast cancer chronic Former smoker chronic Intertrigo chronic Macromastia chronic Shoulder pain chronic Acute postoperative anemia due to expected blood loss acute Chronic neck pain chronic Chronic thoracic back pain c hronic Excessive body weight loss c hronic Family history of breast cancer chronic Former smoker chronic Intertrigo chronic Macromastia chronic Shoulder pain chronic [facility] Work Phone: Evaluation note* Diagnosis Sinus congestion- Primary Other diseases of nasal cavity and sinuses documented in this encounter [facility] note* Diagnosis Wellness examination- Primary Mixed hyperlipidemia Other iron deficiency anemia documented in this encounter [facility] note* Diagnosis Viral illness- Primary Unspecified viral infection, in conditions classified elsewhere and of unspecified site documented in this encounter [facility] note* Diagnosis Onset Date Resolution Status Bigeminy acute HLD (hyperlipidemia) acute Sinus tachycardia by electrocardiogram acute Former smoker [facility] Work Phone: Evaluation note* Diagnosis Onset Date Resolution Status Bigeminy acute HLD (hyperlipidemia) acute Migraine acute Sinus tachycardia by electrocardiogram acute Former smoker [facility] Work Phone: Evaluation note* Diagnosis Sinus tachycardia by electrocardiography- Primary PVC (premature ventricular contraction) Other premature beats Migraine without aura and without status migrainosus, not intractable Migraine without aura, without mention of intractable migraine without mention of status migrainosus [facility] Diagnosis Elevated TSH- Primary Nonspecific abnormal results of thyroid function study Elevated liver enzymes Other nonspecific abnormal serum enzyme levels documented in this encounter [facility] note* Diagnosis Onset Date Resolution Status Bigeminy resolved Sinus tachycardia by electrocardiogram resolved Contact with or suspected ex posure to other viral communicable disease acute Migraine acute [facility] Work Phone: Evaluation note* Diagnosis Onset Date Resolution Status Bigeminy resolved Sinus tachycardia by electrocardiogram resolved Migraine acute Contact with or suspected ex posure to other viral communicable disease resolved DUNLAP (dyspnea on exertion) ac [place] Fatigue acute Frequent PVCs acute [facility] Work Phone: Evaluation note* Diagnosis Onset Date Resolution Status Bigeminy resolved Sinus tachycardia by electrocardiogram resolved Migraine acute Contact with or suspected ex posure to other viral communicable disease resolved DUNLAP (dyspnea on exertion) ac [place] Fatigue acute Frequent PVCs acute Fatigue acute Migraine acute Screening declined by patient noneactive Immunization declined noneac tive Moderate major depression no neactive Establishing care with new doctor, encounter for noneactive Palpitations noneactive Moderate anxiety noneactive Elevated liver enzymes nonea ctive Suspected sleep apnea noneac tive Irritable bowel syndrome with constipation noneactive Vitamin D deficiency noneact josé Iron deficiency noneactive [facility] Work Phone: Evaluation note* Diagnosis Onset Date Resolution Status Bigeminy resolved Sinus tachycardia by electrocardiogram resolved Migraine acute Contact with or suspected ex posure to other viral communicable disease resolved DUNLAP (dyspnea on exertion) ac [place] Fatigue acute Frequent PVCs acute Fatigue acute Migraine acute Screening declined by patient noneactive Immunization declined noneac tive Moderate major depression no neactive Establishing care with new doctor, encounter for noneactive Palpitations noneactive Moderate anxiety noneactive Elevated liver enzymes nonea ctive Suspected sleep apnea noneac tive Irritable bowel syndrome with constipation noneactive Vitamin D deficiency noneact josé Iron deficiency noneactive Fatigue acute Frequent PVCs acute Fatigue acute Migraine acute Moderate major depression no neactive Palpitations noneactive Moderate anxiety noneactive Weight gain noneactive Irritable bowel syndrome with constipation noneactive [facility] Work Phone: Evaluation note* Diagnosis Migraine without aura and without status migrainosus, not intractable Migraine without aura, without mention of intractable migraine without mention of status migrainosus [facility] Diagnosis Sinus tachycardia by electrocardiography [facility]* Diagnosis Onset Date Resolution Status Migraine acute Contact with or suspected ex posure to other viral communicable disease resolved DUNLAP (dyspnea on exertion) ac [place] Fatigue acute Frequent PVCs acute Fatigue acute Migraine acute Screening declined by patient noneactive Immunization declined noneac tive Moderate major depression no neactive Establishing care with new doctor, encounter for noneactive Palpitations noneactive Moderate anxiety noneactive Elevated liver enzymes nonea ctive Suspected sleep apnea noneac tive Irritable bowel syndrome with constipation noneactive Vitamin D deficiency noneact josé Iron deficiency noneactive Fatigue acute Frequent PVCs acute Fatigue acute Migraine acute Moderate major depression no neactive Palpitations noneactive Moderate anxiety noneactive Weight gain noneactive Irritable bowel syndrome with constipation noneactive Cellulitis of chest wall acu te Immunocompromised acute [facility] Work Phone: Evaluation note* Diagnosis Onset Date Resolution Status Cellulitis of chest wall acu te Immunocompromised acute Fatigue acute Migraine acute Vaginal itching noneactive Moderate major depression no neactive Erysipelas noneactive Palpitations noneactive Autoimmune disorder noneacti ve Moderate anxiety noneactive Weight gain noneactive Irritable bowel syndrome with constipation noneactive Hospital discharge follow-up noneactive Fatigue acute Frequent PVCs acute [facility] Work Phone: Evaluation note* Diagnosis Onset Date Resolution Status Cellulitis of chest wall acu te Immunocompromised acute Fatigue acute Migraine acute Vaginal itching noneactive Moderate major depression no neactive Erysipelas noneactive Palpitations noneactive Autoimmune disorder noneacti ve Moderate anxiety noneactive Weight gain noneactive Irritable bowel syndrome with constipation noneactive Hospital discharge follow-up noneactive Fatigue acute Frequent PVCs acute Fatigue acute Migraine acute Moderate major depression no neactive Palpitations noneactive Autoimmune disorder noneacti ve Dysuria noneactive Moderate anxiety noneactive Weight gain noneactive Irritable bowel syndrome with constipation noneactive [facility] Work Phone: Evaluation note* Diagnosis Onset Date Resolution Status Fatigue acute Migraine acute Moderate major depression no neactive Palpitations noneactive Autoimmune disorder noneacti ve Dysuria noneactive Moderate anxiety noneactive Weight gain noneactive Irritable bowel syndrome with constipation noneactive Migraine acute Sensation of plugged ear non eactive Moderate major depression no neactive Palpitations noneactive Autoimmune disorder noneacti ve Moderate anxiety noneactive Irritable bowel syndrome with constipation noneactive Constipation acute Nausea alone acute [facility] Work Phone: Evaluation note* Diagnosis Onset Date Resolution Status Migraine acute Sensation of plugged ear non eactive Moderate major depression no neactive Palpitations noneactive Autoimmune disorder noneacti ve Moderate anxiety noneactive Irritable bowel syndrome with constipation noneactive Constipation acute Nausea alone acute [facility] Work Phone: History and physical note Author Dr. Dodd [facility] June 02, 2022 2:24pm Note Date/Time June 02, 2022 2:1 8pm [facility] Medical Records Department [address] [place] [address] History & Physical Exam 06/02/22 1410 MR#: [id number] Acct: [id number] Name: MARK ANDERSON Rep #:[id number] : 1960 62 From: Quiana Braswell PCP: Dr. Violetta Mcfarlane MD Status:ADM IN Location: [facility] [id number] HPI - General General Date of Admission: 06/02/22 Date of Service: 06/02/22 Chief Complaint: Pain, redness and swelling involving the left upper chest and upper abdomen x1 day HPI Narrative MARK ANDERSON, is a 62 F with a history of depression and anxiety, Sjogren's syndrome and inflammatory polyarthropathy for which she was recently started on methotrexate about 2 weeks ago. Presented to the hospital with 1 day history ofpain, redness and swelling and exquisite tenderness involving the left lower chest, lower breast and upper abdomen and flank. Patient has a mole in the center of this area which she has been picking and she believes this may have been the inciting event. Denies any fever denies any chills per se. States shealways feels cold. Denies any nausea or vomiting. [facility] Medical History Acute postoperative anemia due to expected blood loss Alcohol use Anemia Chronic neck pain Chronic thoracic back pain Diastasis of rectus abdominis Drug-induced pruritus Elective procedure for unacceptable cosmetic appearance Excessive and redundant skin and subcutaneous tissue Excessive body weight loss Family history of breast cancer Fatigue Former smoker Hemorrhoids HLD (hyperlipidemia) Hydronephrosis with urinary obstruction due to renal calculus Intertrigo Irritable bowel syndrome Left ureteral stone Macromastia Migraine headache Restless legs Shoulder pain Tachycardia UTI (urinary tract infection) Wears glasses Home Medications trazodone 100 mg tablet 150 mg PO QHS SLEEP 07/15/20 [History Last Taken 06/01/22] diltiazem HCl 120 mg capsule,extended release 24 hr 120 mg PO DAILY #30 caps 03/05/22 [Rx Last Taken Unknown] escitalopram oxalate 10 mg tablet 10 mg PO QHS 06/02/22 [History Last Taken 06/01/22] folic acid 1 mg tablet 1 mg PO BID supplement 06/02/22 [History Last Taken 3 Days Ago ~05/30/22] linaclotide 72 mcg capsule (Linzess) 72 mcg PO DAILY IRRITABLE BOWELS 06/02/22 [History Last Taken 3 Days Ago ~05/30/22] methotrexate sodium 2.5 mg tablet 12.5 mg PO SA 06/02/22 [History Last Taken 05/29/22] ondansetron 8 mg disintegrating tablet 5 mg PO DAILY NAUSEA 06/02/22 [History Last Taken Unknown] semaglutide (weight loss) 0.25 mg/0.5 mL subcutaneous pen injector 0.25 mg subcut QWEEK 06/02/22 [History Last Taken Unknown] topiramate 25 mg tablet 25 mg PO QHS MOOD 06/02/22 [History Last Taken 06/01/22] Allergy/AdvReac Type Severity Reaction Status Date / Time clindamycin [From Cleocin] Allergy Mild itching Verified 06/02/22 10:25 amoxicillin Allergy Rash Verified 06/02/22 10:25 hydrocodone [From Vicodin] Allergy Rash Verified 06/02/22 10:25 hydromorphone [From Dilaudid] AdvReac Other Verified 06/02/22 14:21 sulfamethoxazole AdvReac Nausea Verified 06/02/22 10:25 [From Bactrim] trimethoprim [From Bactrim] AdvReac Nausea Verified 06/02/22 10:25 Family History Daughter Cancer Thyroid cancer Asthma Father Cancer bone Alcoholism Mother Hypertension Thyroid disorder Dementia CAD (coronary artery disease) Sister Anemia Grandmother Cancer colon, breast Brother Alcoholism Dementia Frontal lobe Other Family history of breast cancer Surgical History History of abdominoplasty History of ear surgery History of left heart catheterization Hx of section Hx of cystoscopy (~11/17/16) Hx of tubal ligation Status post bilateral breast reduction Social History household members: spouse current occupational status: employed and retired 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 Denies any nausea vomiting. All other systems reviewed and essentially negative as above in the part of the history. Vital Signs Vital Signs Vital Signs: 06/02/22 10:23 06/02/22 10:32 06/02/22 11:03 Temperature 36.9 C Temperature Source Temporal Pulse Rate 119 H Respiratory Rate 16 Respiratory Effort Normal Non-Labored Blood Pressure 120/100 H Blood Pressure Mean 106 Pulse Ox 97 97 Oxygen Delivery Method Room Air Room Air 06/02/22 11:29 06/02/22 13:21 Temperature 36.6 C Temperature Source Temporal Pulse Rate 97 98 Respiratory Rate 14 14 Respiratory Effort Blood Pressure 110/84 H 121/61 H Blood Pressure Mean 92 81 Pulse Ox 95 98 Oxygen Delivery Method Room Air Room Air Weight Weight: 72.575 kg Body Mass Index (BMI) 30.2 Physical Exam Narrative General exam. Middle-aged man, acutely ill-appearing, anxious appearing, in painful distress HEENT. Oral mucosa dry, no pallor or jaundice. Neck. Neck Supple. Lungs. Clear to auscultation, nonlabored breathing Heart. First and second heart sounds heard no murmurs. Abdomen. Moves with respiration. Skin. Area of induration, redness, exquisite tenderness and hypersensitivity, swelling and warmth extending from the lower chest and upper abdomen anteriorly and extending to the left flank. 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 Conscious alert and oriented x3. Cranial nerves II 12 grossly intact Extremities. No pedal edema. All other organ systems examined and essentially normal. Results Medical Records Data Attestation: I reviewed the patient's medical records Lab / Micro Data Attestation: I reviewed the patient's lab results. Lab results narrative: No leukocytosis noted and all other blood tests largely normal. Result Diagrams: 06/02/22 10:55 06/02/22 10:55 Labs: Laboratory Results - last 24 hr 06/02/22 10:55: WBC 9.9, RBC 4.53, Hgb 14.4, Hct 44.1, MCV 97.4, MCH 31.8, MCHC 32.7, RDW Std Deviation 44.5 H, RDW Coeff of Cathy 12.6, Plt Count 183, MPV 10.3, Immature Gran % (Auto) 0.500, Neut % (Auto) 85.0 H, Lymph % (Auto) 9.8 L, Hamlin %(Auto) 4.1, Eos % (Auto) 0.4, Baso % (Auto) 0.2, Absolute Neuts (auto) 8.4 H, Absolute Lymphs (auto) 0.97, Nucleated RBC % 0 06/02/22 10:55: Sodium 137, Potassium 3.5, Chloride 113 H, Carbon Dioxide 23.0, Anion Gap 1 L, BUN 12, Creatinine 1.07 H, Estim Creat Clear Calc 42.19, Est GFR (MDRD) Af Amer 67, Est GFR (MDRD) Non-Af 56 L, BUN/Creatinine Ratio 11.2, Glucose 108 H, Calcium 9.4 Rhythm Strip Rhythm Strip: Sinus Tach Rate: 106 Ectopy: None Radiology Impression Chest X-Ray 06/02/22 10:55 IMPRESSION: No acute thoracic pathology. Electronically Signed: Joo Melissa MD at 11:09 EDT , Abdomen CT 06/02/22 12:50 IMPRESSION: No suspicious solid organ and amount, simple hepatic cysts, no specific follow-up needed Stable nonspecific extrahepatic common bile duct dilatation at 7.5 mm but no obstructing stone is noted. No free peritoneal fluid, air, or suspicious adenopathy No significant interval change Electronically Signed: Leonardo Wan MD at 13:28 EDT , Assessment & Plan Assessment/Plan (1) Cellulitis of chest wall: (2) Immunocompromised: PLAN: Plan 1. Chest wall cellulitis. Start on IV antibiotics with IV clindamycin 600 mg every 8 hours and vancomycin 1 g every 12 hours. Multimodal analgesics for optimal pain control. 2. Inflammatory polyarthropathy. Patient on methotrexate for this and so relatively immunocompromised. We will hold methotrexate for now. Can resume after resolution of infection. 3. Anxiety and depression. Continue antidepressant therapy. Charges/Coding Visit Charges Inpatient E&M: 54680 Init Hosp L3 06/02/22 1424 <Electronically signed by Quiana Dodd MD> Cosigner Signature (if applicable): CC: Dr. Violetta Mcfarlane MD; Dr. Quiana Dodd MD~ Signed [facility] Work Phone: Hospital course Narrative No data available for this section [facility] Hospital Discharge instructions No data available for this section [facility] Progress note No data available for this section [facility] Reason for referral (narrative)No reason for referral information availableWS[facility] Work Phone: Summary Purpose Family History Relationship Condition Age at Onset Recorded Date/T meño Not Specified Family history of ma lignant neoplasm of breast Unknown daughter Malignant neoplasm Unknown Asthma Unknown father Malignant neoplasm Unknown mother Hypertension Unknown Disorder of thyroid Unknown Dementia Unknown Relationship Condition Age at Onset Recorded Date/T meño Not Specified Family history of ma lignant neoplasm of breast Unknown daughter Malignant neoplasm Unknown Asthma Unknown father Malignant neoplasm Unknown Alcoholism Unknown mother Hypertension Unknown Disorder of thyroid Unknown Dementia Unknown Coronary artery disease Unknown sister Anemia Unknown grandmother Malignant neoplasm Unknown brother Alcoholism Unknown Advance Directives Advance Directive Response Recorded Date/ Time Advance Directives No December 11:52am Living Will No April 15 7:09pm Power of Creative Services Designer No April 15, 2021 7:09pm Advance Directive Response Recorded Date/ Time Name of Medical Power of Creative Services Designer Unknown January 25, 2022 8:41pm Advance Directives No December 10:52am Living Will Yes January 25 8:41pm Power of Creative Services Designer Yes January 25, 2022 8:41pm Advance Directive Response Recorded Date/ Time Name of Medical Power of Creative Services Designer Devaughn or Daughter Ary (pt unsure) January 26, 2022 12:00am Advance Directives No December 10:52am Living Will Yes January 26 12:00am Power of Creative Services Designer Yes January 26, 2022 12:00am Advance Directive Response Recorded Date/ Time Name of Medical Power of Creative Services Designer Devaughn or Daughter Ary (pt unsure) January 26, 2022 12:00am Name of Medical Power of Creative Services Designer recalled March 02, 2022 8:41pm Advance Directives No December 10:52am Living Will Yes March 02 8:41pm Power of Creative Services Designer Yes March 02, 2022 8:41pm Advance Directive Response Recorded Date/ Time Name of Medical Power of Creative Services Designer Devaughn or Daughter Ary (pt unsure) January 26, 2022 12:00am Name of Medical Power of Creative Services Designer recalled March 02, 2022 8:41pm Advance Directives No March 05, 2022 7:44am Living Will No March 05 7:44am Power of Creative Services Designer No March 05, 2022 7:44am Advance Directive Response Recorded Date/ Time Name of Medical Power of Creative Services Designer recalled March 02, 2022 9:41pm Advance Directives No March 05, 2022 8:44am Living Will No June 02, 2022 10:39am Power of Creative Services Designer No June 02 10:39am Advance Directive Response Recorded Date/ Time Name of Medical Power of Creative Services Designer recalled March 02, 2022 9:41pm Name of Medical Power of Creative Services Designer -Gerhard Cantor June 02, 2022 3:38pm Advance Directives No March 05, 2022 8:44am Living Will No June 02, 2022 3:38pm Power of Creative Services Designer Yes June 02 3:38pm Advance Directive Response Recorded Date/ Time Name of Medical Power of Creative Services Designer -Gerhard Cantor June 02, 2022 3:38pm Advance Directives No March 05, 2022 8:44am Living Will No June 02, 2022 3:38pm Power of Creative Services Designer Yes June 02 3:38pm Advance Directive Response Recorded Date/ Time Advance Directives No March 05, 2022 8:44am Living Will No June 02, 2022 3:38pm Power of Creative Services Designer Yes June 02 3:38pm Advance Directive Response Recorded Date/ Time Advance Directives No March 05, 2022 7:44am Living Will No Stefani 12th, 2023 2:38pm Power of Creative Services Designer Yes June 02 2:38pm Advance Directive Response Recorded Date/ Time Advance Directives No February 25, 2023 11:30am Chief Complaint and Reason for Visit Chief Complaint SCREENING BILATERAL BREAST REDUCTION BILATERAL BREAST REDUCTION BILATERAL BREAST REDUCTION POST OP CK POST OP CK POST OP CK POST OP CK ATAXIA, DIZZINESS Reason for Visit Acute postoperative anemia due to expected blood loss History of abdominoplasty Chronic neck pain Chronic thoracic back pain Excessive body weight loss Family history of breast cancer Former smoker Intertrigo Macromastia Shoulder pain Acute postoperative anemia due to expected blood loss History of abdominoplasty Chronic neck pain Chronic thoracic back pain Excessive body weight loss Family history of breast cancer Former smoker Intertrigo Macromastia Shoulder pain Acute post-operative pain Acute postoperative anemia due to expected blood loss History of abdominoplasty Chronic neck pain Chronic thoracic back pain Excessive body weight loss Former smoker Intertrigo Macromastia Shoulder pain Acute postoperative anemia due to expected blood loss History of abdominoplasty Chronic neck pain Chronic thoracic back pain Excessive body weight loss Family history of breast cancer Former smoker Intertrigo Macromastia Shoulder pain Acute postoperative anemia due to expected blood loss Chronic neck pain Chronic thoracic back pain Excessive body weight loss Family history of breast cancer Former smoker Intertrigo Macromastia Shoulder pain Chief Complaint PVS, TACHYCARDIA PVS, TACHYCARDIA [facility] Sinus tachycardia by electrocardiogram Former smoker Chief Complaint PVS, TACHYCARDIA PALPITATIONS WITH NEAR SYNCOPE PALPITATIONS WITH NEAR SYNCOPE PALPITATIONS WITH NEAR SYNCOPE PALPITATIONS WITH NEAR SYNCOPE Reason [facility] (hyperlipidemia) Migraine Sinus tachycardia by electrocardiogram Former smoker Chief Complaint PVS, TACHYCARDIA PALPITATIONS WITH NEAR SYNCOPE PALPITATIONS WITH NEAR SYNCOPE PALPITATIONS WITH NEAR SYNCOPE PALPITATIONS WITH NEAR SYNCOPE PAIN LEFT SHOULDER [facility] Migraine Sinus tachycardia by electrocardiogram Former smoker Chief Complaint PVS, TACHYCARDIA PALPITATIONS WITH NEAR SYNCOPE PALPITATIONS WITH NEAR SYNCOPE PALPITATIONS WITH NEAR SYNCOPE PALPITATIONS WITH NEAR SYNCOPE PAIN LEFT SHOULDER FLU SYPTOMS ABD PAIN Reason for Visit [facility] Sinus tachycardia by electrocardiogram Contact with or suspected exposure to other viral communicable disease Migraine Chief Complaint PVS, TACHYCARDIA PALPITATIONS WITH NEAR SYNCOPE PALPITATIONS WITH NEAR SYNCOPE PALPITATIONS WITH NEAR SYNCOPE PALPITATIONS WITH NEAR SYNCOPE PAIN LEFT SHOULDER FLU SYPTOMS ABD PAIN s/p hosp tachycardia SOB Reason for Visit [facility] Sinus tachycardia by electrocardiogram Migraine Contact with or suspected exposure to other viral communicable disease DUNLAP (dyspnea on exertion) Fatigue Frequent PVCs Chief Complaint PVS, TACHYCARDIA PALPITATIONS WITH NEAR SYNCOPE PALPITATIONS WITH NEAR SYNCOPE PALPITATIONS WITH NEAR SYNCOPE PALPITATIONS WITH NEAR SYNCOPE PAIN LEFT SHOULDER FLU SYPTOMS ABD PAIN s/p hosp tachycardia SOB SKEWER UP EST CARE Reason for Visit [facility] Sinus tachycardia by electrocardiogram Migraine Contact with or suspected exposure to other viral communicable disease DUNLAP (dyspnea on exertion) Fatigue Frequent PVCs Fatigue Migraine Screening declined by patient Immunization declined Moderate major depression Establishing care with new doctor, encounter for Palpitations Moderate anxiety Elevated liver enzymes Suspected sleep apnea Irritable bowel syndrome with constipation Vitamin D deficiency Iron deficiency Chief Complaint PVS, TACHYCARDIA PALPITATIONS WITH NEAR SYNCOPE PALPITATIONS WITH NEAR SYNCOPE PALPITATIONS WITH NEAR SYNCOPE PALPITATIONS WITH NEAR SYNCOPE PAIN LEFT SHOULDER FLU SYPTOMS ABD PAIN s/p hosp tachycardia SOB SKEWER UP EST CARE 1 MO F/U HYPERSOMNIA FATIGUE 6 wk FU Reason for Visit [facility] Sinus tachycardia by electrocardiogram Migraine Contact with or suspected exposure to other viral communicable disease DUNLAP (dyspnea on exertion) Fatigue Frequent PVCs Fatigue Migraine Screening declined by patient Immunization declined Moderate major depression Establishing care with new doctor, encounter for Palpitations Moderate anxiety Elevated liver enzymes Suspected sleep apnea Irritable bowel syndrome with constipation Vitamin D deficiency Iron deficiency Fatigue Frequent PVCs Fatigue Migraine Moderate major depression Palpitations Moderate anxiety Weight gain Irritable bowel syndrome with constipation Chief Complaint FLU SYPTOMS ABD PAIN s/p hosp tachycardia SOB SKEWER UP EST CARE 1 MO F/U HYPERSOMNIA FATIGUE 6 wk FU AVISE BOX CHEST WALL CELLULITIS, IMMUNOCOMPROMISED CHEST WALL CELLULITIS, IMMUNOCOMPROMISED Reason for Visit Migraine Contact with or suspected exposure to other viral communicable disease DUNLAP (dyspnea on exertion) Fatigue Frequent PVCs Fatigue Migraine Screening declined by patient Immunization declined Moderate major depression Establishing care with new doctor, encounter for Palpitations Moderate anxiety Elevated liver enzymes Suspected sleep apnea Irritable bowel syndrome with constipation Vitamin D deficiency Iron deficiency Fatigue Frequent PVCs Fatigue Migraine Moderate major depression Palpitations Moderate anxiety Weight gain Irritable bowel syndrome with constipation Cellulitis of chest wall Immunocompromised Chief Complaint FLU SYPTOMS ABD PAIN s/p hosp tachycardia SOB SKEWER UP EST CARE 1 MO F/U HYPERSOMNIA FATIGUE 6 wk FU AVISE BOX CHEST WALL CELLULITIS, IMMUNOCOMPROMISED CELLULITIS Cellulitis Reason for Visit Migraine Contact with or suspected exposure to other viral communicable disease DUNLAP (dyspnea on exertion) Fatigue Frequent PVCs Fatigue Migraine Screening declined by patient Immunization declined Moderate major depression Establishing care with new doctor, encounter for Palpitations Moderate anxiety Elevated liver enzymes Suspected sleep apnea Irritable bowel syndrome with constipation Vitamin D deficiency Iron deficiency Fatigue Frequent PVCs Fatigue Migraine Moderate major depression Palpitations Moderate anxiety Weight gain Irritable bowel syndrome with constipation Cellulitis of chest wall Immunocompromised Chief Complaint CHEST WALL CELLULITI S, IMMUNOCOMPROMISED CELLULITIS Cellulitis Cellulitis Cellulitis [facility] FU 3 M FU PAIN- [facility] PCP Reason for Visit Cellulitis of chest wall Immunocompromised Fatigue Migraine Vaginal itching Moderate major depression Erysipelas Palpitations Autoimmune disorder Moderate anxiety Weight gain Irritable bowel syndrome with constipation Hospital discharge follow-up Fatigue Frequent PVCs Chief Complaint CHEST WALL CELLULITI S, IMMUNOCOMPROMISED CELLULITIS Cellulitis Cellulitis Cellulitis [facility] FU 3 M FU PAIN- [facility]Y PCP 6 M FU Reason for Visit Cellulitis of chest wall Immunocompromised Fatigue Migraine Vaginal itching Moderate major depression Erysipelas Palpitations Autoimmune disorder Moderate anxiety Weight gain Irritable bowel syndrome with constipation Hospital discharge follow-up Fatigue Frequent PVCs Fatigue Migraine Moderate major depression Palpitations Autoimmune disorder Dysuria Moderate anxiety Weight gain Irritable bowel syndrome with constipation Chief Complaint PAIN- COPY PCP 6 M FU 3 wk fu Consult Reason for Visit Fatigue Migraine Moderate major depression Palpitations Autoimmune disorder Dysuria Moderate anxiety Weight gain Irritable bowel syndrome with constipation Migraine Sensation of plugged ear Moderate major depression Palpitations Autoimmune disorder Moderate anxiety Irritable bowel syndrome with constipation Constipation Nausea alone Chief Complaint PAIN- COPY PCP 6 M FU 3 wk fu Consult NAUSEA Reason for Visit Fatigue Migraine Moderate major depression Palpitations Autoimmune disorder Dysuria Moderate anxiety Weight gain Irritable bowel syndrome with constipation Migraine Sensation of plugged ear Moderate major depression Palpitations Autoimmune disorder Moderate anxiety Irritable bowel syndrome with constipation Constipation Nausea alone Chief Complaint 3 wk fu Consult NAUSEA PAIN- COPY PCP Reason for Visit Migraine Sensation of plugged ear Moderate major depression Palpitations Autoimmune disorder Moderate anxiety Irritable bowel syndrome with constipation Constipation Nausea alone Chief Complaint Admit Date 3 M FU June 26, 2024 10:08a m LIPOSUCTION July 13, 2024 2:12p m NAUSEA July 31, 2024 4:34 pm Reason for Visit Admit Date Nausea alone June 26, 2024 10:08a m Constipation June 26, 2024 10:08a m Encounter for cosmetic surgery July 13, 2024 2:12pm Chief Complaint Admit Date 3 M FU June 26, 2024 10:08a m LIPOSUCTION July 13, 2024 2:12p m NAUSEA July 31, 2024 4:34 pm SURG CLEARANCE September 04, 2024 1:40 pm Reason for Visit Admit Date Nausea alone June 26, 2024 10:08a m Constipation June 26, 2024 10:08a m Encounter for cosmetic surgery July 13, 2024 2:12pm Migraine September 04, 2024 1:40 pm Preoperative clearance September 04, 2024 1 :40pm Autoimmune disorder September 04, 2024 1:40 pm Anxiety and depression September 04, 2024 1 :40pm Left shoulder pain September 04, 2024 1:40 pm Irritable bowel syndrome with constipati on September 04, 2024 1:40pm Chief Complaint Admit Date 3 M FU June 26, 2024 10:08a m LIPOSUCTION July 13, 2024 2:12p m NAUSEA July 31, 2024 4:34 pm SURG CLEARANCE September 04, 2024 1:40 pm Encounter for other preprocedural examin ation September 13, 2024 1:49pm Reason for Visit Admit Date Nausea alone June 26, 2024 10:08a m Constipation June 26, 2024 10:08a m Encounter for cosmetic surgery July 13, 2024 2:12pm Migraine September 04, 2024 1:40 pm Ganglion cyst September 04, 2024 1:40 pm Preoperative clearance September 04, 2024 1 :40pm Autoimmune disorder September 04, 2024 1:40 pm Anxiety and depression September 04, 2024 1 :40pm Irritable bowel syndrome with constipati on September 04, 2024 1:40pm Additional Source Comments INFORMATION SOURCE (unrecogn ized section and content) DATE CREATED AUTHOR 01/29/2018 [facility] [employer] DATE CREATED AUTHOR AUTHOR'S ORGANIZ ATION 11/07/2020 [employer] [place] DATE CREATED AUTHOR AUTHOR'S ORGANIZ ATION 12/13/2021 [facility] [employer] ([place]) DATE CREATED AUTHOR AUTHOR'S ORGANIZ ATION 03/04/2022 [employer] DATE CREATED AUTHOR AUTHOR'S ORGANIZ ATION 02/26/2023 [facility] DATE CREATED AUTHOR AUTHOR'S ORGANIZ ATION 09/15/2024 [facility] Goals (unrecognized section and content) Goals may be documented in a n alternate section No data available for this sectionGoals may be documented in an alternate sectionGoals may be documented in an alternate sectionGoals may be documented in an alternate sectionGoals may be documented in an alternate sectionGoals may be documented in an alternate sectionGoals may be documented in an alternate sectionGoals may be documented in an alternate sectionGoals may be documented in an alternate section Care Team (unrecognized sect ion and content) Core Java Engineer Relationship Specialty Start Date End Date Ritesh Antonio MD [address] [place] [address] PCP - General Family Practice 06/07/18 Core Java Engineer Relationship Specialty Start Date End Date Ritesh Antonio MD [address] [place] [address] PCP - General Family Practice 06/07/18 Core Java Engineer Relationship Specialty Start Date End Date Ritesh Antonio MD [address] [place] [address] PCP - General Family Practice 06/07/18 Core Java Engineer Relationship Specialty Start Date End Date Ritesh Antonio MD [address] [place] [address] PCP - General Family Practice 06/07/18 Core Java Engineer Relationship Specialty Start Date End Date Ritesh Antonio MD [address] [place] [address] PCP - General Family Practice 06/07/18 Core Java Engineer Relationship Specialty Start Date End Date Ritesh Antonio MD [address] [place] [address] PCP - General Family Medicine 06/07/18 Core Java Engineer Relationship Specialty Start Date End Date Ritesh Antonio MD [address] [place] [address] PCP - General Family Medicine 06/07/18 Core Java Engineer Relationship Specialty Start Date End Date Ritesh Antonio MD [address] [place] [address] PCP - General Family Medicine 06/07/18 Team Status: Active Member Role Status Dates Dr. Ritesh Antonio MD Family Provider Active Dr. Violetta Mcfarlane MD Primary Care Provider Active Team Status: Active Member Role Status Dates Dr. Ritesh Antonio MD Primary Care Provider Active Dr. Behzad Green DO Emergency Provider Active Dr. Cristi Srivastava MD Admit Provider, At tending Provider, Other Provider Active Team Status: Active Member Role Status Dates Dr. Ritesh Antonio MD Primary Care Provider Active Dr. Behzad Green DO Emergency Provider Active Dr. Cristi Srivastava MD Admit Provider, Other Provider A ctive Dr. Eric Cuevas MD Attending Provider, Other Provide r Active Team Status: Active Member Role Status Dates Dr. Ritesh Antonio MD Primary Care Provider Active Dr. Behzad Green DO Emergency Provider Active Dr. Cristi Srivastava MD Admit Provider, Other Provider A ctive Dr. Eric Cuevas MD Other Provider Active Dr. Eric Pulido DO Attending Provider, Other Provid er Active Team Status: Inactive Member Role Status Dates Dr. Ritesh Antonio MD Primary Care Provider, Referrin g Provider Active Linda Díaz PA, PA Attending Provider Active Team Status: Inactive Member Role Status Dates Dr. Ritesh Antonio MD Primary Care Provider, Referrin g Provider Active Ricardo Rangel PA, PA Attending Provider Active Team Status: Inactive Member Role Status Dates Dr. Ritesh Antonio MD Primary Care Provider, Referrin g Provider Active Dr. Violetta Mcfarlane MD Attending Provider Active Team Status: Inactive Member Role Status Dates Dr. Ritesh Antonio MD Primary Care Provider Active Dr. Elroy Hdez MD Attending Provider, Referring P margaret Active Team Status: Inactive Member Role Status Dates Dr. Ritesh Antonio MD Primary Care Provider Active Dr. Behzad Green DO Emergency Provider Active Dr. Cristi Srivastava MD Admit Provider, Other Provider A ctive Dr. Eric Cuevas MD Other Provider Active Dr. Eric Pulido DO Attending Provider Active Team Status: Inactive Member Role Status Dates Dr. Ritesh Antonio MD Primary Care Provider Active Ricardo Rangel PA, PA Attending Provider, Referring Provi dmitry Active Team Status: Inactive Member Role Status Dates Dr. Ritesh Antonio MD Primary Care Provider Active Dr. Behzad rGeen DO Attending Provider, Emergency Provider Active Team Status: Inactive Member Role Status Dates Dr. Ritesh Antonio MD Primary Care Provider Active Dr. Eric Cuevas MD Attending Provider, Referring Pro vider Active Team Status: Inactive Member Role Status Dates Dr. Violetta Mcfarlane MD Primary Care Pro vider, Attending Provider, Referring Provider Active Team Status: Inactive Member Role Status Dates Dr. Ritesh Antonio MD Referring Provider Active Linda Díaz PA, PA Attending Provider Active Dr. Violetta Mcfarlane MD Primary Care Provider Active Team Status: Inactive Member Role Status Dates Dr. Ritesh Antonio MD Referring Provider Active Dr. Violetta Mcfarlane MD Primary Care Provider, Attendi ng Provider Active Team Status: Inactive Member Role Status Dates Dr. Violetta Mcfarlane MD Primary Care Provider Active Linda Díaz PA, PA Attending Provider Active Team Status: Active Member Role Status Dates Dr. Violetta Mcfarlane MD Primary Care Provider Active Dr. Elroy Hdez MD Attending Provider, Referring P rovider Active Team Status: Active Member Role Status Dates Dr. Violetta Mcfarlane MD Primary Care Provider, Attendi ng Provider Active Team Status: Inactive Member Role Status Dates Dr. Violetta Mcfarlane MD Primary Care Provider Active Dr. Elroy Hdez MD Attending Provider, Referring P rovider Active Team Status: Inactive Member Role Status Dates Dr. Violetta Mcfarlane MD Primary Care Provider, Attendi ng Provider Active Core Java Engineer Relationship Specialty Start Date End Date Ritesh Antonio MD [address] [place] [address] PCP - General Family Medicine 06/07/18 05/11/22 Violetta Mcfarlane MD NO FORWARDING ADDRESS PCP - General Internal Medicine 05/12/22 Team Status: Active Member Role Status Dates Dr. Violetta Mcfarlane MD Primary Care Provider Active Dr. Zachery Vanegas MD Referring Provider, Emergency Pro vider Active Dr. Quiana Dodd MD Admit Provider, A ttending Provider, Other Provider Active Team Status: Inactive Member Role Status Dates Dr. Violetta Mcfarlane MD Primary Care Provider Active Dr. America Costello MD Attending Provider, Referring Provider Active Team Status: Active Member Role Status Dates Dr. Violetta Mcfarlane MD Primary Care Provider Active Dr. Zachery Vanegas MD Referring Provider, Emergency Pro vider Active Dr. Quiana Dodd MD Admit Provider, Attending Provi dmitry Active Team Status: Active Member Role Status Dates Dr. Violetta Mcfarlane MD Primary Care Provider Active Dr. Zachery Vanegas MD Referring Provider, Emergency Pro vider Active Dr. Quiana Dodd MD Admit Provider, Other Provider Active Dr. Peterson Cordoba DO Attending Provider, Other Pro vider Active Dr. Herb Valenzuela MD Other Provider Active Team Status: Inactive Member Role Status Dates Dr. Violetta Mcfarlane MD Primary Care Provider Active Dr. Zachery Vanegas MD Referring Provider, Emergency Pro vider Active Dr. Quiana Dodd MD Admit Provider, Other Provider Active Dr. Peterson Cordoba DO Attending Provider Active Dr. Herb Valenzuela MD Other Provider Active Team Status: Inactive Member Role Status Dates Dr. Violetta Mcfarlane MD Primary Care Provider, Referri ng Provider Active Linda Díaz PA, PA Attending Provider Active Team Status: Active Member Role Status Dates Dr. Violetta Mcfarlane MD Primary Care Provider Active Dr. Zachery Vanegas MD Emergency Provider Active Dr. Quiana Dodd MD Admit Provider, Other Provider Active Dr. Peterson Cordoba DO Attending Provider, Other Pro vider Active Dr. Herb Valenzuela MD Other Provider Active Team Status: Inactive Member Role Status Dates Dr. Violetta Mcfarlane MD Primary Care Provider, Referri ng Provider Active Dr. Panchito Khan DO Attending Provider Active Team Status: Inactive Member Role Status Dates Dr. Violetta Mcfarlane MD Primary Care Provider Active Dr. Panchito Khan DO Attending Provider, Referring Provider Active Team Status: Active Member Role Status Dates Dr. Violetta Mcfarlane MD Primary Care Provider Active Team Status: Inactive Member Role Status Dates Dr. Violetta Mcfarlane MD Primary Care Provider Active Start: June 26, 2024 End: June 26, 2024 Dr. Violetta Mcfarlane MD Referring Provider Active Start: June 26, 2024 End: June 26, 2024 Dr. Panchito Khan DO Attending Provider Active Start: June 26, 2024 End: June 26, 2024 Team Status: Inactive Member Role Status Dates Dr. Violetta Mcfarlane MD Primary Care Provider Active Start: July 13, 2024 End: July 13, 2024 Dr. Violetta Mcfarlane MD Referring Provider Active Start: July 13, 2024 End: July 13, 2024 Dr. Herb Simons MD Attending Provider Active Start: July 13, 2024 End: July 13, 2024 Team Status: Inactive Member Role Status Dates Dr. Violetta Mcfarlane MD Primary Care Provider Active Start: July 31, 2024 End: July 31, 2024 Dr. Panchito Khan DO Attending Provider Active Start: July 31, 2024 End: July 31, 2024 Dr. Panchito Khan DO Referring Provider Active Start: July 31, 2024 End: July 31, 2024 Team Status: Active Member Role/Relationship Status Dates Dr. Violetta Mcfarlane MD Primary Care Provider Active Team Status: Inactive Member Role/Relationship Status Dates Dr. Violetta Mcfarlane MD Primary Care Provider Active Start: June 26, 2024 End: June 26, 2024 Dr. Violetta Mcfarlane MD Referring Provider Active Start: June 26, 2024 End: June 26, 2024 Dr. Panchito Khan DO Attending Provider Active Start: June 26, 2024 End: June 26, 2024 Team Status: Inactive Member Role/Relationship Status Dates Dr. Violetta Mcfarlane MD Primary Care Provider Active Start: July 13, 2024 End: July 13, 2024 Dr. Violetta Mcfarlane MD Referring Provider Active Start: July 13, 2024 End: July 13, 2024 Dr. Herb Simons MD Attending Provider Active Start: July 13, 2024 End: July 13, 2024 Team Status: Inactive Member Role/Relationship Status Dates Dr. Violetta Mcfarlane MD Primary Care Provider Active Start: July 31, 2024 End: July 31, 2024 Dr. Panchito Khan DO Attending Provider Active Start: July 31, 2024 End: July 31, 2024 Dr. Panchito Khan DO Referring Provider Active Start: July 31, 2024 End: July 31, 2024 Team Status: Inactive Member Role/Relationship Status Dates Dr. Violetta Mcfarlane MD Primary Care Provider Active Start: September 04, 2024 End: September 04, 2024 Dr. Violetta Mcfarlane MD Attending Provider Active Start: September 04, 2024 End: September 04, 2024 Dr. Violetta Mcfarlane MD Referring Provider Active Start: September 04, 2024 End: September 04, 2024 Team Status: Inactive Member Role/Relationship Status Dates Dr. Violetta Mcfarlane MD Primary Care Provider Active Start: September 13, 2024 End: September 13, 2024 Dr. Violetta Mcfarlane MD Attending Provider Active Start: September 13, 2024 End: September 13, 2024 Dr. Violetta Mcfarlane MD Referring Provider Active Start: September 13, 2024 End: September 13, 2024 Source Comments (unrecognize d section and content) In the event this informatio n is protected by the Federal Confidentiality of Alcohol and Drug Abuse Patient Records regulations: The Federal rules restrict any use of the information to criminally investigate or prosecute any alcohol or drug abuse patient.[facility] the event this information is protected by the Federal Confidentiality of Alcohol and Drug Abuse Patient Records regulations: The Federal rules restrict any use of the information to criminally investigate or prosecute any alcohol or drug abuse patient.[facility] the event this information is protected by the Federal Confidentiality of Alcohol and Drug Abuse Patient Records regulations: The Federal rules restrict any use of the information to criminally investigate or prosecute any alcohol or drug abuse patient.[facility] the event this information is protected by the Federal Confidentiality of Alcohol and Drug Abuse Patient Records regulations: The Federal rules restrict any use of the information to criminally investigate or prosecute any alcohol or drug abuse patient.[facility] the event this information is protected by the Federal Confidentiality of Alcohol and Drug Abuse Patient Records regulations: The Federal rules restrict any use of the information to criminally investigate or prosecute any alcohol or drug abuse patient.[facility] the event this information is protected by the Federal Confidentiality of Alcohol and Drug Abuse Patient Records regulations: The Federal rules restrict any use of the information to criminally investigate or prosecute any alcohol or drug abuse patient.[facility] the event this information is protected by the Federal Confidentiality of Alcohol and Drug Abuse Patient Records regulations: The Federal rules restrict any use of the information to criminally investigate or prosecute any alcohol or drug abuse patient.[facility] the event this information is protected by the Federal Confidentiality of Alcohol and Drug Abuse Patient Records regulations: The Federal rules restrict any use of the information to criminally investigate or prosecute any alcohol or drug abuse patient.[facility] the event this information is protected by the Federal Confidentiality of Alcohol and Drug Abuse Patient Records regulations: The Federal rules restrict any use of the information to criminally investigate or prosecute any alcohol or drug abuse patient.[facility] the event this information is protected by the Federal Confidentiality of Alcohol and Drug Abuse Patient Records regulations: The Federal rules restrict any use of the information to criminally investigate or prosecute any alcohol or drug abuse patient.[facility] Reason for Visit (unrecogniz ed section and content) Reason Comments Nasal Congestion drainage x couple mo nths Reason Comments Yearly Exam Work physical has qu estions about trazodone Reason Comments Chest Congestion Cough x 5 days Reason Comments Established Patient return to work clear ance Reason Comments Results Reason Comments Patient Update Reason Comments Refill Request FOR RECORDS PERTAINING TO PATIENTS WHO ARE OR HAVE BEEN ENROLLED IN A CHEMICAL DEPENDENCY/SUBSTANCEABUSE PROGRAM, SOME INFORMATION MAY BE OMITTED. This clinical summary was aggregated from multiple sources. Caution should be exercised in using it in the provision of clinical care. This summary normalizes information from multiple sources, and as a consequence, information in this document may materially change the coding, format and clinical context of patient data. In addition, data may be omitted in some cases. CLINICAL DECISIONS SHOULD BE BASED ON THE PRIMARY CLINICAL RECORDS. [facility] [employer] [facility]. provides no warranty or guarantee of the accuracy or completeness of information in this document.
[2024-09-20 10:25] LABS: Hematocrit 38.9 % (37-47); Hemoglobin 13.1 g/dL (12.0-15.0); Immature Granulocytes Count 0.000 X10^3/uL (0.0-0.0); Mean Corp Hgb Conc 33.7 g/dL (32-36); Mean Corpuscular Volume 94.2 fL (81-99); Mean Platelet Vol. 10.1 fl (6.2-12.0); NRBC Flagged by Analyzer 0 % (0-5); Platelet Count 151 K/mm3 (150-450); RBC Distribution Width CV 11.9 % (11.6-14.6); RBC Distribution Width SD 41.4 fl (35.1-43.9); Red Blood Count 4.13 M/mm3 (4.2-5.4); White Blood Count 2.6 K/mm3 (4.4-11.0)
[2024-09-20 11:57] LABS: AST(SGOT) 22 U/L (<=31); Alanine Aminotransfer ALT/SGPT 17 U/L (<=34); Albumin, Serum 4.0 g/dL (3.4-4.8); Alkaline Phosphatase 68 U/L (35-104); Anion Gap 10 (5-15); BUN 12 mg/dL (4-19); BUN/Creat Ratio 10.9 RATIO (10-20); CRP < 3.00 mg/L (0.0-3.0); Calcium,Total 9.5 mg/dL (7.6-11.0); Carbon Dioxide 25.1 mmol/L (21.0-32.0); Chloride 107 mmol/L (98-108); Globulin 2.4 g/dL (2.2-4.2); Glucose 87 mg/dL (70-99); Potassium 4.7 mmol/L (3.3-5.1)
[2024-09-22 23:07] LABS: Red Blood Cell Count Test/G6PD 4.27 x10E6/uL (3.77-5.28)
== END | disposition home or self-care (01) ==
LOC: MTLAB 07:05
PROVIDERS: PCP Internal Medicine; Referring Provider Internal Medicine Rheumatology; Visit Provider Internal Medicine Rheumatology
DX: M06.4 Inflammatory polyarthropathy (principal); R76.8 Other specified abnormal immunological findings in serum; Z79.899 Other long term (current) drug therapy
CPT/HCPCS: 36415; 80053; 82955; 85025; 85652; 86140

== ENCOUNTER → 2024-09-21 | Outpatient (CLI) | payer OTHER, SELFPAY ==
--- NOTE | 2024-09-21 13:00 | CYST_PTH ---
PATIENT: MARK ANDERSON LOC: [facility] U#:[id number] AGE/SX: 64/F ROOM: RE09/21/[address]: Dr. Shin Archer DPM : 1960 BED: DIS: 09/21/2024 SPEC #: [id number] RECD: 09/21/24 15:30 STATUS: ANA REPb #: [id number] ANDREY: 09/21/24 13:[address]: Shin Archer DEPT: SURGICAL PATHOLOGY RECD BY: Junior Reno ENTERED: 09/21/24 15:30 SP TYPE: Cyst OTHR DR: Dr. Jayla Mcfarlane MD Tissues: A - CYST Procedures: Surgery Specimen Level III HEADER OPERATION: Excision and destruction of a ganglion cyst of left hallux PRE-OP DIAGNOSIS: Ganglion, left ankle and foot TISSUE SUBMITTED: A- Left hallux MICROSCOPIC DIAGNOSIS A. Left hallux, ganglion cyst, excision: - Fibroadipose tissue with blood vessels, nerves, and focal fibrosis, containing cystic spaces consistent with ganglion cyst. MICROSCOPIC DESCRIPTION Slides are reviewed. GROSS DESCRIPTION A. Received in formalin labeled with the patient's name and date of . Designated as ganglion cyst left hallux is a 1.5 x 1.0 x 0.4 cm focally disrupted cyst with attached aggarwal-pink to yellow tissue. The specimen is serially sectioned and entirely submitted in 1 cassette. PA 09/21/2024 CPT:72951
== END | disposition home or self-care (01) ==
PROVIDERS: PCP Internal Medicine; Referring Provider Student in an Organized Health Care Education/Training Program; Visit Provider Student in an Organized Health Care Education/Training Program
DX: M67.472 Ganglion, left ankle and foot (principal)
CPT/HCPCS: 88304